=== PATIENT | male | born 1950 | race Caucasian/White ===

== ENCOUNTER 2017-10-02 21:35 | Emergency (ER) | payer MEDICARE, SELFPAY ==
[2017-10-02 21:37] VITALS: BP 166/88; PULSE 86; RESP 16; TEMP 37; O2SAT 98; BMI 29.8
[2017-10-02 21:59] VITALS: O2SAT 97
--- NOTE | 2017-10-02 21:59 | EKG12_ITS ---
Test Reason : CP Blood Pressure : / mmHG Vent. Rate : 085 BPM Atrial Rate : 085 BPM P-R Int : 168 ms QRS Dur : 098 ms QT Int : 386 ms P-R-T Axes : 035 -38 034 degrees QTc Int : 459 ms Normal sinus rhythm Left axis deviation Low voltage QRS Inferior infarct , age undetermined Anterolateral infarct , age undetermined Abnormal ECG Confirmed by RAY REYNA, BATSHEVA ([id number]), photographic editor RADHA FENG ([id number]) on 10/04/2017 3:39:02 PM Referred By: OSMIN Confirmed By:BATSHEVA BELL MD
--- NOTE | 2017-10-02 21:59 | RAD_ITS ---
STUDY: X-RAY CHEST REASON FOR EXAM: Male, 67 years old. Chest pain and cough TECHNIQUE: Portable COMPARISON: December 01, 2014 FINDINGS: The lungs are clear and expanded. There is no demonstrated pleural abnormality. Heart is enlarged. There is asymmetric mediastinal widening on the left. Normal visualized pulmonary arteries. Normal visualized aortic arch and descending thoracic aorta. Normal visualized thoracic spine. Normal visualized ribs, clavicles, and shoulders. Postop changes status post median sternotomy and CABG. There is no demonstrated abnormality of the visualized soft tissue structures of the upper abdomen. RAD/Chest 1 View (Portable) IMPRESSION: Heart is enlarged and asymmetric left mediastinal widening. . Possibility of mediastinal mass or aneurysmal excluded. CT would be helpful for further evaluation Electronically Signed: Devaughn Deshpande MD at 22:43 EDT , Service support ,
--- NOTE | 2017-10-02 22:02 | ED.VISSUMM ---
- ER Visit Summary Date of Service: 10/02/17 Chief Complaint: Chest pain History of Present Illness: The patient is a 67 M with chest pain that started at 8:30 PM tonight. The patient has a history of coronary disease and had a CABG just over 1 month ago at the [facility]. He does not know the surgeon's name. He has been doing well, walking a mile a day. The pain started tonight at 830 and is new. It lasts for a few seconds at a time, it is sharp, and it is over his left chest only. No other associated symptoms. No history of DVT. Physical Examination: Afebrile and vitals unremarkable. Patient sitting comfortably. Skin appears normal without pallor or diaphoresis. Heart regular rate and rhythm. Lungs clear. Calves soft and supple. Pulses strong and equal. Test Results: EKG showed sinus rhythm at a rate of 85. Nonspecific ST and T-wave changes. No acute ischemia or infarction pattern. Labs and chest x-ray are pending. Emergency Department Course and Treatment: Patient was placed on a monitor. He received aspirin. Will await results. Patient had continued episodes of pain. I did witness an episode. He coughs and then has sudden left-sided chest pain that lasts a few seconds, almost like a spasm. His workup here was fairly unremarkable. Hemoglobin slightly down at 10.9. BUN 28 and creatinine 1.45, slightly up. Coags normal. Troponin normal. Chest x-ray showed a widened mediastinum and so a CT was done. This showed no evidence of PE or dissection. He has some mediastinal lymph nodes, bilateral bronchiectasis, and atelectasis. Patient did not know the name of his doctor. I explained that I would normally like to speak with the surgeon for follow-up. He will call for follow-up in the morning. I do not think this is a surgical complication. His workup here was unremarkable. He is doing well and his vitals are unremarkable. He will return if he has any new or worsening issues. Treatment Plan: As above Disposition: Discharged Impression: 1. Chest pain unclear etiology This note was generated with [employer] software. It may contain incorrect words, spelling, and punctuation that were not noted in review of the chart prior to signing ED Disposition - Plan for ED Patient: Chief Complaint: Chest Pain Referrals: Luther Tavarez MD [STAFF PHYSICIAN] -
--- NOTE | 2017-10-02 22:05 | ED.DCSUM_ITS ---
- ER Visit Summary Date of Service: 10/02/17 Chief Complaint: Chest pain History of Present Illness: The patient is a 67 M with chest pain that started at 8:30 PM tonight. The patient has a history of coronary disease and had a CABG just over 1 month ago at the [facility]. He does not know the surgeon's name. He has been doing well, walking a mile a day. The pain started tonight at 830 and is new. It lasts for a few seconds at a time, it is sharp, and it is over his left chest only. No other associated symptoms. No history of DVT. Physical Examination: Afebrile and vitals unremarkable. Patient sitting comfortably. Skin appears normal without pallor or diaphoresis. Heart regular rate and rhythm. Lungs clear. Calves soft and supple. Pulses strong and equal. Test Results: EKG showed sinus rhythm at a rate of 85. Nonspecific ST and T- wave changes. No acute ischemia or infarction pattern. Labs and chest x-ray are pending. Emergency Department Course and Treatment: Patient was placed on a monitor. He received aspirin. Will await results. Patient had continued episodes of pain. I did witness an episode. He coughs and then has sudden left-sided chest pain that lasts a few seconds, almost like a spasm. His workup here was fairly unremarkable. Hemoglobin slightly down at 10.9. BUN 28 and creatinine 1.45, slightly up. Coags normal. Troponin normal. Chest x-ray showed a widened mediastinum and so a CT was done. This showed no evidence of PE or dissection. He has some mediastinal lymph nodes, bilateral bronchiectasis, and atelectasis. Patient did not know the name of his doctor. I explained that I would normally like to speak with the surgeon for follow-up. He will call for follow-up in the morning. I do not think this is a surgical complication. His workup here was unremarkable. He is doing well and his vitals are unremarkable. He will return if he has any new or worsening issues. Treatment Plan: As above Disposition: Discharged Impression: 1. Chest pain unclear etiology This note was generated with [employer] software. It may contain incorrect words, spelling, and punctuation that were not noted in review of the chart prior to signing ED Disposition - Plan for ED Patient: Chief Complaint: Chest Pain Referrals: Luther Tavarez MD [STAFF PHYSICIAN] -
[2017-10-02] MEDS: Aspirin 81 MG TAB.CHEW 324 MG PO (22:16)
[2017-10-02 22:24] LABS: Absolute Lymphocyte Count 3.44 X10^3/ul (0.83-4.51); Absolute Neutrophil Count 3.5 X10^3/uL (2.0-7.7); Basophil# 0.03 X10^3/uL; Basophil% 0.4 % (0-1); Eosinophil# 0.13 X10^3/uL; Eosinophils% 1.6 % (0-5); Hematocrit 34.9 % (40-54); Hemoglobin 10.9 g/dl (13.0-16.5); Lymphocyte # 3.44 X10^3/ul (4.0); Lymphocyte % 43.3 % (19-41); Mean Corp Hgb Conc 31.2 g/gl (32-36); Mean Corpuscular Hgb 26.5 pg (27.0-32.0); Mean Corpuscular Volume 84.7 fL (80-94); Mean Platelet Vol. 10.7 fl (6.2-12.0); Monocyte# 0.77 X10^3/uL; Monocyte% 9.7 % (0-10); Neutrophil # 3.51 X10^3/uL (2.7-7.7); Neutrophil % 44.1 % (47-70); Platelet Count 270 K/mm3 (150-450); RBC Distribution Width CV 14.6 % (11.6-14.6); RBC Distribution Width SD 45.4 fl (35.1-43.9); Red Blood Count 4.12 M/mm3 (4.6-6.2)
[2017-10-02 22:32] LABS: POSITIVE COUNT NO; POSITIVE DIFFERENTIAL NO; POSITIVE MORPHOLOGY NO
[2017-10-02 22:45] LABS: International Normalized Ratio 1.2; Prothrombin Time (Protime)PT. 15.5 SECONDS (11.7-14.9)
[2017-10-02 22:46] LABS: Partial Thromboplast Time 36.5 Seconds (24.1-36.2)
[2017-10-02 22:48] LABS: Anion Gap 6 (5-15); BUN 28 mg/dL (7-18); BUN/Creat Ratio 19.3 RATIO (10-20); Calcium,Total 9.1 mg/dL (8.5-10.1); Chloride 103 mmol/L (98-107); Creatinine, Serum 1.45 mg/dL (0.70-1.30); EST Glomerular Filtration Rate 51 mL/min (>60); Est Glom Filt Rate - Afr Amer 62 mL/min (>60); Estimated Creatinine Clearance 49.65 ml/min; Glucose 274 mg/dL (74-106); Potassium 3.8 mmol/L (3.5-5.1); Sodium Level 135 mmol/L (136-145)
[2017-10-02 23:36] VITALS: BP 153/69; PULSE 84; RESP 26; O2SAT 97
[2017-10-03] MEDS: HYDROmorphone 1 MG/ML Syringe IV (01:31)
[2017-10-03 01:32] VITALS: BP 145/74; PULSE 83; RESP 17; O2SAT 97
--- NOTE | 2017-10-03 02:44 | DCINST.ED_ITS ---
ED Disposition - Plan for ED Patient: Chief Complaint: Chest Pain Instructions: ED Chest Pain Atypical Unkn Cause Prescriptions: Hydrocodone Bitart/Apap 5-325 [[place] 5MG-325MG] 1 tab PO Q6H PRN PRN 3 Days #12 tab PRN Reason: Pain Referrals: Luther Tavarez MD [STAFF PHYSICIAN] -
[2017-10-03 03:17] VITALS: BP 134/82; PULSE 79; RESP 16; O2SAT 95
--- NOTE | 2017-10-03 23:47 | CT_ITS ---
STUDY: CTA CHEST REASON FOR EXAM: Male, 67 years old. Cough, sharp chest pain. Postop total bypass surgery August 15, 2017. RADIATION DOSAGE (If Supplied By Facility): CTDIvol = ( 16.51 ) mGy, DLP = ( 680.74 ) mGycm TECHNIQUE: The examination was performed with the intravenous administration of 100ML ml of Isovue 370 contrast material. Post-processing of the angiographic images was performed, with multiplanar reformation and 3D reconstruction. Individualized dose optimization techniques were used for this CT. COMPARISON: November 21, 2014. Chest x-ray October 02, 2017. FINDINGS: Normal enhancement of the main pulmonary artery and right and left pulmonary arteries. Normal enhancement of the bilateral peripheral pulmonary arteries. There is no demonstrated pulmonary embolism. Normal thoracic aorta and visualized great vessels. There is no demonstrated aortic dissection. Normal heart and pericardium. Scattered subcentimeter lymph nodes which are not pathologic by size criteria. Single mildly enlarged 1.3 cm prevascular lymph node unchanged. Normal hilar regions. Normal visualized trachea and bronchi. Bilateral lower lobe bronchiectasis. Bilateral lower lobe subsegmental atelectasis. Normal pulmonary parenchyma. Normal pleura. Sternal wires and surgical clips are present compatible with CABG. Mild degenerative changes of the thoracic spine. Mild loss of vertebral body height in several lower thoracic vertebral bodies which have remained stable. Normal visualized upper abdomen. CT/CTA Chest W/WO Contrast IMPRESSION: No pulmonary embolus or thoracic aortic dissection. Mildly enlarged mediastinal lymph nodes unchanged. Bilateral lower lobe bronchiectasis and subsegmental atelectasis. Electronically Signed: Rivera Sims MD at 1:37 EDT , Service support ,
== END 2017-10-03 03:19 | disposition home or self-care (01) ==
LOC: ED 22:03
PROVIDERS: Emergency Provider Emergency Medicine; Family Provider Family Medicine; PCP Family Medicine
DX: R07.9 Chest pain, unspecified (principal); J47.9 Bronchiectasis, uncomplicated; J98.11 Atelectasis; I25.10 Atherosclerotic heart disease of native coronary artery without angina pectoris; E11.9 Type 2 diabetes mellitus without complications; I10 Essential (primary) hypertension; G25.81 Restless legs syndrome; G47.33 Obstructive sleep apnea (adult) (pediatric); F43.10 Post-traumatic stress disorder, unspecified; X58.XXXA Exposure to other specified factors, initial encounter; Y93.9 Activity, unspecified; Y92.9 Unspecified place or not applicable; Y99.9 Unspecified external cause status; Z79.82 Long term (current) use of aspirin; Z79.4 Long term (current) use of insulin; Z79.899 Other long term (current) drug therapy; Z87.19 Personal history of other diseases of the digestive system
CPT/HCPCS: 71045; 71275; 80048; 84484; 85025; 85610; 85730; 93005; 96374; 99283; Q9967; A4216

== ENCOUNTER 2018-03-20 10:30 | Inpatient (IN) | payer MEDICARE, OTHER, SELFPAY ==
[2018-03-20] VITALS (14 sets, daily range): BP systolic 118–180; BP diastolic 70–96; PULSE 80–96; RESP 14–20; TEMP 36.5–36.7; O2SAT 95–97; BMI 32.2; BMI 31.6; BMI 31.7
--- NOTE | 2018-03-20 10:41 | EKG12_ITS ---
Test Reason : CP Blood Pressure : / mmHG Vent. Rate : 095 BPM Atrial Rate : 095 BPM P-R Int : 152 ms QRS Dur : 104 ms QT Int : 368 ms P-R-T Axes : 045 -33 049 degrees QTc Int : 462 ms Normal sinus rhythm Left axis deviation Inferior infarct , age undetermined Anterolateral infarct , age undetermined Abnormal ECG Confirmed by RAY REYNA, BATSHEVA ([id number]), purchasing expeditor RADHA FENG ([id number]) on 03/23/2018 2:26:11 PM Referred By: MIGUEL Confirmed By:BATSHEVA BELL MD
--- NOTE | 2018-03-20 10:45 | RAD_ITS ---
STUDY: X-RAY CHEST REASON FOR EXAM: Male, 67 years old. Chest pain. Prior CABG. TECHNIQUE: Single AP portable view of the chest. COMPARISON: Comparison is made with prior study dated October 02, 2017. FINDINGS: EKG electrodes are seen. Stable mild increased markings in the lingular segment of the left upper lobe suggestive of scarring. There is no demonstrated pleural abnormality. Sternal cerclage wires and vascular clips are present from a prior sternotomy and coronary artery bypass graft procedure (CABG). Moderate cardiomegaly. Normal mediastinum and sade. Normal visualized pulmonary arteries. Normal visualized aortic arch and descending thoracic aorta. Normal visualized thoracic spine. Normal visualized ribs, clavicles, and shoulders. There is no demonstrated abnormality of the visualized soft tissue structures of the upper abdomen. RAD/Chest 1 View (Portable) IMPRESSION: Cardiomegaly. No acute abnormality is seen. Electronically Signed: Checo Ball MD at 11:14 EST Tel [phone], Service support ,
[2018-03-20] MEDS: 0.9% Normal Saline 1,000 ML 150 ML IV (10:52)
[2018-03-20] MEDS: Aspirin 81 MG TAB.CHEW 324 MG PO (10:52)
[2018-03-20 10:57] LABS: Absolute Lymphocyte Count 2.25 X10^3/ul (0.83-4.51); Absolute Neutrophil Count 5.2 X10^3/uL (2.0-7.7); Basophil# 0.04 X10^3/uL; Basophil% 0.5 % (0-1); Eosinophil# 0.14 X10^3/uL; Eosinophils% 1.7 % (0-5); Hematocrit 40.7 % (40-54); Hemoglobin 13.3 g/dl (13.0-16.5); Lymphocyte # 2.25 X10^3/ul (4.0); Mean Corp Hgb Conc 32.7 g/gl (32-36); Mean Corpuscular Hgb 27.6 pg (27.0-32.0); Mean Corpuscular Volume 84.4 fL (80-94); Mean Platelet Vol. 12.3 fl (6.2-12.0); Monocyte# 0.62 X10^3/uL; Monocyte% 7.4 % (0-10); Neutrophil # 5.23 X10^3/uL (2.7-7.7); Neutrophil % 62.7 % (47-70); Platelet Count 174 K/mm3 (150-450); RBC Distribution Width CV 14.7 % (11.6-14.6); RBC Distribution Width SD 44.3 fl (35.1-43.9); Red Blood Count 4.82 M/mm3 (4.6-6.2); White Blood Count 8.3 K/mm3 (4.4-11.0)
[2018-03-20 10:59] LABS: POSITIVE COUNT NO; POSITIVE DIFFERENTIAL NO; POSITIVE MORPHOLOGY NO
[2018-03-20 11:05] LABS: D-Dimer Quantitative (DVT/PE) 2.83 FEU/ug/m (0.27-0.49)
--- NOTE | 2018-03-20 11:06 | CT_ITS ---
STUDY: CTA CHEST REASON FOR EXAM: Male, 67 years old. 2 day history of chest pain. Elevated d-dimer. RADIATION DOSAGE (If Supplied By Facility): CTDIvol = ( 17.65 ) mGy, DLP = ( 668.68 ) mGycm TECHNIQUE: The examination was performed with the intravenous administration of 100ml ml of Isovue 370 contrast material. Post-processing of the angiographic images was performed, with multiplanar reformation and 3D reconstruction. Individualized dose optimization techniques were used for this CT. COMPARISON: Comparison is made with prior study dated October 03, 2017. FINDINGS: Small bilateral axillary lymph nodes. Normal enhancement of the main pulmonary artery and right and left pulmonary arteries. Normal enhancement of the bilateral peripheral pulmonary arteries. There is no demonstrated pulmonary embolism. Normal thoracic aorta and visualized great vessels. There is no demonstrated aortic dissection. Sternal cerclage wires and vascular clips are present from a prior sternotomy and coronary artery bypass graft procedure (CABG). There are visualized mediastinal lymph nodes, which are within normal size limits, and with normal morphology. Normal hilar regions. Normal visualized trachea and bronchi. The lungs are well expanded. Stable minimal increased markings at the lung bases. Normal pleura. Normal chest wall structures. There are degenerative changes of thoracic spine. The patient is status post cholecystectomy. CT/CTA Chest W/WO Contrast IMPRESSION: Normal CTA chest examination, without a demonstrated pulmonary embolism or arterial dissection. Electronically Signed: Checo Ball MD at 12:46 EST Tel [phone], Service support ,
[2018-03-20 11:31] LABS: Anion Gap 9 (5-15); BUN 32 mg/dL (7-18); BUN/Creat Ratio 23.9 RATIO (10-20); Calcium,Total 9.2 mg/dL (8.5-10.1); Chloride 102 mmol/L (98-107); Creatinine, Serum 1.34 mg/dL (0.70-1.30); EST Glomerular Filtration Rate 56 mL/min (>60); Est Glom Filt Rate - Afr Amer 68 mL/min (>60); Estimated Creatinine Clearance 53.72 ml/min; Glucose 383 mg/dL (74-106); Potassium 4.5 mmol/L (3.5-5.1); Sodium Level 134 mmol/L (136-145)
--- NOTE | 2018-03-20 12:55 | ED.VISSUMM ---
- ER Visit Summary Date of Service: 03/20/18 Chief Complaint: [Chest pain] History of Present Illness: The patient is a 67 M [presents the emergency department complaint chest pain that started 3 or 4 days ago. Patient describes intermittent burning and stabbing in the retrosternal area and left chest. Patient denies any radiation of the pain. He denies any diaphoresis although he has had nausea and also complains of shortness of breath. Patient states the pain typically is brought on by activity and exertion. Patient had similar pains prior to requiring three-vessel CABG in August 2017. Patient denies recent travel or surgery. Patient is not on any blood thinners other than baby aspirin daily. Patient also has history of pancreatitis. Patient is a diabetic and history of hypertension.] Physical Examination: HEENT-PERRLA, EOMI. Cranial nerves II through XII grossly intact. TMs clear. Mucous membranes moist. No adenopathy. Cardiovascular-regular rate and rhythm without murmur or ectopy Lungs-clear to auscultation, chest wall stable without crepitus or subcu emphysema Abdomen-normoactive bowel sounds, soft, nontender, no rebound or rigidity, no peritoneal signs. 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 When compared with prior EKG from October 02, 2017 no significant changes noted. See with it was unremarkable. Chemistries unremarkable. Troponin was elevated 0.231. D-dimer was elevated 2.83. CT of the chest obtained showed no PE or dissection. Chest x-ray was unremarkable.] Emergency Department Course and Treatment: [Patient received aspirin in the emergency department as well as sublingual nitro which mostly resolved his pain. Patient had an inch of Nitropaste placed to the anterior chest wall. Patient was given a dose of Lovenox subcu.] Patient does not want to be transferred to the [place] and would prefer to remain at [place]. Treatment Plan: [Admit for further workup and evaluation. I discussed case with hospitalist who asked that I discussed case with cardiology. I was told wader boot top assembler on-call is currently in a procedure performing a heart catheterization but I did inform them that he would be consulted on the case.] Disposition: [Admit] Impression: [Chest pain Non-ST elevation [place]] This note was generated with [employer] dictation software. It may contain incorrect words, spelling, and punctuation that were not noted in review of the chart prior to signing ED Disposition - Plan for ED Patient: Chief Complaint: Chest Pain Referrals: Dima Tavarez MD [Primary Care Provider] -
--- NOTE | 2018-03-20 12:58 | ED.DCSUM_ITS ---
- ER Visit Summary Date of Service: 03/20/18 Chief Complaint: [Chest pain] History of Present Illness: The patient is a 67 M [presents the emergency department complaint chest pain that started 3 or 4 days ago. Patient describes intermittent burning and stabbing in the retrosternal area and left chest. Manoj can denies any radiation of the pain. He denies any diaphoresis although he has had nausea and also complains of shortness of breath. Patient states the pain typically is brought on by activity and exertion. Patient had similar pains prior to requiring three-vessel CABG in August 2017. Patient denies recent travel or surgery. Patient is not on any blood thinners other than baby aspirin daily. Patient also has history of pancreatitis. Patient is a diabetic and history of hypertension.] Physical Examination: HEENT-PERRLA, EOMI. Cranial nerves II through XII grossly intact. TMs clear. Mucous membranes moist. No adenopathy. Cardiovascular-regular rate and rhythm without murmur or ectopy Lungs-clear to auscultation, chest wall stable without crepitus or subcu e mphysema Abdomen-normoactive bowel sounds, soft, nontender, no rebound or rigidity, no peritoneal signs. 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 When compared with prior EKG from October 02, 2017 no significant changes noted. See with it was unremarkable. Chemistries unremarkable. Troponin was elevated 0.231. D-dimer was elevated 2.83. CT of the chest obtained showed no PE or dissection. Chest x-ray was unremarkable.] Emergency Department Course and Treatment: [Patient received aspirin in the emergency department as well as sublingual nitro which mostly resolved his pain. Patient had an inch of Nitropaste placed to the anterior chest wall. Patient was given a dose of Lovenox subcu.] Patient does not want to be transferred to the [place] and would prefer to remain at [place]. Treatment Plan: [Admit for further workup and evaluation. I discussed case with hospitalist who asked that I discussed case with cardiology. I was told car diologist on-call is currently in a procedure performing a heart catheterization but I did inform them that he would be consulted on the case.] Disposition: [Admit] Impression: [Chest pain Non-ST elevation [place]] This note was generated with [employer] dictation software. It may contain incorrect words, spelling, and punctuation that were not noted in review of the chart prior to signing ED Disposition - Plan for ED Patient: Chief Complaint: Chest Pain Referrals: Dima Tavarez MD [Primary Care Provider] -
[2018-03-20] MEDS: Enoxaparin 100 MG/ML Syringe SC ×2 (13:15→21:08)
[2018-03-20] MEDS: Nitroglycerin Oint 1 INCH PACKET TRANSDERM. (13:15)
--- NOTE | 2018-03-20 13:22 | HP.PCM_ITS ---
Problem List (1) Chest pain Status: Acute (2) Numbness and tingling in right hand Status: Chronic (3) Pancreatitis Status: Resolved (4) Chronic headaches Status: Chronic (5) Hypertension Status: Chronic (6) Neuropathy Status: Chronic (7) Obstructive sleep apnea Status: Chronic (8) Post traumatic stress disorder (PTSD) Status: Chronic (9) Restless legs syndrome Status: Chronic (10) Type 2 diabetes mellitus Status: Chronic (11) Hx of CABG Status: Chronic History of Present Illness Date of Admission: 03/20/18 Chief Complaint: Chest discomfort The patient is a 67 year old M with past medical history cigar for CAD status post CABG in August 2017 at [facility] in [place] who presented with chest discomfort. Patient reports weeks of intermittent chest discomfort similar to what he experienced prior to his bypass. Patient in addition did complain of shortness of breath with activity as well as persistent cough. He presented to the emergency department in view of the progressive nature of his symptoms. Patient was found to have slightly elevated troponin and an elevated d-dimer. Underwent CTA of the chest which was negative for PE no dissection. Treatment initiated in the ED with therapeutic Lovenox and patient admitted to a monitored bed for subsequent evaluation and management. Past Medical History Past Medical History (Chronic Problems): Chronic Problems Hx of CABG (Chronic) Post traumatic stress disorder (PTSD) (Chronic) Type 2 diabetes mellitus (Chronic) Neuropathy (Chronic) Obstructive sleep apnea (Chronic) Hypertension (Chronic) Restless legs syndrome (Chronic) Chronic headaches (Chronic) Numbness and tingling in right hand (Chronic) Allergies oxycodone [From OxyContin] Allergy (Verified 03/20/18 10:37) Shortness of breath atorvastatin [From Lipitor] Adverse Reaction (Verified 03/20/18 10:37) Other muscle weakness fish oil Adverse Reaction (Verified 03/20/18 10:37) Other muscle weakness morphine Adverse Reaction (Verified 03/20/18 10:37) Other MIGRAIN TAO Home Medications: Ambulatory Orders Medication Instructions Recorded Aspirin [Aspirin, Baby] 81 mg PO QODAY 11/21/14 Carbidopa/Levodopa 10/100 [Sinemet 1 tablet PO QHS PRN 12/23/16 10/100] Dextrose [Glucose] 4 gm PO PRN PRN 12/23/16 Insulin Aspart [Novolog Flexpen] 20 units SC DINNER 12/23/16 Insulin Aspart [Novolog Flexpen] 24 units SC BREAKFAST 12/23/16 Insulin Aspart [Novolog Flexpen] 28 units SC LUNCH 12/23/16 Insulin Glargine [Lantus SoloStar 60 units SC BID 12/23/16 Pen] Multivitamin,Therapeutic [Thera] 1 each PO DAILY 12/23/16 Omeprazole [Prilosec] 20 mg PO QODAY 12/23/16 Pregabalin [Lyrica] 150 mg PO Q8H 12/23/16 Pyridoxine HCl [Vitamin B-6] 100 mg PO DAILY 12/23/16 Thiamine HCl [Vitamin B-1] 100 mg PO DAILY 12/23/16 Ondansetron HCl [Zofran] 8 mg PO TID PRN #15 tablet 12/25/16 Gemfibrozil 600 mg PO BID 03/18/17 traZODone [Desyrel] 100 mg PO QHS PRN 03/18/17 Benzonatate [Tessalon Perle] 100 mg PO TID PRN 10/02/17 Fluticasone 0.05% [Flonase Nasal 2 spray NASAL BID 10/02/17 [place]] Furosemide [Lasix] 20 mg PO DAILY 10/02/17 Lisinopril [Zestril] 10 mg PO DAILY 10/02/17 Potassium Chloride [K-Dur] 20 meq PO DAILY 10/02/17 Topiramate [Topamax] 150 mg PO QHS 10/02/17 Surgical History: - - Ankle surgery, facial surgery secondary to accident Psychiatric History: Post traumatic stress Smoking Status: Never smoker - *Family History Maternal History Items: Cancer Paternal History Items: Stroke Review of Systems Constitutional: Denies: Anorexia, Chills, Fever, Night Sweats, Weight Change HEENT: Reports: Sinus Congestion. Denies: Head Aches, Sinus Drainage Cardiovascular: Reports: Chest Pain. Denies: Orthopnea, Palpitations, Paroxysmal Noc. Dyspnea Respiratory: Reports: Cough, Shortness of Breath. Denies: Shortness of breath at rest, Shortness of breath upon exertion, Sputum production Gastrointestinal: Denies: Abdominal Pain, Hematemesis, Hematochezia, Nausea, Melena, Vomiting Genitourinary: Denies: Dysuria, Frequency, Hematuria, Urgency Musculoskeletal: Denies: Joint Pain, Joint Tenderness Skin: Denies: Rash Neurological: Denies: Focal weakness, Numbness, Tingling Psychiatric: Denies: Homicidal Ideations, Suicidal Ideations Hematologic/ Lymphatic: Denies: Easy Bruising, Easy Bleeding VTE Information - Inpt Only VTE Present on Admission: No VTE Mechan Device Prophylaxis: Knee High WILFREDO Hose VTE Pharm Prophylaxis ordered?: Yes Objective: GENERAL: cooperative HEENT: Atraumatic; moist oral mucosa EYES; Anicteric, Normal Conjunctiva NECK; supple, normal thyroid, no distended JVD. RESPIRATORY: Diminished to auscultation bilaterally, CARDIOVASCULAR: Regular S1 S2, no audible murmurs GI: soft, non-tender, normoactive bowel sounds, : No Renal angle tenderness; EXTREMITIES: No edema, no clubbing, no cyanosis. MUSCULOSKELETAL: No Joint Tenderness; no muscle waisting NEURO: Awake; no lateralizing signs. SKIN: No Rash PSYCH; Normal affect - Physical Exam Vital Signs Temp Pulse Resp BP Pulse Ox 97.7 F L 80 20 H 174/85 H 97 03/20/18 10:31 03/20/18 13:15 03/20/18 10:31 03/20/18 13:15 03/20/18 10:31 Oxygen Flow Rate (L/min) 2 Oxygen Delivery Method Nasal Cannula Weight: 101.9 kg Body Mass Index (BMI) 32.2 Laboratory Tests Past 24 Hrs 03/20/18 03/20/18 03/20/18 10:33 10:33 10:33 WBC 8.3 RBC 4.82 Hgb 13.3 Hct 40.7 MCV 84.4 MCH 27.6 MCHC 32.7 RDW 14.7 H RDW Differential 44.3 H Plt Count 174 MPV 12.3 H Immature Gran % (Auto) 0.700 Neut % (Auto) 62.7 Lymph % (Auto) 27.0 [place] % (Auto) 7.4 Eos % (Auto) 1.7 Baso % (Auto) 0.5 Absolute Neuts (auto) 5.2 Absolute Lymphs (auto) 2.25 Total Counted Not Reportable D-Dimer Quant (PE/DVT) 2.83 H* Sodium 134 L Potassium 4.5 Chloride 102 Carbon Dioxide 23.0 Anion Gap 9 BUN 32 H Creatinine 1.34 H Estim Creat Clear Calc 53.72 Est GFR (MDRD) Af Amer 68 Est GFR (MDRD) Non-Af 56 L BUN/Creatinine Ratio 23.9 H Glucose 383 H Calcium 9.2 Troponin I 0.231 H Assessment/Plan All Active Problems Chest pain (Acute) Pancreatitis (Resolved) Patient is a 67-year-old gentleman with multiple comorbidities including CAD status post CABG in August 2017 presented with exertional dyspnea as well as chest pain. Patient was found to have elevated troponin on admission and assessment of unstable angina made admitted to a monitored bed for subsequent management 1. Acute N STEMI/unstable angina: Patient admitted to a monitored bed treatment initiated per protocol consisting of therapeutic Lovenox, beta-blockers, AN inhibitors and aspirin. Patient is not on statin therapy due to reported allergy. An echo was ordered for left ventricular function assessment and consultation placed to Dr. Olivarez 2. CAD with CABG in August 2017 requisition was placed to obtain [place] [facility] [place] 3. Diabetes mellitus type II: Placed on long acting insulin, Accu-Cheks a.c. and at bedtime and covered with sliding scale insulin 4. Persistent cough do suspect NA I induced cough plan is to switch to ARB prior to discharge 5. Dyslipidemia-patient is on gemfibrozil apparently allergic to statins, 6. GERD on PPI 7. Hypertension-blood pressure controlled, home medications continued with dose adjustment as needed 8. DVT prophylaxis patient is on therapeutic Lovenox Code Visit OBSV E&M: [id number] Initial observation care L3
--- NOTE | 2018-03-20 13:48 | ECHOCS_ITS ---
Reason For Study: S/P PR Procedure This was a 2D Doppler, Color Flow transthoracic echocardiogram. The study was technically difficult. Contrast injection was performed. Exam performed portable in patient room. Left Ventricle Normal LV size. Mild segmental systolic dysfunction (see wall motion). The estimated ejection fraction is 45 %. Mid-Inferior: Hypokinetic. Mid-inferoseptal : Hypokinetic. Mid-anteroseptal : Hypokinetic. Anterior [place] : Hypokinetic. Inferior [place] : Akinetic. Lateral [place] : Hypokinetic. Septal [place] : Akinetic. Right Ventricle Normal RV size. Normal systolic function. Atria Normal left atrium. Normal right atrium. No doppler evidence for ASD. Mitral Valve There is mild to moderate mitral annular calcification. Extension of the mitral annular calcification onto the posterior mitral valve leaflet. Mild (1+) mitral valve insufficiency. Tricuspid Valve Normal tricuspid valve. Mild tricuspid valve insufficiency. Right ventricular systolic pressure estimated to be 18 mmHg. Aortic Valve Trisinus/trileaflet aortic valve. Mild focal aortic valve thickening. Trivial aortic valve insufficiency. Pulmonic Valve The pulmonic valve is not well visualized. Trivial pulmonic valve insufficiency. Great Vessels Normal sized aortic root. Pericardium/Pleural No pericardial effusion. Medication Diluted definity 3ml given slow IV push to enhance endocardial definition. MMode/2D Measurements & Calculations LVIDd: 4.5 cm IVSd: 1.1 cm Ao root diam: 3.5 cm LVIDs: 3.3 cm LVPWd: 1.3 cm RVDd: 4.0 cm FS: 26.9 % LAV(MOD-bp): 67.4 ml EDV(MOD-sp4): 163.0 ml EDV(MOD-sp2): 138.1 ml LAV(MOD-bp) Indexed: 30.7 ml/m2 ESV(MOD-sp4): 95.0 ml EF(MOD-sp2): 44.0 % LAV(MOD-sp2): 81.6 ml EF(MOD-sp4): 41.8 % LAV(MOD-sp4): 52.5 ml SV(MOD-sp4): 68.1 ml SV(MOD-sp2): 60.8 ml LA A4 area: 19.2 cm2 LA dimension(2D): 5.1 cm RA A4 area: 14.8 cm2 Time Measurements MV dec time: 0.22 sec Doppler Measurements & Calculations MV E max fazal: 112.6 cm/sec Lat Peak E' Fazal: 4.4 cm/sec Med Peak E' Fazal: 3.9 cm/sec MV A max fazal: 91.2 cm/sec E/E' lat: 25.6 E/E' med: 28.7 MV E/A: 1.2 Ao V2 max: 152.8 cm/sec LV V1 max: 99.0 cm/sec TR max fazal: 195.0 cm/sec Ao max P.3 mmHg LV V1 max P.9 mmHg TR max P.2 mmHg Ao V2 mean: 110.9 cm/sec LV V1 mean P.1 mmHg Ao mean P.4 mmHg LV V1 mean: 69.1 cm/sec Ao V2 VTI: 31.7 cm LV V1 VTI: 20.6 cm Interpretation Summary The study was technically difficult. Contrast injection was performed. Mild segmental systolic dysfunction (see wall motion). The estimated ejection fraction is 45 %. There is mild to moderate mitral annular calcification. Extension of the mitral annular calcification onto the posterior mitral valve leaflet. Mild (1+) mitral valve insufficiency. Mild tricuspid valve insufficiency. Mild focal aortic valve thickening. Trivial aortic valve insufficiency. Trivial pulmonic valve insufficiency. Right ventricular systolic pressure estimated to be 18 mmHg. Transmitral diastolic flow velocities suggest diastolic dysfunction (pseudonormal pattern). Ordering Physician: Prabhu Israel Referring Physician: SONJA EDWARD Performed By: Sophia Pichardo, ANKUR, RVT
--- NOTE | 2018-03-20 13:55 | EKG12_ITS ---
Test Reason : CP Blood Pressure : / mmHG Vent. Rate : 083 BPM Atrial Rate : 083 BPM P-R Int : 156 ms QRS Dur : 098 ms QT Int : 386 ms P-R-T Axes : 044 -25 049 degrees QTc Int : 453 ms Normal sinus rhythm Inferior infarct , age undetermined Anterior infarct , age undetermined Abnormal ECG When compared with ECG of 20-MAR-2018 10:31, MANUAL COMPARISON REQUIRED, DATA IS UNCONFIRMED Confirmed by RAY REYNA, BATSHEVA ([id number]), department editor RADHA FENG ([id number]) on 03/23/2018 3:07:20 PM Referred By: Confirmed By:BATSHEVA BELL MD
[2018-03-20] MEDS: Pregabalin 50 MG Capsule 150 MG PO ×2 (14:33→21:14)
[2018-03-20] MEDS: Acetaminophen 325 MG Tablet 650 MG PO (14:59)
[2018-03-20] MEDS: 0.9% NaCl Peripheral Flush Adult/Peds IV (17:44)
[2018-03-20] MEDS: HYDROmorphone 0.5 MG/0.5 ML SYRINGE IV (17:45)
[2018-03-20 17:55] LABS: Bedside Glucose 330 mg/dL (70-110)
[2018-03-20] MEDS: Insulin Lispro 100 UNIT/ML INSULN.PEN SQ ×2 (18:16→21:12)
[2018-03-20] MEDS: Insulin Lispro 100 UNIT/ML INSULN.PEN 20 UNIT SC (18:16)
--- NOTE | 2018-03-20 19:20 | PCM.CONS.C ---
Problem List (1) NSTEMI (non-ST elevated myocardial infarction) Status: Acute (2) CAD (coronary artery disease) Status: Chronic (3) Hx of CABG Status: Chronic (4) HLD (hyperlipidemia) Status: Chronic (5) Hypertension Status: Chronic (6) Type 2 diabetes mellitus Status: Chronic (7) Carotid artery disease Status: Chronic Qualifiers: Laterality: bilateral Reason for Consult Date of Consultation: 03/20/18 History of Present Illness: The patient is a 67 year old white male with a past medical history of hyperlipidemia, hypertension, diabetes mellitus, CAD, status post CABG ([facility]: August 25, 2017: GARCIA to the LAD, SVG to the intermediate ramus, SVG to the posterior left ventricular branch), who presents for evaluation of chest discomfort and abnormal cardiac enzymes concerning for a non-ST segment elevation CO. The patient states that he has been having resting chest discomfort which he describes as sharp but burning. He has had discomfort over his xiphoid process area but also along his left sternal border to the left pectoral area. He has had shortness of breath and dyspnea. There has been no obvious nausea, emesis, or diaphoresis. There has been no near syncope or syncope. He does state that he has been coughing ever since his CABG in August of this year. He does not recall whether he has been on an AN inhibitor the entire time or not. He states when he does cough it can create a popping sensation near the tip of his xiphoid process. He states he has had no postoperative evaluation by the [facility] other than a postoperative office visit. Based upon his ongoing symptoms he presented to the hospital for further evaluation. He was noted to have indeterminate troponin I levels concerning for a non-ST segment elevation CO. His ECG demonstrated sinus rhythm with patterns compatible with a previous anterior CO of indeterminate age and inferior CO of indeterminate age. He is unaware of being told that he ever had an CO. He also states that he has been intolerant to lipid-lowering medication including statins and fish oil. [] Past Medical History Allergies/Adverse Reactions: Allergies oxycodone [From OxyContin] Allergy (Verified 03/20/18 10:37) Shortness of breath atorvastatin [From Lipitor] Adverse Reaction (Verified 03/20/18 10:37) Other muscle weakness fish oil Adverse Reaction (Verified 03/20/18 10:37) Other muscle weakness morphine Adverse Reaction (Verified 03/20/18 10:37) Other MIGRAIN TAO Home Medications: Ambulatory Orders Medication Instructions Recorded Aspirin [Aspirin, Baby] 81 mg PO QODAY 11/21/14 Carbidopa/Levodopa 10/100 [Sinemet 1 tablet PO QHS PRN 12/23/16 10/100] Dextrose [Glucose] 4 gm PO PRN PRN 12/23/16 Insulin Aspart [Novolog Flexpen] 20 units SC DINNER 12/23/16 Insulin Aspart [Novolog Flexpen] 24 units SC BREAKFAST 12/23/16 Insulin Aspart [Novolog Flexpen] 28 units SC LUNCH 12/23/16 Insulin Glargine [Lantus SoloStar 60 units SC BID 12/23/16 Pen] Multivitamin,Therapeutic [Thera] 1 each PO DAILY 12/23/16 Pregabalin [Lyrica] 150 mg PO Q8H 12/23/16 Pyridoxine HCl [Vitamin B-6] 100 mg PO DAILY 12/23/16 Thiamine HCl [Vitamin B-1] 100 mg PO DAILY 12/23/16 Ondansetron HCl [Zofran] 8 mg PO TID PRN #15 tablet 12/25/16 traZODone [Desyrel] 100 mg PO QHS PRN 03/18/17 Benzonatate [Tessalon Perle] 100 mg PO TID PRN 10/02/17 Fluticasone 0.05% [Flonase Nasal 2 spray NASAL BID PRN 10/02/17 [place]] Furosemide [Lasix] 20 mg PO DAILY 10/02/17 Lisinopril [Zestril] 10 mg PO DAILY 10/02/17 Potassium Chloride [K-Dur] 20 meq PO DAILY 10/02/17 Topiramate [Topamax] 150 mg PO QHS 10/02/17 Lipase/Protease/Amylase [Creon Dr 2 capsule PO TIDCM 03/20/18 24,000 Units Capsule] Past Medical History (Chronic Problems): Chronic Problems Hx of CABG (Chronic) CAD (coronary artery disease) (Chronic) HLD (hyperlipidemia) (Chronic) Carotid artery disease (Chronic) Post traumatic stress disorder (PTSD) (Chronic) Type 2 diabetes mellitus (Chronic) Neuropathy (Chronic) Obstructive sleep apnea (Chronic) Hypertension (Chronic) Restless legs syndrome (Chronic) Chronic headaches (Chronic) Numbness and tingling in right hand (Chronic) Surgical History: coronary bypass surgery, - - Ankle surgery, facial surgery secondary to accident Psychiatric History: Post traumatic stress - *Family History Maternal History Items: Cancer Paternal History Items: Stroke Smoking Status: Never smoker Alcohol: None Drugs: None Review of Systems - Review of Systems General: Denies: Fever, Night Sweats, Fatigue Cardiovascular: Reports: Chest Discomfort, Chest Discomfort at Rest, Shortness of Breath, Shortness of Breath at Rest. Denies: Orthopnea, PND, Peripheral Edema, Palpitations, Lightheadedness, Dizziness, Near Syncope, Syncope Respiratory: Reports: Cough, Non Productive Cough, Shortness of Breath. Denies: Sputum Production, Hemoptysis Gastrointestinal: Denies: Hematemesis, Hematochezia, Melena Genitourinary: Denies: Dysuria, Hematuria Skin: Denies: Rash Subjectve: This is a 67-year-old white male who appears to be resting comfortably at the moment in no acute distress. Objective: Vital Signs Temp Pulse Resp BP Pulse Ox 98.1 F 96 18 166/85 H 96 03/20/18 14:01 03/20/18 17:00 03/20/18 18:23 03/20/18 14:01 03/20/18 18:23 Oxygen Flow Rate (L/min) 2 Oxygen Delivery Method Room Air Weight: 220 lb 10.923 oz Body Mass Index (BMI) 31.6 Intake and Output for Last 24 Hours 03/18/18 03/19/18 03/20/18 23:59 23:59 23:59 Intake Total 350 / 350 Balance 350 / 350 General: Awake, Alert, Oriented x 3, Cooperative, No Acute Distress HEENT: Atraumatic, Normocephalic, PERRL Oral: Moist Mucosa Neck: Supple, Good ROM, No JVD Lungs: Clear to auscultation Cardiovascular: Regular Rhythm, Normal S1, Normal S2 Vascular: Naveen Carotid Artery Bruits Abdomen: Bowel Sounds Present, Soft, Non Tender Extremities: No Cyanosis, No Clubbing, No edema Neurological: No Focal Motor or Sensory Deficit Psych/Mental Status: Appropriate 03/20/18 10:33: WBC 8.3, RBC 4.82, Hgb 13.3, Hct 40.7, MCV 84.4, MCH 27.6, MCHC 32.7, RDW 14.7 H, RDW Differential 44.3 H, Plt Count 174, MPV 12.3 H, Immature Gran % (Auto) 0.700, Neut % (Auto) 62.7, Lymph % (Auto) 27.0, [place] % (Auto) 7.4, Eos % (Auto) 1.7, Baso % (Auto) 0.5, Absolute Neuts (auto) 5.2, Total Counted Not Reportable 03/20/18 10:33: D-Dimer Quant (PE/DVT) 2.83 H* 03/20/18 10:33: Sodium 134 L, Potassium 4.5, Chloride 102, Carbon Dioxide 23.0, Anion Gap 9, BUN 32 H, Creatinine 1.34 H, Est GFR (MDRD) Af Amer 68, Est GFR (MDRD) Non-Af 56 L, BUN/Creatinine Ratio 23.9 H, Glucose 383 H, Calcium 9.2, Troponin I 0.231 H 03/20/18 14:00: Troponin I 0.209 H 03/20/18 16:30: Troponin I 0.253 H Rhythm: Sinus rhythm EKG: As noted above ECHO: [facility]: 08/25/2017: Left ventricle: Normal with an LVEF of 55-60% CT Surgery: [facility]: 08/25/2017: GARCIA to the LAD; SVG to the intermediate ramus; SVG to the posterior left ventricular branch CXR: Postoperative surgical changes; no acute cardiopulmonary disease reported Chest CT Scan: No acute great vessel disease reported Assessment/Plan 1. Non-ST segment elevation CO The patient has chest discomfort, history of CAD status post CABG, and now with indeterminate troponin I levels otherwise unexplained concerning for a non-ST segment elevation CO. The present time he is continuing to be monitored. This will include cardiac enzyme follow-up, ECG follow-up, all as deemed appropriate. He will continue medical therapy. This will include aspirin, the addition of antiplatelets, nitrates as needed, the addition of beta-blockers, and lipid-lowering agents if tolerated. It is been recommended the patient be considered for further evaluation with diagnostic cardiac catheterization. The procedure and risks were discussed with the patient and his family members present. He was agreeable to this approach. 2. CAD status post CABG Again the patient has ongoing concerns of chest discomfort and indeterminate troponin I levels. He will continue evaluation care as noted above. 3. Hyperlipidemia The patient states he is intolerant to statins and fish oil. Hopefully he will be tolerant to some form of lipid-lowering therapy which may benefit his cardiovascular status. 4. Hypertension The patient will need continued medical management as deemed appropriate. Depending upon the patient's clinical course, if he has been on an AN inhibitor and there is concern his cough may be related to an AN inhibitor, then will need to be discontinued and he will need to attempt alternative antihypertensive therapy. 5. Diabetes mellitus He will continue under the care of internal medicine. 6. Carotid artery disease He does have bilateral carotid artery bruits. He has had a carotid artery duplex study performed at the [facility]. Per the reports available for review the right carotid artery was reported as mild in the left carotid artery was reported as moderate. He will need continued risk factor evaluation care as deemed appropriate. Comment: The patient's case was discussed and reviewed with patient, his family members present, and Dr. Israel of the [facility] staff. This note was generated with [employer] dictation software. It may contain incorrect words, spelling, and punctuation that were not noted in checking the note before signing.
--- NOTE | 2018-03-20 19:24 | CON.PCM_ITS ---
Problem List (1) NSTEMI (non-ST elevated myocardial infarction) Status: Acute (2) CAD (coronary artery disease) Status: Chronic (3) Hx of CABG Status: Chronic (4) HLD (hyperlipidemia) Status: Chronic (5) Hypertension Status: Chronic (6) Type 2 diabetes mellitus Status: Chronic (7) Carotid artery disease Status: Chronic Qualifiers: Laterality: bilateral Reason for Consult Date of Consultation: 03/20/18 History of Present Illness: The patient is a 67 year old white male with a past medical history of hyperlipidemia, hypertension, diabetes mellitus, CAD, status post CABG ([facility]: August 25, 2017: GARCIA to the LAD, SVG to the intermediate ramus, SVG to the posterior left ventricular branch), who presents for evaluation of chest discomfort and abnormal cardiac enzymes concerning for a non-ST segment elevation AR. The patient states that he has been having resting chest discomfort which he describes as sharp but burning. He has had discomfort over his xiphoid process area but also along his left sternal border to the left pectoral area. He has had shortness of breath and dyspnea. There has been no obvious nausea, emesis, or diaphoresis. There has been no near syncope or syncope. He does state that he has been coughing ever since his CABG in August of this year. He does not recall whether he has been on an AN inhibitor the entire time or not. He states when he does cough it can create a popping sensation near the tip of his xiphoid process. He states he has had no postoperative evaluation by the [facility] other than a postoperative office visit. Based upon his ongoing symptoms he presented to the hospital for further evaluation. He was noted to have indeterminate troponin I levels concerning for a non-ST segment elevation AR. His ECG demonstrated sinus rhythm with patterns compatible with a previous anterior AR of indeterminate age and inferior AR of indeterminate age. He is unaware of being told that he ever had an AR. He also states that he has been intolerant to lipid-lowering medication including statins and fish oil. [] Past Medical History Allergies/Adverse Reactions: Allergies oxycodone [From OxyContin] Allergy (Verified 03/20/18 10:37) Shortness of breath atorvastatin [From Lipitor] Adverse Reaction (Verified 03/20/18 10:37) Other muscle weakness fish oil Adverse Reaction (Verified 03/20/18 10:37) Other muscle weakness morphine Adverse Reaction (Verified 03/20/18 10:37) Other MIGRAIN TAO Home Medications: Ambulatory Orders Medication Instructions Recorded Aspirin [Aspirin, Baby] 81 mg PO QODAY 11/21/14 Carbidopa/Levodopa 10/100 [Sinemet 1 tablet PO QHS PRN 12/23/16 10/100] Dextrose [Glucose] 4 gm PO PRN PRN 12/23/16 Insulin Aspart [Novolog Flexpen] 20 units SC DINNER 12/23/16 Insulin Aspart [Novolog Flexpen] 24 units SC BREAKFAST 12/23/16 Insulin Aspart [Novolog Flexpen] 28 units SC LUNCH 12/23/16 Insulin Glargine [Lantus SoloStar 60 units SC BID 12/23/16 Pen] Multivitamin,Therapeutic [Thera] 1 each PO DAILY 12/23/16 Pregabalin [Lyrica] 150 mg PO Q8H 12/23/16 Pyridoxine HCl [Vitamin B-6] 100 mg PO DAILY 12/23/16 Thiamine HCl [Vitamin B-1] 100 mg PO DAILY 12/23/16 Ondansetron HCl [Zofran] 8 mg PO TID PRN #15 tablet 12/25/16 traZODone [Desyrel] 100 mg PO QHS PRN 03/18/17 Benzonatate [Tessalon Perle] 100 mg PO TID PRN 10/02/17 Fluticasone 0.05% [Flonase Nasal 2 spray NASAL BID PRN 10/02/17 [place]] Furosemide [Lasix] 20 mg PO DAILY 10/02/17 Lisinopril [Zestril] 10 mg PO DAILY 10/02/17 Potassium Chloride [K-Dur] 20 meq PO DAILY 10/02/17 Topiramate [Topamax] 150 mg PO QHS 10/02/17 Lipase/Protease/Amylase [Creon Dr 2 capsule PO TIDCM 03/20/18 24,000 Units Capsule] Past Medical History (Chronic Problems): Chronic Problems Hx of CABG (Chronic) CAD (coronary artery disease) (Chronic) HLD (hyperlipidemia) (Chronic) Carotid artery disease (Chronic) Post traumatic stress disorder (PTSD) (Chronic) Type 2 diabetes mellitus (Chronic) Neuropathy (Chronic) Obstructive sleep apnea (Chronic) Hypertension (Chronic) Restless legs syndrome (Chronic) Chronic headaches (Chronic) Numbness and tingling in right hand (Chronic) Surgical History: coronary bypass surgery, - - Ankle surgery, facial surgery secondary to accident Psychiatric History: Post traumatic stress - *Family History Maternal History Items: Cancer Paternal History Items: Stroke Smoking Status: Never smoker Alcohol: None Drugs: None Review of Systems - Review of Systems General: Denies: Fever, Night Sweats, Fatigue Cardiovascular: Reports: Chest Discomfort, Chest Discomfort at Rest, Shortness of Breath, Shortness of Breath at Rest. Denies: Orthopnea, PND, Peripheral Edema, Palpitations, Lightheadedness, Dizziness, Near Syncope, Syncope Respiratory: Reports: Cough, Non Productive Cough, Shortness of Breath. Denies: Sputum Production, Hemoptysis Gastrointestinal: Denies: Hematemesis, Hematochezia, Melena Genitourinary: Denies: Dysuria, Hematuria Skin: Denies: Rash Subjectve: This is a 67-year-old white male who appears to be resting comfortably at the moment in no acute distress. Objective: Vital Signs Temp Pulse Resp BP Pulse Ox 98.1 F 96 18 166/85 H 96 03/20/18 14:01 03/20/18 17:00 03/20/18 18:23 03/20/18 14:01 03/20/18 18:23 Oxygen Flow Rate (L/min) 2 Oxygen Delivery Method Room Air Weight: 220 lb 10.923 oz Body Mass Index (BMI) 31.6 Intake and Output for Last 24 Hours 03/18/18 03/19/18 03/20/18 23:59 23:59 23:59 Intake Total 350 / 350 Balance 350 / 350 General: Awake, Alert, Oriented x 3, Cooperative, No Acute Distress HEENT: Atraumatic, Normocephalic, PERRL Oral: Moist Mucosa Neck: Supple, Good ROM, No JVD Lungs: Clear to auscultation Cardiovascular: Regular Rhythm, Normal S1, Normal S2 Vascular: Naveen Carotid Artery Bruits Abdomen: Bowel Sounds Present, Soft, Non Tender Extremities: No Cyanosis, No Clubbing, No edema Neurological: No Focal Motor or Sensory Deficit Psych/Mental Status: Appropriate 03/20/18 10:33: WBC 8.3, RBC 4.82, Hgb 13.3, Hct 40.7, MCV 84.4, MCH 27.6, MCHC 32.7, RDW 14.7 H, RDW Differential 44.3 H, Plt Count 174, MPV 12.3 H, Immature Gran % (Auto) 0.700, Neut % (Auto) 62.7, Lymph % (Auto) 27.0, [place] % (Auto) 7.4, Eos % (Auto) 1.7, Baso % (Auto) 0.5, Absolute Neuts (auto) 5.2, Total Counted Not Reportable 03/20/18 10:33: D-Dimer Quant (PE/DVT) 2.83 H* 03/20/18 10:33: Sodium 134 L, Potassium 4.5, Chloride 102, Carbon Dioxide 23.0, Anion Gap 9, BUN 32 H, Creatinine 1.34 H, Est GFR (MDRD) Af Amer 68, Est GFR (MDRD) Non-Af 56 L, BUN/Creatinine Ratio 23.9 H, Glucose 383 H, Calcium 9.2, Troponin I 0.231 H 03/20/18 14:00: Troponin I 0.209 H 03/20/18 16:30: Troponin I 0.253 H Rhythm: Sinus rhythm EKG: As noted above ECHO: [facility]: 08/25/2017: Left ventricle: Normal with an LVEF of 55-60% CT Surgery: [facility]: 08/25/2017: GARCIA to the LAD; SVG to the intermediate ramus; SVG to the posterior left ventricular branch CXR: Postoperative surgical changes; no acute cardiopulmonary disease reported Chest CT Scan: No acute great vessel disease reported Assessment/Plan 1. Non-ST segment elevation AR The patient has chest discomfort, history of CAD status post CABG, and now with indeterminate troponin I levels otherwise unexplained concerning for a non-ST segment elevation AR. The present time he is continuing to be monitored. This will include cardiac enzyme follow-up, ECG follow-up, all as deemed appropriate. He will continue medical therapy. This will include aspirin, the addition of antiplatelets, nitrates as needed, the addition of beta-blockers, and lipid- lowering agents if tolerated. It is been recommended the patient be considered for further evaluation with diagnostic cardiac catheterization. The procedure and risks were discussed with the patient and his family members present. He was agreeable to this approach. 2. CAD status post CABG Again the patient has ongoing concerns of chest discomfort and indeterminate troponin I levels. He will continue evaluation care as noted above. 3. Hyperlipidemia The patient states he is intolerant to statins and fish oil. Hopefully he will be tolerant to some form of lipid-lowering therapy which may benefit his cardiovascular status. 4. Hypertension The patient will need continued medical management as deemed appropriate. Depending upon the patient's clinical course, if he has been on an AN inhibitor and there is concern his cough may be related to an AN inhibitor, then will need to be discontinued and he will need to attempt alternative antihypertensive therapy. 5. Diabetes mellitus He will continue under the care of internal medicine. 6. Carotid artery disease He does have bilateral carotid artery bruits. He has had a carotid artery duplex study performed at the [facility]. Per the reports available for review the right carotid artery was reported as mild in the left carotid artery was reported as moderate. He will need continued risk factor evaluation care as deemed appropriate. Comment: The patient's case was discussed and reviewed with patient, his family members present, and Dr. Israel of the [facility] staff. This note was generated with [employer] dictation software. It may contain incorrect words, spelling, and punctuation that were not noted in checking the note before signing.
[2018-03-20] MEDS: Docusate Sodium 100 MG Capsule PO (21:07)
[2018-03-20] MEDS: Famotidine 20 MG Tablet PO (21:07)
[2018-03-20] MEDS: Topiramate 50 MG Tablet 150 MG PO (21:07)
[2018-03-20] MEDS: Clopidogrel Bisulfate 300 MG Tablet PO (21:08)
[2018-03-20] MEDS: Metoprolol Tartrate 25 MG Tablet PO (21:09)
[2018-03-20] MEDS: 0.9% Normal Saline 1,000 ML 50 ML IV (21:09)
[2018-03-21] VITALS (27 sets, daily range): BP systolic 104–183; BP diastolic 57–88; PULSE 55–88; RESP 11–26; TEMP 36.4–37.4; O2SAT 94–99; BMI 31.6
[2018-03-21 00:36] LABS: Bedside Glucose 200 mg/dL (70-110)
[2018-03-21] MEDS: LORazepam 2 MG/ML Syringe 1 MG IV (01:50)
[2018-03-21] MEDS: 0.9% NaCl Peripheral Flush Adult/Peds IV (01:50)
[2018-03-21 05:34] LABS: Hematocrit 42.3 % (40-54); Hemoglobin 13.6 g/dl (13.0-16.5); Mean Corp Hgb Conc 32.2 g/gl (32-36); Mean Corpuscular Hgb 26.9 pg (27.0-32.0); Mean Corpuscular Volume 83.8 fL (80-94); Mean Platelet Vol. 11.6 fl (6.2-12.0); Platelet Count 174 K/mm3 (150-450); RBC Distribution Width CV 14.4 % (11.6-14.6); RBC Distribution Width SD 44.2 fl (35.1-43.9); Red Blood Count 5.05 M/mm3 (4.6-6.2); Scan Indicated on CBC? Y/N NO; White Blood Count 9.1 K/mm3 (4.4-11.0)
[2018-03-21 05:38] LABS: International Normalized Ratio 1.2; Prothrombin Time (Protime)PT. 14.7 SECONDS (11.7-14.9)
[2018-03-21 05:39] LABS: Partial Thromboplast Time 41.2 Seconds (24.1-36.2)
[2018-03-21] MEDS: Lisinopril 10 MG Tablet PO (05:49)
[2018-03-21] MEDS: Metoprolol Tartrate 25 MG Tablet PO (05:49)
[2018-03-21] MEDS: Clopidogrel Bisulfate 75 MG Tablet PO (05:49)
--- NOTE | 2018-03-21 05:55 | EKG12_ITS ---
Test Reason : POST PCI Blood Pressure : / mmHG Vent. Rate : 076 BPM Atrial Rate : 076 BPM P-R Int : 174 ms QRS Dur : 098 ms QT Int : 390 ms P-R-T Axes : 060 -24 051 degrees QTc Int : 438 ms Normal sinus rhythm Inferior infarct , age undetermined Anteroseptal infarct , age undetermined Abnormal ECG When compared with ECG of 21-MAR-2018 05:57, MANUAL COMPARISON REQUIRED, DATA IS UNCONFIRMED Confirmed by RAY REYNA, BATSHEVA ([id number]), news videotape editor RADHA FENG ([id number]) on 03/23/2018 3:17:25 PM Referred By: RON Confirmed By:BATSHEVA BELL MD
[2018-03-21 06:01] LABS: Anion Gap 9 (5-15); BUN 24 mg/dL (7-18); BUN/Creat Ratio 21.6 RATIO (10-20); Calcium,Total 8.9 mg/dL (8.5-10.1); Chloride 105 mmol/L (98-107); Cholesterol 222 mg/dL (200); Creatinine, Serum 1.11 mg/dL (0.70-1.30); EST Glomerular Filtration Rate 70 mL/min (>60); Est Glom Filt Rate - Afr Amer 84 mL/min (>60); Estimated Creatinine Clearance 64.85 ml/min; Glucose 138 mg/dL (74-106); High Density Lipoprotein 20 mg/dL; Potassium 4.4 mmol/L (3.5-5.1); Sodium Level 138 mmol/L (136-145); Thyroid Stim Hormone (TSH) 2.87 uIU/mL (0.358-3.74); Triglycerides 617 mg/dL
[2018-03-21] MEDS: Pregabalin 50 MG Capsule 150 MG PO ×3 (06:08→21:25)
[2018-03-21 06:55] LABS: Bedside Glucose 165 mg/dL (70-110)
--- NOTE | 2018-03-21 08:42 | NURSING ---
Report called to Side Gluer RN
--- NOTE | 2018-03-21 10:08 | CASEMGMT ---
According to registration notes, pt has [facility] coverage as primary and then [employer] as secondary. According to [employer] website, the following are in-network tertiary facilities: [facility], [place], [facility], [facility], [facility], [facility] and . Brea DRIVER CM
--- NOTE | 2018-03-21 10:25 | CASEMGMT ---
[facility] to [facility] at this time. Pt is out of the dept for heart cath at this time and this RN CM unable to clarify whether pt would like to be [facility] the [facility] or not at this time. SStaten NEISHA CM
--- NOTE | 2018-03-21 10:41 | NURSING ---
Report called to ICU; Report given to Carla DRIVER
--- NOTE | 2018-03-21 10:43 | NURSING ---
Reviewed and agreed on all charting with Dorian Clement RN
--- NOTE | 2018-03-21 11:11 | CL.I_ITS ---
Patient Name: CAMDEN HOLDER Study Date: 03/21/2018 Performing: Scott Monique MD Ht: 70.08 inches 178 cm : 1950 Wt: 220.46 lbs 100 kg Age: 67 Gender: male BSA: 2.18 PROCEDURE(S) PERFORMED [id number] W OR WO PTCA, SINGLE CORONARY ARTERY CLINICAL PROFILE AND CO-MORBIDITIES Patient presents with NSTEMI for urgent cardiac cath Indications: Suspected CAD, ACS > 24 hrs, Worsening Angina, Stable Known CAD Heart Failure: None Stress/Imaging Stress/Image Study Performed: No Stress/Image Study Performed: No Angina Classification Anginal Classification w/in 2 Weeks: CCS IV CAD Presentations: Non-STEMI. Non-STEMI. Symptom onset Date/Time: 03/20/2018 Time Not Available Comorbidities/Risk Factors: Hypertension Dyslipidemia Family History of Premature CAD Prior CABG Diabetes Mellitus: Diabetes Therapy: Insulin CONCLUSIONS Successful PTCA/PHAN of proximal OM#2 with a 2.25 x 12 Promus Synergy stent; 90%-->0%, no dissection. Unable to cannulate main AV LCX due to tortuosity despite multiple wires. No additional attempts mad e due to reaching fluoro and IV contrast dye thresholds. RECOMMENDATIONS Highly recommend quitting all tobacco products Follow up with primary bread molder Risk factor modification ASA Indefinitley Plavix for at least 12 months Routine post interventional care Refer for Outpatient Cardiac Rehab Manual sheath removal per protocol Follow up with Dr. Olivarez Would consider high risk PCI of ostial LCX and POBA of ostial OM#1 and OM#2 if symptoms persist. Pt would need long 45 cm sheath. Successful Mynx closure of RFA. DESCRIPTION OF PROCEDURE The patient arrived to the procedure lab. The risks and benefits of the procedure as well as a full d escription of our services here and current unavailability of surgical backup were fully explained to the patient and/or their significant other prior to the catheterization. The Timeout was completed, verifying the correct patient and procedure. The patient's procedural site was prepped and draped in the usual fashion. Local anesthetic was given subcutaneously to right groin region with Lidocaine 2% Using a modified Seldinger technique,arterial access was obtained via the right femoral artery, a 4Fr sheath was inserted Left Coronary Artery selective angiography was performed in multiple views using a 4 Fr. JL5 catheter. Saphenous Vein graft to the Ramus selective angiography was performed in multi ple views using a 4 Fr. 3DRC catheter. Right Coronary Artery selective angiography was then performed in multiple views using a 4 Fr. 3DRC catheter. Saphenous Vein graft to the RPL selective angiography was performed in multiple views using a 4 Fr. 3DRC catheter. Left internal mammary artery graft to the LAD selective angiography was performed in multiple views using a 4 Fr. IM catheter. Le ft Ventriculography was performed in GUTHRIE projection using a 4 Fr. Pigtail catheter. LV to AO pullback pressures were then recorded.The images were reviewed and options discussed. A decision was then mad e to proceed with an Intervention, IVUS or other adjunct procedure. Arterial sheath was exchanged for a 6 Fr 45cm Sheath. EBU 3.75 Guide catheter was inserted and en gaged into the LCA. BMW Guide wire was advanced to the OM 1. BMW #2 Guide wire was advanced to the 2n d OM. 2.0x8 emerge Balloon catheter was advanced across lesion in the second obtuse marginal, proxima l. PTCA balloon inflated at 6 atms for 8 secs. Angiogram performed post balloon dilatation. zinger Gu austin wire was advanced to the Left main. runthrough Guide wire was advanced to the Left main. 2.25x12 synergy Drug Eluting stent was inserted. Drug Eluting stent was advanced across the lesion in the sec ond obtuse marginal, proximal The arterial sheath was pulled and a Mynx closure device was deployed for hemostasis INTERVENTION INFORMATION LESION SITE: 2nd OM (Proximal) Lesion Complexity: Non-High/Non-C, lesion at bifurcation: No, thrombus present: No, culprit lesion: Y es Pre Stenosis: 90 % Pre intervention MAURICIO flow: 2 PROCEDURE: Drug Eluting Stent with pre dilatation. Post Stenosis: 0 % Post intervention MAURICIO flow: 3 Lesion Devices: Medtronic 6 Fr EBU3.75 100cm Guide Catheter [place] .014 BMW [place] Straight 190cm William Sci EMERGE MR 2.00x08 BALLOON [place]ons .014 BMW [place] Straight 190cm Medtronic .014 Zinger medium wire 180cm straight Terumo .014 Runthrough Extra Floppy 180cm straight William Sci Synergy MR PHAN 2.25x12 COMPLICATIONS No Complications PROCEDURE MEDICATIONS Versed 1 mg IV Oxygen: 2 L/min via nasal cannula Baby Aspirin (81mg) 1 Tabs PO @ 03/21/2018 08:50:50 Heparin 6000 unit(s) IV 03/21/2018 10:04:58 Nitro 200 mcg IC 03/21/2018 10:13:15 Nitro 200 mcg IC 03/21/2018 10:13:15 IV Bolus: .9 NaCl 500 ml total 03/21/2018 10:56:27 SUMMARY OF HEMODYNAMIC DATA Time AIR REST ECG 08:59:06 AO 144/76 (104) SA 09:13:52 LV 158/72, 105 09:32:31 LV 151/4, 26 09:32:39 LV 159/3, 30 09:33:42 LVp 156/-1, 26 09:33:47 AOp 155/72 (105) 09:33:52 Signed By Scott Monique MD On 03/21/2018 11:10:50 Scott Monique MD
[2018-03-21] MEDS: 0.9% Normal Saline 1,000 ML 150 ML IV (11:15)
--- NOTE | 2018-03-21 11:27 | EKG12_ITS ---
Test Reason : AM EKG Blood Pressure : / mmHG Vent. Rate : 081 BPM Atrial Rate : 081 BPM P-R Int : 148 ms QRS Dur : 094 ms QT Int : 396 ms P-R-T Axes : 044 -33 055 degrees QTc Int : 460 ms Normal sinus rhythm Left axis deviation Inferior infarct , age undetermined Anterior infarct , age undetermined Abnormal ECG When compared with ECG of 20-MAR-2018 13:38, MANUAL COMPARISON REQUIRED, DATA IS UNCONFIRMED Confirmed by RAY REYNA, BATSHEVA ([id number]), web content editor RADHA FENG ([id number]) on 03/23/2018 3:05:49 PM Referred By: DR ZUÑIGA Confirmed By:BATSHEVA BELL MD
[2018-03-21 11:45] LABS: Bedside Glucose 159 mg/dL (70-110)
[2018-03-21] MEDS: Insulin Lispro 100 UNIT/ML INSULN.PEN SQ (12:29)
--- NOTE | 2018-03-21 12:47 | PCM.PN.HOSP ---
Patient Problems: Active and Suspected Problems NSTEMI (non-ST elevated myocardial infarction) (Acute) Subjective: Patient is a 67-year-old gentleman admitted with chest discomfort and assessment of acute non-STEMI was made treatment initiated per protocol admitted to monitored bed with consultation placed to cardiology. Patient underwent left heart catheterization on the morning of 03/21/2018 with PTCA/PHAN to his proximal OM 2 Objective: GENERAL: cooperative HEENT: Atraumatic; moist oral mucosa EYES; Anicteric, Normal Conjunctiva NECK; supple, normal thyroid, no distended JVD. RESPIRATORY: Diminished to auscultation bilaterally, CARDIOVASCULAR: Regular S1 S2, no audible murmurs GI: soft, non-tender, normoactive bowel sounds, : No Renal angle tenderness; EXTREMITIES: No edema, no clubbing, no cyanosis. MUSCULOSKELETAL: No Joint Tenderness; no muscle waisting NEURO: Awake; no lateralizing signs. SKIN: No Rash PSYCH; Normal affect Vitals/I&O's: Vital Signs Temp Pulse Resp BP Pulse Ox 98.2 F 70 18 154/76 H 98 03/21/18 11:15 03/21/18 11:30 03/21/18 11:30 03/21/18 11:30 03/21/18 11:30 Oxygen Flow Rate (L/min) 2 Oxygen Delivery Method Nasal Cannula Weight: 100.1 kg Body Mass Index (BMI) 31.6 Intake and Output for Last 24 Hours 03/19/18 03/20/18 03/21/18 23:59 23:59 23:59 Intake Total 665 / 665 299 / 299 Output Total 250 / 250 Balance 415 / 415 299 / 299 Laboratory Results 03/20/18 14:00: Troponin I 0.209 H 03/20/18 16:30: Troponin I 0.253 H 03/20/18 17:49: POC Glucose 330 H 03/20/18 21:11: POC Glucose 200 H 03/21/18 05:10: WBC 9.1, RBC 5.05, Hgb 13.6, Hct 42.3, MCV 83.8, MCH 26.9 L, MCHC 32.2, RDW 14.4, RDW Differential 44.2 H, Plt Count 174, MPV 11.6 03/21/18 05:10: Sodium 138, Potassium 4.4, Chloride 105, Carbon Dioxide 24.0, Anion Gap 9, BUN 24 H, Creatinine 1.11, Estim Creat Clear Calc 64.85, Est GFR (MDRD) Af Amer 84, Est GFR (MDRD) Non-Af 70, BUN/Creatinine Ratio 21.6 H, Glucose 138 H, Calcium 8.9, Triglycerides 617 H, Cholesterol 222 H, LDL Cholesterol TNP, VLDL Cholesterol TNP, HDL Cholesterol 20 L, TSH 2.87 03/21/18 05:10: PT 14.7, INR 1.2, APTT 41.2 H 03/21/18 06:50: POC Glucose 165 H 03/21/18 11:38: POC Glucose 159 H Current Medications Acetaminophen (Tylenol) 650 mg PO Q6H PRN PRN PRN Reason: Mild Pain (0-2/10) Amlodipine Besylate (Norvasc) 2.5 mg PO DAILY [facility] Aspirin (Aspirin, Baby) 81 mg PO QODAY@0800 [facility] Atropine Sulfate () 0.5 mg IV UD PRN PRN Reason: HR <50 bpm Benzonatate (Tessalon Perle) 100 mg PO TID PRN PRN PRN Reason: COUGH Carbidopa/Levodopa (Sinemet) 1 tablet PO QHS PRN PRN Reason: RESTLESSNESS Carvedilol (Coreg) 6.25 mg PO BID [facility] Clopidogrel Bisulfate (Plavix) 75 mg PO DAILY [facility] Last Admin: 03/21/18 05:49 Dose: 75 mg Dextrose (D50w Syringe) 0 gm IV X1 PRN; Protocol PRN Reason: Hypoglycemia Docusate Sodium (Colace) 100 mg PO BID [facility] Last Admin: 03/20/18 21:07 Dose: 100 mg Famotidine (Pepcid) 20 mg PO BID [facility] Last Admin: 03/20/18 21:07 Dose: 20 mg Fenofibrate (Tricor) 145 mg PO DAILY [facility] Fluticasone Propionate (Flonase Nasal Tamiment) 2 spray NASAL BID PRN PRN Reason: SINUS CONGESTION Furosemide (Lasix) 20 mg PO DAILY [facility] Glucagon () 1 mg IM .X1 PRN PRN Reason: Hypoglycemia Heparin Sodium (Beef Lung) (Heparin 500 Unit/5 Ml (100/Ml)) 500 unit IV UD PRN PRN Reason: HEPARIN FLUSH Hydromorphone HCl (Dilaudid Inj) 0.5 mg IV Q4H PRN PRN PRN Reason: SEVERE PAIN (6-10/10) Last Admin: 03/20/18 17:45 Dose: 0.5 mg Sodium Chloride () 1,000 mls @ 50 mls/hr IV .Q20H [facility] Last Admin: 03/20/18 21:09 Dose: 50 mls/hr Sodium Chloride () 1,000 mls @ 150 mls/hr IV .Q6H40M [facility] Stop: 03/21/18 18:06 Last Admin: 03/21/18 11:15 Dose: 150 mls/hr Nitroglycerin/Dextrose () 250 mls @ 3 mls/hr IV .[id number] [facility] Insulin Glargine (Lantus (Bkc)) 60 units SC BID [facility] Last Admin: 03/20/18 21:11 Dose: 60 units Insulin Human Lispro (Humalog Kwikpen (Bkc)) 20 unit SC DINNER [facility] Last Admin: 03/20/18 18:16 Dose: 20 units Insulin Human Lispro (Humalog Kwikpen (Bkc)) 24 unit SC BREAKFAST [facility] Last Admin: 03/21/18 09:35 Dose: Not Given Insulin Human Lispro (Humalog Kwikpen (Bkc)) 28 unit SC LUNCH [facility] Insulin Human Lispro (Humalog Kwikpen (Bkc)) 0 unit SQ ACHS [facility]; Protocol Last Admin: 03/21/18 12:29 Dose: 2 units Isosorbide Mononitrate (Imdur) 30 mg PO DAILY [facility] Labetalol HCl (Trandate) 5 mg IV X1 PRN PRN Reason: SBP > 160 PRIOR TO SHEATH PULL Lorazepam (Ativan) 1 mg PO Q6H PRN PRN PRN Reason: BACK SPASMS/ANXIETY Magnesium Hydroxide (Milk Of Magnesia) 30 ml PO DAILY PRN PRN Reason: Constipation Metoclopramide HCl (Reglan) 5 mg IV Q6 PRN PRN Reason: NAUSEA/VOMITING Morphine Sulfate () 2 mg IV Q4H PRN PRN PRN Reason: Mild back pain (0-2/10) Multivitamins (Multivitamin) 1 tablet PO DAILY@0800 [facility] Nitroglycerin (Nitrostat) 0.4 mg SUBLINGUAL Q5M PRN PRN Reason: CHEST PAIN Ondansetron HCl (Zofran) 8 mg PO TID PRN PRN Reason: nausea vomiting Pancrelipase (Creon Dr 12,000 Unit Capsule) 4 capsule PO TIDCM [facility] Last Admin: 03/21/18 09:35 Dose: Not Given Potassium Chloride (K-Dur) 20 meq PO DAILY@0800 [facility] Pregabalin (Lyrica) 150 mg PO Q8 [facility] Last Admin: 03/21/18 06:08 Dose: 150 mg Psyllium Hydrophilic Mucilloid (Metamucil) 1 packet PO DAILY PRN PRN PRN Reason: CONSTIPATION Pyridoxine HCl (Vitamin B-6) 100 mg PO DAILY@0800 [facility] Sodium Chloride () 5 - 15 ml IV UD PRN PRN Reason: SALINE FLUSH Last Admin: 03/21/18 01:50 Dose: 10 ml Sodium Chloride () 500 ml IV BOLUS PRN PRN Reason: VASO-VAGAL PROTOCOL Thiamine HCl (Vitamin B1) 100 mg PO DAILY@0800 [facility] Topiramate (Topamax) 150 mg PO QHS [facility] Last Admin: 03/20/18 21:07 Dose: 150 mg Trazodone HCl (Desyrel) 100 mg PO QHS PRN PRN Reason: SLEEP Medical Necessity - Tobacco Use Smoking Status: Never smoker Assessment/Plan All Active Problems NSTEMI (non-ST elevated myocardial infarction) (Acute) Chest pain (Acute) Pancreatitis (Resolved) Patient is a 67-year-old gentleman with multiple comorbidities including CAD status post CABG in August 2017 presented with exertional dyspnea as well as chest pain. Patient was found to have elevated troponin on admission and assessment of unstable angina made admitted to a monitored bed for subsequent management 1. Acute N STEMI/unstable angina: Patient admitted to a monitored bed treatment initiated per protocol consisting of therapeutic Lovenox, beta-blockers, AN inhibitors and aspirin. Patient is not on statin therapy due to reported allergy. An echo was ordered for left ventricular function assessment and consultation placed to Dr. Olivarez. Patient underwent left heart catheterization on the morning of 03/21/2018 with PTCA/PHAN to his proximal OM 2 2. CAD with CABG in August 2017 requisition was placed [place] [facility]. Diabetes mellitus type II: Placed on long acting insulin, Accu-Cheks a.c. and at bedtime and covered with sliding scale insulin 4. Persistent cough do suspect AN I induced cough plan is to switch to ARB prior to discharge 5. Dyslipidemia-patient is on gemfibrozil apparently allergic to statins, 6. GERD on PPI 7. Hypertension-blood pressure controlled, home medications continued with dose adjustment as needed 8. DVT prophylaxis patient is on therapeutic Lovenox Active Medications Acetaminophen (Tylenol) 650 mg PO Q6H PRN PRN PRN Reason: Mild Pain (0-2/10) Amlodipine Besylate (Norvasc) 2.5 mg PO DAILY [facility] Aspirin (Aspirin, Baby) 81 mg PO QODAY@0800 [facility] Atropine Sulfate () 0.5 mg IV UD PRN PRN Reason: HR <50 bpm Benzonatate (Tessalon Perle) 100 mg PO TID PRN PRN PRN Reason: COUGH Carbidopa/Levodopa (Sinemet) 1 tablet PO QHS PRN PRN Reason: RESTLESSNESS Carvedilol (Coreg) 6.25 mg PO BID [facility] Clopidogrel Bisulfate (Plavix) 75 mg PO DAILY [facility] Last Admin: 03/21/18 05:49 Dose: 75 mg Dextrose (D50w Syringe) 0 gm IV X1 PRN; Protocol PRN Reason: Hypoglycemia Docusate Sodium (Colace) 100 mg PO BID [facility] Last Admin: 03/20/18 21:07 Dose: 100 mg Famotidine (Pepcid) 20 mg PO BID [facility] Last Admin: 03/20/18 21:07 Dose: 20 mg Fenofibrate (Tricor) 145 mg PO DAILY [facility] Fluticasone Propionate (Flonase Nasal Tamiment) 2 spray NASAL BID PRN PRN Reason: SINUS CONGESTION Furosemide (Lasix) 20 mg PO DAILY [facility] Glucagon () 1 mg IM .X1 PRN PRN Reason: Hypoglycemia Heparin Sodium (Beef Lung) (Heparin 500 Unit/5 Ml (100/Ml)) 500 unit IV UD PRN PRN Reason: HEPARIN FLUSH Hydromorphone HCl (Dilaudid Inj) 0.5 mg IV Q4H PRN PRN PRN Reason: SEVERE PAIN (6-10/10) Last Admin: 03/20/18 17:45 Dose: 0.5 mg Sodium Chloride () 1,000 mls @ 50 mls/hr IV .Q20H [facility] Last Admin: 03/20/18 21:09 Dose: 50 mls/hr Sodium Chloride () 1,000 mls @ 150 mls/hr IV .Q6H40M [facility] Stop: 03/21/18 18:06 Last Admin: 03/21/18 11:15 Dose: 150 mls/hr Nitroglycerin/Dextrose () 250 mls @ 3 mls/hr IV .[id number] [facility] Insulin Glargine (Lantus (Bkc)) 60 units SC BID [facility] Last Admin: 03/20/18 21:11 Dose: 60 units Insulin Human Lispro (Humalog Kwikpen (Bkc)) 20 unit SC DINNER [facility] Last Admin: 03/20/18 18:16 Dose: 20 units Insulin Human Lispro (Humalog Kwikpen (Bkc)) 24 unit SC BREAKFAST [facility] Last Admin: 03/21/18 09:35 Dose: Not Given Insulin Human Lispro (Humalog Kwikpen (Bkc)) 28 unit SC LUNCH [facility] Insulin Human Lispro (Humalog Kwikpen (Bkc)) 0 unit SQ ACHS [facility]; Protocol Last Admin: 03/21/18 12:29 Dose: 2 units Isosorbide Mononitrate (Imdur) 30 mg PO DAILY [facility] Labetalol HCl (Trandate) 5 mg IV X1 PRN PRN Reason: SBP > 160 PRIOR TO SHEATH PULL Lorazepam (Ativan) 1 mg PO Q6H PRN PRN PRN Reason: BACK SPASMS/ANXIETY Magnesium Hydroxide (Milk Of Magnesia) 30 ml PO DAILY PRN PRN Reason: Constipation Metoclopramide HCl (Reglan) 5 mg IV Q6 PRN PRN Reason: NAUSEA/VOMITING Morphine Sulfate () 2 mg IV Q4H PRN PRN PRN Reason: Mild back pain (0-2/10) Multivitamins (Multivitamin) 1 tablet PO DAILY@0800 [facility] Nitroglycerin (Nitrostat) 0.4 mg SUBLINGUAL Q5M PRN PRN Reason: CHEST PAIN Ondansetron HCl (Zofran) 8 mg PO TID PRN PRN Reason: nausea vomiting Pancrelipase (Creon Dr 12,000 Unit Capsule) 4 capsule PO TIDCM [facility] Last Admin: 03/21/18 09:35 Dose: Not Given Potassium Chloride (K-Dur) 20 meq PO DAILY@0800 [facility] Pregabalin (Lyrica) 150 mg PO Q8 [facility] Last Admin: 03/21/18 06:08 Dose: 150 mg Psyllium Hydrophilic Mucilloid (Metamucil) 1 packet PO DAILY PRN PRN PRN Reason: CONSTIPATION Pyridoxine HCl (Vitamin B-6) 100 mg PO DAILY@0800 [facility] Sodium Chloride () 5 - 15 ml IV UD PRN PRN Reason: SALINE FLUSH Last Admin: 03/21/18 01:50 Dose: 10 ml Sodium Chloride () 500 ml IV BOLUS PRN PRN Reason: VASO-VAGAL PROTOCOL Thiamine HCl (Vitamin B1) 100 mg PO DAILY@0800 [facility] Topiramate (Topamax) 150 mg PO QHS [facility] Last Admin: 03/20/18 21:07 Dose: 150 mg Trazodone HCl (Desyrel) 100 mg PO QHS PRN PRN Reason: SLEEP Clinical Impression(s) from Imaging Studies Chest X-Ray 03/20/18 10:45 IMPRESSION: Cardiomegaly. No acute abnormality is seen. Electronically Signed: Checo Ball MD at 11:14 EST Tel [phone], Service support , Chest CTA 03/20/18 11:06 IMPRESSION: Normal CTA chest examination, without a demonstrated pulmonary embolism or arterial dissection. Electronically Signed: Checo Ball MD at 12:46 EST Tel [phone], Service support , Code Visit Inpatient E&M: [id number] [facility] Hosp L3
[2018-03-21] MEDS: Pyridoxine HCl 100 MG Tablet PO (12:59)
[2018-03-21] MEDS: Thiamine Hydrochloride 100 MG Tablet PO (12:59)
[2018-03-21] MEDS: Multivitamins,Therapeutic Tablet 1 TABLET PO (13:00)
[2018-03-21] MEDS: Famotidine 20 MG Tablet PO ×2 (13:00→21:15)
[2018-03-21] MEDS: Furosemide 20 MG Tablet PO (13:04)
[2018-03-21] MEDS: amLODIPine 2.5 MG Tablet PO (13:06)
[2018-03-21] MEDS: Insulin Lispro 100 UNIT/ML INSULN.PEN 28 UNIT SC (13:07)
--- NOTE | 2018-03-21 13:36 | CRPHASE1 ---
Patient Data/Charges Health Aid:: Scott Monique Phase I Charge:: Level I - Education Risk Factors/Lifestyle Smoking Status: Never smoker Hx Hypertension: Yes - ON MEDS SINCE AUGUST Hx Diabetes Mellitus Type 2: Yes - ON INSULIN Height: 1.78 m Weight:: 100.1 kg BMI: 31.6 ETOH: No Caffeine: Yes Substance Abuse: No Family History: Hypertension Laboratory Values: Cardiac Rehab Phase I Labs Triglycerides 617 mg/dL (-199) H 03/21/18 05:10 Cholesterol 222 mg/dL (200) H 03/21/18 05:10 LDL Cholesterol TNP 03/21/18 05:10 HDL Cholesterol 20 mg/dL (40-) L 03/21/18 05:10 Phase I Education Given On:: [place], Nutrition, Antiplatelet medication, Diabetes - Type II Issues Affecting Care:: None Hospital Course Pain Description: Tightness Cardiac Cath Date:: 03/21/18 Medical/Surgical History [place]:: No Diabetes Type II:: Yes - DUE TO [employer]ENT [employer]ANGE DIABETES 19 YRS Hypertension:: Yes CABG: Yes Discharge/Home/Social Eval Discharge Disposition: Home
--- NOTE | 2018-03-21 13:41 | CRPHASE1_ITS ---
Patient Data/Charges Desk Assistant:: Scott Monique Phase I Charge:: Level I - Education Risk Factors/Lifestyle Smoking Status: Never smoker Hx Hypertension: Yes - ON MEDS SINCE AUGUST Hx Diabetes Mellitus Type 2: Yes - ON INSULIN Height: 1.78 m Weight:: 100.1 kg BMI: 31.6 ETOH: No Caffeine: Yes Substance Abuse: No Family History: Hypertension Laboratory Values: Cardiac Rehab Phase I Labs Triglycerides 617 mg/dL (-199) H 03/21/18 05:10 Cholesterol 222 mg/dL (200) H 03/21/18 05:10 LDL Cholesterol TNP 03/21/18 05:10 HDL Cholesterol 20 mg/dL (40-) L 03/21/18 05:10 Phase I Education Given On:: [place], Nutrition, Antiplatelet medication, Diabetes - Type II Issues Affecting Care:: None Hospital Course Pain Description: Tightness Cardiac Cath Date:: 03/21/18 Medical/Surgical History [place]:: No Diabetes Type II:: Yes - DUE TO [employer]ENT [employer] DIABETES 19 YRS Hypertension:: Yes CABG: Yes Discharge/Home/Social Eval Discharge Disposition: Home
--- NOTE | 2018-03-21 13:41 | CRPH1.INSTRU ---
General Education CAD and cardiac anatomy and function:: Patient communicates acknowledgment Explanation of diagnoses and procedures:: Patient communicates acknowledgment Sign/Symptoms of NE:: Patient communicates acknowledgment Antiplatelet therapy: Patient communicates acknowledgment Proper use of NTG-SL: Patient communicates acknowledgment Emergency procedures and activation of EMS: Patient communicates acknowledgment Compliance of all prescribed medications: Patient communicates acknowledgment Smoking Patient Nicotine/Smoking Risk Factors Are:: Never smoked Dyslipidemia Patient Dyslipidemia Risk Factors Are:: Total Cholesterol - 222, Triglycerides - 617, HDL, LDL Recommendations Include:: Lipid profile provided Dyslipidemia Response Code:: Patient communicates acknowledgment Overweight/Obesity Patient Overweight/Obesity Risk Factors Are:: Overweight = 26-29 Overweight/Obesity:: Patient communicates acknowledgment Hypertension Recommendations Include:: Maintain BP <130/85, BP <130/80 if diabetic, Decrease/maintain normal body weight Hypertension:: Patient communicates acknowledgment Heart Disease Patient Heart Disease Risk Factors Are:: Previous cardiac event Heart Disease Response Code:: Patient communicates acknowledgment Diabetes Patient Diabetes Risk Factors Are:: Elevated blood sugars Recommendations Include:: Maintain fasting blood sugars 70-110 md/dL, Maintain HgbA1c of 6% or less, Diabetic dietary guidelines Diabetes:: Patient communicates acknowledgment Metabolic Syndrome Patient Metabolic Syndrome Risk Factors Are [3 of 5]:: Fasting blood sugar > 100 mg/dL, Waist circumference > 35 [female] or 40 [male], High triglyceride >150, Hypertension Metabolic Syndrome Response Code:: Patient communicates acknowledgment Sedentary Sedentary Response Code:: Patient communicates acknowledgment Stress Patient Stress Risk Factors Are:: Patient denies stress as a risk factor
[2018-03-21 15:21] LABS: ACT Activated Clotting Time 175 sec (74-137)
[2018-03-21] MEDS: Benzonatate 100 MG Capsule PO (15:35)
[2018-03-21 16:16] LABS: Bedside Glucose 144 mg/dL (70-110)
[2018-03-21] MEDS: Insulin Lispro 100 UNIT/ML INSULN.PEN 20 UNIT SC (17:45)
--- NOTE | 2018-03-21 18:31 | CL.D_ITS ---
Patient Name: CAMDEN HOLDER Study Date: 03/21/2018 Performing: Wiliam Olivarez MD Ht: 70.08 inches 178 cm : 1950 Wt: 220.46 lbs 100 kg Age: 67 Gender: male BSA: 2.18 PROCEDURE(S) PERFORMED [id number]/COR/LV/CABG [id number] W OR WO PTCA, SINGLE CORONARY ARTERY CLINICAL PROFILE AND INDICATIONS Patient presents with NSTEMI for urgent cardiac cath Indications: Suspected CAD, ACS > 24 hrs, Worsening Angina, Stable Known CAD Heart Failure: None Stress/Imaging Stress/Image Study Performed: No Stress/Image Study Performed: No Angina Classification Anginal Classification w/in 2 Weeks: CCS IV CAD Presentations: Non-STEMI. Non-STEMI. Symptom onset Date/Time: 03/20/2018 Time Not Available Comorbidities/Risk Factors: Hypertension Dyslipidemia Family History of Premature CAD Prior CABG Diabetes Mellitus: Diabetes Therapy: Insulin CONCLUSIONS Elevated Left Ventricular End Diastolic Pressure Segmented LV systolic dysfunction- Mild LVEF: by LV gram 50 % [place] Multivessel CAD GARCIA to LAD: patent SVG to DX1: patent SVG to RCA: patent RECOMMENDATIONS Risk factor modification Medical therapy Referred for immediate PCI DESCRIPTION OF PROCEDURE The patient arrived to the procedure lab. The risks and benefits of the procedure as well as a full d escription of our services here and current unavailability of surgical backup were fully explained to the patient and/or their significant other prior to the catheterization. The Timeout was completed, verifying the correct patient and procedure. The patient's procedural site was prepped and draped in the usual fashion. Local anesthetic was given subcutaneously to right groin region with Lidocaine 2%. Using a modified Seldinger technique, arterial access was obtained via the right femoral artery, a 4 Fr sheath was inserted Left Coronary Artery selective angiography was performed in multiple views us ing a 4 Fr. JL5 catheter. Saphenous Vein graft to the Ramus selective angiography was performed in mu ltiple views using a 4 Fr. 3DRC catheter. Right Coronary Artery selective angiography was then perfor med in multiple views using a 4 Fr. 3DRC catheter. Saphenous Vein graft to the RPL selective angiography was performed in multiple views using a 4 Fr. 3DRC catheter. Left internal mamm wilian artery graft to the LAD selective angiography was performed in multiple views using a 4 Fr. IM ca theter. Left Ventriculography was performed in GUTHRIE projection using a 4 Fr. Pigtail catheter. LV to A O pullback pressures were then recorded.The arterial sheath was pulled and a Mynx closure device was deployed for hemostasis CORONARY ANGIOGRAPHY DOMINANCE: Right Dominant LEFT HEART ASSESSMENT Left Ventricular Ejection Fraction: by LV Gram 50 % Inferior Mid Hypokinesis. Apical Hypokinesis Elevated Left Ventricular End Diastolic Pressure LVEDP: 26 mmHg LEFT MAIN: Angiographically normal LEFT ANTERIOR DECENDING ARTERY: PROX LAD: Mild calcification, Diffuse: 25 % Stenosis MID LAD: is occluded, Fills from the GARCIA graft and demonstrates diffuse 25 - 50 % stenosis distal to the graft attachment DIAGONAL 1: Mid - Fills from the SVG graft with no angiographicall appearing significant stenosis dis ravi to the graft attachment CIRCUMFLEX ARTERY: OSTIAL CIRC: is subtotally occluded OM 1: Ostial - is subtotally occluded followed by proximal subtotal occlusion RAMUS: Ostial: is subtotally occluded RIGHT CORONARY ARTERY: PROX RCA: Irregular: 75 % Stenosis MID RCA: Mild luminal irregularities DISTAL RCA: Fills from the SVG graft RT PDA: Proximal - 75 % Stenosis RIGHT AV SEGMENT: 75 % Stenosis GRAFTS: GARCIA graft to the Mid LAD is patent Saphenous Vein graft to the 1st Diagonal is patent Saphenous Vein graft to the RCA is patent VALVE FINDINGS: Normal Aortic Valve function Normal Mitral Valve function AORTIC ROOT: Angiographically normal COMPLICATIONS No Complications PROCEDURE MEDICATIONS Versed 1 mg IV Oxygen: 2 L/min via nasal cannula Baby Aspirin (81mg) 1 Tabs PO @ 03/21/2018 08:50:50 Heparin 6000 unit(s) IV 03/21/2018 10:04:58 Nitro 200 mcg IC 03/21/2018 10:13:15 Nitro 200 mcg IC 03/21/2018 10:13:15 IV Bolus: .9 NaCl 500 ml total 03/21/2018 10:56:27 SUMMARY OF HEMODYNAMIC DATA Time AIR REST ECG 08:59:06 AO 144/76 (104) SA 09:13:52 LV 158/72, 105 09:32:31 LV 151/4, 26 09:32:39 LV 159/3, 30 09:33:42 LVp 156/-1, 26 09:33:47 AOp 155/72 (105) 09:33:52 Signed By Wiliam Olivarez MD On 03/21/2018 18:30:20 Wiliam Olivarez MD
--- NOTE | 2018-03-21 18:34 | PCM.PN.CARD ---
Subjectve: The patient was evaluated earlier this day and underwent diagnostic cardiac catheterization earlier this day. Following the procedure he appeared to be without any acute adverse cardiovascular events. Objective: Vital Signs Temp Pulse Resp BP Pulse Ox 98.7 F 78 26 H 104/62 95 03/21/18 16:00 03/21/18 17:00 03/21/18 17:00 03/21/18 17:00 03/21/18 17:00 Oxygen Flow Rate (L/min) 2 Oxygen Delivery Method Nasal Cannula Weight: 220 lb 10.923 oz Body Mass Index (BMI) 31.6 Intake and Output for Last 24 Hours 03/19/18 03/20/18 03/21/18 23:59 23:59 23:59 Intake Total 665 / 665 399 / 399 Output Total 250 / 250 750 / 750 Balance 415 / 415 -351 / -351 General: Awake, Alert, Oriented x 3, Cooperative, No Acute Distress HEENT: Atraumatic, Normocephalic, PERRL, EOMI, Sclera Non Icteric Oral: Moist Mucosa Neck: Supple, Good ROM, No JVD Lungs: Clear to auscultation Cardiovascular: Regular Rhythm, Normal S1, Normal S2 Vascular: Normal Femoral Pulses Abdomen: Bowel Sounds Present, Soft, Non Tender Extremities: No Cyanosis, No Clubbing, No edema Lymphatic: No Lymph Node Enlargement Neurological: No Focal Motor or Sensory Deficit Psych/Mental Status: Appropriate, Normal Affect 03/21/18 05:10: WBC 9.1, RBC 5.05, Hgb 13.6, Hct 42.3, MCV 83.8, MCH 26.9 L, MCHC 32.2, RDW 14.4, RDW Differential 44.2 H, Plt Count 174, MPV 11.6 03/21/18 05:10: Sodium 138, Potassium 4.4, Chloride 105, Carbon Dioxide 24.0, Anion Gap 9, BUN 24 H, Creatinine 1.11, Est GFR (MDRD) Af Amer 84, Est GFR (MDRD) Non-Af 70, BUN/Creatinine Ratio 21.6 H, Glucose 138 H, Calcium 8.9, Triglycerides 617 H, Cholesterol 222 H, LDL Cholesterol TNP, VLDL Cholesterol TNP, HDL Cholesterol 20 L 03/21/18 05:10: PT 14.7, INR 1.2, APTT 41.2 H Rhythm: Sinus rhythm ECHO: Preliminary report: Left ventricle: Regional wall motion abnormalities: LVEF approximately 45%: Please see official report Cardiac Cath: Preliminary report: Left ventricle: Regional wall motion abnormalities: LVEF approximately 50%: [place] multivessel CAD: GARCIA to LAD patent: SVG to diagonal branch patent: SVG to RCA patent PCI: Preliminary report: PCI to the high OM Medical Necessity - Tobacco Use Smoking Status: Never smoker Assessment/Plan 1. Non-ST segment elevation [place] The patient continues medical management. He is now status post diagnostic cardiac catheterization. He did receive PCI to what appears to be a high OM vessel. 2. CAD status post CABG The patient does have [place] multivessel CAD. His 3 grafts are patent with a GARCIA to the LAD, and SVG appearing to go to a diagonal branch, and an SVG to the distal RCA system. He has [place] vessel disease involving the ostial portions of the LCx, OM, and intermediate ramus. He was able to undergo PCI of the OM vessel. At the present time he will continue medical management with adjustment as needed. 3. Hyperlipidemia The patient states he is intolerant to statins and fish oil. His triglycerides are markedly elevated. His total cholesterol is elevated. He will be placed on medical management with fenofibrate. 4. Hypertension Will continue medical therapy without AN inhibitor at this time. Hopefully if his cough is AN inhibitor related it will improve. 5. Diabetes mellitus He will continue under the care of internal medicine. 6. Carotid artery disease He does have bilateral carotid artery bruits. He has had a carotid artery duplex study performed at the [facility]. Per the reports available for review the right carotid artery was reported as mild in the left carotid artery was reported as moderate. He will need continued risk factor evaluation care as deemed appropriate. Comment: The patient's case was discussed and reviewed with patient and his family members present. This note was generated with [employer] software. It may contain incorrect words, spelling, and punctuation that were not noted in checking the note before signing.
--- NOTE | 2018-03-21 18:38 | PN.CARD_ITS ---
Subjectve: The patient was evaluated earlier this day and underwent diagnostic cardiac catheterization earlier this day. Following the procedure he appeared to be without any acute adverse cardiovascular events. Objective: Vital Signs Temp Pulse Resp BP Pulse Ox 98.7 F 78 26 H 104/62 95 03/21/18 16:00 03/21/18 17:00 03/21/18 17:00 03/21/18 17:00 03/21/18 17:00 Oxygen Flow Rate (L/min) 2 Oxygen Delivery Method Nasal Cannula Weight: 220 lb 10.923 oz Body Mass Index (BMI) 31.6 Intake and Output for Last 24 Hours 03/19/18 03/20/18 03/21/18 23:59 23:59 23:59 Intake Total 665 / 665 399 / 399 Output Total 250 / 250 750 / 750 Balance 415 / 415 -351 / -351 General: Awake, Alert, Oriented x 3, Cooperative, No Acute Distress HEENT: Atraumatic, Normocephalic, PERRL, EOMI, Sclera Non Icteric Oral: Moist Mucosa Neck: Supple, Good ROM, No JVD Lungs: Clear to auscultation Cardiovascular: Regular Rhythm, Normal S1, Normal S2 Vascular: Normal Femoral Pulses Abdomen: Bowel Sounds Present, Soft, Non Tender Extremities: No Cyanosis, No Clubbing, No edema Lymphatic: No Lymph Node Enlargement Neurological: No Focal Motor or Sensory Deficit Psych/Mental Status: Appropriate, Normal Affect 03/21/18 05:10: WBC 9.1, RBC 5.05, Hgb 13.6, Hct 42.3, MCV 83.8, MCH 26.9 L, MCHC 32.2, RDW 14.4, RDW Differential 44.2 H, Plt Count 174, MPV 11.6 03/21/18 05:10: Sodium 138, Potassium 4.4, Chloride 105, Carbon Dioxide 24.0, Anion Gap 9, BUN 24 H, Creatinine 1.11, Est GFR (MDRD) Af Amer 84, Est GFR (MDRD) Non-Af 70, BUN/Creatinine Ratio 21.6 H, Glucose 138 H, Calcium 8.9, Triglycerides 617 H, Cholesterol 222 H, LDL Cholesterol TNP, VLDL Cholesterol TNP, HDL Cholesterol 20 L 03/21/18 05:10: PT 14.7, INR 1.2, APTT 41.2 H Rhythm: Sinus rhythm ECHO: Preliminary report: Left ventricle: Regional wall motion abnormalities: LVEF approximately 45%: Please see official report Cardiac Cath: Preliminary report: Left ventricle: Regional wall motion abnormalities: LVEF approximately 50%: [place] multivessel CAD: GARCIA to LAD patent: SVG to diagonal branch patent: SVG to RCA patent PCI: Preliminary report: PCI to the high OM Medical Necessity - Tobacco Use Smoking Status: Never smoker Assessment/Plan 1. Non-ST segment elevation [place] The patient continues medical management. He is now status post diagnostic cardiac catheterization. He did receive PCI to what appears to be a high OM vessel. 2. CAD status post CABG The patient does have [place] multivessel CAD. His 3 grafts are patent with a GARCIA to the LAD, and SVG appearing to go to a diagonal branch, and an SVG to the distal RCA system. He has [place] vessel disease involving the ostial portions of the LCx, OM, and intermediate ramus. He was able to undergo PCI of the OM vessel. At the present time he will continue medical management with adjustment as needed. 3. Hyperlipidemia The patient states he is intolerant to statins and fish oil. His triglycerides are markedly elevated. His total cholesterol is elevated. He will be placed on medical management with fenofibrate. 4. Hypertension Will continue medical therapy without AN inhibitor at this time. Hopefully if his cough is AN inhibitor related it will improve. 5. Diabetes mellitus He will continue under the care of internal medicine. 6. Carotid artery disease He does have bilateral carotid artery bruits. He has had a carotid artery duplex study performed at the [facility]. Per the reports available for review the right carotid artery was reported as mild in the left carotid artery was reported as moderate. He will need continued risk factor evaluation care as deemed appropriate. Comment: The patient's case was discussed and reviewed with patient and his family members present. This note was generated with [employer] software. It may contain incorrect words, spelling, and punctuation that were not noted in checking the note before signing.
[2018-03-21] MEDS: traZODone 100 MG Tablet PO (21:15)
[2018-03-21] MEDS: Docusate Sodium 100 MG Capsule PO (21:15)
[2018-03-21] MEDS: Carvedilol 6.25 MG Tablet PO (21:15)
[2018-03-21] MEDS: Topiramate 50 MG Tablet 150 MG PO (21:15)
[2018-03-21 21:36] LABS: Bedside Glucose 144 mg/dL (70-110)
[2018-03-21] MEDS: LORazepam 1 MG Tablet PO (23:04)
[2018-03-22] VITALS (30 sets, daily range): BP systolic 62–167; BP diastolic 34–93; PULSE 67–102; RESP 12–27; TEMP 36.3–37.2; O2SAT 92–98
[2018-03-22] MEDS: 0.9% NaCl Peripheral Flush Adult/Peds IV (04:09)
[2018-03-22 04:20] LABS: Hemoglobin 12.7 g/dl (13.0-16.5); Mean Corp Hgb Conc 32.6 g/gl (32-36); Mean Corpuscular Hgb 27.3 pg (27.0-32.0); Mean Corpuscular Volume 83.9 fL (80-94); Mean Platelet Vol. 11.4 fl (6.2-12.0); Platelet Count 164 K/mm3 (150-450); RBC Distribution Width CV 14.7 % (11.6-14.6); RBC Distribution Width SD 44.1 fl (35.1-43.9); Red Blood Count 4.65 M/mm3 (4.6-6.2); Scan Indicated on CBC? Y/N NO; White Blood Count 9.1 K/mm3 (4.4-11.0)
[2018-03-22 04:40] LABS: BUN 28 mg/dL (7-18); Creatinine, Serum 1.39 mg/dL (0.70-1.30); Estimated Creatinine Clearance 51.79 ml/min; Glucose 147 mg/dL (74-106)
[2018-03-22 04:41] LABS: Anion Gap 10 (5-15); BUN/Creat Ratio 20.1 RATIO (10-20); Calcium,Total 8.8 mg/dL (8.5-10.1); Chloride 106 mmol/L (98-107); Cholesterol 205 mg/dL (200); EST Glomerular Filtration Rate 54 mL/min (>60); Est Glom Filt Rate - Afr Amer 65 mL/min (>60); High Density Lipoprotein 19 mg/dL; Potassium 4.3 mmol/L (3.5-5.1); Sodium Level 137 mmol/L (136-145); Triglycerides 638 mg/dL
[2018-03-22] MEDS: Pregabalin 50 MG Capsule 150 MG PO (06:04)
[2018-03-22 06:11] LABS: Bedside Glucose 170 mg/dL (70-110)
[2018-03-22] MEDS: Aspirin 81 MG TAB.CHEW PO (08:16)
[2018-03-22] MEDS: Insulin Lispro 100 UNIT/ML INSULN.PEN SQ ×2 (08:17→11:42)
[2018-03-22] MEDS: Insulin Lispro 100 UNIT/ML INSULN.PEN 24 UNIT SC (08:18)
[2018-03-22] MEDS: Multivitamins,Therapeutic Tablet 1 TABLET PO (08:19)
[2018-03-22] MEDS: Thiamine Hydrochloride 100 MG Tablet PO (08:19)
[2018-03-22] MEDS: Docusate Sodium 100 MG Capsule PO (08:20)
[2018-03-22] MEDS: Pyridoxine HCl 100 MG Tablet PO (08:20)
[2018-03-22 08:26] LABS: Bedside Glucose 167 mg/dL (70-110)
--- NOTE | 2018-03-22 10:00 | EKG12_ITS ---
Test Reason : AM EKG Blood Pressure : / mmHG Vent. Rate : 083 BPM Atrial Rate : 083 BPM P-R Int : 154 ms QRS Dur : 100 ms QT Int : 376 ms P-R-T Axes : 045 -34 063 degrees QTc Int : 441 ms Normal sinus rhythm Left axis deviation Inferior infarct , age undetermined Anterolateral infarct , age undetermined Abnormal ECG When compared with ECG of 21-MAR-2018 05:57, MANUAL COMPARISON REQUIRED, DATA IS UNCONFIRMED Confirmed by RAY REYNA, BATSHEVA ([id number]), magazine editor RADHA FENG ([id number]) on 03/23/2018 3:16:35 PM Referred By: LULY Confirmed By:BATSHEVA BELL MD
--- NOTE | 2018-03-22 10:06 | PCM.PN.CARD ---
Subjectve: Patient seen and examined, no 24-hour events. No chest pain symptoms. Telemetry showed normal sinus rhythm with ventricular bigeminy on occasion. EKG shows normal sinus rhythm with old anterior wall myocardial infarction, no acute changes. Right groin is clean/dry/intact. Hemoglobin and creatinine are within nominal limits. Objective: Vital Signs Temp Pulse Resp BP Pulse Ox 98.7 F 85 16 112/93 H 95 03/22/18 08:00 03/22/18 08:00 03/22/18 08:00 03/22/18 08:00 03/22/18 08:00 Oxygen Flow Rate (L/min) 2 Oxygen Delivery Method Room Air Weight: 220 lb 10.923 oz Body Mass Index (BMI) 31.6 Intake and Output for Last 24 Hours 03/20/18 03/21/18 03/22/18 23:59 23:59 23:59 Intake Total 665 / 665 879 / 879 120 / 120 Output Total 250 / 250 1310 / 1310 120 / 120 Balance 415 / 415 -431 / -431 0 / 0 General: Awake, Alert, Oriented x 3 HEENT: PERRL, EOMI, Sclera Non Icteric Neck: Supple, Good ROM, No Lymph Node Enlargement Lungs: Clear to auscultation Cardiovascular: Regular Rhythm, Normal S1, Normal S2, No Murmurs, No Rubs, No Gallops Vascular: No Carotid Bruits, Normal Femoral Pulses, Normal Radial Pulses, Normal Dorsalis Pedal Pulse, Normal Posterior Tibial Pulses Abdomen: Bowel Sounds Present, Soft, Non Tender, No HSM, No Organomegaly Extremities: No Cyanosis, No Clubbing, No edema Neurological: No Focal Motor or Sensory Deficit 03/22/18 04:15: Sodium 137, Potassium 4.3, Chloride 106, Carbon Dioxide 21.0, Anion Gap 10, BUN 28 H, Creatinine 1.39 H, Est GFR (MDRD) Af Amer 65, Est GFR (MDRD) Non-Af 54 L, BUN/Creatinine Ratio 20.1 H, Glucose 147 H, Calcium 8.8, Triglycerides 638 H, Cholesterol 205 H, LDL Cholesterol TNP, VLDL Cholesterol TNP, HDL Cholesterol 19 L 03/22/18 04:15: WBC 9.1, RBC 4.65, Hgb 12.7 L, Hct 39.0 L, MCV 83.9, MCH 27.3, MCHC 32.6, RDW 14.7 H, RDW Differential 44.1 H, Plt Count 164, MPV 11.4 Rhythm: EKG: ECHO: Stress Test: Cardiac Cath: PCI: CT Surgery: Holter monitor: EPS: PPM: CXR: Chest CT Scan: Medical Necessity - Tobacco Use Smoking Status: Never smoker Assessment/Plan 1. Coronary artery disease: Patient underwent angioplasty and drug-eluting stenting to his proximal OM #2 yesterday. We were unable to traverse his left circumflex due to tortuosity and plaque burden. The patient had no chest pain overnight, and his right groin is clean/dry/intact. At this point I would hold off on further intervention of his left circumflex unless or until the patient has recurrent exertional anginal symptoms. I do not believe repeat stress testing would be beneficial as his vascular burden in this area is quite small and may not show up on a stress test. Should the patient have recurrent symptoms I would recommend repeat angioplasty of his proximal left circumflex. We were unable to complete his revascularization due to excessive dye load and radiation exposure yesterday. If however the patient remained symptom-free, would not recommend recurrent intervention at this time. Recommend lifelong aspirin and Plavix going forward. In the meantime we will continue his antihypertensive medications as outlined in the MRF. He will follow-up in our office in 2 weeks time, followed by cardiac rehab if indicated. 2. Hyperlipidemia: Continue gemfibrozil therapy. Repeat lipid profile after cardiac rehab. 3. Patient may be discharged home and follow-up with Dr. Olivarez going forward. Code Visit Inpatient E&M: 03391 Subs Hosp L2
[2018-03-22] MEDS: Isosorbide Mononitrate 30 MG Tablet PO (10:15)
[2018-03-22] MEDS: Famotidine 20 MG Tablet PO (10:15)
[2018-03-22] MEDS: Clopidogrel Bisulfate 75 MG Tablet PO (10:15)
[2018-03-22] MEDS: Carvedilol 6.25 MG Tablet PO (10:15)
[2018-03-22] MEDS: Furosemide 20 MG Tablet PO (10:15)
[2018-03-22] MEDS: Fenofibrate 145 MG Tablet PO (10:15)
[2018-03-22] MEDS: amLODIPine 2.5 MG Tablet PO (10:15)
--- NOTE | 2018-03-22 10:40 | CASEMGMT ---
NEISHA LEMONS INITIAL ASSESSMENT D/C PLAN: Home Face to Face with patient for initial transition planning/care coordination assessment. NEISHA LEMONS introduced self and role at [facility]. Care providers, pharmacy, and demographics verified. PCP: Dr Joseph Huffman @ [facility] Specialists: Dr Nielsen @ [facility] (Floor Broker) Preferred Pharmacy: [facility] Insurance: [facility] (100% Service Connected), Aetna [facility] Prescription Benefit: Yes Living Will/HPOA: Has both LW and HCPOA who is his , Julia. Copies not found in e-chart. Asked pt if he could have these brought in to hospital to have them scanned in to e-chart. LNOK: Living Arrangements: Lives with , dtr, and SABRINA. Denies problems/concerns with stairs. Independent with ADL's. Transportation: Pt drives. able to assist with transportation if he would need. DME: Uses a cane sometimes, otherwise, states no other DME use. Denies needs. HHC/SNF. Has never been to a SNF. States has never used HHC, denies needs, and no needs identified. Pt wishes to return home. Denies concerns or needs on discharge. Informed if he would need anything or have any questions or concerns to have staff notify CM. Pt voices understanding. Pt states he does not drink ETOH or smoke. Plan is for pt to be discharged home on ASA and Plavix post PCI. CM to follow for any further discharge
[2018-03-22] MEDS: Insulin Lispro 100 UNIT/ML INSULN.PEN 28 UNIT SC (11:41)
[2018-03-22 11:51] LABS: Bedside Glucose 231 mg/dL (70-110)
--- NOTE | 2018-03-22 12:00 | CASEMGMT ---
Addendum entered by Sheri Cee 03/22/18 13:46: Discharge order is in. Call placed to Mariela @ [phone], extension [phone] and she was informed of this. Discharge instructions and summary faxed to [facility] @ [phone]. Original Note: NEISHA LEMONS NOTE: Call placed to [facility]. Spoke with Mariela. She was made aware anticipated that pt will discharge today. She stated transfer declination form does not need faxed if pt does d/c today. She asked for Discharge information be faxed to her if pt is discharged and to notify her of pt's discharge. Marianela GUTIERREZ RN CM
--- NOTE | 2018-03-22 12:52 | DCINST_ITS ---
- Discharge Diagnoses Current Active Problems: Current Active and Chronic Problems Hx of CABG (Chronic) NSTEMI (non-ST elevated myocardial infarction) (Acute) CAD (coronary artery disease) (Chronic) HLD (hyperlipidemia) (Chronic) Carotid artery disease (Chronic) You will use the following diet at home:: Cardiac Discharge Activity: Return to Normal Activity, May not drive while taking narcotic pain medications. Allergies/Adverse Reactions: Allergies oxycodone [From OxyContin] Allergy (Verified 03/20/18 10:37) Shortness of breath atorvastatin [From Lipitor] Adverse Reaction (Verified 03/20/18 10:37) Other muscle weakness fish oil Adverse Reaction (Verified 03/20/18 10:37) Other muscle weakness morphine Adverse Reaction (Verified 03/20/18 10:37) Other MIGRAIN TAO Medications to take at Discharge Aspirin [Aspirin, Baby] 81 mg PO QODAY 11/21/14 Carbidopa/Levodopa 10/100 [Sinemet 10/100] 1 tablet PO QHS PRN 12/23/16 Dextrose [Glucose] 4 gm PO PRN PRN 12/23/16 Insulin Aspart [Novolog Flexpen] 20 units SC DINNER 12/23/16 Insulin Aspart [Novolog Flexpen] 24 units SC BREAKFAST 12/23/16 Insulin Aspart [Novolog Flexpen] 28 units SC LUNCH 12/23/16 Insulin Glargine [Lantus SoloStar Pen] 60 units SC BID 12/23/16 Multivitamin,Therapeutic [Thera] 1 each PO DAILY 12/23/16 Pregabalin [Lyrica] 150 mg PO Q8H 12/23/16 Pyridoxine HCl [Vitamin B-6] 100 mg PO DAILY 12/23/16 Thiamine HCl [Vitamin B-1] 100 mg PO DAILY 12/23/16 Ondansetron HCl [Zofran] 8 mg PO TID PRN #15 tablet 12/25/16 traZODone [Desyrel] 100 mg PO QHS PRN 03/18/17 Benzonatate [Tessalon Perle] 100 mg PO TID PRN 10/02/17 Fluticasone 0.05% [Flonase Nasal [place]] 2 spray NASAL BID PRN 10/02/17 Furosemide [Lasix] 20 mg PO DAILY 10/02/17 Lisinopril [Zestril] 10 mg PO DAILY 10/02/17 Potassium Chloride [K-Dur] 20 meq PO DAILY 10/02/17 Topiramate [Topamax] 150 mg PO QHS 10/02/17 Guaifenesin 400 mg PO Q4H PRN PRN 03/20/18 Lipase/Protease/Amylase [Creon Dr 24,000 Units Capsule] 2 capsule PO TIDCM 03/20/18 Metoprolol Tartrate 25 mg PO BID 03/20/18 Pantoprazole Sodium [Protonix] 40 mg PO BID 03/20/18 Rosuvastatin Calcium 40 mg PO QHS 03/20/18 Amlodipine [Norvasc] 2.5 mg PO DAILY #90 tablet 03/22/18 Clopidogrel Bisulfate [Plavix] 75 mg PO DAILY #90 tablet 03/22/18 Isosorbide Mononitrate [Imdur] 30 mg PO DAILY #90 tablet 03/22/18 The following prescriptions were given: Amlodipine [Norvasc] 2.5 mg PO DAILY #90 tablet Clopidogrel Bisulfate [Plavix] 75 mg PO DAILY #90 tablet Isosorbide Mononitrate [Imdur] 30 mg PO DAILY #90 tablet Primary Care Physician: Dima Tavarez MD [Primary Care Provider] - Please follow up with your Primary Care Physician in: in 5-7 days Test Results: Test results from this visit will be discussed in further detail at your follow- up appointment, if applicable. Please Follow Up With: Wiliam Olivarez MD When: in 2-3 weeks Proposed Discharge Date: 03/22/18
--- NOTE | 2018-03-22 12:52 | PCM.DC.SUM ---
Discharge Date and Diagnosis - Problem List Patient Problems: Active and Suspected Problems NSTEMI (non-ST elevated myocardial infarction) (Acute) Date of Admission: 03/20/18 Date of Discharge: 03/22/18 - Primary Discharge Diagnosis Active and Suspected Problems NSTEMI (non-ST elevated myocardial infarction) (Acute) - Secondary Discharge Diagnosis Chronic Problems Hx of CABG (Chronic) CAD (coronary artery disease) (Chronic) HLD (hyperlipidemia) (Chronic) Carotid artery disease (Chronic) Post traumatic stress disorder (PTSD) (Chronic) Type 2 diabetes mellitus (Chronic) Neuropathy (Chronic) Obstructive sleep apnea (Chronic) Hypertension (Chronic) Restless legs syndrome (Chronic) Chronic headaches (Chronic) Numbness and tingling in right hand (Chronic) Hospital Course and Treatment Operations: None Summary of Care Provided: Patient is a 67-year-old gentleman with multiple comorbidities including CAD status post CABG in August 2017 presented with exertional dyspnea as well as chest pain. Patient was found to have elevated troponin on admission and assessment of unstable angina made admitted to a monitored bed for subsequent management 1. Acute N STEMI/unstable angina: Patient admitted to a monitored bed treatment initiated per protocol consisting of therapeutic Lovenox, beta-blockers, ARCADIO inhibitors and aspirin. Patient is not on statin therapy due to reported allergy. An echo was ordered for left ventricular function assessment and consultation placed to Dr. Olivarez. Patient underwent left heart catheterization on the morning of 03/21/2018 with PTCA/PHAN to his proximal OM 2 2. CAD with CABG in August 2017 requisition was placed to obtain old records from with [facility] in [place] 3. Diabetes mellitus type II: Placed on long acting insulin, Accu-Cheks a.c. and at bedtime and covered with sliding scale insulin 4. Persistent cough do suspect ARCADIO I induced cough plan is to switch to ARB prior to discharge 5. Dyslipidemia-patient is on gemfibrozil apparently allergic to statins, 6. GERD on PPI 7. Hypertension-blood pressure controlled, home medications continued with dose adjustment as needed 8. DVT prophylaxis patient is on therapeutic Lovenox Patient Problems: Active and Suspected Problems NSTEMI (non-ST elevated myocardial infarction) (Acute) - Physical Exam General: Alert HEENT: Atraumatic Neck: Supple Lungs: Normal air movement Cardiovascular: Regular rate, Regular Rhythm Neurological: Neuro grossly intact Psych/Mental Status: Normal Affect Vital Signs Temp Pulse Resp BP Pulse Ox 97.6 F L 85 25 H 104/51 L 93 03/22/18 12:00 03/22/18 12:00 03/22/18 12:00 03/22/18 12:00 03/22/18 12:00 Oxygen Flow Rate (L/min) 2 Oxygen Delivery Method Room Air Weight: 100.1 kg Body Mass Index (BMI) 31.6 Intake and Output for Last 24 Hours 03/20/18 03/21/18 03/22/18 23:59 23:59 23:59 Intake Total 665 / 665 879 / 879 120 / 120 Output Total 250 / 250 1310 / 1310 120 / 120 Balance 415 / 415 -431 / -431 0 / 0 Laboratory Tests Past 24 Hrs 03/21/18 03/22/18 03/22/18 10:45 04:15 04:15 WBC 9.1 RBC 4.65 Hgb 12.7 L Hct 39.0 L MCV 83.9 MCH 27.3 MCHC 32.6 RDW 14.7 H RDW Differential 44.1 H Plt Count 164 MPV 11.4 Activated Clotting Time 175 H Sodium 137 Potassium 4.3 Chloride 106 Carbon Dioxide 21.0 Anion Gap 10 BUN 28 H Creatinine 1.39 H Estim Creat Clear Calc 51.79 Est GFR (MDRD) Af Amer 65 Est GFR (MDRD) Non-Af 54 L BUN/Creatinine Ratio 20.1 H Glucose 147 H Calcium 8.8 Triglycerides 638 H Cholesterol 205 H LDL Cholesterol TNP VLDL Cholesterol TNP HDL Cholesterol 19 L POC Glucose 03/22/18 03/22/18 03/22/18 11:39 08:14 06:02 POC Glucose 231 H 167 H 170 H 03/21/18 03/21/18 21:08 16:00 POC Glucose 144 H 144 H Discharge Diet: Low fat/ Low Cholesterol Discharge Activity: Return to Normal Activity, May not drive while taking narcotic pain medications. Home Medications: Medications to take at Discharge Aspirin [Aspirin, Baby] 81 mg PO QODAY 11/21/14 Carbidopa/Levodopa 10/100 [Sinemet 10/100] 1 tablet PO QHS PRN 12/23/16 Dextrose [Glucose] 4 gm PO PRN PRN 12/23/16 Insulin Aspart [Novolog Flexpen] 20 units SC DINNER 12/23/16 Insulin Aspart [Novolog Flexpen] 24 units SC BREAKFAST 12/23/16 Insulin Aspart [Novolog Flexpen] 28 units SC LUNCH 12/23/16 Insulin Glargine [Lantus SoloStar Pen] 60 units SC BID 12/23/16 Multivitamin,Therapeutic [Thera] 1 each PO DAILY 12/23/16 Pregabalin [Lyrica] 150 mg PO Q8H 12/23/16 Pyridoxine HCl [Vitamin B-6] 100 mg PO DAILY 12/23/16 Thiamine HCl [Vitamin B-1] 100 mg PO DAILY 12/23/16 Ondansetron HCl [Zofran] 8 mg PO TID PRN #15 tablet 12/25/16 traZODone [Desyrel] 100 mg PO QHS PRN 03/18/17 Benzonatate [Tessalon Perle] 100 mg PO TID PRN 10/02/17 Fluticasone 0.05% [Flonase Nasal [place]] 2 spray NASAL BID PRN 10/02/17 Furosemide [Lasix] 20 mg PO DAILY 10/02/17 Lisinopril [Zestril] 10 mg PO DAILY 10/02/17 Potassium Chloride [K-Dur] 20 meq PO DAILY 10/02/17 Topiramate [Topamax] 150 mg PO QHS 10/02/17 Guaifenesin 400 mg PO Q4H PRN PRN 03/20/18 Lipase/Protease/Amylase [Creon Dr 24,000 Units Capsule] 2 capsule PO TIDCM 03/20/18 Metoprolol Tartrate 25 mg PO BID 03/20/18 Pantoprazole Sodium [Protonix] 40 mg PO BID 03/20/18 Rosuvastatin Calcium 40 mg PO QHS 03/20/18 Amlodipine [Norvasc] 2.5 mg PO DAILY #90 tablet 03/22/18 Clopidogrel Bisulfate [Plavix] 75 mg PO DAILY #90 tablet 03/22/18 Isosorbide Mononitrate [Imdur] 30 mg PO DAILY #90 tablet 03/22/18 Following Prescrptions Were Given to Patient: Amlodipine [Norvasc] 2.5 mg PO DAILY #90 tablet Clopidogrel Bisulfate [Plavix] 75 mg PO DAILY #90 tablet Isosorbide Mononitrate [Imdur] 30 mg PO DAILY #90 tablet Primary Care Physician: Dima Tavarez MD [Primary Care Provider] - Please follow up with your Primary Care Physician in: in 5-7 days Please Follow Up With: Wiliam Olivarez MD When: in 2-3 weeks Disposition: Home Minutes spent on discharge:: 43 Medical Necessity - Tobacco Use Smoking Status: Never smoker Meaningful Use Info Meaningful Use Diagnoses (Choose all that apply): AMI - AMI Aspirin given w/in 24hrs of arrival?: Yes ASA at discharge?: Yes Statins at discharge?: Yes Arcadio/ARB at discharge?: Yes Beta Danay at discharge?: Yes Done w/ Acute MS measure.: Yes Code Visit Inpatient E&M: [id number] Disch Hosp
--- NOTE | 2018-03-22 16:15 | NURSING ---
pt instructions given. he indicates understanding. This RN instructed pt to call when he was finished dressing and we would dc per WC. pt and his left the unit w/out calling for staff leaving written instructions/med list/mynx and stent card. This RN attempted to reach pt before he left the hospital but was unable. paperwork taken to [facility] office, given to Yan Lott FILM RECORDIST to give to pt at his next appt.
--- NOTE | 2018-03-22 19:27 | PCM.PN.CARD ---
Subjectve: The patient was evaluated earlier this day. He was noted to be, status post nitroglycerin therapy hypotensive. This spontaneously resolved. He has subsequently been up and active and ambulating without obvious symptoms of his chest discomfort, worsening shortness of breath/dyspnea, or any other acute event. His subsequent blood pressures did stabilize but yet remained intermittently on the lower side. He did not appear to have any acute symptoms associated with his blood pressure change. Objective: Vital Signs Temp Pulse Resp BP Pulse Ox 98.4 F 85 23 H 110/49 L 95 03/22/18 16:15 03/22/18 16:15 03/22/18 16:15 03/22/18 16:15 03/22/18 16:15 Oxygen Flow Rate (L/min) 2 Oxygen Delivery Method Room Air Weight: 220 lb 10.923 oz Body Mass Index (BMI) 31.6 Intake and Output for Last 24 Hours 03/20/18 03/21/18 03/22/18 23:59 23:59 23:59 Intake Total 665 / 665 879 / 879 120 / 120 Output Total 250 / 250 1310 / 1310 120 / 120 Balance 415 / 415 -431 / -431 0 / 0 General: Awake, Alert, Oriented x 3, Cooperative, No Acute Distress HEENT: Atraumatic, Normocephalic, PERRL, EOMI, Sclera Non Icteric Oral: Moist Mucosa Neck: Supple, Good ROM, No JVD Lungs: Clear to auscultation Cardiovascular: Regular Rhythm, Normal S1, Normal S2 Vascular: Normal Femoral Pulses Abdomen: Bowel Sounds Present, Soft, Non Tender Extremities: No edema Neurological: No Focal Motor or Sensory Deficit Psych/Mental Status: Appropriate 03/22/18 04:15: Sodium 137, Potassium 4.3, Chloride 106, Carbon Dioxide 21.0, Anion Gap 10, BUN 28 H, Creatinine 1.39 H, Est GFR (MDRD) Af Amer 65, Est GFR (MDRD) Non-Af 54 L, BUN/Creatinine Ratio 20.1 H, Glucose 147 H, Calcium 8.8, Triglycerides 638 H, Cholesterol 205 H, LDL Cholesterol TNP, VLDL Cholesterol TNP, HDL Cholesterol 19 L 03/22/18 04:15: WBC 9.1, RBC 4.65, Hgb 12.7 L, Hct 39.0 L, MCV 83.9, MCH 27.3, MCHC 32.6, RDW 14.7 H, RDW Differential 44.1 H, Plt Count 164, MPV 11.4 Rhythm: Sinus rhythm Medical Necessity - Tobacco Use Smoking Status: Never smoker Assessment/Plan 1. Non-ST segment elevation [place] The patient is now status post medication adjustment and cardiac catheterization with subsequent PCI to the OM system as previously noted. He will need to continue medical management and outpatient cardiovascular follow-up. 2. CAD status post CABG The patient does have [place] multivessel CAD. His 3 grafts are patent with a GARCIA to the LAD, and SVG appearing to go to a diagonal branch, and an SVG to the distal RCA system. He has [place] vessel disease involving the ostial portions of the LCx, OM, and intermediate ramus. He was able to undergo PCI of the OM vessel. At the present time he will continue medical management with adjustment as needed. 3. Hyperlipidemia The patient states he is intolerant to statins and fish oil. His triglycerides are markedly elevated. His total cholesterol is elevated. He will be placed on medical management with fenofibrate. 4. Hypertension His blood pressure has fluctuated. It appears that his blood pressure decreased following his oral nitrate therapy. At the present time he will decrease his oral nitrate therapy to isosorbide mononitrate 15 mg a day. Depending upon his blood pressure response he may or may not need further adjustment of his medications. 5. Diabetes mellitus He will continue under the care of internal medicine. 6. Carotid artery disease He does have bilateral carotid artery bruits. He has had a carotid artery duplex study performed at the [facility]. Per the reports available for review the right carotid artery was reported as mild in the left carotid artery was reported as moderate. He will need continued risk factor evaluation care as deemed appropriate. Overall he appears to be symptomatically improved and at this time hemodynamically stable. He is scheduled for release home for continued outpatient follow-up. Comment: The patient's case was discussed and reviewed with patient and his family members present. This note was generated with [employer] software. It may contain incorrect words, spelling, and punctuation that were not noted in checking the note before signing.
--- NOTE | 2018-03-22 19:31 | PN.CARD_ITS ---
Subjectve: The patient was evaluated earlier this day. He was noted to be, status post nitroglycerin therapy hypotensive. This spontaneously resolved. He has subsequently been up and active and ambulating without obvious symptoms of his chest discomfort, worsening shortness of breath/dyspnea, or any other acute event. His subsequent blood pressures did stabilize but yet remained intermittently on the lower side. He did not appear to have any acute symptoms associated with his blood pressure change. Objective: Vital Signs Temp Pulse Resp BP Pulse Ox 98.4 F 85 23 H 110/49 L 95 03/22/18 16:15 03/22/18 16:15 03/22/18 16:15 03/22/18 16:15 03/22/18 16:15 Oxygen Flow Rate (L/min) 2 Oxygen Delivery Method Room Air Weight: 220 lb 10.923 oz Body Mass Index (BMI) 31.6 Intake and Output for Last 24 Hours 03/20/18 03/21/18 03/22/18 23:59 23:59 23:59 Intake Total 665 / 665 879 / 879 120 / 120 Output Total 250 / 250 1310 / 1310 120 / 120 Balance 415 / 415 -431 / -431 0 / 0 General: Awake, Alert, Oriented x 3, Cooperative, No Acute Distress HEENT: Atraumatic, Normocephalic, PERRL, EOMI, Sclera Non Icteric Oral: Moist Mucosa Neck: Supple, Good ROM, No JVD Lungs: Clear to auscultation Cardiovascular: Regular Rhythm, Normal S1, Normal S2 Vascular: Normal Femoral Pulses Abdomen: Bowel Sounds Present, Soft, Non Tender Extremities: No edema Neurological: No Focal Motor or Sensory Deficit Psych/Mental Status: Appropriate 03/22/18 04:15: Sodium 137, Potassium 4.3, Chloride 106, Carbon Dioxide 21.0, Anion Gap 10, BUN 28 H, Creatinine 1.39 H, Est GFR (MDRD) Af Amer 65, Est GFR (MDRD) Non-Af 54 L, BUN/Creatinine Ratio 20.1 H, Glucose 147 H, Calcium 8.8, Triglycerides 638 H, Cholesterol 205 H, LDL Cholesterol TNP, VLDL Cholesterol TNP, HDL Cholesterol 19 L 03/22/18 04:15: WBC 9.1, RBC 4.65, Hgb 12.7 L, Hct 39.0 L, MCV 83.9, MCH 27.3, MCHC 32.6, RDW 14.7 H, RDW Differential 44.1 H, Plt Count 164, MPV 11.4 Rhythm: Sinus rhythm Medical Necessity - Tobacco Use Smoking Status: Never smoker Assessment/Plan 1. Non-ST segment elevation [place] The patient is now status post medication adjustment and cardiac catheterization with subsequent PCI to the OM system as previously noted. He will need to continue medical management and outpatient cardiovascular follow-up. 2. CAD status post CABG The patient does have [place] multivessel CAD. His 3 grafts are patent with a GARCIA to the LAD, and SVG appearing to go to a diagonal branch, and an SVG to the distal RCA system. He has [place] vessel disease involving the ostial portions of the LCx, OM, and intermediate ramus. He was able to undergo PCI of the OM vessel. At the present time he will continue medical management with adjustment as needed. 3. Hyperlipidemia The patient states he is intolerant to statins and fish oil. His triglycerides are markedly elevated. His total cholesterol is elevated. He will be placed on medical management with fenofibrate. 4. Hypertension His blood pressure has fluctuated. It appears that his blood pressure decreased following his oral nitrate therapy. At the present time he will decrease his oral nitrate therapy to isosorbide mononitrate 15 mg a day. Depending upon his blood pressure response he may or may not need further adjustment of his medications. 5. Diabetes mellitus He will continue under the care of internal medicine. 6. Carotid artery disease He does have bilateral carotid artery bruits. He has had a carotid artery duplex study performed at the [facility]. Per the reports available for review the right carotid artery was reported as mild in the left carotid artery was reported as moderate. He will need continued risk factor evaluation care as deemed appropriate. Overall he appears to be symptomatically improved and at this time hemodynamically stable. He is scheduled for release home for continued outpatient follow-up. Comment: The patient's case was discussed and reviewed with patient and his family members present. This note was generated with [employer]ation software. It may contain incorrect words, spelling, and punctuation that were not noted in checking the note before signing.
--- NOTE | 2018-03-23 16:16 | CASEMGMT ---
NEISHA LEMONS Discharge Follow-Up Phone Call. LACE: 10 Strata: 3 Discharge Date: 03-22-18 Adm Dx: NSTEMI Attempted discharge follow-up phone call. No answer. Message left for Mr Bishop to return call if he has any questions or concerns re: discharge instructions. Provided this RN CM's phone number as well as CM office number. Marianela GUTIERREZ RN, CM
== END 2018-03-22 16:55 | disposition home or self-care (01) | DRG 247 ==
LOC: ED 10:44 → PCU 13:04 → ICU 03-21 10:25
PROVIDERS: Internal Medicine Cardiovascular Disease; Admitting Provider Internal Medicine; Emergency Provider Emergency Medicine; Family Provider Family Medicine; PCP Family Medicine; Visit Provider Internal Medicine
DX: I21.4 Non-ST elevation (NSTEMI) myocardial infarction (principal); I10 Essential (primary) hypertension; F43.10 Post-traumatic stress disorder, unspecified; G25.81 Restless legs syndrome; E78.5 Hyperlipidemia, unspecified; K21.9 Gastro-esophageal reflux disease without esophagitis; I25.110 Atherosclerotic heart disease of native coronary artery with unstable angina pectoris; G47.33 Obstructive sleep apnea (adult) (pediatric); E11.40 Type 2 diabetes mellitus with diabetic neuropathy, unspecified; Z95.1 Presence of aortocoronary bypass graft; Z79.82 Long term (current) use of aspirin; Z79.4 Long term (current) use of insulin; Z79.899 Other long term (current) drug therapy; Z82.49 Family history of ischemic heart disease and other diseases of the circulatory system
CPT/HCPCS: 36415; 71045; 71275; 80048; 80061; 82962; 84443; 84484; 85025; 85027; 85347; 85379; 85610; 85730; 92928; 93005; 93306; 93459; 99152; 99153; 99251; 99283; C1760; J7030; Q9957; Q9967; A4216; C1725; C1769; C1874; C1887; C1894; C8929; C9600; G0463

== ENCOUNTER → 2018-04-26 09:25 | Outpatient (CLI) | payer MEDICARE, OTHER, SELFPAY ==
[2018-03-20 14:00] VITALS: BMI 31.6
[2018-03-21 13:40] VITALS: BMI 31.6
[2018-04-23 11:12] VITALS: BMI 31.6
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
--- NOTE | 2018-04-26 10:21 | CR.ITP_ITS ---
General Information - General Information Admitting Diagnosis: NSTEMI, PCI w/coronary stent 01/22/18. Previous CABG August 152017 in past. - Education/Goals Individual Counseling: Initial Assessment: Abnormal Cholesterol Levels - 222 , High Blood Pressure, Overweight/Obesity, Diabetes, A. Fasting Blood Sugar >100, B. Waist Circumference >35/Females >40/Males, C. High Triglycerides >150 - 617, Hypertension, Low HDL <40/Males or <50/Females, Family History of Heart Disease (under 65 years) Cardiac Rehabilitation Goals: 1. Maintain the individual as the primary focus of care. 2. To improve the patient's quality of life. 3. Identification of cardiac risk factors and provide cardiac risk factor management. 4. Enhance the psychosocial status of the patient. 5. Reconditioning enough to allow the patient to resume customary activities. 6. Control symptoms of cardiac disease Scale for measuring improvement of personal goals: Enter appropriate number in Comments. 2 = Unchanged. 3 = Slightly Better. 4 = Moderate Improvement. 5 = Met my Goal Personal Goals: Initial Assessment: Improve energy level, Participate in home exercise program, Improve knowledge of cardiac disease, Improve muscle strength and endurance, Control risk factors (learn risk factor modification) Exercise - Initial Assessment - Visit Date of Eval: 04/26/18 Session #:: 0 - Stages of Change Stages of Change:: Action - Exercise Prescription Mode:: Treadmill, Rower, Airdyne, NuStep Angina with exercise?: No Target Heart Rate:: 105-112 - Hypertension Do any of the following apply?: Yes, Medication Resting Blood Pressure:: 104/50 - Intervention Home Exercise/Activity Goal:: Moderate Exercise 30 min/day x 5 days/wk - Education Goals:: Warm-up, RPE SHERIF Scale, S/S, Safe Exercise, Self-Monitoring - Exercise Program Goals Exercise Program Goals: Aerobic Activity >30 min Nutrition - Initial Assessment - Program Goals Nutrition Program Goals: LDL <70. Total Cholesterol <200. HDL >45. Triglycerides <150. HgbA1C <7%. BMI <25 - Visit Date of Assessment:: 04/26/18 - Stages of Change Stages of Change:: Action - Lipids Total Cholesterol (mg/dL) Goal = less than 200 mg/dL: 205 HDL Cholesterol (mg/dL) Goal = less than 45 mg/dL: 19 LDL Cholesterol (mg/dL) Goal = less than 70 mg/dL: 0 Triglycerides (mg/dL) Goal = less than 150 mg/dL: 638 - Diabetes Diabetes:: Yes Insulin: Yes Non-Insulin Dependent?: No Do you monitor your blood sugar at home?: Yes - Weight Management Height: 5 ft 10 in Weight:: 220 lb Body Fat %:: 31.6 - Intervention Referral to dietitian:: Yes Referral to Diabetic Clinic:: Yes Will attend diet classes:: Yes - Education Gave educational materials for:: Signs & symptoms of hypoglycemia, Signs & symptoms of hyperglycemia, Relate diabetes to coronary artery disease, Healthy eating Tobacco - Initial Assessment - Program Goals Tobacco Program Goals: Complete smoking cessation. Attend education classes. Improve Knowledge Test score - Stage of Change Stages of Change:: Action - Learning Barriers Learning Barriers: Hearing, Vision - bilateral cataract removal , Ready to Learn - Tobacco Use Tobacco Use: Non-smoker Do you use smokeless tobacco?: No - Intervention Smoking Cessation Referral:: No Individual Education/Counseling:: No Education Schedule Given:: Yes - Education Gave educational material for:: Coronary artery disease, Risk factors, Sexuality, Medical compliance, Cardiac A&P, Angina signs & symptoms Psychosocial - Initial Assess - Target Goals Target Goals: Assess presence or absence of depression. Using a valid screening tool, maximizes coping skills. Positive support system - Stages of Change Stages of Change:: Action - Psychosocial Test Tool Used:: HANDS Depression Questionnaire - Intervention PS - Interventions: Yes Attend Stress Management Classes, No Referral to Mental Health, No Referral to [facility] Case Management, No Referral to Physician, No Uses Stress Management Skills - Education Gave educational materials for:: Coping techniques, Signs & symptoms of depression, Stress management, Relaxation techniques - Patient/Program Goal Preventative Medication(s):: Aspirin, Clopidogrel, Beta yonatan, Statin/lipid - Assistive Devices Assistive Devices:: None Fall Risk Assessed:: Yes Patient Health Questionnaire Initial Assessment 1. Little interest or pleasure in doing things: Several days 2. Feeling down, depressed, or hopeless: Not at all 3. Trouble falling or staying asleep, or sleeping too much: Several days 4. Feeling tired or having little energy: Several days 5. Poor appetite or overeating: More than half the days 6. Feeling bad about yourself -- or that you are a failure or have let yourself or your family down: Not at all 7. Trouble concentrating on things, such as reading the newspaper or watching television: Not at all 8. Moving or speaking so slowly that other people could have noticed. Or the opposite - being so fidgety or restless that you have been moving around a lot more than usual: Not at all 9. Thoughts that you would be better off , or of hurting yourself in some way: Not at all How difficult have these problems made it for you to do your work, take care of things at home, or get along with other people?: Not difficult at all Total Score: 5 SEVEN-Q SV Test - Statements CAD is a disease of the arteries in the heart: I Don't Know Examples of risk factors for heart disease: True Angina is chest pain or discomfort: True The benefits of resistance training include: I Don't Know Eating more meat and dairy products: I Don't Know Anti-platelet medications such as aspirin are important: True The only effective way to manage stress: True An exercise warm-up slowly increases heart rate: I Don't Know Prepared, processed foods usually have high sodium: I Don't Know Depression is common after a heart attack: I Don't Know The statin medications lower cholesterol: I Don't Know To control blood pressure, lower the amount of sodium: True If someone gets chest discomfort during walking: False Transfats are partially hydrogenated vegetable oils: I Don't Know Sleep apnea that is not treated increases the risk: I Don't Know To control cholesterol, one should become a vegetarian: I Don't Know Someone knows if he/she is exercising at the right level: True Diabetes cannot be prevented with exercise & health eating: False Stress is a large risk for heart attack: True A diet that can help lower blood pressure is rich in: I Don't Know - Total Score Total Correct Responses: 8 Self-Efficacy Initial Assessment We would like to know how confident you are in doing certain activities. Please select your confidence level for:: Select your confidence level for the following using the scale 1-10 where 1 is not at all confident and 10 is totally confident. Your score is the average of all 6 responses. Fatigue: How confident are you that you can keep the fatigue caused by your disease from interfering with the things you want to do? Select Number: 9 Physical Discomfort or Pain: How confident are you that you can keep the physical discomfort or pain of your disease from interfering with the things you want to do? Select Number: 10 Emotional Distress: How confident are you that you can keep the emotional distress caused by your disease from interfering with the things you want to do? Select Number: 9 Other Symptoms or Health Problems: How confident are you that you can keep other symptoms or health problems from interfering with the things you want to do? Select Number: 9 Different Tasks and Activities: How confident are you that you can do the different tasks and activities needed to manage your health condition so as to reduce your need to see a doctor? Select Number: 9 Medication: How confident are you that you can do things other than just taking medication to reduce how much your illness affects your everyday life? Select Number: 9 Total Score:: 9 Nutrition Survey - Nutrition Survey Instructions Scoring Instructions: Scoring is as follows: Yes = 1 points. No = 0 point. Patient score that is >/=12 is considered to be at potential nutritional risk and could benefit from a referral to a registered dietitian. - Nutrition Survey Initial Have you lost >10 lbs over the past 2 months without trying?: No Are you following a special diet at home for diabetes, low fat, or low salt?: Yes Are you interested in meeting with a dietitian for help understanding your diet?: No Do you eat less than 3 meals a day?: Yes Do you eat fatty meats (ontiveros, sausage, ribs, etc), fried foods, desserts, large amounts of salad dressings, margarine, butter, or cheese most days?: Yes Do you have food allergies? [Enter types in comment field]: No Do you eat in restaurants more than 3 times a week?: No Do you season food with salt, seasoning salt, or garlic salt?: No Do you used canned, boxed, frozen meals, or soups, seasoning packets?: No Total Score:: 3
[2018-04-26 10:46] VITALS: BP 104/50; PULSE 84; RESP 16; TEMP 37.1; O2SAT 93; BMI 31.5
[2018-04-26 10:57] VITALS: BP 104/50
== END ==
PROVIDERS: Family Provider Family Medicine; PCP Family Medicine; Referring Provider Internal Medicine Cardiovascular Disease; Visit Provider Internal Medicine Cardiovascular Disease
DX: I25.2 Old myocardial infarction (principal); Z95.5 Presence of coronary angioplasty implant and graft

== ENCOUNTER → 2018-05-01 10:49 | Outpatient (CLI) | payer MEDICARE, SELFPAY ==
[2018-03-21 13:40] VITALS: BMI 31.6
[2018-04-23 11:12] VITALS: BMI 31.6
[2018-04-26 10:46] VITALS: BMI 31.5
[2018-05-01 12:04] LABS: AST(SGOT) 119 U/L (15-37); Alanine Aminotransfer ALT/SGPT 90 U/L (16-61); Albumin, Serum 3.5 g/dL (3.2-5.0); Alkaline Phosphatase 147 U/L (45-117); Cholesterol 225 mg/dL (200); Globulin 4.6 g/dL (2.2-4.2); High Density Lipoprotein 21 mg/dL; Protein, Total 8.1 g/dL (6.4-8.2); Triglycerides 527 mg/dL
--- NOTE | 2018-05-01 16:03 | STRESSREP ---
Stress Test Report Date: 05/01/2018 Procedure: Exercise tolerance test Indications: CAD, non-ST segment elevation CO, status post PCI, status post CABG, pre cardiac rehabilitation evaluation Consent: Per the patient Procedure: The patient exercised on a Modified Michael protocol for 8 minutes completing Stage II and 2 minutes of Stage III achieving a peak heart rate of 129 bpm (86 % predicted maximal heart rate) with a peak blood pressure 188/82 mmHg and a peak MET capacity of approximately 4 MET's. The baseline ECG demonstrated Normal sinus rhythm; anterolateral CO of indeterminate age cannot be excluded . The peak exercise ECG demonstrated No obvious ECG changes . There were no cardiac dysrhythmias pretest, during exercise, or recovery. The functional capacity was considered decreased . The patient had no complaint of chest discomfort during exercise or recovery. The examination was discontinued secondary to Dyspnea . Impression: 1. Technically adequate (percent predicted maximal heart rate greater than 85%) exercise tolerance test 2. Peak exercise ECG with with no obvious ECG changes 3. There were no cardiac dysrhythmias during exercise or recovery This note was generated with [employer] software. It may contain incorrect words, spelling, and punctuation that were not noted in checking the note before signing.
--- NOTE | 2018-05-01 16:07 | STRESSREP_ITS ---
Stress Test Report Date: 05/01/2018 Procedure: Exercise tolerance test Indications: CAD, non-ST segment elevation WI, status post PCI, status post CABG, pre cardiac rehabilitation evaluation Consent: Per the patient Procedure: The patient exercised on a Modified Michael protocol for 8 minutes completing Stage II and 2 minutes of Stage III achieving a peak heart rate of 129 bpm (86 % predicted maximal heart rate) with a peak blood pressure 188/82 mmHg and a peak MET capacity of approximately 4 MET's. The baseline ECG demonstrated Normal sinus rhythm; anterolateral WI of indeterminate age cannot be excluded . The peak exercise ECG demonstrated No obvious ECG changes . There were no cardiac dysrhythmias pretest, during exercise, or recovery. The functional capacity was considered decreased . The patient had no complaint of chest discomfort during exercise or recovery. The examination was discontinued secondary to Dyspnea . Impression: 1. Technically adequate (percent predicted maximal heart rate greater than 85%) exercise tolerance test 2. Peak exercise ECG with with no obvious ECG changes 3. There were no cardiac dysrhythmias during exercise or recovery This note was generated with [employer] software. It may contain incorrect words, spelling, and punctuation that were not noted in checking the note before signing.
== END ==
PROVIDERS: Family Provider Family Medicine; PCP Family Medicine; Referring Provider Internal Medicine Cardiovascular Disease; Visit Provider Internal Medicine Cardiovascular Disease
DX: E78.5 Hyperlipidemia, unspecified (principal); I25.10 Atherosclerotic heart disease of native coronary artery without angina pectoris
CPT/HCPCS: 36415; 80061; 80076; 93017

== ENCOUNTER 2018-05-14 10:15 | Outpatient (RCR) | payer MEDICARE, SELFPAY ==
[2018-03-21 13:40] VITALS: BMI 31.6
[2018-04-26 10:46] VITALS: BMI 31.5
--- OUTSIDE RECORDS SUMMARY | 2018-07-06 22:01 | XMS RPT_ITS ---
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 levels. He will be placed on fenofibrate. A prescription was given for this for him to take to the [facility] to be processed. He will also be asked to have future lipid lab Orders Orders: 5. Essential hypertension I10 Plan His blood pressure appears to be reasonably well controlled. He will continue medical therapy and follow-up. Plan Detail Other Medications New: Changed: To: isosorbide mononitrate ER 1/2 tablet by mouth 30 mg PO DAILY 90 tabs 3RF heart daily Additional Comments Thank you for allowing me to participate in the care of your patient. Please don't hesitate to call if any issues arise. This note was generated using a voice recognition system and there may be incorrect words, spelling or punctuation that were not noted when reviewing the office note prior to saving. Follow Up 3 Months (PFM) Coding Level of Care Code Off vis,est,level 4 Diagnoses CAD (coronary artery disease) I25.10 Coronary Disease-Associated Artery/Lesion type: [place] artery [place] vs. transplanted heart: [place] heart S/P coronary artery stent placement Z95.5 History of coronary artery bypass graft Z95.1 Hyperlipidemia, unspecified hyperlipidemia type E78.5 Hyperlipidemia type: unspecified Essential hypertension I10 Coding Level of Care Code Off vis,est,level 4 Diagnoses CAD (coronary artery disease) I25.10 Coronary Disease-Associated Artery/Lesion type: [place] artery [place] vs. transplanted heart: [place] heart S/P coronary artery stent placement Z95.5 History of coronary artery bypass graft Z95.1 Hyperlipidemia, unspecified hyperlipidemia type E78.5 Hyperlipidemia type: unspecified Essential hypertension I10 Supplemental Info Supplemental Information Transthoracic echocardiogram: 03/20/2018 Interpretation Summary The study was technically difficult. Contrast injection was performed. Mild segmental systolic dysfunction (see wall motion). The estimated ejection fraction is 45 %. There is mild to moderate mitral annular calcification. Extension of the mitral annular calcification onto the posterior mitral valve leaflet. Mild (1+) mitral valve insufficiency. Mild tricuspid valve insufficiency. Mild focal aortic valve thickening. Trivial aortic valve insufficiency. Trivial pulmonic valve insufficiency. Right ventricular systolic pressure estimated to be 18 mmHg. Transmitral diastolic flow velocities suggest diastolic dysfunction (pseudonormal pattern). Stress test: 03/20/2017 Stress protocol: Resting EKG demonstrates normal sinus rhythm with a rate of 75 bpm. Normal intervals are noted. Resting blood pressure is 158/82 mmHg. 0.4 mg of regadenoson was infused per usual protocol followed by rapid intravenous saline flush injection. Continuous EKG monitoring was performed. The maximum heart rate attained was 98 bpm which was 64% of the maximum predicted heart rate. The maximum workload attained was 1 metabolic equivalents. At rest there were no ST or T-wave changes noted suggest ischemia at peak exercise no ST or T-wave changes were noted suggest ischemia. Myocardial perfusion protocol. 11.8 mCi of technetium 99m sestamibi was injected at rest. 0.4 mg of regadenoson was infused per usual protocol. At peak infusion 34.3 mCi of technetium 99m sestamibi was injected. Stress images were obtained. Stress and rest images were reconstructed and compared in the short axis vertical long and horizontal long axis. Gated images were also obtained. Perfusion SPECT analysis:. Review of the stress images demonstrate normal uptake of tracer noted in all areas of the myocardium. The resting images similarly demonstrate normal uptake of tracer noted in all areas of the myocardium. There is significant GI uptake noted. No obvious areas of reversibility however are noted suggest ischemia. Gated SPECT analysis: The gated ejection fraction is noted to be 60%. Conclusion: Normal pharmacologic myocardial perfusion stress test. Preserved ejection fraction. Cardiac catheterization: 03/21/2018 CORONARY ANGIOGRAPHY DOMINANCE: Right Dominant LEFT HEART ASSESSMENT Left Ventricular Ejection Fraction: by LV Gram 50 % Inferior Mid Hypokinesis. Apical Hypokinesis Elevated Left Ventricular End Diastolic Pressure LVEDP: 26 mmHg LEFT MAIN: Angiographically normal LEFT ANTERIOR DECENDING ARTERY: PROX LAD: Mild calcification, Diffuse: 25 % Stenosis MID LAD: is occluded, Fills from the GARCIA graft and demonstrates diffuse 25 - 50 % stenosis distal to the graft attachment DIAGONAL 1: Mid - Fills from the SVG graft with no angiographicall appearing significant stenosis distal to the graft attachment CIRCUMFLEX ARTERY: OSTIAL CIRC: is subtotally occluded OM 1: Ostial - is subtotally occluded followed by proximal subtotal occlusion RAMUS: Ostial: is subtotally occluded RIGHT CORONARY ARTERY: PROX RCA: Irregular: 75 % Stenosis MID RCA: Mild luminal irregularities DISTAL RCA: Fills from the SVG graft RT PDA: Proximal - 75 % Stenosis RIGHT AV SEGMENT: 75 % Stenosis GRAFTS: GARCIA graft to the Mid LAD is patent Saphenous Vein graft to the 1st Diagonal is patent Saphenous Vein graft to the RCA is patent VALVE FINDINGS: Normal Aortic Valve function Normal Mitral Valve function AORTIC ROOT: Angiographically normal Cardiac intervention: 03/21/2018 CONCLUSIONS Successful PTCA/PHAN of proximal OM#2 with a 2.25 x 12 Promus Synergy stent; 90%-->0%, no dissection. Unable to cannulate main AV LCX due to tortuosity despite multiple wires. No additional attempts made due to reaching fluoro and IV contrast dye thresholds. Labs LDL Cholesterol TNP 03/22/18 HDL Cholesterol 19 mg/dL (40-) L 03/22/18 Triglycerides 638 mg/dL (-199) H 03/22/18 VLDL Cholesterol TNP 03/22/18 Diagnostics Electrocardiogram 04/23/18 Echocardiogram 03/20/18 Stress Test Nuclear Medicine 03/20/17 Stress Test 03/20/17 Cardiac Catheterization 03/21/18 Chest X-Ray 03/20/18 04/23/18 1305 <Electronically signed by Wiliam Olivarez MD> Date Wiliam Olivarez MD Cosigner Signature: Date (if applicable) CC: Sonja Edward MD 12 LEAD EKG PERFORMED Observed: 04/23/2018 Status: F Source: [facility] BY BMS 10:49 AM [facility] REPOSITORY [facility] [address] [place] [address] 12 Lead EKG performed by BMS 04/23/188 MR#: [id number] Acct: [id number] Name: CAMDEN HOLDER Rep #: [id number] : 1950 68 From: Wiliam Olivarez MD Attending Dr: Wiliam Olivarez MD Status: DEP AMB Ordering Dr: Wiliam Olivarez MD Date: 04/23/18 Location: [facility] [place] Sex: M C Admitted: BMS/12 Lead EKG performed by [facility] [place] ECG Report Interpretation Sinus Rhythm Poor R wave progressionAnterolateral AR, age undeterminedABNORMAL Electronically signed on 04/23/2018 at 17:49 by Wiliam Olivarezwood Software Version [id number] 04/23/18 1755 Date Wiliam Olivarez MD CC: Sonja Edward MD Date Dictated: 04/23/18 1048 Date Transcribed: 04/23/181047 Animal Scientist: PM Signed 12 LEAD ELECTROCARDIOGRAM Observed: 03/23/2018 Status: F Source: [place] 3:18 PM [facility] REPOSITORY [facility] Cardiovascular Services [address] [place] [address] 12 Lead EKG 03/21/18 1120 MR#: [id number] Acct: [id number] Name: CAMDEN HOLDER Rep #: [id number] : 1950 67 From: Adonis Blood MD Attending Dr: Prabhu Zuñiga MD Status: DIS IN Ordering Dr: Wiliam Olivarez MD Date: 03/21/18 Location: ICU Sex: M C Admitted: 03/21/18 Test Reason : POST PCI Blood Pressure : / mmHG Vent. Rate : 076 BPM Atrial Rate : 076 BPM P-R Int : 174 ms QRS Dur : 098 ms QT Int : 390 ms P-R-T Axes : 060 -24 051 degrees QTc Int : 438 ms Normal sinus rhythm Inferior infarct , age undetermined Anteroseptal infarct , age undetermined Abnormal ECG When compared with ECG of 21-MAR-2018 05:57, MANUAL COMPARISON REQUIRED, DATA IS UNCONFIRMED Confirmed by RAY REYNA, ADONIS ([id number]), editorial project manager RADHA FENG ([id number]) on 03/23/2018 3:17:25 PM Referred By: RON Confirmed By:ADONIS BLOOD MD 03/23/18 1517 Date Adonis Blood MD CC: Sonja Edward MD; Prabhu Zuñiga MD; Wiliam Olivarez MD Signed 12 LEAD ELECTROCARDIOGRAM Observed: 03/23/2018 Status: F Source: [place] 3:16 PM [facility] REPOSITORY [facility] Cardiovascular Services [address] [place] [address] 12 Lead EKG 03/22/18 0527 MR#: [id number] Acct: [id number] Name: CAMDEN HOLDER Rep #: [id number] : 1950 67 From: Adonis Blood MD Attending Dr: Prabhu Zuñiga MD Status: DIS IN Ordering Dr: Scott Monique MD Date: 03/22/18 Location: ICU Sex: M C Admitted: 03/21/18 Test Reason : AM EKG Blood Pressure : / mmHG Vent. Rate : 083 BPM Atrial Rate : 083 BPM P-R Int : 154 ms QRS Dur : 100 ms QT Int : 376 ms P-R-T Axes : 045 -34 063 degrees QTc Int : 441 ms Normal sinus rhythm Left axis deviation Inferior infarct , age undetermined Anterolateral infarct , age undetermined Abnormal ECG When compared with ECG of 21-MAR-2018 05:57, MANUAL COMPARISON REQUIRED, DATA IS UNCONFIRMED Confirmed by ADONIS BLOOD MD ([id number]), editorial project manager RADHA FENG ([id number]) on 03/23/2018 3:16:35 PM Referred By: LULY Confirmed By:ADONIS BLOOD MD 03/23/18 1516 Date Adonis Blood MD CC: Scott Monique MD; Sonja Edward MD; Prabhu Zuñiga MD Signed 12 LEAD ELECTROCARDIOGRAM Observed: 03/23/2018 Status: F Source: [place] 3:07 PM [facility] REPOSITORY [facility] Cardiovascular [facility] [place] [address] 12 Lead EKG 03/20/18 1338 MR#: [id number] Acct: [id number] Name: CAMDEN HOLDER Rep #: [id number] : 1950 67 From: Adonis Blood MD Attending Dr: Prabhu Zuñiga MD Status: DIS IN Ordering Dr: Prabhu Zuñiga MD Date: 03/20/18 Location: ICU Sex: M C Admitted: 03/21/18 Test Reason : CP Blood Pressure : / mmHG Vent. Rate : 083 BPM Atrial Rate : 083 BPM P-R Int : 156 ms QRS Dur : 098 ms QT Int : 386 ms P-R-T Axes : 044 -25 049 degrees QTc Int : 453 ms Normal sinus rhythm Inferior infarct , age undetermined Anterior infarct , age undetermined Abnormal ECG When compared with ECG of 20-MAR-2018 10:31, MANUAL COMPARISON REQUIRED, DATA IS UNCONFIRMED Confirmed by ADONIS BLOOD MD ([id number]), editorial project manager RADHA FENG ([id number]) on 03/23/2018 3:07:20 PM Referred By: Confirmed By:ADONIS BLOOD MD 03/23/18 1507 Date Adonis Blood MD CC: Sonja Edward MD; Prabhu Zuñiga MD Signed 12 LEAD ELECTROCARDIOGRAM Observed: 03/23/2018 Status: F Source: [place] 3:06 PM [facility] REPOSITORY [facility] Cardiovascular Services [address] [place] [address] 12 Lead EKG 03/21/18 0557 MR#: [id number] Acct: [id number] Name: CAMDNE HOLDER Rep #: [id number] : 1950 67 From: Adonis Blood MD Attending Dr: Prabhu Zuñiga MD Status: DIS IN Ordering Dr: Scott Monique MD Date: 03/21/18 Location: ICU Sex: M C Admitted: 03/21/18 Test Reason : AM EKG Blood Pressure : / mmHG Vent. Rate : 081 BPM Atrial Rate : 081 BPM P-R Int : 148 ms QRS Dur : 094 ms QT Int : 396 ms P-R-T Axes : 044 -33 055 degrees QTc Int : 460 ms Normal sinus rhythm Left axis deviation Inferior infarct , age undetermined Anterior infarct , age undetermined Abnormal ECG When compared with ECG of 20-MAR-2018 13:38, MANUAL COMPARISON REQUIRED, DATA IS UNCONFIRMED Confirmed by ADONIS BLOOD MD ([id number]), editorial project manager RADHA FENG ([id number]) on 03/23/2018 3:05:49 PM Referred By: DR ZUÑIGA Confirmed By:ADONIS BLOOD MD 03/23/18 1505 Date Adonis Blood MD CC: Scott Monique MD; Sonja Edward MD; Prabhu Zuñiga MD Signed 12 LEAD ELECTROCARDIOGRAM Observed: 03/23/2018 Status: F Source: [place] 2:26 PM [facility] REPOSITORY [facility] Cardiovascular Services [address] [place] [address] 12 Lead EKG 03/20/18 1031 MR#: [id number] Acct: [id number] Name: CAMDEN HOLDER Rep #: [id number] : 1950 67 From: Adonis Blood MD Attending Dr: Prabhu Zuñiga MD Status: DIS IN Ordering Dr: Sharri Lagos DO Date: 03/20/18 Location: ICU Sex: M C Admitted: 03/21/18 Test Reason : CP Blood Pressure : / mmHG Vent. Rate : 095 BPM Atrial Rate : 095 BPM P-R Int : 152 ms QRS Dur : 104 ms QT Int : 368 ms P-R-T Axes : 045 -33 049 degrees QTc Int : 462 ms Normal sinus rhythm Left axis deviation Inferior infarct , age undetermined Anterolateral infarct , age undetermined Abnormal ECG Confirmed by ADONIS BLOOD MD ([id number]), editorial project manager RADHA FENG ([id number]) on 03/23/2018 2:26:11 PM Referred By: MIGUEL Confirmed By:ADONIS BLOOD MD 03/23/18 142 Date Adonis Blood MD CC: Sonja Edward MD; Prabhu Zuñiga MD; Sharri Lagos DO Signed ECHO, COMPLETE W/ Observed: 03/22/2018 Status: F Source: [place] CONTRAST 7:34 PM [facility] REPOSITORY [facility] Cardiovascular Services [address] [place] [address] Echo Complete W/ Contrast 03/21/18 0743 MR#: [id number] Acct: [id number] Name: CAMDEN HOLDER Rep #: [id number] : 1950 67 From: Wiliam Olivarez MD Attending Dr: Prabhu Zuñiga MD Status: DIS IN Ordering Dr: Prabhu Zuñiga MD Date: 03/20/18 Location: ICU Sex: M C Admitted: 03/21/18 Reason For Study: S/P AR Procedure This was a 2D Doppler, Color Flow transthoracic echocardiogram. The study was technically difficult. Contrast injection was performed. Exam performed portable in patient room. Left Ventricle Normal LV size. Mild segmental systolic dysfunction (see wall motion). The estimated ejection fraction is 45 %. Mid-Inferior: Hypokinetic. Mid-inferoseptal : Hypokinetic. Mid-anteroseptal : Hypokinetic. Anterior [place] : Hypokinetic. Inferior [place] : Akinetic. Lateral [place] : Hypokinetic. Septal [place] : Akinetic. Right Ventricle Normal RV size. Normal systolic function. Atria Normal left atrium. Normal right atrium. No doppler evidence for ASD. Mitral Valve There is mild to moderate mitral annular calcification. Extension of the mitral annular calcification onto the posterior mitral valve leaflet. Mild (1+) mitral valve insufficiency. Tricuspid Valve Normal tricuspid valve. Mild tricuspid valve insufficiency. Right ventricular systolic pressure estimated to be 18 mmHg. Aortic Valve Trisinus/trileaflet aortic valve. Mild focal aortic valve thickening. Trivial aortic valve insufficiency. Pulmonic Valve The pulmonic valve is not well visualized. Trivial pulmonic valve insufficiency. Great Vessels Normal sized aortic root. Pericardium/Pleural No pericardial effusion. Medication Diluted definity 3ml given slow IV push to enhance endocardial definition. MMode/2D Measurements AND Calculations LVIDd: 4.5 cm IVSd: 1.1 cm Ao root diam: 3.5 cm LVIDs: 3.3 cm LVPWd: 1.3 cm RVDd: 4.0 cm FS: 26.9 % LAV(MOD-bp): 67.4 ml EDV(MOD-sp4): 163.0 ml EDV(MOD-sp2): 138.1 ml LAV(MOD-bp) Indexed: 30.7 ml/m2 ESV(MOD-sp4): 95.0 ml EF(MOD-sp2): 44.0 % LAV(MOD-sp2): 81.6 ml EF(MOD-sp4): 41.8 % LAV(MOD-sp4): 52.5 ml SV(MOD-sp4): 68.1 ml SV(MOD-sp2): 60.8 ml LA A4 area: 19.2 cm2 LA dimension(2D): 5.1 cm RA A4 area: 14.8 cm2 Time Measurements MV dec time: 0.22 sec Doppler Measurements AND Calculations MV E max fazal: 112.6 cm/sec Lat Peak E' Fazal: 4.4 cm/sec Med Peak E' Fazal: 3.9 cm/sec MV A max fazal: 91.2 cm/sec E/E' lat: 25.6 E/E' med: 28.7 MV E/A: 1.2 Ao V2 max: 152.8 cm/sec LV V1 max: 99.0 cm/sec TR max fazal: 195.0 cm/sec Ao max P.3 mmHg LV V1 max P.9 mmHg TR max P.2 mmHg Ao V2 mean: 110.9 cm/sec LV V1 mean P.1 mmHg Ao mean P.4 mmHg LV V1 mean: 69.1 cm/sec Ao V2 VTI: 31.7 cm LV V1 VTI: 20.6 cm Interpretation Summary The study was technically difficult. Contrast injection was performed. Mild segmental systolic dysfunction (see wall motion). The estimated ejection fraction is 45 %. There is mild to moderate mitral annular calcification. Extension of the mitral annular calcification onto the posterior mitral valve leaflet. Mild (1+) mitral valve insufficiency. Mild tricuspid valve insufficiency. Mild focal aortic valve thickening. Trivial aortic valve insufficiency. Trivial pulmonic valve insufficiency. Right ventricular systolic pressure estimated to be 18 mmHg. Transmitral diastolic flow velocities suggest diastolic dysfunction (pseudonormal pattern). Ordering Physician: Prabhu Zuñiga Referring Physician: SONJA EDWARD Performed By: Sophia Pichardo, RDANURAG, RVT 03/22/181933 Date Wiliam Olivarez MD CC: Sonja Edward MD; Prabhu Zuñiga MD Date Dictated: 03/21/1843 Date Transcribed: 03/22/181933 Animal Scientist: Signed DISCHARGE SUMMARY Observed: 03/22/2018 Status: F Source: [place] 12:53 PM [facility] REPOSITORY [facility] Medical Records Department [address] [place], [place] [address] [address] Discharge Summary 03/22/18 1252 MR#: [id number] Acct: [id number] Name: CAMDEN HOLDER Rep #: [id number] : 1950 67 From: Prabhu Zuñiga MD PCP: Sonja Edward MD Status: ADM IN Y Location: ICU [id number] Discharge Date and Diagnosis - Problem List Patient Problems: Active and Suspected Problems NSTEMI (non-ST elevated myocardial infarction) (Acute) Date of Admission: 03/20/18 Date of Discharge: 03/22/18 - Primary Discharge Diagnosis Active and Suspected Problems NSTEMI (non-ST elevated myocardial infarction) (Acute) - Secondary Discharge Diagnosis Chronic Problems Hx of CABG (Chronic) CAD (coronary artery disease) (Chronic) HLD (hyperlipidemia) (Chronic) Carotid artery disease (Chronic) Post traumatic stress disorder (PTSD) (Chronic) Type 2 diabetes mellitus (Chronic) Neuropathy (Chronic) Obstructive sleep apnea (Chronic) Hypertension (Chronic) Restless legs syndrome (Chronic) Chronic headaches (Chronic) Numbness and tingling in right hand (Chronic) Hospital Course and Treatment Operations: None Summary of Care Provided: Patient is a 67-year-old gentleman with multiple comorbidities including CAD status post CABG in August 2017 presented with exertional dyspnea as well as chest pain. Patient was found to have elevated troponin on admission and assessment of unstable angina made admitted to a monitored bed for subsequent management 1. Acute N STEMI/unstable angina: Patient admitted to a monitored bed treatment initiated per protocol consisting of therapeutic Lovenox, beta-blockers, ARCADIO inhibitors and aspirin. Patient is not on statin therapy due to reported allergy. An echo was ordered for left ventricular function assessment and consultation placed to Dr. Olivarez. Patient underwent left heart catheterization on the morning of 03/21/2018 with PTCA/PHAN to his proximal OM 2 2. CAD with CABG in August 2017 requisition was placed to obtain old records from with [facility] in [place] 3. Diabetes mellitus type II: Placed on long acting insulin, Accu-Cheks a.c. and at bedtime and covered with sliding scale insulin 4. Persistent cough do suspect ARCADIO I induced cough plan is to switch to ARB prior to discharge 5. Dyslipidemia-patient is on gemfibrozil apparently allergic to statins, 6. GERD on PPI 7. Hypertension-blood pressure controlled, home medications continued with dose adjustment as needed 8. DVT prophylaxis patient is on therapeutic Lovenox Patient Problems: Active and Suspected Problems NSTEMI (non-ST elevated myocardial infarction) (Acute) - Physical Exam General: Alert HEENT: Atraumatic Neck: Supple Lungs: Normal air movement Cardiovascular: Regular rate, Regular Rhythm Neurological: Neuro grossly intact Psych/Mental Status: Normal Affect Vital Signs Temp Pulse Resp BP Pulse Ox 97.6 F L 85 25 H 104/51 L 93 03/22/18 12:00 03/22/18 12:00 03/22/18 12:00 03/22/18 12:00 03/22/18 12:00 Oxygen Flow Rate (L/min) 2 Oxygen Delivery Method Room Air Weight: 100.1 kg Body Mass Index (BMI) 31.6 Intake and Output for Last 24 Hours Intake Total 665 / 665 879 / 879 120 / 120 Output Total 250 / 250 1310 / 1310 120 / 120 Balance 415 / 415 -431 / -431 0 / 0 Laboratory Tests Past 24 Hrs WBC 9.1 RBC 4.65 Hgb 12.7 L POC Glucose POC Glucose 231 H 167 H 170 H POC Glucose 144 H 144 H Discharge Diet: Low fat/ Low Cholesterol Discharge Activity: Return to Normal Activity, May not drive while taking narcotic pain medications. Home Medications: Medications to take at Discharge Aspirin [Aspirin, Baby] 81 mg PO QODAY 11/21/14 Carbidopa/Levodopa 10/100 [Sinemet 10/100] 1 tablet PO QHS PRN 12/23/16 Dextrose [Glucose] 4 gm PO PRN PRN 12/23/16 Insulin Aspart [Novolog Flexpen] 20 units SC DINNER 12/23/16 Insulin Aspart [Novolog Flexpen] 24 units SC BREAKFAST 12/23/16 Insulin Aspart [Novolog Flexpen] 28 units SC LUNCH 12/23/16 Insulin Glargine [Lantus SoloStar Pen] 60 units SC BID 12/23/16 Multivitamin,Therapeutic [Thera] 1 each PO DAILY 12/23/16 Pregabalin [Lyrica] 150 mg PO Q8H 12/23/16 Pyridoxine HCl [Vitamin B-6] 100 mg PO DAILY 12/23/16 Thiamine HCl [Vitamin B-1] 100 mg PO DAILY 12/23/16 Ondansetron HCl [Zofran] 8 mg PO TID PRN #15 tablet 12/25/16 traZODone [Desyrel] 100 mg PO QHS PRN 03/18/17 Benzonatate [Tessalon Perle] 100 mg PO TID PRN 10/02/17 Fluticasone 0.05% [Flonase Nasal [place]] 2 spray NASAL BID PRN 10/02/17 Furosemide [Lasix] 20 mg PO DAILY 10/02/17 Lisinopril [Zestril] 10 mg PO DAILY 10/02/17 Potassium Chloride [K-Dur] 20 meq PO DAILY 10/02/17 Topiramate [Topamax] 150 mg PO QHS 10/02/17 Guaifenesin 400 mg PO Q4H PRN PRN 03/20/18 Lipase/Protease/Amylase [Creon Dr 24,000 Units Capsule] 2 capsule PO TIDCM 03/20/18 Metoprolol Tartrate 25 mg PO BID 03/20/18 Pantoprazole Sodium [Protonix] 40 mg PO BID 03/20/18 Rosuvastatin Calcium 40 mg PO QHS 03/20/18 Amlodipine [Norvasc] 2.5 mg PO DAILY #90 tablet 03/22/18 Clopidogrel Bisulfate [Plavix] 75 mg PO DAILY #90 tablet 03/22/18 Isosorbide Mononitrate [Imdur] 30 mg PO DAILY #90 tablet 03/22/18 Following Prescrptions Were Given to Patient: Amlodipine [Norvasc] 2.5 mg PO DAILY #90 tablet Clopidogrel Bisulfate [Plavix] 75 mg PO DAILY #90 tablet Isosorbide Mononitrate [Imdur] 30 mg PO DAILY #90 tablet Primary Care Physician: Sonja Edward MD [Primary Care Provider] - Please follow up with your Primary Care Physician in: in 5- 7 days Please Follow Up With: Wiliam Olivarez MD When: in 2-3 weeks Disposition: Home Minutes spent on discharge:: 43 Medical Necessity - Tobacco Use Smoking Status: Never smoker Meaningful Use Info Meaningful Use Diagnoses (Choose all that apply): AMI - AMI Aspirin given w/in 24hrs of arrival?: Yes ASA at discharge?: Yes Statins at discharge?: Yes Arcadio/ARB at discharge?: Yes Beta Danay at discharge?: Yes Done w/ Acute AR measure.: Yes Code Visit Inpatient E AND M: [id number] Disch Hosp 03/22/18 1253 <Electronically signed by Prabhu Zuñiga MD> Date Prabhu Zuñiga MD Cosigner Signature (if applicable): Date CC: Sonja Edward MD; Prabhu Zuñiga MD Signed DISCHARGE INSTRUCTION Observed: 03/22/2018 Status: F Source: [place] 12:52 PM [facility] REPOSITORY [facility] Medical Records Department [address] [place] [address] Instructions for Home/Discharge Instructions 03/22/18 1250 MR#: [id number] Acct: [id number] Name: CAMDEN HOLDER Rep #: [id number] : 1950 67 From: Prabhu Zuñiga MD PCP: Sonja Edward MD Status: ADM IN - Discharge Diagnoses Current Active Problems: Current Active and Chronic Problems Hx of CABG (Chronic) NSTEMI (non-ST elevated myocardial infarction) (Acute) CAD (coronary artery disease) (Chronic) HLD (hyperlipidemia) (Chronic) Carotid artery disease (Chronic) You will use the following diet at home:: Cardiac Discharge Activity: Return to Normal Activity, May not drive while taking narcotic pain medications. Allergies/Adverse Reactions: Allergies oxycodone [From OxyContin] Allergy (Verified 03/20/18 10:37) Shortness of breath atorvastatin [From Lipitor] Adverse Reaction (Verified 03/20/18 10:37) Other muscle weakness fish oil Adverse Reaction (Verified 03/20/18 10:37) Other muscle weakness morphine Adverse Reaction (Verified 03/20/18 10:37) Other MIGRAIN TAO Medications to take at Discharge Aspirin [Aspirin, Baby] 81 mg PO QODAY 11/21/14 Carbidopa/Levodopa 10/100 [Sinemet 10/100] 1 tablet PO QHS PRN 12/23/16 Dextrose [Glucose] 4 gm PO PRN PRN 12/23/16 Insulin Aspart [Novolog Flexpen] 20 units SC DINNER 12/23/16 Insulin Aspart [Novolog Flexpen] 24 units SC BREAKFAST 12/23/16 Insulin Aspart [Novolog Flexpen] 28 units SC LUNCH 12/23/16 Insulin Glargine [Lantus SoloStar Pen] 60 units SC BID 12/23/16 Multivitamin,Therapeutic [Thera] 1 each PO DAILY 12/23/16 Pregabalin [Lyrica] 150 mg PO Q8H 12/23/16 Pyridoxine HCl [Vitamin B-6] 100 mg PO DAILY 12/23/16 Thiamine HCl [Vitamin B-1] 100 mg PO DAILY 12/23/16 Ondansetron HCl [Zofran] 8 mg PO TID PRN #15 tablet 12/25/16 traZODone [Desyrel] 100 mg PO QHS PRN 03/18/17 Benzonatate [Tessalon Perle] 100 mg PO TID PRN 10/02/17 Fluticasone 0.05% [Flonase Nasal [place]] 2 spray NASAL BID PRN 10/02/17 Furosemide [Lasix] 20 mg PO DAILY 10/02/17 Lisinopril [Zestril] 10 mg PO DAILY 10/02/17 Potassium Chloride [K-Dur] 20 meq PO DAILY 10/02/17 Topiramate [Topamax] 150 mg PO QHS 10/02/17 Guaifenesin 400 mg PO Q4H PRN PRN 03/20/18 Lipase/Protease/Amylase [Creon Dr 24,000 Units Capsule] 2 capsule PO TIDCM 03/20/18 Metoprolol Tartrate 25 mg PO BID 03/20/18 Pantoprazole Sodium [Protonix] 40 mg PO BID 03/20/18 Rosuvastatin Calcium 40 mg PO QHS 03/20/18 Amlodipine [Norvasc] 2.5 mg PO DAILY #90 tablet 03/22/18 Clopidogrel Bisulfate [Plavix] 75 mg PO DAILY #90 tablet 03/22/18 Isosorbide Mononitrate [Imdur] 30 mg PO DAILY #90 tablet 03/22/18 The following prescriptions were given: Amlodipine [Norvasc] 2.5 mg PO DAILY #90 tablet Clopidogrel Bisulfate [Plavix] 75 mg PO DAILY #90 tablet Isosorbide Mononitrate [Imdur] 30 mg PO DAILY #90 tablet Primary Care Physician: Sonja Edward MD [Primary Care Provider] - Please follow up with your Primary Care Physician in: in 5- 7 days Test Results: Test results from this visit will be discussed in further detail at your follow-up appointment, if applicable. Please Follow Up With: Wiliam Olivarez MD When: in 2-3 weeks Proposed Discharge Date: 03/22/18 03/22/18 1252 <Electronically signed by Prabhu Zuñiga MD> Date Prabhu Zuñiga MD CC: Sonja Edward MD; Wiliam Olivarez MD BEDSIDE GLUCOSE Collected: 03/22/2018 Status: F Source: CAYLA 11:39 AM [facility] REPOSITORY TYPE CODE TESTS RESULT OUT OF REFERENCE UNITS RANGE LAB L501.080 70-110 mg/dL High BEDSIDE GLU 231 Result Comment: MANAGEMENT OF PATIENT CARE PER NURSING PROTOCOL Performed By: #### L501.080 #### [facility] Point of Care [address] [place] [address] BEDSIDE GLUCOSE Collected: 03/22/2018 Status: F Source: CAYLA 8:14 AM [facility] REPOSITORY TYPE CODE TESTS RESULT OUT OF REFERENCE UNITS RANGE LAB L501.080 70-110 mg/dL High BEDSIDE GLU 167 Result Comment: Dr Trejo Followed MANAGEMENT OF PATIENT CARE PER NURSING PROTOCOL Performed By: #### L501.080 #### [facility] Point of Care [address] [place] [address] BEDSIDE GLUCOSE Collected: 03/22/2018 Status: F Source: CAYLA 6:02 AM [facility] REPOSITORY TYPE CODE TESTS RESULT OUT OF REFERENCE UNITS RANGE LAB L501.080 70-110 mg/dL High BEDSIDE GLU 170 Result Comment: MANAGEMENT OF PATIENT CARE PER NURSING PROTOCOL Performed By: #### L501.080 #### [facility] Point of Care [address] [place] [address] CBC-COMPLETE BLOOD CNT Collected: 03/22/2018 Status: F Source: CAYLA NO DIFF 4:15 AM [facility] REPOSITORY TYPE CODE TESTS RESULT OUT OF RANGE REFERENCE UNITS LAB L100.1000 4.4-11.0 K/mm3 Normal WBC 9.1 LAB L100.1200 4.6-6.2 M/mm3 Normal RBC 4.65 LAB L100.1300 13.0-16.5 g/dl Low HGB 12.7 LAB L100.1400 40-54 % Low HCT 39.0 LAB L100.1500 80-94 fL Normal MCV 83.9 LAB L100.1600 27.0-32.0 pg Normal MCH 27.3 LAB L100.1700 32-36 g/gl Normal MCHC 32.6 LAB L100.1810 11.6-14.6 % High RDW CV 14.7 LAB L100.1820 35.1-43.9 fl High RDW SD 44.1 LAB L100.1900 150-450 K/mm3 Normal PLT 164 LAB L100.2000 6.2-12.0 fl Normal MPV 11.4 Performed By: #### L100.0500 #### [facility] [address] [place], [place], [address] BASIC METABOLIC Collected: 03/22/2018 Status: F Source: HOPE PROFILE ([facility]) 4:15 AM [facility] REPOSITORY TYPE CODE TESTS RESULT OUT OF RANGE REFERENCE UNITS LAB L501.0100 74-106 mg/dL High GLU 147 Result Comment: Fasting Glucose result greater than or equal to 126 mg/dL suggests DIABETES MELLITUS per A.D.A. criteria. Please note revised GLUCOSE reference range effective 2017. LAB L501.1000 7-18 mg/dL High BUN 28 LAB L501.1100 0.70-1.30 mg/dL High CREAT,SERUM 1.39 Result Comment: The validity of the calculated GFR AND GFRAA in patients over 70 years has not been determined. Clinical correlation is essential. LAB L501.1110 >60 mL/min Low EST GFR 54 Result Comment: Non- GFR Calc LAB L501.1115 >60 mL/min Normal EST GFR - AA 65 Result Comment: GFR Calc LAB L501.1255 ml/min Normal Estimated CRCL 51.79 LAB L501.1300 10-20 RATIO High BUN/CRE 20.1 LAB L501.2200 8.5-10 mg/dL Normal .1 CA 8.8 LAB L501.5300 136-14 mmol/L Normal 5 NA 137 LAB L501.5600 3.5-5. mmol/L Normal 1 K 4.3 LAB L501.5900 98-107 mmol/L Normal CL 106 LAB L501.6100 21.0-3 mmol/L Normal 2.0 CO2 21.0 LAB L501.6200 5-15 Normal GAP 10 Performed By: #### L500.2500, L500.4100 #### [facility] [address] [place], [place], [address] LIPID PROFILE Collected: 03/22/2018 Status: F Source: HOPE 4:15 AM [facility] REPOSITORY TYPE CODE TESTS RESULT OUT OF RANGE REFERENCE UNITS LAB L501.4900 200 mg/dL High CHOL 205 Result Comment: <200 mg/dL Desirable 200-240 mg/dL Borderline >240 mg/dL High Risk LAB L501.5000 mg/dL High TRIG 638 Result Comment: The drugs N-Acetylcysteine and Metamizole may falsely depress this assay. TRIGLYCERIDE IS GREATER THAN 400 mg/dL. LDL RESULT IS INVALID AND WILL NOT BE REPORTED. Serum Triglycerides Reference Interval Normal <150 mg/dL Borderline high 150 - 199 mg/dL High 200 - 499 mg/dL Very High > or = 500 mg/dL LAB L501.6400 mg/dL Low HDL 19 Result Comment: The drugs N-Acetylcysteine and Metamizole may falsely depress this assay. Reference Range HDL <40 mg/dL Low HDL Cholesterol HDL >or= 60 mg/dL High HDL Cholesterol LAB L501.6500 0-130 mg/dL Test Normal not performed LDL LAB L501.6600 5-40 mg/dL Test Normal not performed VLDL Performed By: #### L500.2500, L500.4100 #### [facility] [address] [place], [address] BEDSIDE GLUCOSE Collected: 03/21/2018 Status: F Source: CAYLA 9:08 PM [facility] REPOSITORY TYPE CODE TESTS RESULT OUT OF REFERENCE UNITS RANGE LAB L501.080 70-110 mg/dL High BEDSIDE GLU 144 Result Comment: MANAGEMENT OF PATIENT CARE PER NURSING PROTOCOL Performed By: #### L501.080 #### [facility] Point of Care [address] [place] [address] BEDSIDE GLUCOSE Collected: 03/21/2018 Status: F Source: CAYLA 4:00 PM [facility] REPOSITORY TYPE CODE TESTS RESULT OUT OF REFERENCE UNITS RANGE LAB L501.080 70-110 mg/dL High BEDSIDE GLU 144 Result Comment: MANAGEMENT OF PATIENT CARE PER NURSING PROTOCOL Performed By: #### L501.080 #### [facility] Point of Care [address] [place] [address] BEDSIDE GLUCOSE Collected: 03/21/2018 Status: F Source: CAYLA 11:38 AM [facility] REPOSITORY TYPE CODE TESTS RESULT OUT OF REFERENCE UNITS RANGE LAB L501.080 70-110 mg/dL High BEDSIDE GLU 159 Result Comment: MANAGEMENT OF PATIENT CARE PER NURSING PROTOCOL Performed By: #### L501.080 #### [facility] Point of Care [address] [place] [address] ACT ACTIVATED CLOTTING Collected: 03/21/2018 Status: F Source: CAYLA TIME 10:45 AM [facility] REPOSITORY TYPE CODE TESTS RESULT OUT OF RANGE REFERENCE UNITS LAB L9100.0100 74-137 sec High ACTk CLOT 175 TIME Performed By: #### L9100.0100 #### [facility] Point of Care [address] [place] [address] BEDSIDE GLUCOSE Collected: 03/21/2018 Status: F Source: CAYLA 6:50 AM [facility] REPOSITORY TYPE CODE TESTS RESULT OUT OF REFERENCE UNITS RANGE LAB L501.080 70-110 mg/dL High BEDSIDE GLU 165 Result Comment: Dr Orders Followed MANAGEMENT OF PATIENT CARE PER NURSING PROTOCOL Performed By: #### L501.080 #### [facility] Point of Care [address] [place] [address] CBC-COMPLETE BLOOD CNT Collected: 03/21/2018 Status: F Source: CAYLA NO DIFF 5:10 AM [facility] REPOSITORY TYPE CODE TESTS RESULT OUT OF RANGE REFERENCE UNITS LAB L100.1000 4.4-11.0 K/mm3 Normal WBC 9.1 LAB L100.1200 4.6-6.2 M/mm3 Normal RBC 5.05 LAB L100.1300 13.0-16.5 g/dl Normal HGB 13.6 LAB L100.1400 40-54 % Normal HCT 42.3 LAB L100.1500 80-94 fL Normal MCV 83.8 LAB L100.1600 27.0-32.0 pg Low MCH 26.9 LAB L100.1700 32-36 g/gl Normal MCHC 32.2 LAB L100.1810 11.6-14.6 % Normal RDW CV 14.4 LAB L100.1820 35.1-43.9 fl High RDW SD 44.2 LAB L100.1900 150-450 K/mm3 Normal PLT 174 LAB L100.2000 6.2-12.0 fl Normal MPV 11.6 Performed By: #### L100.0500 #### [facility] [address] [place], [address] PROTHROMBIN TIME W/INR Collected: 03/21/2018 Status: F Source: CAYLA 5:10 AM [facility] REPOSITORY TYPE CODE TESTS RESULT OUT OF RANGE REFERENCE UNITS LAB L300.4150 11.7-14.9 SECONDS Normal PROTIME 14.7 LAB L300.4200 Normal INR 1.2 Performed By: #### L300.3900, L300.4310 #### [facility] [address] [place], [address] PARTIAL THROMBOPLAST Collected: 03/21/2018 Status: F Source: HOPE TIME 5:10 AM [facility] REPOSITORY TYPE CODE TESTS RESULT OUT OF REFERENCE UNITS RANGE LAB L300.4310 24.1-36.2 Seconds High PTT 41.2 Performed By: #### L300.3900, L300.4310 #### [facility] [address] [place], [address] BASIC METABOLIC Collected: 03/21/2018 Status: F Source: HOPE PROFILE (BMP) 5:10 AM [facility] REPOSITORY TYPE CODE TESTS RESULT OUT OF RANGE REFERENCE UNITS LAB L501.0100 74-106 mg/dL High GLU 138 Result Comment: Fasting Glucose result greater than or equal to 126 mg/dL suggests DIABETES MELLITUS per A.D.A. criteria. Please note revised GLUCOSE reference range effective 2017. LAB L501.1000 7-18 mg/dL High BUN 24 LAB L501.1100 0.70-1.30 mg/dL Normal CREAT,SERUM 1.11 Result Comment: The validity of the calculated GFR AND GFRAA in patients over 70 years has not been determined. Clinical correlation is essential. LAB L501.1110 >60 mL/min Normal EST GFR 70 Result Comment: Non- GFR Calc LAB L501.1115 >60 mL/min Normal EST GFR - AA 84 Result Comment: GFR Calc LAB L501.1255 ml/min Normal Estimated CRCL 64.85 LAB L501.1300 10-20 RATIO High BUN/CRE 21.6 LAB L501.2200 8.5-10 mg/dL Normal .1 CA 8.9 LAB L501.5300 136-14 mmol/L Normal 5 NA 138 LAB L501.5600 3.5-5. mmol/L Normal 1 K 4.4 LAB L501.5900 98-107 mmol/L Normal CL 105 LAB L501.6100 21.0-3 mmol/L Normal 2.0 CO2 24.0 LAB L501.6200 5-15 Normal GAP 9 Performed By: #### L500.2500, L500.4100, L501.9520 #### [facility] [address] [place], [place], [id number] LIPID PROFILE Collected: 03/21/2018 Status: F Source: CAYLA 5:10 AM [facility] REPOSITORY TYPE CODE TESTS RESULT OUT OF RANGE REFERENCE UNITS LAB L501.4900 200 mg/dL High CHOL 222 Result Comment: <200 mg/dL Desirable 200-240 mg/dL Borderline >240 mg/dL High Risk LAB L501.5000 mg/dL High TRIG 617 Result Comment: The drugs N-Acetylcysteine and Metamizole may falsely depress this assay. TRIGLYCERIDE IS GREATER THAN 400 mg/dL. LDL RESULT IS INVALID AND WILL NOT BE REPORTED. Serum Triglycerides Reference Interval Normal <150 mg/dL Borderline high 150 - 199 mg/dL High 200 - 499 mg/dL Very High > or = 500 mg/dL LAB L501.6400 mg/dL Low HDL 20 Result Comment: The drugs N-Acetylcysteine and Metamizole may falsely depress this assay. Reference Range HDL <40 mg/dL Low HDL Cholesterol HDL >or= 60 mg/dL High HDL Cholesterol LAB L501.6500 0-130 mg/dL Test Normal not performed LDL LAB L501.6600 5-40 mg/dL Test Normal not performed VLDL Performed By: #### L500.2500, L500.4100, L501.9520 #### [facility] [address] [place], [place], [id number] THYROID STIM HORMONE Collected: 03/21/2018 Status: F Source: CAYLA (TSH) 5:10 AM [facility] REPOSITORY TYPE CODE TESTS RESULT OUT OF RANGE REFERENCE UNITS LAB L501.9520 0.358-3.74 uIU/mL Normal TSH 2.87 Performed By: #### L500.2500, L500.4100, L501.9520 #### [facility] [address] [place], [address] BEDSIDE GLUCOSE Collected: 03/20/2018 Status: F Source: HOPE 9:11 PM [facility] REPOSITORY TYPE CODE TESTS RESULT OUT OF REFERENCE UNITS RANGE LAB L501.080 70-110 mg/dL High BEDSIDE GLU 200 Result Comment: Dr Trejo Followed Insulin Given MANAGEMENT OF PATIENT CARE PER NURSING PROTOCOL Performed By: #### L501.080 #### [facility] Point of Care [address] [place] [address] CONSULTATION Observed: 03/20/2018 Status: F Source: HOPE 7:30 PM [facility] Medical Records Department [address] [place] [id number] Consultation 03/20/181919 MR#: [id number] Acct: [id number] Name: CAMDEN HOLDER Rep #: [id number] : 1950 67 From: Wiliam Olivarez MD PCP: Sonja Edward MD Status: ADM ENMANUEL Y Location: [place] [address] Problem List (1) NSTEMI (non-ST elevated myocardial infarction) Status: Acute (2) CAD (coronary artery disease) Status: Chronic (3) Hx of CABG Status: Chronic (4) HLD (hyperlipidemia) Status: Chronic (5) Hypertension Status: Chronic (6) Type 2 diabetes mellitus Status: Chronic (7) Carotid artery disease Status: Chronic Qualifiers: Laterality: bilateral Reason for Consult Date of Consultation: 03/20/18 History of Present Illness: The patient is a 67 year old white male with a past medical history of hyperlipidemia, hypertension, diabetes mellitus, CAD, status post CABG ([facility]: August 25, 2017: GARCIA to the LAD, SVG to the intermediate ramus, SVG to the posterior left ventricular branch), who presents for evaluation of chest discomfort and abnormal cardiac enzymes concerning for a non-ST segment elevation AR. The patient states that he has been having resting chest discomfort which he describes as sharp but burning. He has had discomfort over his xiphoid process area but also along his left sternal border to the left pectoral area. He has had shortness of breath and dyspnea. There has been no obvious nausea, emesis, or diaphoresis. There has been no near syncope or syncope. He does state that he has been coughing ever since his CABG in August of this year. He does not recall whether he has been on an ARCADIO inhibitor the entire time or not. He states when he does cough it can create a popping sensation near the tip of his xiphoid process. He states he has had no postoperative evaluation by the [facility] other than a postoperative office visit. Based upon his ongoing symptoms he presented to the hospital for further evaluation. He was noted to have indeterminate troponin I levels concerning for a non-ST segment elevation AR. His ECG demonstrated sinus rhythm with patterns compatible with a previous anterior AR of indeterminate age and inferior AR of indeterminate age. He is unaware of being told that he ever had an AR. He also states that he has been intolerant to lipid-lowering medication including statins and fish oil. [] Past Medical History Allergies/Adverse Reactions: Allergies oxycodone [From OxyContin] Allergy (Verified 03/20/18 10:37) Shortness of breath atorvastatin [From Lipitor] Adverse Reaction (Verified 03/20/18 10:37) Other muscle weakness fish oil Adverse Reaction (Verified 03/20/18 10:37) Other muscle weakness morphine Adverse Reaction (Verified 03/20/18 10:37) Other MIGRAIN TAO Home Medications: Ambulatory Orders Medication Instructions Recorded Past Medical History (Chronic Problems): Chronic Problems Hx of CABG (Chronic) CAD (coronary artery disease) (Chronic) HLD (hyperlipidemia) (Chronic) Carotid artery disease (Chronic) Post traumatic stress disorder (PTSD) (Chronic) Type 2 diabetes mellitus (Chronic) Neuropathy (Chronic) Obstructive sleep apnea (Chronic) Hypertension (Chronic) Restless legs syndrome (Chronic) Chronic headaches (Chronic) Numbness and tingling in right hand (Chronic) Surgical History: coronary bypass surgery, - - Ankle surgery, facial surgery secondary to accident Psychiatric History: Post traumatic stress - *Family History Maternal History Items: Cancer Paternal History Items: Stroke Smoking Status: Never smoker Alcohol: None Drugs: None Review of Systems - Review of Systems General: Denies: Fever, Night Sweats, Fatigue Cardiovascular: Reports: Chest Discomfort, Chest Discomfort at Rest, Shortness of Breath, Shortness of Breath at Rest. Denies: Orthopnea, PND, Peripheral Edema, Palpitations, Lightheadedness, Dizziness, Near Syncope, Syncope Respiratory: Reports: Cough, Non Productive Cough, Shortness of Breath. Denies: Sputum Production, Hemoptysis Gastrointestinal: Denies: Hematemesis, Hematochezia, Melena Genitourinary: Denies: Dysuria, Hematuria Skin: Denies: Rash Subjectve: This is a 67-year-old white male who appears to be resting comfortably at the moment in no acute distress. Objective: Vital Signs Temp Pulse Resp BP Pulse Ox 98.1 F 96 18 166/85 H 96 03/20/18 14:01 03/20/18 17:00 03/20/18 18:23 03/20/18 14:01 03/20/18 18:23 Oxygen Flow Rate (L/min) 2 Oxygen Delivery Method Room Air Weight: 220 lb 10.923 oz Body Mass Index (BMI) 31.6 Intake and Output for Last 24 Hours Intake Total 350 / 350 Balance 350 / 350 General: Awake, Alert, Oriented x 3, Cooperative, No Acute Distress HEENT: Atraumatic, Normocephalic, PERRL Oral: Moist Mucosa Neck: Supple, Good ROM, No JVD Lungs: Clear to auscultation Cardiovascular: Regular Rhythm, Normal S1, Normal S2 Vascular: Naveen Carotid Artery Bruits Abdomen: Bowel Sounds Present, Soft, Non Tender Extremities: No Cyanosis, No Clubbing, No edema Neurological: No Focal Motor or Sensory Deficit Psych/Mental Status: Appropriate 03/20/18 10:33: WBC 8.3, RBC 4.82, Hgb 13.3, Hct 40.7, MCV 84.4, MCH 27.6, MCHC 32.7, RDW 14.7 H, RDW Differential 44.3 H, Plt Count 174, MPV 12.3 H, Immature Gran % (Auto) 0.700, Neut % (Auto) 62.7, Lymph % (Auto) 27.0, [place] % (Auto) 7.4, Eos % (Auto) 1.7, Baso % (Auto) 0.5, Absolute Neuts (auto) 5.2, Total Counted Not Reportable 03/20/18 10:33: D-Dimer Quant (PE/DVT) 2.83 H* 03/20/18 10:33: Sodium 134 L, Potassium 4.5, Chloride 102, Carbon Dioxide 23.0, Anion Gap 9, BUN 32 H, Creatinine 1.34 H, Est GFR (MDRD) Af Amer 68, Est GFR (MDRD) Non-Af 56 L, BUN/Creatinine Ratio 23.9 H, Glucose 383 H, Calcium 9.2, Troponin I 0.231 H 03/20/18 14:00: Troponin I 0.209 H 03/20/18 16:30: Troponin I 0.253 H Rhythm: Sinus rhythm EKG: As noted above ECHO: [facility]: 08/25/2017: Left ventricle: Normal with an LVEF of 55-60% CT Surgery: [facility]: 08/25/2017: GARCIA to the LAD; SVG to the intermediate ramus; SVG to the posterior left ventricular branch CXR: Postoperative surgical changes; no acute cardiopulmonary disease reported Chest CT Scan: No acute great vessel disease reported Assessment/Plan 1. Non-ST segment elevation AR The patient has chest discomfort, history of CAD status post CABG, and now with indeterminate troponin I levels otherwise unexplained concerning for a non- ST segment elevation AR. The present time he is continuing to be monitored. This will include cardiac enzyme follow-up, ECG follow-up, all as deemed appropriate. He will continue medical therapy. This will include aspirin, the addition of antiplatelets, nitrates as needed, the addition of beta-blockers, and lipid- lowering agents if tolerated. It is been recommended the patient be considered for further evaluation with diagnostic cardiac catheterization. The procedure and risks were discussed with the patient and his family members present. He was agreeable to this approach. 2. CAD status post CABG Again the patient has ongoing concerns of chest discomfort and indeterminate troponin I levels. He will continue evaluation care as noted above. 3. Hyperlipidemia The patient states he is intolerant to statins and fish oil. Hopefully he will be tolerant to some form of lipid-lowering therapy which may benefit his cardiovascular status. 4. Hypertension The patient will need continued medical management as deemed appropriate. Depending upon the patient's clinical course, if he has been on an ARCADIO inhibitor and there is concern his cough may be related to an ARCADIO inhibitor, then will need to be discontinued and he will need to attempt alternative antihypertensive therapy. 5. Diabetes mellitus He will continue under the care of internal medicine. 6. Carotid artery disease He does have bilateral carotid artery bruits. He has had a carotid artery duplex study performed at the [facility]. Per the reports available for review the right carotid artery was reported as mild in the left carotid artery was reported as moderate. He will need continued risk factor evaluation care as deemed appropriate. Comment: The patient's case was discussed and reviewed with patient, his family members present, and Dr. Zuñiga of the [facility] staff. This note was generated with [employer] software. It may contain incorrect words, spelling, and punctuation that were not noted in checking the note before signing. 03/20/181929 <Electronically signed by Wiliam Olivarez MD> Date Wiliam Olivarez MD Cosigner Signature (if applicable): Date CC: Sonja Edward MD; Wiliam Olivarez MD Signed BEDSIDE GLUCOSE Collected: 03/20/2018 Status: F Source: HOPE 5:49 PM [facility] REPOSITORY TYPE CODE TESTS RESULT OUT OF REFERENCE UNITS RANGE LAB L501.080 70-110 mg/dL High BEDSIDE GLU 330 Result Comment: MANAGEMENT OF PATIENT CARE PER NURSING PROTOCOL Performed By: #### L501.080 #### [facility] Point of Care [address] [place] [address] TROPONIN-I Collected: 03/20/2018 Status: F Source: HOPE 4:30 PM [facility] REPOSITORY Order Comment: 'TROP' Serial specimen #1, #2 or #3: 3 TYPE CODE TESTS RESULT OUT OF RANGE REFERENCE UNITS LAB L501.4010 <0.045 ng/mL High 0.253 TROPONIN-I Result Comment: TROPONIN-I EXPECTED VALUES <0.045 Negative 0.045 - 0.590 Consistent with Cardiac Damage > OR = 0.600 Critical Value Not every elevated troponin is indicative of AR. These values should be used with clinical judgement in examining the patient's clinical picture for diagnosis. To establish a diagnosis of AR versus myocardial injury, there must be a demonstrated rise and/or fall in the troponin values, in addition to ischemic symptoms, EKG changes, new regional wall motion abnormality, and/or angiographical evidence. PLEASE NOTE: REFERENCE RANGES EDITED 17 Performed By: #### L501.4010 #### [facility] [address] [place], [address] TROPONIN-I Collected: 03/20/2018 Status: F Source: HOPE 2:00 PM [facility] REPOSITORY Order Comment: 'TROP' Serial specimen #1, #2 or #3: 2 TYPE CODE TESTS RESULT OUT OF RANGE REFERENCE UNITS LAB L501.4010 <0.045 ng/mL High 0.209 TROPONIN-I Result Comment: TROPONIN-I EXPECTED VALUES <0.045 Negative 0.045 - 0.590 Consistent with Cardiac Damage > OR = 0.600 Critical Value Not every elevated troponin is indicative of AR. These values should be used with clinical judgement in examining the patient's clinical picture for diagnosis. To establish a diagnosis of AR versus myocardial injury, there must be a demonstrated rise and/or fall in the troponin values, in addition to ischemic symptoms, EKG changes, new regional wall motion abnormality, and/or angiographical evidence. PLEASE NOTE: REFERENCE RANGES EDITED 17 Performed By: #### L501.4010 #### [facility] [address] [facility] [place], [address] HISTORY AND PHYSICAL Observed: 03/20/2018 Status: F Source: HOPE EXAM 1:44 PM [facility] REPOSITORY [facility] Medical Records Department [address] [facility] [place] [address] History and Physical 03/20/18 1322 MR#: [id number] Acct: [id number] Name: CAMDEN HOLDER Rep #: [id number] : 1950 67 From: Prabhu Zuñiga MD PCP: Sonja Edward MD Status: ADM ENMANUEL Y Location: PCU [id number] Problem List (1) Chest pain Status: Acute (2) Numbness and tingling in right hand Status: Chronic (3) Pancreatitis Status: Resolved (4) Chronic headaches Status: Chronic (5) Hypertension Status: Chronic (6) Neuropathy Status: Chronic (7) Obstructive sleep apnea Status: Chronic (8) Post traumatic stress disorder (PTSD) Status: Chronic (9) Restless legs syndrome Status: Chronic (10) Type 2 diabetes mellitus Status: Chronic (11) Hx of CABG Status: Chronic History of Present Illness Date of Admission: 03/20/18 Chief Complaint: Chest discomfort The patient is a 67 year old M with past medical history cigar for CAD status post CABG in August 2017 at [facility] in [place] who presented with chest discomfort. Patient reports weeks of intermittent chest discomfort similar to what he experienced prior to his bypass. Patient in addition did complain of shortness of breath with activity as well as persistent cough. He presented to the emergency department in view of the progressive nature of his symptoms. Patient was found to have slightly elevated troponin and an elevated d-dimer. Underwent CTA of the chest which was negative for PE no dissection. Treatment initiated in the ED with therapeutic Lovenox and patient admitted to a monitored bed for subsequent evaluation and management. Past Medical History Past Medical History (Chronic Problems): Chronic Problems Hx of CABG (Chronic) Post traumatic stress disorder (PTSD) (Chronic) Type 2 diabetes mellitus (Chronic) Neuropathy (Chronic) Obstructive sleep apnea (Chronic) Hypertension (Chronic) Restless legs syndrome (Chronic) Chronic headaches (Chronic) Numbness and tingling in right hand (Chronic) Allergies oxycodone [From OxyContin] Allergy (Verified 03/20/18 10:37) Shortness of breath atorvastatin [From Lipitor] Adverse Reaction (Verified 03/20/18 10:37) Other muscle weakness fish oil Adverse Reaction (Verified 03/20/18 10:37) Other muscle weakness morphine Adverse Reaction (Verified 03/20/18 10:37) Other MIGRAIN TAO Home Medications: Ambulatory Orders Medication Instructions Recorded Surgical History: - - Ankle surgery, facial surgery secondary to accident Psychiatric History: Post traumatic stress Smoking Status: Never smoker - *Family History Maternal History Items: Cancer Paternal History Items: Stroke Review of Systems Constitutional: Denies: Anorexia, Chills, Fever, Night Sweats, Weight Change HEENT: Reports: Sinus Congestion. Denies: Head Aches, Sinus Drainage Cardiovascular: Reports: Chest Pain. Denies: Orthopnea, Palpitations, Paroxysmal Noc. Dyspnea Respiratory: Reports: Cough, Shortness of Breath. Denies: Shortness of breath at rest, Shortness of breath upon exertion, Sputum production Gastrointestinal: Denies: Abdominal Pain, Hematemesis, Hematochezia, Nausea, Melena, Vomiting Genitourinary: Denies: Dysuria, Frequency, Hematuria, Urgency Musculoskeletal: Denies: Joint Pain, Joint Tenderness Skin: Denies: Rash Neurological: Denies: Focal weakness, Numbness, Tingling Psychiatric: Denies: Homicidal Ideations, Suicidal Ideations Hematologic/ Lymphatic: Denies: Easy Bruising, Easy Bleeding VTE Information - Inpt Only VTE Present on Admission: No VTE Mechan Device Prophylaxis: Knee High WILFREDO Hose VTE Pharm Prophylaxis ordered?: Yes Objective: GENERAL: cooperative HEENT: Atraumatic; moist oral mucosa EYES; Anicteric, Normal Conjunctiva NECK; supple, normal thyroid, no distended JVD. RESPIRATORY: Diminished to auscultation bilaterally, CARDIOVASCULAR: Regular S1 S2, no audible murmurs GI: soft, non-tender, normoactive bowel sounds, : No Renal angle tenderness; EXTREMITIES: No edema, no clubbing, no cyanosis. MUSCULOSKELETAL: No Joint Tenderness; no muscle waisting NEURO: Awake; no lateralizing signs. SKIN: No Rash PSYCH; Normal affect - Physical Exam Vital Signs Temp Pulse Resp BP Pulse Ox 97.7 F L 80 20 H 174/85 H 97 03/20/18 10:31 03/20/18 13:15 03/20/18 10:31 03/20/18 13:15 03/20/18 10:31 Oxygen Flow Rate (L/min) 2 Oxygen Delivery Method Nasal Cannula Weight: 101.9 kg Body Mass Index (BMI) 32.2 Laboratory Tests Past 24 Hrs Assessment/Plan All Active Problems Chest pain (Acute) Pancreatitis (Resolved) Patient is a 67-year-old gentleman with multiple comorbidities including CAD status post CABG in August 2017 presented with exertional dyspnea as well as chest pain. Patient was found to have elevated troponin on admission and assessment of unstable angina made admitted to a monitored bed for subsequent management 1. Acute N STEMI/unstable angina: Patient admitted to a monitored bed treatment initiated per protocol consisting of therapeutic Lovenox, beta-blockers, ARCADIO inhibitors and aspirin. Patient is not on statin therapy due to reported allergy. An echo was ordered for left ventricular function assessment and consultation placed to Dr. Olivarez 2. CAD with CABG in August 2017 requisition was placed to obtain old records from with [facility] 3. Diabetes mellitus type II: Placed on long acting insulin, Accu-Cheks a.c. and at bedtime and covered with sliding scale insulin 4. Persistent cough do suspect ARCADIO I induced cough plan is to switch to ARB prior to discharge 5. Dyslipidemia-patient is on gemfibrozil apparently allergic to statins, 6. GERD on PPI 7. Hypertension-blood pressure controlled, home medications continued with dose adjustment as needed 8. DVT prophylaxis patient is on therapeutic Lovenox Code Visit OBSV E AND M: [id number] Initial observation care L3 03/20/18 1344 <Electronically signed by Prabhu Zuñiga MD> Date Prabhu Zuñiga MD Cosigner Signature: Date (if applicable) CC: Sonja Edward MD; Prabhu Zuñiga MD Signed EMERGENCY DEPARTMENT Observed: 03/20/2018 Status: F Source: HOPE SUMMARY 12:58 PM [facility] REPOSITORY [facility] Medical Records Department [address] [place] [address] Emergency Department Summary 03/20/18 1255 MR#: [id number] Acct: [id number] Name: CAMDEN HOLDER Rep #: [id number] : 1950 67 From: Sharri Lagos DO PCP: Sonja Edward MD Status: REG ER - ER Visit Summary Date of Service: 03/20/18 Chief Complaint: [Chest pain] History of Present Illness: The patient is a 67 M [presents the emergency department complaint chest pain that started 3 or 4 days ago. Patient describes intermittent burning and stabbing in the retrosternal area and left chest. Patient denies any radiation of the pain. He denies any diaphoresis although he has had nausea and also complains of shortness of breath. Patient states the pain typically is brought on by activity and exertion. Patient had similar pains prior to requiring three-vessel CABG in August 2017. Patient denies recent travel or surgery. Patient is not on any blood thinners other than baby aspirin daily. Patient also has history of pancreatitis. Patient is a diabetic and history of hypertension.] Physical Examination: HEENT-PERRLA, EOMI. Cranial nerves II through XII grossly intact. TMs clear. Mucous membranes moist. No adenopathy. Cardiovascular-regular rate and rhythm without murmur or ectopy Lungs-clear to auscultation, chest wall stable without crepitus or subcu emphysema Abdomen-normoactive bowel sounds, soft, nontender, no rebound or rigidity, no peritoneal signs. Extremities-intact 4, normal range of motion, normal pulses, atraumatic [] Test Results: [EKG obtained arrival shows sinus rhythm with a ventricular rate of 95 bpm with old inferior anterior infarct noted. When compared with prior EKG from October 02, 2017 no significant changes noted. See with it was unremarkable. Chemistries unremarkable. Troponin was elevated 0.231. D-dimer was elevated 2.83. CT of the chest obtained showed no PE or dissection. Chest x-ray was unremarkable.] Emergency Department Course and Treatment: [Patient received aspirin in the emergency department as well as sublingual nitro which mostly resolved his pain. Patient had an inch of Nitropaste placed to the anterior chest wall. Patient was given a dose of Lovenox subcu.] Patient does not want to be transferred to the ID and would prefer to remain at [place]. Treatment Plan: [Admit for further workup and evaluation. I discussed case with hospitalist who asked that I discussed case with cardiology. I was told solar electric installer on-call is currently in a procedure performing a heart catheterization but I did inform them that he would be consulted on the case.] Disposition: [Admit] Impression: [Chest pain Non-ST elevation AR] This note was generated with Dabble dictation software. It may contain incorrect words, spelling, and punctuation that were not noted in review of the chart prior to signing ED Disposition - Plan for ED Patient: Chief Complaint: Chest Pain Referrals: Sonja Edward MD [Primary Care Provider] - What to do if you have Problems For any increased pain, shortness of breath, bleeding, nausea or vomiting, chest pain, or any unexpected problems, contact your Primary Care Provider. Call [facility] ([phone]) or report to the closest Emergency Room. Call 911 if necessary. 03/20/18 1254 <Electronically signed by Sharri Lagos DO> Date Sharri Lagos DO Cosigner Signature (If Indicated): Date CC: Sonja Edward MD CTA CHEST W/WO Observed: 03/20/2018 Status: F Source: CAYLA CONTRAST 11:06 AM [facility] REPOSITORY [facility] Imaging Services [address] [place] [address] CTA Chest W/WO Contrast MR#: [id number] Acct: [id number] Name: CAMDEN HOLDER Rep #: [id number] : 1950 67 From: Checo Ball MD PCP: Sonja Edward MD Status: REG ER Study: CTA Chest W/WO Contrast Date of Exam: 03/20/18 Exam# [id number] Ordering Dr: Sharri Lagos DO STUDY: CTA CHEST REASON FOR EXAM: Male, 67 years old. 2 day history of chest pain. Elevated d-dimer. RADIATION DOSAGE (If Supplied By Facility): CTDIvol = ( 17.65 ) mGy, DLP = ( 668.68 ) mGycm TECHNIQUE: The examination was performed with the intravenous administration of 100ml ml of Isovue 370 contrast material. Post-processing of the angiographic images was performed, with multiplanar reformation and 3D reconstruction. Individualized dose optimization techniques were used for this CT. COMPARISON: Comparison is made with prior study dated October 03, 2017. FINDINGS: Small bilateral axillary lymph nodes. Normal enhancement of the main pulmonary artery and right and left pulmonary arteries. Normal enhancement of the bilateral peripheral pulmonary arteries. There is no demonstrated pulmonary embolism. Normal thoracic aorta and visualized great vessels. There is no demonstrated aortic dissection. Sternal cerclage wires and vascular clips are present from a prior sternotomy and coronary artery bypass graft procedure (CABG). There are visualized mediastinal lymph nodes, which are within normal size limits, and with normal morphology. Normal hilar regions. Normal visualized trachea and bronchi. The lungs are well expanded. Stable minimal increased markings at the lung bases. Normal pleura. Normal chest wall structures. There are degenerative changes of thoracic spine. The patient is status post cholecystectomy. CT/CTA Chest W/WO Contrast IMPRESSION: Normal CTA chest examination, without a demonstrated pulmonary embolism or arterial dissection. Electronically Signed: Checo Ball MD at 12:46 EST Tel [phone], Service support , CC: Sonja Edward MD; Sharri Lagos DO Animal Scientist: Signed CHEST 1 VIEW Observed: 03/20/2018 Status: F Source: HOPE (PORTABLE) 10:42 AM [facility] REPOSITORY [facility] Imaging Services [address] [place] [address] Chest 1 View (Portable) MR#: [id number] Acct: [id number] Name: CAMDEN HOLDER Rep #: [id number] : 1950 M 67 From: Checo Ball MD PCP: Sonja Edward MD Status: REG ER Study: Chest 1 View (Portable) Date of Exam: 03/20/18 Exam# [id number] Ordering Dr: Sharri Lagos DO STUDY: X-RAY CHEST REASON FOR EXAM: Male, 67 years old. Chest pain. Prior CABG. TECHNIQUE: Single AP portable view of the chest. COMPARISON: Comparison is made with prior study dated October 02, 2017. FINDINGS: EKG electrodes are seen. Stable mild increased markings in the lingular segment of the left upper lobe suggestive of scarring. There is no demonstrated pleural abnormality. Sternal cerclage wires and vascular clips are present from a prior sternotomy and coronary artery bypass graft procedure (CABG). Moderate cardiomegaly. Normal mediastinum and sade. Normal visualized pulmonary arteries. Normal visualized aortic arch and descending thoracic aorta. Normal visualized thoracic spine. Normal visualized ribs, clavicles, and shoulders. There is no demonstrated abnormality of the visualized soft tissue structures of the upper abdomen. RAD/Chest 1 View (Portable) IMPRESSION: Cardiomegaly. No acute abnormality is seen. Electronically Signed: Checo Ball MD at 11:14 EST Tel [phone], Service support , CC: Sonja Edward MD; Sharri Lagos DO Animal Scientist: Signed CBC W/DIFF, AUTOMATED Collected: 03/20/2018 Status: F Source: CAYLA 10:33 AM [facility] REPOSITORY TYPE CODE TESTS RESULT OUT OF RANGE REFERENCE UNITS LAB L100.1000 4.4-11.0 K/mm3 Normal WBC 8.3 LAB L100.1200 4.6-6.2 M/mm3 Normal RBC 4.82 LAB L100.1300 13.0-16.5 g/dl Normal HGB 13.3 LAB L100.1400 40-54 % Normal HCT 40.7 LAB L100.1500 80-94 fL Normal MCV 84.4 LAB L100.1600 27.0-32.0 pg Normal MCH 27.6 LAB L100.1700 32-36 g/gl Normal MCHC 32.7 LAB L100.1810 11.6-14.6 % High RDW CV 14.7 LAB L100.1820 35.1-43.9 fl High RDW SD 44.3 LAB L100.1900 150-450 K/mm3 Normal PLT 174 LAB L100.2000 6.2-12.0 fl High MPV 12.3 LAB L100.2100 47-70 % Normal NEUT% 62.7 LAB L100.2200 19-41 % Normal LY% 27.0 LAB L100.2300 0-10 % Normal MONO% 7.4 LAB L100.2400 0-5 % Normal EO% 1.7 LAB L100.2500 0-1 % Normal BASO% 0.5 LAB L100.2550 0.0-0.9 % Normal IM GRAN % 0.700 Result Comment: IG% - Immature Granulocytes (promyelocytes, myelocytes and metamyelocytes) > 1% indicates that a LEFT SHIFT is Present. LAB L100.2620 2.0-7.7 X10 3/uL Normal Absolute Neut 5.2 LAB L100.2720 0.83-4.51 X10 3/ul Normal Absolute Lymph 2.25 Performed By: #### L100.0100 #### [facility] [address] [facility] [place], [place], [id number] D-DIMER QUANTITATIVE Collected: 03/20/2018 Status: F Source: CAYLA (DVT/PE) 10:33 AM [facility] REPOSITORY TYPE CODE TESTS RESULT OUT OF RANGE REFERENCE UNITS LAB L300.8000 0.27-0.49 FEU/ug/m High alert D-DIMER 2.83 QUANT Result Comment: D-Dimer ELEVATED (>0.49): Additional studies and clinical assessments are indicated to conclude diagnosis of: Deep Vein Thrombosis (DVT) or Pulmonary Embolism (PE) CRITICAL VALUE VERIFIED. CALLED TO NEISHA EGAN 03/20/18 Estephania Ghosh. RESULTS READ BACK BY SAME . Performed By: #### L300.8000 #### [facility] [address] [place], [place], [address] BASIC METABOLIC Collected: 03/20/2018 Status: F Source: CAYLA PROFILE (BMP) 10:33 AM [facility] REPOSITORY TYPE CODE TESTS RESULT OUT OF RANGE REFERENCE UNITS LAB L501.0100 74-106 mg/dL High GLU 383 Result Comment: Glucose result greater than or equal to 200 mg/dL suggests DIABETES MELLITUS per A.D.A. criteria. Please note revised GLUCOSE reference range effective 2017. LAB L501.1000 7-18 mg/dL High BUN 32 LAB L501.1100 0.70-1.30 mg/dL High CREAT,SERUM 1.34 Result Comment: The validity of the calculated GFR AND GFRAA in patients over 70 years has not been determined. Clinical correlation is essential. LAB L501.1110 >60 mL/min Low EST GFR 56 Result Comment: Non- GFR Calc LAB L501.1115 >60 mL/min Normal EST GFR - AA 68 Result Comment: GFR Calc LAB L501.1255 ml/min Normal Estimated CRCL 53.72 LAB L501.1300 10-20 RATIO High BUN/CRE 23.9 LAB L501.2200 8.5-10 mg/dL Normal .1 CA 9.2 LAB L501.5300 136-14 mmol/L Low 5 NA 134 LAB L501.5600 3.5-5. mmol/L Normal 1 K 4.5 Result Comment: Slight Hemolysis, Result may be falsely increased. LAB L501.5900 98-107 mmol/L Normal CL 102 LAB L501.6100 21.0-32.0 mmol/L Normal CO2 23.0 LAB L501.6200 5-15 Normal 9 GAP Performed By: #### L500.2500, L501.4010 #### [facility] [address] [place], [place], [address] TROPONIN-I Collected: 03/20/2018 Status: F Source: HOPE 10:33 AM [facility] REPOSITORY TYPE CODE TESTS RESULT OUT OF RANGE REFERENCE UNITS LAB L501.4010 <0.045 ng/mL High 0.231 TROPONIN-I Result Comment: TROPONIN-I EXPECTED VALUES <0.045 Negative 0.045 - 0.590 Consistent with Cardiac Damage > OR = 0.600 Critical Value Not every elevated troponin is indicative of AR. These values should be used with clinical judgement in examining the patient's clinical picture for diagnosis. To establish a diagnosis of AR versus myocardial injury, there must be a demonstrated rise and/or fall in the troponin values, in addition to ischemic symptoms, EKG changes, new regional wall motion abnormality, and/or angiographical evidence. PLEASE NOTE: REFERENCE RANGES EDITED 17 Performed By: #### L500.2500, L501.4010 #### [facility] [address] [place], [address] 12 LEAD ELECTROCARDIOGRAM Observed: 10/04/2017 Status: F Source: CAYLA 3:39 PM [facility] REPOSITORY [facility] Cardiovascular Services [address] [place] [address] 12 Lead EKG 10/02/172136 MR#: [id number] Acct: [id number] Name: CAMDEN HOLDER Rep #: [id number] : 1950 67 From: Adonis Blood MD Attending Dr: Status: DEP ER Ordering Dr: Scott Bains MD Date: 10/02/17 Location: ED Sex: M C Admitted: Test Reason : CP Blood Pressure : / mmHG Vent. Rate : 085 BPM Atrial Rate : 085 BPM P-R Int : 168 ms QRS Dur : 098 ms QT Int : 386 ms P-R-T Axes : 035 -38 034 degrees QTc Int : 459 ms Normal sinus rhythm Left axis deviation Low voltage QRS Inferior infarct , age undetermined Anterolateral infarct , age undetermined Abnormal ECG Confirmed by ADONIS BLOOD MD ([id number]), editorial project manager RADHA FENG ([id number]) on 10/04/2017 3:39:02 PM Referred By: OSMIN Confirmed By:ADONIS BLOOD MD 10/04/17 1539 Date Adonis Blood MD CC: Scott Bains MD; Sonja Edward MD Signed EMERGENCY DEPARTMENT Observed: 10/03/2017 Status: F Source: CAYLA SUMMARY 7:29 AM [facility] REPOSITORY [facility] Medical Records Department [address] [place] [address] Emergency Department Summary 10/02/172201 MR#: [id number] Acct: [id number] Name: CAMDEN HOLDER Rep #: [id number] : 1950 67 From: Scott Bains MD PCP: Sonja Edward MD Status: DEP ER - ER Visit Summary Date of Service: 10/02/17 Chief Complaint: Chest pain History of Present Illness: The patient is a 67 M with chest pain that started at 8:30 PM tonight. The patient has a history of coronary disease and had a CABG just over 1 month ago at the [facility]. He does not know the surgeon's name. He has been doing well, walking a mile a day. The pain started tonight at 830 and is new. It lasts for a few seconds at a time, it is sharp, and it is over his left chest only. No other associated symptoms. No history of DVT. Physical Examination: Afebrile and vitals unremarkable. Patient sitting comfortably. Skin appears normal without pallor or diaphoresis. Heart regular rate and rhythm. Lungs clear. Calves soft and supple. Pulses strong and equal. Test Results: EKG showed sinus rhythm at a rate of 85. Nonspecific ST and T-wave changes. No acute ischemia or infarction pattern. Labs and chest x-ray are pending. Emergency Department Course and Treatment: Patient was placed on a monitor. He received aspirin. Will await results. Patient had continued episodes of pain. I did witness an episode. He coughs and then has sudden left-sided chest pain that lasts a few seconds, almost like a spasm. His workup here was fairly unremarkable. Hemoglobin slightly down at 10.9. BUN 28 and creatinine 1.45, slightly up. Coags normal. Troponin normal. Chest x-ray showed a widened mediastinum and so a CT was done. This showed no evidence of PE or dissection. He has some mediastinal lymph nodes, bilateral bronchiectasis, and atelectasis. Patient did not know the name of his doctor. I explained that I would normally like to speak with the surgeon for follow-up. He will call for follow-up in the morning. I do not think this is a surgical complication. His workup here was unremarkable. He is doing well and his vitals are unremarkable. He will return if he has any new or worsening issues. Treatment Plan: As above Disposition: Discharged Impression: 1. Chest pain unclear etiology This note was generated with Citrix Onlineation software. It may contain incorrect words, spelling, and punctuation that were not noted in review of the chart prior to signing ED Disposition - Plan for ED Patient: Chief Complaint: Chest Pain Referrals: Luther Edward MD [STAFF PHYSICIAN] - What to do if you have Problems For any increased pain, shortness of breath, bleeding, nausea or vomiting, chest pain, or any unexpected problems, contact your Primary Care Provider. Call [facility] ([phone]) or report to the closest Emergency Room. Call 911 if necessary. 10/03/17728 <Electronically signed by Scott Bains MD> Date Scott Bains MD Cosigner Signature (If Indicated): Date CC: Sonja Edward MD DISCHARGE INSTRUCTION Observed: 10/03/2017 Status: F Source: HOPE 7:29 AM [facility] Medical Records Department [address] [place] [address] Discharge Instruction 10/03/173 MR#: [id number] Acct: [id number] Name: CAMDEN HOLDER Rep #: [id number] : 1950 67 From: Scott Bains MD PCP: Sonja Edward MD Status: DEP ER ED Disposition - Plan for ED Patient: Chief Complaint: Chest Pain Instructions: ED Chest Pain Atypical Unkn Cause Prescriptions: Hydrocodone Bitart/Apap 5-325 [[place] 5MG-325MG] 1 tab PO Q6H PRN PRN 3 Days #12 tab PRN Reason: Pain Referrals: Luther Edward MD [STAFF PHYSICIAN] - What to do if you have Problems For any increased pain, shortness of breath, bleeding, nausea or vomiting, chest pain, or any unexpected problems, contact your Primary Care Provider. Call [facility] ([phone]) or report to the closest Emergency Room. Call 911 if necessary. 10/03/17728 <Electronically signed by Scott Bains MD> Date Scott Bains MD Cosigner Signature (If Indicated): Date CC: Sonja Edward MD CTA CHEST W/WO Observed: 10/02/2017 Status: F Source: CAYLA CONTRAST 11:47 PM [facility] REPOSITORY [facility] Imaging Services [address] [place] [address] CTA Chest W/WO Contrast MR#: [id number] Acct: [id number] Name: CAMDEN HOLDER Rep #: [id number] : 1950 M 67 From: Rivera Sims PCP: Sonja Edward MD Status: REG ER Study: CTA Chest W/WO Contrast Date of Exam: 10/03/17 Exam# [id number] Ordering Dr: Scott Bains MD STUDY: CTA CHEST REASON FOR EXAM: Male, 67 years old. Cough, sharp chest pain. Postop total bypass surgery August 15, 2017. RADIATION DOSAGE (If Supplied By Facility): CTDIvol = ( 16.51 ) mGy, DLP = ( 680.74 ) mGycm TECHNIQUE: The examination was performed with the intravenous administration of 100ML ml of Isovue 370 contrast material. Post-processing of the angiographic images was performed, with multiplanar reformation and 3D reconstruction. Individualized dose optimization techniques were used for this CT. COMPARISON: November 21, 2014. Chest x-ray October 02, 2017. FINDINGS: Normal enhancement of the main pulmonary artery and right and left pulmonary arteries. Normal enhancement of the bilateral peripheral pulmonary arteries. There is no demonstrated pulmonary embolism. Normal thoracic aorta and visualized great vessels. There is no demonstrated aortic dissection. Normal heart and pericardium. Scattered subcentimeter lymph nodes which are not pathologic by size criteria. Single mildly enlarged 1.3 cm prevascular lymph node unchanged. Normal hilar regions. Normal visualized trachea and bronchi. Bilateral lower lobe bronchiectasis. Bilateral lower lobe subsegmental atelectasis. Normal pulmonary parenchyma. Normal pleura. Sternal wires and surgical clips are present compatible with CABG. Mild degenerative changes of the thoracic spine. Mild loss of vertebral body height in several lower thoracic vertebral bodies which have remained stable. Normal visualized upper abdomen. CT/CTA Chest W/WO Contrast IMPRESSION: No pulmonary embolus or thoracic aortic dissection. Mildly enlarged mediastinal lymph nodes unchanged. Bilateral lower lobe bronchiectasis and subsegmental atelectasis. Electronically Signed: Rivera Sims MD at 1:37 EDT , Service support , CC: Scott Bains MD; Snoja Edward MD Animal Scientist: Signed CBC W/DIFF, AUTOMATED Collected: 10/02/2017 Status: F Source: CAYLA 10:10 PM [facility] REPOSITORY TYPE CODE TESTS RESULT OUT OF RANGE REFERENCE UNITS LAB L100.1000 4.4-11.0 K/mm3 Normal WBC 8.0 LAB L100.1200 4.6-6.2 M/mm3 Low RBC 4.12 LAB L100.1300 13.0-16.5 g/dl Low HGB 10.9 LAB L100.1400 40-54 % Low HCT 34.9 LAB L100.1500 80-94 fL Normal MCV 84.7 LAB L100.1600 27.0-32.0 pg Low MCH 26.5 LAB L100.1700 32-36 g/gl Low MCHC 31.2 LAB L100.1810 11.6-14.6 % Normal RDW CV 14.6 LAB L100.1820 35.1-43.9 fl High RDW SD 45.4 LAB L100.1900 150-450 K/mm3 Normal PLT 270 LAB L100.2000 6.2-12.0 fl Normal MPV 10.7 LAB L100.2100 47-70 % Low NEUT% 44.1 LAB L100.2200 19-41 % High LY% 43.3 LAB L100.2300 0-10 % Normal MONO% 9.7 LAB L100.2400 0-5 % Normal EO% 1.6 LAB L100.2500 0-1 % Normal BASO% 0.4 LAB L100.2550 0.0-0.9 % Normal IM GRAN % 0.900 Result Comment: IG% - Immature Granulocytes (promyelocytes, myelocytes and metamyelocytes) > 1% indicates that a LEFT SHIFT is Present. LAB L100.2620 2.0-7.7 X10 3/uL Normal Absolute Neut 3.5 LAB L100.2720 0.83-4.51 X10 3/ul Normal Absolute Lymph 3.44 Performed By: #### L100.0100 #### [facility] [address] [place], [address] BASIC METABOLIC Collected: 10/02/2017 Status: F Source: HOPE PROFILE (BMP) 10:10 PM [facility] REPOSITORY TYPE CODE TESTS RESULT OUT OF RANGE REFERENCE UNITS LAB L501.0100 74-106 mg/dL High GLU 274 Result Comment: Glucose result greater than or equal to 200 mg/dL suggests DIABETES MELLITUS per A.D.A. criteria. Please note revised GLUCOSE reference range effective 2017. LAB L501.1000 7-18 mg/dL High BUN 28 LAB L501.1100 0.70-1.30 mg/dL High CREAT,SERUM 1.45 Result Comment: The validity of the calculated GFR AND GFRAA in patients over 70 years has not been determined. Clinical correlation is essential. LAB L501.1110 >60 mL/min Low EST GFR 51 Result Comment: Non- GFR Calc LAB L501.1115 >60 mL/min Normal EST GFR - AA 62 Result Comment: GFR Calc LAB L501.1255 ml/min Normal Estimated CRCL 49.65 LAB L501.1300 10-20 RATIO Normal BUN/CRE 19.3 LAB L501.2200 8.5-10 mg/dL Normal .1 CA 9.1 LAB L501.5300 136-14 mmol/L Low 5 NA 135 LAB L501.5600 3.5-5. mmol/L Normal 1 K 3.8 LAB L501.5900 98-107 mmol/L Normal CL 103 LAB L501.6100 21.0-3 mmol/L Normal 2.0 CO2 26.0 LAB L501.6200 5-15 Normal GAP 6 Performed By: #### L500.2500, L501.4010 #### [facility] [address] [place], [address] TROPONIN-I Collected: 10/02/2017 Status: F Source: CAYLA 10:10 PM [facility] REPOSITORY TYPE CODE TESTS RESULT OUT OF RANGE REFERENCE UNITS LAB L501.4010 <0.045 ng/mL Normal < 0.015 TROPONIN-I Result Comment: TROPONIN-I EXPECTED VALUES <0.045 Negative 0.045 - 0.590 Consistent with Cardiac Damage > OR = 0.600 Critical Value Not every elevated troponin is indicative of AR. These values should be used with clinical judgement in examining the patient's clinical picture for diagnosis. To establish a diagnosis of AR versus myocardial injury, there must be a demonstrated rise and/or fall in the troponin values, in addition to ischemic symptoms, EKG changes, new regional wall motion abnormality, and/or angiographical evidence. PLEASE NOTE: REFERENCE RANGES EDITED 17 Performed By: #### L500.2500, L501.4010 #### [facility] [address] [place], [address] PROTHROMBIN TIME W/INR Collected: 10/02/2017 Status: F Source: CAYLA 10:10 PM [facility] REPOSITORY TYPE CODE TESTS RESULT OUT OF RANGE REFERENCE UNITS LAB L300.4150 11.7-14.9 SECONDS High PROTIME 15.5 LAB L300.4200 Normal INR 1.2 Performed By: #### L300.3900, L300.4310 #### [facility] [address] [place], [address] PARTIAL THROMBOPLAST Collected: 10/02/2017 Status: F Source: CAYLA TIME 10:10 PM [facility] REPOSITORY TYPE CODE TESTS RESULT OUT OF REFERENCE UNITS RANGE LAB L300.4310 24.1-36.2 Seconds High PTT 36.5 Performed By: #### L300.3900, L300.4310 #### [facility] [address] [place], [address] CHEST 1 VIEW Observed: 10/02/2017 Status: F Source: CAYLA (PORTABLE) [facility] Imaging Services [address] [place] [address] Chest 1 View (Portable) MR#: [id number] Acct: [id number] Name: CAMDEN HOLDER Rep #: [id number] : 1950 M 67 From: Devaughn Deshpande MD PCP: Sonja Edward MD Status: REG ER Study: Chest 1 View (Portable) Date of Exam: 10/02/17 Exam# [id number] Ordering Dr: Scott Bains MD STUDY: X-RAY CHEST REASON FOR EXAM: Male, 67 years old. Chest pain and cough TECHNIQUE: Portable COMPARISON: December 01, 2014 FINDINGS: The lungs are clear and expanded. There is no demonstrated pleural abnormality. Heart is enlarged. There is asymmetric mediastinal widening on the left. Normal visualized pulmonary arteries. Normal visualized aortic arch and descending thoracic aorta. Normal visualized thoracic spine. Normal visualized ribs, clavicles, and shoulders. Postop changes status post median sternotomy and CABG. There is no demonstrated abnormality of the visualized soft tissue structures of the upper abdomen. RAD/Chest 1 View (Portable) IMPRESSION: Heart is enlarged and asymmetric left mediastinal widening. . Possibility of mediastinal mass or aneurysmal excluded. CT would be helpful for further evaluation Electronically Signed: Devaughn Deshpande MD at 22:43 EDT , Service support , CC: Scott Bains MD; Sonja Edward MD Animal Scientist: Signed ALLERGIES ALLERGIES DATE TYPE / CODE NAME / CODE REACTION SEVERITY SOURCE 04/23/2018 Drug morphine/F00 Other Unknown [facility] Rep[facility] CT) 04/23/2018 Drug oxycodone/F0 Shortness of Unknown [facility] Allergy/4160 88622521(RXN breath Hospital 13966(SNOMED ORM) Repository CT) 04/23/2018 Drug atorvastatin Other Unknown [facility] Allergy/4160 /[id number]( Hospital 04175(SNOMED RXNORM) Repository CT) 04/23/2018 Drug fish Other Unknown [facility] Allergy/4160 oil/Z0757824 Hospital 37713(SNOMED 67(RXNORM) Repository CT) ENCOUNTERS ENCOUNTERS ADMIT/DISCHARGE ACCOUNT ADMITTING ENCOUNTER LOCATION SOURCE NUMBER CLASS 05/09/2018 [id number] Ambulatory [place] [facility] ing:CR Repository 05/01/2018 [id number] Ambulatory [place] [facility] ing:CVS Repository 04/26/2018 [id number] Ambulatory [place] 4 [facility] ing:CR Repository 04/23/2018/ [id number] Ambulatory BMSBuilding:B [place] 9 6 [facility] Repository 04/11/2018 [id number] Ambulatory BMSBuilding:B [place] 2 [facility] Repository 03/21/2018 [id number] Prabhu Zuñiga Ambulatory BMSBuilding:B [place] 8 [facility] Repository 03/21/2018 [id number] Prabhu Zuñiga Ambulatory BMSBuilding:B [place] 5 MS.[facility] Repository 03/21/2018/ [id number] Prabhu Zuñiga Inpatient [place] 8 0 Encounter [facility] ing:ICURoom: Repository [id number]: 1 03/21/2018 [id number] Prabhu Zuñiga Ambulatory BMSBuilding:B [place] 7 [facility] Repository 03/21/2018 [id number] Prabhu Zuñiga Ambulatory BMSBuilding:B [place] 7 [facility] Repository 03/20/2018 [id number] Prabhu Zuñiga Ambulatory BMSBuilding:B [place] 4 [facility] Repository 03/20/2018 [id number] Prabhu Zuñiga Ambulatory BMSBuilding:B [place] 9 MS.[facility] Repository 10/02/2017/ [id number] Emergency [place] 5 [facility] ing:ED Repository PAYERS PAYERS ENCOUNTER GUARANTOR PAYER SUBSCRIBER SOURCE 05/09/2018 CAMDEN HOLDER218 Primary Insurance:[place] CAMDEN ASHRAFB: [facility] [id number] [facility] [address]Qev: Number: [facility] [id number] Repository (HP) Date:9935-26-85TES SERVICE [id number] [place], [place] [address]KD: [phone] X2003 05/09/2018 Secondary CAMDEN ASHRAFB: [place] Insurance:AENA [id number] [facility] Rep[facility] Date:9554-46-71JU [id number] [place] [address]SD: 05/09/2018 Tertiary Insurance:SELF NOT GIVENUNK [facility] Number: Effective Hospital Date:2018-04-26 Repository 05/01/2018 CAMDEN HOLDER218 Primary Insurance:AETNA [facility]SHRAFB[facility] Number: [id number] [facility] [address]Npx: [facility]QQ[facility] Date:1393-53-19GK BOX Repository () [address] [address]QC: 05/01/2018 Secondary NOT GIVENUNK [place] Insurance:SELF PAY [facility] INSURANCEPolicy Number: Hospital Effective Repository Date:2018-04-23 04/26/2018 CAMDEN HOLDER218 Primary Insurance:AETNA CAMDEN Howard PASCALEB: [facility] Number: [id number] [facility] [address]Ouk: [facility]QQ[facility] Date:1073-91-88BZ BOX Repository () [address] [address]PM: 04/26/2018 Secondary Insurance:[place] CAMDEN ASHRAFB: [facility] [id number] Community Number: Hospital [id number] Repository Date:3513-76-36ACD SERVICE [id number] [place], [place] [address]NJ: [phone] X2003 04/26/2018 Tertiary Insurance:SELF NOT GIVENUNK [place] [facility]: Effective Hospital Date:2018-03-26 Repository 04/23/2018 CAMDEN Howard [id number] Primary Insurance:[place] CAMDEN Lawrence [facility]ASCALEB: [facility] [id number] Health [facility] [address]Sat: Number: Hospital [id number] Repository () Date:7800-76-80OAY SERVICE [id number] [place], [place] [address]ER: [phone] X2003 04/23/2018 Secondary CAMDEN Lawrence PASCALEB: [place] Insurance:AET [id number] Community HospitalPolicy Number: [facility] [id number] Repository Date:9926-78-64IN [facility] [address] [address]EF: 04/23/2018 Tertiary CAMDEN Lawrence PASCALEB: [place] Insurance:MEDICARE PART [id number] [facility] BPolicy Number: [facility] [id number] Repository Date:2018-03-22 04/23/2018 Tertiary Insurance:SELF NOT GIVENUNK [place] [facility] Number: Effective Hospital Date:2018-04-23 Repository 04/11/2018 CAMDEN HOLDER218 Primary Insurance:ID CAMDEN Howard PASCALEB: [facility] [id number] Health [facility] [address]Azh: Number: [facility] [id number] Repository (HP) Date:8039-70-70WYQ SERVICE [id number] [place], [place] [address]JK: [phone] X2003 04/11/2018 Secondary CAMDEN Howard PASCALEB: [place] Insurance:AETNA [id number] Community HospitalPolicy Number: Hospital [id number] Repository Date:5166-19-23WZ [address] [place] QUIROZ [address]SW: 04/11/2018 Tertiary Insurance:SELF NOT GIVENUNK [place] [facility] Number: Effective Hospital Date:2018-04-11 Repository 03/21/2018 CAMDEN Lawrence [id number] Primary Insurance:ID CAMDEN Lawrence NOEDOB: [facility] [id number] Health Wayne [address]Nyk: Number: Hospital [id number] Repository (HP) Date:2000-11-19CLI SERVICE [id number] [place], [place] [address]AI: [phone] 03/21/2018 Secondary CAMDEN Lawrence NOEDOB: [place] Insurance:AETNA [id number] Dix Hospitalicy Number: [facility] [id number] Repository Date:9880-16-53YZ [address] [place] [address]SY: 03/21/2018 Tertiary Insurance:SELF NOT GIVENUNK [place] [facility] Number: Effective Hospital Date:2018-03-21 Repository 03/21/2018 CAMDEN Howard [id number] Primary Insurance:ID CAMDEN Lawrence GLORYDOB: [facility] [id number] Health [facility] [address]Unq: Number: [facility] [id number] Repository (HP) Date:3986-73-09ALY SERVICE [id number] [place], [place] [address]BM: [phone] 03/21/2018 Secondary CAMDEN Lawrence NOEDOB: [place] Insurance:AETNA [id number] Community HospitalPolicy Number: [facility] [id number] Repository Date:0910-40-34KV [address] [address]ZK: 03/21/2018 Tertiary Insurance:SELF NOT GIVENUNK [place] [facility]Y [facility] Number: Effective Hospital Date:2018-03-21 Repository 03/21/2018 CAMDEN Lawrence [id number] Primary Insurance:[place] CAMDEN HOLDERDOB: [facility] [id number] [facility] [address]Pbq: Number: Hospital [id number] Repository () Date:0272-71-65BAJ SERVICE [id number] [place], [place] [address]IA: [phone] X2003 03/21/2018 Secondary CAMDEN Lawrence NOEDOB: [place] Insurance:AETNA [id number] Community HospitalPolicy Number: [facility] [id number] Repository Date:6286-00-85LM [address] [place] [address]XE: 03/21/2018 Tertiary Insurance:SELF NOT GIVENUNK [place] PAY [facility] Number: Effective Hospital Date:2018-03-20 Repository 03/21/2018 CAMDEN HOLDER218 Primary Insurance:[place] CAMDEN HOLDERDOB: [facility] [id number] Health [facility] [address]Tmg: Number: Hospital [id number] Repository (HP) Date:0727-83-79TUS SERVICE [id number] [place], [place] [address]LB: [phone] X2003 03/21/2018 Secondary CAMDEN Lawrence NOEDOB: [place] Insurance:AENA [id number] Community HospitalPolicy Number: Hospital [id number] Repository Date:9615-63-26IO [address] [address]MY: 03/21/2018 Tertiary Insurance:SELF NOT GIVENUNK [place] [facility] Number: Effective Hospital Date:2018-03-21 Repository 03/21/2018 CAMDEN HOLDER218 Primary Insurance:[place] CAMDEN HOLDERDOB: [facility] [id number] Health [facility] [address]Dyf: Number: Hospital [id number] Repository (HP) Date:5639-66-45GUF SERVICE [id number] [place], [place] [address]OK: [phone] x2003 03/21/2018 Secondary CAMDEN Lawrence NOEDOB: [place] Insurance:AETNA [id number] [facility] Number: [facility] [id number] Repository Date:2016-36-30ZW [address] [place] [address]DO: 03/21/2018 Tertiary Insurance:SELF NOT GIVENUNK [place] PAY [facility] Number: Effective Hospital Date:2018-03-21 Repository 03/20/2018 CAMDEN F [id number] Primary Insurance:[place] CAMDEN HOLDERDOB: [facility] [id number] [place] [address]Mdc: Number: [facility] [id number] Repository (HP) Date:4913-96-08URL SERVICE [id number] [place], [place] [address]CJ: [phone] x2003 03/20/2018 Secondary CAMDEN Lawrence NOEDOB: [place] Insurance:AETNA [id number] Regional Medical Center Number: [facility] [id number] Repository Date:1630-63-05KR [address] [address]UD: 03/20/2018 Tertiary Insurance:SELF NOT GIVENUNK [place] PAY [facility] Number: Effective Hospital Date:2018-03-20 Repository 03/20/2018 CAMDEN F [id number] Primary Insurance:[place] CAMDEN Lawrence GLORYDOB: [facility] [id number] [place] [address]Oqb: Number: [facility] [id number] Repository () Date:8894-17-95MKB SERVICE [id number] [place], [place] [address]UA: [phone] x2003 03/20/2018 Secondary CAMDEN Lawrence NOEDOB: [place] Insurance:AETNA [id number] Community MCRPolicy Number: Hospital [id number] Repository Date:2438-39-99[address] [place] QUIRO[place] [address]WN: 03/20/2018 Tertiary Insurance:SELF NOT GIVENUNK [place] PAY INSURANCEPolicy Community Number: Effective Hospital Date:2018-03-20 Repository 10/02/2017 Mariah Daly Primary Insurance:NEELIMA ASHRAFB: [place] Isp[address] [place] MCRPolicy Number: [id number] [facility] HospitalBLSXQQEffective [facility] [address]Khu: (330) Date:9903-74-11BP BOX Repository [phone] () [address]94[address]PWANDREAS VIVAR [address]SQ: 10/02/2017 Secondary NOT GIVENUNK [place] Insurance:SELF PAY Community INSURANCEPolicy Number: Hospital Effective Repository Date:2017-10-02
== END 2018-05-17 23:59 ==
LOC: CR 10:15
PROVIDERS: Family Provider Family Medicine; PCP Family Medicine; Referring Provider Internal Medicine Cardiovascular Disease; Visit Provider Internal Medicine Cardiovascular Disease
DX: I21.4 Non-ST elevation (NSTEMI) myocardial infarction (principal); Z95.5 Presence of coronary angioplasty implant and graft
CPT/HCPCS: 93798

== ENCOUNTER 2018-06-13 10:15 | Outpatient (RCR) | payer MEDICARE, SELFPAY ==
[2018-03-21 13:40] VITALS: BMI 31.6
[2018-04-26 10:46] VITALS: BMI 31.5
[2018-05-28 10:25] VITALS: BP 142/68; BP 170/74
--- NOTE | 2018-05-28 10:25 | CR.ITP_ITS ---
Exercise - 30-day Assessment - Visit Date of Eval: 05/28/18 Session #:: 9 - Stages of Change Stages of Change:: Action - Exercise Prescription Mode:: Treadmill, Airdyne, NuStep Frequency (x/week): 3 Duration:: 30-45 METs - Progression: 0.5-1 MET as tolerated: 3.1 Target Heart Rate:: 105-112 w/max HR 108 - Hypertension Resting Blood Pressure:: 142/68 Peak Exercise Blood Pressure:: 170/74 Medication Changes:: No - Intervention Home Exercise/Activity Goal:: Sitting Time <3 hrs/day - Education Goals:: Warm-up, RPE SHERIF Scale, S/S, Safe Exercise, Self-Monitoring - Exercise Program Goals Exercise Program Goals: Aerobic Activity >30 min, B/P <130/80 Nutrition - Initial Assessment - Program Goals Nutrition Program Goals: LDL <70. Total Cholesterol <200. HDL >45. Triglycerides <150. HgbA1C <7%. BMI <25 - Diabetes Do you monitor your blood sugar at home?: Yes Nutrition - 30-Day Assessment - Program Goals Nutrition Program Goals: LDL <70. Total Cholesterol <200. HDL >45. Triglycerides <150. HgbA1C <7%. BMI <25 - Visit Date of Eval: 05/28/18 - Lipids Has the patient seen the dietitian?: No - Diabetes Diabetes:: No - Weight Management Weight:: 221 lb 8 oz - Intervention Referral to dietitian:: No Referral to Diabetic Clinic:: No Will attend diet classes:: Yes - Education Attended class for:: Healthy eating Tobacco - Initial Assessment - Program Goals Tobacco Program Goals: Complete smoking cessation. Attend education classes. Improve Knowledge Test score - Learning Barriers Learning Barriers: Hearing, Vision - bilateral cataract removal , Ready to Learn Tobacco - 30-Day Assessment - Program Goals Tobacco Program Goals: Complete smoking cessation. Attend education classes. Improve Knowledge Test score - Stage of Change Stages of Change:: Action - Learning Barriers Learning Barriers: Participates in education - Family Support Do you have family support?: Yes - Tobacco Use Tobacco Use: Non-smoker Do you use smokeless tobacco?: No - Intervention Education Schedule Given:: Yes - Education Attended class for:: Coronary artery disease, Risk factors, Sexuality, Medical compliance, Cardiac A&P, Angina signs & symptoms Psychosocial - Initial Assess - Target Goals Target Goals: Assess presence or absence of depression. Using a valid screening tool, maximizes coping skills. Positive support system - Psychosocial Test Tool Used:: HANDS Depression Questionnaire - Assistive Devices Fall Risk Assessed:: Yes Psychosocial - 30-Day Assess - Target Goals Target Goals: Assess presence or absence of depression. Using a valid screening tool, maximizes coping skills. Positive support system - Stages of Change Stages of Change:: Action - Psychosocial Test Tool Used:: HANDS Depression Questionnaire - Intervention PS - Interventions: Yes Attend Stress Management Classes, No Referral to Mental Health, No Referral to [facility] Case Management, No Referral to Physician, No Uses Stress Management Skills - Education Attended classes for:: Coping techniques, Signs & symptoms of depression, Stress management, Relaxation techniques - Patient/Program Goal Preventative Medication(s):: Aspirin, Clopidogrel, Beta yonatan, Statin/lipid - Assistive Devices Assistive Devices:: None Fall Risk Assessed:: Yes Patient Health Questionnaire 30-Day Re-eval Assessment 1. Little interest or pleasure in doing things: Several days 2. Feeling down, depressed, or hopeless: Not at all 3. Trouble falling or staying asleep, or sleeping too much: Not at all 4. Feeling tired or having little energy: Several days 5. Poor appetite or overeating: Several days 6. Feeling bad about yourself -- or that you are a failure or have let yourself or your family down: Not at all 7. Trouble concentrating on things, such as reading the newspaper or watching television: Not at all 8. Moving or speaking so slowly that other people could have noticed. Or the opposite - being so fidgety or restless that you have been moving around a lot more than usual: Not at all 9. Thoughts that you would be better off , or of hurting yourself in some way: Not at all Total Score: 3 Self-Efficacy 30-Day Re-eval Assessment We would like to know how confident you are in doing certain activities. Please select your confidence level for:: Select your confidence level for the following using the scale 1-10 where 1 is not at all confident and 10 is totally confident. Your score is the average of all 6 responses. Fatigue: How confident are you that you can keep the fatigue caused by your disease from interfering with the things you want to do? Select Number: 9 Physical Discomfort or Pain: How confident are you that you can keep the physical discomfort or pain of your disease from interfering with the things you want to do? Select Number: 10 Emotional Distress: How confident are you that you can keep the emotional distress caused by your disease from interfering with the things you want to do? Select Number: 10 Other Symptoms or Health Problems: How confident are you that you can keep other symptoms or health problems from interfering with the things you want to do? Select Number: 9 Different Tasks and Activities: How confident are you that you can do the different tasks and activities needed to manage your health condition so as to reduce your need to see a doctor? Select Number: 9 Medication: How confident are you that you can do things other than just taking medication to reduce how much your illness affects your everyday life? Select Number: 9 Total Score:: 9
== END 2018-06-14 23:59 ==
LOC: CR 10:15
PROVIDERS: Family Provider Family Medicine; PCP Family Medicine; Referring Provider Internal Medicine Cardiovascular Disease; Visit Provider Internal Medicine Cardiovascular Disease
DX: I21.4 Non-ST elevation (NSTEMI) myocardial infarction (principal); Z95.5 Presence of coronary angioplasty implant and graft
CPT/HCPCS: 93798

== ENCOUNTER 2018-06-22 10:15 | Outpatient (RCR) | payer MEDICARE, SELFPAY ==
[2018-03-21 13:40] VITALS: BMI 31.6
[2018-04-26 10:46] VITALS: BMI 31.5
[2018-06-15 01:20] VITALS: BP 142/68; BP 170/74
--- NOTE | 2018-06-22 08:09 | CR.ITP_ITS ---
General Information - General Information Admitting Diagnosis: coronary angioplasty and graft - Education/Goals Cardiac Rehabilitation Goals: 1. Maintain the individual as the primary focus of care. 2. To improve the patient's quality of life. 3. Identification of cardiac risk factors and provide cardiac risk factor management. 4. Enhance the psychosocial status of the patient. 5. Reconditioning enough to allow the patient to resume customary activities. 6. Control symptoms of cardiac disease Scale for measuring improvement of personal goals: Enter appropriate number in Comments. 2 = Unchanged. 3 = Slightly Better. 4 = Moderate Improvement. 5 = Met my Goal Exercise - 60-Day Assessment - Visit Date of Eval: 06/22/18 Session #:: 19 - Stages of Change Stages of Change:: Action - Physician Prescribed Exercise Modalities: Treadmill, Airdyne, NuStep Intensity: 60-80% age predicted maximum heart rate reserve METs - Progression: 0.5-1.0 MET, RPE 11-14 WEEK: 4 Target Heart Rate:: 105-112 - Hypertension Resting Blood Pressure:: 144/70 Peak Exercise Blood Pressure:: 192/80 - Intervention Home Exercise/Activity Goal:: Moderate Exercise 30 min/day x 5 days/wk - Exercise Program Goals Exercise Program Goals: Aerobic Activity >30 min, B/P <130/80 Nutrition - Initial Assessment - Program Goals Nutrition Program Goals: LDL <70. Total Cholesterol <200. HDL >45. Triglycerides <150. HgbA1C <7%. BMI <25 - Diabetes Do you monitor your blood sugar at home?: Yes Nutrition - 60-Day Assessment - Program Goals Nutrition Program Goals: LDL <70. Total Cholesterol <200. HDL >45. Triglycerides <150. HgbA1C <7%. BMI <25 - Visit Date of Eval: 06/22/18 - Stages of Change Stages of Change:: Action - Diabetes Diabetes:: Yes Random Blood Glucose:: 138 - Weight Management Weight:: 100.924 kg - Intervention Referral to dietitian:: No Referral to Diabetic Clinic:: No Will attend diet classes:: Yes - Education Attended class for:: Signs & symptoms of hypoglycemia, Signs & symptoms of hyperglycemia, Relate diabetes to coronary artery disease, Healthy eating Tobacco - Initial Assessment - Program Goals Tobacco Program Goals: Complete smoking cessation. Attend education classes. Improve Knowledge Test score - Learning Barriers Learning Barriers: Hearing, Vision - bilateral cataract removal , Ready to Learn Tobacco - 60-Day Assessment - Program Goals Tobacco Program Goals: Complete smoking cessation. Attend education classes. Improve Knowledge Test score - Stage of Change Stages of Change:: Action - Learning Barriers Learning Barriers: Participates in education - Family Support Do you have family support?: Yes - Tobacco Use Do you use smokeless tobacco?: No - Intervention Smoking Cessation Referral:: No Individual Education/Counseling:: No Education Schedule Given:: Yes - Education Attended class for:: Tobacco triggers, Coronary artery disease, Risk factors, Sexuality, Medical compliance, Cardiac A&P, Angina signs & symptoms Psychosocial - 60-Day Assess - Target Goals Target Goals: Assess presence or absence of depression. Using a valid screening tool, maximizes coping skills. Positive support system - Stages of Change Stages of Change:: Action - Psychosocial Test Tool Used:: HANDS Depression Questionnaire - Intervention PS - Interventions: Yes Attend Stress Management Classes, Yes Uses Stress Management Skills, No Referral to Mental Health, No Referral to [facility] Case Management, No Referral to Physician - Education Attended classes for:: Coping techniques, Signs & symptoms of depression, Stress management, Relaxation techniques - Assistive Devices Assistive Devices:: None Fall Risk Assessed:: Yes Patient Health Questionnaire 60-Day Re-eval Assessment 1. Little interest or pleasure in doing things: Several days 2. Feeling down, depressed, or hopeless: Not at all 3. Trouble falling or staying asleep, or sleeping too much: Not at all 4. Feeling tired or having little energy: Several days 5. Poor appetite or overeating: Several days 6. Feeling bad about yourself -- or that you are a failure or have let yourself or your family down: Not at all 7. Trouble concentrating on things, such as reading the newspaper or watching television: Not at all 8. Moving or speaking so slowly that other people could have noticed. Or the opposite - being so fidgety or restless that you have been moving around a lot more than usual: Not at all 9. Thoughts that you would be better off , or of hurting yourself in some way: Not at all Total Score: 3 Self-Efficacy 60-Day Re-eval Assessment We would like to know how confident you are in doing certain activities. Please select your confidence level for:: Select your confidence level for the following using the scale 1-10 where 1 is not at all confident and 10 is totally confident. Your score is the average of all 6 responses. Fatigue: How confident are you that you can keep the fatigue caused by your disease from interfering with the things you want to do? Select Number: 9 Physical Discomfort or Pain: How confident are you that you can keep the physical discomfort or pain of your disease from interfering with the things you want to do? Select Number: 10 Emotional Distress: How confident are you that you can keep the emotional distress caused by your disease from interfering with the things you want to do? Select Number: 10 Other Symptoms or Health Problems: How confident are you that you can keep other symptoms or health problems from interfering with the things you want to do? Select Number: 9 Different Tasks and Activities: How confident are you that you can do the different tasks and activities needed to manage your health condition so as to reduce your need to see a doctor? Select Number: 9 Medication: How confident are you that you can do things other than just taking medication to reduce how much your illness affects your everyday life? Select Number: 9 Total Score:: 9
[2018-06-22 08:12] VITALS: BP 144/70; BP 192/80
== END 2018-07-15 23:59 ==
LOC: CR 10:15
PROVIDERS: Family Provider Family Medicine; PCP Family Medicine; Referring Provider Internal Medicine Cardiovascular Disease; Visit Provider Internal Medicine Cardiovascular Disease
DX: I21.4 Non-ST elevation (NSTEMI) myocardial infarction (principal); Z95.5 Presence of coronary angioplasty implant and graft
CPT/HCPCS: 93798

== ENCOUNTER 2018-06-22 10:25 | Emergency (ER) | payer OTHER, MEDICARE, SELFPAY ==
[2018-03-21 13:40] VITALS: BMI 31.6
[2018-04-26 10:46] VITALS: BMI 31.5
[2018-06-22] VITALS (7 sets, daily range): BP systolic 153–185; BP diastolic 82–97; PULSE 75–94; RESP 16–18; TEMP 36.6; O2SAT 94–100; BMI 32.4
--- NOTE | 2018-06-22 10:40 | EKG12_ITS ---
Test Reason : CP Blood Pressure : / mmHG Vent. Rate : 095 BPM Atrial Rate : 095 BPM P-R Int : 162 ms QRS Dur : 088 ms QT Int : 342 ms P-R-T Axes : 043 -26 029 degrees QTc Int : 429 ms Normal sinus rhythm Inferior infarct , age undetermined Anterolateral infarct , age undetermined Abnormal ECG Confirmed by CONCEPCIÓN REYNA, MARIO ([id number]), script editor RADHA FENG ([id number] on 06/26/2018 9:49:37 AM Referred By: BB Confirmed By:MARIO BEEBE MD
--- NOTE | 2018-06-22 10:40 | RAD_ITS ---
STUDY: X-RAY CHEST REASON FOR EXAM: Male, 68 years old. Chest pain. TECHNIQUE: Single AP portable view of the chest. COMPARISON: Comparison is made with prior study dated March 20, 2018. FINDINGS: EKG electrodes are seen. Scattered calcified granulomas. Stable lingular scarring. There is no demonstrated pleural abnormality. Sternal cerclage wires and vascular clips are present from a prior sternotomy and coronary artery bypass graft procedure (CABG). Normal mediastinum and sade. Normal visualized pulmonary arteries. Normal visualized aortic arch and descending thoracic aorta. There are diffuse degenerative changes of the visualized thoracic spine. Normal visualized ribs, clavicles, and shoulders. There is no demonstrated abnormality of the visualized soft tissue structures of the upper abdomen. RAD/Chest 1 View (Portable) IMPRESSION: No acute abnormality is seen. Electronically Signed: Checo Ball, at 10:59 EST , Service support ,
[2018-06-22] MEDS: Aspirin 81 MG TAB.CHEW 162 MG PO (10:56)
[2018-06-22 11:07] LABS: Absolute Lymphocyte Count 2.44 X10^3/ul (0.83-4.51); Absolute Neutrophil Count 4.5 X10^3/uL (2.0-7.7); Basophil# 0.03 X10^3/uL; Basophil% 0.4 % (0-1); Eosinophil# 0.15 X10^3/uL; Eosinophils% 1.9 % (0-5); Hemoglobin 13.2 g/dl (13.0-16.5); Lymphocyte # 2.44 X10^3/ul (4.0); Lymphocyte % 31.6 % (19-41); Mean Corp Hgb Conc 31.4 g/gl (32-36); Mean Corpuscular Hgb 26.5 pg (27.0-32.0); Mean Corpuscular Volume 84.3 fL (80-94); Mean Platelet Vol. 12.3 fl (6.2-12.0); Monocyte# 0.53 X10^3/uL; Monocyte% 6.9 % (0-10); Neutrophil # 4.53 X10^3/uL (2.7-7.7); Neutrophil % 58.7 % (47-70); Platelet Count 124 K/mm3 (150-450); RBC Distribution Width CV 15.6 % (11.6-14.6); RBC Distribution Width SD 47.6 fl (35.1-43.9); Red Blood Count 4.98 M/mm3 (4.6-6.2); White Blood Count 7.7 K/mm3 (4.4-11.0)
[2018-06-22 11:09] LABS: POSITIVE COUNT NO; POSITIVE DIFFERENTIAL NO; POSITIVE MORPHOLOGY NO
--- NOTE | 2018-06-22 11:19 | ED.VIS.GEN ---
History of Present Illness Chief Complaint: Chest Pain Informant: Patient Onset: Yesterday Context: Onset with activity - light exertion Timing: Intermittent Quality: burning and sharp Location: left chest Current Severity: Mild Maximum Severity: Moderate Worsened by: exertion Relieved by: rest Associated Symptoms: lightheadedness, weakness Narrative: Same type of discomfort he had prior to his last stent, which was 2 months ago. He had a CABG about 10 months ago. He has been compliant with his aspirin and Plavix. Yesterday with light exertion he was getting episodes of this discomfort which lasted a couple minutes. Today during cardiac rehab he was on the treadmill and had more significant discomfort, he was sent here to the ER, he has now had the discomfort for about 30 minutes and it is still persistent, mild. - Past Medical History (1) NSTEMI (non-ST elevated myocardial infarction) Status: Chronic (2) Atherosclerotic heart disease of [place] coronary artery without angina pectoris Status: Chronic (3) Chronic headaches Status: Chronic (4) Essential hypertension Status: Chronic (5) HLD (hyperlipidemia) Status: Chronic (6) Neuropathy Status: Chronic (7) Obstructive sleep apnea Status: Chronic (8) Post traumatic stress disorder (PTSD) Status: Chronic (9) Restless legs syndrome Status: Chronic (10) S/P coronary artery stent placement Status: Chronic Comment: PTCA/PHAN of the prox OM2 (11) Type 2 diabetes mellitus Status: Chronic (12) Pancreatitis Status: Resolved Past Medical History - Allergies and Home Meds Allergies/Adverse Reactions: Allergies oxycodone [From OxyContin] Allergy (Verified 06/22/18 10:27) Shortness of breath atorvastatin [From Lipitor] Adverse Reaction (Verified 06/22/18 10:27) Other muscle weakness fish oil Adverse Reaction (Verified 06/22/18 10:27) Other muscle weakness morphine Adverse Reaction (Verified 06/22/18 10:27) Other MIGRAIN TAO Primary Care Physician: Dima Tavarez MD [Primary Care Provider] - Surgical History: coronary bypass surgery, - - Ankle surgery, facial surgery secondary to accident Smoking Status: Never smoker - Family History Maternal Family History: Family History (Last Reviewed 04/23/18 @ 11:04 by Ilsa Tineo) Mother Cancer Father CVA (cerebral vascular accident) Family History: Reports: Cancer Paternal Family History: Family History (Last Reviewed 04/23/18 @ 11:04 by Ilsa Tineo) Mother Cancer Father CVA (cerebral vascular accident) Family History: Reports: Stroke Review of Systems General: Reports: Malaise. Denies: Chills, Fever, Sweats Eyes: Denies: Visual changes - bilaterally, Diplopia ENT: Denies: Rhinorrhea, Sore throat Cardiovascular: Reports: Chest pain - Without radiation. Denies: Palpitations Respiratory: Denies: Dyspnea, Cough, Dyspnea on exertion Gastrointestinal: Denies: Abdominal pain, Nausea, Vomiting, Diarrhea, Melena, Hematochezia Genitourinary: Denies: Dysuria, Hematuria, Frequency Musculoskeletal: Denies: Back pain, Extremity Pain Skin: Denies: Rash, Wounds Neurological: Denies: Headache, Weakness, Numbness Physical Exam Vital Signs/Narrative: Vital Signs Temp Pulse Resp BP Pulse Ox 06/22/18 10:56 89 185/90 H 06/22/18 10:55 100 06/22/18 10:30 98 F 94 16 184/90 H 99 Inital Vital Signs reviewed: Yes General: Well nourished, Well developed, No Acute Distress Head: Normocephalic, Atraumatic Eyes: Perrl, EOMI ENT: Moist mucous membranes, No rhinorrhea Neck: Supple, Nontender, No JVD Cardiovascular: Regular rate, Regular rhythm, No murmurs, Normal S1, Normal S2. Negative for: Tachycardia Respiratory: No distress, CTA bilaterally, Chest tenderness - Mild, just left of sternum, inferiorly Abdomen: Soft, Nontender, Nondistended, Normal bowel sounds Back: Nontender, Normal Inspection Extremities: Nontender, No edema. Negative for: Calf Tenderness Skin: Normal color, No rash Neurological: Alert, Oriented x3, Cranial nerves II-XII grossly intact, Normal Strength, Normal Sensation Psychological: Normal affect, Normal Mood Diagnostic/Tx/Re-eval Impressions Chest X-Ray 06/22/18 10:40 IMPRESSION: No acute abnormality is seen. Electronically Signed: Checo Ball, at 10:59 EST , Service support , 06/22/18 10:40 Chest 1 View (Portable) [RAD] Stat Laboratory Results 06/22/18 06/22/18 10:40 10:40 WBC 7.7 RBC 4.98 Hgb 13.2 Hct 42.0 MCV 84.3 MCH 26.5 L MCHC 31.4 L RDW 15.6 H RDW Differential 47.6 H Plt Count 124 L MPV 12.3 H Immature Gran % (Auto) 0.500 Neut % (Auto) 58.7 Lymph % (Auto) 31.6 [place] % (Auto) 6.9 Eos % (Auto) 1.9 Baso % (Auto) 0.4 Absolute Neuts (auto) 4.5 Absolute Lymphs (auto) 2.44 Total Counted Not Reportable Sodium 134 L Potassium 4.6 Chloride 106 Carbon Dioxide 20.0 L Anion Gap 8 BUN 22 H Creatinine 1.23 Estim Creat Clear Calc 57.70 Est GFR (MDRD) Af Amer 75 Est GFR (MDRD) Non-Af 62 BUN/Creatinine Ratio 17.9 Glucose 305 H Calcium 8.8 Troponin I < 0.015 - Rhythm Strip Rhythm Strip: Sinus Rhythm Rate: 95 Ectopy: None - EKG Initial EKG Interpretation: Sinus Rhythm, No Acute Injury Pattern, Non-Specific ST Changes - ant-sept w/ Q waves. left axis. Prior: Unchanged - Medical Decision Making Workup is negative, patient is chest pain-free after nitroglycerin. His EKG is unchanged. I discussed with Dr. Olivarez, we discussed his recent cath report showing his current anatomy, which shows that he recently had a successful PCI of his second obtuse marginal, but has disease at the ostia of 1 of the rami off of the left circumflex that was unable to be stented, patient suggests that [facility], and they said they were unable to do anything about it. The suspicion is that is what is giving him his unstable angina now. He recommends transfer as this is high risk PCI, and he will need a tertiary care center. At this time the patient is chest pain-free, nitroglycerin paste is placed on his chest. Patient shows [facility], which I think is a reasonable disposition given his issues. Discussed there with Dr. Rascon who accepts the patient to telemetry and request heparin gtt which was started after appropriate bolus. ED Disposition - Plan for ED Patient: Disposition: [facility] - Main Diagnosis: Unstable angina, Carotid artery disease Referrals: Dima Tavarez MD [Primary Care Provider] -
--- NOTE | 2018-06-22 11:23 | ED.DCSUM_ITS ---
History of Present Illness Chief Complaint: Chest Pain Informant: Patient Onset: Yesterday Context: Onset with activity - light exertion Timing: Intermittent Quality: burning and sharp Location: left chest Current Severity: Mild Maximum Severity: Moderate Worsened by: exertion Relieved by: rest Associated Symptoms: lightheadedness, weakness Narrative: Same type of discomfort he had prior to his last stent, which was 2 months ago. He had a CABG about 10 months ago. He has been compliant with his aspirin and Plavix. Yesterday with light exertion he was getting episodes of this discomfort which lasted a couple minutes. Today during cardiac rehab he was on the treadmill and had more significant discomfort, he was sent here to the ER, he has now had the discomfort for about 30 minutes and it is still persistent, mild. - Past Medical History (1) NSTEMI (non-ST elevated myocardial infarction) Status: Chronic (2) Atherosclerotic heart disease of [place] coronary artery without angina pectoris Status: Chronic (3) Chronic headaches Status: Chronic (4) Essential hypertension Status: Chronic (5) HLD (hyperlipidemia) Status: Chronic (6) Neuropathy Status: Chronic (7) Obstructive sleep apnea Status: Chronic (8) Post traumatic stress disorder (PTSD) Status: Chronic (9) Restless legs syndrome Status: Chronic (10) S/P coronary artery stent placement Status: Chronic Comment: PTCA/PHAN of the prox OM2 (11) Type 2 diabetes mellitus Status: Chronic (12) Pancreatitis Status: Resolved Past Medical History - Allergies and Home Meds Allergies/Adverse Reactions: Allergies oxycodone [From OxyContin] Allergy (Verified 06/22/18 10:27) Shortness of breath atorvastatin [From Lipitor] Adverse Reaction (Verified 06/22/18 10:27) Other muscle weakness fish oil Adverse Reaction (Verified 06/22/18 10:27) Other muscle weakness morphine Adverse Reaction (Verified 06/22/18 10:27) Other MIGRAIN TAO Primary Care Physician: Dima Tavarez MD [Primary Care Provider] - Surgical History: coronary bypass surgery, - - Ankle surgery, facial surgery secondary to accident Smoking Status: Never smoker - Family History Maternal Family History: Family History (Last Reviewed 04/23/18 @ 11:04 by Ilsa Tineo) Mother Cancer Father CVA (cerebral vascular accident) Family History: Reports: Cancer Paternal Family History: Family History (Last Reviewed 04/23/18 @ 11:04 by Ilsa Tineo) Mother Cancer Father CVA (cerebral vascular accident) Family History: Reports: Stroke Review of Systems General: Reports: Malaise. Denies: Chills, Fever, Sweats Eyes: Denies: Visual changes - bilaterally, Diplopia ENT: Denies: Rhinorrhea, Sore throat Cardiovascular: Reports: Chest pain - Without radiation. Denies: Palpitations Respiratory: Denies: Dyspnea, Cough, Dyspnea on exertion Gastrointestinal: Denies: Abdominal pain, Nausea, Vomiting, Diarrhea, Melena, Hematochezia Genitourinary: Denies: Dysuria, Hematuria, Frequency Musculoskeletal: Denies: Back pain, Extremity Pain Skin: Denies: Rash, Wounds Neurological: Denies: Headache, Weakness, Numbness Physical Exam Vital Signs/Narrative: Vital Signs Temp Pulse Resp BP Pulse Ox 06/22/18 10:56 89 185/90 H 06/22/18 10:55 100 06/22/18 10:30 98 F 94 16 184/90 H 99 Inital Vital Signs reviewed: Yes General: Well nourished, Well developed, No Acute Distress Head: Normocephalic, Atraumatic Eyes: Perrl, EOMI ENT: Moist mucous membranes, No rhinorrhea Neck: Supple, Nontender, No JVD Cardiovascular: Regular rate, Regular rhythm, No murmurs, Normal S1, Normal S2. Negative for: Tachycardia Respiratory: No distress, CTA bilaterally, Chest tenderness - Mild, just left of sternum, inferiorly Abdomen: Soft, Nontender, Nondistended, Normal bowel sounds Back: Nontender, Normal Inspection Extremities: Nontender, No edema. Negative for: Calf Tenderness Skin: Normal color, No rash Neurological: Alert, Oriented x3, Cranial nerves II-XII grossly intact, Normal Strength, Normal Sensation Psychological: Normal affect, Normal Mood Diagnostic/Tx/Re-eval Impressions Chest X-Ray 06/22/18 10:40 IMPRESSION: No acute abnormality is seen. Electronically Signed: Checo Ball, at 10:59 EST , Service support , 06/22/18 10:40 Chest 1 View (Portable) [RAD] Stat Laboratory Results 06/22/18 06/22/18 10:40 10:40 WBC 7.7 RBC 4.98 Hgb 13.2 Hct 42.0 MCV 84.3 MCH 26.5 L MCHC 31.4 L RDW 15.6 H RDW Differential 47.6 H Plt Count 124 L MPV 12.3 H Immature Gran % (Auto) 0.500 Neut % (Auto) 58.7 Lymph % (Auto) 31.6 [place] % (Auto) 6.9 Eos % (Auto) 1.9 Baso % (Auto) 0.4 Absolute Neuts (auto) 4.5 Absolute Lymphs (auto) 2.44 Total Counted Not Reportable Sodium 134 L Potassium 4.6 Chloride 106 Carbon Dioxide 20.0 L Anion Gap 8 BUN 22 H Creatinine 1.23 Estim Creat Clear Calc 57.70 Est GFR (MDRD) Af Amer 75 Est GFR (MDRD) Non-Af 62 BUN/Creatinine Ratio 17.9 Glucose 305 H Calcium 8.8 Troponin I < 0.015 - Rhythm Strip Rhythm Strip: Sinus Rhythm Rate: 95 Ectopy: None - EKG Initial EKG Interpretation: Sinus Rhythm, No Acute Injury Pattern, Non-Specific ST Changes - ant-sept w/ Q waves. left axis. Prior: Unchanged - Medical Decision Making Workup is negative, patient is chest pain-free after nitroglycerin. His EKG is unchanged. I discussed with Dr. Olivarez, we discussed his recent cath report showing his current anatomy, which shows that he recently had a successful PCI of his second obtuse marginal, but has disease at the ostia of 1 of the rami off of the left circumflex that was unable to be stented, patient suggests that [facility], and they said they were unable to do anything about it. The suspicion is that is what is giving him his unstable angina now. He recommends transfer as this is high risk PCI, and he will need a tertiary care center. At this time the patient is chest pain-free, nitroglycerin paste is placed on his chest. Patient shows [facility], which I think is a reasonable disposition given his issues. Discussed there with Dr. Rascon who accepts the patient to telemetry and request heparin gtt which was started after appropriate bolus. ED Disposition - Plan for ED Patient: Disposition: [facility] - Main Diagnosis: Unstable angina, Carotid artery disease Referrals: Dima Tavarez MD [Primary Care Provider] -
[2018-06-22 11:25] LABS: BUN 22 mg/dL (7-18); BUN/Creat Ratio 17.9 RATIO (10-20); Calcium,Total 8.8 mg/dL (8.5-10.1); Chloride 106 mmol/L (98-107); Creatinine, Serum 1.23 mg/dL (0.70-1.30); EST Glomerular Filtration Rate 62 mL/min (>60); Est Glom Filt Rate - Afr Amer 75 mL/min (>60); Glucose 305 mg/dL (74-106); Potassium 4.6 mmol/L (3.5-5.1); Sodium Level 134 mmol/L (136-145)
[2018-06-22 11:26] LABS: Anion Gap 8 (5-15)
[2018-06-22] MEDS: Nitroglycerin Oint 1 INCH PACKET TRANSDERM. (14:00)
--- NOTE | 2018-06-22 14:18 | CASEMGMT ---
According to [employer] [facility] Website, patient may be transferred to [facility], [place], [facility], [facility], [facility], , [facility] ANTHONY Camacho
[2018-06-22 15:43] LABS: Partial Thromboplast Time 34.7 Seconds (24.1-36.2)
[2018-06-22] MEDS: Heparin Injection (Vial) 5,000 UNIT/ML VIAL 8000 UNIT IV (15:44)
[2018-06-22] MEDS: HEPARIN/D5w 25,000 UNITS 25,000 UNITS/250 ML IV.SOLN. 15 UNITS IV (15:47)
== END 2018-06-22 16:14 | disposition short-term general hospital (02) ==
PROVIDERS: Emergency Provider Emergency Medicine; Family Provider Family Medicine; PCP Family Medicine
DX: I25.110 Atherosclerotic heart disease of native coronary artery with unstable angina pectoris (principal); E11.40 Type 2 diabetes mellitus with diabetic neuropathy, unspecified; I77.89 Other specified disorders of arteries and arterioles; I10 Essential (primary) hypertension; E78.5 Hyperlipidemia, unspecified; G25.81 Restless legs syndrome; G47.33 Obstructive sleep apnea (adult) (pediatric); F43.12 Post-traumatic stress disorder, chronic; X58.XXXA Exposure to other specified factors, initial encounter; Y93.9 Activity, unspecified; Y92.9 Unspecified place or not applicable; Y99.9 Unspecified external cause status; Z79.02 Long term (current) use of antithrombotics/antiplatelets; Z79.82 Long term (current) use of aspirin; Z79.4 Long term (current) use of insulin; Z79.899 Other long term (current) drug therapy; I25.2 Old myocardial infarction; Z95.5 Presence of coronary angioplasty implant and graft; Z95.1 Presence of aortocoronary bypass graft
CPT/HCPCS: 71045; 80048; 84484; 85025; 85730; 93005; 96374; 99285; A4216

== ENCOUNTER 2018-09-21 08:33 | Emergency (ER) | payer OTHER, MEDICARE, SELFPAY ==
[2018-03-21 13:40] VITALS: BMI 31.6
[2018-09-21 08:33] VITALS: BMI 32.4
[2018-09-21 08:34] VITALS: BP 132/66; PULSE 68; RESP 18; TEMP 36.6; O2SAT 95; BMI 31.2
[2018-09-21 08:46] VITALS: O2SAT 98
--- NOTE | 2018-09-21 08:48 | EKG12_ITS ---
Test Reason : COUGH Blood Pressure : / mmHG Vent. Rate : 066 BPM Atrial Rate : 066 BPM P-R Int : 154 ms QRS Dur : 102 ms QT Int : 410 ms P-R-T Axes : -23 -20 039 degrees QTc Int : 429 ms Normal sinus rhythm Inferior infarct (cited on or before 02-OCT-2017), age undetermined Anterolateral infarct (cited on or before 02-OCT-2017), age undetermined Abnormal ECG Confirmed by RAY REYNA, BATSHEVA ([id number]), editor magazine GENEVA VERA ([id number]) on 09/25/2018 8:47:24 AM Referred By: KENYETTA Confirmed By:BATSHEVA BELL MD
--- NOTE | 2018-09-21 08:48 | RAD_ITS ---
STUDY: X-RAY CHEST REASON FOR EXAM: Male, 68 years old. Cough. Chest pain. TECHNIQUE: PA and lateral views of the chest. COMPARISON: Comparison is made with prior examination dated June 22, 2018. FINDINGS: EKG electrodes are seen. The lungs are clear and expanded. There is no demonstrated pleural abnormality. Normal size heart. Normal mediastinum and sade. Normal visualized pulmonary arteries. There is atherosclerotic tortuosity of the aortic arch and descending thoracic aorta. There are degenerative changes of the visualized thoracic spine. Normal visualized ribs, clavicles, and shoulders. There is no demonstrated abnormality of the visualized soft tissue structures of the upper abdomen. RAD/Chest PA and Lateral IMPRESSION: No acute abnormality is seen. Electronically Signed: Checo Ball, at 9:31 EDT , Service support ,
--- NOTE | 2018-09-21 08:49 | ED.VISSUMM ---
- ER Visit Summary Date of Service: 09/21/18 Chief Complaint: Cough History of Present Illness: The patient is a 68 M who presents for 1-1/2 weeks of a cough. Patient states the cough is persistent and hacking. He has associated shortness of breath and pleuritic chest pain with the cough. He denies fever. He also is having rhinorrhea but denies a sore throat, abdominal pain, nausea or vomiting. He states he is coughing so much it is causing migraine headaches. He has tried cough medicine without any relief. Patient has significant cardiac history with multiple stents and triple bypass within the last year. He is currently on aspirin and Plavix. Also history of diabetes, hypertension and hypercholesterolemia. No history of heart failure, asthma or COPD. Patient is not a smoker. He states multiple family members had similar symptoms but all of them have recovered at this point. Physical Examination: Vital signs: afebrile, hemodynamically stable, no hypoxia on room air General: well nourished, well developed, in no distress Skin: warm, dry, no rash, no pallor HEENT: normocephalic and atraumatic; PERRL, EOMI, moist mucous membranes Cardiovascular: regular rate and rhythm without murmurs, no peripheral edema, 2+ pulses all distal extremities Respiratory: No increased work of breathing, lungs are clear to auscultation bilaterally, no rales, rhonchi or wheezing, frequent dry hacking cough Abdominal: Abdomen is soft, nontender with normoactive bowel sounds, no guarding or rebound, no masses MSK: Moves all extremities, no deformities, normal strength Neuro: Awake and alert, oriented ?4. No facial droop, sensation and motor function intact and symmetric Test Results: Abnormal Lab Results 09/21/18 09/21/18 08:50 08:50 WBC 9.1 RBC 5.19 Hgb 14.3 Hct 42.9 MCV 82.7 MCH 27.6 MCHC 33.3 RDW 14.4 RDW Differential 43.8 Plt Count 134 L MPV 12.6 H Immature Gran % (Auto) 0.400 Neut % (Auto) 66.2 Lymph % (Auto) 22.9 [place] % (Auto) 8.2 Eos % (Auto) 1.9 Baso % (Auto) 0.4 Absolute Neuts (auto) 6.0 Absolute Lymphs (auto) 2.07 Total Counted Not Reportable Sodium 132 L Potassium 4.6 Chloride 105 Carbon Dioxide 20.0 L Anion Gap 7 BUN 27 H Creatinine 1.52 H Estim Creat Clear Calc 46.69 Est GFR (MDRD) Af Amer 59 L Est GFR (MDRD) Non-Af 48 L BUN/Creatinine Ratio 17.8 Glucose 404 H Calcium 9.0 Troponin I < 0.015 Clinical Impression(s) from Imaging Studies Chest X-Ray 09/21/18 08:48 IMPRESSION: No acute abnormality is seen. Electronically Signed: Checo Badilloguerda, at 9:31 EDT , Service support , Emergency Department Course and Treatment: Because of patient's cough for over a week and a half now, chest x-ray was performed to evaluate for any possible pneumonia. Chest x-ray showed no infiltrates or other acute process. Patient also has significant cardiac history and is having some chest pain associated with the cough, which is likely due to chest wall strain from the force of coughing. However because of his cardiac history EKG and troponin were checked. EKG showed no ischemic changes. Troponin was negative. Patient's labs were remarkable for a glucose of 404. Patient states he has not taken his insulin or other diabetic medications yet this morning. He states his blood sugar has been running high because of the cough syrup he has been using. Patient states he will take his medications as soon as he gets home. He was given a prescription for Augmentin for concern for bacterial bronchitis since patient's symptoms have been going on for approaching 2 weeks now. He was also given a prescription for Hycodan to help with symptomatic relief. He was discharged home with return precautions. Treatment Plan: [] Disposition: [] Impression: Acute bacterial bronchitis, hyperglycemia This note was generated with [employer] dictation software. It may contain incorrect words, spelling, and punctuation that were not noted in review of the chart prior to signing ED Disposition - Plan for ED Patient: Disposition: Home or Assisted Living Instructions: ED Upper Resp Infec Abx Tx Prescriptions: Hydrocodone Bit/Homatropine [Hycodan Syrup] 5 ml PO Q4H PRN PRN 5 Days #100 ml PRN Reason: Cough Amox/Clavulanate Tablet [Augmentin Tablet] 875 mg PO Q12H #14 tab Referrals: Dima Tavarez MD [Primary Care Provider] - 1 Week if not improving Additional Instructions: Your blood sugar was 400 in the emergency department. Please take your diabetes medications when you get home. You may use the cough syrup as needed for cough. Do not drive or do any dangerous activities while taking it, as it contains codeine. Do not take more than prescribed as it may make you sleepy and you do not want to accidentally overdose on it. Take the antibiotic as prescribed for the full 7 days unless told to stop by a healthcare provider. Antibiotics will only work on bacterial infections, so if your cough and bronchitis is actually due to a viral infection, the antibiotic is not going to work. If you have any worsening of your condition or any new concerning symptoms, please return immediately to the emergency department for another evaluation.
[2018-09-21 08:50] VITALS: BP 132/66; PULSE 66; RESP 14; TEMP 36.6; O2SAT 94
[2018-09-21 09:09] LABS: Absolute Lymphocyte Count 2.07 X10^3/ul (0.83-4.51); Basophil# 0.04 X10^3/uL; Basophil% 0.4 % (0-1); Eosinophil# 0.17 X10^3/uL; Eosinophils% 1.9 % (0-5); Hematocrit 42.9 % (40-54); Hemoglobin 14.3 g/dl (13.0-16.5); Lymphocyte # 2.07 X10^3/ul (4.0); Lymphocyte % 22.9 % (19-41); Mean Corp Hgb Conc 33.3 g/gl (32-36); Mean Corpuscular Hgb 27.6 pg (27.0-32.0); Mean Corpuscular Volume 82.7 fL (80-94); Mean Platelet Vol. 12.6 fl (6.2-12.0); Monocyte# 0.74 X10^3/uL; Monocyte% 8.2 % (0-10); Neutrophil # 5.99 X10^3/uL (2.7-7.7); Neutrophil % 66.2 % (47-70); POSITIVE COUNT NO; POSITIVE DIFFERENTIAL NO; POSITIVE MORPHOLOGY NO; Platelet Count 134 K/mm3 (150-450); RBC Distribution Width CV 14.4 % (11.6-14.6); RBC Distribution Width SD 43.8 fl (35.1-43.9); Red Blood Count 5.19 M/mm3 (4.6-6.2); White Blood Count 9.1 K/mm3 (4.4-11.0)
[2018-09-21 09:23] LABS: Anion Gap 7 (5-15); BUN 27 mg/dL (7-18); BUN/Creat Ratio 17.8 RATIO (10-20); Chloride 105 mmol/L (98-107); Creatinine, Serum 1.52 mg/dL (0.70-1.30); EST Glomerular Filtration Rate 48 mL/min (>60); Est Glom Filt Rate - Afr Amer 59 mL/min (>60); Estimated Creatinine Clearance 46.69 ml/min; Glucose 404 mg/dL (74-106); Potassium 4.6 mmol/L (3.5-5.1); Sodium Level 132 mmol/L (136-145)
[2018-09-21 09:38] VITALS: BP 136/87; PULSE 64; RESP 19; O2SAT 93
[2018-09-21 09:58] VITALS: BP 135/74; PULSE 62; RESP 15; TEMP 36.8; O2SAT 97
== END 2018-09-21 09:59 | disposition home or self-care (01) ==
PROVIDERS: Emergency Provider Emergency Medicine; Family Provider Family Medicine; PCP Family Medicine
DX: J20.8 Acute bronchitis due to other specified organisms (principal); E11.65 Type 2 diabetes mellitus with hyperglycemia; I10 Essential (primary) hypertension; E78.00 Pure hypercholesterolemia, unspecified; Z79.02 Long term (current) use of antithrombotics/antiplatelets; Z79.82 Long term (current) use of aspirin; Z79.4 Long term (current) use of insulin; Z79.899 Other long term (current) drug therapy; Z95.1 Presence of aortocoronary bypass graft; Z95.5 Presence of coronary angioplasty implant and graft
CPT/HCPCS: 71046; 80048; 84484; 85025; 93005; 99284; A4216

== ENCOUNTER 2018-12-23 03:47 | Emergency (ER) | payer MEDICARE, OTHER, SELFPAY ==
[2018-03-21 13:40] VITALS: BMI 31.6
[2018-12-23 03:48] VITALS: BP 182/86; PULSE 76; RESP 15; TEMP 36.4; O2SAT 97; BMI 31.4
--- NOTE | 2018-12-23 03:51 | ED.VISSUMM ---
- ER Visit Summary Date of Service: 12/23/18 Chief Complaint: Right foot burn/injury History of Present Illness: The patient is a 68 M who was working with some molten steel fell onto his shoe and brought to the shoe and under the foot. He burned the distal part of his right foot. This happened 3 days ago. He has continued to have pain in this area. He is concerned and it may become infected as he is a diabetic. Touching it makes it worse. Is been sleeping a little bit of fluid but no purulent drainage. He took nothing for pain at home. Physical Examination: Vital signs reviewed. Right foot exam reveals a superficial burn to the distal right foot near the distal metatarsals of the first and second toe. There is no erythema or drainage. It is diffusely tender around this area. No abscess. He has equal posterior tibial pulses. Good capillary refill. He does have some onychomycosis of the toenails of the right foot. Test Results: None performed Emergency Department Course and Treatment: The patient has a superficial burn to the right foot. I will place him on Keflex as he is a diabetic to prevent infection. I will give him a few [place] tablets for pain at home. He will keep elevated. He will continue to use Neosporin cream topically. He will follow-up with his PCP this coming week for recheck Treatment Plan: [] Disposition: Discharge Impression: Superficial burn, right foot This note was generated with AgentBridge dictation software. It may contain incorrect words, spelling, and punctuation that were not noted in review of the chart prior to signing ED Disposition - Plan for ED Patient: Referrals: Dima Tavarez MD [Primary Care Provider] -
--- NOTE | 2018-12-23 03:53 | ED.DEP ---
ED Disposition - Plan for ED Patient: Disposition: Home or Assisted Living Instructions: BURN, Infected Prescriptions: Cephalexin [Keflex] 500 mg PO TID #21 cap Prescription Printed Hydrocodone Bitart/Apap 5-325 [[place] 5MG-325MG] 1 tab PO Q6H PRN PRN 3 Days #8 tab PRN Reason: Pain Prescription Printed Referrals: Dima Tavarez MD [Primary Care Provider] -
[2018-12-23] MEDS: Cephalexin 250 MG Capsule 500 MG PO (03:57)
[2018-12-23 03:58] VITALS: BP 182/86; PULSE 78; RESP 15; O2SAT 95
== END 2018-12-23 04:09 | disposition home or self-care (01) ==
PROVIDERS: Emergency Provider Emergency Medicine; Family Provider Family Medicine; PCP Family Medicine
DX: T25.021A Burn of unspecified degree of right foot, initial encounter (principal); X18.XXXA Contact with other hot metals, initial encounter; Y93.9 Activity, unspecified; Y92.9 Unspecified place or not applicable; Y99.9 Unspecified external cause status; B35.1 Tinea unguium; E11.9 Type 2 diabetes mellitus without complications; I25.10 Atherosclerotic heart disease of native coronary artery without angina pectoris; Z79.02 Long term (current) use of antithrombotics/antiplatelets; Z79.82 Long term (current) use of aspirin; Z79.4 Long term (current) use of insulin; Z79.899 Other long term (current) drug therapy; Z95.1 Presence of aortocoronary bypass graft
CPT/HCPCS: 99283

== ENCOUNTER → 2019-04-13 09:55 | Outpatient (CLI) | payer MEDICARE, SELFPAY ==
[2018-03-21 13:40] VITALS: BMI 31.6
[2019-04-13 09:21] VITALS: BMI 32.1
--- NOTE | 2019-04-13 09:58 | RAD_ITS ---
STUDY: X-RAY CHEST REASON FOR EXAM: Male, 69 years old. COUGH X 1 MONTH; -- CABG, STENTS TECHNIQUE: PA and lateral views of the chest. COMPARISON: September 21, 2018 FINDINGS: The lungs are clear and expanded. There is no demonstrated pleural abnormality. Sternal cerclage wires and vascular clips are present from a prior sternotomy and coronary artery bypass graft procedure (CABG). Normal heart size. The remaining structures are stable. RAD/Chest PA and Lateral IMPRESSION: No acute process Electronically Signed: Isaias Vincent MD at 10:36 EST , Service support ,
== END ==
PROVIDERS: Family Provider Family Medicine; PCP Family Medicine; Referring Provider Physician Assistant; Visit Provider Physician Assistant
DX: R05 Cough (principal)
CPT/HCPCS: 71046

== ENCOUNTER 2019-12-27 07:01 | Day surgery (SDC) | payer OTHER, MEDICARE, SELFPAY ==
[2018-03-21 13:40] VITALS: BMI 31.6
[2019-12-09 09:06] VITALS: BMI 32.1
--- NOTE | 2019-12-09 09:51 | HP_ITS ---
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 Is patient in pain?: No Allergies oxycodone [From OxyContin] Allergy (Verified 12/09/19 08:57) Shortness of breath atorvastatin [From Lipitor] Adverse Reaction (Verified 12/09/19 08:57) Other fish oil Adverse Reaction (Verified 12/09/19 08:57) Other morphine Adverse Reaction (Verified 12/09/19 08:57) Other Medications Aspirin [Aspirin, Baby] 81 mg PO QODAY 11/21/14 [History Confirmed 12/09/19] Dextrose [Glucose] 4 gm PO PRN PRN 12/23/16 [History Confirmed 12/09/19] Insulin Aspart [Novolog Flexpen] 24 units SUBCUT BREAKFAST 12/23/16 [History Confirmed 12/09/19] Insulin Aspart [Novolog Flexpen] 24 units SUBCUT DINNER 12/23/16 [History Confirmed 12/09/19] Insulin Glargine [Lantus SoloStar Pen] 60 units SUBCUT BID 12/23/16 [History Confirmed 12/09/19] Multivitamin,Therapeutic [Thera] 1 ea PO DAILY 12/23/16 [History Confirmed 12/09/19] Pyridoxine HCl [Vitamin B-6] 100 mg PO DAILY 12/23/16 [History Confirmed 12/09/19] Thiamine HCl [Vitamin B-1] 100 mg PO DAILY 12/23/16 [History Confirmed 12/09/19] traZODone [Desyrel] 100 mg PO QHS PRN 03/18/17 [History Confirmed 12/09/19] Lipase/Protease/Amylase [Jacek Valdes 24,000 Units Capsule] 2 cap PO TIDCM 03/20/18 [History Confirmed 12/09/19] Clopidogrel Bisulfate [Plavix] 75 mg PO DAILY #90 tab 03/22/18 [Rx Confirmed 12/09/19] fenofibrate micronized 200 mg capsule 200 mg PO DAILY #90 cap 04/23/18 [Rx Confirmed 12/09/19] furosemide 20 mg tablet 20 mg PO DAILY #90 tab 04/23/18 [Rx Confirmed 12/09/19] ondansetron HCl 8 mg tablet 8 mg PO TID PRN tab 04/23/18 [History Confirmed 12/09/19] pregabalin 150 mg capsule 150 mg PO BID cap 04/23/18 [History Confirmed 12/09/19] topiramate 50 mg tablet 50 mg PO QHS tab 04/23/18 [History Confirmed 12/09/19] insulin aspart U-100 100 unit/mL (3 mL) subcutaneous pen 24 unit SUBCUT LUNCH ml 07/13/18 [History Confirmed 12/09/19] isosorbide mononitrate 30 mg tablet,extended release 24 hr 30 mg PO DAILY #90 tab 07/13/18 [Rx Confirmed 12/09/19] metoprolol succinate 100 mg tablet,extended release 24 hr 100 mg PO DAILY 07/13/18 [History Confirmed 12/09/19] rosuvastatin 20 mg tablet 20 mg PO DAILY 07/13/18 [History Confirmed 12/09/19] carbidopa 10 mg-levodopa 100 mg tablet 1 tab PO QHS 12/26/18 [History Confirmed 12/09/19] diclofenac sodium 1 % topical gel 2 g TOPICAL ONCE 12/26/18 [History Confirmed 12/09/19] nitroglycerin 0.4 mg sublingual tablet 0.4 mg SUBLINGUAL Q5-15M 12/26/18 [History Confirmed 12/09/19] omeprazole 40 mg capsule,delayed release 40 mg PO DAILY 12/26/18 [History Confirmed 12/09/19] [facility] Medical History Essential hypertension (Chronic) Atherosclerotic heart disease of [place] coronary artery without angina pectoris (Chronic) NSTEMI (non-ST elevated myocardial infarction) (Chronic) CAD (coronary artery disease) (Chronic) HLD (hyperlipidemia) (Chronic) Carotid artery disease (Chronic) Post traumatic stress disorder (PTSD) (Chronic) Type 2 diabetes mellitus (Chronic) Neuropathy (Chronic) Obstructive sleep apnea (Chronic) Restless legs syndrome (Chronic) Chronic headaches (Chronic) Numbness and tingling in right hand (Chronic) Chest pain (Acute) Pancreatitis (Resolved) Cataract (Acute) Cataract (lens) fragments in eye following cataract surgery, bilateral (Acute) Severe headache (Acute) Chronic neck and back pain (Chronic) Surgical History (Updated 12/09/19 @ 08:56 by Jdoi Whyte) S/P coronary artery stent placement (Chronic ~07/05/18) Hx of CABG (Chronic ~08/2017) History of cholecystectomy (Acute) History of ankle surgery (Resolved) History of facial surgery (Resolved) Family History (Updated 12/09/19 @ 08:56 by Jodi Whyte) Mother Cancer Diabetes Heart disease Hypertension Father CVA (cerebral vascular accident) Diabetes Heart disease Hypertension Social History (Updated 12/09/19 @ 09:[address] Rodo Odonnell MD) Smoking Status: Never smoker alcohol intake: never substance use type: does not use HPI HPI HPI: CAMDEN HOLDER, is a 69 M who presents to the office today for HPI HPI Surgical H&P: Yes HPI: CAMDEN HOLDER, is a 69 M who presents to the office today for colonoscopy. Patient reports his last colonoscopy was 5 years ago and he was recommended to have another one in 5 years. Patient has history of polyps of the colon. Patient also has longstanding GERD and was recommended to have EGD. ROS General General: Yes weight change and fatigue; no appetite, colon cancer, breast cancer or weakness HEENT HEENT: No difficulty swallowing, eye injury, eye surgery, swollen glands or hoarseness Endo Endocrine: Yes diabetes mellitus; no thyroid disease, thyroid cancer, Hair loss, heat intolerance or cold intolerance Cardio Cardiovascular: Yes heart disease, high blood pressure, heart attack and heart stent; no murmur, pacemaker, atrial fibrillation, palpitations, shortness of breat with exertion or chest pain Psych Psychiatric: Yes anxiety; no depression or hearing voices Resp Respiratory: Yes shortness of breath, Yes sleep apnea, Yes cough, No COPD, No asthma, No emphysema, No wheezing Gastro Gastrointestinal: Yes abdominal pain, Yes nausea or vomiting, Yes diarrhea, No constipation, No blood in stool, No acid reflux, No hemorrhoids, No ulcers, Yes gallbladder problem, No black,tarry stools Drew Hematologic: No blood thinners, No blood disorders, No bleeding, No anemia, No blood clots Neuro Neurologic: No weakness Exam Const General: cooperative Orientation: alert, oriented x3 Resp Effort & Inspection: normal respiratory effort Auscultation: clear to auscultation bilaterally Cardio Rate: regular rate Rhythm: regular rhythm Heart Sounds: no murmurs GI Inspection: non-distended Palpation: soft, nontender Assessment & Plan Problems 1. History of colon polyps Z86.010 2. Gastroesophageal reflux disease, esophagitis presence not specified K21.9 Plan The patient has longstanding GERD as well as a history of adenomatous polyps of the colon. His last colonoscopy was 5 years ago and he was recommended to have a repeat in 5 years. According to the referral the patient is unable to come off of his Plavix. I would like clarification if this is true or not as his heart stents are over a year and a half old. If Dr. Olivarez is okay with him stopping his Plavix the patient would rather undergo procedure off Plavix instead of undergoing it on Plavix. It is possible to do the procedure on Plavix if necessary. I explained endoscopy in detail to the patient. I explained the risks including but not limited to stroke or heart attack with anesthesia, perforation of the GI tract, bleeding, infection. I explained that any of these could necessitate further emergency surgery. The patient understands and all questions were answered sufficiently. The patient wishes to proceed with procedure. We discussed the current risks associated with COVID-19. While it is understood that there is a community spread of COVID-19, the risk of evan COVID-19 while at [facility] ([facility]) is very low; however, the risk cannot be completely mitigated because of the community spread of the disease. We discussed in detail the risk of exposure to and/or potential harm posed by the COVID-19 virus with having a surgery/procedure at this time versus the risk of delaying the surgery/procedure. It is not possible to know either the risk of delaying the surgery or procedure or chance of getting an infection with perfect accuracy, but a joint decision was made to proceed at this time with the scheduled surgery/procedure as indicated on the consent form. Patient was notified that we will need to comply with any screening or testing [facility] wishes to perform or that surgery may be delayed for any positive results. Rodo Odonnell MD Pager: [facility] [address] [place] [address], [address] [place] [address] Office: Orders Orders: EGD Today Colonoscopy Today Coding Level of Care Code Off vis,new,level 3 Diagnoses History of colon polyps Z86.010 Gastroesophageal reflux disease, esophagitis presence not specified K21.9 ??Esophagitis presence: esophagitis presence not specified 12/09/19 0951 <Electronically signed by Rodo vaughn MD> Date _ Rodo Odonnell MD I have re-examined the patient. There are no clinical changes since date of exam.
[2019-12-27 07:19] VITALS: BP 149/75; PULSE 63; RESP 16; TEMP 36.7; O2SAT 96; BMI 28.9
[2019-12-27] MEDS: Lactated Ringers 1,000 ML 100 ML IV (07:25)
[2019-12-27 07:35] LABS: Bedside Glucose 121 mg/dL (70-110)
--- NOTE | 2019-12-27 08:00 | COLBX_PTH ---
PATIENT: CAMDEN HOLDER LOC: EN U#:[id number] AGE/SX: 69/M ROOM: RE12/27/[address]: Dr. Rodo Odonnell MD : 1950 BED: DIS: 12/27/2019 SPEC #: [id number] RECD: 12/27/19 10:19 STATUS: REBECCA GOLD #: [id number] CORI: 12/27/19 08:[address]: Rodo Odonnell DEPT: SURGICAL PATHOLOGY RECD BY: Brandee Ching ENTERED: 12/27/19 12:49 SP TYPE: COLON BX CARRINGTON DR: Dr. Dima Tavarez MD Tissues: A - Transverse colon B - Cecum, NOS C - Descending colon Procedures: Surgery Specimen Level IV HEADER OPERATION: Colonoscopy, EGD ([facility] [place]) PRE-OP DIAGNOSIS: GERD, history polyps TISSUE SUBMITTED: A - Transverse colon polyps, B - Cecal polyp, C - Descending colon polyp MICROSCOPIC DIAGNOSIS A. Transverse colon polyps, biopsy: Fragments of tubular adenoma. Fragments of fecal material. B. Cecal polyp, biopsy: Polypoid fragment of colonic mucosa with cautery artifacts. A minute fragment of tubular adenoma. Fragments of fecal material. C. Descending colon polyp, biopsy: Tubular adenoma. Fragments of fecal material. IVETH:armen 12/30/19 MICROSCOPIC DESCRIPTION Slides are reviewed. GROSS DESCRIPTION A - Received in fixative is one container labeled with the patient's name and designated transverse colon polyp. The specimen consists of multiple irregular fragments of nix-pink soft tissue mixed with fecal material that in aggregate measure 1.5 x 0.5 x 0.3 cm. The specimen is totally submitted in one cassette. B - Received in fixative is one container labeled with the patient's name and designated cecal polyp. The specimen consists of a fragment of nix-pink polyp measuring 0.5 x 0.4 x 0.1 cm. Fragments of fecal material are also noted. The entire specimen is submitted in one cassette. C - Received in fixative is one container labeled with the patient's name and designated descending colon polyp. The specimen consists of multiple irregular fragments of nix soft tissue mixed with fecal material that in aggregate measure 1.5 x 0.4 x 0.2 cm. The specimen is totally submitted in one cassette. / IVETH:armen 12/27/19 TC:1 CPT: 26375 x3
[2019-12-27 08:16] VITALS: BP 112/59; BP 149/75; PULSE 58; RESP 16; TEMP 36.6; O2SAT 96
--- NOTE | 2019-12-27 08:16 | OP.EGD_ITS ---
Patient Name: Pato Bishop Procedure Date: 12/27/2019 7:41 AM Date of : 1950 Age: 69 Procedure: Upper GI endoscopy Indications: Heartburn, Suspected gastro-esophageal reflux disease Providers: Rodo Odonnell MD Referring MD: Dima Tavarez Medicines: Monitored Anesthesia Care Patient Profile: This is a 69 year old male. Refer to note in patient chart for documentation of history and physical. Complications: No immediate complications. Procedure: Pre-Anesthesia Assessment: - Prior to the procedure, a History and Physical was performed, and patient medications and allergies were reviewed. The patient's tolerance of previous anesthesia was also reviewed. The risks and benefits of the procedure and the sedation options and risks were discussed with the patient. All questions were answered, and informed consent was obtained. Prior Anticoagulants: The patient has taken Plavix (clopidogrel), last dose was 5 days prior to procedure. After reviewing the risks and benefits, the patient was deemed in satisfactory condition to undergo the procedure. After obtaining informed consent, the endoscope was passed under direct vision. Throughout the procedure, the patient's blood pressure, pulse, and oxygen saturations were monitored continuously. The gastroscope was introduced through the mouth, and advanced to the second part of duodenum. The upper GI endoscopy was accomplished without difficulty. The patient tolerated the procedure well. Scope In: 7:53:41 AM Scope Out: 7:55:47 AM Total Procedure Duration Time 0 hours 2 minutes 6 seconds Findings: The esophagus was normal. The stomach was normal. The examined duodenum was normal. Impression: - Normal esophagus. - Normal stomach. - Normal examined duodenum. - No specimens collected. Recommendation: - Discharge patient to home. - Resume previous diet. - Continue present medications. - Resume Plavix (clopidogrel) at prior dose tomorrow. Procedure Code(s): --- Professional --- 21877, Esophagogastroduodenoscopy, flexible, transoral; diagnostic, including collection of specimen(s) by brushing or washing, when performed (separate procedure) Diagnosis Code(s): --- Professional --- R12, Heartburn CPT copyright 2017 [employer]. All rights reserved. The codes documented in this report are preliminary and upon remote inpatient coder review may be revised to meet current compliance requirements. Rodo Odonnell MD 12/27/2019 8:16:07 AM This report has been signed electronically. Number of Addenda: 0 Note Initiated On: 12/27/2019 7:41 AM
--- NOTE | 2019-12-27 08:17 | OP.CCLET_ITS ---
12/27/2019 Dima Tavarez Re : Upper GI endoscopy procedure for Pato Parikh [place] This procedure was performed on Friday, December 27, 2019. My impressions and recommendations are as follows: Impressions : - Normal esophagus. - Normal stomach. - Normal examined duodenum. - No specimens collected. Recommendations : - Discharge patient to home. - Resume previous diet. - Continue present medications. - Resume Plavix (clopidogrel) at prior dose tomorrow. My findings are described in the full procedure note, which is enclosed. If I can be of further assistance, please feel free to contact me at Doctor phone number(s): , Work: . Sincerely, Rodo Odonnell MD 12/27/2019 8:16:07 AM This report has been signed electronically.
--- NOTE | 2019-12-27 08:18 | OP.CCLET_ITS ---
12/27/2019 Dima Tavarez Re : Colonoscopy procedure for Pato Parikh [place] This procedure was performed on Friday, December 27, 2019. My impressions and recommendations are as follows: Impressions : - Three polyps in the descending colon, in the transverse colon and in the cecum, removed with a hot snare. Resected and retrieved. - The examination was otherwise normal on direct and retroflexion views. Recommendations : - Discharge patient to home. - Resume previous diet. - Continue present medications. - Resume Plavix (clopidogrel) at prior dose tomorrow. - Await pathology results. - Repeat colonoscopy in 5 years for surveillance based on pathology results. My findings are described in the full procedure note, which is enclosed. If I can be of further assistance, please feel free to contact me at Doctor phone number(s): , Work: . Sincerely, Rodo Odonnell MD 12/27/2019 8:18:01 AM This report has been signed electronically.
--- NOTE | 2019-12-27 08:18 | OP.COLON_ITS ---
Patient Name: Pato Bishop Procedure Date: 12/27/2019 7:56 AM Date of : 1950 Age: 69 Procedure: Colonoscopy Indications: Surveillance: Personal history of adenomatous polyps on last colonoscopy 5 years ago Providers: Rodo Odonnell MD Referring MD: Dima Tavarez Medicines: Monitored Anesthesia Care Patient Profile: This is a 69 year old male. Refer to note in patient chart for documentation of history and physical. Last Colonoscopy: 5 years ago. Complications: No immediate complications. Estimated blood loss: Minimal. Procedure: Pre-Anesthesia Assessment: - Prior to the procedure, a History and Physical was performed, and patient medications and allergies were reviewed. The patient's tolerance of previous anesthesia was also reviewed. The risks and benefits of the procedure and the sedation options and risks were discussed with the patient. All questions were answered, and informed consent was obtained. Prior Anticoagulants: The patient has taken Plavix (clopidogrel), last dose was 5 days prior to procedure. After reviewing the risks and benefits, the patient was deemed in satisfactory condition to undergo the procedure. - Prior to the procedure, a History and Physical was performed, and patient medications and allergies were reviewed. The patient's tolerance of previous anesthesia was also reviewed. The risks and benefits of the procedure and the sedation options and risks were discussed with the patient. All questions were answered, and informed consent was obtained. Prior Anticoagulants: The patient has taken Plavix (clopidogrel), last dose was 5 days prior to procedure. After reviewing the risks and benefits, the patient was deemed in satisfactory condition to undergo the procedure. After I obtained informed consent, the scope was passed under direct vision. Throughout the procedure, the patient's blood pressure, pulse, and oxygen saturations were monitored continuously. The Colonoscope was introduced through the anus and advanced to the cecum, identified by appendiceal orifice and ileocecal valve. The colonoscopy was performed without difficulty. The patient tolerated the procedure well. The quality of the bowel preparation was good. Scope In: 7:58:41 AM Scope Withdrawal Time 0 hours 6 minutes 42 seconds Scope Out: 8:12:38 AM Total Procedure Duration Time 0 hours 13 minutes 57 seconds Findings: Three semi-pedunculated polyps were found in the descending colon, transverse colon and cecum. These polyps were removed with a hot snare. Resection and retrieval were complete. The exam was otherwise without abnormality on direct and retroflexion views. Impression: - Three polyps in the descending colon, in the transverse colon and in the cecum, removed with a hot snare. Resected and retrieved. - The examination was otherwise normal on direct and retroflexion views. Recommendation: - Discharge patient to home. - Resume previous diet. - Continue present medications. - Resume Plavix (clopidogrel) at prior dose tomorrow. - Await pathology results. - Repeat colonoscopy in 5 years for surveillance based on pathology results. Procedure Code(s): --- Professional --- 55365, Colonoscopy, flexible; with removal of tumor(s), polyp(s), or other lesion(s) by snare technique Diagnosis Code(s): --- Professional --- Z86.010, Personal history of colonic polyps D12.4, Benign neoplasm of descending colon D12.3, Benign neoplasm of transverse colon (hepatic flexure or splenic flexure) D12.0, Benign neoplasm of cecum CPT copyright 2017 [employer]. All rights reserved. The codes documented in this report are preliminary and upon cork pressing machine operator review may be revised to meet current compliance requirements. Rodo Odonnell MD 12/27/2019 8:18:01 AM This report has been signed electronically. Number of Addenda: 0 Note Initiated On: 12/27/2019 7:56 AM
[2019-12-27 08:20] VITALS: BP 115/53; BP 149/75; PULSE 57; RESP 16; O2SAT 95
[2019-12-27 08:25] VITALS: BP 124/62; BP 149/75; PULSE 57; RESP 16; O2SAT 98
[2019-12-27 08:27] VITALS: BP 131/66; BP 149/75; PULSE 61; RESP 16; TEMP 36.6; O2SAT 99
[2019-12-27 09:03] VITALS: BP 149/75
== END 2019-12-27 09:03 | disposition home or self-care (01) ==
LOC: EN 07:02 → AC 07:03
PROVIDERS: Anesthesiology; PCP Family Medicine; Referring Provider Family Medicine; Visit Provider Surgery
PROC: 0DJD8ZZ Inspection of Lower Intestinal Tract, Via Natural or Artificial Opening Endoscopic (ICD-10-PCS; CPT 45378; principal; 2019-12-27 07:55)
DX: Z12.11 Encounter for screening for malignant neoplasm of colon (principal); E11.40 Type 2 diabetes mellitus with diabetic neuropathy, unspecified; Z79.4 Long term (current) use of insulin; D12.3 Benign neoplasm of transverse colon; D12.4 Benign neoplasm of descending colon; D12.0 Benign neoplasm of cecum; K21.9 Gastro-esophageal reflux disease without esophagitis; I25.10 Atherosclerotic heart disease of native coronary artery without angina pectoris; I25.2 Old myocardial infarction; I10 Essential (primary) hypertension; G25.81 Restless legs syndrome; E78.00 Pure hypercholesterolemia, unspecified; G47.33 Obstructive sleep apnea (adult) (pediatric); Z11.59 Encounter for screening for other viral diseases; Z95.1 Presence of aortocoronary bypass graft; Z95.5 Presence of coronary angioplasty implant and graft; Z79.02 Long term (current) use of antithrombotics/antiplatelets; Z79.82 Long term (current) use of aspirin; Z79.899 Other long term (current) drug therapy; Z86.010 Personal history of colon polyps
CPT/HCPCS: 43235; 45385; 82962; 87635; 88305; C9803; J7120; J2405; U0003

== ENCOUNTER 2020-01-28 01:44 | Observation (INO) | payer OTHER, MEDICARE, SELFPAY ==
[2018-03-21 13:40] VITALS: BMI 31.6
[2020-01-28] VITALS (12 sets, daily range): BP systolic 110–156; BP diastolic 53–75; PULSE 65–96; RESP 16–20; TEMP 36.3–37.1; O2SAT 93–98; BMI 29.5; BMI 28.8
--- NOTE | 2020-01-28 01:54 | RAD_ITS ---
STUDY: X-RAY CHEST REASON FOR EXAM: Male, 69 years old. Chest pain with heart palpitations TECHNIQUE: PA and lateral views of the chest. COMPARISON: 04/13/2019 FINDINGS: Mild prominence of interstitial lung markings at the lung bases, unchanged. No confluent airspace opacity. No pleural effusion. No pneumothorax. Borderline cardiomegaly. Median sternotomy wires and coronary artery bypass graft clips noted. Normal mediastinum and sade. Normal visualized pulmonary arteries. There is atherosclerotic calcification of the aortic arch . There are diffuse degenerative changes of the visualized thoracic spine. Normal visualized ribs, clavicles, and shoulders. There is no demonstrated abnormality of the visualized soft tissue structures of the upper abdomen. RAD/Chest PA and Lateral IMPRESSION: No acute cardiopulmonary disease Electronically Signed: Hernán Barclay MD at 2:28 EDT Tel , Service support ,
--- NOTE | 2020-01-28 01:54 | EKG12_ITS ---
Test Reason : CP ADMIT Blood Pressure : / mmHG Vent. Rate : 073 BPM Atrial Rate : 073 BPM P-R Int : 162 ms QRS Dur : 098 ms QT Int : 410 ms P-R-T Axes : 049 -24 035 degrees QTc Int : 451 ms Normal sinus rhythm Inferior infarct , age undetermined Anterior infarct , age undetermined Abnormal ECG Confirmed by CONCEPCIÓN REYNA, MARIO ([id number]), online editor GENEVA VERA ([id number]) on 01/30/2020 10:22:18 AM Referred By: DR KAM Confirmed By:MARIO BEEBE MD
[2020-01-28 04:33] LABS: International Normalized Ratio 1.2; Partial Thromboplast Time 32.2 Seconds (24.1-36.2); Prothrombin Time (Protime)PT. 14.8 SECONDS (11.7-14.9)
[2020-01-28 04:34] LABS: Anion Gap 11 (5-15); BUN 19 mg/dL (7-18); BUN/Creat Ratio 12.6 RATIO (10-20); Calcium,Total 8.9 mg/dL (8.5-10.1); Chloride 109 mmol/L (98-107); Creatinine, Serum 1.51 mg/dL (0.70-1.30); EST Glomerular Filtration Rate 49 mL/min (>60); Est Glom Filt Rate - Afr Amer 59 mL/min (>60); Estimated Creatinine Clearance 46.33 ml/min; Glucose 139 mg/dL (74-106); Potassium 3.6 mmol/L (3.5-5.1); Sodium Level 141 mmol/L (136-145)
[2020-01-28 04:36] LABS: Absolute Lymphocyte Count 2.73 X10^3/uL (0.83-4.51); Absolute Neutrophil Count 3.8 X10^3/uL (2.0-7.7); Basophil# 0.03 X10^3/uL; Basophil% 0.4 % (0-1); Differential Indicated SCAN CRITERIA MET; Eosinophil# 0.12 X10^3/uL; Eosinophils% 1.6 % (0-5); Hematocrit 38.5 % (40-54); Hemoglobin 12.3 g/dL (13.0-16.5); Lymphocyte # 2.73 X10^3/ul (4.0); Lymphocyte % 36.9 % (19-41); Mean Corp Hgb Conc 31.9 g/dL (32-36); Mean Corpuscular Hgb 26.7 pg (27.0-32.0); Mean Corpuscular Volume 83.5 fL (80-94); Mean Platelet Vol. 12.8 fl (6.2-12.0); Monocyte# 0.68 X10^3/uL; Monocyte% 9.2 % (0-10); NRBC Flagged by Analyzer 0 % (0-5); Neutrophil % 51.5 % (47-70); POSITIVE COUNT YES; Platelet Count 75 K/mm3 (150-450); RBC Distribution Width CV 16.3 % (11.6-14.6); RBC Distribution Width SD 50.1 fl (35.1-43.9); Red Blood Count 4.61 M/mm3 (4.6-6.2); White Blood Count 7.4 K/mm3 (4.4-11.0)
--- NOTE | 2020-01-28 04:38 | ED.RN ---
see down time charting from 0200 until discharge
--- NOTE | 2020-01-28 05:13 | HP.PCM_ITS ---
Problem List (1) Paroxysmal A-fib Status: Acute (2) Chest pain Status: Acute (3) Syncope Status: Acute (4) Diabetes 1.5, managed as type 1 Status: Chronic (5) Nonhealing nonsurgical wound limited to breakdown of skin Status: Chronic (6) Essential hypertension Status: Chronic (7) Atherosclerotic heart disease of [place] coronary artery without angina pectoris Status: Chronic (8) S/P coronary artery stent placement Status: Chronic Comment: PTCA/PHAN of the prox OM2 03/21/18; PTCA/PHAN to the ostium of the LCX 07/05/18 (9) Hx of CABG Status: Chronic (10) NSTEMI (non-ST elevated myocardial infarction) Status: Chronic (11) CAD (coronary artery disease) Status: Chronic (12) HLD (hyperlipidemia) Status: Chronic Qualifiers: (13) Carotid artery disease Status: Chronic (14) Post traumatic stress disorder (PTSD) Status: Chronic (15) Type 2 diabetes mellitus Status: Chronic (16) Neuropathy Status: Chronic (17) Obstructive sleep apnea Status: Chronic (18) Restless legs syndrome Status: Chronic (19) Chronic headaches Status: Chronic (20) Numbness and tingling in right hand Status: Chronic (21) Chest pain Status: Acute (22) Pancreatitis Status: Resolved History of Present Illness Date of Admission: 01/28/20 Chief Complaint: palpitations The patient is a 69 year old M who for months has been having issues with palpitations. The come and go but over the past day, has been much more frequent and symptomatic. At one point because patient have a episode where he leaned towards the wall and then fell down passing out. Fortunately, patient's had landed into a very soft camera bag and did not sustain any injuries. Patient was sent to the emergency room and was found to be in atrial fibrillation but then spontaneously converted to normal sinus rhythm. Patient states he is also been having intermittent chest pain that usually precedes the palpitations. The chest pain is sharp and left-sided. [] Past Medical History Past Medical History (Chronic Problems): Chronic Problems (Last Reviewed 12/09/19 @ 08:54 by Jodi Whyte) Diabetes 1.5, managed as type 1 (Chronic) Nonhealing nonsurgical wound limited to breakdown of skin (Chronic) Essential hypertension (Chronic) Atherosclerotic heart disease of [place] coronary artery without angina pectoris (Chronic) S/P coronary artery stent placement (Chronic ~07/05/18) PTCA/PHAN of the prox OM2 03/21/18; PTCA/PHAN to the ostium of the LCX 07/05/18 Hx of CABG (Chronic ~08/2017) NSTEMI (non-ST elevated myocardial infarction) (Chronic) CAD (coronary artery disease) (Chronic) HLD (hyperlipidemia) (Chronic) Carotid artery disease (Chronic) Post traumatic stress disorder (PTSD) (Chronic) Type 2 diabetes mellitus (Chronic) Neuropathy (Chronic) Obstructive sleep apnea (Chronic) Restless legs syndrome (Chronic) Chronic headaches (Chronic) Numbness and tingling in right hand (Chronic) Medical History: Medical History (Last Reviewed 01/28/20 @ 05:[address] Fransisco Woodward, DO) Essential hypertension (Chronic) I10 Atherosclerotic heart disease of [place] coronary artery without angina pectoris (Chronic) I25.10 NSTEMI (non-ST elevated myocardial infarction) (Chronic) I21.4 CAD (coronary artery disease) (Chronic) I25.10 HLD (hyperlipidemia) (Chronic) E78.5 Carotid artery disease (Chronic) I77.9 Post traumatic stress disorder (PTSD) (Chronic) F43.10 Type 2 diabetes mellitus (Chronic) E11.9 Neuropathy (Chronic) G62.9 Obstructive sleep apnea (Chronic) G47.33 Restless legs syndrome (Chronic) Chronic headaches (Chronic) R51 Numbness and tingling in right hand (Chronic) R20.2 Chest pain (Acute) R07.9 Pancreatitis (Resolved) K85.90 Cataract H26.9 Cataract (lens) fragments in eye following cataract surgery, bilateral H59.023 Severe headache R51 Chronic neck and back pain M54.2, M54.9, G89.29 Allergies oxycodone [From OxyContin] Allergy (Verified 01/28/20 01:45) Shortness of breath atorvastatin [From Lipitor] Adverse Reaction (Verified 01/28/20 01:45) Other muscle weakness fish oil Adverse Reaction (Verified 01/28/20 01:45) Other muscle weakness morphine Adverse Reaction (Verified 01/28/20 01:45) Other MIGRAIN TAO Home Medications: Ambulatory Orders Medication Instructions Recorded Aspirin [Aspirin, Baby] 81 mg PO QODAY 11/21/14 Insulin Aspart [Novolog Flexpen] 24 units SUBCUT BREAKFAST 12/23/16 Insulin Aspart [Novolog Flexpen] 24 units SUBCUT DINNER 12/23/16 Insulin Glargine [Lantus SoloStar 60 units SUBCUT BID 12/23/16 Pen] Multivitamin,Therapeutic [Thera] 1 ea PO DAILY 12/23/16 Pyridoxine HCl [Vitamin B-6] 100 mg PO DAILY 12/23/16 Thiamine HCl [Vitamin B-1] 100 mg PO DAILY 12/23/16 traZODone [Desyrel] 100 mg PO QHS PRN 03/18/17 Lipase/Protease/Amylase [Jacek Valdes 2 cap PO TIDCM 03/20/18 24,000 Units Capsule] Clopidogrel Bisulfate [Plavix] 75 mg PO DAILY #90 tab 03/22/18 fenofibrate micronized 200 mg 200 mg PO DAILY #90 cap 04/23/18 capsule furosemide 20 mg tablet 20 mg PO DAILY #90 tab 04/23/18 ondansetron HCl 8 mg tablet 8 mg PO TID PRN tab 04/23/18 pregabalin 150 mg capsule 150 mg PO BID cap 04/23/18 topiramate 50 mg tablet 50 mg PO QHS tab 04/23/18 insulin aspart U-100 100 unit/mL 18 unit SUBCUT LUNCH ml 07/13/18 (3 mL) subcutaneous pen isosorbide mononitrate 30 mg 30 mg PO DAILY #90 tab 07/13/18 tablet,extended release 24 hr metoprolol succinate 100 mg 100 mg PO DAILY 07/13/18 tablet,extended release 24 hr rosuvastatin 20 mg tablet 20 mg PO DAILY 07/13/18 carbidopa 10 mg-levodopa 100 mg 1 tab PO QHS 12/26/18 tablet diclofenac sodium 1 % topical gel 2 g TOPICAL DAILY PRN 12/26/18 nitroglycerin 0.4 mg sublingual 0.4 mg SUBLINGUAL Q5-15M PRN 12/26/18 tablet omeprazole 40 mg capsule,delayed 40 mg PO DAILY 12/26/18 release Alirocumab [Praluent Pen] 150 mg SQ .Q2WEEK 12/13/19 Surgical History: Surgical History (Last Reviewed 01/28/20 @ 05:[address] Fransisco Woodward, DO) S/P coronary artery stent placement (Chronic) Onset Date: ~07/05/18 Z95.5 PTCA/PHAN of the prox OM2 03/21/18; PTCA/PHAN to the ostium of the LCX 07/05/18 Hx of CABG (Chronic) Onset Date: ~08/2017 Z95.1 History of cholecystectomy Z90.49 History of ankle surgery Z98.890 History of facial surgery Z98.890 Surgical History: coronary bypass surgery, - - Ankle surgery, facial surgery secondary to accident Psychiatric History: Post traumatic stress Smoking Status: Never smoker - *Family History Maternal Family History: Family History (Last Reviewed 01/28/20 @ 05:[address] Fransisco Woodward DO) Mother Cancer Diabetes Heart disease Hypertension Father CVA (cerebral vascular accident) Diabetes Heart disease Hypertension History Items: Cancer Paternal Family History: Family History (Last Reviewed 01/28/20 @ 05:[address] Fransisco Woodward DO) Mother Cancer Diabetes Heart disease Hypertension Father CVA (cerebral vascular accident) Diabetes Heart disease Hypertension History Items: Stroke Review of Systems Constitutional: Denies: Chills, Fever, Weight Change Eyes: Denies: Blurred vision, Double vision HEENT: Denies: Head Aches, Sinus Congestion, Sinus Drainage Cardiovascular: Reports: Chest Pain Respiratory: Denies: Cough, Shortness of breath at rest, Sputum production Gastrointestinal: Denies: Abdominal Pain, Nausea, Vomiting Genitourinary: Denies: Dysuria Musculoskeletal: Denies: Joint Pain, Joint Tenderness Skin: Denies: Rash, Wounds Neurological: Denies: Numbness, Tingling, Focal weakness Psychiatric: Denies: Anxiety, Depression Hematologic/ Lymphatic: Denies: Easy Bruising, Easy Bleeding, Hx of blood clot Comment: All review of systems were negative except as mentioned above in the history of present illness and the other review of systems. VTE Information - Inpt Only VTE Present on Admission: No VTE Mechan Device Prophylaxis: None VTE Pharm Prophylaxis ordered?: No Reason prophylaxis not ordered:: Treatment Not Indicated - Physical Exam Vitals/I&O's: Vital Signs Temp Pulse Resp BP Pulse Ox 36.3 C L 75 16 156/75 H 93 01/28/20 04:37 01/28/20 04:37 01/28/20 04:37 01/28/20 04:37 01/28/20 04:37 Oxygen Delivery Method Room Air Weight: 93.3 kg Body Mass Index (BMI) 29.5 General: Alert, Cooperative, No apparent distress, Well developed, Well nourished HEENT: Atraumatic, Normocephalic Oral: Moist Mucosa, No Gingival or Mucosal Lesions/ Ulcerations Neck: No Nodes, Thyroid Normal Size and Texture Lungs: Clear to auscultation, Normal air movement, No rhonchi, No wheeze, No rales Cardiovascular: Regular rate, Regular Rhythm, Normal S1, Normal S2, No murmurs Abdomen: Bowel Sounds Present, Soft, Non Tender, Non-Distended, No Hepato- splenomegaly, Obese Extremities: No edema, No Calf Tenderness Skin: No rashes, No breakdown Musculoskeletal: No Tenderness to Palpation of Joints or Extremities, No Muscle Wasting Neurological: Deep Tendon Reflexes 2+/4 and Symmetrical, - - No clonus Psych/Mental Status: Normal Affect, Appropriate Laboratory Results 01/28/20 01:45: WBC 7.4, RBC 4.61, Hgb 12.3 L, Hct 38.5 L, MCV 83.5, MCH 26.7 L, MCHC 31.9 L, RDW Std Deviation 50.1 H, RDW Coeff of [place] 16.3 H, Plt Count 75 L, MPV 12.8 H, Immature Gran % (Auto) 0.400, Neut % (Auto) 51.5, Lymph % (Auto) 36.9, Stephens % (Auto) 9.2, Eos % (Auto) 1.6, Baso % (Auto) 0.4, Absolute Neuts (au to) 3.8, Absolute Lymphs (auto) 2.73, Nucleated RBC % 0 01/28/20 01:45: PT 14.8, INR 1.2, APTT 32.2 01/28/20 01:45: Sodium 141, Potassium 3.6, Chloride 109 H, Carbon Dioxide 21.0, Anion Gap 11, BUN 19 H, Creatinine 1.51 H, Estim Creat Clear Calc 46.33, Est GFR (MDRD) Af Amer 59 L, Est GFR (MDRD) Non-Af 49 L, BUN/Creatinine Ratio 12.6, Glucose 139 H, Calcium 8.9, Troponin I < 0.015 Assessment/Plan All Active Problems (Last Reviewed 12/09/19 @ 08:54 by Jodi Whyte) Paroxysmal A-fib (Acute) Chest pain (Acute) Syncope (Acute) Chest pain (Acute) Pancreatitis (Resolved) 1. Paroxysmal atrial fibrillation: Has been occurring with much more frequency as of late. And patient had an episode where he had a syncopal episode. I do not feel that this was a lethal arrhythmia but more of a vagal episode that the patient had related with the atrial fibrillation. Patient is already on 100 mg of metoprolol succinate per day. Will check an echocardiogram but also consult cardiology for further input and recommendations. Patient states that he is on warfarin however is not showing up on his med list. Try to pin the patient down as to why he would be on warfarin and he was not able to tell me why. Patient's INR is only 1.2. Will initiate enoxaparin weight-based at this time. 2. Syncope: Thought to be vasovagal related with the paroxysmal atrial fibrillation. Patient will be monitored to make sure he does not have any other type of arrhythmia that could be potentially contributing to this. This was a one-time event in regards to the syncope. 3. Chest pain: Atypical. I suspect his primary related with the paroxysmal atrial fibrillation but cannot rule out ischemia. Cycle troponins and check a stress test. 4. Diabetes mellitus type 2: Continue with this home medications and sliding scale insulin. 5. VTE prophylaxis: Not indicated as patient is already anticoagulated. 6. Advanced care planning: Patient stated that he want CPR but did not want to be on life support. Told the patient that if he were to have cardiac arrest and required CPR and if he were to survive, he would likely require being on a ventilator. His daughter, who is present said to ignore that. Told her that I cannot do that specifically but encouraged the patient to discuss further with his family. I told him that I would leave him at full CODE STATUS if the event if he had a cardiac arrest and he seemed to be in agreement with that. Inpatient E&M: 31439 Init Hosp L3
--- NOTE | 2020-01-28 05:15 | ECHOCS_ITS ---
Reason For Study: PAF Procedure This was a 2D Doppler, Color Flow transthoracic echocardiogram. The study was technically difficult. Contrast injection was performed. Exam performed in department. Left Ventricle Normal LV size. Mild concentric left ventricular hypertrophy. Segmental dysfunction with preserved ejection fraction (see wall motion). The estimated ejection fraction is 55 %. Diastolic function is indeterminate. [place] : Akinetic. Right Ventricle Normal RV size. Normal systolic function. Atria The left atrium is mildly enlarged. Normal right atrium. No doppler evidence for ASD. Mitral Valve There is mild mitral annular calcification. Mild diffuse mitral valve thickening. Mild mitral valve stenosis. Trivial mitral valve insufficiency. Tricuspid Valve Normal tricuspid valve. Trivial tricuspid valve insufficiency. Right ventricular systolic pressure estimated to be 17 mmHg. Aortic Valve Trisinus/trileaflet aortic valve. Mild diffuse aortic valve thickening. Mild focal aortic valve calcification. Pulmonic Valve The pulmonic valve is not well visualized. Trivial pulmonic valve insufficiency. Great Vessels Normal sized aortic root. Pericardium/Pleural No pericardial effusion. Medication Diluted definity 2ml given slow IV push to enhance endocardial definition. MMode/2D Measurements & Calculations LVIDd: 4.2 cm IVSd: 1.4 cm LVOT diam: 2.0 cm LVIDs: 2.1 cm LVPWd: 1.4 cm FS: 49.3 % LVOT area: 3.2 cm2 Ao root diam: 3.5 cm LAV(MOD-bp): 75.4 ml LVAd ap4: 40.1 cm2 LA dimension: 4.0 cm LAV(MOD-sp2): 82.5 ml EDV(MOD-sp4): 148.3 ml LAV(MOD-sp4): 69.2 ml EDV(sp4-el): 161.9 ml LVAs ap4: 25.7 cm2 ESV(MOD-sp4): 65.0 ml ESV(sp4-el): 69.6 ml EF(MOD-sp4): 56.2 % EF(sp4-el): 57.0 % SV(MOD-sp4): 83.3 ml SV(sp4-el): 92.3 ml LA A4 area: 21.9 cm2 RA A4 area: 18.6 cm2 Time Measurements MV dec time: 0.31 sec Doppler Measurements & Calculations MV E max fazal: 114.3 cm/sec Lat Peak E' Fazal: 9.3 cm/sec Med Peak E' Fazal: 7.5 cm/sec MV A max fazal: 67.9 cm/sec E/E' lat: 12.3 E/E' med: 15.3 MV E/A: 1.7 MV V2 max: 123.1 cm/sec MV P1/2t max fazal: 123.8 cm/sec Ao V2 max: 89.7 cm/sec MV max P.1 mmHg MV P1/2t: 129.7 msec Ao max P.2 mmHg MV V2 mean: 67.1 cm/sec MV dec slope: 279.5 cm/sec2 ZULEMA(V,D): 2.9 cm2 MV mean P.2 mmHg MVA(P1/2t): 1.7 cm2 MV V2 VTI: 37.3 cm LV V1 max: 83.7 cm/sec PA V2 max: 104.0 cm/sec TR max fazal: 188.1 cm/sec LV V1 max P.8 mmHg TR max P.2 mmHg Interpretation Summary The study was technically difficult. Contrast injection was performed. Mild concentric left ventricular hypertrophy. The left atrium is mildly enlarged. There is mild mitral annular calcification. Mild diffuse mitral valve thickening. Mild mitral valve stenosis. Trivial mitral valve insufficiency. Trivial tricuspid valve insufficiency. Mild diffuse aortic valve thickening. Mild focal aortic valve calcification. Trivial pulmonic valve insufficiency. Right ventricular systolic pressure estimated to be 17 mmHg. Diastolic function is indeterminate. Ordering Physician: Fransisco Woodward Referring Physician: Dima Tavarez Performed By: Adrien Clifford RCS
--- NOTE | 2020-01-28 05:55 | EKG12_ITS ---
Test Reason : CP Blood Pressure : / mmHG Vent. Rate : 104 BPM Atrial Rate : 117 BPM P-R Int : 000 ms QRS Dur : 096 ms QT Int : 366 ms P-R-T Axes : 000 -31 023 degrees QTc Int : 481 ms Atrial fibrillation with rapid ventricular response Left axis deviation Inferior infarct , age undetermined Anterolateral infarct , age undetermined Abnormal ECG Confirmed by DAVID REYNA, EVANGELISTA ([id number]), department editor GENEVA VERA ([id number]) on 02/03/2020 8:42:30 A M Referred By: MR Confirmed By:PAIGE HERNANDEZ MD
[2020-01-28 06:13] LABS: Anion Gap 9 (5-15); BUN 20 mg/dL (7-18); BUN/Creat Ratio 14.7 RATIO (10-20); Calcium,Total 8.8 mg/dL (8.5-10.1); Chloride 106 mmol/L (98-107); Creatinine, Serum 1.36 mg/dL (0.70-1.30); EST Glomerular Filtration Rate 55 mL/min (>60); Est Glom Filt Rate - Afr Amer 66 mL/min (>60); Estimated Creatinine Clearance 51.44 ml/min; Glucose 130 mg/dL (74-106); Potassium 4.3 mmol/L (3.5-5.1); Sodium Level 137 mmol/L (136-145); Thyroid Stim Hormone (TSH) 2.75 uIU/mL (0.358-3.74)
[2020-01-28] MEDS: Aspirin 81 MG TAB.CHEW PO (06:39)
[2020-01-28] MEDS: Clopidogrel Bisulfate 75 MG Tablet PO (06:39)
[2020-01-28 07:43] LABS: Bedside Glucose 118 mg/dL (70-110)
--- NOTE | 2020-01-28 11:42 | STRESSREP ---
Stress Test Report Date: Procedure: Pharmacologic stress nuclear imaging study Indications: Chest pain; CAD; PCI; CABG; PAF Consent: Per the patient Procedure: The patient underwent pharmacologic (Regadenoson) evaluation with a peak heart rate of 70 beats per minute (46%predicted maximal heart rate) and a peak blood pressure of 129/73 mmHg. The baseline ECG demonstrated normal sinus rhythm; anterolateral [place], indeterminate age, cannot be excluded. The peak pharmacologic ECG demonstrated no obvious ECG changes. There were no cardiac dysrhythmias pretest, during pharmacologic infusion, or recovery. There was no complaint of chest discomfort during pharmacologic infusion or recovery. The examination was discontinued secondary to completion of protocol. Impression: 1. Pharmacologic (Regadenoson) evaluation 2. Peak pharmacologic ECG with no obvious ECG changes. 3. There were no cardiac dysrhythmias pretest, during pharmacologic infusion, or recovery. 4. Nuclear images pending Myocardial perfusion imaging study: Technique: The patient was injected with millicuries of technetium 99m Cardiolite and subsequently rest SPECT Cardiolite nuclear imaging was obtained in the horizontal long, vertical long, and short axis views. The patient underwent pharmacologic (Regadenoson) evaluation with a peak heart rate of 70 beats per minute (46% percent predicted maximal heart rate) and a peak blood pressure of 129/73 mmHg. The patient was injected with millicuries of technetium 99m Cardiolite and subsequently stress SPECT Cardiolite nuclear imaging was obtained in the horizontal long, vertical long, and short axis views. A gated Cardiolite study at peak stress was obtained. Interpretation: Rest and stress SPECT Cardiolite nuclear imaging status post realignment, normalization, and attenuation correction demonstrate the appearance of diminished absence of myocardial perfusion/tracer uptake in portions of the distal anteroseptal/inferoseptal segments as well as the apical segments. There is diminished end systolic thickening and brightening in the aforementioned areas. The gated Cardiolite study demonstrates the appearance of dyskinesis in the apical areas. The reported LVEF is 62 %. Impression: 1. Rest and stress SPECT Cardiolite imaging demonstrate myocardial perfusion changes appearing compatible with the effects of previous myocardial injury/infarction with no myocardial perfusion changes considered diagnostic for associated stress-induced myocardial ischemia. 2. The gated Cardiolite study reports an LVEF of 62%. This note was generated with Indice[employer] software. It may contain incorrect words, spelling, and punctuation that were not noted in checking the note before signing.
[2020-01-28] MEDS: Metoprolol(XL)Succ 100 MG Tablet PO (11:46)
[2020-01-28] MEDS: Pantoprazole Sodium 40 MG Tablet PO (11:46)
[2020-01-28] MEDS: Furosemide 20 MG Tablet PO (11:47)
[2020-01-28] MEDS: Fenofibrate 145 MG Tablet PO (11:47)
[2020-01-28] MEDS: Isosorbide Mononitrate 30 MG Tablet PO (11:49)
[2020-01-28] MEDS: Enoxaparin 100 MG/ML Syringe 90 MG SC ×2 (11:51→21:22)
[2020-01-28] MEDS: Pregabalin 75 MG Capsule 150 MG PO ×2 (11:56→21:34)
[2020-01-28] MEDS: Insulin Lispro 100 UNIT/ML INSULN.PEN 18 UNIT SC (11:59)
[2020-01-28 12:35] LABS: Bedside Glucose 144 mg/dL (70-110)
--- NOTE | 2020-01-28 14:05 | CASEMGMT ---
RN VESTA Face to Face with patient for initial transition planning/care coordination assessment. RN CM introduced self and role at [facility]. Patient lying in bed, alert and oriented, at bedside Patient willing to participate in assessment and is able to answer all questions appropriately. Care providers, pharmacy, and demographics verified. Patient wishes to discharge home, denies need for home health at this time. Patient states he has no further needs or concerns at this time. CM to follow for discharge planning needs that may arise. PCP: Dima Tavarez [facility] Specialists: [facility] Preferred Pharmacy: [facility] Insurance: [place], [place] Pres[place] Benefit: yes Living Will/HPOA: yes, Julia Bishop LNOK: Living Arrangements: Patient lives with in a 2 story home. Patient states he is independent and able to ambulate stairs. Transportation: self, DME/HHC: Patient states he has a cane at home, denies further DME. No previous HHC. Disposition Plan: Patient to discharge home with family support and follow-up plans in place. Marisa GUTIERREZ, RN, CM
[2020-01-28] MEDS: Pyridoxine HCl 100 MG Tablet PO (16:56)
[2020-01-28] MEDS: Thiamine Hydrochloride 100 MG Tablet PO (16:56)
[2020-01-28] MEDS: Multivitamins,Therapeutic Tablet 1 TABLET PO ×2 (16:56)
[2020-01-28 17:06] LABS: Bedside Glucose 142 mg/dL (70-110)
[2020-01-28] MEDS: Insulin Lispro 100 UNIT/ML INSULN.PEN 24 UNIT SC (17:06)
--- NOTE | 2020-01-28 17:11 | PCM.CONS.C ---
Reason for Consult Date of Consultation: 01/28/20 Reason for Consultation: atrial fib History of Present Illness: The patient is a 69 year old M who for months has been having issues with palpitations. The come and go but over the past day, has been much more frequent and symptomatic. At one point because patient have a episode where he leaned towards the wall and then fell down passing out. Fortunately, patient's had landed into a very soft camera bag and did not sustain any injuries. Patient was sent to the emergency room and was found to be in atrial fibrillation but then spontaneously converted to normal sinus rhythm. Patient states he is also been having intermittent chest pain that usually precedes the palpitations. The chest pain is sharp and left-sided. Patient states that he has noticed his heart rate to be in the 130s all of a sudden and then it comes down to the 60s to 70s. He has noticed that on his iWatch. He does have symptoms of shortness of breath, fatigue when his heart rate goes up. Patient was admitted to the PCU and his cardiac enzymes were cycled. He had a stress test which did not reveal any significant ischemia. His EF was preserved. He had a 2D echo which did not show abnormalities that could explain his symptoms. Patient converted to sinus rhythm and is currently in normal sinus rhythm. He does have a [place] database security expert who he follows with. Review of systems: All systems reviewed. All else is negative except as in HPI Past Medical History Allergies/Adverse Reactions: Allergies oxycodone [From OxyContin] Allergy (Verified 01/28/20 01:45) Shortness of breath atorvastatin [From Lipitor] Adverse Reaction (Verified 01/28/20 01:45) Other muscle weakness fish oil Adverse Reaction (Verified 01/28/20 01:45) Other muscle weakness morphine Adverse Reaction (Verified 01/28/20 01:45) Other MIGRAIN TAO Home Medications: Ambulatory Orders Medication Instructions Recorded Aspirin [Aspirin, Baby] 81 mg PO DAILY 11/21/14 Insulin Aspart [Novolog Flexpen] 18 units SUBCUT BREAKFAST 12/23/16 Insulin Aspart [Novolog Flexpen] 18 units SUBCUT DINNER 12/23/16 Insulin Glargine [Lantus SoloStar 45 units SUBCUT BID 12/23/16 Pen] Multivitamin,Therapeutic [Thera] 1 ea PO DAILY 12/23/16 Pyridoxine HCl [Vitamin B-6] 100 mg PO DAILY 12/23/16 Thiamine HCl [Vitamin B-1] 100 mg PO DAILY 12/23/16 traZODone [Desyrel] 100 mg PO QHS PRN 03/18/17 Lipase/Protease/Amylase [Jacek Dr 2 cap PO TIDCM 03/20/18 24,000 Units Capsule] Clopidogrel Bisulfate [Plavix] 75 mg PO DAILY #90 tab 03/22/18 fenofibrate micronized 200 mg 200 mg PO DAILY #90 cap 04/23/18 capsule furosemide 20 mg tablet 20 mg PO DAILY #90 tab 04/23/18 ondansetron HCl 8 mg tablet 8 mg PO TID PRN tab 04/23/18 pregabalin 150 mg capsule 150 mg PO BID cap 04/23/18 topiramate 50 mg tablet 50 mg PO QHS tab 04/23/18 insulin aspart U-100 100 unit/mL 18 unit SUBCUT LUNCH ml 07/13/18 (3 mL) subcutaneous pen isosorbide mononitrate 30 mg 30 mg PO DAILY #90 tab 07/13/18 tablet,extended release 24 hr metoprolol succinate 100 mg 100 mg PO DAILY 07/13/18 tablet,extended release 24 hr rosuvastatin 20 mg tablet 20 mg PO DAILY 07/13/18 carbidopa 10 mg-levodopa 100 mg 1 tab PO QHS 12/26/18 tablet diclofenac sodium 1 % topical gel 2 g TOPICAL DAILY PRN 12/26/18 nitroglycerin 0.4 mg sublingual 0.4 mg SUBLINGUAL Q5-15M PRN 12/26/18 tablet omeprazole 40 mg capsule,delayed 40 mg PO DAILY 12/26/18 release Alirocumab [Praluent Pen] 150 mg SQ .Q2WEEK 12/13/19 Past Medical History (Chronic Problems): Chronic Problems (Last Reviewed 01/28/20 @ 05:[address] Fransisco Woodward, DO) Diabetes 1.5, managed as type 1 (Chronic) Nonhealing nonsurgical wound limited to breakdown of skin (Chronic) Essential hypertension (Chronic) Atherosclerotic heart disease of [place] coronary artery without angina pectoris (Chronic) S/P coronary artery stent placement (Chronic ~07/05/18) PTCA/PHAN of the prox OM2 03/21/18; PTCA/PHAN to the ostium of the LCX 07/05/18 Hx of CABG (Chronic ~08/2017) NSTEMI (non-ST elevated myocardial infarction) (Chronic) CAD (coronary artery disease) (Chronic) HLD (hyperlipidemia) (Chronic) Carotid artery disease (Chronic) Post traumatic stress disorder (PTSD) (Chronic) Type 2 diabetes mellitus (Chronic) Neuropathy (Chronic) Obstructive sleep apnea (Chronic) Restless legs syndrome (Chronic) Chronic headaches (Chronic) Numbness and tingling in right hand (Chronic) Surgical History: coronary bypass surgery, - - Ankle surgery, facial surgery secondary to accident Psychiatric History: Post traumatic stress - *Family History Maternal Family History: Family History (Last Reviewed 01/28/20 @ 05:[address] Fransisco Woodward DO) Mother Cancer Diabetes Heart disease Hypertension Father CVA (cerebral vascular accident) Diabetes Heart disease Hypertension History Items: Cancer Paternal Family History: Family History (Last Reviewed 01/28/20 @ 05:[address] Fransisco Woodward DO) Mother Cancer Diabetes Heart disease Hypertension Father CVA (cerebral vascular accident) Diabetes Heart disease Hypertension History Items: Stroke Smoking Status: Never smoker Objective: Vital Signs Temp Pulse Resp BP Pulse Ox 98.0 F 68 18 110/55 L 94 01/28/20 16:45 01/28/20 16:45 01/28/20 16:45 01/28/20 16:45 01/28/20 16:45 Oxygen Delivery Method Room Air Weight: 200 lb 9.93 oz Body Mass Index (BMI) 28.8 Intake and Output for Last 24 Hours 01/26/20 01/27/20 01/28/20 23:59 23:59 23:59 Intake Total 200 / 200 Balance 200 / 200 General: Awake, Alert, Oriented x 3 HEENT: Atraumatic Oral: Moist Mucosa Neck: Supple Psych/Mental Status: Appropriate 01/28/20 01:45: WBC 7.4, RBC 4.61, Hgb 12.3 L, Hct 38.5 L, MCV 83.5, MCH 26.7 L, MCHC 31.9 L, Plt Count 75 L, MPV 12.8 H, Immature Gran % (Auto) 0.400, Neut % (Auto) 51.5, Lymph % (Auto) 36.9, [place] % (Auto) 9.2, Eos % (Auto) 1.6, Baso % (Auto) 0.4, Absolute Neuts (auto) 3.8, Nucleated RBC % 0 01/28/20 01:45: PT 14.8, INR 1.2, APTT 32.2 01/28/20 01:45: Sodium 141, Potassium 3.6, Chloride 109 H, Carbon Dioxide 21.0, Anion Gap 11, BUN 19 H, Creatinine 1.51 H, Est GFR (MDRD) Af Amer 59 L, Est GFR (MDRD) Non-Af 49 L, BUN/Creatinine Ratio 12.6, Glucose 139 H, Calcium 8.9, Troponin I < 0.015 01/28/20 05:30: Sodium 137, Potassium 4.3, Chloride 106, Carbon Dioxide 22.0, Anion Gap 9, BUN 20 H, Creatinine 1.36 H, Est GFR (MDRD) Af Amer 66, Est GFR (MDRD) Non-Af 55 L, BUN/Creatinine Ratio 14.7, Glucose 130 H, Calcium 8.8 01/28/20 05:30: Troponin I 0.020 01/28/20 08:50: Troponin I 0.020 Rhythm: EKG: ECHO: Stress Test: Cardiac Cath: PCI: CT Surgery: Holter monitor: EPS: PPM: CXR: Chest CT Scan: Assessment/Plan 1. Syncope: Work-up so far has been unremarkable. He had a stress test and 2D echo. Telemetry monitoring has not revealed any significant tachy or bradyarrhythmias. I think it will be reasonable to get a 30-day event monitor upon discharge. He can follow-up with his primary database security expert for the results and further recommendations. 2. Paroxysmal atrial fibrillation: Patient states that there are times when his heart rate goes low. So at this time I will not increase his beta-yonatan. Continue beta-yonatan at current dose and he can follow-up with primary database security expert. He may need EP referral for possible ablation. He just had a syncopal event and fall related to that. I feel that it is reasonable not to start him on anticoagulation yet. 3. Coronary artery disease: Patient has history of CABG and stents. Stable from the standpoint at this time. His stress test today did not reveal any significant ischemia. Continue present management.
[2020-01-28] MEDS: Topiramate 50 MG Tablet PO (21:25)
[2020-01-29 02:57] VITALS: PULSE 65
[2020-01-29 03:05] VITALS: BP 119/49; PULSE 66; RESP 16; TEMP 36.6; O2SAT 95
[2020-01-29 05:31] LABS: Absolute Lymphocyte Count 2.53 X10^3/uL (0.83-4.51); Absolute Neutrophil Count 2.8 X10^3/uL (2.0-7.7); Basophil# 0.03 X10^3/uL; Basophil% 0.5 % (0-1); Eosinophil# 0.11 X10^3/uL; Eosinophils% 1.8 % (0-5); Hematocrit 39.7 % (40-54); Hemoglobin 12.1 g/dL (13.0-16.5); Lymphocyte # 2.53 X10^3/ul (4.0); Lymphocyte % 42.4 % (19-41); Mean Corp Hgb Conc 30.5 g/dL (32-36); Mean Corpuscular Hgb 25.8 pg (27.0-32.0); Mean Corpuscular Volume 84.6 fL (80-94); Mean Platelet Vol. 11.9 fl (6.2-12.0); Monocyte# 0.51 X10^3/uL; Monocyte% 8.5 % (0-10); NRBC Flagged by Analyzer 0 % (0-5); Neutrophil # 2.77 X10^3/uL (2.7-7.7); Neutrophil % 46.5 % (47-70); POSITIVE COUNT YES; Platelet Count 76 K/mm3 (150-450); RBC Distribution Width CV 16.7 % (11.6-14.6); RBC Distribution Width SD 51.6 fl (35.1-43.9); Red Blood Count 4.69 M/mm3 (4.6-6.2)
[2020-01-29 05:42] LABS: Anion Gap 6 (5-15); BUN 20 mg/dL (7-18); BUN/Creat Ratio 15.7 RATIO (10-20); Calcium,Total 8.9 mg/dL (8.5-10.1); Chloride 106 mmol/L (98-107); Creatinine, Serum 1.27 mg/dL (0.70-1.30); EST Glomerular Filtration Rate 59 mL/min (>60); Est Glom Filt Rate - Afr Amer 72 mL/min (>60); Estimated Creatinine Clearance 55.09 ml/min; Glucose 121 mg/dL (74-106); Potassium 3.9 mmol/L (3.5-5.1); Sodium Level 136 mmol/L (136-145)
[2020-01-29 07:00] VITALS: PULSE 66
[2020-01-29 07:53] VITALS: O2SAT 98
[2020-01-29] MEDS: Insulin Lispro 100 UNIT/ML INSULN.PEN SC (08:12)
[2020-01-29] MEDS: Insulin Lispro 100 UNIT/ML INSULN.PEN 24 UNIT SC (08:12)
[2020-01-29 08:16] LABS: Bedside Glucose 154 mg/dL (70-110)
[2020-01-29 08:18] LABS: Bedside Glucose 111 mg/dL (70-110)
--- NOTE | 2020-01-29 08:45 | DCINST_ITS ---
- Discharge Diagnoses Current Active Problems: Current Active and Chronic Problems (Last Reviewed 01/28/20 @ 05:[address] Farnsisco Woodward, DO) Paroxysmal A-fib (Acute) Chest pain (Acute) Syncope (Acute) Diabetes 1.5, managed as type 1 (Chronic) Nonhealing nonsurgical wound limited to breakdown of skin (Chronic) Essential hypertension (Chronic) Atherosclerotic heart disease of [place] coronary artery without angina pectoris (Chronic) S/P coronary artery stent placement (Chronic ~07/05/18) PTCA/PHAN of the prox OM2 03/21/18; PTCA/PHAN to the ostium of the LCX 07/05/18 Hx of CABG (Chronic ~08/2017) NSTEMI (non-ST elevated myocardial infarction) (Chronic) CAD (coronary artery disease) (Chronic) HLD (hyperlipidemia) (Chronic) Carotid artery disease (Chronic) Post traumatic stress disorder (PTSD) (Chronic) Type 2 diabetes mellitus (Chronic) Neuropathy (Chronic) Obstructive sleep apnea (Chronic) Restless legs syndrome (Chronic) Chronic headaches (Chronic) Numbness and tingling in right hand (Chronic) Chest pain (Acute) You will use the following diet at home:: Calorie/Carbohydrate Controlled (specify 1200, 1400, etc), Cardiac Your food should be the consistency of: Regular Your liquids should be the consistency of: Regular/Thin Discharge Activity: Return to Normal Activity, No Restrictions, May Drive Additional Instructions: F/U with Primary Metal Cans Supervisor at [facility] Allergies/Adverse Reactions: Allergies oxycodone [From OxyContin] Allergy (Verified 01/28/20 01:45) Shortness of breath atorvastatin [From Lipitor] Adverse Reaction (Verified 01/28/20 01:45) Other muscle weakness fish oil Adverse Reaction (Verified 01/28/20 01:45) Other muscle weakness morphine Adverse Reaction (Verified 01/28/20 01:45) Other MIGRAIN TAO Medications to take at Discharge Insulin Aspart [Novolog Flexpen] 18 units SUBCUT BREAKFAST 12/23/16 Insulin Aspart [Novolog Flexpen] 18 units SUBCUT DINNER 12/23/16 Insulin Glargine [Lantus SoloStar Pen] 45 units SUBCUT BID 12/23/16 Multivitamin,Therapeutic [Thera] 1 ea PO DAILY 12/23/16 Pyridoxine HCl [Vitamin B-6] 100 mg PO DAILY 12/23/16 Thiamine HCl [Vitamin B-1] 100 mg PO DAILY 12/23/16 traZODone [Desyrel] 100 mg PO QHS PRN 03/18/17 Lipase/Protease/Amylase [Jacek Dr 24,000 Units Capsule] 2 cap PO TIDCM 03/20/18 Clopidogrel Bisulfate [Plavix] 75 mg PO DAILY #90 tab 03/22/18 fenofibrate micronized 200 mg capsule 200 mg PO DAILY #90 cap 04/23/18 furosemide 20 mg tablet 20 mg PO DAILY #90 tab 04/23/18 ondansetron HCl 8 mg tablet 8 mg PO TID PRN tab 04/23/18 pregabalin 150 mg capsule 150 mg PO BID cap 04/23/18 topiramate 50 mg tablet 50 mg PO QHS tab 04/23/18 insulin aspart U-100 100 unit/mL (3 mL) subcutaneous pen 18 unit SUBCUT LUNCH ml 07/13/18 isosorbide mononitrate 30 mg tablet,extended release 24 hr 30 mg PO DAILY #90 tab 07/13/18 metoprolol succinate 100 mg tablet,extended release 24 hr 100 mg PO DAILY 07/13/18 rosuvastatin 20 mg tablet 20 mg PO DAILY 07/13/18 carbidopa 10 mg-levodopa 100 mg tablet 1 tab PO QHS 12/26/18 diclofenac sodium 1 % topical gel 2 g TOPICAL DAILY PRN 12/26/18 nitroglycerin 0.4 mg sublingual tablet 0.4 mg SUBLINGUAL Q5-15M PRN 12/26/18 omeprazole 40 mg capsule,delayed release 40 mg PO DAILY 12/26/18 Alirocumab [Praluent Pen] 150 mg SQ .Q2WEEK 12/13/19 Apixaban [Eliquis] 5 mg PO BID #30 tab 01/29/20 Clopidogrel Bisulfate [Plavix] 75 mg PO DAILY tab 01/29/20 The following prescriptions were given: Apixaban [Eliquis] 5 mg PO BID #30 tab Transmission Status: Pending to [id number] Primary Care Physician: Dima Tavarez MD [Primary Care Provider] - Please follow up with your Primary Care Physician in: 1-2 weeks Test Results: Test results from this visit will be discussed in further detail at your follow- up appointment, if applicable. Please Follow Up With: [facility] When: As soon as you are able to get an appt
--- NOTE | 2020-01-29 08:47 | DS.PCM_ITS ---
Discharge Date and Diagnosis - Problem List Patient Problems: Active and Suspected Problems (Last Reviewed 01/28/20 @ 05:[address] Fransisco Woodward DO) Paroxysmal A-fib (Acute) Chest pain (Acute) Syncope (Acute) Chest pain (Acute) Date of Admission: 01/28/20 Date of Discharge: 01/29/20 - Primary Discharge Diagnosis Acute Problems: Active Problems (Last Reviewed 01/28/20 @ 05:[address] Fransisco Woodward DO) Paroxysmal A-fib (Acute) Chest pain (Acute) Syncope (Acute) Chest pain (Acute) - Secondary Discharge Diagnosis Chronic Problems: Chronic Problems (Last Reviewed 01/28/20 @ 05:[address] Fransisco Woodward DO) Diabetes 1.5, managed as type 1 (Chronic) Nonhealing nonsurgical wound limited to breakdown of skin (Chronic) Essential hypertension (Chronic) Atherosclerotic heart disease of [place] coronary artery without angina pectoris (Chronic) S/P coronary artery stent placement (Chronic ~07/05/18) PTCA/PHAN of the prox OM2 03/21/18; PTCA/PHAN to the ostium of the LCX 07/05/18 Hx of CABG (Chronic ~08/2017) NSTEMI (non-ST elevated myocardial infarction) (Chronic) CAD (coronary artery disease) (Chronic) HLD (hyperlipidemia) (Chronic) Carotid artery disease (Chronic) Post traumatic stress disorder (PTSD) (Chronic) Type 2 diabetes mellitus (Chronic) Neuropathy (Chronic) Obstructive sleep apnea (Chronic) Restless legs syndrome (Chronic) Chronic headaches (Chronic) Numbness and tingling in right hand (Chronic) Hospital Course and Treatment Imaging Results: Reason For Study: PAF Procedure This was a 2D Doppler, Color Flow transthoracic echocardiogram. The study was technically difficult. Contrast injection was performed. Exam performed in department. Left Ventricle Normal LV size. Mild concentric left ventricular hypertrophy. Segmental dysfunction with preserved ejection fraction (see wall motion). The estimated ejection fraction is 55 %. Diastolic function is indeterminate. [place] : Akinetic. Right Ventricle Normal RV size. Normal systolic function. Atria The left atrium is mildly enlarged. Normal right atrium. No doppler evidence for ASD. Mitral Valve There is mild mitral annular calcification. Mild diffuse mitral valve thickening. Mild mitral valve stenosis. Trivial mitral valve insufficiency. Tricuspid Valve Normal tricuspid valve. Trivial tricuspid valve insufficiency. Right ventricular systolic pressure estimated to be 17 mmHg. Aortic Valve Trisinus/trileaflet aortic valve. Mild diffuse aortic valve thickening. Mild focal aortic valve calcification. Pulmonic Valve The pulmonic valve is not well visualized. Trivial pulmonic valve insufficiency. Great Vessels Normal sized aortic root. Pericardium/Pleural No pericardial effusion. Medication Diluted definity 2ml given slow IV push to enhance endocardial definition. MMode/2D Measurements & Calculations LVIDd: 4.2 cm IVSd: 1.4 cm LVOT diam: 2.0 cm LVIDs: 2.1 cm LVPWd: 1.4 cm FS: 49.3 % LVOT area: 3.2 cm2 _ Ao root diam: 3.5 cm LAV(MOD-bp): 75.4 ml LVAd ap4: 40.1 cm2 LA dimension: 4.0 cm LAV(MOD-sp2): 82.5 ml EDV(MOD-sp4): 148.3 ml LAV(MOD-sp4): 69.2 ml EDV(sp4-el): 161.9 ml LVAs ap4: 25.7 cm2 ESV(MOD-sp4): 65.0 ml ESV(sp4-el): 69.6 ml EF(MOD-sp4): 56.2 % EF(sp4-el): 57.0 % _ SV(MOD-sp4): 83.3 ml SV(sp4-el): 92.3 ml LA A4 area: 21.9 cm2 _ RA A4 area: 18.6 cm2 Time Measurements MV dec time: 0.31 sec Doppler Measurements & Calculations MV E max fazal: 114.3 cm/sec Lat Peak E' Fazal: 9.3 cm/sec Med Peak E' Fazal: 7.5 cm/sec MV A max fazal: 67.9 cm/sec E/E' lat: 12.3 E/E' med: 15.3 MV E/A: 1.7 _ MV V2 max: 123.1 cm/sec MV P1/2t max fazal: 123.8 cm/sec Ao V2 max: 89.7 cm/sec MV max P.1 mmHg MV P1/2t: 129.7 msec Ao max P.2 mmHg MV V2 mean: 67.1 cm/sec MV dec slope: 279.5 cm/sec2 ZULEMA(V,D): 2.9 cm2 MV mean P.2 mmHg MVA(P1/2t): 1.7 cm2 MV V2 VTI: 37.3 cm _ LV V1 max: 83.7 cm/sec PA V2 max: 104.0 cm/sec TR max fazal: 188.1 cm/sec LV V1 max P.8 mmHg TR max P.2 mmHg Interpretation Summary The study was technically difficult. Contrast injection was performed. Mild concentric left ventricular hypertrophy. The left atrium is mildly enlarged. There is mild mitral annular calcification. Mild diffuse mitral valve thickening. Mild mitral valve stenosis. Trivial mitral valve insufficiency. Trivial tricuspid valve insufficiency. Mild diffuse aortic valve thickening. Mild focal aortic valve calcification. Trivial pulmonic valve insufficiency. Right ventricular systolic pressure estimated to be 17 mmHg. Diastolic function is indeterminate. Ordering Physician: Fransisco Woodward Referring Physician: Dima Tavarez Performed By: Adrien Clifford RCS ADDENDUM by Dr. Wiliam Olivarez MD on 01/28/20 at 1149 Addendum: The technique paragraph should read as follows: The patient was injected with 12.0 millicuries of technetium 99m Cardiolite and subsequently rest SPECT Cardiolite nuclear imaging was obtained in the hori zontal long, vertical long, and short axis views. The patient underwent pharmacologic (Regadenoson) evaluation with a peak heart rate of 70 beats per minute (46% percent predicted maximal heart rate) and a peak blood pressure of 129/73 mmHg. The patient was injected with 34.0 millicuries of technetium 99m Cardiolite and subsequently stress SPECT Cardiolite nuclear imaging was obtained in the horizontal long, vertical long, and short axis views. A gated Cardiolite study at peak stress was obtained. 01/28/20 1149 Date _ Wiliam Olivarez MD cc: Dr. Dima Tavarez MD; Dr. Jelena Benson, DO ~* Signed Stress Test Report Date: Procedure: Pharmacologic stress nuclear imaging study Indications: Chest pain; CAD; PCI; CABG; PAF Consent: Per the patient Procedure: The patient underwent pharmacologic (Regadenoson) evaluation with a peak heart rate of 70 beats per minute (46%predicted maximal heart rate) and a peak blood pressure of 129/73 mmHg. The baseline ECG demonstrated normal sinus rhythm; anterolateral NV, indeterminate age, cannot be excluded. The peak pharmacologic ECG demonstrated no obvious ECG changes. There were no cardiac dysrhythmias pretest, during pharmacologic infusion, or recovery. There was no complaint of chest discomfort during pharmacologic infusion or recovery. The examination was discontinued secondary to completion of protocol. Impression: 1. Pharmacologic (Regadenoson) evaluation 2. Peak pharmacologic ECG with no obvious ECG changes. 3. There were no cardiac dysrhythmias pretest, during pharmacologic infusion, or recovery. 4. Nuclear images pending Myocardial perfusion imaging study: Technique: The patient was injected with millicuries of technetium 99m Cardiolite and subsequently rest SPECT Cardiolite nuclear imaging was obtained in the horizontal long, vertical long, and short axis views. The patient underwent pharmacologic (Regadenoson) evaluation with a peak heart rate of 70 beats per minute (46% percent predicted maximal heart rate) and a peak blood pressure of 129/73 mmHg. The patient was injected with millicuries of technetium 99m Cardiolite and subsequently stress SPECT Cardiolite nuclear imaging was obtained in the horizontal long, vertical long, and short axis views. A gated Cardiolite study at peak stress was obtained. Interpretation: Rest and stress SPECT Cardiolite nuclear imaging status post realignment, normalization, and attenuation correction demonstrate the appearance of diminished absence of myocardial perfusion/tracer uptake in portions of the distal anteroseptal/inferoseptal segments as well as the apical segments. There is diminished end systolic thickening and brightening in the aforementioned areas. The gated Cardiolite study demonstrates the appearance of dyskinesis in the apical areas. The reported LVEF is 62 %. Impression: 1. Rest and stress SPECT Cardiolite imaging demonstrate myocardial perfusion changes appearing compatible with the effects of previous myocardial injury/infarction with no myocardial perfusion changes considered diagnostic for associated stress-induced myocardial ischemia. 2. The gated Cardiolite study reports an LVEF of 62%. This note was generated with [employer] software. It may contain incorrect words, spelling, and punctuation that were not noted in checking the note before signing. 01/28/20 1146 <Electronically signed by Wiliam zhang MD> Date _ Wiliam Olivarez MD Cardiology Operations: None Procedures: 2-D Echocardiogram, Stress test Summary of Care Provided: Mr Bishop is a 69 year old M who presented to the ED because he has been having issues with palpitations. He stated that they have been coming and going but over the 24 hrs prior to admission had been having them much more frequently and was more symptomatic. At one point, he had an episode where he leaned towards the wall and then fell down passing out. Fortunately, patient's had landed into a very soft camera bag and did not sustain any injuries. Upon presentation to the ED he was found to be in atrial fibrillation but then spontaneously converted to normal sinus rhythm while in the ED. He stated at the time of admission he also had been having intermittent chest pain that usually precedes the palpitations. The chest pain had been sharp and left-sided. Troponins were cycled and were neg x 3. A stress test was done and was neg for inducible ischemia. An ECHO was done and his EF was WNL at 55% and showed no sig valvular abnormalities. He was evaluated by cardiology and they recommended to continue his Metoprolol at 100 mg BID and f/u with his primary seat joiner chainstitch at the [place] and noted that he may need a referral to the [place] for EP for potential ablation. His CHADS2 score is 2 but cardiology recommended against OAC at this time 2/2 recent syncopal event. I did discuss this further with the pt and he states that this w as an isolated event. We discussed recommendations and risk/benefit and the pt is amenable to d/c on NOAC at this time to decrease his risk of stroke. A script for Hola was sent to the pharmacy for a 1 month supply and then he will discuss further with his seat joiner chainstitch at the [place]. He states that he has an appt soon with his seat joiner chainstitch but will try to move it up if possible. D/C Diagnoses Syncope PAF HTN DM HPL CAD DM Neuropathy Pancreatitis-chronic KAY Carotid Artery Disease PTSD Chronic TAO GERD Patient Problems: Active and Suspected Problems (Last Reviewed 01/28/20 @ 05:[address] Fransisco Woodward, DO) Paroxysmal A-fib (Acute) Chest pain (Acute) Syncope (Acute) Chest pain (Acute) Subjective: Pt states that he is feeling well. Has remained in NSR since admission. Anxious to go home. - Physical Exam Vitals/I&O's: Vital Signs Temp Pulse Resp BP Pulse Ox 97.9 F 66 16 119/49 L 95 01/29/20 03:05 01/29/20 07:00 01/29/20 03:05 01/29/20 03:05 01/29/20 03:05 Oxygen Delivery Method Room Air Weight: 91 kg Body Mass Index (BMI) 28.8 Intake and Output for Last 24 Hours 01/27/20 01/28/20 01/29/20 23:59 23:59 23:59 Intake Total 690 / 690 225 / 225 Balance 690 / 690 225 / 225 General: Alert, Oriented x3, Cooperative, No apparent distress, Well developed, Well nourished, - - older WM sitting up in a chair and watching TV, appears well Oral: Moist Mucosa, No Gingival or Mucosal Lesions/ Ulcerations Lungs: Clear to auscultation, Normal air movement, No rhonchi, No wheeze, No rales Cardiovascular: Regular rate, Regular Rhythm, Normal S1, Normal S2, No murmurs, No Ectopic Activity, No rub noted, No Gallop Abdomen: Bowel Sounds Present, Soft, Non Tender, Non-Distended, No Hepato- splenomegaly Extremities: No clubbing, No cyanosis, No edema, Capillary Refill Less than 3 Seconds, Peripheral Pulses Normal Skin: No rashes, No breakdown Musculoskeletal: No Tenderness to Palpation of Joints or Extremities, No Muscle Wasting Neurological: Cranial nerves II-XII grossly intact, Neuro grossly intact Psych/Mental Status: Normal Affect, Appropriate Laboratory Results 01/28/20 08:50: Troponin I 0.020 01/28/20 11:40: POC Glucose 144 H 01/28/20 16:43: POC Glucose 142 H 01/28/20 21:11: POC Glucose 111 H 01/29/20 05:15: WBC 6.0, RBC 4.69, Hgb 12.1 L, Hct 39.7 L, MCV 84.6, MCH 25.8 L, MCHC 30.5 L, RDW Std Deviation 51.6 H, RDW Coeff of [place] 16.7 H, Plt Count 76 L, MPV 11.9, Immature Gran % (Auto) 0.300, Neut % (Auto) 46.5 L, Lymph % (Auto) 42.4 H, [place] % (Auto) 8.5, Eos % (Auto) 1.8, Baso % (Auto) 0.5, Absolute Neuts (auto) 2.8, Absolute Lymphs (auto) 2.53, Nucleated RBC % 0 01/29/20 05:15: Sodium 136, Potassium 3.9, Chloride 106, Carbon Dioxide 24.0, Anion Gap 6, BUN 20 H, Creatinine 1.27, Estim Creat Clear Calc 55.09, Est GFR (MDRD) Af Amer 72, Est GFR (MDRD) Non-Af 59 L, BUN/Creatinine Ratio 15.7, Glucose 121 H, Calcium 8.9 01/29/20 08:09: POC Glucose 154 H Current Medications Acetaminophen (Acetaminophen 325 Mg Tablet) 650 mg PO Q6H PRN PRN PRN Reason: Pain Score 1-10/Temp > 100.7 F Aspirin (Aspirin 81 Mg Tab.Chew) 81 mg PO QODAY@0800 [facility] Last Admin: 01/28/20 06:39 Dose: 81 mg Documented by: Carbidopa/Levodopa (Carbidopa/Levodopa 10/100 Tablet) 1 tablet PO QHS [facility] Last Admin: 01/28/20 21:24 Dose: Not Given Documented by: Clopidogrel Bisulfate (Clopidogrel Bisulfate 75 Mg Tablet) 75 mg PO DAILY [facility] Last Admin: 01/28/20 06:39 Dose: 75 mg Documented by: Enoxaparin Sodium (Enoxaparin 100 Mg/Ml Syringe) 90 mg 1 mg/kg (90 mg) SC Q12 [facility] Last Admin: 01/28/20 21:22 Dose: 90 mg Documented by: Fenofibrate (Fenofibrate 145 Mg Tablet) 145 mg PO DAILY [facility] Last Admin: 01/28/20 11:47 Dose: 145 mg Documented by: Furosemide (Furosemide 20 Mg Tablet) 20 mg PO DAILY [facility] Last Admin: 01/28/20 11:47 Dose: 20 mg Documented by: Sodium Chloride () 250 mls @ 15 mls/hr IV .[id number] PRN PRN Reason: Saline Flush Sodium Chloride () 250 mls @ 15 mls/hr IV .[id number] PRN PRN Reason: Additional IVPB Infusion Insulin Glargine (Insulin Glargine 100 Units/Ml Pen) 60 units SC BID [facility] Last Admin: 01/28/20 21:21 Dose: 20 units Documented by: Insulin Human Lispro (Insulin Lispro 100 Unit/Ml Insuln.Pen) 24 unit SC BREAKFAST [facility] Last Admin: 01/29/20 08:12 Dose: 24 units Documented by: Insulin Human Lispro (Insulin Lispro 100 Unit/Ml Insuln.Pen) 24 unit SC DINNER [facility] Last Admin: 01/28/20 17:06 Dose: 24 u Documented by: Insulin Human Lispro (Insulin Lispro 100 Unit/Ml Insuln.Pen) 18 unit SC LUNCH [facility] Last Admin: 01/28/20 11:59 Dose: 18 u Documented by: Insulin Human Lispro (Insulin Lispro 100 Unit/Ml Insuln.Pen) 0 unit SC TIDAC [facility]; Protocol Last Admin: 01/29/20 08:12 Dose: 1 units Documented by: Isosorbide Mononitrate (Isosorbide Mononitrate 30 Mg Tablet) 30 mg PO DAILY [facility] Last Admin: 01/28/20 11:49 Dose: 30 mg Documented by: Metoprolol Succinate (Metoprolol(Xl)Succ 100 Mg Tablet) 100 mg PO DAILY [facility] Last Admin: 01/28/20 11:46 Dose: 100 mg Documented by: Multivitamins (Multivitamins,Therapeutic Tablet) 1 tablet PO DAILY@0800 [facility] Last Admin: 01/28/20 16:56 Dose: 1 tablet Documented by: Nitroglycerin (Nitroglycerin (Inpatient Use) 0.4 Mg Tab.Subl) 0.4 mg SUBLINGUAL Q5M PRN PRN Reason: CARDIAC/CHEST PAIN Non-Formulary Medication (Alirocumab [Praluent Pen]) 150 mg SQ .Q2WEEK [facility] Ondansetron HCl (Ondansetron 8 Mg Tablet) 8 mg PO TID PRN PRN PRN Reason: nausea vomiting Ondansetron HCl (Ondansetron 4 Mg/2 Ml Vial) 4 mg IV Q8H PRN PRN PRN Reason: NAUSEA/VOMITING Oxycodone HCl (Oxycodone 5 Mg Tablet) 5 mg PO Q4H PRN PRN PRN Reason: Pain Score 6-10 Pantoprazole Sodium (Pantoprazole Sodium 40 Mg Tablet) 40 mg PO DAILY [facility] Last Admin: 01/28/20 11:46 Dose: 40 mg Documented by: Pregabalin (Pregabalin 75 Mg Capsule) 150 mg PO BID [facility] Last Admin: 01/28/20 21:34 Dose: 150 mg Documented by: Pyridoxine HCl (Pyridoxine Hcl 100 Mg Tablet) 100 mg PO DAILY [facility] Last Admin: 01/28/20 16:56 Dose: 100 mg Documented by: Rosuvastatin Calcium (Rosuvastatin 20 Mg Tablet) 20 mg PO DAILY [facility] Last Admin: 01/28/20 11:45 Dose: Not Given Documented by: Sodium Chloride (0.9% Saline Lock 10 Ml Syringe) 10 - 40 ml IV UD PRN PRN Reason: SALINE FLUSH Thiamine HCl (Thiamine Hydrochloride 100 Mg Tablet) 100 mg PO DAILY [facility] Last Admin: 01/28/20 16:56 Dose: 100 mg Documented by: Topiramate (Topiramate 50 Mg Tablet) 50 mg PO QHS [facility] Last Admin: 01/28/20 21:25 Dose: 50 mg Documented by: Trazodone HCl (Trazodone 100 Mg Tablet) 100 mg PO QHS PRN PRN Reason: SLEEP Discharge Activity: Return to Normal Activity, No Restrictions, May Drive Home Medications: Medications to take at Discharge Insulin Aspart [Novolog Flexpen] 18 units SUBCUT BREAKFAST 12/23/16 Insulin Aspart [Novolog Flexpen] 18 units SUBCUT DINNER 12/23/16 Insulin Glargine [Lantus SoloStar Pen] 45 units SUBCUT BID 12/23/16 Multivitamin,Therapeutic [Thera] 1 ea PO DAILY 12/23/16 Pyridoxine HCl [Vitamin B-6] 100 mg PO DAILY 12/23/16 Thiamine HCl [Vitamin B-1] 100 mg PO DAILY 12/23/16 traZODone [Desyrel] 100 mg PO QHS PRN 03/18/17 Lipase/Protease/Amylase [Creon Dr 24,000 Units Capsule] 2 cap PO TIDCM 03/20/18 Clopidogrel Bisulfate [Plavix] 75 mg PO DAILY #90 tab 03/22/18 fenofibrate micronized 200 mg capsule 200 mg PO DAILY #90 cap 04/23/18 furosemide 20 mg tablet 20 mg PO DAILY #90 tab 04/23/18 ondansetron HCl 8 mg tablet 8 mg PO TID PRN tab 04/23/18 pregabalin 150 mg capsule 150 mg PO BID cap 04/23/18 topiramate 50 mg tablet 50 mg PO QHS tab 04/23/18 insulin aspart U-100 100 unit/mL (3 mL) subcutaneous pen 18 unit SUBCUT LUNCH ml 07/13/18 isosorbide mononitrate 30 mg tablet,extended release 24 hr 30 mg PO DAILY #90 tab 07/13/18 metoprolol succinate 100 mg tablet,extended release 24 hr 100 mg PO DAILY 07/13/18 rosuvastatin 20 mg tablet 20 mg PO DAILY 07/13/18 carbidopa 10 mg-levodopa 100 mg tablet 1 tab PO QHS 12/26/18 diclofenac sodium 1 % topical gel 2 g TOPICAL DAILY PRN 12/26/18 nitroglycerin 0.4 mg sublingual tablet 0.4 mg SUBLINGUAL Q5-15M PRN 12/26/18 omeprazole 40 mg capsule,delayed release 40 mg PO DAILY 12/26/18 Alirocumab [Praluent Pen] 150 mg SQ .Q2WEEK 12/13/19 Apixaban [Eliquis] 5 mg PO BID #30 tab 01/29/20 Clopidogrel Bisulfate [Plavix] 75 mg PO DAILY tab 01/29/20 Following Prescriptions Were Given to Patient: Apixaban [Eliquis] 5 mg PO BID #30 tab Transmission Status: Pending to [id number] Primary Care Physician: Dima Tavarez MD [Primary Care Provider] - Please follow up with your Primary Care Physician in: 1-2 weeks Please Follow Up With[facility] When: As soon as you are able to get an appt Medical Necessity - Tobacco Use Smoking Status: Never smoker Meaningful Use Info Meaningful Use Diagnoses (Choose all that apply): None applicable
--- NOTE | 2020-01-29 09:44 | CASEMGMT ---
This RN CM to room with HEBERT form at this time, explanation done-pt voices understanding, and signs HEBERT form at this time. Original to chart and copy to pt at this time. Pt also to be sent home on Eliquis at discharge and med e-scribed to [facility] previously. Call to [facility] at this time and per pharmacist, pt's co-pay is $21.75 at this time. Pt still provided with 30 day free trial card at this time. Pt voices no further questions/concerns/needs at this time. [place] NEISHA LEMONS
[2020-01-29 09:45] VITALS: BP 102/42; PULSE 59; RESP 14; TEMP 36.7; O2SAT 98
[2020-01-29] MEDS: Rosuvastatin 20 MG Tablet PO (09:58)
[2020-01-29] MEDS: Fenofibrate 145 MG Tablet PO (09:58)
[2020-01-29] MEDS: Pantoprazole Sodium 40 MG Tablet PO (09:58)
[2020-01-29] MEDS: Furosemide 20 MG Tablet PO (09:58)
[2020-01-29] MEDS: Clopidogrel Bisulfate 75 MG Tablet PO (09:58)
[2020-01-29 10:00] VITALS: PULSE 59
[2020-01-29] MEDS: Pregabalin 75 MG Capsule 150 MG PO (10:04)
--- NOTE | 2020-01-29 10:32 | PHA.DC.MC ---
Pharmacy Service has performed discharge medication reconciliation and counseling for this patient. 1. APIXABAN 5MG PO BID The patient's discharge medication list was reviewed for discrepancies and discrepancies were resolved. Home Medications Insulin Aspart [Novolog Flexpen] 18 units SUBCUT BREAKFAST 12/23/16 Insulin Aspart [Novolog Flexpen] 18 units SUBCUT DINNER 12/23/16 Insulin Glargine [Lantus SoloStar Pen] 45 units SUBCUT BID 12/23/16 Multivitamin,Therapeutic [Thera] 1 ea PO DAILY 12/23/16 Pyridoxine HCl [Vitamin B-6] 100 mg PO DAILY 12/23/16 Thiamine HCl [Vitamin B-1] 100 mg PO DAILY 12/23/16 traZODone [Desyrel] 100 mg PO QHS PRN 03/18/17 Lipase/Protease/Amylase [Enriqueon Dr 24,000 Units Capsule] 2 cap PO TIDCM 03/20/18 Clopidogrel Bisulfate [Plavix] 75 mg PO DAILY #90 tab 03/22/18 fenofibrate micronized 200 mg capsule 200 mg PO DAILY #90 cap 04/23/18 furosemide 20 mg tablet 20 mg PO DAILY #90 tab 04/23/18 ondansetron HCl 8 mg tablet 8 mg PO TID PRN tab 04/23/18 pregabalin 150 mg capsule 150 mg PO BID cap 04/23/18 topiramate 50 mg tablet 50 mg PO QHS tab 04/23/18 insulin aspart U-100 100 unit/mL (3 mL) subcutaneous pen 18 unit SUBCUT LUNCH ml 07/13/18 isosorbide mononitrate 30 mg tablet,extended release 24 hr 30 mg PO DAILY #90 tab 07/13/18 metoprolol succinate 100 mg tablet,extended release 24 hr 100 mg PO DAILY 07/13/18 rosuvastatin 20 mg tablet 20 mg PO DAILY 07/13/18 carbidopa 10 mg-levodopa 100 mg tablet 1 tab PO QHS 12/26/18 diclofenac sodium 1 % topical gel 2 g TOPICAL DAILY PRN 12/26/18 nitroglycerin 0.4 mg sublingual tablet 0.4 mg SUBLINGUAL Q5-15M PRN 12/26/18 omeprazole 40 mg capsule,delayed release 40 mg PO DAILY 12/26/18 Alirocumab [Praluent Pen] 150 mg SQ .Q2WEEK 12/13/19 Apixaban [Eliquis] 5 mg PO BID #30 tab 01/29/20 The patient was counseled on the following discharge medications and changes in medications for homegoing were reviewed. The Reason for Use, instructions for use, and potential side effects were reviewed for all new medications. The patient's questions regarding all of their medications were answered. The patient was able to verbally demonstrate an understanding of their discharge medications.
== END 2020-01-29 08:46 | disposition home or self-care (01) ==
LOC: ED 01:52 → PCU 05:38
PROVIDERS: Emergency Provider Emergency Medicine; PCP Family Medicine; Visit Provider Internal Medicine
DX: I48.0 Paroxysmal atrial fibrillation (principal); E13.40 Other specified diabetes mellitus with diabetic neuropathy, unspecified; R55 Syncope and collapse; I10 Essential (primary) hypertension; I25.10 Atherosclerotic heart disease of native coronary artery without angina pectoris; I25.2 Old myocardial infarction; E78.5 Hyperlipidemia, unspecified; F43.10 Post-traumatic stress disorder, unspecified; G47.33 Obstructive sleep apnea (adult) (pediatric); G25.81 Restless legs syndrome; I08.3 Combined rheumatic disorders of mitral, aortic and tricuspid valves; Z79.899 Other long term (current) drug therapy; Z79.4 Long term (current) use of insulin; Z79.82 Long term (current) use of aspirin; Z95.1 Presence of aortocoronary bypass graft; K21.9 Gastro-esophageal reflux disease without esophagitis; Z79.02 Long term (current) use of antithrombotics/antiplatelets
CPT/HCPCS: 36415; 71046; 78452; 80048; 82962; 84443; 84484; 85025; 85610; 85730; 93005; 93017; 93306; 96372; 99218; 99281; A9500; Q9957; A4216; C8929; G0378; J2785

== ENCOUNTER 2020-10-13 14:53 | Inpatient (IN) | payer OTHER, MEDICARE, SELFPAY ==
[2018-03-21 13:40] VITALS: BMI 31.6
[2020-01-28 05:08] VITALS: BMI 28.8
[2020-10-13 14:54] VITALS: BP 131/55; PULSE 78; RESP 16; TEMP 36.4; O2SAT 98; BMI 28.1
--- NOTE | 2020-10-13 15:13 | EDS_ITS ---
HPI <Dr. Scott Eaton DO - Last Filed: 10/13/20 17:02> History of Present Illness Chief Complaint: Abd Pain Informant: patient and family Narrative Narrative: 70-year-old male presented to the emergency department for the evaluation of abdominal pain. Patient states that past several days he has had pain in the right flank that is gradually moving towards the front. He notes pain with movement he notes no fevers. No urinary symptoms. Normal bowel movements. He states he is concerned he may have appendicitis. He states he feels like there is a bulge on the side of his abdomen. COUNTS INCLUDE 234 BEDS AT THE [facility] <Dr. Scott Eaton DO - Last Filed: 10/13/20 17:02> COUNTS INCLUDE 234 BEDS AT THE [facility] Medical History Atherosclerotic heart disease of [place] coronary artery without angina pectoris Atrial fibrillation CAD (coronary artery disease) Carotid artery disease Cataract Cataract (lens) fragments in eye following cataract surgery, bilateral Chest pain Chronic headaches Chronic neck and back pain Essential hypertension GERD (gastroesophageal reflux disease) HLD (hyperlipidemia) Kidney stones Migraines Neuropathy NSTEMI (non-ST elevated myocardial infarction) Numbness and tingling in right hand Obstructive sleep apnea Pancreatitis Post traumatic stress disorder (PTSD) Restless legs syndrome Severe headache Type 2 diabetes mellitus Home Medications insulin aspart U-100 18 units SUBCUT TIDCM 12/23/16 [History Last Taken 10/13/20] insulin glargine 20 units SUBCUT BID 12/23/16 [History Last Taken 10/13/20] pyridoxine (vitamin B6) 100 mg PO DAILY 12/23/16 [History Last Taken 10/13/20] therapeutic multivitamin 1 ea PO DAILY 12/23/16 [History Last Taken 10/12/20] thiamine HCl (vitamin B1) 100 mg PO DAILY 12/23/16 [History Last Taken 10/13/20] mdlzrf-bqxkuere-jrloyoc 2 cap PO TIDCM 03/20/18 [History Last Taken 10/13/20] clopidogrel 75 mg PO DAILY #90 tab 03/22/18 [Rx Last Taken 10/12/20] ondansetron HCl 8 mg tablet 8 mg PO TID PRN tab 04/23/18 [History Last Taken Unknown] pregabalin 150 mg capsule 150 mg PO BID cap 04/23/18 [History Last Taken 10/13/20] isosorbide mononitrate 30 mg tablet,extended release 24 hr 30 mg PO DAILY #90 tab 07/13/18 [Rx Last Taken 10/12/20] metoprolol succinate 100 mg tablet,extended release 24 hr 100 mg PO DAILY 07/13/18 [History Last Taken 10/12/20] rosuvastatin 20 mg tablet 20 mg PO DAILY 07/13/18 [History Last Taken 10/12/20] diclofenac sodium 1 % topical gel 2 g TOPICAL DAILY PRN 12/26/18 [History Last Taken Unknown] nitroglycerin 0.4 mg sublingual tablet 0.4 mg SUBLINGUAL Q5-15M PRN 12/26/18 [History Last Taken 1 Month Ago ~09/12/20] omeprazole 40 mg capsule,delayed release 40 mg PO DAILY 12/26/18 [History Last Taken 10/12/20] alirocumab 150 mg SQ .Q2WEEK 12/13/19 [History Last Taken 10/04/20] zolpidem [Ambien] 5 mg PO QHS PRN 10/13/20 [History Last Taken 3 Days Ago ~10/10/20] Allergy/AdvReac Type Severity Reaction Status Date / Time oxycodone [From OxyContin] Allergy Shortness Verified 10/13/20 14:55 of breath atorvastatin [From Lipitor] AdvReac muscle Verified 10/13/20 18:55 weakness fish oil AdvReac muscle Verified 10/13/20 18:55 weakness morphine AdvReac MIGRAINE TAO Verified 10/13/20 18:55 Family History Mother Cancer Diabetes Heart disease Hypertension Father CVA (cerebral vascular accident) Diabetes Heart disease Hypertension Surgical History History of ankle surgery History of cholecystectomy History of facial surgery Hx of CABG (~08/2017) S/P coronary artery stent placement (~07/05/18) Social History (Updated 10/13/20 @ 19:22 by Tabby Bolden NP-C) housing: house Smoking Status: Never smoker alcohol intake: never substance use type: does not use ROS <Dr. Scott Eaton DO - Last Filed: 10/13/20 17:02> ROS ED Constitutional Constitutional ED: Denies chills or weight loss Eyes Eyes: Denies change in vision or diplopia ENT ENT ED: Denies ear pain, rhinorrhea or sore throat Cardiovascular Cardiovascular: Denies chest pain, orthopnea, palpitations or racing heartbeat Respiratory/Chest Respiratory/Chest: Denies cough, dyspnea or orthopnea Gastrointestinal Gastrointestinal: Reports abdominal pain and nausea; Denies diarrhea or vomiting Genitourinary Genitourinary ED: Denies dysuria, hematuria or urinary frequency Musculoskeletal Musculoskeletal: Denies arthralgias or myalgias Integumentary Denies abscess or rash Neurologic Neurologic: Denies headache(s) or weakness Psychiatric Psychiatric: Denies anxiety, depression, suicidal ideation or suicidal thoughts Endocrine Endocrinology: Denies polydipsia, polyphagia or polyuria Allergic/Immunologic Allergic/Immunologic ED: Denies mouth swelling, tongue swelling or urticaria EXAM <Dr. Scott Eaton, DO - Last Filed: 10/13/20 17:02> Physical Exam Const Vital Signs: 10/13/20 14:54 10/13/20 17:36 10/13/20 19:21 Temperature 97.6 F L 97.8 F Temperature Source Temporal Temporal Pulse Rate 78 89 89 Respiratory Rate 16 18 14 Blood Pressure 131/55 H 146/79 H 137/89 H Blood Pressure Mean 80 101 105 Pulse Ox 98 99 97 Oxygen Delivery Method Room Air Positive well nourished and well developed General Appearance ED: well developed HEENT Reports normocephalic, head/scalp atraumatic and moist mucous membranes Eyes PERRL and EOMs intact bilaterally Neck no lymphadenopathy, supple and no JVD Resp normal respiratory effort and clear to auscultation bilaterally Cardio regular rate, regular rhythm and no murmurs GI GI Narrative: Tender to palpation in the posterior aspect/midaxillary line in the middle quadrant of the abdomen. He is also tender more in the middle to the lower quadrant. I do not appreciate any bulge or difference from left to right. Palpation: soft Back/Spine no CVA tenderness and normal ROM Extremity normal to inspection General Extremety ED: Negative for edema General Extremity: Negative for edema Neuro oriented x3 and CN's II-XII intact bilaterally Sensorium / Orientation: alert Motor Exam: strength 5/5 throughout Psych mental status grossly normal Mood & Affect: Negative for depressed or tearful Skin no rashes or lesions noted and no wounds <Dr. Jenni Eldridge, DO - Last Filed: 10/14/20 01:36> Physical Exam Const Vital Signs: 10/13/20 14:54 10/13/20 17:36 10/13/20 19:21 Temperature 97.6 F L 97.8 F Temperature Source Temporal Temporal Pulse Rate 78 89 89 Respiratory Rate 16 18 14 Blood Pressure 131/55 H 146/79 H 137/89 H Blood Pressure Mean 80 101 105 Pulse Ox 98 99 97 Oxygen Delivery Method Room Air MDM <Dr. Scott Eaton, DO - Last Filed: 10/13/20 17:02> MDM MDM Narrative Medical decision making narrative: Patient's white blood cell count is 7. Hemoglobin 8.7. Creatinine 1.51. Lipase 81. Liver enzymes normal. CT of the abdomen pelvis with oral and IV contrast was obtained. Care the patient will be checked out to the oncoming physician for check of results and final disposition. Lab Data Labs: Laboratory Results - last 24 hr 10/13/20 10/13/20 10/13/20 15:25 15:25 16:41 WBC 7.0 RBC 3.56 L Hgb 8.7 L Hct 28.0 L MCV 78.7 L MCH 24.4 L MCHC 31.1 L RDW Std Deviation 47.3 H RDW Coeff of [place] 16.3 H Plt Count 83 L Immature Gran % (Auto) 0.700 Neut % (Auto) 56.8 Lymph % (Auto) 32.3 [place] % (Auto) 8.1 Eos % (Auto) 1.7 Baso % (Auto) 0.4 Absolute Neuts (auto) 4.0 Absolute Lymphs (auto) 2.26 Nucleated RBC % 0 Sodium 137 Potassium 4.0 Chloride 106 Carbon Dioxide 23.0 Anion Gap 8 BUN 21 H Creatinine 1.51 H Estim Creat Clear Calc 45.66 Est GFR (MDRD) Af Amer 59 L Est GFR (MDRD) Non-Af 48 L BUN/Creatinine Ratio 13.9 Glucose 269 H Calcium 8.3 L Total Bilirubin 0.60 AST 70 H ALT 42 Alkaline Phosphatase 122 H Total Protein 7.4 Albumin 2.8 L Globulin 4.6 H Albumin/Globulin Ratio 0.6 L Lipase 81 Urine Color Yellow Urine Clarity Clear Urine pH 7.0 Ur Specific [place] 1.010 Urine Protein Negative Urine Glucose (UA) 1000 H Urine Ketones Negative Urine Occult Blood Negative Urine Nitrite Negative Urine Bilirubin Negative Urine Urobilinogen Normal Ur Leukocyte Esterase Negative Urine RBC 0 SEEN Urine WBC 0 SEEN Ur Squamous Epith Cells 0 SEEN Urine Bacteria 0 SEEN Urine Mucus 0 SEEN Radiography Diagnostic Testing: Radiology Impression Abdomen/Pelvis CT 10/13/20 15:13 IMPRESSION: Moderate stranding and wall thickening around the cecum. The appendix is visualized and appears normal. Correlate for cecal colitis. Small nonobstructing left renal stones. Electronically Signed: Barrington Bardales MD at 17:35 EDT Tel , Service support , <Dr. Jenni Eldridge, DO - Last Filed: 10/14/20 01:36> [facility] MDM Narrative Medical decision making narrative: Patient signed out to me pending CT results. CT shows inflammation at the cecum with associated stranding. Patient is having severe pain again and requires another dose of IV Dilaudid. He will will need to be admitted to the hospital for pain control and will start antibiotic treatment of likely colitis versus diverticulitis. Case is discussed with surgery on-call, Dr. Vo who feels that likely this is diverticulitis. Patient was started on Cipro and Flagyl in the emergency room. He is agreeable with this plan of care and otherwise stable at time of disposition. Lab Data Labs: Laboratory Results - last 24 hr 10/13/20 10/13/20 10/13/20 15:25 15:25 16:41 WBC 7.0 RBC 3.56 L Hgb 8.7 L Hct 28.0 L MCV 78.7 L MCH 24.4 L MCHC 31.1 L RDW Std Deviation 47.3 H RDW Coeff of [place] 16.3 H Plt Count 83 L Immature Gran % (Auto) 0.700 Neut % (Auto) 56.8 Lymph % (Auto) 32.3 [place] % (Auto) 8.1 Eos % (Auto) 1.7 Baso % (Auto) 0.4 Absolute Neuts (auto) 4.0 Absolute Lymphs (auto) 2.26 Nucleated RBC % 0 Sodium 137 Potassium 4.0 Chloride 106 Carbon Dioxide 23.0 Anion Gap 8 BUN 21 H Creatinine 1.51 H Estim Creat Clear Calc 45.66 Est GFR (MDRD) Af Amer 59 L Est GFR (MDRD) Non-Af 48 L BUN/Creatinine Ratio 13.9 Glucose 269 H Calcium 8.3 L Total Bilirubin 0.60 AST 70 H ALT 42 Alkaline Phosphatase 122 H Total Protein 7.4 Albumin 2.8 L Globulin 4.6 H Albumin/Globulin Ratio 0.6 L Lipase 81 Urine Color Yellow Urine Clarity Clear Urine pH 7.0 Ur Specific [place] 1.010 Urine Protein Negative Urine Glucose (UA) 1000 H Urine Ketones Negative Urine Occult Blood Negative Urine Nitrite Negative Urine Bilirubin Negative Urine Urobilinogen Normal Ur Leukocyte Esterase Negative Urine RBC 0 SEEN Urine WBC 0 SEEN Ur Squamous Epith Cells 0 SEEN Urine Bacteria 0 SEEN Urine Mucus 0 SEEN Radiography Diagnostic Testing: Radiology Impression Abdomen/Pelvis CT 10/13/20 15:13 IMPRESSION: Moderate stranding and wall thickening around the cecum. The appendix is visualized and appears normal. Correlate for cecal colitis. Small nonobstructing left renal stones. Electronically Signed: Barrington Bardales MD at 17:35 EDT Tel , Service support , Discharge Plan Dx/Rx/DC Orders Clinical Impression: Colitis, Abdominal pain Disposition [facility]position[facility] Discharge Date/Time: 10/13/20 19:20
--- NOTE | 2020-10-13 15:13 | CT_ITS ---
STUDY: CT ABDOMEN AND PELVIS WITH CONTRAST REASON FOR EXAM: Male, 70 years old. Abdominal pain -- IV PO Contrast RADIATION DOSAGE (If Supplied By Facility): CTDIvol = ( 12.93 ) mGy, DLP = ( 855.40 ) mGycm TECHNIQUE: Transaxial images were obtained from the dome of the diaphragm to the symphysis pubis without oral contrast. Oral and amp; IV GASTROGRAFIN and amp; 100ML ISOVUE 300 was administered. Sagittal and coronal images were reconstructed. Individualized dose optimization techniques were used for this CT. COMPARISON: 03/17/17. FINDINGS: The visualized lung bases are unremarkable. The visualized portions of the heart are within normal limits. There is a diffuse contour abnormality of the liver consistent with cirrhotic changes. There are surgical clips in the gallbladder fossa consistent with a prior cholecystectomy. Normal spleen. There is diffuse atrophy of the pancreas. Normal bilateral adrenal glands. Normal right kidney. There are 2 small nonobstructing left renal stones measuring 1 to 2 mm each. Otherwise unremarkable left kidney. Normal visualized stomach. Normal small intestine. Moderate stranding and wall thickening around the cecum. The appendix is visualized and appears normal. Normal abdominal aorta. Normal inferior vena cava. Normal retroperitoneum. Normal urinary bladder. Normal visualized prostate gland. Normal abdominal wall. Normal osseous structures. CT/Abdomen/Pelvis WITH Contrast IMPRESSION: Moderate stranding and wall thickening around the cecum. The appendix is visualized and appears normal. Correlate for cecal colitis. Small nonobstructing left renal stones. Electronically Signed: Barrington Bardales MD at 17:35 EDT Tel , Service support ,
[2020-10-13] MEDS: Ondansetron 4 MG/2 ML Vial IV (15:34)
[2020-10-13] MEDS: HYDROmorphone 1 MG/ML Syringe 0.5 MG IV (15:35)
[2020-10-13] MEDS: 0.9% Normal Saline 1,000 ML 1000 ML IV (15:35)
[2020-10-13 15:42] LABS: Absolute Lymphocyte Count 2.26 X10^3/uL (0.83-4.51); Basophil# 0.03 X10^3/uL; Basophil% 0.4 % (0-1); Eosinophil# 0.12 X10^3/uL; Eosinophils% 1.7 % (0-5); Hemoglobin 8.7 g/dL (13.0-16.5); Lymphocyte # 2.26 X10^3/ul (0.83-4.51); Lymphocyte % 32.3 % (19-41); Mean Corp Hgb Conc 31.1 g/dL (32-36); Mean Corpuscular Hgb 24.4 pg (27.0-32.0); Mean Corpuscular Volume 78.7 fL (80-94); Monocyte# 0.57 X10^3/uL; Monocyte% 8.1 % (0-10); NRBC Flagged by Analyzer 0 % (0-5); Neutrophil # 3.97 X10^3/uL (2.7-7.7); Neutrophil % 56.8 % (47-70); POSITIVE COUNT YES; Platelet Count 83 K/mm3 (150-450); RBC Distribution Width CV 16.3 % (11.6-14.6); RBC Distribution Width SD 47.3 fl (35.1-43.9); Red Blood Count 3.56 M/mm3 (4.6-6.2)
[2020-10-13 16:05] LABS: ALB/GLOB Ratio 0.6 RATIO (0.9-2.4); AST(SGOT) 70 U/L (15-37); Alanine Aminotransfer ALT/SGPT 42 U/L (16-61); Albumin, Serum 2.8 g/dL (3.2-5.0); Alkaline Phosphatase 122 U/L (45-117); Anion Gap 8 (5-15); BUN 21 mg/dL (7-18); BUN/Creat Ratio 13.9 RATIO (10-20); Calcium,Total 8.3 mg/dL (8.5-10.1); Chloride 106 mmol/L (98-107); Creatinine, Serum 1.51 mg/dL (0.70-1.30); EST Glomerular Filtration Rate 48 mL/min (>60); Est Glom Filt Rate - Afr Amer 59 mL/min (>60); Estimated Creatinine Clearance 45.66 ml/min; Globulin 4.6 g/dL (2.2-4.2); Glucose 269 mg/dL (74-106); Lipase 81 U/L (73-393); Protein, Total 7.4 g/dL (6.4-8.2); Sodium Level 137 mmol/L (136-145)
[2020-10-13 16:51] LABS: Bacteria 0 SEEN /hpf (None Seen); Mucous, Urine 0 SEEN /hpf (<or=2+); Red Blood Cells-Urine 0 SEEN /hpf (0-5); Squamous Epithelial Cells - UA 0 SEEN /hpf (0-5); White Blood Cells 0 SEEN /hpf (0-5)
[2020-10-13 16:56] LABS: Color, Urine Yellow (Yellow); Glucose, Dipstick 1000 mg/dl (Normal); Ketone-Dipstick Negative (Negative); Leukocyte Esterase-Dipstick Negative /ul (Negative); Nitrite-Dipstick Negative (Negative); Occult Blood-Urine Negative /ul (Negative); Protein-Dipstick Negative (Negative); Urine Bilirubin Dipstick Negative (Negative); Urine Clarity Clear (Clear); Urine Urobilinogen Normal (Normal)
[2020-10-13 17:36] VITALS: BP 146/79; PULSE 89; RESP 18; O2SAT 99
--- NOTE | 2020-10-13 19:04 | HP.PCM_ITS ---
Documented by User: DENISE Greene 10/13/20 19:32 HPI - General General Date of Admission: 10/13/20 Date of Service: 10/13/20 Chief Complaint: Abdominal pain HPI Narrative CAMDEN HOLDER, is a 70 M who presents with complaints of abdominal pain. Patient states that over the past 2 days his abdominal pain has gotten worse and it is mostly located in the right lower quadrant. Patient states that he was co ncerned for appendicitis. Patient states that his pain on arrival was 10 out of 10 however after receiving pain medication it is now tolerable at a 5 out of 10. Patient also reports complaints of nausea. Patient denies fever, chills, diarrhea, constipation, vomiting. [facility] Medical History Atherosclerotic heart disease of [place] coronary artery without angina pectoris Atrial fibrillation CAD (coronary artery disease) Carotid artery disease Cataract Cataract (lens) fragments in eye following cataract surgery, bilateral Chest pain Chronic headaches Chronic neck and back pain Essential hypertension GERD (gastroesophageal reflux disease) HLD (hyperlipidemia) Kidney stones Migraines Neuropathy NSTEMI (non-ST elevated myocardial infarction) Numbness and tingling in right hand Obstructive sleep apnea Pancreatitis Post traumatic stress disorder (PTSD) Restless legs syndrome Severe headache Type 2 diabetes mellitus Home Medications insulin aspart U-100 18 units SUBCUT TIDCM 12/23/16 [History Last Taken 10/13/20] insulin glargine 20 units SUBCUT BID 12/23/16 [History Last Taken 10/13/20] pyridoxine (vitamin B6) 100 mg PO DAILY 12/23/16 [History Last Taken 10/13/20] therapeutic multivitamin 1 ea PO DAILY 12/23/16 [History Last Taken 10/12/20] thiamine HCl (vitamin B1) 100 mg PO DAILY 12/23/16 [History Last Taken 10/13/20] clopidogrel 75 mg PO DAILY #90 tab 03/22/18 [Rx Last Taken 10/12/20] ondansetron HCl 8 mg tablet 8 mg PO TID PRN tab 04/23/18 [History Last Taken Unknown] pregabalin 150 mg capsule 150 mg PO BID cap 04/23/18 [History Last Taken 10/13/20] isosorbide mononitrate 30 mg tablet,extended release 24 hr 30 mg PO DAILY #90 tab 07/13/18 [Rx Last Taken 10/12/20] metoprolol succinate 100 mg tablet,extended release 24 hr 100 mg PO DAILY 07/13/18 [History Last Taken 10/12/20] rosuvastatin 20 mg tablet 20 mg PO DAILY 07/13/18 [History Last Taken 10/12/20] diclofenac sodium 1 % topical gel 2 g TOPICAL DAILY PRN 12/26/18 [History Last Taken Unknown] nitroglycerin 0.4 mg sublingual tablet 0.4 mg SUBLINGUAL Q5-15M PRN 12/26/18 [History Last Taken 1 Month Ago ~09/12/20] omeprazole 40 mg capsule,delayed release 40 mg PO DAILY 12/26/18 [History Last Taken 10/12/20] alirocumab 150 mg SQ .Q2WEEK 12/13/19 [History Last Taken 10/04/20] zolpidem [Ambien] 5 mg PO QHS PRN 10/13/20 [History Last Taken 3 Days Ago ~10/10] [id number] [Creon] 3 cap PO TIDCM 10/14/20 [History Last Taken Unknown] Allergy/AdvReac Type Severity Reaction Status Date / Time oxycodone [From OxyContin] Allergy Shortness Verified 10/13/20 14:55 of breath atorvastatin [From Lipitor] AdvReac muscle Verified 10/13/20 18:55 weakness fish oil AdvReac muscle Verified 10/13/20 18:55 weakness morphine AdvReac MIGRAINE TAO Verified 10/13/20 18:55 Family History Mother Cancer Diabetes Heart disease Hypertension Father CVA (cerebral vascular accident) Diabetes Heart disease Hypertension Surgical History History of ankle surgery History of cholecystectomy History of facial surgery Hx of CABG (~08/2017) S/P coronary artery stent placement (~07/05/18) Social History (Updated 10/13/20 @ 19:22 by Tabby Bolden NP-C) housing: house Smoking Status: Never smoker alcohol intake: never substance use type: does not use ROS Constitutional Constitutional: Denies anorexia, chills, fever(s) or weakness Cardiovascular Cardiovascular: Denies chest pain, edema or palpitations Respiratory/Chest Respiratory/Chest: Denies cough, shortness of breath at rest or shortness of breath with exertion Gastrointestinal Gastrointestinal: Reports abdominal pain and nausea; Denies change in bowel habits, constipation, diarrhea or vomiting Genitourinary Genitourinary: Denies dysuria Musculoskeletal Musculoskeletal: Denies back pain, extremity pain, joint pain or joint stiffness Integumentary Integumentary: Denies dry skin Neurologic Neurologic: Denies abnormal gait, abnormal speech, confusion or dizziness Psychiatric Psychiatric: Denies anxiety or depression Endocrine Endocrinology: Denies change in body appearance Hematologic/Lymphatic Hematologic/Lymphatic: Denies easy bleeding or easy bruising Vital Signs Vital Signs Vital Signs: 10/13/20 14:54 10/13/20 17:36 Temperature 97.6 F L Temperature Source Temporal Pulse Rate 78 89 Respiratory Rate 16 18 Blood Pressure 131/55 H 146/79 H Blood Pressure Mean 80 101 Pulse Ox 98 99 Oxygen Delivery Method Room Air Weight Weight: 196 lb 0.005 oz Body Mass Index (BMI) 28.1 Physical Exam Const alert and oriented x3 General Appearance: cooperative HEENT normocephalic and head/scalp atraumatic Eyes conjunctivae normal and no scleral icterus Neck no lymphadenopathy, supple and no JVD General: trachea midline Resp normal respiratory effort, normal air movement and clear to auscultation bilaterally Cardio regular rate, regular rhythm, S1 normal heart sound and S2 normal heart sound GI Auscultation: normoactive bowel sounds Palpation: tender RLQ and guarding RLQ Extremity normal capillary refill and no clubbing, cyanosis or edema General Extremity: no tenderness to palpation of joints or extremities Skin General Skin Exam: no breakdown and turgor normal Lesions: no lesions Rashes: no rashes Neuro oriented x3, moves all extremities, no focal motor deficits, no sensory deficits noted and gait normal Psych thought process normal, cooperative and affect normal Appearance: appropriate Results Lab / Micro Data Result Diagrams: 10/14/20 06:30 10/14/20 06:30 Labs: Laboratory Results - last 24 hr 10/13/20 10/13/20 10/13/20 15:25 15:25 16:41 WBC 7.0 RBC 3.56 L Hgb 8.7 L Hct 28.0 L MCV 78.7 L MCH 24.4 L MCHC 31.1 L RDW Std Deviation 47.3 H RDW Coeff of [place] 16.3 H Plt Count 83 L Immature Gran % (Auto) 0.700 Neut % (Auto) 56.8 Lymph % (Auto) 32.3 [place] % (Auto) 8.1 Eos % (Auto) 1.7 Baso % (Auto) 0.4 Absolute Neuts (auto) 4.0 Absolute Lymphs (auto) 2.26 Nucleated RBC % 0 Sodium 137 Potassium 4.0 Chloride 106 Carbon Dioxide 23.0 Anion Gap 8 BUN 21 H Creatinine 1.51 H Estim Creat Clear Calc 45.66 Est GFR (MDRD) Af Amer 59 L Est GFR (MDRD) Non-Af 48 L BUN/Creatinine Ratio 13.9 Glucose 269 H Calcium 8.3 L Total Bilirubin 0.60 AST 70 H ALT 42 Alkaline Phosphatase 122 H Total Protein 7.4 Albumin 2.8 L Globulin 4.6 H Albumin/Globulin Ratio 0.6 L Lipase 81 Urine Color Yellow Urine Clarity Clear Urine pH 7.0 Ur Specific [place] 1.010 Urine Protein Negative Urine Glucose (UA) 1000 H Urine Ketones Negative Urine Occult Blood Negative Urine Nitrite Negative Urine Bilirubin Negative Urine Urobilinogen Normal Ur Leukocyte Esterase Negative Urine RBC 0 SEEN Urine WBC 0 SEEN Ur Squamous Epith Cells 0 SEEN Urine Bacteria 0 SEEN Urine Mucus 0 SEEN Radiology Impression Abdomen/Pelvis CT 10/13/20 15:13 IMPRESSION: Moderate stranding and wall thickening around the cecum. The appendix is visualized and appears normal. Correlate for cecal colitis. Small nonobstructing left renal stones. Electronically Signed: Barrington Bardales MD at 17:35 EDT Tel , Service support , Assessment & Plan Assessment/Plan (1) Colitis: PLAN: 1. Colitis -Admit to [facility], CT shows moderate stranding and wall thickening around the cecum, normal appendix -Received first dose of Cipro and Flagyl in ER, will continue -Vital signs per protocol -CBC and CMP in a.m., trend hemoglobin. -Normal saline 100 ml/hr -Will remain n.p.o. at this time -Intake and output routine 2. Acute anemia -Upon review of labs patient baseline hemoglobin 13-14, presents 8.7 -Trend hemoglobin and hematocrit daily CBC 3. Hypertension -Vital signs currently stable, will continue home medication regimen -Vital signs per protocol, trend BP and heart rate 4. Hyperlipidemia -Continue rosuvastatin 5. Diabetes mellitus -Continue home medication regimen of insulin glargine and insulin aspart -AC at bedtime blood sugars ordered with sliding scale insulin 6. Thrombocytopenia -Upon review of labs chronic for patient -Will trend with daily CBC 7. Chronic pancreatitis -Will continue digestive enzymes 8. History of CABG x3 -Currently on Plavix, will continue 9. History of cardiac stents x2 -See #5 DVT prophylaxis-subcu Lovenox This patient was seen by DENISE Greene under the supervision of Dr. Blanchard. Documented by User: Dr. Jairo Blanchard MD 10/14/20 15:24 HPI - General General Date of Admission: 10/13/20 [facility] Medical History Atherosclerotic heart disease of [place] coronary artery without angina pectoris Atrial fibrillation CAD (coronary artery disease) Carotid artery disease Cataract Cataract (lens) fragments in eye following cataract surgery, bilateral Chest pain Chronic headaches Chronic neck and back pain Essential hypertension GERD (gastroesophageal reflux disease) HLD (hyperlipidemia) Kidney stones Migraines Neuropathy NSTEMI (non-ST elevated myocardial infarction) Numbness and tingling in right hand Obstructive sleep apnea Pancreatitis Post traumatic stress disorder (PTSD) Restless legs syndrome Severe headache Type 2 diabetes mellitus Home Medications insulin aspart U-100 18 units SUBCUT TIDCM 12/23/16 [History Last Taken 10/13/20] insulin glargine 20 units SUBCUT BID 12/23/16 [History Last Taken 10/13/20] pyridoxine (vitamin B6) 100 mg PO DAILY 12/23/16 [History Last Taken 10/13/20] therapeutic multivitamin 1 ea PO DAILY 12/23/16 [History Last Taken 10/12/20] thiamine HCl (vitamin B1) 100 mg PO DAILY 12/23/16 [History Last Taken 10/13/20] clopidogrel 75 mg PO DAILY #90 tab 03/22/18 [Rx Last Taken 10/12/20] ondansetron HCl 8 mg tablet 8 mg PO TID PRN tab 04/23/18 [History Last Taken Unknown] pregabalin 150 mg capsule 150 mg PO BID cap 04/23/18 [History Last Taken 10/13/20] isosorbide mononitrate 30 mg tablet,extended release 24 hr 30 mg PO DAILY #90 tab 07/13/18 [Rx Last Taken 10/12/20] metoprolol succinate 100 mg tablet,extended release 24 hr 100 mg PO DAILY 07/13/18 [History Last Taken 10/12/20] rosuvastatin 20 mg tablet 20 mg PO DAILY 07/13/18 [History Last Taken 10/12/20] diclofenac sodium 1 % topical gel 2 g TOPICAL DAILY PRN 12/26/18 [History Last Taken Unknown] nitroglycerin 0.4 mg sublingual tablet 0.4 mg SUBLINGUAL Q5-15M PRN 12/26/18 [History Last Taken 1 Month Ago ~09/12/20] omeprazole 40 mg capsule,delayed release 40 mg PO DAILY 12/26/18 [History Last Taken 10/12/20] alirocumab 150 mg SQ .Q2WEEK 12/13/19 [History Last Taken 10/04/20] zolpidem [Ambien] 5 mg PO QHS PRN 10/13/20 [History Last Taken 3 Days Ago ~10/10/20] [id number] [Creon] 3 cap PO TIDCM 10/14/20 [History Last Taken Unknown] Allergy/AdvReac Type Severity Reaction Status Date / Time oxycodone [From OxyContin] Allergy Shortness Verified 10/13/20 14:55 of breath atorvastatin [From Lipitor] AdvReac muscle Verified 10/13/20 18:55 weakness fish oil AdvReac muscle Verified 10/13/20 18:55 weakness morphine AdvReac MIGRAINE TAO Verified 10/13/20 18:55 Family History Mother Cancer Diabetes Heart disease Hypertension Father CVA (cerebral vascular accident) Diabetes Heart disease Hypertension Surgical History History of ankle surgery History of cholecystectomy History of facial surgery Hx of CABG (~08/2017) S/P coronary artery stent placement (~07/05/18) Social History (Updated 10/13/20 @ 19:22 by CLEMENT GreeneC) housing: house Smoking Status: Never smoker alcohol intake: never substance use type: does not use Results Lab / Micro Data Result Diagrams: 10/14/20 06:30 10/14/20 06:30 Charges/Coding Addendum Addendum: Dr. Blanchard: I personally reviewed the chart and examined the patient, and agree with the above findings. 70-year-old male presents to the hospital with abdominal pain on the right. He thought it was appendicitis however he had a CT scan of his abdomen that demonstrated right-sided cecal colitis. The appendix seems fine. Continue with Cipro and Flagyl as well as IV fluids. Pain meds as needed, n.p.o. except for medications. New onset anemia, rectal exam in the ER was ne gative for blood. Thrombocytopenia seems chronic, will trend. He does have a history of pancreatitis and takes Creon which we will continue. Visit Charges OBSV E&M: 72252 Initial observation care L3
[2020-10-13 19:21] VITALS: BP 137/89; PULSE 89; RESP 14; TEMP 36.6; O2SAT 97
[2020-10-13] MEDS: HYDROmorphone 0.5 MG/0.5 ML SYRINGE IV (19:26)
[2020-10-13 19:28] VITALS: BMI 29.1
[2020-10-13 19:37] VITALS: BP 181/69; PULSE 89; RESP 16; TEMP 36.7; O2SAT 98
--- NOTE | 2020-10-13 19:53 | NURSING ---
UPDATED ON TROPONINS. AwARE OF HER ENTERING ORDERS FOR REPEAT EKG NOW, [facility]. PASSED ON TO PCU CHARGE NURSE THIS WELL ORDERS WILL BE FOR HEPARIN, GETTING LASIX X1 NOW, ADDING ECHO, SENSATIVIES SERIES, AND STAT ASPIRIN.
[2020-10-13] MEDS: 0.9% Normal Saline 1,000 ML 100 ML IV (20:22)
[2020-10-13] MEDS: Ciprofloxacin 400 MG/200 ML BAG 200 MG IV (21:31)
[2020-10-13] MEDS: Pregabalin 75 MG Capsule 150 MG PO (21:33)
[2020-10-13 23:38] VITALS: BP 133/67; PULSE 82; RESP 16; TEMP 37.1; O2SAT 95
[2020-10-13 23:51] LABS: Bedside Glucose 155 mg/dL (70-110)
[2020-10-14] MEDS: 0.9% Normal Saline 1,000 ML 100 ML IV (05:35)
[2020-10-14] MEDS: metroNIDAZOLE 500 MG/100 ML BAG 100 MG IV ×2 (05:36→13:44)
[2020-10-14 05:38] VITALS: BP 149/76; PULSE 77; RESP 18; TEMP 37; O2SAT 97
[2020-10-14] MEDS: HYDROmorphone 0.5 MG/0.5 ML SYRINGE IV ×4 (05:43→22:53)
[2020-10-14 05:46] LABS: Bedside Glucose 130 mg/dL (70-110)
[2020-10-14] MEDS: 0.9% Saline Lock 10 ML Syringe IV ×3 (05:51→17:10)
[2020-10-14 06:47] LABS: Absolute Lymphocyte Count 1.74 X10^3/uL (0.83-4.51); Absolute Neutrophil Count 2.5 X10^3/uL (2.0-7.7); Basophil# 0.03 X10^3/uL; Basophil% 0.6 % (0-1); Eosinophil# 0.12 X10^3/uL; Eosinophils% 2.5 % (0-5); Hematocrit 28.3 % (40-54); Hemoglobin 8.4 g/dL (13.0-16.5); Lymphocyte # 1.74 X10^3/ul (0.83-4.51); Lymphocyte % 36.2 % (19-41); Mean Corp Hgb Conc 29.7 g/dL (32-36); Mean Corpuscular Hgb 23.9 pg (27.0-32.0); Mean Corpuscular Volume 80.4 fL (80-94); Mean Platelet Vol. 12.1 fl (6.2-12.0); Monocyte# 0.42 X10^3/uL; Monocyte% 8.7 % (0-10); NRBC Flagged by Analyzer 0 % (0-5); Neutrophil # 2.47 X10^3/uL (2.7-7.7); Neutrophil % 51.4 % (47-70); POSITIVE COUNT YES; Platelet Count 71 K/mm3 (150-450); RBC Distribution Width CV 16.5 % (11.6-14.6); RBC Distribution Width SD 48.2 fl (35.1-43.9); Red Blood Count 3.52 M/mm3 (4.6-6.2); White Blood Count 4.8 K/mm3 (4.4-11.0)
[2020-10-14 07:07] LABS: Anion Gap 5 (5-15); BUN 17 mg/dL (7-18); BUN/Creat Ratio 16.3 RATIO (10-20); Chloride 110 mmol/L (98-107); Creatinine, Serum 1.04 mg/dL (0.70-1.30); EST Glomerular Filtration Rate 75 mL/min (>60); Est Glom Filt Rate - Afr Amer 90 mL/min (>60); Estimated Creatinine Clearance 66.29 ml/min; Glucose 125 mg/dL (74-106); Sodium Level 138 mmol/L (136-145)
--- NOTE | 2020-10-14 07:25 | CON.PCM.SX_ITS ---
Assessment & Plan Assessment/Plan (1) Colitis: (2) Abdominal pain: PLAN: Continue n.p.o./IV fluids until patient's pain has improved significantlyimproved/resolved. Once pain is improved would plan to start clear liquids. Continue Cipro and Flagyl IV. We will continue to follow. Esperanza Vo M.D. Pager: [phone] [facility] [address] [place] [address], Outpatient [facility], [address] [place] [address] Office: [phone] HPI Consult Data Date of Consult: 10/14/20 HPI Narrative HPI Narrative: CAMDEN HOLDER, is a 70 M who presents due to right lower quadrant/right flank pain. Patient states he has had this pain for about 3 to 4 days and then yesterday about noon the pain got a lot worse at 10/10. Patient states the pain is slowly improving rates it about 8/10 prior to pain meds. Patient denies any nausea or vomiting was eating normally up until yesterday around noon. Patient states yesterday he had a normal bowel movement. Patient's last colonoscopy was last year which was normal per patient. Patient is never had previous pain like this before. Abdominal surgeries include laparoscopic cholecystectomy. On admission patient's white blood count was within normal limits. Patient CT abdomen pelvis did show thickening of the cecum and a normal appendix. [facility] Medical History Atherosclerotic heart disease of [place] coronary artery without angina pectoris Atrial fibrillation CAD (coronary artery disease) Carotid artery disease Cataract Cataract (lens) fragments in eye following cataract surgery, bilateral Chest pain Chronic headaches Chronic neck and back pain Essential hypertension GERD (gastroesophageal reflux disease) HLD (hyperlipidemia) Kidney stones Migraines Neuropathy NSTEMI (non-ST elevated myocardial infarction) Numbness and tingling in right hand Obstructive sleep apnea Pancreatitis Post traumatic stress disorder (PTSD) Restless legs syndrome Severe headache Type 2 diabetes mellitus Home Medications insulin aspart U-100 18 units SUBCUT TIDCM 12/23/16 [History Last Taken 10/13/20] insulin glargine 20 units SUBCUT BID 12/23/16 [History Last Taken 10/13/20] pyridoxine (vitamin B6) 100 mg PO DAILY 09/08/17 [History Last Taken 10/13/20] therapeutic multivitamin 1 ea PO DAILY 12/23/16 [History Last Taken 10/12/20] thiamine HCl (vitamin B1) 100 mg PO DAILY 12/23/16 [History Last Taken 10/13/20] xzebam-hlrabemd-qmreamk 2 cap PO TIDCM 03/20/18 [History Last Taken 10/13/20] clopidogrel 75 mg PO DAILY #90 tab 03/22/18 [Rx Last Taken 10/12/20] ondansetron HCl 8 mg tablet 8 mg PO TID PRN tab 04/23/18 [History Last Taken Unknown] pregabalin 150 mg capsule 150 mg PO BID cap 04/23/18 [History Last Taken 10/13/20] isosorbide mononitrate 30 mg tablet,extended release 24 hr 30 mg PO DAILY #90 tab 07/13/18 [Rx Last Taken 10/12/20] metoprolol succinate 100 mg tablet,extended release 24 hr 100 mg PO DAILY 07/13/18 [History Last Taken 10/12/20] rosuvastatin 20 mg tablet 20 mg PO DAILY 07/13/18 [History Last Taken 10/12/20] diclofenac sodium 1 % topical gel 2 g TOPICAL DAILY PRN 12/26/18 [History Last Taken Unknown] nitroglycerin 0.4 mg sublingual tablet 0.4 mg SUBLINGUAL Q5-15M PRN 12/26/18 [History Last Taken 1 Month Ago ~09/12/20] omeprazole 40 mg capsule,delayed release 40 mg PO DAILY 12/26/18 [History Last Taken 10/12/20] alirocumab 150 mg SQ .Q2WEEK 12/13/19 [History Last Taken 10/04/20] zolpidem [Ambien] 5 mg PO QHS PRN 10/13/20 [History Last Taken 3 Days Ago ~10/10/20] Allergy/AdvReac Type Severity Reaction Status Date / Time oxycodone [From OxyContin] Allergy Shortness Verified 10/13/20 14:55 of breath atorvastatin [From Lipitor] AdvReac muscle Verified 10/13/20 18:55 weakness fish oil AdvReac muscle Verified 10/13/20 18:55 weakness morphine AdvReac MIGRAINE TAO Verified 10/13/20 18:55 Family History Mother Cancer Diabetes Heart disease Hypertension Father CVA (cerebral vascular accident) Diabetes Heart disease Hypertension Surgical History History of ankle surgery History of cholecystectomy History of facial surgery Hx of CABG (~08/2017) S/P coronary artery stent placement (~07/05/18) Social History (Updated 10/13/20 @ 19:22 by DENISE Greene) housing: house Smoking Status: Never smoker alcohol intake: never substance use type: does not use ROS Constitutional Constitutional: Denies chills or fever(s) Cardiovascular Cardiovascular: Denies chest pain Respiratory/Chest Respiratory/Chest: Denies cough Gastrointestinal Gastrointestinal: Reports abdominal pain and nausea; Denies change in bowel habits, constipation, diarrhea or vomiting Genitourinary Genitourinary: Denies dysuria Musculoskeletal Musculoskeletal: Denies back pain Integumentary Integumentary: Denies dry skin Neurologic Neurologic: Denies abnormal speech Psychiatric Psychiatric: Denies anxiety or depression Endocrine Endocrinology: Denies change in body appearance Hematologic/Lymphatic Hematologic/Lymphatic: Denies easy bleeding or easy bruising Physical Exam Const alert, oriented x3 and no apparent distress HEENT normocephalic and head/scalp atraumatic Neck General: trachea midline Resp normal respiratory effort Cardio regular rate GI soft to palpation and non-distended Palpation: tender RLQ (And right lower flank); Negative for guarding Extremity no clubbing, cyanosis or edema Skin no rashes or lesions noted Neuro CN's II-XII intact bilaterally Psych mental status grossly normal Lab / Micro Data Result Diagrams: 10/14/20 06:30 10/14/20 06:30 Labs: Laboratory Results - last 24 hr 10/13/20 10/13/20 10/13/20 15:25 15:25 16:41 WBC 7.0 RBC 3.56 L Hgb 8.7 L Hct 28.0 L MCV 78.7 L MCH 24.4 L MCHC 31.1 L RDW Std Deviation 47.3 H RDW Coeff of [place] 16.3 H Plt Count 83 L MPV Immature Gran % (Auto) 0.700 Neut % (Auto) 56.8 Lymph % (Auto) 32.3 [place] % (Auto) 8.1 Eos % (Auto) 1.7 Baso % (Auto) 0.4 Absolute Neuts (auto) 4.0 Absolute Lymphs (auto) 2.26 Nucleated RBC % 0 Sodium 137 Potassium 4.0 Chloride 106 Carbon Dioxide 23.0 Anion Gap 8 BUN 21 H Creatinine 1.51 H Estim Creat Clear Calc 45.66 Est GFR (MDRD) Af Amer 59 L Est GFR (MDRD) Non-Af 48 L BUN/Creatinine Ratio 13.9 Glucose 269 H Calcium 8.3 L Total Bilirubin 0.60 AST 70 H ALT 42 Alkaline Phosphatase 122 H Total Protein 7.4 Albumin 2.8 L Globulin 4.6 H Albumin/Globulin Ratio 0.6 L Lipase 81 Urine Color Yellow Urine Clarity Clear Urine pH 7.0 Ur Specific [place] 1.010 Urine Protein Negative Urine Glucose (UA) 1000 H Urine Ketones Negative Urine Occult Blood Negative Urine Nitrite Negative Urine Bilirubin Negative Urine Urobilinogen Normal Ur Leukocyte Esterase Negative Urine RBC 0 SEEN Urine WBC 0 SEEN Ur Squamous Epith Cells 0 SEEN Urine Bacteria 0 SEEN Urine Mucus 0 SEEN POC Glucose 10/13/20 10/14/20 10/14/20 23:41 05:34 06:30 WBC 4.8 RBC 3.52 L Hgb 8.4 L Hct 28.3 L MCV 80.4 MCH 23.9 L MCHC 29.7 L RDW Std Deviation 48.2 H RDW Coeff of [place] 16.5 H Plt Count 71 L MPV 12.1 H Immature Gran % (Auto) 0.600 Neut % (Auto) 51.4 Lymph % (Auto) 36.2 [place] % (Auto) 8.7 Eos % (Auto) 2.5 Baso % (Auto) 0.6 Absolute Neuts (auto) 2.5 Absolute Lymphs (auto) 1.74 Nucleated RBC % 0 Sodium Potassium Chloride Carbon Dioxide Anion Gap BUN Creatinine Estim Creat Clear Calc Est GFR (MDRD) Af Amer Est GFR (MDRD) Non-Af BUN/Creatinine Ratio Glucose Calcium Total Bilirubin AST ALT Alkaline Phosphatase Total Protein Albumin Globulin Albumin/Globulin Ratio Lipase Urine Color Urine Clarity Urine pH Ur Specific [place] Urine Protein Urine Glucose (UA) Urine Ketones Urine Occult Blood Urine Nitrite Urine Bilirubin Urine Urobilinogen Ur Leukocyte Esterase Urine RBC Urine WBC Ur Squamous Epith Cells Urine Bacteria Urine Mucus POC Glucose 155 H 130 H 10/14/20 06:30 WBC RBC Hgb Hct MCV MCH MCHC RDW Std Deviation RDW Coeff of [place] Plt Count MPV Immature Gran % (Auto) Neut % (Auto) Lymph % (Auto) [place] % (Auto) Eos % (Auto) Baso % (Auto) Absolute Neuts (auto) Absolute Lymphs (auto) Nucleated RBC % Sodium 138 Potassium 4.0 Chloride 110 H Carbon Dioxide 23.0 Anion Gap 5 BUN 17 Creatinine 1.04 Estim Creat Clear Calc 66.29 Est GFR (MDRD) Af Amer 90 Est GFR (MDRD) Non-Af 75 BUN/Creatinine Ratio 16.3 Glucose 125 H Calcium 8.0 L Total Bilirubin AST ALT Alkaline Phosphatase Total Protein Albumin Globulin Albumin/Globulin Ratio Lipase Urine Color Urine Clarity Urine pH Ur Specific [place] Urine Protein Urine Glucose (UA) Urine Ketones Urine Occult Blood Urine Nitrite Urine Bilirubin Urine Urobilinogen Ur Leukocyte Esterase Urine RBC Urine WBC Ur Squamous Epith Cells Urine Bacteria Urine Mucus POC Glucose Radiology Impression Abdomen/Pelvis CT 10/13/20 15:13 IMPRESSION: Moderate stranding and wall thickening around the cecum. The appendix is visualized and appears normal. Correlate for cecal colitis. Small nonobstructing left renal stones. Electronically Signed: Barrington Bardales MD at 17:35 EDT Tel , Service support , Charges/Coding Visit Charges Inpatient E&M: 10612 Init Hosp L3
[2020-10-14 09:43] VITALS: BP 137/59; PULSE 74; RESP 18; TEMP 36.9; O2SAT 98
[2020-10-14] MEDS: Pregabalin 75 MG Capsule 150 MG PO ×2 (10:23→23:12)
[2020-10-14 10:24] VITALS: PULSE 74
[2020-10-14] MEDS: Metoprolol(XL)Succ 100 MG Tablet PO (10:24)
[2020-10-14] MEDS: Pantoprazole Sodium 40 MG Tablet PO (10:24)
[2020-10-14] MEDS: Thiamine Hydrochloride 100 MG Tablet PO (10:24)
[2020-10-14] MEDS: Clopidogrel Bisulfate 75 MG Tablet PO (10:24)
[2020-10-14] MEDS: Pyridoxine HCl 100 MG Tablet PO (10:24)
[2020-10-14] MEDS: Rosuvastatin 20 MG Tablet PO (10:24)
[2020-10-14] MEDS: Isosorbide Mononitrate 30 MG Tablet PO (10:25)
[2020-10-14] MEDS: Ciprofloxacin 400 MG/200 ML BAG 200 MG IV ×2 (10:41→23:06)
[2020-10-14 11:10] LABS: Bedside Glucose 120 mg/dL (70-110)
[2020-10-14] MEDS: Dext 5%-0.45% NS 1,000 ML 60 ML IV (12:03)
[2020-10-14 15:38] VITALS: BP 120/52; PULSE 69; RESP 18; TEMP 37.1; O2SAT 98
--- NOTE | 2020-10-14 15:55 | CASEMGMT ---
NEISHA CM in to discuss HEBERT form with patient. RN CM explained HEBERT form, patient voiced understanding. Pt signed form and filed in chart. Pt provided with a copy of signed HEBERT form. Patient had no further questions or concerns at this time.
[2020-10-14 17:11] LABS: Bedside Glucose 102 mg/dL (70-110)
[2020-10-14 22:47] VITALS: BP 120/69; PULSE 62; RESP 18; TEMP 37.1; O2SAT 94
[2020-10-14 23:46] LABS: Bedside Glucose 112 mg/dL (70-110)
[2020-10-15] MEDS: metroNIDAZOLE 500 MG/100 ML BAG 100 MG IV ×4 (00:19→22:51)
[2020-10-15 03:04] VITALS: BP 119/60; PULSE 73; RESP 18; TEMP 36.7; O2SAT 95
[2020-10-15] MEDS: HYDROmorphone 0.5 MG/0.5 ML SYRINGE IV ×2 (06:12→10:36)
[2020-10-15 06:15] LABS: Bedside Glucose 145 mg/dL (70-110)
[2020-10-15] MEDS: 0.9% Saline Lock 10 ML Syringe IV ×3 (06:16→10:37)
[2020-10-15 06:57] LABS: Absolute Neutrophil Count 3.4 X10^3/uL (2.0-7.7); Basophil# 0.05 X10^3/uL; Basophil% 0.8 % (0-1); Eosinophil# 0.22 X10^3/uL; Eosinophils% 3.3 % (0-5); Hematocrit 31.2 % (40-54); Hemoglobin 9.4 g/dL (13.0-16.5); Lymphocyte % 34.8 % (19-41); Mean Corp Hgb Conc 30.1 g/dL (32-36); Mean Corpuscular Hgb 24.1 pg (27.0-32.0); Mean Platelet Vol. 12.3 fl (6.2-12.0); Monocyte# 0.58 X10^3/uL; Monocyte% 8.8 % (0-10); NRBC Flagged by Analyzer 0 % (0-5); Neutrophil # 3.43 X10^3/uL (2.7-7.7); Neutrophil % 51.8 % (47-70); Platelet Count 102 K/mm3 (150-450); RBC Distribution Width CV 16.5 % (11.6-14.6); RBC Distribution Width SD 48.1 fl (35.1-43.9); White Blood Count 6.6 K/mm3 (4.4-11.0)
[2020-10-15] MEDS: Dext 5%-0.45% NS 1,000 ML 60 ML IV (07:14)
[2020-10-15 07:28] LABS: ALB/GLOB Ratio 0.6 RATIO (0.9-2.4); AST(SGOT) 82 U/L (15-37); Alanine Aminotransfer ALT/SGPT 42 U/L (16-61); Albumin, Serum 2.7 g/dL (3.2-5.0); Alkaline Phosphatase 127 U/L (45-117); Anion Gap 7 (5-15); BUN 16 mg/dL (7-18); BUN/Creat Ratio 13.4 RATIO (10-20); Calcium,Total 8.5 mg/dL (8.5-10.1); Chloride 108 mmol/L (98-107); Creatinine, Serum 1.19 mg/dL (0.70-1.30); EST Glomerular Filtration Rate 64 mL/min (>60); Est Glom Filt Rate - Afr Amer 77 mL/min (>60); Estimated Creatinine Clearance 57.94 ml/min; Globulin 4.9 g/dL (2.2-4.2); Glucose 136 mg/dL (74-106); Magnesium 2.1 mg/dL (1.6-2.6); Potassium 4.4 mmol/L (3.5-5.1); Protein, Total 7.6 g/dL (6.4-8.2); Sodium Level 135 mmol/L (136-145)
--- NOTE | 2020-10-15 08:52 | PCM.PN.SRG ---
Subjective Subjective Patient states his pain is improving and he is able to go longer in between pain meds. Still rates it about a 5/10. Objective Data Objective Data Vital Signs: Vital Signs Temp Pulse Resp BP Pulse Ox 98.0 F 73 18 119/60 95 10/15/20 03:04 10/15/20 03:04 10/15/20 03:04 10/15/20 03:04 10/15/20 03:04 Oxygen Delivery Method Room Air Weight: 203 lb 0.732 oz Body Mass Index (BMI) 29.1 Intake & Output: Intake and Output for Last 24 Hours 10/13/20 10/14/20 10/15/20 23:59 23:59 23:59 Intake Total 1515 / 1515 2143.01 / 2168.01 1191 / 1191 Output Total 850 / 850 Balance 1515 / 1515 1293.01 / 1318.01 1191 / 1191 Lab / Micro Data Result Diagrams: 10/15/20 06:45 10/15/20 06:45 Labs: Laboratory Results - last 24 hr 10/14/20 10/14/20 10/14/20 11:09 17:03 23:14 WBC RBC Hgb Hct MCV MCH MCHC RDW Std Deviation RDW Coeff of Angeline Plt Count MPV Immature Gran % (Auto) Neut % (Auto) Lymph % (Auto) [place] % (Auto) Eos % (Auto) Baso % (Auto) Absolute Neuts (auto) Absolute Lymphs (auto) Nucleated RBC % Sodium Potassium Chloride Carbon Dioxide Anion Gap BUN Creatinine Estim Creat Clear Calc Est GFR (MDRD) Af Amer Est GFR (MDRD) Non-Af BUN/Creatinine Ratio Glucose Calcium Magnesium Total Bilirubin AST ALT Alkaline Phosphatase Total Protein Albumin Globulin Albumin/Globulin Ratio POC Glucose 120 H 102 112 H 10/15/20 10/15/20 10/15/20 06:05 06:45 06:45 WBC 6.6 RBC 3.90 L Hgb 9.4 L Hct 31.2 L MCV 80.0 MCH 24.1 L MCHC 30.1 L RDW Std Deviation 48.1 H RDW Coeff of Angeline 16.5 H Plt Count 102 L MPV 12.3 H Immature Gran % (Auto) 0.500 Neut % (Auto) 51.8 Lymph % (Auto) 34.8 [place] % (Auto) 8.8 Eos % (Auto) 3.3 Baso % (Auto) 0.8 Absolute Neuts (auto) 3.4 Absolute Lymphs (auto) 2.30 Nucleated RBC % 0 Sodium 135 L Potassium 4.4 Chloride 108 H Carbon Dioxide 20.0 L Anion Gap 7 BUN 16 Creatinine 1.19 Estim Creat Clear Calc 57.94 Est GFR (MDRD) Af Amer 77 Est GFR (MDRD) Non-Af 64 BUN/Creatinine Ratio 13.4 Glucose 136 H Calcium 8.5 Magnesium 2.1 Total Bilirubin 0.90 AST 82 H ALT 42 Alkaline Phosphatase 127 H Total Protein 7.6 Albumin 2.7 L Globulin 4.9 H Albumin/Globulin Ratio 0.6 L POC Glucose 145 H Physical Exam Const alert, oriented x3 and no apparent distress Resp normal respiratory effort Cardio regular rate GI soft to palpation and non-distended Palpation: tender RLQ (And right lower flank); Negative for guarding Extremity no clubbing, cyanosis or edema Neuro CN's II-XII intact bilaterally Assessment & Plan Assessment/Plan (1) Colitis: (2) Abdominal pain: PLAN: Continue sips/ice chips/IV fluids until patient's pain has improved/resolved. Once pain is improved would plan to start clear liquids. Continue Cipro and Flagyl IV. We will continue to follow. Esperanza Vo M.D. Pager: [phone] [facility] [address] [place] [address], [facility], [address] [place] [id number] Office: [phone] Charges/Coding Visit Charges Inpatient E&M: 95052 Subs Hosp L2
[2020-10-15 09:00] VITALS: BP 126/64; PULSE 59; RESP 18; TEMP 36.7; O2SAT 98
[2020-10-15] MEDS: Thiamine Hydrochloride 100 MG Tablet PO (10:26)
[2020-10-15] MEDS: Ciprofloxacin 400 MG/200 ML BAG 200 MG IV ×2 (10:26→21:23)
[2020-10-15] MEDS: Pregabalin 75 MG Capsule 150 MG PO ×2 (10:26→21:23)
[2020-10-15] MEDS: Isosorbide Mononitrate 30 MG Tablet PO (10:26)
[2020-10-15] MEDS: Clopidogrel Bisulfate 75 MG Tablet PO (10:26)
[2020-10-15] MEDS: Pyridoxine HCl 100 MG Tablet PO (10:26)
[2020-10-15 10:27] VITALS: PULSE 59
[2020-10-15] MEDS: Metoprolol(XL)Succ 100 MG Tablet PO (10:27)
[2020-10-15] MEDS: Pantoprazole Sodium 40 MG Tablet PO (10:27)
[2020-10-15] MEDS: Rosuvastatin 20 MG Tablet PO (10:27)
[2020-10-15 11:46] LABS: Bedside Glucose 171 mg/dL (70-110)
--- NOTE | 2020-10-15 13:51 | PN.HOSP_ITS ---
Subjective Subjective The patient was seen and examined on 10/14/2020. This is a back note. Complaint of abdominal pain right lumbar area and flank. Objective Data Objective Data Vital Signs: Vital Signs Temp Pulse Resp BP Pulse Ox 98.1 F 59 L 18 126/64 H 98 10/15/20 09:00 10/15/20 10:27 10/15/20 09:00 10/15/20 09:00 10/15/20 09:00 Oxygen Delivery Method Room Air Weight: 203 lb 0.732 oz Body Mass Index (BMI) 29.1 Intake & Output: Intake and Output for Last 24 Hours 10/13/20 10/14/20 10/15/20 23:59 23:59 23:59 Intake Total 1515 / 1515 2143.01 / 2168.01 1541 / 1541 Output Total 850 / 850 Balance 1515 / 1515 1293.01 / 1318.01 1541 / 1541 Lab / Micro Data Result Diagrams: 10/15/20 06:45 10/15/20 06:45 Labs: Laboratory Results - last 24 hr 10/14/20 10/14/20 10/15/20 17:03 23:14 06:05 WBC RBC Hgb Hct MCV MCH MCHC RDW Std Deviation RDW Coeff of Angeline Plt Count MPV Immature Gran % (Auto) Neut % (Auto) Lymph % (Auto) [place] % (Auto) Eos % (Auto) Baso % (Auto) Absolute Neuts (auto) Absolute Lymphs (auto) Nucleated RBC % Sodium Potassium Chloride Carbon Dioxide Anion Gap BUN Creatinine Estim Creat Clear Calc Est GFR (MDRD) Af Amer Est GFR (MDRD) Non-Af BUN/Creatinine Ratio Glucose Calcium Magnesium Total Bilirubin AST ALT Alkaline Phosphatase Total Protein Albumin Globulin Albumin/Globulin Ratio POC Glucose 102 112 H 145 H 10/15/20 10/15/20 10/15/20 06:45 06:45 11:44 WBC 6.6 RBC 3.90 L Hgb 9.4 L Hct 31.2 L MCV 80.0 MCH 24.1 L MCHC 30.1 L RDW Std Deviation 48.1 H RDW Coeff of Angeline 16.5 H Plt Count 102 L MPV 12.3 H Immature Gran % (Auto) 0.500 Neut % (Auto) 51.8 Lymph % (Auto) 34.8 [place] % (Auto) 8.8 Eos % (Auto) 3.3 Baso % (Auto) 0.8 Absolute Neuts (auto) 3.4 Absolute Lymphs (auto) 2.30 Nucleated RBC % 0 Sodium 135 L Potassium 4.4 Chloride 108 H Carbon Dioxide 20.0 L Anion Gap 7 BUN 16 Creatinine 1.19 Estim Creat Clear Calc 57.94 Est GFR (MDRD) Af Amer 77 Est GFR (MDRD) Non-Af 64 BUN/Creatinine Ratio 13.4 Glucose 136 H Calcium 8.5 Magnesium 2.1 Total Bilirubin 0.90 AST 82 H ALT 42 Alkaline Phosphatase 127 H Total Protein 7.6 Albumin 2.7 L Globulin 4.9 H Albumin/Globulin Ratio 0.6 L POC Glucose 171 H Physical Exam Narrative Physical exam General: Alert, Oriented x3, Cooperative HEENT: Atraumatic, PERRLA, EOMI, Normocephalic Oral: No Gingival or Mucosal Lesions/ Ulcerations Neck: Supple, No JVD, Negative Carotid Bruits Lungs: Air entry diminished in bilateral lung bases. No crepitation/rhonchi Cardiovascular: Regular rate, Regular Rhythm, Normal S1, Normal S2, No murmurs Abdomen: Tenderness present over right lumbar and flank region. No palpable mass. Nondistended. Bowel Sounds Present : No renal angle tenderness. No suprapubic tenderness. Extremities: No edema, Capillary Refill Less than 3 Seconds Skin: No rashes, No breakdown Musculoskeletal: No Tenderness to Palpation of Joints or Extremities Neurological: Cranial nerves II-XII grossly intact, Deep Tendon Reflexes 2+/4 and Symmetrical, Neuro grossly intact Psych/Mental Status: Normal Affect, Appropriate. Assessment & Plan Assessment/Plan (1) Colitis: (2) Abdominal pain: PLAN: This is a 70-year-old with is admitted with abdominal pain mainly in the right flank region point suggestive of cecal colitis. 1. Acute cecal colitis: Patient being admitted MedSurg floor. CT shows moderate stranding and wall thickening around the cecum, normal appendix. Discussed with the surgeon. Continue IV Cipro and Flagyl. N.p.o. IV fluid changed to D5 half NS. 2. Acute microcytic anemia: Patient baseline hemoglobin is 13 to 14 g. Denies GI bleed. -Upon review of labs patient baseline hemoglobin 13-14, presents 8.7. Repeat HB 8.4. 3. Hypertension: bp IS GOOD 4. Hyperlipidemia -Continue rosuvastatin 5. Diabetes mellitus, TYPE 2: -Continue home medication regimen of insulin glargine and insulin aspart : 6. Chronic Thrombocytopenia: Platelet count low, 71 K, Stable, probably due to plavix 7. Chronic pancreatitis -Will continue digestive enzymes 8. History of CABG x3 -Currently on Plavix, will continue 9. History of cardiac stents x2 DVT prophylaxis: B/L SCD Charges/Coding Visit Charges Inpatient E&M: 60461 Subs Hosp L2
--- NOTE | 2020-10-15 14:01 | PN.HOSP_ITS ---
Subjective Subjective Patient abdomen pain has much improved. Mild 3-4/10 intermittently. No nausea or vomiting. Objective Data Objective Data Vital Signs: Vital Signs Temp Pulse Resp BP Pulse Ox 98.1 F 59 L 18 126/64 H 98 10/15/20 09:00 10/15/20 10:27 10/15/20 09:00 10/15/20 09:00 10/15/20 09:00 Oxygen Delivery Method Room Air Weight: 203 lb 0.732 oz Body Mass Index (BMI) 29.1 Intake & Output: Intake and Output for Last 24 Hours 10/13/20 10/14/20 10/15/20 23:59 23:59 23:59 Intake Total 1515 / 1515 2143.01 / 2168.01 1541 / 1541 Output Total 850 / 850 Balance 1515 / 1515 1293.01 / 1318.01 1541 / 1541 Lab / Micro Data Result Diagrams: 10/15/20 06:45 10/15/20 06:45 Labs: Laboratory Results - last 24 hr 10/14/20 10/14/20 10/15/20 17:03 23:14 06:05 WBC RBC Hgb Hct MCV MCH MCHC RDW Std Deviation RDW Coeff of [place] Plt Count MPV Immature Gran % (Auto) Neut % (Auto) Lymph % (Auto) [place] % (Auto) Eos % (Auto) Baso % (Auto) Absolute Neuts (auto) Absolute Lymphs (auto) Nucleated RBC % Sodium Potassium Chloride Carbon Dioxide Anion Gap BUN Creatinine Estim Creat Clear Calc Est GFR (MDRD) Af Amer Est GFR (MDRD) Non-Af BUN/Creatinine Ratio Glucose Calcium Magnesium Total Bilirubin AST ALT Alkaline Phosphatase Total Protein Albumin Globulin Albumin/Globulin Ratio POC Glucose 102 112 H 145 H 10/15/20 10/15/20 10/15/20 06:45 06:45 11:44 WBC 6.6 RBC 3.90 L Hgb 9.4 L Hct 31.2 L MCV 80.0 MCH 24.1 L MCHC 30.1 L RDW Std Deviation 48.1 H RDW Coeff of Angeline 16.5 H Plt Count 102 L MPV 12.3 H Immature Gran % (Auto) 0.500 Neut % (Auto) 51.8 Lymph % (Auto) 34.8 [place] % (Auto) 8.8 Eos % (Auto) 3.3 Baso % (Auto) 0.8 Absolute Neuts (auto) 3.4 Absolute Lymphs (auto) 2.30 Nucleated RBC % 0 Sodium 135 L Potassium 4.4 Chloride 108 H Carbon Dioxide 20.0 L Anion Gap 7 BUN 16 Creatinine 1.19 Estim Creat Clear Calc 57.94 Est GFR (MDRD) Af Amer 77 Est GFR (MDRD) Non-Af 64 BUN/Creatinine Ratio 13.4 Glucose 136 H Calcium 8.5 Magnesium 2.1 Total Bilirubin 0.90 AST 82 H ALT 42 Alkaline Phosphatase 127 H Total Protein 7.6 Albumin 2.7 L Globulin 4.9 H Albumin/Globulin Ratio 0.6 L POC Glucose 171 H Physical Exam Narrative Physical exam General: Alert, Oriented x3, Cooperative HEENT: Atraumatic, PERRLA, EOMI, Normocephalic Oral: No Gingival or Mucosal Lesions/ Ulcerations Neck: Supple, No JVD, Negative Carotid Bruits Lungs: Air entry diminished in bilateral lung bases. No crepitation/rhonchi Cardiovascular: Regular rate, Regular Rhythm, Normal S1, Normal S2, No murmurs Abdomen: Mild tenderness present over right lumbar and flank region. No palpable mass. Bowel Sounds Present : No renal angle tenderness. No suprapubic tenderness. Extremities: No edema, Capillary Refill Less than 3 Seconds Skin: No rashes, No breakdown Musculoskeletal: No Tenderness to Palpation of Joints or Extremities Neurological: Cranial nerves II-XII grossly intact, Deep Tendon Reflexes 2+/4 and Symmetrical, Neuro grossly intact Psych/Mental Status: Normal Affect, Appropriate. Assessment & Plan Assessment/Plan (1) Colitis: (2) Abdominal pain: PLAN: This is a 70-year-old with is admitted with abdominal pain mainly in the right flank region point suggestive of cecal colitis. 1. Acute cecal colitis: Patient being admitted MedSurg floor. CT shows moderate stranding and wall thickening around the cecum, normal appendix. Discussed with the surgeon. Continue IV Cipro and Flagyl. N.p.o. IV fluid changed to D5 half NS. 10/15: Abdominal pain gets better, can start clear liquid in afternoon. Decrease IV fluid accordingly in accordance with oral intake. Continue IV antibiotics. Surgeons note reviewed. 2. Acute microcytic anemia: Patient baseline hemoglobin is 13 to 14 g. Denies GI bleed. -Upon review of labs patient baseline hemoglobin 13-14, presents 8.7. Repeat HB 8.4. 10/15: Hemoglobin 9.4. Platelet count 102,000. 3. Hypertension: Blood pressure is good in normal range. 4. Hyperlipidemia -Continue rosuvastatin 5. Diabetes mellitus, TYPE 2: -Continue home medication regimen of insulin glargine and insulin aspart. G lucose is fairly well controlled : 6. Chronic Thrombocytopenia: Platelet count low, 71 K, Stable, probably due to plavix Platelet count improved. 7. Chronic pancreatitis: Creon was hold because of n.p.o. status. When oral intake is sufficient can resume Creon. 8. History of CABG x3 -Currently on Plavix, will continue 9. History of cardiac stents x2 DVT prophylaxis: B/L SCD Laboratory Results 10/14/20 17:03: POC Glucose 102 10/14/20 23:14: POC Glucose 112 H 10/15/20 06:05: POC Glucose 145 H 10/15/20 06:45: WBC 6.6, RBC 3.90 L, Hgb 9.4 L, Hct 31.2 L, MCV 80.0, MCH 24.1 L , MCHC 30.1 L, RDW Std Deviation 48.1 H, RDW Coeff of Angeline 16.5 H, Plt Count 102 L, MPV 12.3 H, Immature Gran % (Auto) 0.500, Neut % (Auto) 51.8, Lymph % (Auto) 34.8, [place] % (Auto) 8.8, Eos % (Auto) 3.3, Baso % (Auto) 0.8, Absolute Neuts (auto) 3.4, Absolute Lymphs (auto) 2.30, Nucleated RBC % 0 10/15/20 06:45: Sodium 135 L, Potassium 4.4, Chloride 108 H, Carbon Dioxide 20.0 L, Anion Gap 7, BUN 16, Creatinine 1.19, Estim Creat Clear Calc 57.94, Est GFR (MDRD) Af Amer 77, Est GFR (MDRD) Non-Af 64, BUN/Creatinine Ratio 13.4, Glucose 136 H, Calcium 8.5, Magnesium 2.1, Total Bilirubin 0.90, AST 82 H, ALT 42, Alkaline Phosphatase 127 H, Total Protein 7.6, Albumin 2.7 L, Globulin 4.9 H, Albumin/Globulin Ratio 0.6 L 07/01/21 11:44: POC Glucose 171 H Charges/Coding Visit Charges Inpatient E&M: 71773 Subs Hosp L2
[2020-10-15 16:31] VITALS: BP 140/67; PULSE 63; RESP 18; TEMP 37; O2SAT 98
[2020-10-15 17:00] LABS: Bedside Glucose 176 mg/dL (70-110)
[2020-10-15] MEDS: Insulin Lispro 100 UNIT/ML INSULN.PEN SC ×2 (17:07→21:31)
[2020-10-15 19:52] VITALS: BP 138/67; PULSE 73; RESP 18; TEMP 36.8; O2SAT 96
[2020-10-15] MEDS: HYDROcodone Bitartrate/Apap 5/325 Tablet PO (19:56)
[2020-10-15 21:31] LABS: Bedside Glucose 182 mg/dL (70-110)
[2020-10-15] MEDS: Creon 24,000 unit DR Capsule 3 CAP PO (22:51)
[2020-10-16 02:04] VITALS: BP 114/51; PULSE 63; RESP 18; TEMP 37.2; O2SAT 94
[2020-10-16] MEDS: metroNIDAZOLE 500 MG/100 ML BAG 100 MG IV ×3 (05:53→22:42)
[2020-10-16] MEDS: Insulin Lispro 100 UNIT/ML INSULN.PEN SC ×3 (05:57→17:08)
[2020-10-16] MEDS: HYDROcodone Bitartrate/Apap 5/325 Tablet PO ×4 (06:00→22:42)
[2020-10-16 06:01] LABS: Bedside Glucose 197 mg/dL (70-110)
[2020-10-16 06:17] LABS: Absolute Neutrophil Count 2.2 X10^3/uL (2.0-7.7); Basophil# 0.03 X10^3/uL; Basophil% 0.6 % (0-1); Eosinophil# 0.13 X10^3/uL; Eosinophils% 2.7 % (0-5); Hematocrit 29.8 % (40-54); Hemoglobin 9.1 g/dL (13.0-16.5); Mean Corp Hgb Conc 30.5 g/dL (32-36); Mean Corpuscular Hgb 24.1 pg (27.0-32.0); Mean Corpuscular Volume 78.8 fL (80-94); Mean Platelet Vol. 12.2 fl (6.2-12.0); Monocyte# 0.47 X10^3/uL; Monocyte% 9.9 % (0-10); NRBC Flagged by Analyzer 0 % (0-5); Neutrophil # 2.19 X10^3/uL (2.7-7.7); Neutrophil % 46.2 % (47-70); POSITIVE COUNT YES; Platelet Count 93 K/mm3 (150-450); RBC Distribution Width CV 16.3 % (11.6-14.6); RBC Distribution Width SD 46.8 fl (35.1-43.9); Red Blood Count 3.78 M/mm3 (4.6-6.2); White Blood Count 4.8 K/mm3 (4.4-11.0)
[2020-10-16 06:53] LABS: ALB/GLOB Ratio 0.6 RATIO (0.9-2.4); AST(SGOT) 71 U/L (15-37); Alanine Aminotransfer ALT/SGPT 36 U/L (16-61); Albumin, Serum 2.6 g/dL (3.2-5.0); Alkaline Phosphatase 118 U/L (45-117); Anion Gap 6 (5-15); BUN 18 mg/dL (7-18); BUN/Creat Ratio 14.5 RATIO (10-20); Calcium,Total 8.5 mg/dL (8.5-10.1); Chloride 107 mmol/L (98-107); Creatinine, Serum 1.24 mg/dL (0.70-1.30); EST Glomerular Filtration Rate 61 mL/min (>60); Est Glom Filt Rate - Afr Amer 74 mL/min (>60); Globulin 4.5 g/dL (2.2-4.2); Glucose 193 mg/dL (74-106); Potassium 4.3 mmol/L (3.5-5.1); Protein, Total 7.1 g/dL (6.4-8.2); Sodium Level 135 mmol/L (136-145)
[2020-10-16 08:26] VITALS: BP 115/53; PULSE 59; RESP 16; TEMP 36.6; O2SAT 97
[2020-10-16 08:30] VITALS: PULSE 59
[2020-10-16] MEDS: Creon 24,000 unit DR Capsule 3 CAP PO ×3 (08:47→17:15)
[2020-10-16] MEDS: Pregabalin 75 MG Capsule 150 MG PO ×2 (08:48→21:10)
[2020-10-16] MEDS: Isosorbide Mononitrate 30 MG Tablet PO (08:48)
[2020-10-16] MEDS: Pantoprazole Sodium 40 MG Tablet PO (08:48)
[2020-10-16] MEDS: Clopidogrel Bisulfate 75 MG Tablet PO (08:49)
[2020-10-16] MEDS: Pyridoxine HCl 100 MG Tablet PO (08:49)
[2020-10-16] MEDS: Thiamine Hydrochloride 100 MG Tablet PO (08:49)
[2020-10-16] MEDS: Rosuvastatin 20 MG Tablet PO (08:49)
[2020-10-16] MEDS: Ciprofloxacin 400 MG/200 ML BAG 200 MG IV ×2 (08:54→21:00)
--- NOTE | 2020-10-16 09:15 | PCM.PN.SRG ---
Objective Data Objective Data Vital Signs: Vital Signs Temp Pulse Resp BP Pulse Ox 97.8 F 59 L 16 115/53 L 97 10/16/20 08:26 10/16/20 08:30 10/16/20 08:26 10/16/20 08:26 10/16/20 08:26 Oxygen Delivery Method Room Air Weight: 203 lb 0.732 oz Body Mass Index (BMI) 29.1 Intake & Output: Intake and Output for Last 24 Hours 10/14/20 10/15/20 10/16/20 23:59 23:59 23:59 Intake Total 2143.01 / 2168.01 3067 / 3067 100 / 100 Output Total 850 / 850 375 / 375 Balance 1293.01 / 1318.01 3067 / 3067 -275 / -275 Lab / Micro Data Result Diagrams: 10/16/20 06:00 10/16/20 06:00 Labs: Laboratory Results - last 24 hr 10/15/20 10/15/20 10/15/20 11:44 16:54 21:26 WBC RBC Hgb Hct MCV MCH MCHC RDW Std Deviation RDW Coeff of Angeline Plt Count MPV Immature Gran % (Auto) Neut % (Auto) Lymph % (Auto) [place] % (Auto) Eos % (Auto) Baso % (Auto) Absolute Neuts (auto) Absolute Lymphs (auto) Nucleated RBC % Sodium Potassium Chloride Carbon Dioxide Anion Gap BUN Creatinine Estim Creat Clear Calc Est GFR (MDRD) Af Amer Est GFR (MDRD) Non-Af BUN/Creatinine Ratio Glucose Calcium Total Bilirubin AST ALT Alkaline Phosphatase Total Protein Albumin Globulin Albumin/Globulin Ratio POC Glucose 171 H 176 H 182 H 10/16/20 10/16/20 10/16/20 05:56 06:00 06:00 WBC 4.8 RBC 3.78 L Hgb 9.1 L Hct 29.8 L MCV 78.8 L MCH 24.1 L MCHC 30.5 L RDW Std Deviation 46.8 H RDW Coeff of Angeline 16.3 H Plt Count 93 L MPV 12.2 H Immature Gran % (Auto) 0.600 Neut % (Auto) 46.2 L Lymph % (Auto) 40.0 [place] % (Auto) 9.9 Eos % (Auto) 2.7 Baso % (Auto) 0.6 Absolute Neuts (auto) 2.2 Absolute Lymphs (auto) 1.90 Nucleated RBC % 0 Sodium 135 L Potassium 4.3 Chloride 107 Carbon Dioxide 22.0 Anion Gap 6 BUN 18 Creatinine 1.24 Estim Creat Clear Calc 55.60 Est GFR (MDRD) Af Amer 74 Est GFR (MDRD) Non-Af 61 BUN/Creatinine Ratio 14.5 Glucose 193 H Calcium 8.5 Total Bilirubin 0.70 AST 71 H ALT 36 Alkaline Phosphatase 118 H Total Protein 7.1 Albumin 2.6 L Globulin 4.5 H Albumin/Globulin Ratio 0.6 L POC Glucose 197 H Assessment & Plan Assessment/Plan (1) Colitis: (2) Abdominal pain: PLAN: Patient pain is still improving okay for full liquid diet would continue on liquids until pain has resolved then change to transitional diet for 1-2 weeks, would not plan to send patient home with pain meds. Continue Cipro and Flagyl IV. We will plan for p.o. Cipro and Flagyl p.o. on DC for total of 10-day course. Dr. Lan will be rounding for the weekend. Esperanza Vo M.D. Pager: [phone] [facility] [address] [place] [address], [facility], [address] [place] [address] Office: [phone] Charges/Coding Visit Charges Inpatient E&M: 23979 Subs Hosp L2
[2020-10-16 12:05] LABS: Bedside Glucose 276 mg/dL (70-110)
--- NOTE | 2020-10-16 13:14 | PN.HOSP_ITS ---
Subjective Subjective Abdominal pain improved, but still persists. Objective Data Objective Data Vital Signs: Vital Signs Temp Pulse Resp BP Pulse Ox 36.6 C 59 L 16 115/53 L 97 10/16/20 08:26 10/16/20 08:30 10/16/20 08:26 10/16/20 08:26 10/16/20 08:26 Oxygen Delivery Method Room Air Weight: 92.1 kg Body Mass Index (BMI) 29.1 Intake & Output: Intake and Output for Last 24 Hours 10/14/20 10/15/20 10/16/20 23:59 23:59 23:59 Intake Total 2143.01 / 2168.01 3067 / 3067 300 / 300 Output Total 850 / 850 375 / 375 Balance 1293.01 / 1318.01 3067 / 3067 -75 / -75 Lab / Micro Data Result Diagrams: 10/16/20 06:00 10/16/20 06:00 Labs: Laboratory Results - last 24 hr 10/15/20 10/15/20 10/16/20 16:54 21:26 05:56 WBC RBC Hgb Hct MCV MCH MCHC RDW Std Deviation RDW Coeff of Angeline Plt Count MPV Immature Gran % (Auto) Neut % (Auto) Lymph % (Auto) [place] % (Auto) Eos % (Auto) Baso % (Auto) Absolute Neuts (auto) Absolute Lymphs (auto) Nucleated RBC % Sodium Potassium Chloride Carbon Dioxide Anion Gap BUN Creatinine Estim Creat Clear Calc Est GFR (MDRD) Af Amer Est GFR (MDRD) Non-Af BUN/Creatinine Ratio Glucose Calcium Total Bilirubin AST ALT Alkaline Phosphatase Total Protein Albumin Globulin Albumin/Globulin Ratio POC Glucose 176 H 182 H 197 H 10/16/20 10/16/20 10/16/20 06:00 06:00 11:57 WBC 4.8 RBC 3.78 L Hgb 9.1 L Hct 29.8 L MCV 78.8 L MCH 24.1 L MCHC 30.5 L RDW Std Deviation 46.8 H RDW Coeff of Angeline 16.3 H Plt Count 93 L MPV 12.2 H Immature Gran % (Auto) 0.600 Neut % (Auto) 46.2 L Lymph % (Auto) 40.0 [place] % (Auto) 9.9 Eos % (Auto) 2.7 Baso % (Auto) 0.6 Absolute Neuts (auto) 2.2 Absolute Lymphs (auto) 1.90 Nucleated RBC % 0 Sodium 135 L Potassium 4.3 Chloride 107 Carbon Dioxide 22.0 Anion Gap 6 BUN 18 Creatinine 1.24 Estim Creat Clear Calc 55.60 Est GFR (MDRD) Af Amer 74 Est GFR (MDRD) Non-Af 61 BUN/Creatinine Ratio 14.5 Glucose 193 H Calcium 8.5 Total Bilirubin 0.70 AST 71 H ALT 36 Alkaline Phosphatase 118 H Total Protein 7.1 Albumin 2.6 L Globulin 4.5 H Albumin/Globulin Ratio 0.6 L POC Glucose 276 H Physical Exam Const alert HEENT Head and Scalp: normocephalic Resp normal respiratory effort, no retractions, no use of accessory muscles and clear to auscultation bilaterally Cardio regular rate, regular rhythm, S1 normal heart sound and S2 normal heart sound GI normal to inspection, nondistended, normoactive bowel sounds, soft to palpation, non-tender and non-distended Extremity normal to inspection Skin no rashes or lesions noted Neuro Sensorium / Orientation: awake and alert Assessment & Plan Assessment/Plan (1) Colitis: PLAN: 1. acute colitis * on cipro and metronidazole * DC Dr. Vo, advance diet to fulls. Monitor another day. 2. CAD * on clopidogrel, isosorbide, metoprolol succinate 3. anemia * Hg stable * Acute blood loss, ruled out 4. DM2 * fair control * on glargine and prandial 5. VTE prophylaxis: SCDs Charges/Coding Visit Charges Inpatient E&M: 64196 Subs Hosp L2
[2020-10-16] MEDS: 0.9% Saline Lock 10 ML Syringe IV (13:24)
[2020-10-16] MEDS: HYDROmorphone 0.5 MG/0.5 ML SYRINGE IV (13:25)
--- NOTE | 2020-10-16 13:34 | NURSING ---
PT HAVING INCREASED PAIN AFTER FULL LIQUIDS, INSTRUCTED PT TO ONLY TAKE CLEARS AT THIS TIME. NORCO WAS NOT EFFECTIVE, DILAUDID JUST GIVEN. PAGE OUT TO UPDATE DR EDDY
--- NOTE | 2020-10-16 15:19 | CASEMGMT ---
NEISHA LEMONS Assessment: Face to Face with pt for initial transition planning/care coordination assessment. RN CM introduced self and role at [facility], pt voices understanding and consents to assessment. Pt is A/O x4 and answers all questions appropriately at this time. Nurse finishing up in room. Pt sitting up in bed in no distress. Care providers, pharmacy, and demographics verified/updated. Admitting Dx: cecal colitis PCP: Lizeth Specialists: [facility] at [facility] Preferred Pharmacy: [facility] provides meds and uses [facility] for s/t meds. [facility] [place]: yes LW/HPOA: Pt states he has a LW/DPOA. States DPOA is his , Julia Bishop. LNOK: Julia Bishop, Living Arrangements: Pt lives with in a two story house with 3 steps to enter. Pt states temporarily his dtr and her and dtr are living there until they get their house built. Pt states he is I in ADL's and denies concerns at home. Transportation: Pt drives self and denies concerns with transportation. DME/HHC/SNF: Pt has a cane but states he is too proud to use it. He also has a built in seat in his shower. Pt denies hx of HHC or SNF stay. Pt states no concerns with going home at time of dc. Pt states no further concerns/needs. CM to follow. Advised pt to ask CM if any further question/concerns/needs arise, voices understanding. Pt Goal: Home Plan: Home
[2020-10-16 15:36] VITALS: BP 102/55; PULSE 60; RESP 16; TEMP 36.7; O2SAT 97
[2020-10-16 17:11] LABS: Bedside Glucose 204 mg/dL (70-110)
[2020-10-16 21:16] VITALS: BP 125/60; PULSE 63; RESP 16; TEMP 36.6; O2SAT 95
[2020-10-16 21:46] LABS: Bedside Glucose 137 mg/dL (70-110)
[2020-10-17] MEDS: metroNIDAZOLE 500 MG/100 ML BAG 100 MG IV (06:12)
[2020-10-17] MEDS: Insulin Lispro 100 UNIT/ML INSULN.PEN SC (06:13)
[2020-10-17] MEDS: HYDROcodone Bitartrate/Apap 5/325 Tablet PO ×2 (06:19→10:27)
[2020-10-17 06:21] LABS: Bedside Glucose 174 mg/dL (70-110)
[2020-10-17 06:26] VITALS: BP 147/65; PULSE 58; RESP 16; TEMP 36.5; O2SAT 98
[2020-10-17 07:45] LABS: Absolute Lymphocyte Count 2.05 X10^3/uL (0.83-4.51); Absolute Neutrophil Count 2.3 X10^3/uL (2.0-7.7); Basophil# 0.04 X10^3/uL; Basophil% 0.8 % (0-1); Eosinophil# 0.13 X10^3/uL; Eosinophils% 2.6 % (0-5); Hematocrit 32.1 % (40-54); Hemoglobin 9.6 g/dL (13.0-16.5); Lymphocyte # 2.05 X10^3/ul (0.83-4.51); Lymphocyte % 40.5 % (19-41); Mean Corp Hgb Conc 29.9 g/dL (32-36); Mean Corpuscular Hgb 23.9 pg (27.0-32.0); Mean Corpuscular Volume 79.9 fL (80-94); Mean Platelet Vol. 12.6 fl (6.2-12.0); Monocyte% 9.9 % (0-10); NRBC Flagged by Analyzer 0 % (0-5); Neutrophil % 45.4 % (47-70); POSITIVE COUNT YES; Platelet Count 99 K/mm3 (150-450); RBC Distribution Width CV 16.6 % (11.6-14.6); RBC Distribution Width SD 47.3 fl (35.1-43.9); Red Blood Count 4.02 M/mm3 (4.6-6.2); White Blood Count 5.1 K/mm3 (4.4-11.0)
[2020-10-17 08:19] LABS: Anion Gap 5 (5-15); BUN 16 mg/dL (7-18); BUN/Creat Ratio 13.7 RATIO (10-20); Calcium,Total 8.8 mg/dL (8.5-10.1); Chloride 108 mmol/L (98-107); Creatinine, Serum 1.17 mg/dL (0.70-1.30); EST Glomerular Filtration Rate 65 mL/min (>60); Est Glom Filt Rate - Afr Amer 79 mL/min (>60); Estimated Creatinine Clearance 58.93 ml/min; Glucose 170 mg/dL (74-106); Potassium 4.9 mmol/L (3.5-5.1); Sodium Level 136 mmol/L (136-145)
[2020-10-17] MEDS: Creon 24,000 unit DR Capsule 3 CAP PO (08:55)
[2020-10-17] MEDS: Rosuvastatin 20 MG Tablet PO (08:56)
[2020-10-17] MEDS: Isosorbide Mononitrate 30 MG Tablet PO (08:56)
[2020-10-17 08:58] VITALS: BP 147/65; PULSE 58
[2020-10-17] MEDS: Metoprolol(XL)Succ 100 MG Tablet PO (08:58)
[2020-10-17] MEDS: Clopidogrel Bisulfate 75 MG Tablet PO (08:58)
[2020-10-17] MEDS: Pregabalin 75 MG Capsule 150 MG PO (09:01)
[2020-10-17] MEDS: Pantoprazole Sodium 40 MG Tablet PO (09:02)
[2020-10-17] MEDS: Thiamine Hydrochloride 100 MG Tablet PO (09:02)
[2020-10-17] MEDS: Pyridoxine HCl 100 MG Tablet PO (09:03)
--- NOTE | 2020-10-17 09:38 | PCM.DC ---
Discharge Instructions Diet Discharge Diet: - (Transitional diet for 1-2 weeks) Activity Discharge Activity: Return to Normal Activity Dressing / Incision Call your doctor if you observe: - (worsening abdominal pain.) Follow Up Care Test Results: Test results from this visit will be discussed in further detail at your follow-up appointment, if applicable. Discharge Plan Admission Admit Date/Time: 10/16/20 14:22 Attending Provider: Fransisco Woodward Primary Care Provider: Dima Tvaarez Instructions Patient Instructions: ED Chest Pain, Noncardiac Discharge Orders/Prescriptions Prescriptions: New ciprofloxacin HCl [Cipro] 500 mg tablet 500 mg PO BID Qty: 14 RF: 0 metronidazole [Flagyl] 500 mg tablet 500 mg PO Q8H Qty: 21 RF: 0 acetaminophen 500 mg tablet 500 mg PO Q4H PRN (Reason: fever or pain) Qty: 1 RF: 0 Continued diclofenac sodium 1 % gel 2 g TOPICAL DAILY PRN (Reason: Pain Or Fever) RF: 0 omeprazole 40 mg capsule,delayed release(DR/EC) 40 mg PO DAILY RF: 0 thiamine HCl (vitamin B1) 100 MG tablet 100 mg PO DAILY RF: 0 therapeutic multivitamin 1 EACH tablet 1 ea PO DAILY RF: 0 pyridoxine (vitamin B6) 100 MG tablet 100 mg PO DAILY RF: 0 insulin aspart U-100 100 UNITS/ML insulin pen 18 units subcut TIDCM RF: 0 insulin glargine 100 UNITS/ML insulin pen 20 units subcut BID RF: 0 pregabalin 150 mg capsule 150 mg PO BID RF: 0 clopidogrel 75 MG tablet 75 mg PO DAILY Qty: 90 RF: 3 alirocumab 150 MG/ML pen injector 150 mg SQ .Q2WEEK RF: 0 zolpidem [Ambien] 5 mg Tablet 5 mg PO QHS PRN (Reason: Sleep) RF: 0 Creon 24,000-76,000 -120,000 unit Capsule,Delayed Release(Dr/Ec) 3 cap PO TIDCM RF: 0 metoprolol succinate 100 mg tablet extended release 24 hr 100 mg PO DAILY RF: 0 rosuvastatin 20 mg tablet 20 mg PO DAILY RF: 0 isosorbide mononitrate 30 mg tablet extended release 24 hr 30 mg PO DAILY Qty: 90 RF: 3 No Action ondansetron HCl 8 mg tablet 8 mg PO TID PRN (Reason: nausea vomiting) RF: 0 nitroglycerin 0.4 mg tablet, sublingual 0.4 mg SUBLINGUAL Q5-15M PRN (Reason: cp) RF: 0 Referrals / Follow Up: Dima Tavarez MD [Primary Care Provider] - Within 1 Week Disposition Disposition (needs filled in before D/C Order can be placed): Home, Self Care
--- NOTE | 2020-10-17 09:47 | DS.PCM_ITS ---
Providers Date of Admission: 10/16/20 Primary Care Physician: Dr. Dima Tavarez MD Reason For Visit: CECAL COLITIS Diagnosis Discharge Diagnosis (1) Colitis: Status: Acute Code(s): K52.9 - Noninfective gastroenteritis and colitis, unspecified Medications at Discharge Home Medications insulin aspart U-100 18 units SUBCUT TIDCM 12/23/16 insulin glargine 20 units SUBCUT BID 12/23/16 pyridoxine (vitamin B6) 100 mg PO DAILY 12/23/16 therapeutic multivitamin 1 ea PO DAILY 12/23/16 thiamine HCl (vitamin B1) 100 mg PO DAILY 12/23/16 clopidogrel 75 mg PO DAILY #90 tab 03/22/18 ondansetron HCl 8 mg tablet 8 mg PO TID PRN tab 04/23/18 pregabalin 150 mg capsule 150 mg PO BID cap 04/23/18 isosorbide mononitrate 30 mg tablet,extended release 24 hr 30 mg PO DAILY #90 tab 07/13/18 metoprolol succinate 100 mg tablet,extended release 24 hr 100 mg PO DAILY 07/13/18 rosuvastatin 20 mg tablet 20 mg PO DAILY 07/13/18 diclofenac sodium 1 % topical gel 2 g TOPICAL DAILY PRN 12/26/18 nitroglycerin 0.4 mg sublingual tablet 0.4 mg SUBLINGUAL Q5-15M PRN 12/26/18 omeprazole 40 mg capsule,delayed release 40 mg PO DAILY 12/26/18 alirocumab 150 mg SQ .Q2WEEK 12/13/19 zolpidem [Ambien] 5 mg PO QHS PRN 10/13/20 Creon 3 cap PO TIDCM 10/14/20 acetaminophen 500 mg PO Q4H PRN #1 tab 10/17/20 ciprofloxacin HCl [Cipro] 500 mg PO BID #14 tab 10/17/20 metronidazole [Flagyl] 500 mg PO Q8H #21 tab 10/17/20 Hospital Course Operations None Procedures None Summary of Care Provided Minutes Spent on Discharge: 32 Hospital Course: 70-year-old male presents with 2-day history of abdominal pain. Located in the right lower quadrant. Patient had intense pain of [address] scan of the abdomen pelvis showed moderate stranding and wall thickening around the cecum. Patient was seen in consultation by general surgery. No surgery was necessary. Patient's course has steadily improved over the past few days and patient's pain level is now 1 out of 10. Patient has tolerating clear diet and full liquids. Patient can transition over to transitional diet for the next 1 to 2 weeks. Patient will continue with ciprofloxacin and metronidazole for 7 more days. Physical Exam Const alert Eyes PERRL Cardio regular rate, regular rhythm, S1 normal heart sound and S2 normal heart sound GI normal to inspection, nondistended, normoactive bowel sounds, non-tender and non-distended Weight / BMI Weight Weight: 92.1 kg Body Mass Index (BMI) 29.1 ABG / Lab / Microbiology Data Result Diagrams: 10/17/20 06:21 10/17/20 06:21 Laboratory: Laboratory Results - last 24 hr 10/16/20 10/16/20 10/16/20 11:57 17:01 21:09 WBC RBC Hgb Hct MCV MCH MCHC RDW Std Deviation RDW Coeff of Angeline Plt Count MPV Immature Gran % (Auto) Neut % (Auto) Lymph % (Auto) [place] % (Auto) Eos % (Auto) Baso % (Auto) Absolute Neuts (auto) Absolute Lymphs (auto) Nucleated RBC % Sodium Potassium Chloride Carbon Dioxide Anion Gap BUN Creatinine Estim Creat Clear Calc Est GFR (MDRD) Af Amer Est GFR (MDRD) Non-Af BUN/Creatinine Ratio Glucose Calcium POC Glucose 276 H 204 H 137 H 10/17/20 10/17/20 10/17/20 06:10 06:21 06:21 WBC 5.1 RBC 4.02 L Hgb 9.6 L Hct 32.1 L MCV 79.9 L MCH 23.9 L MCHC 29.9 L RDW Std Deviation 47.3 H RDW Coeff of Angeline 16.6 H Plt Count 99 L MPV 12.6 H Immature Gran % (Auto) 0.800 Neut % (Auto) 45.4 L Lymph % (Auto) 40.5 [place] % (Auto) 9.9 Eos % (Auto) 2.6 Baso % (Auto) 0.8 Absolute Neuts (auto) 2.3 Absolute Lymphs (auto) 2.05 Nucleated RBC % 0 Sodium 136 Potassium 4.9 Chloride 108 H Carbon Dioxide 23.0 Anion Gap 5 BUN 16 Creatinine 1.17 Estim Creat Clear Calc 58.93 Est GFR (MDRD) Af Amer 79 Est GFR (MDRD) Non-Af 65 BUN/Creatinine Ratio 13.7 Glucose 170 H Calcium 8.8 POC Glucose 174 H D/C Instructions Discharge Diet: - (Transitional diet for 1-2 weeks) Call your doctor if you observe: - (worsening abdominal pain.) Meaningful Use Info Meaningful Use Diagnoses (Choose all that apply): None applicable Discharge Plan Admission Admit Date/Time: 10/16/20 14:22 Attending Provider: Fransisco Woodward Primary Care Provider: Dima Tavarez Instructions Patient Instructions: ED Chest Pain, Noncardiac Discharge Orders/Prescriptions Prescriptions: New ciprofloxacin HCl [Cipro] 500 mg tablet 500 mg PO BID Qty: 14 RF: 0 metronidazole [Flagyl] 500 mg tablet 500 mg PO Q8H Qty: 21 RF: 0 acetaminophen 500 mg tablet 500 mg PO Q4H PRN (Reason: fever or pain) Qty: 1 RF: 0 Continued diclofenac sodium 1 % gel 2 g TOPICAL DAILY PRN (Reason: Pain Or Fever) RF: 0 omeprazole 40 mg capsule,delayed release(DR/EC) 40 mg PO DAILY RF: 0 thiamine HCl (vitamin B1) 100 MG tablet 100 mg PO DAILY RF: 0 therapeutic multivitamin 1 EACH tablet 1 ea PO DAILY RF: 0 pyridoxine (vitamin B6) 100 MG tablet 100 mg PO DAILY RF: 0 insulin aspart U-100 100 UNITS/ML insulin pen 18 units subcut TIDCM RF: 0 insulin glargine 100 UNITS/ML insulin pen 20 units subcut BID RF: 0 pregabalin 150 mg capsule 150 mg PO BID RF: 0 clopidogrel 75 MG tablet 75 mg PO DAILY Qty: 90 RF: 3 alirocumab 150 MG/ML pen injector 150 mg SQ .Q2WEEK RF: 0 zolpidem [Ambien] 5 mg Tablet 5 mg PO QHS PRN (Reason: Sleep) RF: 0 Creon 24,000-76,000 -120,000 unit Capsule,Delayed Release(Dr/Ec) 3 cap PO TIDCM RF: 0 metoprolol succinate 100 mg tablet extended release 24 hr 100 mg PO DAILY RF: 0 rosuvastatin 20 mg tablet 20 mg PO DAILY RF: 0 isosorbide mononitrate 30 mg tablet extended release 24 hr 30 mg PO DAILY Qty: 90 RF: 3 No Action ondansetron HCl 8 mg tablet 8 mg PO TID PRN (Reason: nausea vomiting) RF: 0 nitroglycerin 0.4 mg tablet, sublingual 0.4 mg SUBLINGUAL Q5-15M PRN (Reason: cp) RF: 0 Referrals / Follow Up: Dima Tavarez MD [Primary Care Provider] - Within 1 Week Disposition Disposition (needs filled in before D/C Order can be placed): Home, Self Care Charges/Coding Visit Charges Inpatient E&M: 70733 Disch Hosp
--- NOTE | 2020-10-17 09:49 | PCM.PN.SRG ---
Subjective Subjective Patient states that he feels much less pain, he is ready to go home Objective Data Objective Data Vital Signs: Vital Signs Temp Pulse Resp BP Pulse Ox 97.7 F L 58 L 16 147/65 H 98 10/17/20 06:26 10/17/20 08:58 10/17/20 06:26 10/17/20 08:58 10/17/20 06:26 Oxygen Delivery Method Room Air Weight: 92.1 kg Body Mass Index (BMI) 29.1 Intake & Output: Intake and Output for Last 24 Hours 10/15/20 10/16/20 10/17/20 23:59 23:59 23:59 Intake Total 3067 / 3067 2060 / 2060 100 / 100 Output Total 375 / 375 Balance 3067 / 3067 1685 / 1685 100 / 100 Lab / Micro Data Result Diagrams: 10/17/20 06:21 10/17/20 06:21 Labs: Laboratory Results - last 24 hr 10/16/20 10/16/20 10/16/20 11:57 17:01 21:09 WBC RBC Hgb Hct MCV MCH MCHC RDW Std Deviation RDW Coeff of Angeline Plt Count MPV Immature Gran % (Auto) Neut % (Auto) Lymph % (Auto) Morrison % (Auto) Eos % (Auto) Baso % (Auto) Absolute Neuts (auto) Absolute Lymphs (auto) Nucleated RBC % Sodium Potassium Chloride Carbon Dioxide Anion Gap BUN Creatinine Estim Creat Clear Calc Est GFR (MDRD) Af Amer Est GFR (MDRD) Non-Af BUN/Creatinine Ratio Glucose Calcium POC Glucose 276 H 204 H 137 H 10/17/20 10/17/20 10/17/20 06:10 06:21 06:21 WBC 5.1 RBC 4.02 L Hgb 9.6 L Hct 32.1 L MCV 79.9 L MCH 23.9 L MCHC 29.9 L RDW Std Deviation 47.3 H RDW Coeff of Angeline 16.6 H Plt Count 99 L MPV 12.6 H Immature Gran % (Auto) 0.800 Neut % (Auto) 45.4 L Lymph % (Auto) 40.5 Morrison % (Auto) 9.9 Eos % (Auto) 2.6 Baso % (Auto) 0.8 Absolute Neuts (auto) 2.3 Absolute Lymphs (auto) 2.05 Nucleated RBC % 0 Sodium 136 Potassium 4.9 Chloride 108 H Carbon Dioxide 23.0 Anion Gap 5 BUN 16 Creatinine 1.17 Estim Creat Clear Calc 58.93 Est GFR (MDRD) Af Amer 79 Est GFR (MDRD) Non-Af 65 BUN/Creatinine Ratio 13.7 Glucose 170 H Calcium 8.8 POC Glucose 174 H Physical Exam Narrative abdomen is soft and benign, no tenderness with deep palpation in the area of the patient's concern
[2020-10-17 10:43] VITALS: BP 147/65; PULSE 58; RESP 18; TEMP 36.5; O2SAT 98
== END 2020-10-17 10:43 | disposition home or self-care (01) | DRG 392 ==
LOC: ED 17:15 → MS3 19:03
PROVIDERS: Emergency Medicine; Internal Medicine; Admitting Provider Family Medicine; Emergency Provider Emergency Medicine; PCP Family Medicine
DX: K52.9 Noninfective gastroenteritis and colitis, unspecified (principal); K86.1 Other chronic pancreatitis; D69.6 Thrombocytopenia, unspecified; D64.9 Anemia, unspecified; I25.10 Atherosclerotic heart disease of native coronary artery without angina pectoris; I48.91 Unspecified atrial fibrillation; I77.9 Disorder of arteries and arterioles, unspecified; H26.9 Unspecified cataract; I10 Essential (primary) hypertension; G89.29 Other chronic pain; K21.9 Gastro-esophageal reflux disease without esophagitis; E78.5 Hyperlipidemia, unspecified; F43.10 Post-traumatic stress disorder, unspecified; G43.909 Migraine, unspecified, not intractable, without status migrainosus; E11.40 Type 2 diabetes mellitus with diabetic neuropathy, unspecified; I25.2 Old myocardial infarction; G47.33 Obstructive sleep apnea (adult) (pediatric); G25.81 Restless legs syndrome; Z87.19 Personal history of other diseases of the digestive system; Z87.442 Personal history of urinary calculi; Z95.1 Presence of aortocoronary bypass graft; Z79.4 Long term (current) use of insulin; Z79.02 Long term (current) use of antithrombotics/antiplatelets; Z79.899 Other long term (current) drug therapy; Z90.49 Acquired absence of other specified parts of digestive tract
CPT/HCPCS: 36415; 74177; 80048; 80053; 81001; 82962; 83690; 83735; 85025; 97802; 99282; J7030; J7050; Q9967; A4216; J0744; J2405; J7799

== ENCOUNTER 2020-12-04 11:23 | Inpatient (IN) | payer OTHER, MEDICARE, SELFPAY ==
[2018-03-21 13:40] VITALS: BMI 31.6
[2020-12-04] VITALS (15 sets, daily range): BP systolic 100–172; BP diastolic 48–73; PULSE 62–82; RESP 16–20; TEMP 36.6–37.5; O2SAT 93–100; BMI 28.7; BMI 28.8
--- NOTE | 2020-12-04 11:43 | EKG12_ITS ---
Test Reason : HYPERTENSION Blood Pressure : / mmHG Vent. Rate : 069 BPM Atrial Rate : 069 BPM P-R Int : 166 ms QRS Dur : 080 ms QT Int : 402 ms P-R-T Axes : 039 -12 026 degrees QTc Int : 430 ms Normal sinus rhythm Inferior infarct , age undetermined Anterior infarct , age undetermined Abnormal ECG Confirmed by DAVID REYNA, EVANGELISTA ([id number]), editor dictionary GENEVA VERA ([id number]) on 12/07/2020 1:30:43 PM Referred By: MARY Confirmed By:PAIGE HERNANDEZ MD
--- NOTE | 2020-12-04 11:44 | EDS_ITS ---
HPI History of Present Illness Chief Complaint: Hypotension Detail of Chief Complaint: Fatigue and recently diagnosed with anemia. Informant: patient and spouse/S.O. Onset/Context/Timing Onset: Weeks Context: Gradual Onset Timing: Continuous Current Severity: Mild Maximum Severity: Mild Narrative Narrative: 70-year-old male history of coronary disease with prior triple bypass and 2 stents. He is also diabetic. In October he was hospitalized for colitis. Was on antibiotics. Previously was on Plavix but that has since been stopped. They diagnosed him with low hemoglobin but has not needed transfuse him for his anemia. Recently has been more fatigued and tired and hemoglobin has been as low as 7 on labs and the feeling is now he may need transfusion. He denies any obvious melena or prior history of GI bleeds that he is aware of. Prior similar symptoms: Yes Recent Illness/Hospitalization: Yes PFSH [facility] Medical History Atherosclerotic heart disease of pala coronary artery without angina pectoris Atrial fibrillation CAD (coronary artery disease) Carotid artery disease Cataract Cataract (lens) fragments in eye following cataract surgery, bilateral Chest pain Chronic headaches Chronic neck and back pain Essential hypertension GERD (gastroesophageal reflux disease) HLD (hyperlipidemia) Kidney stones Migraines Neuropathy NSTEMI (non-ST elevated myocardial infarction) Numbness and tingling in right hand Obstructive sleep apnea Pancreatitis Post traumatic stress disorder (PTSD) Restless legs syndrome Severe headache Type 2 diabetes mellitus Home Medications insulin aspart U-100 18 units SUBCUT TIDCM 12/23/16 [History Last Taken 10/13/20] insulin glargine 20 units SUBCUT BID 12/23/16 [History Last Taken 10/13/20] pyridoxine (vitamin B6) 100 mg PO DAILY 12/23/16 [History Last Taken 10/13/20] therapeutic multivitamin 1 ea PO DAILY 12/23/16 [History Last Taken 10/12/20] thiamine HCl (vitamin B1) 100 mg PO DAILY 12/23/16 [History Last Taken 10/13/20] clopidogrel 75 mg PO DAILY #90 tab 03/22/18 [Rx Last Taken 10/12/20] ondansetron HCl 8 mg tablet 8 mg PO TID PRN tab 04/23/18 [History Last Taken Unknown] pregabalin 150 mg capsule 150 mg PO BID cap 04/23/18 [History Last Taken 10/13/20] isosorbide mononitrate 30 mg tablet,extended release 24 hr 30 mg PO DAILY #90 tab 07/13/18 [Rx Last Taken 10/12/20] metoprolol succinate 100 mg tablet,extended release 24 hr 100 mg PO DAILY 07/13/18 [History Last Taken 10/12/20] rosuvastatin 20 mg tablet 20 mg PO DAILY 07/13/18 [History Last Taken 10/12/20] diclofenac sodium 1 % topical gel 2 g TOPICAL DAILY PRN 12/26/18 [History Last Taken Unknown] nitroglycerin 0.4 mg sublingual tablet 0.4 mg SUBLINGUAL Q5-15M PRN 12/26/18 [History Last Taken 1 Month Ago ~09/12/20] omeprazole 40 mg capsule,delayed release 40 mg PO DAILY 12/26/18 [History Last Taken 10/12/20] alirocumab 150 mg SQ .Q2WEEK 12/13/19 [History Last Taken 10/04/20] zolpidem [Ambien] 5 mg PO QHS PRN 10/13/20 [History Last Taken 3 Days Ago ~10/10/20] Creon 3 cap PO TIDCM 10/14/20 [History Last Taken Unknown] acetaminophen 500 mg PO Q4H PRN #1 tab 10/17/20 [Rx Last Taken Unknown] ciprofloxacin HCl [Cipro] 500 mg PO BID #14 tab 10/17/20 [Rx Last Taken Unknown] metronidazole [Flagyl] 500 mg PO Q8H #21 tab 10/17/20 [Rx Last Taken Unknown] Allergy/AdvReac Type Severity Reaction Status Date / Time oxycodone [From OxyContin] Allergy Shortness Verified 12/04/20 11:26 of breath atorvastatin [From Lipitor] AdvReac muscle Verified 12/04/20 11:26 weakness fish oil AdvReac muscle Verified 12/04/20 11:26 weakness morphine AdvReac MIGRAINE TAO Verified 12/04/20 11:26 Family History (Updated 12/04/20 @ 12:29 by Fadi Reeves) Mother Diabetes Heart disease Cancer Hypertension Father Diabetes Heart disease Hypertension CVA (cerebral vascular accident) Sister Ulcerative colitis Surgical History History of ankle surgery History of cholecystectomy History of facial surgery Hx of CABG (~08/2017) S/P coronary artery stent placement (~07/05/18) Social History housing: house Smoking Status: Never smoker alcohol intake: never substance use type: does not use ROS ROS ED ROS Narrative Intermittent diarrhea. Review of Systems ROS Unobtainable: Denies due to encephalopathy Constitutional Constitutional ED: Denies chills or fever(s) Eyes Eyes: Denies change in vision ENT ENT ED: Denies ear pain or sore throat Cardiovascular Cardiovascular: Reports chest pain Respiratory/Chest Respiratory/Chest: Reports dyspnea; Denies cough or sputum Gastrointestinal Gastrointestinal: Reports diarrhea; Denies abdominal pain, nausea or vomiting Genitourinary Genitourinary ED: Denies dysuria or hematuria Musculoskeletal Musculoskeletal: Denies myalgias Integumentary Denies rash Neurologic Neurologic: Denies headache(s) Psychiatric Psychiatric: Denies depression Endocrine Endocrinology: Denies polyuria Allergic/Immunologic Allergic/Immunologic ED: Denies urticaria EXAM Physical Exam Narrative Exam Narrative: 68-year-old male no acute distress vital signs stable afebrile. Initial blood pressure 120/56. Pulse ox 97% on room air no hypoxia. HEENT exam unremarkable. Neck nontender. Lungs clear to auscultation bilaterally. Heart regular rhythm rate about 70 no murmur. Abdomen soft nontender normal bowel sounds no peritoneal signs. Moving all 4 extremities. Nontender. No edema. Neurologically is awake and alert with no focal motor deficits. Skin unremarkable. Const Vital Signs: 12/04/20 11:23 12/04/20 12:32 Temperature 98.5 F Temperature Source Temporal Pulse Rate 68 Respiratory Rate 20 H Respiratory Pattern Normal Blood Pressure 128/56 H Blood Pressure Mean 80 Pulse Ox 97 Oxygen Delivery Method Room Air Positive well nourished and well developed General Appearance ED: well developed and NAD HEENT Reports moist mucous membranes Negative for trauma or tenderness Eyes PERRL and EOMs intact bilaterally Neck no lymphadenopathy, supple and no JVD General: Negative for tenderness Chest Wall inspection of chest normal and palpation of chest normal Resp normal respiratory effort and clear to auscultation bilaterally Auscultation: Negative for rales, rhonchi or wheezes Cardio regular rate, regular rhythm, S1 normal heart sound, S2 normal heart sound and no murmurs GI normal to inspection, nondistended, normoactive bowel sounds, non-tender, non- distended and no masses Inspection: Negative for abdominal distention Auscultation: normoactive bowel sounds Palpation: soft; Negative for tender, guarding or rebound tenderness present Back/Spine no CVA tenderness General Back: Negative for CVA tenderness Extremity normal to inspection General Extremety ED: Negative for edema or tenderness General Extremity: Negative for edema Neuro oriented x3 and CN's II-XII intact bilaterally Sensorium / Orientation: alert; Negative for orientation impaired, lethargic or stuporous Motor Exam: strength 5/5 throughout Psych mental status grossly normal Skin no rashes or lesions noted and no wounds MDM MDM MDM Narrative Medical decision making narrative: 70-year-old male complaining of generalized weakness and fatigue reportedly recent diagnosis anemic. Screening labs being obtained. He may need to be transfused. Repeat exam patient doing well at 2:27 PM. With his hemoglobin being 8 and his symptoms I am a type and cross him for 2 units and transfusing. Speak to the hospitalist about admission. Lab Data Attestation: I reviewed the patient's lab results. Lab results narrative: CBC shows a white count of 6.8. Hemoglobin of 8. Electrolytes unremarkable gap of 5. Creatinine 1.1. Labs: Laboratory Results - last 24 hr 12/04/20 12/04/20 12/04/20 12:26 12:26 12:26 WBC 6.8 RBC 3.69 L Hgb 8.0 L Hct 27.9 L MCV 75.6 L MCH 21.7 L MCHC 28.7 L RDW Std Deviation 47.8 H RDW Coeff of Angeline 17.5 H Plt Count 99 L Immature Gran % (Auto) 0.400 Neut % (Auto) 56.2 Lymph % (Auto) 33.2 [place] % (Auto) 7.8 Eos % (Auto) 1.8 Baso % (Auto) 0.6 Absolute Neuts (auto) 3.8 Absolute Lymphs (auto) 2.26 Nucleated RBC % 0 Platelet Estimate SLT DEC Sodium 139 Potassium 4.4 Chloride 110 H Carbon Dioxide 24.0 Anion Gap 5 BUN 20 H Creatinine 1.16 Estim Creat Clear Calc 59.43 Est GFR (MDRD) Af Amer 79 Est GFR (MDRD) Non-Af 66 BUN/Creatinine Ratio 17.2 Glucose 230 H Calcium 9.5 Blood Type A POSITIVE Antibody Screen NEGATIVE Radiography Chest X-Ray - ED: 1 View, Read by ED Physician, Read by Radiologist, Lungs, Mediastinum, Bony Structures, No Acute Disease, Chronic Changes and Cardiomegaly Diagnostic Testing: Radiology Impression Chest X-Ray 12/04/20 11:51 IMPRESSION: No focal patchy airspace opacities or effusions Mild congestion/vascular crowding Cardiomegaly with postsurgical change Electronically Signed: Fransisco Reyez DO at 12:04 EDT Tel , Service support , Rhythm Strip Rhythm Strip: Sinus Rhythm Rate: 69 Ectopy: None EKG Initial EKG: Attestation: I personally reviewed and interpreted this EKG as follows: Interpretation: Sinus Rhythm and No Acute Injury Pattern Comments: Normal sinus rhythm rate of 69 no acute signs of SC or ischemia. Prior EKG tracings: not available for review Discharge Plan Triage Chief Complaint: Hypotension ED Provider: Aman Stringer Dx/Rx/DC Orders Clinical Impression: Anemia, Fatigue, History of coronary artery disease Prescriptions: No Action ondansetron HCl 8 mg tablet 8 mg PO TID PRN (Reason: nausea vomiting) RF: 0 diclofenac sodium 1 % gel 2 g TOPICAL DAILY PRN (Reason: Pain Or Fever) RF: 0 omeprazole 40 mg capsule,delayed release(DR/EC) 40 mg PO DAILY RF: 0 nitroglycerin 0.4 mg tablet, sublingual 0.4 mg SUBLINGUAL Q5-15M PRN (Reason: cp) RF: 0 thiamine HCl (vitamin B1) 100 MG tablet 100 mg PO DAILY RF: 0 therapeutic multivitamin 1 EACH tablet 1 ea PO DAILY RF: 0 pyridoxine (vitamin B6) 100 MG tablet 100 mg PO DAILY RF: 0 insulin aspart U-100 100 UNITS/ML insulin pen 18 units subcut TIDCM RF: 0 insulin glargine 100 UNITS/ML insulin pen 20 units subcut BID RF: 0 pregabalin 150 mg capsule 150 mg PO BID RF: 0 clopidogrel 75 MG tablet 75 mg PO DAILY Qty: 90 RF: 3 alirocumab 150 MG/ML pen injector 150 mg SQ .Q2WEEK RF: 0 zolpidem [Ambien] 5 mg Tablet 5 mg PO QHS PRN (Reason: Sleep) RF: 0 Creon 24,000-76,000 -120,000 unit Capsule,Delayed Release(Dr/Ec) 3 cap PO TIDCM RF: 0 ciprofloxacin HCl [Cipro] 500 mg tablet 500 mg PO BID Qty: 14 RF: 0 metronidazole [Flagyl] 500 mg tablet 500 mg PO Q8H Qty: 21 RF: 0 acetaminophen 500 mg tablet 500 mg PO Q4H PRN (Reason: fever or pain) Qty: 1 RF: 0 metoprolol succinate 100 mg tablet extended release 24 hr 100 mg PO DAILY RF: 0 rosuvastatin 20 mg tablet 20 mg PO DAILY RF: 0 isosorbide mononitrate 30 mg tablet extended release 24 hr 30 mg PO DAILY Qty: 90 RF: 3 Primary Care Provider: Dima Tavarez Referrals: Dima Tavarez MD [Primary Care Provider] - Disposition Disposition: Acute Care Hospital [facility]
--- NOTE | 2020-12-04 11:51 | RAD_ITS ---
STUDY: X-RAY CHEST REASON FOR EXAM: Male, 70 years old. weakness TECHNIQUE: Single AP portable view of the chest. COMPARISON: 01/28/2020. FINDINGS: Median sternotomy. CABG. Cardiomegaly. Mild congestion/vascular crowding. Aorta unremarkable. No focal patchy airspace opacities. No pleural effusions. Minimal right-sided atelectasis/scarring. Upper abdomen unremarkable. Osseous structures intact. No pneumothorax. RAD/Chest 1 View (Portable) IMPRESSION: No focal patchy airspace opacities or effusions Mild congestion/vascular crowding Cardiomegaly with postsurgical change Electronically Signed: Fransisco Reyez DO at 12:04 EDT Tel , Service support ,
[2020-12-04 12:52] LABS: Absolute Lymphocyte Count 2.26 X10^3/uL (0.83-4.51); Absolute Neutrophil Count 3.8 X10^3/uL (2.0-7.7); Basophil# 0.04 X10^3/uL; Basophil% 0.6 % (0-1); Eosinophil# 0.12 X10^3/uL; Eosinophils% 1.8 % (0-5); Hematocrit 27.9 % (40-54); Lymphocyte # 2.26 X10^3/ul (0.83-4.51); Lymphocyte % 33.2 % (19-41); Mean Corp Hgb Conc 28.7 g/dL (32-36); Mean Corpuscular Hgb 21.7 pg (27.0-32.0); Mean Corpuscular Volume 75.6 fL (80-94); Monocyte# 0.53 X10^3/uL; Monocyte% 7.8 % (0-10); NRBC Flagged by Analyzer 0 % (0-5); Neutrophil # 3.83 X10^3/uL (2.7-7.7); Neutrophil % 56.2 % (47-70); POSITIVE COUNT YES; Platelet Count 99 K/mm3 (150-450); RBC Distribution Width CV 17.5 % (11.6-14.6); RBC Distribution Width SD 47.8 fl (35.1-43.9); Red Blood Count 3.69 M/mm3 (4.6-6.2); White Blood Count 6.8 K/mm3 (4.4-11.0)
[2020-12-04 12:54] LABS: Differential Indicated SCAN CRITERIA MET
[2020-12-04 13:00] LABS: Anion Gap 5 (5-15); BUN 20 mg/dL (7-18); BUN/Creat Ratio 17.2 RATIO (10-20); Calcium,Total 9.5 mg/dL (8.5-10.1); Chloride 110 mmol/L (98-107); Creatinine, Serum 1.16 mg/dL (0.70-1.30); EST Glomerular Filtration Rate 66 mL/min (>60); Est Glom Filt Rate - Afr Amer 79 mL/min (>60); Estimated Creatinine Clearance 59.43 ml/min; Glucose 230 mg/dL (74-106); Potassium 4.4 mmol/L (3.5-5.1); Sodium Level 139 mmol/L (136-145)
[2020-12-04 13:11] LABS: Platelet Estimate SLT DEC (ADEQ)
--- NOTE | 2020-12-04 14:33 | PCM.HP.STD ---
[facility] - General General Date of Admission: 12/04/20 HPI Narrative CAMDEN HOLDER, is a 70 M with an extensive PMH as outlined who presents with a complaint of weakness, dizzness and shortness of breath. He was admitted weeks ago for colitis and was noted to be anemic. He was on plavix but that was stopped. He came in because of progressive weakness and tiredness. He denied any chest pain, palpitations, dizziness, nausea or vomiting. Review of systems is otherwise negative. He states he had an E[facility] and [facility] which were both negative. He has been referred to urologist physician whom he has seen but no clear cause of his anemia has been elucidated.he denies any hdih-olf-lwcpfcq pain medication intake and denies any melena or coffee-ground emesis or bright red blood rating per rectum or any blood on vomiting. Vitals were BP of 171/66, IN of 68, RR of 18 and temp of 97.8F, with oxygen sats of room air. Labs showed wbc of 6.8, hb of 8 and platelets of 99. Chemistry showed sodium of 139, K of 4.4, Cr of 1.16. he is being admitted to be managed for symptomatic acute on chronic anemia. FOR[facility]LY [facility], LATER [facility] Medical History Atherosclerotic heart disease of [place] coronary artery without angina pectoris Atrial fibrillation CAD (coronary artery disease) Carotid artery disease Cataract Cataract (lens) fragments in eye following cataract surgery, bilateral Chest pain Chronic headaches Chronic neck and back pain Essential hypertension GERD (gastroesophageal reflux disease) HLD (hyperlipidemia) Kidney stones Migraines Neuropathy NSTEMI (non-ST elevated myocardial infarction) Numbness and tingling in right hand Obstructive sleep apnea Pancreatitis Post traumatic stress disorder (PTSD) Restless legs syndrome Severe headache Type 2 diabetes mellitus Home Medications insulin aspart U-100 18 units SUBCUT TIDCM 12/23/16 [History Last Taken 10/13/20] insulin glargine 20 units SUBCUT BID 12/23/16 [History Last Taken 10/13/20] pyridoxine (vitamin B6) 100 mg PO DAILY 12/23/16 [History Last Taken 10/13/20] therapeutic multivitamin 1 ea PO DAILY 12/23/16 [History Last Taken 10/12/20] thiamine HCl (vitamin B1) 100 mg PO DAILY 12/23/16 [History Last Taken 10/13/20] clopidogrel 75 mg PO DAILY #90 tab 03/22/18 [Rx Last Taken 10/12/20] ondansetron HCl 8 mg tablet 8 mg PO TID PRN tab 04/23/18 [History Last Taken Unknown] pregabalin 150 mg capsule 150 mg PO BID cap 04/23/18 [History Last Taken 12/03/20] isosorbide mononitrate 30 mg tablet,extended release 24 hr 30 mg PO DAILY #90 tab 07/13/18 [Rx Last Taken 10/12/20] metoprolol succinate 100 mg tablet,extended release 24 hr 100 mg PO DAILY 07/13/18 [History Last Taken 10/12/20] rosuvastatin 20 mg tablet 20 mg PO DAILY 07/13/18 [History Last Taken 10/12/20] diclofenac sodium 1 % topical gel 2 g TOPICAL DAILY PRN 12/26/18 [History Last Taken Unknown] nitroglycerin 0.4 mg sublingual tablet 0.4 mg SUBLINGUAL Q5-15M PRN 12/26/18 [History Last Taken 1 Month Ago ~09/12/20] omeprazole 40 mg capsule,delayed release 40 mg PO DAILY 12/26/18 [History Last Taken 12/03/20] alirocumab 150 mg SQ .Q2WEEK 12/13/19 [History Last Taken 12/01/20] zolpidem [Ambien] 5 mg PO QHS PRN 10/13/20 [History Last Taken 3 Days Ago ~10/10/20] Creon 3 cap PO TIDCM 10/14/20 [History Last Taken Unknown] acetaminophen 500 mg PO Q4H PRN #1 tab 10/17/20 [Rx Last Taken Unknown] metformin 500 mg PO BID 12/04/20 [History Last Taken 12/03/20] Allergy/AdvReac Type Severity Reaction Status Date / Time oxycodone [From OxyContin] Allergy Shortness Verified 12/04/20 11:26 of breath atorvastatin [From Lipitor] AdvReac muscle Verified 12/04/20 11:26 weakness fish oil AdvReac muscle Verified 12/04/20 11:26 weakness morphine AdvReac MIGRAINE TAO Verified 12/04/20 11:26 Family History (Updated 12/04/20 @ 12:29 by Fadi Reeves) Mother Diabetes Heart disease Cancer Hypertension Father Diabetes Heart disease Hypertension CVA (cerebral vascular accident) Sister Ulcerative colitis Surgical History History of ankle surgery History of cholecystectomy History of facial surgery Hx of CABG (~08/2017) S/P coronary artery stent placement (~07/05/18) Social History housing: house Smoking Status: Never smoker alcohol intake: never substance use type: does not use Vital Signs Vital Signs Vital Signs: 12/04/20 11:23 12/04/20 12:32 Temperature 98.5 F Temperature Source Temporal Pulse Rate 68 Respiratory Rate 20 H Respiratory Pattern Normal Blood Pressure 128/56 H Blood Pressure Mean 80 Pulse Ox 97 Oxygen Delivery Method Room Air Weight Weight: 200 lb Body Mass Index (BMI) 28.7 Physical Exam Const alert and oriented x3 General Appearance: cooperative HEENT normocephalic, head/scalp atraumatic, hearing grossly normal bilaterally and moist oral mucous membranes Eyes PERRL, EOMs intact bilaterally and conjunctivae normal Eyes Narrative: very pale conjuctivae Neck no lymphadenopathy Resp normal respiratory effort, no retractions, no use of accessory muscles and clear to auscultation bilaterally Cardio regular rate, regular rhythm, S1 normal heart sound, S2 normal heart sound and no murmurs GI normal to inspection, nondistended, normoactive bowel sounds, soft to palpation, non-tender and non-distended Extremity normal to inspection, full ROM and no clubbing, cyanosis or edema Peripheral Pulses: Yes pulses 2+ throughout Skin no rashes or lesions noted Neuro oriented x3, CN's II-XII intact bilaterally and moves all extremities Sensorium / Orientation: awake and alert Psych affect normal Results Lab / Micro Data Result Diagrams: 12/04/20 12:26 12/04/20 12:26 Labs: Laboratory Results - last 24 hr 12/04/20 12:26: WBC 6.8, RBC 3.69 L, Hgb 8.0 L, Hct 27.9 L, MCV 75.6 L, MCH 21.7 L, MCHC 28.7 L, RDW Std Deviation 47.8 H, RDW Coeff of Angeline 17.5 H, Plt Count 99 L, Immature Gran % (Auto) 0.400, Neut % (Auto) 56.2, Lymph % (Auto) 33.2, [place] % (Auto) 7.8, Eos % (Auto) 1.8, Baso % (Auto) 0.6, Absolute Neuts (auto) 3.8, Absolute Lymphs (auto) 2.26, Nucleated RBC % 0, Platelet Estimate SLT 12/04/20 12:26: Sodium 139, Potassium 4.4, Chloride 110 H, Carbon Dioxide 24.0, Anion Gap 5, BUN 20 H, Creatinine 1.16, Estim Creat Clear Calc 59.43, Est GFR (MDRD) Af Amer 79, Est GFR (MDRD) Non-Af 66, BUN/Creatinine Ratio 17.2, Glucose 230 H, Calcium 9.5 12/04/20 12:26: Blood Type A POSITIVE, Antibody Screen NEGATIVE Rhythm Strip Rhythm Strip: Sinus Rhythm Rate: 69 Ectopy: None Radiology Impression Chest X-Ray 12/04/20 11:51 IMPRESSION: No focal patchy airspace opacities or effusions Mild congestion/vascular crowding Cardiomegaly with postsurgical change Electronically Signed: Fransisco Reyez, at 12:04 EDT Tel , Service support , Assessment & Plan Assessment/Plan (1) Fatigue: (2) Anemia: PLAN: #Acute on chronic anemia Hb is 8. Baseline Hb is ~ 9 check stool for occult blood transfuse with 2 units of PRBCs trend Hb follow up with hematology on outpatient basis. He has already established care with hematology at the [facility] cause of anemia is not clear. Has had negative EGD and colonoscopy hold plavix and diclofenac continue omeprazole check iron panel, check ferritin. #Hypertension: on metoprolol #Hyperlipidemia: on statin #Type 2 diabetes mellitus on lantus 18 units daily ISS. Accuchecks ACHS also on metformin 500mg bid ISS. Accuchecks ACHS DVT prophylaxis: SCDs. Code status: full code Patient and counseled extensively about different types of CODE STATUS including full code, DNR CCA and DNR CCA. Patient elects to be full code. Total vted-sm-plip time 17 minutes. Charges/Coding Visit Charges Inpatient E&M: 87748 Init Hosp L3 Procedures Hospitalists Procedures: 46759 Advncd Care Plan 30 Min
--- NOTE | 2020-12-04 14:38 | NURSING ---
MED SURG OBS KORAM ANEMIA, TRANSFUSION, CAD HX
--- NOTE | 2020-12-04 15:37 | NURSING ---
ATTEMPTED TO CALL [facility] BED CONTROL, TWICE. NO ANSWER BOTH TIMES. JUST KEPT RINGING TILL IT QUIT
[2020-12-04] MEDS: Acetaminophen 500 MG Tablet 1000 MG PO (15:52)
[2020-12-04] MEDS: Insulin Lispro 100 UNIT/ML INSULN.PEN 18 UNIT SC (18:06)
[2020-12-04] MEDS: Creon 24,000 unit DR Capsule 3 CAP PO (18:06)
[2020-12-04] MEDS: Pantoprazole Sodium 40 MG Tablet PO (18:07)
[2020-12-04] MEDS: Isosorbide Mononitrate 30 MG Tablet PO (18:07)
[2020-12-04] MEDS: Metoprolol(XL)Succ 100 MG Tablet PO (18:07)
[2020-12-04 18:20] LABS: Bedside Glucose 155 mg/dL (70-110)
--- NOTE | 2020-12-04 18:20 | NURSING ---
ATTEMPTED TO CALL [facility] HAR[facility]. NO ANSWER
--- NOTE | 2020-12-04 19:24 | PCS.PANDOC ---
PANDEMIC DOCUMENTATION INITIATED: Date: 12/04/2020 Time: 1630
[2020-12-04] MEDS: HYDROmorphone 1 MG/ML Syringe IV (20:01)
[2020-12-04] MEDS: 0.9% Saline Lock 10 ML Syringe IV (20:04)
[2020-12-04] MEDS: Glucerna Shake 120 ML LIQUID PO (22:08)
[2020-12-04] MEDS: Pregabalin 75 MG Capsule 150 MG PO (22:08)
[2020-12-04] MEDS: Rosuvastatin 20 MG Tablet PO (22:09)
[2020-12-04 22:16] LABS: Bedside Glucose 203 mg/dL (70-110)
[2020-12-05 02:00] VITALS: PULSE 58
[2020-12-05 05:00] VITALS: BP 111/54; PULSE 60; RESP 16; TEMP 36.4; O2SAT 95
[2020-12-05 06:00] VITALS: PULSE 72
[2020-12-05 06:50] LABS: Bedside Glucose 227 mg/dL (70-110)
[2020-12-05 07:13] LABS: Absolute Lymphocyte Count 2.06 X10^3/uL (0.83-4.51); Absolute Neutrophil Count 3.6 X10^3/uL (2.0-7.7); Basophil# 0.04 X10^3/uL; Basophil% 0.6 % (0-1); Eosinophil# 0.21 X10^3/uL; Eosinophils% 3.2 % (0-5); Hematocrit 32.7 % (40-54); Hemoglobin 9.6 g/dL (13.0-16.5); Lymphocyte # 2.06 X10^3/ul (0.83-4.51); Lymphocyte % 31.6 % (19-41); Mean Corp Hgb Conc 29.4 g/dL (32-36); Mean Corpuscular Hgb 22.5 pg (27.0-32.0); Mean Corpuscular Volume 76.6 fL (80-94); Monocyte# 0.57 X10^3/uL; Monocyte% 8.7 % (0-10); NRBC Flagged by Analyzer 0 % (0-5); Neutrophil # 3.61 X10^3/uL (2.7-7.7); Neutrophil % 55.4 % (47-70); POSITIVE COUNT YES; Platelet Count 97 K/mm3 (150-450); RBC Distribution Width CV 17.5 % (11.6-14.6); RBC Distribution Width SD 48.7 fl (35.1-43.9); Red Blood Count 4.27 M/mm3 (4.6-6.2); White Blood Count 6.5 K/mm3 (4.4-11.0)
[2020-12-05 07:27] LABS: Differential Indicated SCAN CRITERIA MET
[2020-12-05 07:33] LABS: Anion Gap 6 (5-15); BUN 22 mg/dL (7-18); BUN/Creat Ratio 17.3 RATIO (10-20); Calcium,Total 8.9 mg/dL (8.5-10.1); Chloride 107 mmol/L (98-107); Creatinine, Serum 1.27 mg/dL (0.70-1.30); EST Glomerular Filtration Rate 59 mL/min (>60); Est Glom Filt Rate - Afr Amer 72 mL/min (>60); Estimated Creatinine Clearance 54.29 ml/min; Glucose 228 mg/dL (74-106); Potassium 4.9 mmol/L (3.5-5.1); Sodium Level 136 mmol/L (136-145)
[2020-12-05 09:21] LABS: Immature Platelet Fraction 9.1 % (1.0-7.9); Platelet Count 103 K/mm3 (150-450); RET-HE 24.9 pg (30-35); Reticulocyte Count 1.87 % (0.5-1.5)
--- NOTE | 2020-12-05 10:35 | DS.PCM_ITS ---
Providers Date of Admission: 12/04/20 Primary Care Physician: Dr. Dima Tavarez MD Reason For Visit: ANEMIA,TRANSFUSION,CAD HX Diagnosis Discharge Diagnosis (1) Fatigue: Status: Acute Code(s): R53.83 - Other fatigue (2) Anemia: Status: Acute Code(s): D64.9 - Anemia, unspecified Medications at Discharge Home Medications insulin aspart U-100 18 units SUBCUT TIDCM 12/23/16 insulin glargine 20 units SUBCUT BID 12/23/16 pyridoxine (vitamin B6) 100 mg PO DAILY 12/23/16 therapeutic multivitamin 1 ea PO DAILY 12/23/16 thiamine HCl (vitamin B1) 100 mg PO DAILY 12/23/16 clopidogrel 75 mg PO DAILY #90 tab 03/22/18 ondansetron HCl 8 mg tablet 8 mg PO TID PRN tab 04/23/18 pregabalin 150 mg capsule 150 mg PO BID cap 04/23/18 isosorbide mononitrate 30 mg tablet,extended release 24 hr 30 mg PO DAILY #90 tab 07/13/18 metoprolol succinate 100 mg tablet,extended release 24 hr 100 mg PO DAILY 07/13/18 rosuvastatin 20 mg tablet 20 mg PO DAILY 07/13/18 diclofenac sodium 1 % topical gel 2 g TOPICAL DAILY PRN 12/26/18 nitroglycerin 0.4 mg sublingual tablet 0.4 mg SUBLINGUAL Q5-15M PRN 12/26/18 omeprazole 40 mg capsule,delayed release 40 mg PO DAILY 12/26/18 alirocumab 150 mg SQ .Q2WEEK 12/13/19 zolpidem [Ambien] 5 mg PO QHS PRN 10/13/20 Creon 3 cap PO TIDCM 10/14/20 acetaminophen 500 mg PO Q4H PRN #1 tab 10/17/20 metformin 500 mg PO BID 12/04/20 Hospital Course Operations None Procedures Blood transfusion (2 units packed red blood cells) Summary of Care Provided Minutes Spent on Discharge: 42 Hospital Course: Mr. Bishop is a 70-year-old male who presented to the emergency department at [facility] on 12/04/2020 with complaints of weakness, dizziness, and shortness of breath. He had been admitted a few weeks ago for colitis and was noted to be anemic at that time. He had been on Plavix but this was discontinued secondary to the noted anemia. He follows at [facility] and an EGD and colonoscopy have been done; both of which were negative. He reported on admission he has been referred to follow-up with hematology but has no appointment set up yet at this time. He is currently not taking any NSAIDs or steroids and denied melena, coffee-ground emesis, or bright red blood per rectum on admission. His vital signs were unremarkable. His hemoglobin was 8.0 which was down from 9.6 when he was here early in October. It appears he had a baseline hemoglobin from 12-12.5 in January 2020. He was transfused 2 units of packed red blood cells given the fact that he was symptomatic with his anemia and his hemoglobin appropriately corrected to 9.6 the following day. Hemoccult stool was ordered but not able to be obtained secondary to patient not having any bowel movements. His anemia appears to be microcytic and he has a chronic thrombocytopenia as well. His thrombocytopenia has been present long-term. We were unfortunately unable to obtain iron studies prior to transfusion and I would recommend these during follow-up as an outpatient. I was able to obtain a reticulocyte count which was mildly elevated but only at 1.87 which I suspect is inappropriately low given his hemoglobin. Haptoglobin is pending but I doubt hemolysis given his normal bilirubin. With regards to his thrombocytopenia, a CT of the abdomen pelvis was done with his October admission and showed cirrhosis but no signs of splenomegaly at that time. I did not follow-up with a repeat imaging at this time. His folate was normal and his B12 is pending at discharge. I doubt though that this is problematic with regards to his anemia given his microcytosis. Given his recent negative EGD and colonoscopy and no current signs of acute bleed I recommend discharge with follow-up with hematology and also consideration from his PCP versus GI for outpatient capsule endoscopy given his persistent anemia. We discussed at detail the importance of following up with hematology at this point. I did give him a referral to hematology here in [place] and he is going to check and see whether or not this would be allowable through the [facility]. He will continue to hold his Plavix. His symptoms overall had abated significantly per his report. He is to follow-up with his PCP in 1 to 2 weeks. Discharge diagnoses: Acute on chronic microcytic anemia Shortness of breath-resolved Lightheadedness-improved Chronic thrombocytopenia CAD PAF Carotid artery disease Cataracts Chronic headaches/migraines Hypertension GERD Hyperlipidemia Nephrolithiasis Diabetic neuropathy DM-2 KAY Chronic pancreatitis Liver cirrhosis PTSD RLS Physical Exam Const alert and oriented x3 Constitutional Narrative: Older white male sitting up in bed, appears comfortable, nontoxic, watching television, appropriately interactive General Appearance: cooperative, comfortable, well kempt and well developed Exam Limitations: no limitations Nutritional Appearance: overweight HEENT normocephalic, head/scalp atraumatic and moist oral mucous membranes Eyes PERRL and EOMs intact bilaterally Eyes Narrative: Pale conjunctiva Neck no lymphadenopathy, supple and no JVD Neck Narrative: Trachea midline Resp normal respiratory effort, no retractions, no use of accessory muscles and clear to auscultation bilaterally Auscultation: Negative for crackles, rales, rhonchi or wheezes Cardio regular rate, regular rhythm, S1 normal heart sound, S2 normal heart sound, no murmurs, no rub, no gallops, no clicks and no JVD GI normal to inspection, nondistended, normoactive bowel sounds, soft to palpation, non-tender and non-distended Extremity normal to inspection, full ROM and no clubbing, cyanosis or edema Skin no rashes or lesions noted, no wounds, skin turgor normal and no jaundice Neuro oriented x3, CN's II-XII intact bilaterally, moves all extremities and no focal motor deficits Sensorium / Orientation: awake, alert, oriented to person, oriented to place and oriented to time Speech: speech normal Psych affect normal Psych Narrative: Very pleasant Weight / BMI Weight Weight: 90.945 kg Body Mass Index (BMI) 28.8 ABG / Lab / Microbiology Data Result Diagrams: 12/05/20 06:20 12/05/20 06:20 Laboratory: Laboratory Results - last 24 hr 12/04/20 12:19: Crossmatch See Detail 12/04/20 12:26: WBC 6.8, RBC 3.69 L, Hgb 8.0 L, Hct 27.9 L, MCV 75.6 L, MCH 21.7 L, MCHC 28.7 L, RDW Std Deviation 47.8 H, RDW Coeff of [place] 17.5 H, Plt Count 99 L, Immature Gran % (Auto) 0.400, Neut % (Auto) 56.2, Lymph % (Auto) 33.2, [place] % (Auto) 7.8, Eos % (Auto) 1.8, Baso % (Auto) 0.6, Absolute Neuts (auto) 3.8, Absolute Lymphs (auto) 2.26, Nucleated RBC % 0, Platelet Estimate SLT 12/04/20 12:26: Sodium 139, Potassium 4.4, Chloride 110 H, Carbon Dioxide 24.0, Anion Gap 5, BUN 20 H, Creatinine 1.16, Estim Creat Clear Calc 59.43, Est GFR (MDRD) Af Amer 79, Est GFR (MDRD) Non-Af 66, BUN/Creatinine Ratio 17.2, Glucose 230 H, Calcium 9.5 12/04/20 12:26: Blood Type A POSITIVE, Antibody Screen NEGATIVE 12/04/20 18:02: POC Glucose 155 H 12/04/20 22:05: POC Glucose 203 H 12/05/20 06:20: WBC 6.5, RBC 4.27 L, Hgb 9.6 L, Hct 32.7 L, MCV 76.6 L, MCH 22.5 L, MCHC 29.4 L, RDW Std Deviation 48.7 H, RDW Coeff of [place] 17.5 H, Plt Count 97 L, Immature Gran % (Auto) 0.500, Neut % (Auto) 55.4, Lymph % (Auto) 31.6, [place] % (Auto) 8.7, Eos % (Auto) 3.2, Baso % (Auto) 0.6, Absolute Neuts (auto) 3.6, Absolute Lymphs (auto) 2.06, Nucleated RBC % 0 12/05/20 06:20: Sodium 136, Potassium 4.9, Chloride 107, Carbon Dioxide 23.0, Anion Gap 6, BUN 22 H, Creatinine 1.27, Estim Creat Clear Calc 54.29, Est GFR (MDRD) Af Amer 72, Est GFR (MDRD) Non-Af 59 L, BUN/Creatinine Ratio 17.3, Glucose 228 H, Calcium 8.9 12/05/20 06:32: POC Glucose 227 H 12/05/20 08:55: Immature Plt Fraction 9.1 H, Retic Count 1.87 H, Immature Retic Fraction 23.60 H, Retic Hgb Equivalent 24.9 L 12/05/20 08:55: Folate 13.80 Radiography Diagnostic Testing: Radiology Impression Chest X-Ray 12/04/20 11:51 IMPRESSION: No focal patchy airspace opacities or effusions Mild congestion/vascular crowding Cardiomegaly with postsurgical change Electronically Signed: Fransisco LeonardDO claire at 12:04 EDT Tel , Service support , D/C Instructions Discharge Diet: Low fat / Low cholesterol and 1800 Calorie Control Diet Meaningful Use Info Meaningful Use Diagnoses (Choose all that apply): None applicable Discharge Plan Admission Admit Date/Time: 12/04/20 17:21 Primary Reason for Your Visit: Anemia/SOB Attending Provider: Jelena Benson Primary Care Provider: Dima Tavarez Instructions Additional Instructions / Restrictions: Follow-up with Dr. Noble versus [facility] faculty member with regards to ongoing anemia after negative EGD and colonoscopy GI may want to consider outpatient capsule endoscopy to address small bowel Continue to hold Plavix Discharge Orders/Prescriptions Prescriptions: Continued ondansetron HCl 8 mg tablet 8 mg PO TID PRN (Reason: nausea vomiting) RF: 0 diclofenac sodium 1 % gel 2 g TOPICAL DAILY PRN (Reason: Pain Or Fever) RF: 0 omeprazole 40 mg capsule,delayed release(DR/EC) 40 mg PO DAILY RF: 0 nitroglycerin 0.4 mg tablet, sublingual 0.4 mg SUBLINGUAL Q5-15M PRN (Reason: cp) RF: 0 thiamine HCl (vitamin B1) 100 MG tablet 100 mg PO DAILY RF: 0 therapeutic multivitamin 1 EACH tablet 1 ea PO DAILY RF: 0 pyridoxine (vitamin B6) 100 MG tablet 100 mg PO DAILY RF: 0 insulin aspart U-100 100 UNITS/ML insulin pen 18 units subcut TIDCM RF: 0 insulin glargine 100 UNITS/ML insulin pen 20 units subcut BID RF: 0 pregabalin 150 mg capsule 150 mg PO BID RF: 0 alirocumab 150 MG/ML pen injector 150 mg SQ .Q2WEEK RF: 0 zolpidem [Ambien] 5 mg Tablet 5 mg PO QHS PRN (Reason: Sleep) RF: 0 Creon 24,000-76,000 -120,000 unit Capsule,Delayed Release(Dr/Ec) 3 cap PO TIDCM RF: 0 acetaminophen 500 mg tablet 500 mg PO Q4H PRN (Reason: fever or pain) Qty: 1 RF: 0 metformin 500 mg Tablet 500 mg PO BID RF: 0 metoprolol succinate 100 mg tablet extended release 24 hr 100 mg PO DAILY RF: 0 rosuvastatin 20 mg tablet 20 mg PO DAILY RF: 0 isosorbide mononitrate 30 mg tablet extended release 24 hr 30 mg PO DAILY Qty: 90 RF: 3 Held clopidogrel 75 MG tablet 75 mg PO DAILY Qty: 90 RF: 3 Hold Instructions: until otherwise noted Referrals / Follow Up: Dima Tavarez MD [Primary Care Provider] - Wiliam Noble DO [STAFF PHYSICIAN] - Within 2 Weeks (for anemia) Disposition Disposition (needs filled in before D/C Order can be placed): Home, Self Care Charges/Coding Visit Charges Inpatient E&M: 69302 Disch Hosp
[2020-12-05] MEDS: Creon 24,000 unit DR Capsule 3 CAP PO (10:42)
[2020-12-05] MEDS: Multivitamins,Therapeutic Tablet 1 TABLET PO (10:42)
[2020-12-05] MEDS: Pantoprazole Sodium 40 MG Tablet PO (10:43)
[2020-12-05] MEDS: Clopidogrel Bisulfate 75 MG Tablet PO (10:43)
[2020-12-05] MEDS: metFORMIN HCl 500 MG Tablet PO (10:43)
[2020-12-05] MEDS: Thiamine Hydrochloride 100 MG Tablet PO (10:43)
[2020-12-05] MEDS: Isosorbide Mononitrate 30 MG Tablet PO (10:44)
[2020-12-05 10:47] VITALS: PULSE 73
[2020-12-05] MEDS: Metoprolol(XL)Succ 100 MG Tablet PO (10:47)
[2020-12-05] MEDS: Insulin Lispro 100 UNIT/ML INSULN.PEN 18 UNIT SC (10:50)
[2020-12-05] MEDS: Pyridoxine HCl 100 MG Tablet PO (10:55)
[2020-12-05] MEDS: Pregabalin 75 MG Capsule 150 MG PO (10:55)
[2020-12-05 10:57] VITALS: BP 144/74; PULSE 73; RESP 16; TEMP 36.4; O2SAT 98
[2020-12-05 11:15] LABS: Differential Comment SCANNED; Platelet Estimate MOD DEC (ADEQ)
[2020-12-05 11:16] LABS: Platelet Morphology LARGE
[2020-12-07 09:24] LABS: Vitamin B12 574 pg/mL (211-911)
--- NOTE | 2020-12-07 12:43 | CASEMGMT ---
RN CM Discharge Follow Up Phone Call: MILTON: Shiloh Strata:3 Call Date: 12/07/20 Discharge Date: 12/05/20 Time of Call:1240 Duration:<1 min Admitting Dx:acute on chronic anemia RN VESTA attempted to complete follow up phone call after recent hospitalization. No answer. Received identified voicemail, left message with call back number.
[2020-12-08 17:07] LABS: Haptoglobin 100 mg/dL (34-355)
== END 2020-12-05 13:20 | disposition home or self-care (01) | DRG 812 ==
LOC: ED 14:35 → MS3 14:58
PROVIDERS: Admitting Provider Student in an Organized Health Care Education/Training Program; Emergency Provider Emergency Medicine; PCP Family Medicine; Visit Provider Internal Medicine
DX: D50.9 Iron deficiency anemia, unspecified (principal); K86.1 Other chronic pancreatitis; D69.6 Thrombocytopenia, unspecified; F43.10 Post-traumatic stress disorder, unspecified; I25.10 Atherosclerotic heart disease of native coronary artery without angina pectoris; I48.0 Paroxysmal atrial fibrillation; G43.909 Migraine, unspecified, not intractable, without status migrainosus; K21.9 Gastro-esophageal reflux disease without esophagitis; E78.5 Hyperlipidemia, unspecified; G47.33 Obstructive sleep apnea (adult) (pediatric); E11.40 Type 2 diabetes mellitus with diabetic neuropathy, unspecified; K74.60 Unspecified cirrhosis of liver; G25.81 Restless legs syndrome; Z95.1 Presence of aortocoronary bypass graft; Z95.5 Presence of coronary angioplasty implant and graft; Z79.4 Long term (current) use of insulin; Z79.899 Other long term (current) drug therapy
CPT/HCPCS: 36415; 71045; 80048; 82607; 82746; 82962; 83010; 85025; 85045; 86850; 86900; 86901; 86920; 93005; 99284; J7040; P9016; A4216

== ENCOUNTER 2020-12-30 12:28 | Emergency (ER) | payer OTHER, MEDICARE, SELFPAY ==
[2018-03-21 13:40] VITALS: BMI 31.6
[2020-12-30 12:29] VITALS: BP 161/61; PULSE 66; RESP 16; TEMP 36.4; O2SAT 99; BMI 28.7
[2020-12-30 13:26] LABS: Absolute Lymphocyte Count 1.96 X10^3/uL (0.83-4.51); Absolute Neutrophil Count 3.6 X10^3/uL (2.0-7.7); Basophil# 0.03 X10^3/uL; Basophil% 0.5 % (0-1); Eosinophil# 0.16 X10^3/uL; Eosinophils% 2.5 % (0-5); Hematocrit 33.7 % (40-54); Lymphocyte # 1.96 X10^3/ul (0.83-4.51); Lymphocyte % 31.2 % (19-41); Mean Corp Hgb Conc 29.7 g/dL (32-36); Mean Corpuscular Hgb 22.5 pg (27.0-32.0); Mean Corpuscular Volume 75.9 fL (80-94); Monocyte# 0.48 X10^3/uL; Monocyte% 7.6 % (0-10); NRBC Flagged by Analyzer 0 % (0-5); Neutrophil # 3.64 X10^3/uL (2.7-7.7); Neutrophil % 57.9 % (47-70); POSITIVE COUNT YES; Platelet Count 79 K/mm3 (150-450); RBC Distribution Width CV 18.6 % (11.6-14.6); RBC Distribution Width SD 50.4 fl (35.1-43.9); Red Blood Count 4.44 M/mm3 (4.6-6.2); White Blood Count 6.3 K/mm3 (4.4-11.0)
[2020-12-30 13:36] LABS: Anion Gap 6 (5-15); BUN 19 mg/dL (7-18); BUN/Creat Ratio 16.1 RATIO (10-20); Calcium,Total 9.5 mg/dL (8.5-10.1); Chloride 106 mmol/L (98-107); Creatinine, Serum 1.18 mg/dL (0.70-1.30); EST Glomerular Filtration Rate 64 mL/min (>60); Est Glom Filt Rate - Afr Amer 78 mL/min (>60); Estimated Creatinine Clearance 58.43 ml/min; Glucose 276 mg/dL (74-106); Potassium 4.5 mmol/L (3.5-5.1); Sodium Level 136 mmol/L (136-145)
--- NOTE | 2020-12-30 13:48 | RAD_ITS ---
STUDY: X-RAY CHEST REASON FOR EXAM: Male, 70 years old. Sob TECHNIQUE: Single AP portable view of the chest. COMPARISON: Comparison is made with prior study 12/04/2020. FINDINGS: Mild degree of vascular congestion. There is no demonstrated pleural abnormality. Sternal cerclage wires and vascular clips are present from a prior sternotomy and coronary artery bypass graft procedure (CABG). Mild cardiomegaly. Normal mediastinum and sade. Normal visualized pulmonary arteries. There is atherosclerotic tortuosity of the aortic arch and descending thoracic aorta. Normal visualized thoracic spine. Normal visualized ribs, clavicles, and shoulders. There is no demonstrated abnormality of the visualized soft tissue structures of the upper abdomen. RAD/Chest 1 View IMPRESSION: Mild degree of vascular congestion and mild cardiomegaly. Electronically Signed: Checo Ball MD at 14:11 EDT , Service support ,
--- NOTE | 2020-12-30 14:14 | EKG12_ITS ---
Test Reason : GEN ILLNESS Blood Pressure : / mmHG Vent. Rate : 068 BPM Atrial Rate : 068 BPM P-R Int : 174 ms QRS Dur : 082 ms QT Int : 408 ms P-R-T Axes : 048 -05 031 degrees QTc Int : 433 ms Normal sinus rhythm Inferior infarct , age undetermined Anterior infarct , age undetermined Abnormal ECG Confirmed by RAY REYNA, BATSHEVA ([id number]), image editor GENEVA VERA ([id number]) on 12/31/2020 10:37:30 AM Referred By: JOLENE Confirmed By:BATSHEVA BELL MD
--- NOTE | 2020-12-30 14:16 | EDS_ITS ---
HPI History of Present Illness Chief Complaint: General Illness Informant: patient Onset/Context/Timing Onset: Weeks (1) Context: Gradual Onset Timing: Waxes and wanes Quality: Weakness, fatigue Location: Generalized Worsened by: Heat Relieved by: Nothing Narrative Narrative: Patient presents with fatigue, weakness, dizziness, and intermittent low blood pressure for the past week. Family states that patient's blood pressure today was 106/46 at home. Family states it was similar last night. Patient states he feels off balance. Patient states this is worse whenever he goes out into the heat. Patient states he feels weak all over. Patient admits to a cough. Patient denies any chest pain or shortness of breath. [facility] Medical History Atherosclerotic heart disease of [place] coronary artery without angina pectoris Atrial fibrillation CAD (coronary artery disease) Carotid artery disease Cataract Cataract (lens) fragments in eye following cataract surgery, bilateral Chest pain Chronic cough Chronic headaches Chronic neck and back pain Essential hypertension Fatigue GERD (gastroesophageal reflux disease) History of coronary artery disease HLD (hyperlipidemia) Kidney stones Migraines Neuropathy Non-smoker NSTEMI (non-ST elevated myocardial infarction) Numbness and tingling in right hand Obstructive sleep apnea Pancreatitis Post traumatic stress disorder (PTSD) Restless legs syndrome Severe headache Type 2 diabetes mellitus Home Medications insulin aspart U-100 18 units SUBCUT TIDCM 12/23/16 [History Last Taken 10/13/20] insulin glargine 20 units SUBCUT BID 12/23/16 [History Last Taken 10/13/20] pyridoxine (vitamin B6) 100 mg PO DAILY 12/23/16 [History Last Taken 10/13/20] therapeutic multivitamin 1 ea PO DAILY 12/23/16 [History Last Taken 10/12/20] thiamine HCl (vitamin B1) 100 mg PO DAILY 12/23/16 [History Last Taken 10/13/20] clopidogrel 75 mg PO DAILY #90 tab 03/22/18 [Rx Last Taken 10/12/20] ondansetron HCl 8 mg tablet 8 mg PO TID PRN tab 04/23/18 [History Last Taken Unknown] pregabalin 150 mg capsule 150 mg PO BID cap 04/23/18 [History Last Taken 12/03/20] isosorbide mononitrate 30 mg tablet,extended release 24 hr 30 mg PO DAILY #90 tab 07/13/18 [Rx Last Taken 10/12/20] metoprolol succinate 100 mg tablet,extended release 24 hr 100 mg PO DAILY 07/13/18 [History Last Taken 10/12/20] rosuvastatin 20 mg tablet 20 mg PO DAILY 07/13/18 [History Last Taken 10/12/20] diclofenac sodium 1 % topical gel 2 g TOPICAL DAILY PRN 12/26/18 [History Last Taken Unknown] nitroglycerin 0.4 mg sublingual tablet 0.4 mg SUBLINGUAL Q5-15M PRN 12/26/18 [History Last Taken 1 Month Ago ~09/12/20] omeprazole 40 mg capsule,delayed release 40 mg PO DAILY 12/26/18 [History Last Taken 12/03/20] alirocumab 150 mg SQ .Q2WEEK 12/13/19 [History Last Taken 12/01/20] zolpidem [Ambien] 5 mg PO QHS PRN 10/13/20 [History Last Taken 3 Days Ago ~10/10/20] Creon 3 cap PO TIDCM 10/14/20 [History Last Taken Unknown] acetaminophen 500 mg PO Q4H PRN #1 tab 10/17/20 [Rx Last Taken Unknown] metformin 500 mg PO BID 12/04/20 [History Last Taken 12/03/20] Allergy/AdvReac Type Severity Reaction Status Date / Time oxycodone [From OxyContin] Allergy Shortness Verified 12/30/20 12:33 of breath atorvastatin [From Lipitor] AdvReac muscle Verified 12/30/20 12:33 weakness fish oil AdvReac muscle Verified 12/30/20 12:33 weakness morphine AdvReac MIGRAINE TAO Verified 12/30/20 12:33 Family History (Updated 12/04/20 @ 12:29 by Fadi Reeves) Mother Diabetes Heart disease Cancer Hypertension Father Diabetes Heart disease Hypertension CVA (cerebral vascular accident) Sister Ulcerative colitis Surgical History History of ankle surgery History of cholecystectomy History of facial surgery Hx of CABG (~08/2017) S/P coronary artery stent placement (~07/05/18) Social History housing: house Smoking Status: Never smoker alcohol intake: never substance use type: does not use ROS ROS ED Constitutional Constitutional ED: Reports chills and subjective; Denies fever(s) Eyes Eyes: Denies blurry vision or change in vision ENT ENT ED: Denies rhinorrhea or sore throat Cardiovascular Cardiovascular: Denies chest pain or palpitations Respiratory/Chest Respiratory/Chest: Reports cough; Denies dyspnea Gastrointestinal Gastrointestinal: Denies nausea or vomiting Genitourinary Genitourinary ED: Denies dysuria or hematuria Musculoskeletal Musculoskeletal: Reports neck pain; Denies back pain Integumentary Denies abscess or rash Neurologic Neurologic: Reports headache(s) and weakness Allergic/Immunologic Allergic/Immunologic ED: Denies mouth swelling or urticaria EXAM Physical Exam Const Vital Signs: 12/30/20 12:29 Temperature 97.5 F L Temperature Source Temporal Pulse Rate 66 Respiratory Rate 16 Blood Pressure 161/61 H Blood Pressure Mean 94 Pulse Ox 99 Oxygen Delivery Method Room Air Positive well nourished and well developed General Appearance ED: well developed HEENT Reports moist mucous membranes Neck supple and no JVD Resp normal respiratory effort and clear to auscultation bilaterally Cardio regular rate and regular rhythm GI normal to inspection, nondistended, normoactive bowel sounds and non-tender Palpation: soft Neuro oriented x3, CN's II-XII intact bilaterally and no sensory deficits noted Sensorium / Orientation: alert Motor Exam: strength 5/5 throughout Psych mental status grossly normal MDM MDM MDM Narrative Medical decision making narrative: EKG was obtained. On my interpretation, it showed a normal sinus rhythm with a rate of 68. ID interval, QRS interval, and QTc intervals were all normal. [place] was normal. There are no acute ST or T wave changes. CBC shows normal white blood cell count. Hemoglobin was 10.0 and hematocrit was 33.7. These are improved from previous results. Basic metabolic profile was within normal limits. High-sensitivity troponin was normal. Portable chest x-ray was obtained. There is 1 view. On my interpretation, there is some mild vascular congestion. There is no acute infiltrate. There is mild cardiomegaly. Bony thorax is normal. Radiologist also interpreted the x- ray and agrees. CT scan of the brain was obtained. There is no acute intracranial abnormality. This was interpreted by the radiologist and reviewed by myself. Patient was feeling better on reevaluation. Patient and family were advised of his findings. Patient was instructed to follow-up with his primary care physician at the [facility] in 3 to 5 days. Patient understood and was agreeable with the plan. All questions were answered. Lab Data Attestation: I reviewed the patient's lab results. Labs: Laboratory Results - last 24 hr 12/30/20 12/30/20 12/30/20 13:15 13:15 13:15 WBC 6.3 RBC 4.44 L Hgb 10.0 L Hct 33.7 L MCV 75.9 L MCH 22.5 L MCHC 29.7 L RDW Std Deviation 50.4 H RDW Coeff of Angeline 18.6 H Plt Count 79 L Immature Gran % (Auto) 0.300 Neut % (Auto) 57.9 Lymph % (Auto) 31.2 Rush % (Auto) 7.6 Eos % (Auto) 2.5 Baso % (Auto) 0.5 Absolute Neuts (auto) 3.6 Absolute Lymphs (auto) 1.96 Nucleated RBC % 0 Sodium 136 Potassium 4.5 Chloride 106 Carbon Dioxide 24.0 Anion Gap 6 BUN 19 H Creatinine 1.18 Estim Creat Clear Calc 58.43 Est GFR (MDRD) Af Amer 78 Est GFR (MDRD) Non-Af 64 BUN/Creatinine Ratio 16.1 Glucose 276 H Calcium 9.5 Troponin I High Sens 15 Radiography Chest X-Ray - ED: 1 View, Read by ED Physician, Read by Radiologist and - (Mild vascular congestion) Diagnostic Testing: Radiology Impression Chest X-Ray 12/30/20 13:48 IMPRESSION: Mild degree of vascular congestion and mild cardiomegaly. Electronically Signed: Checo Ball MD at 14:11 EDT , Service support , Brain CT 12/30/20 16:00 IMPRESSION: Normal unenhanced CT scan of the brain. Electronically Signed: Van Guajardo MD ([place]) at 16:35 EDT , Service support , EKG Initial EKG: Attestation: I personally reviewed and interpreted this EKG as follows: Interpretation: Sinus Rhythm (68) and No Acute Injury Pattern Prior EKG tracings: available for review Prior: Unchanged (12/04/2020) Discharge Plan Triage Chief Complaint: General Illness ED Provider: Fransisco Chowdary Dx/Rx/DC Orders Clinical Impression: Dizziness of unknown cause, Anemia Instructions: ED Anemia, Type Not Specified (Adult), ED Dizziness, Uncertain Cause Prescriptions: No Action ondansetron HCl 8 mg tablet 8 mg PO TID PRN (Reason: nausea vomiting) RF: 0 diclofenac sodium 1 % gel 2 g TOPICAL DAILY PRN (Reason: Pain Or Fever) RF: 0 omeprazole 40 mg capsule,delayed release(DR/EC) 40 mg PO DAILY RF: 0 nitroglycerin 0.4 mg tablet, sublingual 0.4 mg SUBLINGUAL Q5-15M PRN (Reason: cp) RF: 0 thiamine HCl (vitamin B1) 100 MG tablet 100 mg PO DAILY RF: 0 therapeutic multivitamin 1 EACH tablet 1 ea PO DAILY RF: 0 pyridoxine (vitamin B6) 100 MG tablet 100 mg PO DAILY RF: 0 insulin aspart U-100 100 UNITS/ML insulin pen 18 units subcut TIDCM RF: 0 insulin glargine 100 UNITS/ML insulin pen 20 units subcut BID RF: 0 pregabalin 150 mg capsule 150 mg PO BID RF: 0 clopidogrel 75 MG tablet 75 mg PO DAILY Qty: 90 RF: 3 Hold Instructions: until otherwise noted alirocumab 150 MG/ML pen injector 150 mg SQ .Q2WEEK RF: 0 zolpidem [Ambien] 5 mg Tablet 5 mg PO QHS PRN (Reason: Sleep) RF: 0 Creon 24,000-76,000 -120,000 unit Capsule,Delayed Release(Dr/Ec) 3 cap PO TIDCM RF: 0 acetaminophen 500 mg tablet 500 mg PO Q4H PRN (Reason: fever or pain) Qty: 1 RF: 0 metformin 500 mg Tablet 500 mg PO BID RF: 0 metoprolol succinate 100 mg tablet extended release 24 hr 100 mg PO DAILY RF: 0 rosuvastatin 20 mg tablet 20 mg PO DAILY RF: 0 isosorbide mononitrate 30 mg tablet extended release 24 hr 30 mg PO DAILY Qty: 90 RF: 3 Primary Care Provider: Dima Tavarez Referrals: Dima Tavarez MD [Primary Care Provider] - 3-5 Days Disposition Disposition: Home, Self Care
[2020-12-30 15:33] LABS: Troponin-I HS 15 pg/mL (3.0-78.0)
--- NOTE | 2020-12-30 16:00 | CT_ITS ---
STUDY: CT BRAIN WITHOUT CONTRAST REASON FOR EXAM: Male, 70 years old. Weakness RADIATION DOSAGE (If Supplied By Facility): CTDIvol = ( 44.99 ) mGy, DLP = ( 914.22 ) mGycm TECHNIQUE: Transaxial CT imaging of the brain was performed without administration of intravenous contrast material. Individualized dose optimization techniques were used for this CT. COMPARISON: No relevant priors. FINDINGS: Normal soft tissue structures. Normal calvarium. Normal size ventricles and extra-axial spaces for the patient''s age. Normal white matter tracts of the cerebral hemispheres. Normal basal ganglia and thalami. Normal brainstem. Normal cerebellum. There is no intracranial hemorrhage. There are no findings of an acute ischemic infarction. Normal visualized paranasal sinuses. CT/Brain/Head without Contrast IMPRESSION: Normal unenhanced CT scan of the brain. Electronically Signed: Van Guajardo MD ([place]) at 16:35 EDT , Service support ,
[2020-12-30 17:30] VITALS: BP 180/77; PULSE 68; PULSE 69; RESP 17; O2SAT 98
== END 2020-12-30 17:36 | disposition home or self-care (01) ==
PROVIDERS: Emergency Provider Emergency Medicine; PCP Family Medicine
DX: R42 Dizziness and giddiness (principal); D64.9 Anemia, unspecified; I25.10 Atherosclerotic heart disease of native coronary artery without angina pectoris; I48.91 Unspecified atrial fibrillation; I11.9 Hypertensive heart disease without heart failure; I25.2 Old myocardial infarction; E11.40 Type 2 diabetes mellitus with diabetic neuropathy, unspecified; K21.9 Gastro-esophageal reflux disease without esophagitis; E78.5 Hyperlipidemia, unspecified; Z79.4 Long term (current) use of insulin; Z79.02 Long term (current) use of antithrombotics/antiplatelets; Z79.899 Other long term (current) drug therapy
CPT/HCPCS: 70450; 71045; 80048; 84484; 85025; 93005; 99283; A4216

== ENCOUNTER → 2021-08-18 | Outpatient (CLI) | payer MEDICARE, SELFPAY ==
[2018-03-21 13:40] VITALS: BMI 31.6
[2021-08-18 15:10] LABS: Hematocrit 29.5 % (40-54); Hemoglobin 8.3 g/dL (13.0-16.5); Mean Corp Hgb Conc 28.1 g/dL (32-36); Mean Corpuscular Hgb 21.3 pg (27.0-32.0); Mean Corpuscular Volume 75.8 fL (80-94); POSITIVE MORPHOLOGY YES; Platelet Count 151 K/mm3 (150-450); RBC Distribution Width CV 23.2 % (11.6-14.6); RBC Distribution Width SD 63.2 fl (35.1-43.9); Red Blood Count 3.89 M/mm3 (4.6-6.2); White Blood Count 8.2 K/mm3 (4.4-11.0)
[2021-08-18 15:19] LABS: International Normalized Ratio 1.3; Prothrombin Time (Protime)PT. 16.1 SECONDS (11.7-14.9)
[2021-08-18 15:20] LABS: Partial Thromboplast Time 30.2 Seconds (24.1-36.2)
[2021-08-18 15:32] LABS: ALB/GLOB Ratio 0.5 RATIO (0.9-2.4); AST(SGOT) 75 U/L (15-37); Alanine Aminotransfer ALT/SGPT 49 U/L (16-61); Albumin, Serum 2.5 g/dL (3.2-5.0); Alkaline Phosphatase 156 U/L (45-117); Anion Gap 9 (5-15); BUN 20 mg/dL (7-18); BUN/Creat Ratio 13.8 RATIO (10-20); Calcium,Total 8.5 mg/dL (8.5-10.1); Chloride 101 mmol/L (98-107); Creatinine, Serum 1.45 mg/dL (0.70-1.30); EST Glomerular Filtration Rate 51 mL/min (>60); Est Glom Filt Rate - Afr Amer 61 mL/min (>60); Ferritin 21 ng/mL (26-388); Globulin 5.3 g/dL (2.2-4.2); Glucose 208 mg/dL (74-106); Iron 22 ug/dL (65-175); Potassium 4.2 mmol/L (3.5-5.1); Protein, Total 7.8 g/dL (6.4-8.2); Sodium Level 136 mmol/L (136-145)
[2021-08-18 19:05] LABS: Scan Indicated on CBC? Y/N YES- FLAGS NOTED
[2021-08-20 08:42] LABS: AFP, Tumor Marker 2.5 ng/mL (0.0-8.4)
== END | disposition home or self-care (01) ==
LOC: MTLAB 12:34
PROVIDERS: PCP Family Medicine; Referring Provider Internal Medicine Gastroenterology; Visit Provider Internal Medicine Gastroenterology
DX: K74.60 Unspecified cirrhosis of liver (principal)
CPT/HCPCS: 36415; 80053; 82105; 82728; 83540; 85027; 85610; 85730

== ENCOUNTER → 2021-08-23 | Outpatient (CLI) | payer MEDICARE, SELFPAY ==
[2018-03-21 13:40] VITALS: BMI 31.6
--- NOTE | 2021-08-23 07:27 | US_ITS ---
STUDY: ABDOMINAL ULTRASOUND - RIGHT UPPER QUADRANT REASON FOR VISIT: Male, 71 years old CIRRHOSIS -- possible ascites TECHNIQUE: Ultrasound evaluation of the right upper quadrant was performed with real-time and static galarza-scale imaging. TECHNICAL QUALITY: Adequate. COMPARISON: Comparison is made with prior CT scan abdomen and pelvis dated 10/13/2020. FINDINGS: Liver: The liver is enlarged and measures 19.5 cm. There is increased echogenicity consistent with fatty infiltration. The bile ducts are within normal limits. There is hepatic color flow. The direction of portal flow is hepatopetal. There is no demonstrated mass lesion. Gallbladder: The patient is status post cholecystectomy. Common Bile Duct (C.B.D.): The common bile duct measures 8.5 mm. Pancreas: Normal size of the head, body and tail of the pancreas. There is increased echogenicity of the pancreas. There is no demonstrated pancreatic mass or cyst. Right Kidney: Normal size of the right kidney. The right kidney measures 10.3 cm x 5 cm x 4.5 cm. Normal renal cortex. The right cortex measures 1.3 cm. There is no demonstrated renal mass or cyst. There is no right hydronephrosis. [id number] degree of ascites. US/Abdomen Limited IMPRESSION: Hepatomegaly and fatty infiltration of the liver. Status post cholecystectomy. Ascites. Electronically Signed: Checo Ball MD at 10:29 EDT ,
== END | disposition home or self-care (01) ==
LOC: US 07:25
PROVIDERS: PCP Family Medicine; Referring Provider Internal Medicine Gastroenterology; Visit Provider Internal Medicine Gastroenterology
DX: K74.60 Unspecified cirrhosis of liver (principal)
CPT/HCPCS: 76705

== ENCOUNTER 2021-08-25 15:56 | Emergency (ER) | payer OTHER, SELFPAY ==
[2018-03-21 13:40] VITALS: BMI 31.6
[2021-08-25] VITALS (14 sets, daily range): BP systolic 113–171; BP diastolic 55–79; PULSE 79–106; RESP 12–21; TEMP 36.1–36.6; O2SAT 95–99; BMI 26.1
--- NOTE | 2021-08-25 16:12 | EKG12_ITS ---
Test Reason : REPEAT Blood Pressure : / mmHG Vent. Rate : 093 BPM Atrial Rate : 093 BPM P-R Int : 144 ms QRS Dur : 088 ms QT Int : 360 ms P-R-T Axes : 020 -14 020 degrees QTc Int : 447 ms Normal sinus rhythm Anteroseptal infarct , age undetermined Abnormal ECG Confirmed by RAY REYNA, BATSHEVA ([id number]), associate editor GENEVA VERA ([id number]) on 08/27/2021 11:43:52 AM Referred By: DOUG Confirmed By:BATSHEVA BELL MD
--- NOTE | 2021-08-25 16:21 | EDS_ITS ---
HPI History of Present Illness Chief Complaint: Abn Labs Informant: patient Narrative Narrative: Patient presents secondary to low hemoglobin. Patient states he [facility] and they called today stating his hemoglobin was 7.5 or 7.6. They recommended he come in for blood transfusion. He is scheduled to see his orientation and mobility instructor, Dr. Coe, tomorrow. He states he called Dr. Coe's office but because they did not have blood available there he was advised to come to the emergency room. He reports having chronic history of intermittent blood in stools. He thought his last colonoscopy was approximately 6 months ago and done here at the hospital. Last records I can find were from December 2019 where colonoscopy revealed 3 polyps. [facility] Medical History Atherosclerotic heart disease of [place] coronary artery without angina pectoris Atrial fibrillation CAD (coronary artery disease) Carotid artery disease Cataract Cataract (lens) fragments in eye following cataract surgery, bilateral Chest pain Chronic cough Chronic headaches Chronic neck and back pain Essential hypertension Fatigue GERD (gastroesophageal reflux disease) History of coronary artery disease HLD (hyperlipidemia) Kidney stones Migraines Neuropathy Non-smoker NSTEMI (non-ST elevated myocardial infarction) Numbness and tingling in right hand Obstructive sleep apnea Pancreatitis Post traumatic stress disorder (PTSD) Restless legs syndrome Severe headache Type 2 diabetes mellitus Home Medications insulin aspart U-100 18 units SUBCUT TIDCM 12/23/16 [History Last Taken 10/13/20] insulin glargine 38 units SUBCUT BID 12/23/16 [History Last Taken 10/13/20] pyridoxine (vitamin B6) 100 mg PO DAILY 12/23/16 [History Last Taken 10/13/20] therapeutic multivitamin 1 ea PO DAILY 12/23/16 [History Last Taken 10/12/20] thiamine HCl (vitamin B1) 100 mg PO DAILY 12/23/16 [History Last Taken 10/13/20] ondansetron HCl 8 mg tablet 8 mg PO TID PRN tab 04/23/18 [History Last Taken Unknown] pregabalin 150 mg capsule 150 mg PO BID cap 04/23/18 [History Last Taken 12/03/20] isosorbide mononitrate 30 mg tablet,extended release 24 hr 30 mg PO DAILY #90 tab 07/13/18 [Rx Last Taken 10/12/20] metoprolol succinate 100 mg tablet,extended release 24 hr 100 mg PO DAILY 07/13/18 [History Last Taken 10/12/20] rosuvastatin 20 mg tablet 20 mg PO DAILY 07/13/18 [History Last Taken 10/12/20] diclofenac sodium 1 % topical gel 2 g TOPICAL DAILY PRN 12/26/18 [History Last Taken Unknown] nitroglycerin 0.4 mg sublingual tablet 0.4 mg SUBLINGUAL Q5-15M PRN 12/26/18 [History Last Taken 1 Month Ago ~09/12/20] omeprazole 40 mg capsule,delayed release 40 mg PO DAILY 12/26/18 [History Last Taken 12/03/20] alirocumab 150 mg SQ .Q2WEEK 12/13/19 [History Last Taken 12/01/20] zolpidem [Ambien] 5 mg PO QHS PRN 10/13/20 [History Last Taken 3 Days Ago ~10/10/20] Creon 3 cap PO TIDCM 10/14/20 [History Last Taken Unknown] metformin 500 mg PO BID 12/04/20 [History Last Taken 12/03/20] acetaminophen 650 mg PO Q6H PRN 08/25/21 [History Last Taken Unknown] albuterol sulfate [Ventolin HFA] 2 puff INHALATION Q6H PRN 08/25/21 [History Last Taken Unknown] ascorbic acid (vitamin C) 500 mg PO DAILY 08/25/21 [History Last Taken Unknown] benzonatate 200 mg PO TID PRN 08/25/21 [History Last Taken Unknown] carbidopa-levodopa 1 tab PO QHS 08/25/21 [History Last Taken Unknown] clotrimazole 1 applic TOPICAL BID 08/25/21 [History Last Taken Unknown] collagenase clostridium histo. 1 applic TOPICAL DAILY 08/25/21 [History Last Taken Unknown] dicyclomine 20 mg PO TID PRN 08/25/21 [History Last Taken Unknown] empagliflozin 25 mg PO DAILY 08/25/21 [History Last Taken Unknown] ezetimibe 10 mg PO DAILY 08/25/21 [History Last Taken Unknown] fenofibrate nanocrystallized 145 mg PO DAILY 08/25/21 [History Last Taken Unknown] fluticasone furoate 100 mcg INHALATION DAILY 08/25/21 [History Last Taken Unknown] furosemide 40 mg PO DAILY 08/25/21 [History Last Taken Unknown] lactulose 10 g PO BID 08/25/21 [History Last Taken Unknown] lifitegrast 1 drp EACH EYE Q12H 08/25/21 [History Last Taken Unknown] qpdtwn-vynvlktz-mixlxld [Creon] 3 cap PO TID 08/25/21 [History Last Taken Unknown] mesalamine 1.2 g PO DAILY 08/25/21 [History Last Taken Unknown] mometasone 2 puff INHALATION BID 08/25/21 [History Last Taken Unknown] multivitamin 1 tab PO DAILY 08/25/21 [History Last Taken Unknown] pantoprazole 40 mg PO DAILY 08/25/21 [History Last Taken Unknown] spironolactone 50 mg PO DAILY 08/25/21 [History Last Taken Unknown] topiramate 50 mg PO DAILY 08/25/21 [History Last Taken Unknown] Allergy/AdvReac Type Severity Reaction Status Date / Time oxycodone [From OxyContin] Allergy Shortness Verified 08/25/21 15:59 of breath atorvastatin [From Lipitor] AdvReac muscle Verified 08/25/21 15:59 weakness fish oil AdvReac muscle Verified 08/25/21 15:59 weakness morphine AdvReac MIGRAINE TAO Verified 08/25/21 15:59 Family History Mother Diabetes Heart disease Cancer Hypertension Father Diabetes Heart disease Hypertension CVA (cerebral vascular accident) Sister Ulcerative colitis Surgical History History of ankle surgery History of cholecystectomy History of facial surgery Hx of CABG (~08/2017) S/P coronary artery stent placement (~07/05/18) Social History housing: house Smoking Status: Never smoker alcohol intake: never substance use type: does not use ROS ROS ED Constitutional Constitutional ED: Denies chills or fever(s) Eyes Eyes: Denies change in vision ENT ENT ED: Denies sore throat Cardiovascular Cardiovascular: Denies chest pain Respiratory/Chest Respiratory/Chest: Denies cough or dyspnea Gastrointestinal Gastrointestinal: Reports other Details: Intermittent blood in stool chronically. ; Denies abdominal pain, nausea or vomiting Genitourinary Genitourinary ED: Denies dysuria Musculoskeletal Musculoskeletal: Denies back pain or neck pain Integumentary Denies rash Neurologic Neurologic: Reports weakness and other Details: Generalized weakness and fatigue ; Denies headache(s) Allergic/Immunologic Allergic/Immunologic ED: Denies urticaria EXAM Physical Exam Const Vital Signs: 08/25/21 15:57 08/25/21 16:43 08/25/21 18:43 Temperature 97.7 F L Temperature Source Temporal Pulse Rate 106 H 93 Respiratory Rate 18 16 Respiratory Pattern Normal Blood Pressure 113/65 126/55 H Blood Pressure Mean 81 78 Blood Pressure Source Blood Pressure Position Blood Pressure Location Pulse Ox 95 95 Oxygen Delivery Method Room Air Room Air 08/25/21 19:57 08/25/21 20:02 08/25/21 20:17 Temperature 97.5 F L 97.7 F L 97.2 F L Temperature Source Temporal Temporal Temporal Pulse Rate 91 90 90 Respiratory Rate 16 16 16 Respiratory Pattern Blood Pressure 128/66 H 141/64 H 141/64 H Blood Pressure Mean 86 89 89 Blood Pressure Source Monitor Monitor Monitor Blood Pressure Position Semi-Fowlers Semi-Fowlers Semi-Fowlers Blood Pressure Location Right Arm Right Arm Pulse Ox 98 96 97 Oxygen Delivery Method Room Air Room Air Room Air 08/25/21 21:00 08/25/21 21:10 08/25/21 21:14 Temperature 97 F L 97.4 F L 97.6 F L Temperature Source Temporal Temporal Temporal Pulse Rate 86 87 86 Respiratory Rate 17 15 14 Respiratory Pattern Blood Pressure 156/72 H 163/79 H 160/76 H Blood Pressure Mean 100 107 104 Blood Pressure Source Monitor Monitor Blood Pressure Position Semi-Fowlers Semi-Fowlers Blood Pressure Location Right Arm Right Arm Pulse Ox 99 99 97 Oxygen Delivery Method Room Air Room Air Room Air Positive well nourished and well developed General Appearance ED: well developed and pallor HEENT Reports moist mucous membranes Eyes PERRL and EOMs intact bilaterally Neck supple Chest Wall inspection of chest normal and palpation of chest normal Resp normal respiratory effort and clear to auscultation bilaterally Cardio regular rate and regular rhythm GI normal to inspection, nondistended, normoactive bowel sounds and non-tender Palpation: soft Extremity normal to inspection Neuro oriented x3 Sensorium / Orientation: alert Psych mental status grossly normal Skin General Skin Exam: pallor MDM MDM MDM Narrative Medical decision making narrative: Lab work, EKG obtained. Patient typed and crossed for 2 units with order to transfuse. Lab Data Attestation: I reviewed the patient's lab results. Labs: Laboratory Results - last 24 hr 08/25/21 08/25/21 08/25/21 17:15 17:15 17:15 WBC 6.7 RBC 3.50 L Hgb 7.7 L Hct 27.1 L MCV 77.4 L MCH 22.0 L MCHC 28.4 L RDW Std Deviation 62.6 H RDW Coeff of Angeline 22.4 H Plt Count 119 L MPV TNP Immature Gran % (Auto) 0.900 Neut % (Auto) 53.1 Lymph % (Auto) 34.0 [place] % (Auto) 9.5 Eos % (Auto) 1.9 Baso % (Auto) 0.6 Absolute Neuts (auto) 3.6 Absolute Lymphs (auto) 2.28 Nucleated RBC % 0 Differential Comment SCANNED PT 17.0 H INR 1.4 APTT 34.1 Sodium 136 Potassium 4.2 Chloride 104 Carbon Dioxide 25.0 Anion Gap 7 BUN 22 H Creatinine 1.66 H Estim Creat Clear Calc 40.92 Est GFR (MDRD) Af Amer 52 L Est GFR (MDRD) Non-Af 43 L BUN/Creatinine Ratio 13.3 Glucose 337 H Calcium 8.6 Total Bilirubin 0.60 Direct Bilirubin 0.28 AST 52 H ALT 39 Alkaline Phosphatase 132 H Troponin I High Sens 10 Total Protein 7.3 Albumin 2.3 L Globulin 5.0 H Blood Type Antibody Screen Crossmatch 08/25/21 17:15 WBC RBC Hgb Hct MCV MCH MCHC RDW Std Deviation RDW Coeff of Angeline Plt Count MPV Immature Gran % (Auto) Neut % (Auto) Lymph % (Auto) [place] % (Auto) Eos % (Auto) Baso % (Auto) Absolute Neuts (auto) Absolute Lymphs (auto) Nucleated RBC % Differential Comment PT INR APTT Sodium Potassium Chloride Carbon Dioxide Anion Gap BUN Creatinine Estim Creat Clear Calc Est GFR (MDRD) Af Amer Est GFR (MDRD) Non-Af BUN/Creatinine Ratio Glucose Calcium Total Bilirubin Direct Bilirubin AST ALT Alkaline Phosphatase Troponin I High Sens Total Protein Albumin Globulin Blood Type A POSITIVE Antibody Screen NEGATIVE Crossmatch See Detail EKG Initial EKG: Attestation: I personally reviewed and interpreted this EKG as follows: Interpretation: Sinus Rhythm (Sinus at [address] elevation in lead V2. Machine is reading this is acute STEMI. I disagree and believe this is lead placement.) Follow-up EKG: Attestation: I personally reviewed and interpreted this EKG as follows: Interpretation: Sinus Rhythm (Sinus at [address] change.) Treatment and Re-Evaluation Narrative: Patient's hemoglobin is 7.7. Coags unremarkable. Chemistry studies reveal a BUN of 22 and creatinine 1.66. Patient states he has had a colonoscopy performed within the past 6 months and now believes it may have been done at the [facility]. He states he has a chronic slow GI bleed. He does not wish to be admitted for any further work-up. He will receive 2 units of packed RBCs here and be discharged home following the infusion. Return instructions provided. Discharge Plan Triage Chief Complaint: Abn Labs ED Provider: Christine Mcelroy Dx/Rx/DC Orders Clinical Impression: Anemia Instructions: ED Anemia, Type Not Specified (Adult) Prescriptions: No Action ondansetron HCl 8 mg tablet 8 mg PO TID PRN (Reason: nausea vomiting) RF: 0 diclofenac sodium 1 % gel 2 g TOPICAL DAILY PRN (Reason: Pain Or Fever) RF: 0 omeprazole 40 mg capsule,delayed release(DR/EC) 40 mg PO DAILY RF: 0 nitroglycerin 0.4 mg tablet, sublingual 0.4 mg SUBLINGUAL Q5-15M PRN (Reason: cp) RF: 0 thiamine HCl (vitamin B1) 100 MG tablet 100 mg PO DAILY RF: 0 therapeutic multivitamin 1 EACH tablet 1 ea PO DAILY RF: 0 pyridoxine (vitamin B6) 100 MG tablet 100 mg PO DAILY RF: 0 insulin aspart U-100 100 UNITS/ML insulin pen 18 units subcut TIDCM RF: 0 insulin glargine 100 UNITS/ML insulin pen 38 units subcut BID RF: 0 pregabalin 150 mg capsule 150 mg PO BID RF: 0 alirocumab 150 MG/ML pen injector 150 mg SQ .Q2WEEK RF: 0 zolpidem [Ambien] 5 mg Tablet 5 mg PO QHS PRN (Reason: Sleep) RF: 0 Creon 24,000-76,000 -120,000 unit Capsule,Delayed Release(Dr/Ec) 3 cap PO TIDCM RF: 0 metformin 500 mg Tablet 500 mg PO BID RF: 0 multivitamin Tablet 1 tab PO DAILY RF: 0 benzonatate 200 mg Capsule 200 mg PO TID PRN (Reason: Cough) RF: 0 acetaminophen 650 mg Tablet 650 mg PO Q6H PRN (Reason: Pain) RF: 0 ascorbic acid (vitamin C) 500 mg Tablet 500 mg PO DAILY RF: 0 dicyclomine 20 mg Tablet 20 mg PO TID PRN (Reason: abdominal cramps) RF: 0 pantoprazole 40 mg Tablet,Delayed Release (Dr/Ec) 40 mg PO DAILY RF: 0 carbidopa-levodopa 10-100 mg Tablet 1 tab PO QHS RF: 0 furosemide 20 mg Tablet 40 mg PO DAILY RF: 0 collagenase clostridium histo. 250 unit/gram Ointment 1 applic TOPICAL DAILY RF: 0 albuterol sulfate [Ventolin HFA] 90 mcg/actuation Hfa Aerosol Inhaler 2 puff INHALATION Q6H PRN (Reason: Wheezing) RF: 0 clotrimazole 1 % Cream 1 applic TOPICAL BID RF: 0 spironolactone 50 mg Tablet 50 mg PO DAILY RF: 0 ezetimibe 10 mg Tablet 10 mg PO DAILY RF: 0 topiramate 50 mg Tablet 50 mg PO DAILY RF: 0 lactulose 10 gram/15 mL Solution 10 g PO BID RF: 0 fenofibrate nanocrystallized 145 mg Tablet 145 mg PO DAILY RF: 0 mesalamine 1.2 gram Tablet,Delayed Release (Dr/Ec) 1.2 g PO DAILY RF: 0 Creon 24,000-76,000 -120,000 unit Capsule,Delayed Release(Dr/Ec) 3 cap PO TID RF: 0 empagliflozin 25 mg Tablet 25 mg PO DAILY RF: 0 mometasone 200 mcg/actuation Hfa Aerosol Inhaler 2 puff INHALATION BID RF: 0 lifitegrast 5 % [place] 1 drp EACH EYE Q12H RF: 0 fluticasone furoate 50 mcg/actuation Blister With Device 100 mcg INHALATION DAILY RF: 0 metoprolol succinate 100 mg tablet extended release 24 hr 100 mg PO DAILY RF: 0 rosuvastatin 20 mg tablet 20 mg PO DAILY RF: 0 isosorbide mononitrate 30 mg tablet extended release 24 hr 30 mg PO DAILY Qty: 90 RF: 3 Primary Care Provider: Dima Tavarez Referrals: Dima Tavarez MD [Primary Care Provider] - 1-2 Weeks Disposition Disposition: Home, Self Care
--- NOTE | 2021-08-25 16:42 | EKG12_ITS ---
Test Reason : ABNORMAL LABS Blood Pressure : / mmHG Vent. Rate : 094 BPM Atrial Rate : 094 BPM P-R Int : 156 ms QRS Dur : 086 ms QT Int : 348 ms P-R-T Axes : 038 -12 028 degrees QTc Int : 435 ms Normal sinus rhythm Abnormal ECG Confirmed by BATSHEVA BELL MD ([id number]), assignment editor GENEVA VERA ([id number]) on 08/27/2021 11:44:11 AM Referred By: DOUG Confirmed By:BATSHEVA BELL MD
[2021-08-25 17:37] LABS: Absolute Lymphocyte Count 2.28 X10^3/uL (0.83-4.51); Absolute Neutrophil Count 3.6 X10^3/uL (2.0-7.7); Basophil# 0.04 X10^3/uL; Basophil% 0.6 % (0-1); Eosinophil# 0.13 X10^3/uL; Eosinophils% 1.9 % (0-5); Hematocrit 27.1 % (40-54); Hemoglobin 7.7 g/dL (13.0-16.5); Lymphocyte # 2.28 X10^3/ul (0.83-4.51); Mean Corp Hgb Conc 28.4 g/dL (32-36); Mean Corpuscular Volume 77.4 fL (80-94); Monocyte# 0.64 X10^3/uL; Monocyte% 9.5 % (0-10); NRBC Flagged by Analyzer 0 % (0-5); Neutrophil # 3.56 X10^3/uL (2.7-7.7); Neutrophil % 53.1 % (47-70); POSITIVE MORPHOLOGY YES; Platelet Count 119 K/mm3 (150-450); RBC Distribution Width CV 22.4 % (11.6-14.6); RBC Distribution Width SD 62.6 fl (35.1-43.9); White Blood Count 6.7 K/mm3 (4.4-11.0)
[2021-08-25 17:46] LABS: Differential Indicated SCAN CRITERIA MET
[2021-08-25 17:54] LABS: AST(SGOT) 52 U/L (15-37); Alanine Aminotransfer ALT/SGPT 39 U/L (16-61); Albumin, Serum 2.3 g/dL (3.2-5.0); Alkaline Phosphatase 132 U/L (45-117); Anion Gap 7 (5-15); BUN 22 mg/dL (7-18); BUN/Creat Ratio 13.3 RATIO (10-20); Bilirubin, Direct 0.28 mg/dL (0.00-0.30); Calcium,Total 8.6 mg/dL (8.5-10.1); Chloride 104 mmol/L (98-107); Creatinine, Serum 1.66 mg/dL (0.70-1.30); EST Glomerular Filtration Rate 43 mL/min (>60); Est Glom Filt Rate - Afr Amer 52 mL/min (>60); Estimated Creatinine Clearance 40.92 ml/min; Glucose 337 mg/dL (74-106); Potassium 4.2 mmol/L (3.5-5.1); Protein, Total 7.3 g/dL (6.4-8.2); Sodium Level 136 mmol/L (136-145); Troponin-I HS 10 pg/mL (3.0-78.0)
[2021-08-25 17:59] LABS: International Normalized Ratio 1.4; Partial Thromboplast Time 34.1 Seconds (24.1-36.2)
[2021-08-25 18:09] LABS: Differential Comment SCANNED
[2021-08-25] MEDS: Rizatriptan Benzoate 5 MG Tablet PO (19:54)
--- NOTE | 2021-08-25 22:09 | EX.ED.DYSGE1 ---
HPI History of Present Illness Chief Complaint: Abn Labs [facility] Medical History Atherosclerotic heart disease of [place] coronary artery without angina pectoris Atrial fibrillation CAD (coronary artery disease) Carotid artery disease Cataract Cataract (lens) fragments in eye following cataract surgery, bilateral Chest pain Chronic cough Chronic headaches Chronic neck and back pain Essential hypertension Fatigue GERD (gastroesophageal reflux disease) History of coronary artery disease HLD (hyperlipidemia) Kidney stones Migraines Neuropathy Non-smoker NSTEMI (non-ST elevated myocardial infarction) Numbness and tingling in right hand Obstructive sleep apnea Pancreatitis Post traumatic stress disorder (PTSD) Restless legs syndrome Severe headache Type 2 diabetes mellitus Home Medications insulin aspart U-100 18 units SUBCUT TIDCM 12/23/16 [History Last Taken 10/13/20] insulin glargine 38 units SUBCUT BID 12/23/16 [History Last Taken 10/13/20] pyridoxine (vitamin B6) 100 mg PO DAILY 12/23/16 [History Last Taken 10/13/20] therapeutic multivitamin 1 ea PO DAILY 12/23/16 [History Last Taken 10/12/20] thiamine HCl (vitamin B1) 100 mg PO DAILY 12/23/16 [History Last Taken 10/13/20] ondansetron HCl 8 mg tablet 8 mg PO TID PRN tab 04/23/18 [History Last Taken Unknown] pregabalin 150 mg capsule 150 mg PO BID cap 04/23/18 [History Last Taken 12/03/20] isosorbide mononitrate 30 mg tablet,extended release 24 hr 30 mg PO DAILY #90 tab 07/13/18 [Rx Last Taken 10/12/20] metoprolol succinate 100 mg tablet,extended release 24 hr 100 mg PO DAILY 07/13/18 [History Last Taken 10/12/20] rosuvastatin 20 mg tablet 20 mg PO DAILY 07/13/18 [History Last Taken 10/12/20] diclofenac sodium 1 % topical gel 2 g TOPICAL DAILY PRN 12/26/18 [History Last Taken Unknown] nitroglycerin 0.4 mg sublingual tablet 0.4 mg SUBLINGUAL Q5-15M PRN 12/26/18 [History Last Taken 1 Month Ago ~09/12/20] omeprazole 40 mg capsule,delayed release 40 mg PO DAILY 12/26/18 [History Last Taken 12/03/20] alirocumab 150 mg SQ .Q2WEEK 12/13/19 [History Last Taken 12/01/20] zolpidem [Ambien] 5 mg PO QHS PRN 10/13/20 [History Last Taken 3 Days Ago ~10/10/20] Creon 3 cap PO TIDCM 10/14/20 [History Last Taken Unknown] metformin 500 mg PO BID 12/04/20 [History Last Taken 12/03/20] acetaminophen 650 mg PO Q6H PRN 08/25/21 [History Last Taken Unknown] albuterol sulfate [Ventolin HFA] 2 puff INHALATION Q6H PRN 08/25/21 [History Last Taken Unknown] ascorbic acid (vitamin C) 500 mg PO DAILY 08/25/21 [History Last Taken Unknown] benzonatate 200 mg PO TID PRN 08/25/21 [History Last Taken Unknown] carbidopa-levodopa 1 tab PO QHS 08/25/21 [History Last Taken Unknown] clotrimazole 1 applic TOPICAL BID 08/25/21 [History Last Taken Unknown] collagenase clostridium histo. 1 applic TOPICAL DAILY 08/25/21 [History Last Taken Unknown] dicyclomine 20 mg PO TID PRN 08/25/21 [History Last Taken Unknown] empagliflozin 25 mg PO DAILY 08/25/21 [History Last Taken Unknown] ezetimibe 10 mg PO DAILY 08/25/21 [History Last Taken Unknown] fenofibrate nanocrystallized 145 mg PO DAILY 08/25/21 [History Last Taken Unknown] fluticasone furoate 100 mcg INHALATION DAILY 08/25/21 [History Last Taken Unknown] furosemide 40 mg PO DAILY 08/25/21 [History Last Taken Unknown] lactulose 10 g PO BID 08/25/21 [History Last Taken Unknown] lifitegrast 1 drp EACH EYE Q12H 08/25/21 [History Last Taken Unknown] yitpbi-tppyntea-pukhopb [Creon] 3 cap PO TID 08/25/21 [History Last Taken Unknown] mesalamine 1.2 g PO DAILY 08/25/21 [History Last Taken Unknown] mometasone 2 puff INHALATION BID 08/25/21 [History Last Taken Unknown] multivitamin 1 tab PO DAILY 08/25/21 [History Last Taken Unknown] pantoprazole 40 mg PO DAILY 08/25/21 [History Last Taken Unknown] spironolactone 50 mg PO DAILY 08/25/21 [History Last Taken Unknown] topiramate 50 mg PO DAILY 08/25/21 [History Last Taken Unknown] Allergy/AdvReac Type Severity Reaction Status Date / Time oxycodone [From OxyContin] Allergy Shortness Verified 08/25/21 15:59 of breath atorvastatin [From Lipitor] AdvReac muscle Verified 08/25/21 15:59 weakness fish oil AdvReac muscle Verified 08/25/21 15:59 weakness morphine AdvReac MIGRAINE TAO Verified 08/25/21 15:59 Family History Mother Diabetes Heart disease Cancer Hypertension Father Diabetes Heart disease Hypertension CVA (cerebral vascular accident) Sister Ulcerative colitis Surgical History History of ankle surgery History of cholecystectomy History of facial surgery Hx of CABG (~08/2017) S/P coronary artery stent placement (~07/05/18) Social History housing: house Smoking Status: Never smoker alcohol intake: never substance use type: does not use EXAM Physical Exam Const Vital Signs: 08/25/21 15:57 08/25/21 16:43 08/25/21 18:43 Temperature 97.7 F L Temperature Source Temporal Pulse Rate 106 H 93 Respiratory Rate 18 16 Respiratory Pattern Normal Blood Pressure 113/65 126/55 H Blood Pressure Mean 81 78 Blood Pressure Source Blood Pressure Position Blood Pressure Location Pulse Ox 95 95 Oxygen Delivery Method Room Air Room Air 08/25/21 19:57 08/25/21 20:02 08/25/21 20:17 Temperature 97.5 F L 97.7 F L 97.2 F L Temperature Source Temporal Temporal Temporal Pulse Rate 91 90 90 Respiratory Rate 16 16 16 Respiratory Pattern Blood Pressure 128/66 H 141/64 H 141/64 H Blood Pressure Mean 86 89 89 Blood Pressure Source Monitor Monitor Monitor Blood Pressure Position Semi-Fowlers Semi-Fowlers Semi-Fowlers Blood Pressure Location Right Arm Right Arm Pulse Ox 98 96 97 Oxygen Delivery Method Room Air Room Air Room Air 08/25/21 21:00 08/25/21 21:10 08/25/21 21:13 Temperature 97 F L 97.4 F L 97.4 F L Temperature Source Temporal Temporal Temporal Pulse Rate 86 87 80 Respiratory Rate 17 15 16 Respiratory Pattern Blood Pressure 156/72 H 163/79 H 165/77 H Blood Pressure Mean 100 107 106 Blood Pressure Source Monitor Monitor Blood Pressure Position Semi-Fowlers Semi-Fowlers Blood Pressure Location Right Arm Right Arm Pulse Ox 99 99 98 Oxygen Delivery Method Room Air Room Air Room Air 08/25/21 21:14 08/25/21 21:48 08/25/21 22:06 Temperature 97.6 F L 97.6 F L 97.4 F L Temperature Source Temporal Temporal Temporal Pulse Rate 86 79 86 Respiratory Rate 14 12 18 Respiratory Pattern Blood Pressure 160/76 H 165/77 H 161/71 H Blood Pressure Mean 104 106 101 Blood Pressure Source Monitor Monitor Monitor Blood Pressure Position Semi-Fowlers Semi-Fowlers Blood Pressure Location Right Arm Right Arm Pulse Ox 97 98 97 Oxygen Delivery Method Room Air Room Air Room Air MDM MDM Lab Data Labs: Laboratory Results - last 24 hr 08/25/21 08/25/21 08/25/21 17:15 17:15 17:15 WBC 6.7 RBC 3.50 L Hgb 7.7 L Hct 27.1 L MCV 77.4 L MCH 22.0 L MCHC 28.4 L RDW Std Deviation 62.6 H RDW Coeff of Angeline 22.4 H Plt Count 119 L MPV TNP Immature Gran % (Auto) 0.900 Neut % (Auto) 53.1 Lymph % (Auto) 34.0 [place] % (Auto) 9.5 Eos % (Auto) 1.9 Baso % (Auto) 0.6 Absolute Neuts (auto) 3.6 Absolute Lymphs (auto) 2.28 Nucleated RBC % 0 Differential Comment SCANNED PT 17.0 H INR 1.4 APTT 34.1 Sodium 136 Potassium 4.2 Chloride 104 Carbon Dioxide 25.0 Anion Gap 7 BUN 22 H Creatinine 1.66 H Estim Creat Clear Calc 40.92 Est GFR (MDRD) Af Amer 52 L Est GFR (MDRD) Non-Af 43 L BUN/Creatinine Ratio 13.3 Glucose 337 H Calcium 8.6 Total Bilirubin 0.60 Direct Bilirubin 0.28 AST 52 H ALT 39 Alkaline Phosphatase 132 H Troponin I High Sens 10 Total Protein 7.3 Albumin 2.3 L Globulin 5.0 H Blood Type Antibody Screen Crossmatch 08/25/21 17:15 WBC RBC Hgb Hct MCV MCH MCHC RDW Std Deviation RDW Coeff of Angeline Plt Count MPV Immature Gran % (Auto) Neut % (Auto) Lymph % (Auto) [place] % (Auto) Eos % (Auto) Baso % (Auto) Absolute Neuts (auto) Absolute Lymphs (auto) Nucleated RBC % Differential Comment PT INR APTT Sodium Potassium Chloride Carbon Dioxide Anion Gap BUN Creatinine Estim Creat Clear Calc Est GFR (MDRD) Af Amer Est GFR (MDRD) Non-Af BUN/Creatinine Ratio Glucose Calcium Total Bilirubin Direct Bilirubin AST ALT Alkaline Phosphatase Troponin I High Sens Total Protein Albumin Globulin Blood Type A POSITIVE Antibody Screen NEGATIVE Crossmatch See Detail Discharge Plan Triage Chief Complaint: Abn Labs ED Provider: Christine Mcelroy Dx/Rx/DC Orders Clinical Impression: Anemia Instructions: ED Anemia, Type Not Specified (Adult) Prescriptions: No Action ondansetron HCl 8 mg tablet 8 mg PO TID PRN (Reason: nausea vomiting) RF: 0 diclofenac sodium 1 % gel 2 g TOPICAL DAILY PRN (Reason: Pain Or Fever) RF: 0 omeprazole 40 mg capsule,delayed release(DR/EC) 40 mg PO DAILY RF: 0 nitroglycerin 0.4 mg tablet, sublingual 0.4 mg SUBLINGUAL Q5-15M PRN (Reason: cp) RF: 0 thiamine HCl (vitamin B1) 100 MG tablet 100 mg PO DAILY RF: 0 therapeutic multivitamin 1 EACH tablet 1 ea PO DAILY RF: 0 pyridoxine (vitamin B6) 100 MG tablet 100 mg PO DAILY RF: 0 insulin aspart U-100 100 UNITS/ML insulin pen 18 units subcut TIDCM RF: 0 insulin glargine 100 UNITS/ML insulin pen 38 units subcut BID RF: 0 pregabalin 150 mg capsule 150 mg PO BID RF: 0 alirocumab 150 MG/ML pen injector 150 mg SQ .Q2WEEK RF: 0 zolpidem [Ambien] 5 mg Tablet 5 mg PO QHS PRN (Reason: Sleep) RF: 0 Creon 24,000-76,000 -120,000 unit Capsule,Delayed Release(Dr/Ec) 3 cap PO TIDCM RF: 0 metformin 500 mg Tablet 500 mg PO BID RF: 0 multivitamin Tablet 1 tab PO DAILY RF: 0 benzonatate 200 mg Capsule 200 mg PO TID PRN (Reason: Cough) RF: 0 acetaminophen 650 mg Tablet 650 mg PO Q6H PRN (Reason: Pain) RF: 0 ascorbic acid (vitamin C) 500 mg Tablet 500 mg PO DAILY RF: 0 dicyclomine 20 mg Tablet 20 mg PO TID PRN (Reason: abdominal cramps) RF: 0 pantoprazole 40 mg Tablet,Delayed Release (Dr/Ec) 40 mg PO DAILY RF: 0 carbidopa-levodopa 10-100 mg Tablet 1 tab PO QHS RF: 0 furosemide 20 mg Tablet 40 mg PO DAILY RF: 0 collagenase clostridium histo. 250 unit/gram Ointment 1 applic TOPICAL DAILY RF: 0 albuterol sulfate [Ventolin HFA] 90 mcg/actuation Hfa Aerosol Inhaler 2 puff INHALATION Q6H PRN (Reason: Wheezing) RF: 0 clotrimazole 1 % Cream 1 applic TOPICAL BID RF: 0 spironolactone 50 mg Tablet 50 mg PO DAILY RF: 0 ezetimibe 10 mg Tablet 10 mg PO DAILY RF: 0 topiramate 50 mg Tablet 50 mg PO DAILY RF: 0 lactulose 10 gram/15 mL Solution 10 g PO BID RF: 0 fenofibrate nanocrystallized 145 mg Tablet 145 mg PO DAILY RF: 0 mesalamine 1.2 gram Tablet,Delayed Release (Dr/Ec) 1.2 g PO DAILY RF: 0 Creon 24,000-76,000 -120,000 unit Capsule,Delayed Release(Dr/Ec) 3 cap PO TID RF: 0 empagliflozin 25 mg Tablet 25 mg PO DAILY RF: 0 mometasone 200 mcg/actuation Hfa Aerosol Inhaler 2 puff INHALATION BID RF: 0 lifitegrast 5 % [place] 1 drp EACH EYE Q12H RF: 0 fluticasone furoate 50 mcg/actuation Blister With Device 100 mcg INHALATION DAILY RF: 0 metoprolol succinate 100 mg tablet extended release 24 hr 100 mg PO DAILY RF: 0 rosuvastatin 20 mg tablet 20 mg PO DAILY RF: 0 isosorbide mononitrate 30 mg tablet extended release 24 hr 30 mg PO DAILY Qty: 90 RF: 3 Primary Care Provider: Dima Tavarez Referrals: Dima Tavarez MD [Primary Care Provider] - 1-2 Weeks Disposition Disposition: Home, Self Care
--- NOTE | 2021-08-25 22:21 | NURSING ---
blood flushing with saline. denies any complaints at this time
== END 2021-08-25 22:48 | disposition home or self-care (01) ==
PROVIDERS: Emergency Provider Emergency Medicine; PCP Family Medicine; Visit Provider Emergency Medicine
DX: D64.9 Anemia, unspecified (principal); E11.40 Type 2 diabetes mellitus with diabetic neuropathy, unspecified; I48.91 Unspecified atrial fibrillation; I25.10 Atherosclerotic heart disease of native coronary artery without angina pectoris; E78.5 Hyperlipidemia, unspecified; I10 Essential (primary) hypertension; K21.9 Gastro-esophageal reflux disease without esophagitis; I25.2 Old myocardial infarction; G47.33 Obstructive sleep apnea (adult) (pediatric)
CPT/HCPCS: 80048; 80076; 84484; 85025; 85610; 85730; 86850; 86900; 86901; 86920; 86922; 93005; 99285; J7030; P9016; A4216

== ENCOUNTER → 2021-08-25 | Outpatient (CLI) | payer MEDICARE, SELFPAY ==
[2018-03-21 13:40] VITALS: BMI 31.6
--- NOTE | 2021-08-25 12:51 | US_ITS ---
PROCEDURE: Ultrasound guided paracentesis. DATE OF EXAMINATION: 08/25/2021. INDICATION: Male, 71 years old. Ascites. PHYSICIAN: Checo Ball M.D. TECHNIQUE: The risks, benefits, and alternatives to the procedure were explained to the patient. The specific risks of bleeding, infection, and damage to bowel were detailed and accepted. Witnessed informed consent was obtained. The abdomen was ultrasonographically surveyed. An appropriate pocket of fluid was identified at the right lower quadrant. The skin were cleaned and prepped in the usual sterile fashion. Using ultrasound guidance, the peritoneal cavity was accessed with a 5-[place] paracentesis needle/catheter system. The trocar was removed. A total of 1000 ml of velia-colored fluid were removed from the peritoneal cavity. The catheter was removed and a sterile dressing was applied. The procedure was well tolerated. US/Paracentesis with US IMPRESSION: Ultrasound guided paracentesis. Electronically Signed: Checo Ball MD at 13:43 EDT ,
[2021-08-25 13:00] VITALS: BP 128/63; BP 137/70; BP 138/68; PULSE 92; PULSE 97; RESP 16; TEMP 36.3; O2SAT 100; O2SAT 99
[2021-08-25] MEDS: Lidocaine 2% (20 ml mdv) 20 ML Vial INFILT (13:06)
== END | disposition home or self-care (01) ==
LOC: US 12:50
PROVIDERS: PCP Family Medicine; Referring Provider Internal Medicine Gastroenterology; Visit Provider Internal Medicine Gastroenterology
DX: K74.60 Unspecified cirrhosis of liver (principal); R18.8 Other ascites
CPT/HCPCS: 49083

== ENCOUNTER → 2021-09-08 | Outpatient (CLI) | payer MEDICARE, SELFPAY ==
[2018-03-21 13:40] VITALS: BMI 31.6
--- NOTE | 2021-09-08 12:59 | US_ITS ---
PROCEDURE: ULTRASOUND GUIDED PARACENTESIS CLINICAL HISTORY: Male, 71 years old. CIRRHOSIS / ASCITES CONSENT: PROCEDURE: Ultrasound guided paracentesis. DATE OF EXAMINATION: 09/08/2021. INDICATION: Male, 71 years old. Ascites. PHYSICIAN: Randy Newman DO TECHNIQUE: The risks, benefits, and alternatives to the procedure were explained to the patient. The specific risks of bleeding, infection, and damage to bowel were detailed and accepted. Witnessed informed consent was obtained. The abdomen was ultrasonographically surveyed. An appropriate pocket of fluid was identified at the right lower quadrant. The skin were cleaned and prepped in the usual sterile fashion. Using ultrasound guidance, the peritoneal cavity was accessed with a 5-[place] paracentesis needle/catheter system. The trocar was removed. A total of 2300 ml of clear yellow ascites fluid were removed from the peritoneal cavity and discarded. The catheter was removed and a sterile dressing was applied. The procedure was well tolerated. US/Paracentesis with US IMPRESSION: Ultrasound guided therapeutic paracentesis. Electronically Signed: Randy Newman, at 14:44 EDT ,
[2021-09-08 13:24] VITALS: BP 128/59; PULSE 85; RESP 16; TEMP 36.7; O2SAT 100
[2021-09-08 13:25] VITALS: BP 127/57; BP 128/59; PULSE 84; PULSE 85; RESP 16; TEMP 36.7; O2SAT 98; O2SAT 99
[2021-09-08] MEDS: Lidocaine 2% (20 ml mdv) 20 ML Vial INFILT (13:40)
== END | disposition home or self-care (01) ==
LOC: US 12:57
PROVIDERS: PCP Family Medicine; Referring Provider Internal Medicine Gastroenterology; Visit Provider Internal Medicine Gastroenterology
DX: K74.60 Unspecified cirrhosis of liver (principal); R18.8 Other ascites
CPT/HCPCS: 49083

== ENCOUNTER → 2021-09-20 | Outpatient (CLI) | payer MEDICARE, SELFPAY ==
[2018-03-21 13:40] VITALS: BMI 31.6
--- NOTE | 2021-09-20 14:12 | US_ITS ---
PROCEDURE: Ultrasound guided paracentesis. DATE OF EXAMINATION: 09/20/2021. INDICATION: Male, 71 years old. Ascites. PHYSICIAN: Checo Ball M.D. TECHNIQUE: The risks, benefits, and alternatives to the procedure were explained to the patient. The specific risks of bleeding, infection, and damage to bowel were detailed and accepted. Witnessed informed consent was obtained. The abdomen was ultrasonographically surveyed. An appropriate pocket of fluid was identified at the right lower quadrant. The skin were cleaned and prepped in the usual sterile fashion. Using ultrasound guidance, the peritoneal cavity was accessed with a 5-Namibian paracentesis needle/catheter system. The trocar was removed. A total of 1650 ml of velia-colored fluid were removed from the peritoneal cavity. The catheter was removed and a sterile dressing was applied. The procedure was well tolerated. US/Paracentesis with US IMPRESSION: Ultrasound guided paracentesis. Electronically Signed: Checo Ball MD at 15:15 EDT ,
[2021-09-20 14:31] VITALS: BP 119/53; BP 120/48; PULSE 92; PULSE 96; RESP 16; RESP 18; TEMP 36.9; O2SAT 100; O2SAT 97
[2021-09-20] MEDS: Lidocaine 2% (20 ml mdv) 20 ML Vial INFILT (14:35)
== END | disposition home or self-care (01) ==
LOC: US 14:09
PROVIDERS: PCP Family Medicine; Referring Provider Internal Medicine Gastroenterology; Visit Provider Internal Medicine Gastroenterology
DX: K74.60 Unspecified cirrhosis of liver (principal); R18.8 Other ascites
CPT/HCPCS: 49083

== ENCOUNTER → 2021-10-06 | Outpatient (CLI) | payer MEDICARE, SELFPAY ==
[2018-03-21 13:40] VITALS: BMI 31.6
--- NOTE | 2021-10-06 12:07 | US_ITS ---
PROCEDURE: ULTRASOUND GUIDED PARACENTESIS CLINICAL HISTORY: Male, 71 years old. CIRRHOSIS CONSENT: PROCEDURE: Ultrasound guided paracentesis. DATE OF EXAMINATION: 10/06/2021. INDICATION: Male, 71 years old. Ascites. PHYSICIAN: Randy Newman DO TECHNIQUE: The risks, benefits, and alternatives to the procedure were explained to the patient. The specific risks of bleeding, infection, and damage to bowel were detailed and accepted. Witnessed informed consent was obtained. The abdomen was ultrasonographically surveyed. An appropriate pocket of fluid was identified at the right lower quadrant. The skin were cleaned and prepped in the usual sterile fashion. Using ultrasound guidance, the peritoneal cavity was accessed with a 5-[place] Leonean paracentesis needle/catheter system. The trocar was removed. A total of 4700 ml of clear yellow ascites fluid were removed from the peritoneal cavity and discarded. The catheter was removed and a sterile dressing was applied. The procedure was well tolerated. The patient was discharged home in stable condition. US/Paracentesis with US IMPRESSION: Ultrasound guided therapeutic paracentesis. Electronically Signed: Randy Newman, at 15:38 EDT ,
[2021-10-06 12:27] VITALS: BP 105/54; BP 93/35; BP 98/54; PULSE 102; PULSE 95; RESP 18; RESP 20; TEMP 36.6; O2SAT 97; O2SAT 98
[2021-10-06] MEDS: Lidocaine 2% (20 ml mdv) 20 ML Vial INFILT (12:35)
== END | disposition home or self-care (01) ==
LOC: US 12:07
PROVIDERS: PCP Family Medicine; Referring Provider Internal Medicine Gastroenterology; Visit Provider Internal Medicine Gastroenterology
DX: K74.60 Unspecified cirrhosis of liver (principal); R18.8 Other ascites
CPT/HCPCS: 49083

== ENCOUNTER → 2021-10-14 | Outpatient (CLI) | payer MEDICARE, SELFPAY ==
[2018-03-21 13:40] VITALS: BMI 31.6
--- NOTE | 2021-10-14 11:51 | US_ITS ---
PROCEDURE: Ultrasound guided paracentesis. DATE OF EXAMINATION: 10/14/2021. INDICATION: Male, 71 years old. Ascites. PHYSICIAN: Checo Ball M.D. TECHNIQUE: The risks, benefits, and alternatives to the procedure were explained to the patient. The specific risks of bleeding, infection, and damage to bowel were detailed and accepted. Witnessed informed consent was obtained. The abdomen was ultrasonographically surveyed. An appropriate pocket of fluid was identified at the right lower quadrant. The skin were cleaned and prepped in the usual sterile fashion. Using ultrasound guidance, the peritoneal cavity was accessed with a 5-Ethiopian paracentesis needle/catheter system. The trocar was removed. A total of 4100 ml of velia-colored fluid were removed from the peritoneal cavity. The catheter was removed and a sterile dressing was applied. The procedure was well tolerated. US/Paracentesis with US IMPRESSION: Ultrasound guided paracentesis. Electronically Signed: Checo Ball MD at 13:47 EDT ,
[2021-10-14] MEDS: Lidocaine 2% (20 ml mdv) 20 ML Vial INFILT (12:30)
[2021-10-14 12:34] VITALS: BP 106/58; BP 109/57; PULSE 79; PULSE 82; RESP 16; RESP 18; TEMP 36.6; O2SAT 96; O2SAT 99
== END | disposition home or self-care (01) ==
LOC: US 11:48
PROVIDERS: PCP Family Medicine; Referring Provider Internal Medicine Gastroenterology; Visit Provider Internal Medicine Gastroenterology
DX: R18.8 Other ascites (principal)
CPT/HCPCS: 49083

== ENCOUNTER → 2021-10-20 | Outpatient (CLI) | payer MEDICARE, OTHER, SELFPAY ==
[2018-03-21 13:40] VITALS: BMI 31.6
[2021-10-20 17:51] LABS: International Normalized Ratio 1.2
[2021-10-20 17:52] LABS: ALB/GLOB Ratio 0.4 RATIO (0.9-2.4); AST(SGOT) 51 U/L (15-37); Alanine Aminotransfer ALT/SGPT 37 U/L (16-61); Albumin, Serum 2.2 g/dL (3.2-5.0); Alkaline Phosphatase 159 U/L (45-117); Anion Gap 6 (5-15); BUN 29 mg/dL (7-18); BUN/Creat Ratio 21.2 RATIO (10-20); Calcium,Total 8.6 mg/dL (8.5-10.1); Chloride 102 mmol/L (98-107); Creatinine, Serum 1.37 mg/dL (0.70-1.30); EST Glomerular Filtration Rate 54 mL/min (>60); Est Glom Filt Rate - Afr Amer 65 mL/min (>60); Glucose 274 mg/dL (74-106); Iron 18 ug/dL (65-175); Partial Thromboplast Time 31.9 Seconds (24.1-36.2); Protein, Total 7.2 g/dL (6.4-8.2); Sodium Level 133 mmol/L (136-145)
== END | disposition home or self-care (01) ==
PROVIDERS: PCP Family Medicine; Referring Provider Internal Medicine Gastroenterology; Visit Provider Internal Medicine Gastroenterology
DX: K74.60 Unspecified cirrhosis of liver (principal); D64.9 Anemia, unspecified
CPT/HCPCS: 36415; 80053; 83540; 85610; 85730

== ENCOUNTER → 2021-10-25 | Outpatient (CLI) | payer MEDICARE, OTHER, SELFPAY ==
[2018-03-21 13:40] VITALS: BMI 31.6
--- NOTE | 2021-10-25 11:57 | US_ITS ---
PROCEDURE: Ultrasound guided paracentesis. DATE OF EXAMINATION: 10/25/2021. INDICATION: Male, 71 years old. Ascites. PHYSICIAN: Checo Ball M.D. TECHNIQUE: The risks, benefits, and alternatives to the procedure were explained to the patient. The specific risks of bleeding, infection, and damage to bowel were detailed and accepted. Witnessed informed consent was obtained. The abdomen was ultrasonographically surveyed. An appropriate pocket of fluid was identified at the right lower quadrant. The skin were cleaned and prepped in the usual sterile fashion. Using ultrasound guidance, the peritoneal cavity was accessed with a 5-Cuban paracentesis needle/catheter system. The trocar was removed. A total of 3350 ml of velia-colored fluid were removed from the peritoneal cavity. The catheter was removed and a sterile dressing was applied. The procedure was well tolerated. US/Paracentesis with US IMPRESSION: Ultrasound guided paracentesis. Electronically Signed: Checo Ball MD at 13:47 EDT ,
[2021-10-25 12:10] VITALS: BP 111/44; BP 116/52; BP 124/58; BP 131/61; PULSE 78; PULSE 79; PULSE 80; RESP 18; TEMP 36.9; O2SAT 100; O2SAT 98
[2021-10-25] MEDS: Lidocaine 2% (5ml sdv) 5 ML VIAL.MPF 10 ML INFILT (12:20)
== END | disposition home or self-care (01) ==
PROVIDERS: PCP Family Medicine; Referring Provider Internal Medicine Gastroenterology; Visit Provider Internal Medicine Gastroenterology
DX: K74.60 Unspecified cirrhosis of liver (principal); R18.8 Other ascites
CPT/HCPCS: 49083

== ENCOUNTER → 2021-11-03 | Outpatient (CLI) | payer MEDICARE, OTHER, SELFPAY ==
[2018-03-21 13:40] VITALS: BMI 31.6
--- NOTE | 2021-11-03 12:08 | US_ITS ---
PROCEDURE: Ultrasound guided paracentesis. DATE OF EXAMINATION: 11/03/2021. INDICATION: Male, 71 years old. Ascites. PHYSICIAN: Checo Ball M.D. TECHNIQUE: The risks, benefits, and alternatives to the procedure were explained to the patient. The specific risks of bleeding, infection, and damage to bowel were detailed and accepted. Witnessed informed consent was obtained. The abdomen was ultrasonographically surveyed. An appropriate pocket of fluid was identified at the right lower quadrant. The skin were cleaned and prepped in the usual sterile fashion. Using ultrasound guidance, the peritoneal cavity was accessed with a 5-Serbian paracentesis needle/catheter system. The trocar was removed. A total of 2150 ml of velia-colored fluid were removed from the peritoneal cavity. The catheter was removed and a sterile dressing was applied. The procedure was well tolerated. US/Paracentesis with US IMPRESSION: Ultrasound guided paracentesis. Electronically Signed: Checo Ball MD at 13:24 EDT ,
[2021-11-03 12:23] VITALS: BP 107/45; BP 119/60; PULSE 85; RESP 14; RESP 16; TEMP 37.2; O2SAT 94; O2SAT 98
[2021-11-03] MEDS: Lidocaine 2% (5ml sdv) 5 ML VIAL.MPF (12:24)
== END | disposition home or self-care (01) ==
LOC: US 12:06
PROVIDERS: PCP Family Medicine; Referring Provider Internal Medicine Gastroenterology; Visit Provider Internal Medicine Gastroenterology
DX: R18.8 Other ascites (principal)
CPT/HCPCS: 49083

== ENCOUNTER → 2021-11-12 | Outpatient (CLI) | payer MEDICARE, OTHER, SELFPAY ==
[2018-03-21 13:40] VITALS: BMI 31.6
--- NOTE | 2021-11-12 11:55 | US_ITS ---
PROCEDURE: Ultrasound guided paracentesis. DATE OF EXAMINATION: 11/12/2021. INDICATION: Male, 71 years old. Ascites. PHYSICIAN: Checo Ball M.D. TECHNIQUE: The risks, benefits, and alternatives to the procedure were explained to the patient. The specific risks of bleeding, infection, and damage to bowel were detailed and accepted. Witnessed informed consent was obtained. The abdomen was ultrasonographically surveyed. An appropriate pocket of fluid was identified at the right lower quadrant. The skin were cleaned and prepped in the usual sterile fashion. Using ultrasound guidance, the peritoneal cavity was accessed with a 5-Somali paracentesis needle/catheter system. The trocar was removed. A total of 3400 ml of velia-colored fluid were removed from the peritoneal cavity. The catheter was removed and a sterile dressing was applied. The procedure was well tolerated. US/Paracentesis with US IMPRESSION: Ultrasound guided paracentesis. Electronically Signed: Checo Ball MD at 12:52 EDT ,
[2021-11-12] MEDS: Lidocaine 2% (10 ml mdv) 10 ML Vial INFILT (12:10)
[2021-11-12 12:15] VITALS: BP 117/48; BP 121/50; PULSE 101; PULSE 98; RESP 16; RESP 18; O2SAT 100; O2SAT 99
== END | disposition home or self-care (01) ==
PROVIDERS: PCP Family Medicine; Referring Provider Internal Medicine Gastroenterology; Visit Provider Internal Medicine Gastroenterology
DX: K74.60 Unspecified cirrhosis of liver (principal); R18.8 Other ascites
CPT/HCPCS: 49083

== ENCOUNTER → 2021-11-24 | Outpatient (CLI) | payer MEDICARE, OTHER, SELFPAY ==
[2018-03-21 13:40] VITALS: BMI 31.6
--- NOTE | 2021-11-24 12:15 | US_ITS ---
PROCEDURE: Ultrasound guided paracentesis. DATE OF EXAMINATION: 11/24/2021. INDICATION: Male, 71 years old. Ascites. PHYSICIAN: Checo Ball M.D. TECHNIQUE: The risks, benefits, and alternatives to the procedure were explained to the patient. The specific risks of bleeding, infection, and damage to bowel were detailed and accepted. Witnessed informed consent was obtained. The abdomen was ultrasonographically surveyed. An appropriate pocket of fluid was identified at the right lower quadrant. The skin were cleaned and prepped in the usual sterile fashion. Using ultrasound guidance, the peritoneal cavity was accessed with a 5-[place]ymra[place] paracentesis needle/catheter system. The trocar was removed. A total of 3200 ml of velia-colored fluid were removed from the peritoneal cavity. The catheter was removed and a sterile dressing was applied. The procedure was well tolerated. US/Paracentesis with US IMPRESSION: Ultrasound guided paracentesis. Electronically Signed: Checo Ball MD at 13:11 EDT ,
[2021-11-24 12:19] VITALS: BP 116/61; BP 125/49; BP 139/66; PULSE 77; PULSE 82; PULSE 87; RESP 16; TEMP 36.8; O2SAT 100; O2SAT 99
[2021-11-24] MEDS: Lidocaine 2% (10 ml mdv) 10 ML Vial INFILT (12:27)
== END | disposition home or self-care (01) ==
LOC: US 12:13
PROVIDERS: PCP Family Medicine; Referring Provider Internal Medicine Gastroenterology; Visit Provider Internal Medicine Gastroenterology
DX: K74.60 Unspecified cirrhosis of liver (principal); R18.8 Other ascites
CPT/HCPCS: 49083

== ENCOUNTER → 2021-12-03 | Outpatient (CLI) | payer MEDICARE, OTHER, SELFPAY ==
[2018-03-21 13:40] VITALS: BMI 31.6
--- NOTE | 2021-12-03 11:56 | US_ITS ---
PROCEDURE: Ultrasound guided paracentesis. DATE OF EXAMINATION: 12/03/2021. INDICATION: Male, 71 years old. Ascites. PHYSICIAN: hCeco Ball M.D. TECHNIQUE: The risks, benefits, and alternatives to the procedure were explained to the patient. The specific risks of bleeding, infection, and damage to bowel were detailed and accepted. Witnessed informed consent was obtained. The abdomen was ultrasonographically surveyed. An appropriate pocket of fluid was identified at the right lower quadrant. The skin were cleaned and prepped in the usual sterile fashion. Using ultrasound guidance, the peritoneal cavity was accessed with a 5-English paracentesis needle/catheter system. The trocar was removed. A total of 2000 ml of velia-colored fluid were removed from the peritoneal cavity. The catheter was removed and a sterile dressing was applied. The procedure was well tolerated. US/Paracentesis with US IMPRESSION: Ultrasound guided paracentesis. Electronically Signed: Checo Ball MD at 13:00 EDT ,
[2021-12-03 12:12] VITALS: BP 107/50; BP 108/52; BP 110/52; BP 111/49; PULSE 70; PULSE 71; PULSE 72; PULSE 73; RESP 18; TEMP 36.8; O2SAT 100; O2SAT 97; O2SAT 98
[2021-12-03] MEDS: Lidocaine 2% (10 ml mdv) 10 ML Vial INFILT (12:15)
--- NOTE | 2021-12-06 09:48 | NURSING ---
Per pt's pt has had constant RUQ abdominal pain with onset 2 days post procedure. Pt has had minimal relief with prescription pain medication. NEISHA Ruiz advised pt to go to ED to be evaluated for SBP. NEISHA Ruiz called ED to inform them pt will likely be coming in soon to be evaluated.
== END | disposition home or self-care (01) ==
LOC: US 11:55
PROVIDERS: PCP Family Medicine; Referring Provider Internal Medicine Gastroenterology; Visit Provider Internal Medicine Gastroenterology
DX: K74.60 Unspecified cirrhosis of liver (principal); R18.8 Other ascites
CPT/HCPCS: 49083

== ENCOUNTER 2021-12-06 12:03 | Inpatient (IN) | payer OTHER, SELFPAY ==
[2018-03-21 13:40] VITALS: BMI 31.6
[2021-12-06] VITALS (10 sets, daily range): BP systolic 105–149; BP diastolic 38–62; PULSE 83–105; RESP 12–20; TEMP 36.9–37.4; O2SAT 92–100; BMI 24.5
--- NOTE | 2021-12-06 | FLU_PTH ---
PATIENT: CAMDEN HOLDER LOC: [id number] U#:[id number] AGE/SX: 71/M ROOM: PA314 RE12/06/[address]: Dr. Enoch Navarro DO : 1950 BED: 1 DIS: 12/08/2021 SPEC #: [id number] RECD: 12/06/21 14:56 STATUS: REBECCA REQ #: [id number] CORI: 12/06/21 00:[address]: Prabhu Israel DEPT: CYTOLOGY RECD BY: Hernán Bowens ENTERED: 12/07/21 10:50 SP TYPE: Fluid OTHR DR: MD Dr. Patt Damian MD Dr. Rahsaan Friend, [facility] Tissues: PARACENTESIS FLUID Procedures: Special Stain Group II Surgery Specimen Level IV Cytospin Fluid HEADER OPERATION: Ultrasound-guided paracentesis PRE-OP DIAGNOSIS: Ascites TISSUE SUBMITTED: Paracentesis fluid for cytology DIAGNOSIS CYTOLOGY Paracentesis fluid for cytology (cytospin and cell block): Negative for malignant cells. Acute inflammation. See comment. IVETH:armen 12/08/2021 COMMENT Clinical correlation and appropriate follow up are necessary. CYTOLOGY STUDY Slides are reviewed. CYTOLOGY GROSS Received is 100 ml of yellow cloudy fluid labeled with the patient's name and and designated per the requisition as paracentesis. Submitted for cytology preparation including cell block. / armen 12/07/2021 TC:2 CPT: 85832, 45687
--- NOTE | 2021-12-06 12:52 | EDS_ITS ---
HPI History of Present Illness Chief Complaint: Abd Pain Informant: patient and spouse/S.O. Onset/Context/Timing Onset: Yesterday Current Severity: Moderate Maximum Severity: Severe Narrative Narrative: Patient presents secondary to abdominal pain after paracentesis. He gets paracentesis every 9 to 10 days secondary to cirrhosis and liver failure. His last paracentesis was on Monday. He woke yesterday morning with abdominal pain. When the radiology nurse called today to follow-up she recommended he come back in to ensure there is no bacterial infection. Patient denies having fever or chills. No vomiting or diarrhea. [facility] Medical History Atherosclerotic heart disease of [place] coronary artery without angina pectoris Atrial fibrillation CAD (coronary artery disease) Carotid artery disease Cataract Cataract (lens) fragments in eye following cataract surgery, bilateral Chest pain Chronic cough Chronic headaches Chronic neck and back pain Essential hypertension Fatigue GERD (gastroesophageal reflux disease) History of coronary artery disease HLD (hyperlipidemia) Kidney stones Migraines Neuropathy Non-smoker NSTEMI (non-ST elevated myocardial infarction) Numbness and tingling in right hand Obstructive sleep apnea Pancreatitis Post traumatic stress disorder (PTSD) Restless legs syndrome Severe headache Type 2 diabetes mellitus Home Medications insulin aspart U-100 100 unit/mL (3 mL) subcutaneous pen 18 units subcut TIDCM high blood sugar 12/23/16 [History Last Taken 10/13/20] insulin glargine 100 unit/mL (3 mL) subcutaneous pen 38 units subcut BID high blood sugar 12/23/16 [History Last Taken 10/13/20] pyridoxine (vitamin B6) 100 mg tablet 100 mg PO DAILY supplement 12/23/16 [History Last Taken 10/13/20] therapeutic multivitamin 1 ea PO DAILY supplement 12/23/16 [History Last Taken 10/12/20] pregabalin 150 mg capsule 150 mg PO BID nerve pain 04/23/18 [History Last Taken 12/03/20] isosorbide mononitrate 30 mg tablet,extended release 24 hr 30 mg PO DAILY heart #90 tabs 07/13/18 [Rx Last Taken 10/12/20] nitroglycerin 0.4 mg sublingual tablet 0.4 mg sublingual Q5-15M PRN cp 12/26/18 [History Last Taken 1 Month Ago ~09/12/20] alirocumab 150 mg/mL subcutaneous pen injector 150 mg SQ .Q2WEEK 12/13/19 [History Last Taken 12/01/20] zolpidem 5 mg tablet (Ambien) 5 mg PO QHS PRN Sleep 10/13/20 [History Last Taken 3 Days Ago ~10/10/20] izhlpl-iyzeohwf-kcbqdth 24,000-76,000-120,000 unit capsule,delayed rel (Creon) 3 cap PO TIDCM 10/14/20 [History Last Taken Unknown] albuterol sulfate 90 mcg/actuation aerosol inhaler (Ventolin HFA) 2 puff inhalat ion Q6H PRN Wheezing 08/25/21 [History Last Taken Unknown] benzonatate 200 mg capsule 200 mg PO TID PRN Cough 08/25/21 [History Last Taken Unknown] carbidopa 10 mg-levodopa 100 mg tablet 1 tab PO QHS 08/25/21 [History Last Taken Unknown] clotrimazole 1 % topical cream 1 applic topical BID 08/25/21 [History Last Taken Unknown] dicyclomine 20 mg tablet 20 mg PO TID PRN abdominal cramps 08/25/21 [History Last Taken Unknown] empagliflozin 25 mg tablet 25 mg PO DAILY 08/25/21 [History Last Taken Unknown] fluticasone furoate 50 mcg/actuation blister powder for inhalation 100 mcg inhalation DAILY 08/25/21 [History Last Taken Unknown] furosemide 20 mg tablet 40 mg PO DAILY 08/25/21 [History Last Taken Unknown] lactulose 10 gram/15 mL oral solution 10 g PO BID 08/25/21 [History Last Taken Unknown] lifitegrast 5 % eye drops in a dropperette 1 drp EACH EYE Q12H 08/25/21 [History Last Taken Unknown] mesalamine 1.2 gram tablet,delayed release 1.2 g PO DAILY 08/25/21 [History Last Taken Unknown] mometasone 200 mcg/actuation HFA aerosol inhaler 2 puff inhalation BID 08/25/21 [History Last Taken Unknown] multivitamin 1 tab PO DAILY 08/25/21 [History Last Taken Unknown] pantoprazole 40 mg tablet,delayed release 40 mg PO DAILY 08/25/21 [History Last Taken Unknown] spironolactone 50 mg tablet 50 mg PO DAILY 08/25/21 [History Last Taken Unknown] topiramate 50 mg tablet 50 mg PO DAILY 08/25/21 [History Last Taken Unknown] ammonium lactate 12 % lotion 1 applic topical DAILY 12/06/21 [History Last Taken Unknown] bacitracin 500 unit/gram topical ointment 1 applic topical TID 12/06/21 [History Last Taken Unknown] calcium citrate 315 mg-vitamin D3 5 mcg (200 unit) tablet (Calcium Citrate + D) 1 tab PO DAILY 12/06/21 [History Last Taken Unknown] carboxymethylcellulose sodium 0.5 % eye drops 1 drp EACH EYE TID 12/06/21 [History Last Taken Unknown] carboxymethylcellulose sodium 1 % eye drops 1 drp EACH EYE BID 12/06/21 [History Last Taken Unknown] cholecalciferol (vitamin D3) 50 mcg (2,000 unit) chewable tablet 50 mcg PO DAILY 12/06/21 [History Last Taken Unknown] duloxetine 20 mg capsule,delayed release 20 mg PO DAILY 12/06/21 [History Last Taken Unknown] ferrous sulfate 325 mg (65 mg iron) tablet 325 mg PO DAILY 12/06/21 [History Last Taken Unknown] glucose 4 gram chewable tablet 4 g PO Q15M PRN Hypoglycemia 12/06/21 [History Last Taken Unknown] isosorbide mononitrate 30 mg tablet,extended release 24 hr 30 mg PO DAILY 12/06/21 [History Last Taken Unknown] lanolin alcohols-mineral oil-w.petrolatum-ceresin topical cream (Eucerin topical cream) 1 applic topical DAILY PRN Dry Skin 12/06/21 [History Last Taken Unknown] lidocaine 4 % topical cream 1 applic topical TID 12/06/21 [History Last Taken Unknown] rifaximin 550 mg tablet (Xifaxan) 550 mg PO BID 12/06/21 [History Last Taken U nknown] Allergy/AdvReac Type Severity Reaction Status Date / Time oxycodone [From OxyContin] Allergy Shortness Verified 12/06/21 12:24 of breath atorvastatin [From Lipitor] AdvReac muscle Verified 12/06/21 12:24 weakness fish oil AdvReac muscle Verified 12/06/21 12:24 weakness morphine AdvReac MIGRAINE TAO Verified 12/06/21 12:24 Family History Mother Diabetes Heart disease Cancer Hypertension Father Diabetes Heart disease Hypertension CVA (cerebral vascular accident) Sister Ulcerative colitis Surgical History History of ankle surgery History of cholecystectomy History of facial surgery Hx of CABG (~08/2017) S/P coronary artery stent placement (~07/05/18) Social History housing: house Smoking Status: Never smoker alcohol intake: never substance use type: does not use ROS ROS ED Constitutional Constitutional ED: Denies chills or fever(s) Eyes Eyes: Denies change in vision or discharge from eye(s) ENT ENT ED: Denies discharge from eye(s), rhinorrhea or sore throat Cardiovascular Cardiovascular: Denies chest pain or palpitations Respiratory/Chest Respiratory/Chest: Denies cough or dyspnea Gastrointestinal Gastrointestinal: Reports abdominal pain; Denies diarrhea, nausea or vomiting Genitourinary Genitourinary ED: Denies difficulty urinating or dysuria Musculoskeletal Musculoskeletal: Denies back pain or extremity pain Integumentary Denies Abrasions or rash Neurologic Neurologic: Denies headache(s) or weakness Allergic/Immunologic Allergic/Immunologic ED: Denies lip swelling or urticaria EXAM Physical Exam Const Vital Signs: 12/06/21 12:04 12/06/21 12:19 12/06/21 12:20 Temperature 98.6 F 98.5 F 98.5 F Temperature Source Temporal Temporal Temporal Pulse Rate 105 H 102 H 104 H Pulse Rate [1 (Initial Baseline)] Pulse Rate [2] Pulse Rate [3] Respiratory Rate 16 19 H 19 H Respiratory Rate [1 (Initial Baseline)] Respiratory Rate [2] Respiratory Rate [3] Blood Pressure 149/56 H 143/50 H 143/50 H Blood Pressure [1 (Initial Baseline)] Blood Pressure [2] Blood Pressure [3] Blood Pressure Mean 87 81 81 Pulse Ox 100 98 98 Oxygen Delivery Method Room Air Room Air Room Air Oxygen Delivery Method [1 (Initial Baseline)] Oxygen Delivery Method [2] Oxygen Delivery Method [3] 12/06/21 13:52 12/06/21 13:59 12/06/21 15:44 Temperature 99.0 F 98.5 F Temperature Source Temporal Temporal Pulse Rate 83 91 Pulse Rate [1 (Initial Baseline)] 88 Pulse Rate [2] 95 Pulse Rate [3] 95 Respiratory Rate 16 16 Respiratory Rate [1 (Initial Baseline)] 16 Respiratory Rate [2] 15 Respiratory Rate [3] 20 H Blood Pressure 105/48 L 118/50 L Blood Pressure [1 (Initial Baseline)] 108/47 L Blood Pressure [2] 109/45 L Blood Pressure [3] 106/38 L Blood Pressure Mean 67 72 Pulse Ox 100 100 Oxygen Delivery Method Room Air Room Air Oxygen Delivery Method [1 (Initial Baseline)] Room Air Oxygen Delivery Method [2] Room Air Oxygen Delivery Method [3] Room Air 12/06/21 16:04 12/06/21 16:04 Temperature 98.5 F 98.5 F Temperature Source Temporal Temporal Pulse Rate 93 93 Pulse Rate [1 (Initial Baseline)] Pulse Rate [2] Pulse Rate [3] Respiratory Rate 20 H 20 H Respiratory Rate [1 (Initial Baseline)] Respiratory Rate [2] Respiratory Rate [3] Blood Pressure 108/49 L 108/49 L Blood Pressure [1 (Initial Baseline)] Blood Pressure [2] Blood Pressure [3] Blood Pressure Mean 68 68 Pulse Ox 92 92 Oxygen Delivery Method Room Air Room Air Oxygen Delivery Method [1 (Initial Baseline)] Oxygen Delivery Method [2] Oxygen Delivery Method [3] Positive well nourished and well developed General Appearance ED: well developed HEENT Reports normocephalic and head/scalp atraumatic Eyes PERRL and EOMs intact bilaterally Neck supple Chest Wall inspection of chest normal and palpation of chest normal Resp normal respiratory effort and clear to auscultation bilaterally Cardio regular rhythm Rate: tachycardic GI Palpation: soft and tender RLQ and suprapubic Extremity normal to inspection Neuro oriented x3 and no sensory deficits noted Sensorium / Orientation: alert Motor Exam: strength 5/5 throughout Psych mental status grossly normal Skin no rashes or lesions noted MDM MDM MDM Narrative Medical decision making narrative: Lab work obtained including CT scan of the abdomen pelvis. I spoke with the radiology nurse shortly after I saw the patient. They will take the patient over for paracentesis to obtain fluid to send for testing. He was given a dose of Dilaudid and Zofran for pain control. Lab Data Attestation: I reviewed the patient's lab results. Labs: Laboratory Results - last 24 hr 12/06/21 12/06/21 12/06/21 13:40 13:40 13:40 WBC 13.1 H RBC 4.33 L Hgb 11.1 L Hct 36.6 L MCV 84.5 MCH 25.6 L MCHC 30.3 L RDW Std Deviation 72.2 H RDW Coeff of Angeline 23.6 H Plt Count 123 L MPV 10.8 Immature Gran % (Auto) 0.900 Neut % (Auto) 84.2 H Lymph % (Auto) 10.2 L [place] % (Auto) 4.2 Eos % (Auto) 0.1 Baso % (Auto) 0.4 Absolute Neuts (auto) 11.0 H Absolute Lymphs (auto) 1.33 Nucleated RBC % 0 Anisocytosis 1+ PT 17.6 H INR 1.5 APTT 32.0 Sodium 127 L Potassium 4.7 Chloride 97 L Carbon Dioxide 22.0 Anion Gap 8 BUN 19 H Creatinine 1.37 H Estim Creat Clear Calc 49.58 Est GFR (MDRD) Af Amer 65 Est GFR (MDRD) Non-Af 54 L BUN/Creatinine Ratio 13.9 Glucose 364 H Calcium 8.1 L Total Bilirubin 2.10 H Direct Bilirubin 1.13 H AST 92 H ALT 49 Alkaline Phosphatase 243 H Total Protein 7.4 Albumin 1.9 L Globulin 5.5 H Lipase 52 L Fluid Source Fluid Color Fluid Appearance Fluid WBC Fluid RBC Fluid Tot Cell Count Fld Polynuclear WBCs # Fld Polynuclear WBCs % Fluid Mononuclear WBCs Fld Mononuclear WBCs % Fluid Neutrophils Fluid Monocytes Fl Pathologist Comment Fluid Glucose Fluid Total Protein Fluid LDH Fluid Comment 2 12/06/21 12/06/21 14:11 14:11 WBC RBC Hgb Hct MCV MCH MCHC RDW Std Deviation RDW Coeff of Angeline Plt Count MPV Immature Gran % (Auto) Neut % (Auto) Lymph % (Auto) [place] % (Auto) Eos % (Auto) Baso % (Auto) Absolute Neuts (auto) Absolute Lymphs (auto) Nucleated RBC % Anisocytosis PT INR APTT Sodium Potassium Chloride Carbon Dioxide Anion Gap BUN Creatinine Estim Creat Clear Calc Est GFR (MDRD) Af Amer Est GFR (MDRD) Non-Af BUN/Creatinine Ratio Glucose Calcium Total Bilirubin Direct Bilirubin AST ALT Alkaline Phosphatase Total Protein Albumin Globulin Lipase Fluid Source OTHER Fluid Color YELLOW Fluid Appearance CLEAR Fluid WBC 2.351 Fluid RBC 277 Fluid Tot Cell Count 2.406 Fld Polynuclear WBCs # 1.835 Fld Polynuclear WBCs % 78.0 Fluid Mononuclear WBCs 0.516 Fld Mononuclear WBCs % 22.0 Fluid Neutrophils 84 Fluid Monocytes 16 Fl Pathologist Comment May follow Fluid Glucose 325 H Fluid Total Protein 1.0 Fluid LDH 57 Fluid Comment 2 SEE COMMENT Radiography Diagnostic Testing: Clinical Impression(s) from Imaging Studies Paracentesis Ultrasound 12/06/21 13:01 IMPRESSION: Ultrasound guided paracentesis. Electronically Signed: Checo Ball MD at 15:10 EDT , Abdomen/Pelvis CT 12/06/21 15:22 IMPRESSION: Mild degree residual ascites. Thickening of the cecum. Focal colitis should be ruled out. Electronically Signed: Checo Ball MD at 15:43 EDT , Treatment and Re-Evaluation Narrative: Lab work reveals an elevated white count at 13.1. 84% neutrophils noted. Coags unremarkable. Chemistry studies reveal a BUN of 19 and creatinine 1.37. Glucose is 364. LFTs reveal chronic changes consistent with his prior values. Ultrasound guided paracentesis was performed with 3400 cc of cloudy fluid drained. 2300 white cells are noted along with 277 red cells. Left shift is noted. In light of this patient is given a dose of Zosyn. CT scan of the abdomen pelvis has been obtained to ensure no bleeding from prior paracentesis. There is a mild degree of residual ascites with thickening of the cecum. I will speak with hospitalist regarding admission for IV antibiotics and further treatment. Discharge Plan Triage Chief Complaint: Abd Pain ED Provider: Christine Mcelroy Dx/Rx/DC Orders Clinical Impression: Peritonitis Prescriptions: No Action nitroglycerin 0.4 mg tablet, sublingual 0.4 mg SUBLINGUAL Q5-15M PRN (Reason: cp) therapeutic multivitamin 1 EACH tablet 1 ea PO DAILY Label Comments: supplement pyridoxine (vitamin B6) 100 MG tablet 100 mg PO DAILY Label Comments: supplement insulin aspart U-100 100 UNITS/ML insulin pen 18 units subcut TIDCM Label Comments: diabetes insulin glargine 100 UNITS/ML insulin pen 38 units subcut BID Label Comments: diabetes pregabalin 150 mg capsule 150 mg PO BID Label Comments: neuropathy alirocumab 150 MG/ML pen injector 150 mg SQ .Q2WEEK zolpidem [Ambien] 5 mg Tablet 5 mg PO QHS PRN (Reason: Sleep) Creon 24,000-76,000 -120,000 unit Capsule,Delayed Release(Dr/Ec) 3 cap PO TIDCM multivitamin Tablet 1 tab PO DAILY benzonatate 200 mg Capsule 200 mg PO TID PRN (Reason: Cough) dicyclomine 20 mg Tablet 20 mg PO TID PRN (Reason: abdominal cramps) pantoprazole 40 mg Tablet,Delayed Release (Dr/Ec) 40 mg PO DAILY carbidopa-levodopa 10-100 mg Tablet 1 tab PO QHS furosemide 20 mg Tablet 40 mg PO DAILY albuterol sulfate [Ventolin HFA] 90 mcg/actuation Hfa Aerosol Inhaler 2 puff INHALATION Q6H PRN (Reason: Wheezing) clotrimazole 1 % Cream 1 applic TOPICAL BID spironolactone 50 mg Tablet 50 mg PO DAILY topiramate 50 mg Tablet 50 mg PO DAILY lactulose 10 gram/15 mL Solution 10 g PO BID mesalamine 1.2 gram Tablet,Delayed Release (Dr/Ec) 1.2 g PO DAILY empagliflozin 25 mg Tablet 25 mg PO DAILY mometasone 200 mcg/actuation Hfa Aerosol Inhaler 2 puff INHALATION BID lifitegrast 5 % Dropperette 1 drp EACH EYE Q12H fluticasone furoate 50 mcg/actuation Blister With Device 100 mcg INHALATION DAILY ammonium lactate 12 % Lotion 1 applic TOPICAL DAILY bacitracin 500 unit/gram Ointment 1 applic TOPICAL TID carboxymethylcellulose sodium 0.5 % Drops 1 drp EACH EYE TID calcium citrate-vitamin D3 [Calcium Citrate + D] 315 mg-5 mcg (200 unit) Tablet 1 tab PO DAILY Xifaxan 550 mg Tablet 550 mg PO BID cholecalciferol (vitamin D3) 50 mcg (2,000 unit) Tablet,Chewable 50 mcg PO DAILY carboxymethylcellulose sodium 1 % Drops 1 drp EACH EYE BID isosorbide mononitrate 30 mg Tablet Extended Release 24 Hr 30 mg PO DAILY lidocaine 4 % Cream 1 applic TOPICAL TID ferrous sulfate 325 mg (65 mg iron) Tablet 325 mg PO DAILY glucose 4 gram Tablet,Chewable 4 g PO Q15M PRN (Reason: Hypoglycemia) Rx Instructions: until symptoms of low blood sugar are controlled duloxetine 20 mg Capsule,Delayed Release(Dr/Ec) 20 mg PO DAILY Eucerin Cream 1 applic TOPICAL DAILY PRN (Reason: Dry Skin) isosorbide mononitrate 30 mg tablet extended release 24 hr 30 mg PO DAILY Qty: 90 3RF Primary Care Provider: Dima Tavarez Referrals: Dima Tavarez MD [Primary Care Provider] - Disposition Disposition: Acute Care Hospital [facility]
--- NOTE | 2021-12-06 13:01 | US_ITS ---
PROCEDURE: Ultrasound guided paracentesis. DATE OF EXAMINATION: 12/06/2021. INDICATION: Male, 71 years old. Ascites. PHYSICIAN: Checo Ball M.D. TECHNIQUE: The risks, benefits, and alternatives to the procedure were explained to the patient. The specific risks of bleeding, infection, and damage to bowel were detailed and accepted. Witnessed informed consent was obtained. The abdomen was ultrasonographically surveyed. An appropriate pocket of fluid was identified at the right lower quadrant. The skin were cleaned and prepped in the usual sterile fashion. Using ultrasound guidance, the peritoneal cavity was accessed with a 5-[place] paracentesis needle/catheter system. The trocar was removed. A total of 3400 ml of cloudy velia-colored fluid were removed from the peritoneal cavity. A 100 mL sample was sent to the laboratory for analysis. The catheter was removed and a sterile dressing was applied. The procedure was well tolerated. US/Paracentesis with US IMPRESSION: Ultrasound guided paracentesis. Electronically Signed: Checo Ball MD at 15:10 EDT ,
[2021-12-06] MEDS: Ondansetron 4 MG/2 ML Vial IV (13:46)
[2021-12-06] MEDS: HYDROmorphone 1 MG/ML Syringe 0.5 MG IV (13:47)
[2021-12-06] MEDS: 0.9% Normal Saline 1,000 ML 150 ML IV (13:47)
[2021-12-06 13:55] LABS: Absolute Lymphocyte Count 1.33 X10^3/uL (0.83-4.51); Basophil# 0.05 X10^3/uL; Basophil% 0.4 % (0-1); Eosinophil# 0.01 X10^3/uL; Eosinophils% 0.1 % (0-5); Hematocrit 36.6 % (40-54); Hemoglobin 11.1 g/dL (13.0-16.5); Lymphocyte # 1.33 X10^3/ul (0.83-4.51); Lymphocyte % 10.2 % (19-41); Mean Corp Hgb Conc 30.3 g/dL (32-36); Mean Corpuscular Hgb 25.6 pg (27.0-32.0); Mean Corpuscular Volume 84.5 fL (80-94); Mean Platelet Vol. 10.8 fl (6.2-12.0); Monocyte# 0.55 X10^3/uL; Monocyte% 4.2 % (0-10); NRBC Flagged by Analyzer 0 % (0-5); Neutrophil # 11.01 X10^3/uL (2.7-7.7); Neutrophil % 84.2 % (47-70); POSITIVE MORPHOLOGY YES; Platelet Count 123 K/mm3 (150-450); RBC Distribution Width CV 23.6 % (11.6-14.6); RBC Distribution Width SD 72.2 fl (35.1-43.9); Red Blood Count 4.33 M/mm3 (4.6-6.2); White Blood Count 13.1 K/mm3 (4.4-11.0)
[2021-12-06 13:56] LABS: Differential Indicated SCAN CRITERIA MET
[2021-12-06 13:59] LABS: International Normalized Ratio 1.5; Prothrombin Time (Protime)PT. 17.6 SECONDS (11.7-14.9)
[2021-12-06] MEDS: Lidocaine 2% (10 ml mdv) 10 ML Vial INFILT (14:10)
[2021-12-06 14:21] LABS: AST(SGOT) 92 U/L (15-37); Alanine Aminotransfer ALT/SGPT 49 U/L (16-61); Albumin, Serum 1.9 g/dL (3.2-5.0); Alkaline Phosphatase 243 U/L (45-117); Anion Gap 8 (5-15); BUN 19 mg/dL (7-18); BUN/Creat Ratio 13.9 RATIO (10-20); Bilirubin, Direct 1.13 mg/dL (0.00-0.30); Calcium,Total 8.1 mg/dL (8.5-10.1); Chloride 97 mmol/L (98-107); Creatinine, Serum 1.37 mg/dL (0.70-1.30); EST Glomerular Filtration Rate 54 mL/min (>60); Est Glom Filt Rate - Afr Amer 65 mL/min (>60); Estimated Creatinine Clearance 49.58 ml/min; Globulin 5.5 g/dL (2.2-4.2); Glucose 364 mg/dL (74-106); Lipase 52 U/L (73-393); Potassium 4.7 mmol/L (3.5-5.1); Protein, Total 7.4 g/dL (6.4-8.2); Sodium Level 127 mmol/L (136-145)
[2021-12-06 14:24] LABS: Anisocytosis 1+
[2021-12-06 15:13] LABS: Body Fluid Mononuclear WBC # 0.516 10^3/uL; Body Fluid Polynuclear WBC # 1.835 10^3/uL; Body Fluid Total Cells Counted 2.406 10^3/ul; White Blood Count/Body Fluid 2.351 10^3/uL
[2021-12-06 15:15] LABS: Appearance/Body Fluid CLEAR; Color/Body Fluid YELLOW; Source- Body Fluid OTHER
--- NOTE | 2021-12-06 15:22 | CT_ITS ---
STUDY: CT ABDOMEN AND PELVIS WITH CONTRAST REASON FOR EXAM: Male, 71 years old. Abd pain post paracentesis RADIATION DOSAGE (If Supplied By Facility): CTDIvol = ( 13.79 ) mGy, DLP = ( 959.93 ) mGycm TECHNIQUE: Transaxial images were obtained from the dome of the diaphragm to the symphysis pubis without oral contrast. IV 100mL Isovue-300 was administered. Sagittal and coronal images were reconstructed. Individualized dose optimization techniques were used for this CT. COMPARISON: Comparison is made with prior study dated 10/13/2020. FINDINGS: The visualized lung bases are unremarkable. Coronary artery calcification. Small amount of residual ascites. Normal liver. There are surgical clips in the gallbladder fossa consistent with a prior cholecystectomy. Normal spleen. There is diffuse atrophy of the pancreas. Normal bilateral adrenal glands. Normal right kidney. Normal left kidney. Normal visualized stomach. Minimal fluid distention of upper small bowel loops. Moderate amount of fecal material is seen in the colon more pronounced in the right hemicolon. 5 suggestive of possible inflammatory change in the region of the cecum. There is diffuse atherosclerotic calcification of the abdominal aorta, without a demonstrated aneurysm. Normal inferior vena cava. Normal retroperitoneum. Distended urinary bladder. Normal abdominal wall. Normal osseous structures. CT/Abdomen/Pelvis W IV Cont ONLY IMPRESSION: Mild degree residual ascites. Thickening of the cecum. Focal colitis should be ruled out. Electronically Signed: Checo Ball MD at 15:43 EDT ,
[2021-12-06 15:42] LABS: Red Cell Count/Body Fluid 277 /mm3
[2021-12-06 15:57] LABS: Glucose, Body Fluid 325 mg/dL (40-70); LDH,Body Fluid 57 Units/l (Not Establ.)
[2021-12-06 16:01] LABS: Neutrophil (Segs) 84 %
[2021-12-06 16:03] LABS: Body Fluid QC Type(s) BF5Q; Monocytes 16 %
--- NOTE | 2021-12-06 16:45 | HP.PCM.HOS_ITS ---
HPI - General General Date of Admission: 12/06/21 Date of Service: 12/06/21 Chief Complaint: abdominal pain HPI Narrative CAMDEN HOLDER, is a 71 M with a past medical history as outlined who presents via the ED on 12/06/2021 with a complaint of abdominal pain which have been going on for about a couple of days. 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 He states he started having abdominal pain with abdominal distention about 3 days prior to admission. Abdominal pain was rated about 10 out of 10, sharp and nonradiating with no aggravating factors but relieved by Dilaudid when he came into the ED. He denied any associated fever or chills, nausea or vom iting, burning with urination, shortness of breath or palpitations. Review of systems otherwise negative. He came in for paracentesis today and had 3.4 L of fluid removed. Vitals in the ED where blood pressure 108/49, pulse rate of 93, respiratory rate of 20 and temperature was 98.5 Fahrenheit. He was saturating at 92% on room air. CBC showed hemoglobin of 11.1 and WBC of 13.1 as well as platelets of 123. INR was 1.5. Chemistry showed sodium of 127 with bicarb of 22 and potassium of 4.7. Creatinine was 1.37. Total bilirubin was 2.1 and direct bilirubin was 1.13. Ascitic fluid analysis showed WBC of 2.351 and polymorphonuclear WBC of 1.835. He is being admitted to be managed for probable spontaneous bacterial peritonitis. He was given a dose of IV zosyn in the ED [facility] Medical History (Updated 12/06/21 @ 16:43 by Christine Ferrer) Anxiety Atherosclerotic heart disease of [place] coronary artery without angina pectoris Atrial fibrillation CAD (coronary artery disease) Carotid artery disease Cataract Cataract (lens) fragments in eye following cataract surgery, bilateral Chest pain Chronic cough Chronic headaches Chronic neck and back pain Cirrhosis Diabetes Essential hypertension Fatigue GERD (gastroesophageal reflux disease) History of coronary artery disease HLD (hyperlipidemia) Kidney stones Migraines Myocardial infarct Neuropathy Non-smoker NSTEMI (non-ST elevated myocardial infarction) Numbness and tingling in right hand Obstructive sleep apnea Pancreatitis Post traumatic stress disorder (PTSD) Restless legs syndrome Severe headache Type 2 diabetes mellitus Home Medications insulin aspart U-100 100 unit/mL (3 mL) subcutaneous pen 18 units subcut TIDCM high blood sugar 12/23/16 [History Last Taken 10/13/20] insulin glargine 100 unit/mL (3 mL) subcutaneous pen 38 units subcut BID high blood sugar 12/23/16 [History Last Taken 10/13/20] pyridoxine (vitamin B6) 100 mg tablet 100 mg PO DAILY supplement 12/23/16 [History Last Taken 12/05/21] therapeutic multivitamin 1 ea PO DAILY supplement 12/23/16 [History Last Taken 12/05/21] pregabalin 150 mg capsule 150 mg PO BID nerve pain 04/23/18 [History Last Taken 12/05/21] isosorbide mononitrate 30 mg tablet,extended release 24 hr 30 mg PO DAILY heart #90 tabs 07/13/18 [Rx Last Taken 10/12/20] nitroglycerin 0.4 mg sublingual tablet 0.4 mg sublingual Q5-15M PRN cp 12/26/18 [History Last Taken 1 Month Ago ~09/12/20] alirocumab 150 mg/mL subcutaneous pen injector 150 mg SQ .Q2WEEK 12/13/19 [History Last Taken 12/01/20] zolpidem 5 mg tablet (Ambien) 5 mg PO QHS PRN Sleep 10/13/20 [History Last Taken 3 Days Ago ~10/10/20] hijbkm-ekiplqzc-fwfbdzr 24,000-76,000-120,000 unit capsule,delayed rel (Creon) 3 cap PO TIDCM 10/14/20 [History Last Taken Unknown] albuterol sulfate 90 mcg/actuation aerosol inhaler (Ventolin HFA) 2 puff inhalation Q6H PRN Wheezing 08/25/21 [History Last Taken Unknown] benzonatate 200 mg capsule 200 mg PO TID PRN Cough 08/25/21 [History Last Taken Unknown] carbidopa 10 mg-levodopa 100 mg tablet 1 tab PO QHS 08/25/21 [History Last Taken 12/05/21] clotrimazole 1 % topical cream 1 applic topical BID 08/25/21 [History Last Taken Unknown] dicyclomine 20 mg tablet 20 mg PO TID PRN abdominal cramps 08/25/21 [History Last Taken Unknown] empagliflozin 25 mg tablet 25 mg PO DAILY 08/25/21 [History Last Taken Unknown] fluticasone furoate 50 mcg/actuation blister powder for inhalation 100 mcg inhalation DAILY 08/25/21 [History Last Taken Unknown] furosemide 20 mg tablet 40 mg PO DAILY 08/25/21 [History Last Taken Unknown] lactulose 10 gram/15 mL oral solution 10 g PO BID 08/25/21 [History Last Taken Unknown] lifitegrast 5 % eye drops in a dropperette 1 drp EACH EYE Q12H 08/25/21 [History Last Taken Unknown] mometasone 200 mcg/actuation HFA aerosol inhaler 2 puff inhalation BID 08/25/21 [History Last Taken Unknown] pantoprazole 40 mg tablet,delayed release 40 mg PO DAILY 08/25/21 [History Last Taken 12/05/21] spironolactone 50 mg tablet 50 mg PO DAILY 08/25/21 [History Last Taken 12/05/21] topiramate 50 mg tablet 50 mg PO DAILY 08/25/21 [History Last Taken 12/05/21] ammonium lactate 12 % lotion 1 applic topical DAILY 12/06/21 [History Last Taken Unknown] bacitracin 500 unit/gram topical ointment 1 applic topical TID 12/06/21 [History Last Taken Unknown] carboxymethylcellulose sodium 0.5 % eye drops 1 drp EACH EYE TID 12/06/21 [History Last Taken 12/05/21] carboxymethylcellulose sodium 1 % eye drops 1 drp EACH EYE BID 12/06/21 [History Last Taken Unknown] cholecalciferol (vitamin D3) 50 mcg (2,000 unit) chewable tablet 50 mcg PO DAILY 12/06/21 [History Last Taken 12/05/21] duloxetine 20 mg capsule,delayed release 20 mg PO DAILY 12/06/21 [History Last Taken Unknown] ferrous sulfate 325 mg (65 mg iron) tablet 325 mg PO DAILY 12/06/21 [History Last Taken Unknown] glucose 4 gram chewable tablet 4 g PO Q15M PRN Hypoglycemia 12/06/21 [History Last Taken Unknown] lanolin alcohols-mineral oil-w.petrolatum-ceresin topical cream (Eucerin topical cream) 1 applic topical DAILY PRN Dry Skin 12/06/21 [History Last Taken Unknown] lidocaine 4 % topical cream 1 applic topical TID PRN Skin Cleansing 12/06/21 [History Last Taken Unknown] rifaximin 550 mg tablet (Xifaxan) 550 mg PO BID 12/06/21 [History Last Taken 12/06/21] tramadol 50 mg tablet 50 mg PO Q6H PRN PRN Pain 12/06/21 [History Last Taken 12/05/21] Allergy/AdvReac Type Severity Reaction Status Date / Time oxycodone [From OxyContin] Allergy Shortness Verified 12/06/21 12:24 of breath atorvastatin [From Lipitor] AdvReac muscle Verified 12/06/21 12:24 weakness fish oil AdvReac muscle Verified 12/06/21 12:24 weakness morphine AdvReac MIGRAINE TAO Verified 12/06/21 12:24 Family History Mother Diabetes Heart disease Cancer Hypertension Father Diabetes Heart disease Hypertension CVA (cerebral vascular accident) Sister Ulcerative colitis Surgical History (Updated 12/06/21 @ 16:43 by Christine Ferrer) History of ankle surgery History of cholecystectomy History of coronary artery stent placement History of facial surgery Hx of CABG (~08/2017) S/P coronary artery stent placement (~07/05/18) Social History housing: house Smoking Status: Never smoker alcohol intake: never substance use type: does not use ROS Constitutional Constitutional: Reports chills, fatigue, malaise and weakness; Denies anorexia or fever(s) Eyes Eyes: Denies change in vision ENT HEENT: Denies dysphagia, nasal congestion or sore throat Cardiovascular Cardiovascular: Denies chest pain, dyspnea on exertion, edema, lightheadedness, orthopnea, palpitations, paroxysmal nocturnal dyspnea, rapid heart rate or syncope Respiratory/Chest Respiratory/Chest: Denies cough, dyspnea, productive cough, shortness of breath at rest or shortness of breath with exertion Gastrointestinal Gastrointestinal: Reports abdominal pain; Denies constipation, diarrhea, dyspepsia, hematemesis, hematochezia, nausea or vomiting Genitourinary Genitourinary: Denies burning urination or difficulty urinating Neurologic Neurologic: Denies confusion, dizziness, focal weakness, headache(s), numbness, seizure-like activity or syncope Psychiatric Psychiatric: Denies anxiety Endocrine Endocrinology: Denies change in body appearance Hematologic/Lymphatic Hematologic/Lymphatic: Denies anemia Vital Signs Vital Signs Vital Signs: 12/06/21 12:04 12/06/21 12:19 12/06/21 12:20 Temperature 98.6 F 98.5 F 98.5 F Temperature Source Temporal Temporal Temporal Pulse Rate 105 H 102 H 104 H Pulse Rate [1 (Initial Baseline)] Pulse Rate [2] Pulse Rate [3] Respiratory Rate 16 19 H 19 H Respiratory Rate [1 (Initial Baseline)] Respiratory Rate [2] Respiratory Rate [3] Blood Pressure 149/56 H 143/50 H 143/50 H Blood Pressure [1 (Initial Baseline)] Blood Pressure [2] Blood Pressure [3] Blood Pressure Mean 87 81 81 Pulse Ox 100 98 98 Oxygen Delivery Method Room Air Room Air Room Air Oxygen Delivery Method [1 (Initial Baseline)] Oxygen Delivery Method [2] Oxygen Delivery Method [3] 12/06/21 13:52 12/06/21 13:59 12/06/21 15:44 Temperature 99.0 F 98.5 F Temperature Source Temporal Temporal Pulse Rate 83 91 Pulse Rate [1 (Initial Baseline)] 88 Pulse Rate [2] 95 Pulse Rate [3] 95 Respiratory Rate 16 16 Respiratory Rate [1 (Initial Baseline)] 16 Respiratory Rate [2] 15 Respiratory Rate [3] 20 H Blood Pressure 105/48 L 118/50 L Blood Pressure [1 (Initial Baseline)] 108/47 L Blood Pressure [2] 109/45 L Blood Pressure [3] 106/38 L Blood Pressure Mean 67 72 Pulse Ox 100 100 Oxygen Delivery Method Room Air Room Air Oxygen Delivery Method [1 (Initial Baseline)] Room Air Oxygen Delivery Method [2] Room Air Oxygen Delivery Method [3] Room Air 12/06/21 16:04 12/06/21 16:04 Temperature 98.5 F 98.5 F Temperature Source Temporal Temporal Pulse Rate 93 93 Pulse Rate [1 (Initial Baseline)] Pulse Rate [2] Pulse Rate [3] Respiratory Rate 20 H 20 H Respiratory Rate [1 (Initial Baseline)] Respiratory Rate [2] Respiratory Rate [3] Blood Pressure 108/49 L 108/49 L Blood Pressure [1 (Initial Baseline)] Blood Pressure [2] Blood Pressure [3] Blood Pressure Mean 68 68 Pulse Ox 92 92 Oxygen Delivery Method Room Air Room Air Oxygen Delivery Method [1 (Initial Baseline)] Oxygen Delivery Method [2] Oxygen Delivery Method [3] Weight Weight: 171 lb Body Mass Index (BMI) 24.5 Physical Exam Const alert, oriented x3 and no apparent distress General Appearance: cooperative Orientation / Consciousness: Negative for confused HEENT normocephalic, head/scalp atraumatic, hearing grossly normal bilaterally, moist oral mucous membranes and oropharynx normal Mouth: oral and palatal mucosa normal Eyes PERRL, EOMs intact bilaterally and conjunctivae normal Neck no lymphadenopathy and supple Resp normal respiratory effort, no retractions, no use of accessory muscles and clear to auscultation bilaterally Cardio regular rate, regular rhythm, S1 normal heart sound, S2 normal heart sound and no murmurs GI normal to inspection, nondistended, normoactive bowel sounds, soft to palpation, non-tender and non-distended GI Narrative: positive shifting dullness, minimal tenderness Extremity normal to inspection, full ROM and no clubbing, cyanosis or edema Neuro oriented x3, CN's II-XII intact bilaterally, moves all extremities and no focal motor deficits Sensorium / Orientation: awake and alert Motor Exam: strength 5/5 throughout Results Lab / Micro Data Result Diagrams: 12/06/21 13:40 12/06/21 13:40 Labs: Laboratory Results - last 24 hr 12/06/21 13:40: WBC 13.1 H, RBC 4.33 L, Hgb 11.1 L, Hct 36.6 L, MCV 84.5, MCH 25.6 L, MCHC 30.3 L, RDW Std Deviation 72.2 H, RDW Coeff of Angeline 23.6 H, Plt Count 123 L, MPV 10.8, Immature Gran % (Auto) 0.900, Neut % (Auto) 84.2 H, Lymph % (Auto) 10.2 L, [place] % (Auto) 4.2, Eos % (Auto) 0.1, Baso % (Auto) 0.4, Absolute Neuts (auto) 11.0 H, Absolute Lymphs (auto) 1.33, Nucleated RBC % 0, Anisocytosis 1+ 12/06/21 13:40: PT 17.6 H, INR 1.5, APTT 32.0 12/06/21 13:40: Sodium 127 L, Potassium 4.7, Chloride 97 L, Carbon Dioxide 22.0, Anion Gap 8, BUN 19 H, Creatinine 1.37 H, Estim Creat Clear Calc 49.58, Est GFR (MDRD) Af Amer 65, Est GFR (MDRD) Non-Af 54 L, BUN/Creatinine Ratio 13.9, Glucose 364 H, Calcium 8.1 L, Total Bilirubin 2.10 H, Direct Bilirubin 1.13 H, AST 92 H, ALT 49, Alkaline Phosphatase 243 H, Total Protein 7.4, Albumin 1.9 L, Globulin 5.5 H, Lipase 52 L 12/06/21 14:11: Fluid Glucose 325 H, Fluid Total Protein 1.0, Fluid LDH 57 12/06/21 14:11: Fluid Source OTHER, Fluid Color YELLOW, Fluid Appearance CLEAR, Fluid WBC 2.351, Fluid RBC 277, Fluid Tot Cell Count 2.406, Fld Polynuclear WBCs # 1.835, Fld Polynuclear WBCs % 78.0, Fluid Mononuclear WBCs 0.516, Fld Mononuclear WBCs % 22.0, Fluid Neutrophils 84, Fluid Monocytes 16, Fl Pathologist Comment May follow, Fluid Comment 2 SEE COMMENT Radiology Impression Paracentesis Ultrasound 12/06/21 13:01 IMPRESSION: Ultrasound guided paracentesis. Electronically Signed: Checo Ball MD at 15:10 EDT , Abdomen/Pelvis CT 12/06/21 15:22 IMPRESSION: Mild degree residual ascites. Thickening of the cecum. Focal colitis should be ruled out. Electronically Signed: Checo Ball MD at 15:43 EDT , Assessment & Plan Assessment/Plan (1) Peritonitis: PLAN: Plan #SPontaneous bacterial peritonitis * Admit to [facility] with telemetry * Had paracentesis today with removal of 3.4 L of fluid. * Ascitic fluid analysis showed total cell count of 2.4 with fluid polymorphonuclear WBC of 1.835. Polymorphonuclear WBCs should be more than 250 to meet criteria for SBP but in light of his having ascites as well as abdominal pain, I think it is prudent to go ahead and treat patient for SBP. * Will put on IV cefepime * Will send fluid for culture. Also order blood cultures. * Hydrate very gently with a liter of IV fluids. * #Cirrhosis due to nonalcoholic steatohepatitis * On lactulose. Hepatic flap positive. Titrate lactulose to obtain 2-3 loose stools daily. * On rifaximin. We will continue. Also on spironolactone and Lasix * #Type 2 diabetes mellitus: * On Lantus 38 units twice daily. On empagliflozin. Insulin sliding scale. Accu-Cheks ACH S. #CAD s/p CABG and stent * On statin as well as alirocumab #History of chronic pancreatitis: On Creon #Number cytopenia: Platelets are 127. Likely due to cirrhosis. Will monitor. DVT prophylaxis: SCDs CODE STATUS: Full code * Patient and counseled extensively about different types of CODE STATUS including full code, DNR CCA and DNR CCA. Patient elects to be full code. * Total [id number] time 18 minutes. Charges/Coding Visit Charges Inpatient E&M: 90650 Init Hosp L3 Procedures Hospitalists Procedures: 56664 Advncd Care Plan 30 Min
[2021-12-06 17:07] LABS: Auto B Fluid Analyzer BKGD Ct COUNTS W/IN LIMITS (W/IN LIMITS)
[2021-12-06] MEDS: 0.9% Saline Lock 10 ML Syringe IV (18:34)
[2021-12-06] MEDS: HYDROmorphone 0.5 MG/0.5 ML SYRINGE IV (18:34)
[2021-12-06] MEDS: Budesonide Respules 0.5 MG/2 ML AMPUL.NEB. INHALATION (20:30)
[2021-12-06] MEDS: BACITRACIN 15 GM Tube 1 APPLIC TOPICAL (21:11)
[2021-12-06] MEDS: Glycerin/Hypromellose/PEG400 15 ml Bottle 1 DRP EACH EYE (21:11)
[2021-12-06] MEDS: Insulin Glargine-YFGN 100 UNIT/ML Pen 38 UNIT SC (21:12)
[2021-12-06] MEDS: Creon 24,000 unit DR Capsule 3 CAP PO (21:14)
[2021-12-06] MEDS: Lactulose 20 GM/30 ML UDC 10 GM PO (21:14)
[2021-12-06] MEDS: rifAXIMin 550 MG Tablet PO (21:17)
[2021-12-06] MEDS: Carbidopa/Levodopa 10/100 Tablet PO (21:17)
[2021-12-06] MEDS: Pregabalin 75 MG Capsule 150 MG PO (21:20)
[2021-12-06] MEDS: Insulin Lispro 100 UNIT/ML INSULN.PEN SC (21:20)
[2021-12-06 21:50] LABS: Bedside Glucose 327 mg/dL (74-106)
[2021-12-07 03:00] VITALS: BP 103/48; PULSE 89; RESP 18; TEMP 37.1; O2SAT 95
[2021-12-07 05:51] LABS: Absolute Lymphocyte Count 1.13 X10^3/uL (0.83-4.51); Basophil# 0.03 X10^3/uL; Basophil% 0.4 % (0-1); Eosinophil# 0.07 X10^3/uL; Hematocrit 31.6 % (40-54); Hemoglobin 9.9 g/dL (13.0-16.5); Lymphocyte # 1.13 X10^3/ul (0.83-4.51); Lymphocyte % 16.7 % (19-41); Mean Corp Hgb Conc 31.3 g/dL (32-36); Mean Corpuscular Hgb 26.1 pg (27.0-32.0); Mean Corpuscular Volume 83.4 fL (80-94); Mean Platelet Vol. 11.1 fl (6.2-12.0); Monocyte# 0.51 X10^3/uL; Monocyte% 7.6 % (0-10); NRBC Flagged by Analyzer 0 % (0-5); Neutrophil # 4.97 X10^3/uL (2.7-7.7); Neutrophil % 73.7 % (47-70); POSITIVE COUNT YES; POSITIVE MORPHOLOGY YES; Platelet Count 98 K/mm3 (150-450); RBC Distribution Width CV 23.2 % (11.6-14.6); Red Blood Count 3.79 M/mm3 (4.6-6.2); White Blood Count 6.8 K/mm3 (4.4-11.0)
[2021-12-07 05:55] LABS: Differential Indicated SCAN CRITERIA MET
[2021-12-07 06:15] LABS: Platelet Estimate MOD DEC (ADEQ)
[2021-12-07 06:16] LABS: Anisocytosis 2+
[2021-12-07 06:36] LABS: ALB/GLOB Ratio 0.3 RATIO (0.9-2.4); AST(SGOT) 67 U/L (15-37); Alanine Aminotransfer ALT/SGPT 21 U/L (16-61); Albumin, Serum 1.6 g/dL (3.2-5.0); Alkaline Phosphatase 203 U/L (45-117); Anion Gap 7 (5-15); BUN 22 mg/dL (7-18); BUN/Creat Ratio 17.5 RATIO (10-20); Calcium,Total 7.7 mg/dL (8.5-10.1); Chloride 99 mmol/L (98-107); Creatinine, Serum 1.26 mg/dL (0.70-1.30); EST Glomerular Filtration Rate 60 mL/min (>60); Est Glom Filt Rate - Afr Amer 72 mL/min (>60); Estimated Creatinine Clearance 53.91 ml/min; Globulin 4.8 g/dL (2.2-4.2); Glucose 298 mg/dL (74-106); Potassium 3.9 mmol/L (3.5-5.1); Protein, Total 6.4 g/dL (6.4-8.2); Sodium Level 128 mmol/L (136-145)
[2021-12-07] MEDS: Insulin Lispro 100 UNIT/ML INSULN.PEN SC ×4 (06:45→21:41)
[2021-12-07] MEDS: BACITRACIN 15 GM Tube 1 APPLIC TOPICAL ×3 (06:46→21:40)
[2021-12-07] MEDS: Glycerin/Hypromellose/PEG400 15 ml Bottle 1 DRP EACH EYE ×3 (06:46→21:40)
[2021-12-07 07:10] LABS: Bedside Glucose 245 mg/dL (74-106)
[2021-12-07] MEDS: Budesonide Respules 0.5 MG/2 ML AMPUL.NEB. INHALATION ×2 (07:15→19:20)
[2021-12-07 07:16] VITALS: PULSE 79; RESP 16; O2SAT 96
--- NOTE | 2021-12-07 07:28 | PN.HOSP_ITS ---
Subjective Subjective Patient is a 71-year-old gentleman with history of cirrhosis of the liver with paracentesis every 10 days presented with abdominal pain and assessment of SBP [facility] Objective Data Objective Data Vital Signs: Vital Signs Temp Pulse Resp BP Pulse Ox O2 Del Method 98.8 F 79 16 103/48 L 96 Room Air 12/07/21 03:00 12/07/21 07:16 12/07/21 07:16 12/07/21 03:00 12/07/21 07:16 12/07/21 07:16 Oxygen Delivery Method [3] Room Air Oxygen Delivery Method [2] Room Air Oxygen Delivery Method [1 ( Room Air Initial Baseline)] Oxygen Delivery Method Room Air Weight: 77.564 kg Body Mass Index (BMI) 24.5 Intake & Output: Intake and Output for Last 24 Hours 12/05/21 12/06/21 12/07/21 23:59 23:59 23:59 Intake Total 1150 / 1150 300 / 300 Output Total 3400 / 3400 Balance -2250 / -2250 300 / 300 Lab / Micro Data Result Diagrams: 12/07/21 05:01 12/07/21 05:01 Labs: Laboratory Results - last 24 hr 12/06/21 13:40: WBC 13.1 H, RBC 4.33 L, Hgb 11.1 L, Hct 36.6 L, MCV 84.5, MCH 25.6 L, MCHC 30.3 L, RDW Std Deviation 72.2 H, RDW Coeff of [place] 23.6 H, Plt Co unt 123 L, MPV 10.8, Immature Gran % (Auto) 0.900, Neut % (Auto) 84.2 H, Lymph % (Auto) 10.2 L, [place] % (Auto) 4.2, Eos % (Auto) 0.1, Baso % (Auto) 0.4, Absolute Neuts (auto) 11.0 H, Absolute Lymphs (auto) 1.33, Nucleated RBC % 0, Anisocytosis 1+ 12/06/21 13:40: PT 17.6 H, INR 1.5, APTT 32.0 12/06/21 13:40: Sodium 127 L, Potassium 4.7, Chloride 97 L, Carbon Dioxide 22.0, Anion Gap 8, BUN 19 H, Creatinine 1.37 H, Estim Creat Clear Calc 49.58, Est GFR (MDRD) Af Amer 65, Est GFR (MDRD) Non-Af 54 L, BUN/Creatinine Ratio 13.9, Glucose 364 H, Calcium 8.1 L, Total Bilirubin 2.10 H, Direct Bilirubin 1.13 H, AST 92 H, ALT 49, Alkaline Phosphatase 243 H, Total Protein 7.4, Albumin 1.9 L, Globulin 5.5 H, Lipase 52 L 12/06/21 14:11: Fluid Glucose 325 H, Fluid Total Protein 1.0, Fluid LDH 57 12/06/21 14:11: Fluid Source OTHER, Fluid Color YELLOW, Fluid Appearance CLEAR, Fluid WBC 2.351, Fluid RBC 277, Fluid Tot Cell Count 2.406, Fld Polynuclear WBCs # 1.835, Fld Polynuclear WBCs % 78.0, Fluid Mononuclear WBCs 0.516, Fld Mononuclear WBCs % 22.0, Fluid Neutrophils 84, Fluid Monocytes 16, Fl Pathologist Comment May follow, Fluid Comment 2 SEE COMMENT 12/06/21 21:06: POC Glucose 327 H 12/07/21 05:01: WBC 6.8, RBC 3.79 L, Hgb 9.9 L, Hct 31.6 L, MCV 83.4, MCH 26.1 L , MCHC 31.3 L, RDW Std Deviation 71.0 H, RDW Coeff of [place]eline 23.2 H, Plt Count 98 L , MPV 11.1, Immature Gran % (Auto) 0.600, Neut % (Auto) 73.7 H, Lymph % (Auto) 16.7 L, [place] % (Auto) 7.6, Eos % (Auto) 1.0, Baso % (Auto) 0.4, Absolute Neuts (auto) 5.0, Absolute Lymphs (auto) 1.13, Nucleated RBC % 0, Platelet Estimate MOD DEC, Anisocytosis 2+ 12/07/21 05:01: Sodium 128 L, Potassium 3.9, Chloride 99, Carbon Dioxide 22.0, Anion Gap 7, BUN 22 H, Creatinine 1.26, Estim Creat Clear Calc 53.91, Est GFR (MDRD) Af Amer 72, Est GFR (MDRD) Non-Af 60, BUN/Creatinine Ratio 17.5, Glucose 298 H, Calcium 7.7 L, Total Bilirubin 1.10 H, AST 67 H, ALT 21, Alkaline Phosphatase 203 H, Total Protein 6.4, Albumin 1.6 L, Globulin 4.8 H, Albumin/Globulin Ratio 0.3 L 12/07/21 06:45: POC Glucose 245 H Radiography Diagnostic Testing: Radiology Impression Paracentesis Ultrasound 12/06/21 13:01 IMPRESSION: Ultrasound guided paracentesis. Electronically Signed: Checo Ball MD at 15:10 EDT , Abdomen/Pelvis CT 12/06/21 15:22 IMPRESSION: Mild degree residual ascites. Thickening of the cecum. Focal colitis should be ruled out. Electronically Signed: Checo Ball MD at 15:43 EDT , Physical Exam Narrative GENERAL: cooperative HEENT: Atraumatic; EYES; Anicteric, Normal Conjunctiva NECK; supple, normal thyroid, RESPIRATORY: Diminished to auscultation CARDIOVASCULAR: Regular S1 S2, GI: soft, normoactive bowel sounds, slightly distended : No Renal angle tenderness; EXTREMITIES: No edema, no clubbing, MUSCULOSKELETAL: no muscle wasting NEURO: Awake; no lateralizing signs. SKIN: No Rash PSYCH; Flat affect Assessment & Plan Assessment/Plan (1) Peritonitis: PLAN: Plan Patient is a 71-year-old gentleman with history of cirrhosis of the liver with paracentesis every 10 days presented with abdominal pain and assessment of SBP made admitted to [facility] floor for subsequent management 1. SBP ? Patient ascitic fluid analysis did not meet criteria for SBP however given the fact patient has frequent paracentesis and in light of her abdominal pain diagnosis of SBP was entertained started on cefepime cultures sent 2. Cirrhosis of the liver secondary to nonalcoholic fatty liver disease ? Patient is on lactulose and rifaximin and as stated above undergoes paracentesis every 10 days. Consultation was placed to GI 3. Diabetes mellitus type 2 ? Patient is on Lantus continued also placed on Accu-Cheks before meals and at bedtime with sliding scale coverage 4. Coronary artery disease ? Status post CABG with subsequent stent placement 5. Dyslipidemia ? Patient is on statin therapy as well as alirocumab 6. Restless leg syndrome ? Patient is on carbidopa/levodopa 7. Hyponatremia ? Secondary to patient fluid overload status from his cirrhosis of the liver monitoring 8. Thrombocytopenia ? Secondary to patient chronic liver disease monitoring 9. DVT prophylaxis ? Chemoprophylaxis not initiated in view of patient low platelet count 10. Anemia - Secondary to chronic disorder monitoring H&H and transfuse if patient becomes symptomatic or hemoglobin falls below 7 Charges/Coding Visit Charges Inpatient E&M: 36763 Subs Hosp L3
[2021-12-07 07:52] VITALS: BP 107/61; PULSE 75; RESP 16; TEMP 37; O2SAT 98
[2021-12-07] MEDS: Furosemide 40 MG Tablet PO (08:00)
[2021-12-07] MEDS: Isosorbide Mononitrate 30 MG Tablet PO (08:00)
[2021-12-07] MEDS: Pantoprazole Sodium 40 MG Tablet PO (08:00)
[2021-12-07] MEDS: DULoxetine Hcl 20 MG Capsule PO (08:00)
[2021-12-07] MEDS: Calcium Carb/Vitamin D 1 TABLET Tablet PO (08:00)
[2021-12-07] MEDS: Pyridoxine HCl 100 MG Tablet PO (08:00)
[2021-12-07] MEDS: Ferrous Sulfate 325 MG Tablet PO (08:00)
[2021-12-07] MEDS: Mesalamine 1.2 GM Tablet PO (08:00)
[2021-12-07] MEDS: rifAXIMin 550 MG Tablet PO ×2 (08:00→21:40)
[2021-12-07] MEDS: Empagliflozin 25 MG Tablet PO (08:00)
[2021-12-07] MEDS: Cholecalciferol (VIT D3) 25 MCG TABLET (1,000 UNITS) 50 MCG PO (08:01)
[2021-12-07] MEDS: Multivitamins,Therapeutic Tablet 1 TABLET PO (08:01)
[2021-12-07] MEDS: Topiramate 50 MG Tablet PO (08:01)
[2021-12-07] MEDS: Spironolactone 50 MG Tablet PO (08:01)
[2021-12-07] MEDS: Creon 24,000 unit DR Capsule 3 CAP PO ×3 (08:01→17:00)
[2021-12-07] MEDS: Lactulose 20 GM/30 ML UDC 10 GM PO ×2 (08:01→21:40)
[2021-12-07] MEDS: Ammonium Lactate 225 gm Bottle 1 APPLIC TOPICAL (08:06)
[2021-12-07] MEDS: Insulin Glargine-YFGN 100 UNIT/ML Pen 38 UNIT SC ×2 (08:08→21:41)
[2021-12-07] MEDS: Pregabalin 75 MG Capsule 150 MG PO ×2 (08:13→21:41)
[2021-12-07] MEDS: 0.9% Saline Lock 10 ML Syringe IV ×2 (10:49→12:55)
--- NOTE | 2021-12-07 10:50 | CASEMGMT ---
RN VESTA RADIO FREQUENCY DESIGN ENGINEER CM to room to meet with patient for initial transition planning/care coordination assessment. NEISHA LEMONS introduced self and role at [facility].? Pt voices understanding and consents to assessment at this time.? Pt resting in bed in no distress at this time.? Pt is A/O at this time and answers all questions appropriately.?? Care providers, pharmacy, and demographics verified/updated at this time. PCP: Dr Dima Tavarez. Also goes to [facility] every 3 months. Specialists: Dr Camargo-GI, Dr Coe-hematology, Head Neck Surgeon @ [place]. Pt comes to [facility] every 10 days for OP paracentesis. [facility]. [facility] for refills [facility] Prescription Benefit:? Yes Living Will/HPOA:? Has LW and HPOA, who is his , Julia LNOK: , Julia Living Arrangements: Lives w/, dtr, and SABRINA in 2-story home w/2 steps to enter. Bedroom and bathroom on 2nd floor. 1/2 bath on main floor. Denies difficulty w/stairs. Independent w/ADL's. Dtr and manage all home tasks. manages pt's appts and medications. 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 DME: ?States has the following DME:? glucometer w/supplies, cane, pulse ox, BP machine ?Pt states no need for further DME at this time.? HHC/SNF: No hx of either. Pt denies needing HHC. Pt states his is working on getting someone to come in to check on him every week. He thinks it is someone through the [facility]. He was not able to provide further information, stating, You'll have to ask her. She's the one setting it up. MS3 RN, Betty, made aware and will f/u w/. Pt wishes to return home and states has no concerns with going home at time of discharge.? CM to follow for any discharge planning/needs.? Pt voices no concerns/needs at this time.? Advised pt to ask for CM if any questions/concerns/needs arise.? Voices understanding. PLAN: ?Home w/spousal support and discharge plans in place. Marianela WEINSTEINN RN CM
[2021-12-07 12:21] LABS: Bedside Glucose 272 mg/dL (74-106)
[2021-12-07] MEDS: HYDROmorphone 2 MG TABLET PO ×2 (13:38→16:58)
--- NOTE | 2021-12-07 13:39 | NURSING ---
iv site x2 infiltrated/ iv pain meds changed to po prn
--- NOTE | 2021-12-07 14:16 | CASEMGMT ---
RN CM in to pt room to verify with nurse that is being set up. Pt states she has not arrived yet. He will notify nurse when she does to get the RN CM.
--- NOTE | 2021-12-07 15:31 | CHAPLAIN ---
Type of Pastoral Visit _x__ Initial Visit ___ Follow-up Visit ___ On-call Visit ___ General Patient Visit ___ Spiritual Assessment ___ Family Conference ___ Bereavement ___ Rapid Response ___ Code Blue ___ Other (describe below) Pastoral Care Referral From _x__ Patient ___ Family ___ Nurse ___ Physician ___ Ground Host/Hostess ___ Yarn Sorter ___ Other (describe below) Sacrament/Intervention _x__ Active listening ___ Anointing ___ Yazidism ___ Bereavement ___ Communion ___ Maris exploration ___ _x__ Life review _x__ Prayer ___ Reconciliation ___ Sacrament of Sick _x__ Supportive presence ___ Wedding ___ Other (describe below) Pastoral Comments patient reviewed some of the recent medical needs he has had; pt gives some life review and discussion about his service in [place] ensues; offer of appreciation for service, supportive presence, spiritual care through prayer and affirmation of maris
--- NOTE | 2021-12-07 16:07 | NURSING ---
Addendum entered by Julia Khan 12/07/21 16:13: MULTIPLE ATTEMPTS BY SEVERAL PEOPLE TO PLACE IV. THIS NURSE PLACED ONE ON THE 2ND ATTEMPT THAT LASTED APPROX 15 MINUTES. 2 OTHER NURSES ATTEMPTED AND 1 OTHER LOOKED. FINALLY AND ICU NURSE CAME UP AND PLACED ONE IN THE LIFA THAT LASTED APPROX 5 MINUTES BEFORE IT OCCLUDED. Original Note: MIDLINE HAS BEEN PLACED AND ATB COMPLETED. PT REQUESTING IV PAIN MEDS BE REORDERED BECAUSE HE REPORTS THAT THE PO DILAUDID DID NOT TAKE THE PAIN COMPLETELY AWAY
[2021-12-07 16:30] VITALS: BP 114/59; PULSE 77; RESP 16; TEMP 37; O2SAT 100
[2021-12-07 17:35] LABS: Bedside Glucose 261 mg/dL (74-106)
--- NOTE | 2021-12-07 19:04 | CON.PCM_ITS ---
Assessment & Plan Assessment/Plan (1) Peritonitis: PLAN: There is a possibility of secondary peritonitis. The fluid cultures are pending. By calculation his total white blood cell count time his percentage of neutrophils does not equal to 250. Clinically he is behaving like secondary peritonitis therefore he will need to complete a 5-day course of antibiotic therapy. Without positive cultures I would not put him on ciprofloxacin or Bactrim for lifetime. (2) Anemia: PLAN: Anemia likely secondary to cirrhosis accompanied by thrombocytopenia. His hemoglobin seems to be stable at this time. (3) Cirrhosis: PLAN: He is not showing any signs of decompensated cirrhosis being that he is not encephalopathic, his ascites has not reaccumulated, he is not bleeding and he is not jaundice. Recommend to continue lactulose therapy. Consider Xifaxan 550 mg twice a day as prophylaxis for encephalopathy. Since he is getting large-volume paracentesis almost once a week I would not restart his diuretic therapy. You very much for allowing me to precipitate in care of this patient. HPI Consult Data Date of Consult: 12/07/21 HPI Narrative Reason for Consultation: peritonitis HPI Narrative: CAMDEN HOLDER, is a 71 M who presents from home with worsening abdominal pain. 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 He is on lactulose 3 times a day. He also has a past medical history of CAD status post PTCA with stent and CABG procedure. He presented to the ED have developing abdominal pain 3 days after large-volume paracentesis of 9 L. He had repeat paracentesis that was suspicious for possible SBP due to the minor white blood cells and the ascitic fluid. His glucose was elevated at 362, amylase, lipase were not drawn. Cytology and culture is pending. He has been on antibiotic therapy and his pain is with medical therapy. CT scan of the abdomen pelvis showed a normal stomach, mild fluid distention in the upper small bowel loops. There was possible inflammation around the area of the cecum on the CT scan abdomen pelvis. All other 16 review of systems are negative except as per positive mentioned HPI. [facility] Medical History (Updated 12/07/21 @ 19:[address] Post Friend, DO) Anxiety Atherosclerotic heart disease of [place] coronary artery without angina pectoris Atrial fibrillation CAD (coronary artery disease) Carotid artery disease Cataract Cataract (lens) fragments in eye following cataract surgery, bilateral Chest pain Chronic cough Chronic headaches Chronic neck and back pain Cirrhosis Diabetes Essential hypertension Fatigue GERD (gastroesophageal reflux disease) History of coronary artery disease HLD (hyperlipidemia) Kidney stones Migraines Myocardial infarct Neuropathy Non-smoker NSTEMI (non-ST elevated myocardial infarction) Numbness and tingling in right hand Obstructive sleep apnea Pancreatitis Post traumatic stress disorder (PTSD) Restless legs syndrome Severe headache Type 2 diabetes mellitus Home Medications insulin aspart U-100 100 unit/mL (3 mL) subcutaneous pen 18 units subcut TIDCM high blood sugar 12/23/16 [History Last Taken 10/13/20] insulin glargine 100 unit/mL (3 mL) subcutaneous pen 40 units subcut BID high bl ood sugar 12/23/16 [History Last Taken 10/13/20] pyridoxine (vitamin B6) 100 mg tablet 100 mg PO DAILY supplement 12/23/16 [History Last Taken 12/05/21] therapeutic multivitamin 1 ea PO DAILY supplement 12/23/16 [History Last Taken 12/05/21] pregabalin 150 mg capsule 150 mg PO BID nerve pain 04/23/18 [History Last Taken 12/05/21] isosorbide mononitrate 30 mg tablet,extended release 24 hr 30 mg PO DAILY heart #90 tabs 07/13/18 [Rx Last Taken 10/12/20] nitroglycerin 0.4 mg sublingual tablet 0.4 mg sublingual Q5-15M PRN cp 12/26/18 [History Last Taken 1 Month Ago ~09/12/20] alirocumab 150 mg/mL subcutaneous pen injector 150 mg SQ .Q2WEEK 12/13/19 [History Last Taken 12/01/20] zolpidem 5 mg tablet (Ambien) 5 mg PO QHS PRN Sleep 10/13/20 [History Last Taken 3 Days Ago ~10/10/20] sgovjw-gbiadjbr-rwldezw 24,000-76,000-120,000 unit capsule,delayed rel (Creon) 3 cap PO TIDCM 10/14/20 [History Last Taken Unknown] albuterol sulfate 90 mcg/actuation aerosol inhaler (Ventolin HFA) 2 puff inhalation Q6H PRN Wheezing 08/25/21 [History Last Taken Unknown] benzonatate 200 mg capsule 200 mg PO TID PRN Cough 08/25/21 [History Last Taken Unknown] carbidopa 10 mg-levodopa 100 mg tablet 1 tab PO QHS 08/25/21 [History Last Taken 12/05/21] clotrimazole 1 % topical cream 1 applic topical BID 08/25/21 [History Last Taken Unknown] dicyclomine 20 mg tablet 20 mg PO TID PRN abdominal cramps 08/25/21 [History Last Taken Unknown] empagliflozin 25 mg tablet 25 mg PO DAILY 08/25/21 [History Last Taken Unknown] fluticasone furoate 50 mcg/actuation blister powder for inhalation 100 mcg inhalation DAILY 08/25/21 [History Last Taken Unknown] furosemide 20 mg tablet 40 mg PO DAILY 08/25/21 [History Last Taken Unknown] lactulose 10 gram/15 mL oral solution 10 g PO BID 08/25/21 [History Last Taken Unknown] lifitegrast 5 % eye drops in a dropperette 1 drp EACH EYE Q12H 08/25/21 [History Last Taken Unknown] mometasone 200 mcg/actuation HFA aerosol inhaler 2 puff inhalation BID 08/25/21 [History Last Taken Unknown] pantoprazole 40 mg tablet,delayed release 40 mg PO DAILY 08/25/21 [History Last Taken 12/05/21] spironolactone 50 mg tablet 50 mg PO DAILY 08/25/21 [History Last Taken 12/05/21] topiramate 50 mg tablet 50 mg PO DAILY 08/25/21 [History Last Taken 12/05/21] ammonium lactate 12 % lotion 1 applic topical DAILY 12/06/21 [History Last Taken Unknown] bacitracin 500 unit/gram topical ointment 1 applic topical TID 12/06/21 [History Last Taken Unknown] carboxymethylcellulose sodium 0.5 % eye drops 1 drp EACH EYE TID 12/06/21 [History Last Taken 12/05/21] carboxymethylcellulose sodium 1 % eye drops 1 drp EACH EYE BID 12/06/21 [History Last Taken Unknown] cholecalciferol (vitamin D3) 50 mcg (2,000 unit) chewable tablet 50 mcg PO DAILY 12/06/21 [History Last Taken 12/05/21] duloxetine 20 mg capsule,delayed release 20 mg PO DAILY 12/06/21 [History Last Taken Unknown] ferrous sulfate 325 mg (65 mg iron) tablet 325 mg PO DAILY 12/06/21 [History Last Taken Unknown] glucose 4 gram chewable tablet 4 g PO Q15M PRN Hypoglycemia 12/06/21 [History Last Taken Unknown] lanolin alcohols-mineral oil-w.petrolatum-ceresin topical cream (Eucerin topical cream) 1 applic topical DAILY PRN Dry Skin 12/06/21 [History Last Taken Unknown] lidocaine 4 % topical cream 1 applic topical TID PRN Skin Cleansing 12/06/21 [History Last Taken Unknown] rifaximin 550 mg tablet (Xifaxan) 550 mg PO BID 12/06/21 [History Last Taken 12/06/21] tramadol 50 mg tablet 50 mg PO Q6H PRN PRN Pain 12/06/21 [History Last Taken 12/05/21] Allergy/AdvReac Type Severity Reaction Status Date / Time oxycodone [From OxyContin] Allergy Shortness Verified 12/06/21 12:24 of breath atorvastatin [From Lipitor] AdvReac muscle Verified 12/06/21 12:24 weakness fish oil AdvReac muscle Verified 12/06/21 12:24 weakness morphine AdvReac MIGRAINE TAO Verified 12/06/21 12:24 Family History Mother Diabetes Heart disease Cancer Hypertension Father Diabetes Heart disease Hypertension CVA (cerebral vascular accident) Sister Ulcerative colitis Surgical History (Updated 12/06/21 @ 16:43 by Christine Ferrer) History of ankle surgery History of cholecystectomy History of coronary artery stent placement History of facial surgery Hx of CABG (~08/2017) S/P coronary artery stent placement (~07/05/18) Social History housing: house Smoking Status: Never smoker alcohol intake: never substance use type: does not use ROS Constitutional Constitutional: Reports chills, fatigue, malaise and weakness; Denies anorexia or fever(s) Eyes Eyes: Denies change in vision ENT HEENT: Denies dysphagia, nasal congestion or sore throat Cardiovascular Cardiovascular: Denies chest pain, dyspnea on exertion, edema, lightheadedness, orthopnea, palpitations, paroxysmal nocturnal dyspnea, rapid heart rate or syncope Respiratory/Chest Respiratory/Chest: Denies cough, dyspnea, productive cough, shortness of breath at rest or shortness of breath with exertion Gastrointestinal Gastrointestinal: Reports abdominal pain; Denies constipation, diarrhea, dyspepsia, hematemesis, hematochezia, nausea or vomiting Genitourinary Genitourinary: Denies burning urination or difficulty urinating Neurologic Neurologic: Denies confusion, dizziness, focal weakness, headache(s), numbness, seizure-like activity or syncope Psychiatric Psychiatric: Denies anxiety Endocrine Endocrinology: Denies change in body appearance Hematologic/Lymphatic Hematologic/Lymphatic: Denies anemia Physical Exam Narrative GENERAL: cooperative HEENT: Atraumatic; EYES; Anicteric, Normal Conjunctiva NECK; supple, normal thyroid, RESPIRATORY: Diminished to auscultation CARDIOVASCULAR: Regular S1 S2, GI: soft, normoactive bowel sounds, slightly distended : No Renal angle tenderness; EXTREMITIES: No edema, no clubbing, MUSCULOSKELETAL: no muscle wasting NEURO: Awake; no lateralizing signs. SKIN: No Rash PSYCH; Flat affect Lab / Micro Data Result Diagrams: 12/07/21 05:01 12/07/21 05:01 Labs: Laboratory Results - last 24 hr 12/06/21 21:06: POC Glucose 327 H 12/07/21 05:01: WBC 6.8, RBC 3.79 L, Hgb 9.9 L, Hct 31.6 L, MCV 83.4, MCH 26.1 L , MCHC 31.3 L, RDW Std Deviation 71.0 H, RDW Coeff of Angeline 23.2 H, Plt Count 98 L , MPV 11.1, Immature Gran % (Auto) 0.600, Neut % (Auto) 73.7 H, Lymph % (Auto) 16.7 L, [place] % (Auto) 7.6, Eos % (Auto) 1.0, Baso % (Auto) 0.4, Absolute Neuts (auto) 5.0, Absolute Lymphs (auto) 1.13, Nucleated RBC % 0, Platelet Estimate MOD DEC, Anisocytosis 2+ 12/07/21 05:01: Sodium 128 L, Potassium 3.9, Chloride 99, Carbon Dioxide 22.0, Anion Gap 7, BUN 22 H, Creatinine 1.26, Estim Creat Clear Calc 53.91, Est GFR (MDRD) Af Amer 72, Est GFR (MDRD) Non-Af 60, BUN/Creatinine Ratio 17.5, Glucose 298 H, Calcium 7.7 L, Total Bilirubin 1.10 H, AST 67 H, ALT 21, Alkaline Phosphatase 203 H, Total Protein 6.4, Albumin 1.6 L, Globulin 4.8 H, Albumin/Globulin Ratio 0.3 L 12/07/21 06:45: POC Glucose 245 H 12/07/21 11:30: POC Glucose 272 H 12/07/21 16:57: POC Glucose 261 H Charges/Coding Visit Charges Inpatient E&M: 21004 Init Hosp L3
[2021-12-07 19:20] VITALS: PULSE 80; RESP 12
[2021-12-07 21:27] VITALS: BP 131/65; PULSE 87; RESP 18; TEMP 36.7; O2SAT 95
[2021-12-07] MEDS: Carbidopa/Levodopa 10/100 Tablet PO (21:43)
[2021-12-07 22:11] LABS: Bedside Glucose 274 mg/dL (74-106)
[2021-12-08 03:40] VITALS: BP 132/59; PULSE 84; RESP 18; TEMP 36.4; O2SAT 94
[2021-12-08 05:55] LABS: Absolute Lymphocyte Count 1.42 X10^3/uL (0.83-4.51); Absolute Neutrophil Count 2.6 X10^3/uL (2.0-7.7); Basophil# 0.05 X10^3/uL; Eosinophil# 0.12 X10^3/uL; Eosinophils% 2.5 % (0-5); Hemoglobin 9.8 g/dL (13.0-16.5); Lymphocyte # 1.42 X10^3/ul (0.83-4.51); Lymphocyte % 29.4 % (19-41); Mean Corp Hgb Conc 31.6 g/dL (32-36); Mean Corpuscular Hgb 26.6 pg (27.0-32.0); Mean Platelet Vol. 11.4 fl (6.2-12.0); Monocyte# 0.55 X10^3/uL; Monocyte% 11.4 % (0-10); NRBC Flagged by Analyzer 0 % (0-5); Neutrophil # 2.62 X10^3/uL (2.7-7.7); Neutrophil % 54.3 % (47-70); POSITIVE MORPHOLOGY YES; Platelet Count 103 K/mm3 (150-450); RBC Distribution Width CV 23.2 % (11.6-14.6); RBC Distribution Width SD 71.2 fl (35.1-43.9); Red Blood Count 3.69 M/mm3 (4.6-6.2); White Blood Count 4.8 K/mm3 (4.4-11.0)
[2021-12-08 05:57] LABS: Differential Indicated SCAN CRITERIA MET
[2021-12-08 06:18] LABS: ALB/GLOB Ratio 0.3 RATIO (0.9-2.4); AST(SGOT) 66 U/L (15-37); Alanine Aminotransfer ALT/SGPT 20 U/L (16-61); Albumin, Serum 1.5 g/dL (3.2-5.0); Alkaline Phosphatase 224 U/L (45-117); Anion Gap 5 (5-15); BUN 24 mg/dL (7-18); BUN/Creat Ratio 21.8 RATIO (10-20); Chloride 100 mmol/L (98-107); EST Glomerular Filtration Rate 70 mL/min (>60); Est Glom Filt Rate - Afr Amer 84 mL/min (>60); Estimated Creatinine Clearance 61.76 ml/min; Globulin 4.9 g/dL (2.2-4.2); Glucose 252 mg/dL (74-106); Magnesium 2.3 mg/dL (1.6-2.6); Phosphorus 2.2 mg/dL (2.5-4.9); Potassium 3.8 mmol/L (3.5-5.1); Protein, Total 6.4 g/dL (6.4-8.2); Sodium Level 131 mmol/L (136-145)
[2021-12-08 06:21] LABS: Anisocytosis 2+
[2021-12-08] MEDS: Glycerin/Hypromellose/PEG400 15 ml Bottle 1 DRP EACH EYE ×2 (06:39→13:30)
[2021-12-08] MEDS: BACITRACIN 15 GM Tube 1 APPLIC TOPICAL (06:39)
[2021-12-08] MEDS: Insulin Lispro 100 UNIT/ML INSULN.PEN SC ×2 (06:40→11:23)
[2021-12-08 07:00] LABS: Bedside Glucose 209 mg/dL (74-106)
[2021-12-08] MEDS: Budesonide Respules 0.5 MG/2 ML AMPUL.NEB. INHALATION (07:14)
[2021-12-08 07:30] VITALS: PULSE 78; RESP 21
[2021-12-08 08:15] VITALS: BP 102/52; PULSE 73; RESP 18; TEMP 36.9; O2SAT 99
[2021-12-08] MEDS: Calcium Carb/Vitamin D 1 TABLET Tablet PO (08:19)
[2021-12-08] MEDS: Multivitamins,Therapeutic Tablet 1 TABLET PO (08:20)
[2021-12-08] MEDS: Ferrous Sulfate 325 MG Tablet PO (08:20)
[2021-12-08] MEDS: Creon 24,000 unit DR Capsule 3 CAP PO ×2 (08:20→11:24)
[2021-12-08] MEDS: 0.9% Saline Lock 10 ML Syringe IV (10:03)
[2021-12-08] MEDS: HYDROmorphone 1 MG/ML Syringe IV (10:03)
[2021-12-08] MEDS: Lactulose 20 GM/30 ML UDC 10 GM PO (10:12)
[2021-12-08] MEDS: Spironolactone 50 MG Tablet PO (10:12)
[2021-12-08] MEDS: Insulin Glargine-YFGN 100 UNIT/ML Pen 38 UNIT SC (10:13)
[2021-12-08] MEDS: Empagliflozin 25 MG Tablet PO (10:13)
[2021-12-08] MEDS: Pyridoxine HCl 100 MG Tablet PO (10:13)
[2021-12-08] MEDS: Isosorbide Mononitrate 30 MG Tablet PO (10:13)
[2021-12-08] MEDS: DULoxetine Hcl 20 MG Capsule PO (10:13)
[2021-12-08] MEDS: Cholecalciferol (VIT D3) 25 MCG TABLET (1,000 UNITS) 50 MCG PO (10:14)
[2021-12-08] MEDS: rifAXIMin 550 MG Tablet PO (10:15)
[2021-12-08] MEDS: Mesalamine 1.2 GM Tablet PO (10:15)
[2021-12-08] MEDS: Topiramate 50 MG Tablet PO (10:15)
[2021-12-08] MEDS: Pantoprazole Sodium 40 MG Tablet PO (10:15)
[2021-12-08] MEDS: Furosemide 40 MG Tablet PO (10:15)
[2021-12-08 10:16] LABS: Pathologist Comment/Body Fluid Reviewed
[2021-12-08] MEDS: Pregabalin 75 MG Capsule 150 MG PO (10:34)
[2021-12-08] MEDS: Ammonium Lactate 225 gm Bottle 1 APPLIC TOPICAL (10:34)
--- NOTE | 2021-12-08 11:54 | DCINST_ITS ---
Discharge Instructions Diet Discharge Diet: 1800 Calorie Control Diet Activity Discharge Activity: Return to Normal Activity Weight Bearing Status: Full weight bearing Follow Up Care Test Results: Test results from this visit will be discussed in further detail at your follow- up appointment, if applicable. Discharge Plan Admission Admit Date/Time: 12/06/21 16:37 Primary Reason for Your Visit: abdominal pain, cirrhosis Attending Provider: Enoch Navarro Primary Care Provider: Diam Tavarez Consulting Providers: [facility] ; [facility] ; Friend,Sincere ; Prabhu Israel Discharge Orders/Prescriptions Prescriptions: New carvedilol 3.125 mg tablet 3.125 mg PO BID Qty: 60 0RF Rx Instructions: must administer with a meal/food, one daily for seven days, then one twice a day hydrocodone-acetaminophen 5-325 mg tablet 1 tab PO Q6H PRN (Reason: pain) 7 Days Qty: 20 0RF Rx Instructions: do not take more than 4 per day Continued nitroglycerin 0.4 mg tablet, sublingual 0.4 mg SUBLINGUAL Q5-15M PRN (Reason: cp) therapeutic multivitamin 1 EACH tablet 1 ea PO DAILY Label Comments: supplement pyridoxine (vitamin B6) 100 MG tablet 100 mg PO DAILY Label Comments: supplement insulin aspart U-100 100 UNITS/ML insulin pen 18 units subcut TIDCM Label Comments: diabetes insulin glargine 100 UNITS/ML insulin pen 40 units subcut BID Label Comments: diabetes pregabalin 150 mg capsule 150 mg PO BID Label Comments: neuropathy alirocumab 150 MG/ML pen injector 150 mg SQ .Q2WEEK zolpidem [Ambien] 5 mg Tablet 5 mg PO QHS PRN (Reason: Sleep) Creon 24,000-76,000 -120,000 unit Capsule,Delayed Release(Dr/Ec) 3 cap PO TIDCM benzonatate 200 mg Capsule 200 mg PO TID PRN (Reason: Cough) dicyclomine 20 mg Tablet 20 mg PO TID PRN (Reason: abdominal cramps) pantoprazole 40 mg Tablet,Delayed Release (Dr/Ec) 40 mg PO DAILY carbidopa-levodopa 10-100 mg Tablet 1 tab PO QHS furosemide 20 mg Tablet 40 mg PO DAILY albuterol sulfate [Ventolin HFA] 90 mcg/actuation Hfa Aerosol Inhaler 2 puff INHALATION Q6H PRN (Reason: Wheezing) clotrimazole 1 % Cream 1 applic TOPICAL BID spironolactone 50 mg Tablet 50 mg PO DAILY topiramate 50 mg Tablet 50 mg PO DAILY empagliflozin 25 mg Tablet 25 mg PO DAILY mometasone 200 mcg/actuation Hfa Aerosol Inhaler 2 puff INHALATION BID lifitegrast 5 % Dropperette 1 drp EACH EYE Q12H fluticasone furoate 50 mcg/actuation Blister With Device 100 mcg INHALATION DAILY ammonium lactate 12 % Lotion 1 applic TOPICAL DAILY bacitracin 500 unit/gram Ointment 1 applic TOPICAL TID carboxymethylcellulose sodium 0.5 % Drops 1 drp EACH EYE TID Xifaxan 550 mg Tablet 550 mg PO BID cholecalciferol (vitamin D3) 50 mcg (2,000 unit) Tablet,Chewable 50 mcg PO DAILY carboxymethylcellulose sodium 1 % Drops 1 drp EACH EYE BID lidocaine 4 % Cream 1 applic TOPICAL TID PRN (Reason: Skin Cleansing) ferrous sulfate 325 mg (65 mg iron) Tablet 325 mg PO DAILY glucose 4 gram Tablet,Chewable 4 g PO Q15M PRN (Reason: Hypoglycemia) Rx Instructions: until symptoms of low blood sugar are controlled duloxetine 20 mg Capsule,Delayed Release(Dr/Ec) 20 mg PO DAILY Eucerin Cream 1 applic TOPICAL DAILY PRN (Reason: Dry Skin) isosorbide mononitrate 30 mg tablet extended release 24 hr 30 mg PO DAILY Qty: 90 3RF Changed lactulose 10 gram/15 mL Solution 10 g PO TID Qty: 237 0RF Discontinued tramadol 50 mg tablet 50 mg PO Q6H PRN PRN (Reason: Pain) Referrals / Follow Up: Dima Tavarez MD [Primary Care Provider] - Within 2 Weeks Estefania Coe MD [Med Staff - Active Staff] - See Referral Note (tomorrow) Justus Camargo MD [Non-Staff] - See Referral Note (within 2-3 weeks-call for appointment) Disposition Disposition (needs filled in before D/C Order can be placed): Home, Self Care
[2021-12-08 11:55] LABS: Bedside Glucose 207 mg/dL (74-106)
--- NOTE | 2021-12-08 12:52 | CASEMGMT ---
RN CM in to pt room, pt is not present. Pt states to call to see what nursing services are being set up. TC to pt , Julia, she states that it is palliative care. Discussed other homegoing services and she states she does not feel the patient needs at this time. Discussed [facility] nursing as well. Email to palliative care who report that patient has signed consents and they need to get a MEDICAL RADIATION THERAPIST out to see him.
[2021-12-08 13:29] VITALS: BP 115/62; PULSE 73; RESP 18; TEMP 36.6; O2SAT 99
[2021-12-08 14:47] VITALS: BP 127/70; PULSE 84; RESP 18; TEMP 36.3; O2SAT 94
== END 2021-12-08 15:00 | disposition home or self-care (01) | DRG 372 ==
LOC: ED 16:15 → MS3 17:02
PROVIDERS: Internal Medicine; Admitting Provider Student in an Organized Health Care Education/Training Program; Emergency Provider Emergency Medicine; PCP Family Medicine; Visit Provider Internal Medicine
DX: K65.2 Spontaneous bacterial peritonitis (principal); R18.8 Other ascites; E87.1 Hypo-osmolality and hyponatremia; K86.1 Other chronic pancreatitis; K72.90 Hepatic failure, unspecified without coma; D69.6 Thrombocytopenia, unspecified; D63.8 Anemia in other chronic diseases classified elsewhere; E11.40 Type 2 diabetes mellitus with diabetic neuropathy, unspecified; K74.60 Unspecified cirrhosis of liver; Z79.4 Long term (current) use of insulin; E11.65 Type 2 diabetes mellitus with hyperglycemia; I10 Essential (primary) hypertension; K75.81 Nonalcoholic steatohepatitis (NASH); I25.10 Atherosclerotic heart disease of native coronary artery without angina pectoris; E78.5 Hyperlipidemia, unspecified; G25.81 Restless legs syndrome; I25.2 Old myocardial infarction; Z90.49 Acquired absence of other specified parts of digestive tract; Z95.1 Presence of aortocoronary bypass graft; Z95.5 Presence of coronary angioplasty implant and graft; Z79.899 Other long term (current) drug therapy
CPT/HCPCS: 36415; 49083; 74177; 80048; 80053; 80076; 82945; 82962; 83615; 83690; 83735; 84100; 84157; 85025; 85610; 85730; 87040; 88108; 88305; 88313; 89050; 94640; 97161; 99284; J7030; J7050; Q9967; A4216; J2405

== ENCOUNTER → 2021-12-13 | Outpatient (CLI) | payer MEDICARE, SELFPAY ==
[2018-03-21 13:40] VITALS: BMI 31.6
--- NOTE | 2021-12-13 12:02 | US_ITS ---
PROCEDURE: Ultrasound guided paracentesis. DATE OF EXAMINATION: 12/13/2021. INDICATION: Male, 71 years old. Ascites. PHYSICIAN: Checo Ball M.D. TECHNIQUE: The risks, benefits, and alternatives to the procedure were explained to the patient. The specific risks of bleeding, infection, and damage to bowel were detailed and accepted. Witnessed informed consent was obtained. The abdomen was ultrasonographically surveyed. An appropriate pocket of fluid was identified at the right lower quadrant. The skin were cleaned and prepped in the usual sterile fashion. Using ultrasound guidance, the peritoneal cavity was accessed with a 5-[place]er paracentesis needle/catheter system. The trocar was removed. A total of 4600 ml of velia-colored fluid were removed from the peritoneal cavity. The catheter was removed and a sterile dressing was applied. The procedure was well tolerated. US/Paracentesis with US IMPRESSION: Ultrasound guided paracentesis. Electronically Signed: Checo Ball MD at 13:24 EDT ,
[2021-12-13 12:18] VITALS: BP 115/57; BP 97/40; PULSE 69; PULSE 70; RESP 18; RESP 20; TEMP 36.4; O2SAT 100; O2SAT 98
[2021-12-13] MEDS: Lidocaine 2% (10 ml mdv) 10 ML Vial INFILT (12:18)
== END | disposition home or self-care (01) ==
LOC: US 12:00
PROVIDERS: PCP Family Medicine; Referring Provider Internal Medicine Gastroenterology; Visit Provider Internal Medicine Gastroenterology
DX: K74.60 Unspecified cirrhosis of liver (principal); R18.8 Other ascites
CPT/HCPCS: 49083

== ENCOUNTER → 2021-12-23 | Outpatient (CLI) | payer MEDICARE, SELFPAY ==
[2018-03-21 13:40] VITALS: BMI 31.6
--- NOTE | 2021-12-23 10:05 | US_ITS ---
PROCEDURE: Ultrasound guided paracentesis. DATE OF EXAMINATION: 12/23/2021. INDICATION: Male, 71 years old. Ascites. PHYSICIAN: Checo Ball M.D. TECHNIQUE: The risks, benefits, and alternatives to the procedure were explained to the patient. The specific risks of bleeding, infection, and damage to bowel were detailed and accepted. Witnessed informed consent was obtained. The abdomen was ultrasonographically surveyed. An appropriate pocket of fluid was identified at the right lower quadrant. The skin were cleaned and prepped in the usual sterile fashion. Using ultrasound guidance, the peritoneal cavity was accessed with a 5-Liberian paracentesis needle/catheter system. The trocar was removed. A total of 6200 ml of velia-colored fluid were removed from the peritoneal cavity. The catheter was removed and a sterile dressing was applied. The procedure was well tolerated. US/Paracentesis with US IMPRESSION: Ultrasound guided paracentesis. Electronically Signed: Checo Ball MD at 12:29 EDT ,
[2021-12-23 10:15] VITALS: BP 102/51; BP 105/59; BP 106/62; BP 107/59; BP 108/56; BP 110/59; BP 86/37; BP 98/49; PULSE 71; PULSE 72; PULSE 73; PULSE 74; PULSE 75; RESP 16; RESP 18; TEMP 37; O2SAT 97; O2SAT 98; O2SAT 99
[2021-12-23] MEDS: Lidocaine 2% (10 ml mdv) 10 ML Vial INFILT (10:22)
== END | disposition home or self-care (01) ==
LOC: US 10:03
PROVIDERS: PCP Family Medicine; Referring Provider Internal Medicine Gastroenterology; Visit Provider Internal Medicine Gastroenterology
DX: K74.60 Unspecified cirrhosis of liver (principal); R18.8 Other ascites
CPT/HCPCS: 49083

== ENCOUNTER → 2021-12-30 | Outpatient (CLI) | payer MEDICARE, SELFPAY ==
[2018-03-21 13:40] VITALS: BMI 31.6
--- NOTE | 2021-12-30 08:10 | US_ITS ---
PROCEDURE: Ultrasound guided paracentesis. DATE OF EXAMINATION: 12/30/2021. INDICATION: Male, 71 years old. Ascites. PHYSICIAN: Checo Ball M.D. TECHNIQUE: The risks, benefits, and alternatives to the procedure were explained to the patient. The specific risks of bleeding, infection, and damage to bowel were detailed and accepted. Witnessed informed consent was obtained. The abdomen was ultrasonographically surveyed. An appropriate pocket of fluid was identified at the right lower quadrant. The skin were cleaned and prepped in the usual sterile fashion. Using ultrasound guidance, the peritoneal cavity was accessed with a 5-[place]isian paracentesis needle/catheter system. The trocar was removed. A total of 4600 ml of velia-colored fluid were removed from the peritoneal cavity. The catheter was removed and a sterile dressing was applied. The procedure was well tolerated. US/Paracentesis with US IMPRESSION: Ultrasound guided paracentesis. Electronically Signed: Checo Ball MD at 9:23 EDT ,
[2021-12-30 08:28] VITALS: BP 103/48; BP 106/47; BP 108/51; BP 112/51; BP 98/40; PULSE 71; PULSE 72; PULSE 73; PULSE 74; RESP 16; TEMP 36.6; O2SAT 100; O2SAT 98; O2SAT 99
[2021-12-30] MEDS: Lidocaine 2% (10 ml mdv) 10 ML Vial INFILT (08:28)
[2021-12-30 09:58] LABS: Anion Gap 8 (5-15); BUN 19 mg/dL (7-18); BUN/Creat Ratio 16.2 RATIO (10-20); Calcium,Total 8.6 mg/dL (8.5-10.1); Chloride 102 mmol/L (98-107); Creatinine, Serum 1.17 mg/dL (0.70-1.30); EST Glomerular Filtration Rate 65 mL/min (>60); Est Glom Filt Rate - Afr Amer 78 mL/min (>60); Glucose 332 mg/dL (74-106); Potassium 3.9 mmol/L (3.5-5.1); Sodium Level 134 mmol/L (136-145)
== END | disposition home or self-care (01) ==
LOC: US 08:08
PROVIDERS: PCP Family Medicine; Referring Provider Internal Medicine Gastroenterology; Visit Provider Internal Medicine Gastroenterology
DX: R18.8 Other ascites (principal); Z79.899 Other long term (current) drug therapy
CPT/HCPCS: 49083; 80048

== ENCOUNTER → 2022-01-05 | Outpatient (CLI) | payer MEDICARE, SELFPAY ==
[2018-03-21 13:40] VITALS: BMI 31.6
--- NOTE | 2022-01-05 12:36 | US_ITS ---
PROCEDURE: ULTRASOUND GUIDED PARACENTESIS INDICATION: Male, 71 years old. PROCEDURE -- Ascites PHYSICIAN: Radha Tsang MD INFORMED CONSENT: The risks, benefits, and alternatives to the procedure were explained to the patient. The specific risks of bleeding, infection, and damage to bowel were detailed and accepted. Witnessed informed consent was obtained. TECHNIQUES: The abdomen was ultrasonographically surveyed. An appropriate pocket of fluid was identified at the right lower quadrant. The skin was cleaned and prepped in the usual sterile fashion. Using ultrasound guidance, the peritoneal cavity was accessed with a 5-Wolof paracentesis needle/catheter system. The trocar was removed. A total of 3900 ml of straw-colored ascitic fluid was removed from the peritoneal cavity. The catheter was removed and a sterile dressing was applied. The procedure was well tolerated. # of Images: 10 US/Paracentesis with US IMPRESSION: Ultrasound guided paracentesis. Electronically Signed: Jase Tsang MD at 16:08 EDT ,
[2022-01-05 14:46] VITALS: BP 105/54; BP 109/51; BP 121/56; BP 122/58; BP 123/50; PULSE 61; PULSE 64; PULSE 66; RESP 20; RESP 22; TEMP 36.4; O2SAT 95; O2SAT 97; O2SAT 98; O2SAT 99
[2022-01-05 16:25] LABS: Anion Gap 8 (5-15); BUN 18 mg/dL (7-18); BUN/Creat Ratio 15.8 RATIO (10-20); Calcium,Total 8.5 mg/dL (8.5-10.1); Chloride 99 mmol/L (98-107); Creatinine, Serum 1.14 mg/dL (0.70-1.30); EST Glomerular Filtration Rate 67 mL/min (>60); Est Glom Filt Rate - Afr Amer 81 mL/min (>60); Glucose 459 mg/dL (74-106); Potassium 4.3 mmol/L (3.5-5.1); Sodium Level 131 mmol/L (136-145)
== END | disposition home or self-care (01) ==
PROVIDERS: PCP Family Medicine; Referring Provider Internal Medicine Gastroenterology; Visit Provider Internal Medicine Gastroenterology
DX: R18.8 Other ascites (principal); Z79.899 Other long term (current) drug therapy
CPT/HCPCS: 49083; 80048

== ENCOUNTER → 2022-01-12 | Outpatient (CLI) | payer MEDICARE, SELFPAY ==
[2018-03-21 13:40] VITALS: BMI 31.6
--- NOTE | 2022-01-12 08:09 | US_ITS ---
PROCEDURE: Ultrasound guided paracentesis. DATE OF EXAMINATION: 01/12/2022. INDICATION: Male, 71 years old. Ascites. PHYSICIAN: Checo Ball M.D. TECHNIQUE: The risks, benefits, and alternatives to the procedure were explained to the patient. The specific risks of bleeding, infection, and damage to bowel were detailed and accepted. Witnessed informed consent was obtained. The abdomen was ultrasonographically surveyed. An appropriate pocket of fluid was identified at the left lower quadrant. The skin were cleaned and prepped in the usual sterile fashion. Using ultrasound guidance, the peritoneal cavity was accessed with a 5-Arabic paracentesis needle/catheter system. The trocar was removed. A total of 4650 ml of velia-colored fluid were removed from the peritoneal cavity. The catheter was removed and a sterile dressing was applied. The procedure was well tolerated. US/Paracentesis with US IMPRESSION: Ultrasound guided paracentesis. Electronically Signed: Checo Ball MD at 13:41 EDT ,
[2022-01-12 12:40] VITALS: BP 100/55; BP 103/49; BP 103/55; BP 115/58; PULSE 71; PULSE 74; PULSE 77; RESP 18; TEMP 36.7; O2SAT 96; O2SAT 98; O2SAT 99
[2022-01-12] MEDS: Lidocaine 2% (10 ml mdv) 10 ML Vial INFILT (12:45)
[2022-01-12 13:37] LABS: Hematocrit 35.2 % (40-54); Hemoglobin 10.9 g/dL (13.0-16.5); Mean Corpuscular Hgb 25.6 pg (27.0-32.0); Mean Corpuscular Volume 82.6 fL (80-94); POSITIVE MORPHOLOGY YES; Platelet Count 114 K/mm3 (150-450); RBC Distribution Width CV 21.3 % (11.6-14.6); RBC Distribution Width SD 64.3 fl (35.1-43.9); Red Blood Count 4.26 M/mm3 (4.6-6.2); White Blood Count 7.1 K/mm3 (4.4-11.0)
[2022-01-12 13:40] LABS: Anion Gap 5 (5-15); BUN 13 mg/dL (7-18); BUN/Creat Ratio 12.7 RATIO (10-20); Calcium,Total 8.2 mg/dL (8.5-10.1); Chloride 105 mmol/L (98-107); Creatinine, Serum 1.02 mg/dL (0.70-1.30); EST Glomerular Filtration Rate 76 mL/min (>60); Est Glom Filt Rate - Afr Amer 92 mL/min (>60); Glucose 356 mg/dL (74-106); Potassium 3.7 mmol/L (3.5-5.1); Sodium Level 136 mmol/L (136-145)
[2022-01-12 14:21] LABS: Scan Indicated on CBC? Y/N YES- FLAGS NOTED
== END | disposition home or self-care (01) ==
PROVIDERS: PCP Family Medicine; Referring Provider Internal Medicine Gastroenterology; Visit Provider Internal Medicine Gastroenterology
DX: R18.8 Other ascites (principal)
CPT/HCPCS: 49083; 80048; 85027

== ENCOUNTER → 2022-01-19 | Outpatient (CLI) | payer OTHER, SELFPAY ==
[2018-03-21 13:40] VITALS: BMI 31.6
--- NOTE | 2022-01-19 08:16 | US_ITS ---
PROCEDURE: Ultrasound guided paracentesis. DATE OF EXAMINATION: 01/19/2022. INDICATION: Male, 71 years old. Ascites. PHYSICIAN: Checo Ball M.D. TECHNIQUE: The risks, benefits, and alternatives to the procedure were explained to the patient. The specific risks of bleeding, infection, and damage to bowel were detailed and accepted. Witnessed informed consent was obtained. The abdomen was ultrasonographically surveyed. An appropriate pocket of fluid was identified at the right lower quadrant. The skin were cleaned and prepped in the usual sterile fashion. Using ultrasound guidance, the peritoneal cavity was accessed with a 5-Ukrainian paracentesis needle/catheter system. The trocar was removed. A total of 4150 ml of velia-colored fluid were removed from the peritoneal cavity. The catheter was removed and a sterile dressing was applied. The procedure was well tolerated. US/Paracentesis with US IMPRESSION: Ultrasound guided paracentesis. Electronically Signed: Checo Ball MD at 9:29 EDT ,
[2022-01-19 08:30] VITALS: BP 104/52; BP 105/49; BP 107/50; BP 113/56; PULSE 75; PULSE 76; PULSE 77; RESP 18; RESP 20; TEMP 36.6; O2SAT 96; O2SAT 97
[2022-01-19] MEDS: Lidocaine 2% (10 ml mdv) 10 ML Vial INFILT (08:39)
== END | disposition home or self-care (01) ==
PROVIDERS: PCP Family Medicine; Referring Provider Internal Medicine Gastroenterology; Visit Provider Internal Medicine Gastroenterology
DX: R18.8 Other ascites (principal)
CPT/HCPCS: 49083

== ENCOUNTER 2022-01-23 20:01 | Inpatient (IN) | payer OTHER, SELFPAY ==
[2018-03-21 13:40] VITALS: BMI 31.6
[2022-01-23 20:01] VITALS: BP 101/63; PULSE 76; RESP 17; TEMP 36.3; O2SAT 96; BMI 25.9
--- NOTE | 2022-01-23 20:23 | CT_ITS ---
STUDY: CT CERVICAL SPINE WITHOUT CONTRAST REASON FOR EXAM: Male, 71 years old. Fall at 4:00 AM today. Lethargy. History of diabetes, cirrhosis and atrial fibrillation. RADIATION DOSAGE (If Supplied By Facility): CTDIvol = ( 22.27 ) mGy, DLP = ( 471.30 ) mGycm TECHNIQUE: High resolution transaxial imaging was performed without contrast material. Sagittal and coronal images were reconstructed. Individualized dose optimization techniques were used for this CT. COMPARISON: None FINDINGS: Normal craniovertebral junction. There are degenerative changes of the anterior atlantoaxial articulation. Normal odontoid process. Normal cervical lordosis. Normal vertebral bodies and posterior osseous elements. C2-3: Normal endplates. Normal disc height and morphology. Arthrosis of the right facet. The left appears fused. Normal central canal and intervertebral neuroforamina. C3-4: Normal endplates. Normal disc height and morphology. Mild arthrosis of the facet joints. Normal central canal and intervertebral neuroforamina. C4-5: Normal endplates. Normal disc height and morphology. Arthrosis of the facet joints, left greater than right Normal central canal and intervertebral neuroforamina. C5-6: Normal endplates. Normal disc height and morphology. Normal central canal and intervertebral neuroforamina. C6-7: Normal endplates. Normal disc height and morphology. Normal central canal and intervertebral neuroforamina. C7-T1: Normal endplates. Normal disc height and morphology. Normal central canal and intervertebral neuroforamina. Normal visualized soft tissue structures. CT/Spine Cervical without Contras IMPRESSION: Degenerative changes of the cervical spine. No acute fracture or subluxation. Note: MRI is more sensitive than CT in detecting cord injury, ligamentous injury and epidural hematoma. If there is continued clinical concern for any of these entities, MRI should be considered. Electronically Signed: Raul Gibson DO at 21:22 EDT Reading Location ID and State: [id number] Tel [phone], Service support ,
--- NOTE | 2022-01-23 20:23 | EKG12_ITS ---
Test Reason : DYSRHYTHMIA Blood Pressure : / mmHG Vent. Rate : 071 BPM Atrial Rate : 071 BPM P-R Int : 170 ms QRS Dur : 100 ms QT Int : 426 ms P-R-T Axes : 034 -20 022 degrees QTc Int : 462 ms Normal sinus rhythm Normal ECG Confirmed by RAY REYNA, BATSHEVA ([id number]), medical transcription editor GENEVA VERA ([id number]) on 01/24/2022 9:37:19 AM Referred By: Confirmed By:BATSHEVA BELL MD
--- NOTE | 2022-01-23 20:23 | CT_ITS ---
INDICATION: fall EXAMINATION: CT BRAIN - CT Head or Brain W/O Contrast Injection TECHNIQUE: Multiple axial images were obtained of the head without intravenous contrast. A radiation dose optimization technique was used for this scan. IV Contrast dosage and agent: None. COMPARISON: 12/30/[address] FINDINGS: BRAIN PARENCHYMA: No intra- or extra-axial hemorrhage. No intracranial mass or mass effect. Brooks/white matter differentiation is maintained and there is no blurring of the basal ganglia. There is no hyperdense vessel. Significant intimal calcifications involving the bilateral cavernous carotid arteries and intracranial vertebral arteries, left greater than right. Posterior fossa structures are unremarkable. CSF SPACES: Appropriate for age. No hydrocephalus. Basal cisterns are patent. CALVARIUM, SKULL BASE, PARANASAL SINUSES AND MASTOID AIR CELLS: Small amount of debris in the posterior sphenoid sinus with otherwise clear paranasal sinuses. Patient is status post prior left maxillary fracture with internal fixation plate. No discrete lytic or blastic abnormalities. ORBITS: Both globes, extraocular muscles, optic nerves and retrobulbar fat appear unremarkable. Absent bilateral lenses are absent. ASPECTS Score for Acute Strokes: 10 CT/Brain/Head without Contrast IMPRESSION: Negative Brain CT without contrast. Electronically Signed: Tramaine Bradley DO at 21:39 EDT ,
--- NOTE | 2022-01-23 20:36 | EX.ED.DYSGE1 ---
HPI History of Present Illness Chief Complaint: Alt LOC Informant: spouse/S.O. and family Narrative Narrative: 71-year-old male presenting with altered mental status. Patient had a fall approximately 4 AM. states she noticed blood on his left arm but does not know where he fell or the events surrounding the fall. He has had decreased level of consciousness today. He has been sleeping and difficult to arouse. He normally takes Dilaudid for chronic pain but has not had taken his evening dose due to sleepiness. He is in hospice for nonalcoholic cirrhosis. He has a paracentesis every 7 days. Plan for upcoming drain to be placed. Prior similar symptoms: Yes Recent Illness/Hospitalization: Yes [facility] Medical History Anxiety Atherosclerotic heart disease of [place] coronary artery without angina pectoris Atrial fibrillation CAD (coronary artery disease) Carotid artery disease Cataract Cataract (lens) fragments in eye following cataract surgery, bilateral Chest pain Chronic cough Chronic headaches Chronic neck and back pain Cirrhosis Diabetes Essential hypertension Fatigue GERD (gastroesophageal reflux disease) History of coronary artery disease HLD (hyperlipidemia) Kidney stones Migraines Myocardial infarct Neuropathy Non-smoker NSTEMI (non-ST elevated myocardial infarction) Numbness and tingling in right hand Obstructive sleep apnea Pancreatitis Post traumatic stress disorder (PTSD) Restless legs syndrome Severe headache Type 2 diabetes mellitus Home Medications insulin aspart U-100 100 unit/mL (3 mL) subcutaneous pen 18 units subcut TIDCM high blood sugar 12/23/16 [History Last Taken 10/13/20] insulin glargine 100 unit/mL (3 mL) subcutaneous pen 40 units subcut BID high blood sugar 12/23/16 [History Last Taken 10/13/20] isosorbide mononitrate 30 mg tablet,extended release 24 hr 30 mg PO DAILY heart #90 tabs 07/13/18 [Rx Last Taken 10/12/20] nitroglycerin 0.4 mg sublingual tablet 0.4 mg sublingual Q5-15M PRN cp 12/26/18 [History Last Taken 1 Month Ago ~09/12/20] zolpidem 5 mg tablet (Ambien) 5 mg PO QHS PRN Sleep 10/13/20 [History Last Taken 3 Days Ago ~10/10/20] albuterol sulfate 90 mcg/actuation aerosol inhaler (Ventolin HFA) 2 puff inhalation Q6H PRN Wheezing 08/25/21 [History Last Taken Unknown] benzonatate 200 mg capsule 200 mg PO TID PRN Cough 08/25/21 [History Last Taken Unknown] carbidopa 10 mg-levodopa 100 mg tablet 1 tab PO QHS 08/25/21 [History Last Taken 12/05/21] clotrimazole 1 % topical cream 1 applic topical BID 08/25/21 [History Last Taken Unknown] dicyclomine 20 mg tablet 20 mg PO TID PRN abdominal cramps 08/25/21 [History Last Taken Unknown] empagliflozin 25 mg tablet 25 mg PO DAILY 08/25/21 [History Last Taken Unknown] furosemide 20 mg tablet 40 mg PO DAILY 08/25/21 [History Last Taken Unknown] lifitegrast 5 % eye drops in a dropperette 1 drp EACH EYE Q12H 08/25/21 [History Last Taken Unknown] spironolactone 50 mg tablet 50 mg PO DAILY 08/25/21 [History Last Taken 12/05/21] ammonium lactate 12 % lotion 1 applic topical DAILY 12/06/21 [History Last Taken Unknown] bacitracin 500 unit/gram topical ointment 1 applic topical TID 12/06/21 [History Last Taken Unknown] carboxymethylcellulose sodium 0.5 % eye drops 1 drp EACH EYE TID 12/06/21 [History Last Taken 12/05/21] duloxetine 20 mg capsule,delayed release 20 mg PO DAILY 12/06/21 [History Last Taken Unknown] glucose 4 gram chewable tablet 4 g PO Q15M PRN Hypoglycemia 12/06/21 [History Last Taken Unknown] lanolin alcohols-mineral oil-w.petrolatum-ceresin topical cream (Eucerin topical cream) 1 applic topical DAILY PRN Dry Skin 12/06/21 [History Last Taken Unknown] lidocaine 4 % topical cream 1 applic topical TID PRN Skin Cleansing 12/06/21 [History Last Taken Unknown] rifaximin 550 mg tablet (Xifaxan) 550 mg PO BID 12/06/21 [History Last Taken 12/06/21] carvedilol 3.125 mg tablet 3.125 mg PO BID #60 tabs 12/08/21 [Rx Last Taken Unknown] bisacodyl 10 mg rectal suppository 10 mg RI DAILY PRN Constipation 01/23/22 [History Last Taken Unknown] haloperidol lactate 2 mg/mL oral concentrate 0.5 mg PO Q6H PRN PRN Nausea 01/23/22 [History Last Taken Unknown] hydromorphone 2 mg tablet (Dilaudid) 2 mg PO Q6H PRN Pain 01/23/22 [History Last Taken Unknown] hyoscyamine sulfate 0.125 mg tablet (Levsin) 0.125 mg PO DAILY PRN . 01/23/22 [History Last Taken Unknown] lorazepam 0.5 mg tablet (Ativan) 0.5 mg PO DAILY PRN Anxiety 01/23/22 [History Last Taken Unknown] prochlorperazine maleate 10 mg tablet 10 mg PO BID PRN Nausea 01/23/22 [History Last Taken Unknown] Allergy/AdvReac Type Severity Reaction Status Date / Time oxycodone [From OxyContin] Allergy Shortness Verified 01/23/22 20:04 of breath atorvastatin [From Lipitor] AdvReac muscle Verified 01/23/22 20:04 weakness fish oil AdvReac muscle Verified 01/23/22 20:04 weakness morphine AdvReac MIGRAINE TAO Verified 01/23/22 20:04 Family History Mother Diabetes Heart disease Cancer Hypertension Father Diabetes Heart disease Hypertension CVA (cerebral vascular accident) Sister Ulcerative colitis Surgical History History of ankle surgery History of cholecystectomy History of coronary artery stent placement History of facial surgery Hx of CABG (~08/2017) S/P coronary artery stent placement (~07/05/18) Social History housing: house Smoking Status: Never smoker alcohol intake: never substance use type: does not use ROS ROS ED Review of Systems ROS Unobtainable: due to mental status Constitutional Constitutional ED: Denies fever(s) EXAM Physical Exam Const Vital Signs: 01/23/22 20:01 01/23/22 20:33 01/23/22 22:25 Temperature 97.3 F L Temperature Source Temporal Pulse Rate 76 74 Respiratory Rate 17 15 Blood Pressure 101/63 106/59 L Blood Pressure Mean 75 74 Pulse Ox 96 98 Oxygen Delivery Method Nasal Cannula Room Air Nasal Cannula Oxygen Flow Rate (L/min) 2 Positive well nourished and well developed General Appearance ED: well developed HEENT Reports moist mucous membranes Eyes Eyes Narrative: pinpoint equal pupils Neck Neck Narrative: no midline tenderness Resp normal respiratory effort and clear to auscultation bilaterally Cardio regular rate and regular rhythm GI GI Narrative: diffuse tenderness with no rebound or guarding Inspection: abdominal distention Extremity Extremity Narrative: left forearm skin tear, no active bleeding Neuro Neuro Narrative: opens eyes to voice Sensorium / Orientation: lethargic MDM MDM MDM Narrative Medical decision making narrative: CBC shows hemoglobin 11.2, platelet 112. Chemistries show AST 54, alk phos 180, ammonia 56. Glucose 62. Patient was given D50. He was given Dilaudid IV. Chest x-ray read by myself and radiology shows fracture anterior left sixth rib. CT head and cervical spine show no acute process. Hospice nurse is at bedside. Discussed with hospitalist. Patient is unable to go home as his home is not currently set up with a hospital bed and family is not able to care for him at this time. Lab Data Attestation: I reviewed the patient's lab results. Labs: Laboratory Results - last 24 hr 01/23/22 01/23/22 01/23/22 20:32 20:32 20:32 WBC 8.2 RBC 4.44 L Hgb 11.2 L Hct 36.5 L MCV 82.2 MCH 25.2 L MCHC 30.7 L RDW Std Deviation 61.5 H RDW Coeff of Angeline 20.6 H Plt Count 112 L MPV 11.4 Immature Gran % (Auto) 1.600 H Neut % (Auto) 53.2 Lymph % (Auto) 29.4 [place] % (Auto) 12.6 H Eos % (Auto) 2.3 Baso % (Auto) 0.9 Absolute Neuts (auto) 4.3 Absolute Lymphs (auto) 2.40 Nucleated RBC % 0 Differential Comment SCANNED Anisocytosis 1+ Sodium 137 Potassium 3.7 Chloride 104 Carbon Dioxide 27.0 Anion Gap 6 BUN 22 H Creatinine 1.00 Estim Creat Clear Calc 67.93 Est GFR (MDRD) Af Amer 95 Est GFR (MDRD) Non-Af 78 BUN/Creatinine Ratio 22.1 H Glucose 62 L Calcium 8.3 L Total Bilirubin 0.80 AST 54 H ALT 28 Alkaline Phosphatase 180 H Ammonia 56.0 H Total Protein 6.9 Albumin 1.7 L Globulin 5.2 H Albumin/Globulin Ratio 0.3 L POC Glucose 01/23/22 22:48 WBC RBC Hgb Hct MCV MCH MCHC RDW Std Deviation RDW Coeff of Angeline Plt Count MPV Immature Gran % (Auto) Neut % (Auto) Lymph % (Auto) [place] % (Auto) Eos % (Auto) Baso % (Auto) Absolute Neuts (auto) Absolute Lymphs (auto) Nucleated RBC % Differential Comment Anisocytosis Sodium Potassium Chloride Carbon Dioxide Anion Gap BUN Creatinine Estim Creat Clear Calc Est GFR (MDRD) Af Amer Est GFR (MDRD) Non-Af BUN/Creatinine Ratio Glucose Calcium Total Bilirubin AST ALT Alkaline Phosphatase Ammonia Total Protein Albumin Globulin Albumin/Globulin Ratio POC Glucose 80 Radiography Chest X-Ray - ED: 1 View, Read by ED Physician, Read by Radiologist and Left Rib Fx Diagnostic Testing: Clinical Impression(s) from Imaging Studies Brain CT 01/23/22 20:23 IMPRESSION: Negative Brain CT without contrast. Electronically Signed: Tramaine Bradley DO at 21:39 EDT , Cervical Spine CT 01/23/22 20:23 IMPRESSION: Degenerative changes of the cervical spine. No acute fracture or subluxation. Note: MRI is more sensitive than CT in detecting cord injury, ligamentous injury and epidural hematoma. If there is continued clinical concern for any of these entities, MRI should be considered. Electronically Signed: Raul Gibson DO at 21:22 EDT Reading Location ID and State: [employer] / [place] Tel [phone], Service support , Ribs w/Chest X-Ray 01/23/22 20:50 IMPRESSION: RIBS: Fracture of the anterolateral left sixth rib. CHEST: No acute cardiopulmonary disease or major interval change. Electronically Signed: Raul Gibson DO at 21:26 EDT Reading Location ID and State: [employer] / [place] Tel [phone], Service support , EKG Initial EKG: Attestation: I personally reviewed and interpreted this EKG as follows: Interpretation: Sinus Rhythm and No Acute Injury Pattern Prior: Unchanged Discharge Plan Triage Chief Complaint: Alt LOC ED Provider: Jazmin Cassidy Dx/Rx/DC Orders Clinical Impression: Altered mental status, Hyperammonemia, Hypoglycemia, Left rib fracture Prescriptions: No Action nitroglycerin 0.4 mg tablet, sublingual 0.4 mg SUBLINGUAL Q5-15M PRN (Reason: cp) insulin aspart U-100 100 UNITS/ML insulin pen 18 units subcut TIDCM Label Comments: diabetes insulin glargine 100 UNITS/ML insulin pen 40 units subcut BID Label Comments: diabetes zolpidem [Ambien] 5 mg Tablet 5 mg PO QHS PRN (Reason: Sleep) benzonatate 200 mg Capsule 200 mg PO TID PRN (Reason: Cough) dicyclomine 20 mg Tablet 20 mg PO TID PRN (Reason: abdominal cramps) carbidopa-levodopa 10-100 mg Tablet 1 tab PO QHS furosemide 20 mg Tablet 40 mg PO DAILY albuterol sulfate [Ventolin HFA] 90 mcg/actuation Hfa Aerosol Inhaler 2 puff INHALATION Q6H PRN (Reason: Wheezing) clotrimazole 1 % Cream 1 applic TOPICAL BID spironolactone 50 mg Tablet 50 mg PO DAILY empagliflozin 25 mg Tablet 25 mg PO DAILY lifitegrast 5 % Dropperette 1 drp EACH EYE Q12H ammonium lactate 12 % Lotion 1 applic TOPICAL DAILY bacitracin 500 unit/gram Ointment 1 applic TOPICAL TID carboxymethylcellulose sodium 0.5 % Drops 1 drp EACH EYE TID Xifaxan 550 mg Tablet 550 mg PO BID lidocaine 4 % Cream 1 applic TOPICAL TID PRN (Reason: Skin Cleansing) glucose 4 gram Tablet,Chewable 4 g PO Q15M PRN (Reason: Hypoglycemia) Rx Instructions: until symptoms of low blood sugar are controlled duloxetine 20 mg Capsule,Delayed Release(Dr/Ec) 20 mg PO DAILY Eucerin Cream 1 applic TOPICAL DAILY PRN (Reason: Dry Skin) carvedilol 3.125 mg tablet 3.125 mg PO BID Qty: 60 0RF Rx Instructions: must administer with a meal/food, one daily for seven days, then one twice a day prochlorperazine maleate 10 mg Tablet 10 mg PO BID PRN (Reason: Nausea) hydromorphone [Dilaudid] 2 mg Tablet 2 mg PO Q6H PRN (Reason: Pain) lorazepam [Ativan] 0.5 mg Tablet 0.5 mg PO DAILY PRN (Reason: Anxiety) bisacodyl 10 mg Suppository 10 mg RI DAILY PRN (Reason: Constipation) hyoscyamine sulfate [Levsin] 0.125 mg Tablet 0.125 mg PO DAILY PRN (Reason: .) haloperidol lactate 2 mg/mL Concentrate 0.5 mg PO Q6H PRN PRN (Reason: Nausea) isosorbide mononitrate 30 mg tablet extended release 24 hr 30 mg PO DAILY Qty: 90 3RF Primary Care Provider: Dima Tavarez Referrals: Dima Tavarez MD [Primary Care Provider] - Disposition Disposition: Acute Care Hospital [facility]
[2022-01-23 20:45] LABS: Absolute Neutrophil Count 4.3 X10^3/uL (2.0-7.7); Basophil# 0.07 X10^3/uL; Basophil% 0.9 % (0-1); Eosinophil# 0.19 X10^3/uL; Eosinophils% 2.3 % (0-5); Hematocrit 36.5 % (40-54); Hemoglobin 11.2 g/dL (13.0-16.5); Lymphocyte % 29.4 % (19-41); Mean Corp Hgb Conc 30.7 g/dL (32-36); Mean Corpuscular Hgb 25.2 pg (27.0-32.0); Mean Corpuscular Volume 82.2 fL (80-94); Mean Platelet Vol. 11.4 fl (6.2-12.0); Monocyte# 1.03 X10^3/uL; Monocyte% 12.6 % (0-10); NRBC Flagged by Analyzer 0 % (0-5); Neutrophil # 4.34 X10^3/uL (2.7-7.7); Neutrophil % 53.2 % (47-70); POSITIVE MORPHOLOGY YES; Platelet Count 112 K/mm3 (150-450); RBC Distribution Width CV 20.6 % (11.6-14.6); RBC Distribution Width SD 61.5 fl (35.1-43.9); Red Blood Count 4.44 M/mm3 (4.6-6.2); White Blood Count 8.2 K/mm3 (4.4-11.0)
--- NOTE | 2022-01-23 20:50 | RAD_ITS ---
STUDY: X-RAY - BILATERAL RIBS WITH CHEST REASON FOR EXAM: Male, 71 years old. Fullness morning. Bilateral rib pain. TECHNIQUE - RIBS: 8 view(s) of the ribs. TECHNIQUE - CHEST: Single PA view of the chest. COMPARISON: Chest, 12/30/2020. FINDINGS - RIBS : Fracture of the anterolateral left sixth rib FINDINGS - CHEST: Slightly diminished inspiratory effort compared to prior study. No acute infiltrate or mass. There is no demonstrated pleural abnormality. Sternal cerclage wires are present from a prior sternotomy. The heart is unchanged in size. Normal mediastinum and sade. Normal visualized pulmonary arteries. Normal visualized aortic arch and descending thoracic aorta. There are diffuse degenerative changes of the visualized thoracic spine. There is degenerative osteoarthritis of the bilateral shoulders. There is no demonstrated abnormality of the visualized soft tissue structures of the upper abdomen. RAD/Ribs Naveen Min 4V w/PA Chest IMPRESSION: RIBS: Fracture of the anterolateral left sixth rib. CHEST: No acute cardiopulmonary disease or major interval change. Electronically Signed: Raul Gibson DO at 21:26 EDT Reading Location ID and State: [address] [place] [address] Tel [phone], Service support ,
[2022-01-23 20:55] LABS: ALB/GLOB Ratio 0.3 RATIO (0.9-2.4); AST(SGOT) 54 U/L (15-37); Alanine Aminotransfer ALT/SGPT 28 U/L (16-61); Albumin, Serum 1.7 g/dL (3.2-5.0); Alkaline Phosphatase 180 U/L (45-117); Anion Gap 6 (5-15); BUN 22 mg/dL (7-18); BUN/Creat Ratio 22.1 RATIO (10-20); Calcium,Total 8.3 mg/dL (8.5-10.1); Chloride 104 mmol/L (98-107); EST Glomerular Filtration Rate 78 mL/min (>60); Est Glom Filt Rate - Afr Amer 95 mL/min (>60); Estimated Creatinine Clearance 67.93 ml/min; Globulin 5.2 g/dL (2.2-4.2); Glucose 62 mg/dL (74-106); Potassium 3.7 mmol/L (3.5-5.1); Protein, Total 6.9 g/dL (6.4-8.2); Sodium Level 137 mmol/L (136-145)
[2022-01-23 21:04] LABS: Differential Indicated SCAN CRITERIA MET
[2022-01-23] MEDS: Dextrose 50%-Water 25 GM/50 ML DISP.SYRIN IV (21:06)
[2022-01-23 21:43] LABS: Anisocytosis 1+; Differential Comment SCANNED
[2022-01-23 22:25] VITALS: BP 106/59; PULSE 74; RESP 15; O2SAT 98
[2022-01-23] MEDS: HYDROmorphone 0.5 MG/0.5 ML SYRINGE IV (22:27)
[2022-01-23 23:05] LABS: Bedside Glucose 80 mg/dL (74-106)
--- NOTE | 2022-01-23 23:24 | HP.PCM.HOS_ITS ---
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 Reportedly 3-day before presentation patient fell out of bed. He was unresponsive. His blood glucose was 41. Paramedics were called and patient was given IV glucose. Patient improved. Patient was subsequently helped from the floor. A day before presentation patient was lethargic yet he was playing at home with a baby. Earlier on the day of presentation (about 4 AM ) reportedly patient fell. Patient reported to his that he fell and also patient's noted that there was blood on the floor. Further patient was groaning at home. However, per groaning is not unusual for patient when he is sleeping. Patient reported to his that a table fell on him. Patient could not move his left. Hospice nurse was called and family who was i nstructed to give patient prescribed Dilaudid; and for which patient received. Patient report that patient could not swallow so on the day of presentation patient did not receive his lactulose. Also on the day of presentation patient had not eaten. At the emergency department hospice nurse saw patient. Inpatient hospice was discussed. However patient/family revoked hospice. [facility] Medical History Anxiety Atherosclerotic heart disease of [place] coronary artery without angina pectoris Atrial fibrillation CAD (coronary artery disease) Carotid artery disease Cataract Cataract (lens) fragments in eye following cataract surgery, bilateral Chest pain Chronic cough Chronic headaches Chronic neck and back pain Cirrhosis Diabetes Essential hypertension Fatigue GERD (gastroesophageal reflux disease) History of coronary artery disease HLD (hyperlipidemia) Kidney stones Migraines Myocardial infarct Neuropathy Non-smoker NSTEMI (non-ST elevated myocardial infarction) Numbness and tingling in right hand Obstructive sleep apnea Pancreatitis Post traumatic stress disorder (PTSD) Restless legs syndrome Severe headache Type 2 diabetes mellitus Home Medications insulin aspart U-100 100 unit/mL (3 mL) subcutaneous pen 18 units subcut TIDCM high blood sugar 12/23/16 [History Last Taken 10/13/20] insulin glargine 100 unit/mL (3 mL) subcutaneous pen 40 units subcut BID high blood sugar 12/23/16 [History Last Taken 10/13/20] isosorbide mononitrate 30 mg tablet,extended release 24 hr 30 mg PO DAILY heart #90 tabs 07/13/18 [Rx Last Taken 10/12/20] nitroglycerin 0.4 mg sublingual tablet 0.4 mg sublingual Q5-15M PRN cp 12/26/18 [History Last Taken 1 Month Ago ~09/12/20] zolpidem 5 mg tablet (Ambien) 5 mg PO QHS PRN Sleep 10/13/20 [History Last Taken 3 Days Ago ~10/10/20] albuterol sulfate 90 mcg/actuation aerosol inhaler (Ventolin HFA) 2 puff inhalation Q6H PRN Wheezing 08/25/21 [History Last Taken Unknown] benzonatate 200 mg capsule 200 mg PO TID PRN Cough 08/25/21 [History Last Taken Unknown] carbidopa 10 mg-levodopa 100 mg tablet 1 tab PO QHS 08/25/21 [History Last Taken 12/05/21] clotrimazole 1 % topical cream 1 applic topical BID 08/25/21 [History Last Taken Unknown] dicyclomine 20 mg tablet 20 mg PO TID PRN abdominal cramps 08/25/21 [History Last Taken Unknown] empagliflozin 25 mg tablet 25 mg PO DAILY 08/25/21 [History Last Taken Unknown] furosemide 20 mg tablet 40 mg PO DAILY 08/25/21 [History Last Taken Unknown] lifitegrast 5 % eye drops in a dropperette 1 drp EACH EYE Q12H 08/25/21 [History Last Taken Unknown] spironolactone 50 mg tablet 50 mg PO DAILY 08/25/21 [History Last Taken 12/05/21] ammonium lactate 12 % lotion 1 applic topical DAILY 12/06/21 [History Last Taken Unknown] bacitracin 500 unit/gram topical ointment 1 applic topical TID 12/06/21 [History Last Taken Unknown] carboxymethylcellulose sodium 0.5 % eye drops 1 drp EACH EYE TID 12/06/21 [History Last Taken 12/05/21] duloxetine 20 mg capsule,delayed release 20 mg PO DAILY 12/06/21 [History Last Taken Unknown] glucose 4 gram chewable tablet 4 g PO Q15M PRN Hypoglycemia 12/06/21 [History Last Taken Unknown] lanolin alcohols-mineral oil-w.petrolatum-ceresin topical cream (Eucerin topical cream) 1 applic topical DAILY PRN Dry Skin 12/06/21 [History Last Taken Unknown] lidocaine 4 % topical cream 1 applic topical TID PRN Skin Cleansing 12/06/21 [History Last Taken Unknown] rifaximin 550 mg tablet (Xifaxan) 550 mg PO BID 12/06/21 [History Last Taken 12/06/21] bisacodyl 10 mg rectal suppository 10 mg CO DAILY PRN Constipation 01/23/22 [History Last Taken Unknown] haloperidol lactate 2 mg/mL oral concentrate 0.5 mg PO Q6H PRN PRN Nausea 01/23/22 [History Last Taken Unknown] hydromorphone 2 mg tablet (Dilaudid) 2 mg PO Q6H PRN Pain 01/23/22 [History Last Taken Unknown] hyoscyamine sulfate 0.125 mg tablet (Levsin) 0.125 mg PO DAILY PRN . 01/23/22 [History Last Taken Unknown] lorazepam 0.5 mg tablet (Ativan) 0.5 mg PO DAILY PRN Anxiety 01/23/22 [History Last Taken Unknown] prochlorperazine maleate 10 mg tablet 10 mg PO BID PRN Nausea 01/23/22 [History Last Taken Unknown] carvedilol 3.125 mg tablet 3.125 mg PO BID heart rate/blood pressure 01/24/22 [History Last Taken Unknown] Allergy/AdvReac Type Severity Reaction Status Date / Time oxycodone [From OxyContin] Allergy Shortness Verified 01/23/22 20:04 of breath atorvastatin [From Lipitor] AdvReac muscle Verified 01/23/22 20:04 weakness fish oil AdvReac muscle Verified 01/23/22 20:04 weakness morphine AdvReac MIGRAINE TAO Verified 01/23/22 20:04 Family History Mother Diabetes Heart disease Cancer Hypertension Father Diabetes Heart disease Hypertension CVA (cerebral vascular accident) Sister Ulcerative colitis Surgical History History of ankle surgery History of cholecystectomy History of coronary artery stent placement History of facial surgery Hx of CABG (~08/2017) S/P coronary artery stent placement (~07/05/18) Social History housing: house Smoking Status: Never smoker alcohol intake: never substance use type: does not use ROS ROS Narrative Pertinent positives and pertinent negatives as noted in HPI. All other systems were reviewed and are negative Vital Signs Vital Signs Vital Signs: 01/23/22 20:01 01/23/22 20:33 01/23/22 22:25 Temperature 97.3 F L Temperature Source Temporal Pulse Rate 76 74 Respiratory Rate 17 15 Blood Pressure 101/63 106/59 L Blood Pressure Mean 75 74 Pulse Ox 96 98 Oxygen Delivery Method Nasal Cannula Room Air Nasal Cannula Oxygen Flow Rate (L/min) 2 Weight Weight: 82 kg Body Mass Index (BMI) 25.9 Physical Exam Narrative Physical exam: General: Well-nourished, well-developed. Head: Normocephalic, atraumatic, no tenderness Eyes: Vision is grossly intact. EOMI ENT, no trauma, dry mucous membranes, no rhinorrhea Neck: Nontender, no thyromegaly CVS: Regular rate and rhythm. S1-S2 present. No murmur, gallop or rub. Respiratory : Mild diffuse Rales, chest wall nontender, no wheezing Abdomen: Soft, nontender, nondistended, normal bowel sounds, no masses : Deferred Extremities: Excoriation at left elbow and left forearm. Tender left side of ribs. Skin: Normal color, no trauma, abrasions Neuro: Lethargic. Notes it is the 10th month but does not state the year or the day. Psychiatry: Normal mood. Normal affect. Not depressed. Not anxious. Results Lab / Micro Data Result Diagrams: 01/23/22 20:32 01/23/22 20:32 Labs: Laboratory Results - last 24 hr 01/23/22 20:32: WBC 8.2, RBC 4.44 L, Hgb 11.2 L, Hct 36.5 L, MCV 82.2, MCH 25.2 L, MCHC 30.7 L, RDW Std Deviation 61.5 H, RDW Coeff of [place] 20.6 H, Plt Count 112 L, MPV 11.4, Immature Gran % (Auto) 1.600 H, Neut % (Auto) 53.2, Lymph % (Auto) 29.4, [place] % (Auto) 12.6 H, Eos % (Auto) 2.3, Baso % (Auto) 0.9, Absolute Neuts (auto) 4.3, Absolute Lymphs (auto) 2.40, Nucleated RBC % 0, Differential Comment SCANNED, Anisocytosis 1+ 01/23/22 20:32: Sodium 137, Potassium 3.7, Chloride 104, Carbon Dioxide 27.0, Anion Gap 6, BUN 22 H, Creatinine 1.00, Estim Creat Clear Calc 67.93, Est GFR (MDRD) Af Amer 95, Est GFR (MDRD) Non-Af 78, BUN/Creatinine Ratio 22.1 H, Glucose 62 L, Calcium 8.3 L, Total Bilirubin 0.80, AST 54 H, ALT 28, Alkaline Phosphatase 180 H, Total Protein 6.9, Albumin 1.7 L, Globulin 5.2 H, Albumin/Globulin Ratio 0.3 L 01/23/22 20:32: Ammonia 56.0 H 01/23/22 22:48: POC Glucose [address] 01/23/22 20:23 IMPRESSION: Negative Brain CT without contrast. Electronically Signed: Tramaine Bradley DO at 21:39 EDT , Cervical Spine CT 01/23/22 20:23 IMPRESSION: Degenerative changes of the cervical spine. No acute fracture or subluxation. Note: MRI is more sensitive than CT in detecting cord injury, ligamentous injury and epidural hematoma. If there is continued clinical concern for any of these entities, MRI should be considered. Electronically Signed: Raul Gibson DO at 21:22 EDT , Ribs w/Chest X-Ray 01/23/22 20:50 IMPRESSION: RIBS: Fracture of the anterolateral left sixth rib. CHEST: No acute cardiopulmonary disease or major interval change. Electronically Signed: Raul Gibson DO at 21:26 EDT Reading Location ID and State: [address] [place] [address] Tel [phone], Service support , Assessment & Plan Assessment/Plan (1) Altered mental status: (2) Acute encephalopathy: (3) Hyperammonemia: (4) Left rib fracture: PLAN: Plan Acute metabolic encephalopathy Ammonia level on presentation was 56. Likely hyperammonemia; and hypoglycemia contributing. Unlikely spontaneous bacterial peritonitis as patient has no other stigmata of infection except bandemia of 1.6% which could be reactive. Trend CBC. Due to concern of patient's swallowing ability will keep patient NPO. Lactulose rectally ordered. Trend ammonia level. We will put patient on a D5 infusion. Hold home p.o. Ativan. Paracentesis with ascitic fluid cell count and culture ordered. Dehydration Patient with dry mucous membrane BUN is 22. His BUN on 01/12/2022 was 13; and on 01/05/2022 was 18. Gentle IV hydration with dextrose ordered. Home diuretics held. Trend CMP. Fall/left rib fracture Fall likely secondary to encephalopathy. However PT and OT consulted for training and balance training. Brain CT was visualized and independently interpreted. No acute pathology seen. I agree with radiologist interpretation. CT with degenerative changes with no acute fracture or subluxation. Ribs w/Chest X-ray was visualized and independently interpreted. Fracture of the 6th and seventh rib seen. Per Radiologist there is a fracture of the anterolateral left sixth rib. Patient on p.o. Dilaudid at home. At this time we will hold off all p.o. medication. IV Dilaudid for pain. End-stage liver disease/cirrhosis/ascites With elevated liver enzymes and alkaline phosphatase. Not improving. Plans for Pleurx catheter outpatient on 01/26/2022. Consider discussing with a general surgeon whether this could be done in-house. Hold home diuresis. Patient on as needed home oxygen. Patient placed on oxygen supplementation at the ED. Weaned off oxygen supplementation at the ED. Diabetes mellitus with hypoglycemia Hold home hypoglycemic regimen. Dextrose infusion as above. Trend BMP. Parkinson disease Home carbidopa levodopa held secondary to dysphagia. Chronic anemia Stable DVT prophylaxis: With a plan to do a paracentesis no chemical prophylaxis ordered at this time. SCD ordered. Charges/Coding Visit Charges Inpatient E&M: 17837 Init Hosp L3
[2022-01-24] VITALS (10 sets, daily range): BP systolic 105–146; BP diastolic 55–65; PULSE 72–90; RESP 11–18; TEMP 36.2–36.9; O2SAT 92–98; BMI 25.2
[2022-01-24] MEDS: 0.9% Saline Lock 10 ML Syringe IV ×2 (01:18→12:08)
[2022-01-24] MEDS: Lactulose 20 GM/30 ML UDC 200 GM RC ×2 (02:54→06:28)
[2022-01-24 05:47] LABS: Absolute Neutrophil Count 5.2 X10^3/uL (2.0-7.7); Basophil# 0.09 X10^3/uL; Basophil% 1.1 % (0-1); Eosinophil# 0.17 X10^3/uL; Eosinophils% 2.1 % (0-5); Hematocrit 38.5 % (40-54); Hemoglobin 11.9 g/dL (13.0-16.5); Lymphocyte % 20.6 % (19-41); Mean Corp Hgb Conc 30.9 g/dL (32-36); Mean Corpuscular Hgb 25.6 pg (27.0-32.0); Mean Platelet Vol. 11.1 fl (6.2-12.0); Monocyte# 0.98 X10^3/uL; Monocyte% 11.9 % (0-10); NRBC Flagged by Analyzer 0 % (0-5); Neutrophil # 5.18 X10^3/uL (2.7-7.7); Neutrophil % 62.6 % (47-70); POSITIVE MORPHOLOGY YES; Platelet Count 114 K/mm3 (150-450); RBC Distribution Width CV 20.4 % (11.6-14.6); RBC Distribution Width SD 61.4 fl (35.1-43.9); Red Blood Count 4.64 M/mm3 (4.6-6.2); White Blood Count 8.3 K/mm3 (4.4-11.0)
[2022-01-24 05:50] LABS: Differential Indicated SCAN CRITERIA MET
[2022-01-24 06:24] LABS: ALB/GLOB Ratio 0.3 RATIO (0.9-2.4); AST(SGOT) 58 U/L (15-37); Alanine Aminotransfer ALT/SGPT 30 U/L (16-61); Albumin, Serum 1.7 g/dL (3.2-5.0); Alkaline Phosphatase 191 U/L (45-117); Anion Gap 8 (5-15); BUN 22 mg/dL (7-18); Calcium,Total 8.4 mg/dL (8.5-10.1); Chloride 103 mmol/L (98-107); EST Glomerular Filtration Rate 70 mL/min (>60); Est Glom Filt Rate - Afr Amer 84 mL/min (>60); Estimated Creatinine Clearance 61.76 ml/min; Globulin 5.5 g/dL (2.2-4.2); Glucose 113 mg/dL (74-106); Potassium 3.8 mmol/L (3.5-5.1); Protein, Total 7.2 g/dL (6.4-8.2); Sodium Level 137 mmol/L (136-145); Thyroid Stim Hormone (TSH) 3.22 uIU/mL (0.358-3.74)
[2022-01-24 06:30] LABS: Anisocytosis 2+; Platelet Estimate SLT DEC (ADEQ)
[2022-01-24] MEDS: BACITRACIN 15 GM Tube 1 APPLIC TOPICAL ×3 (06:33→20:49)
[2022-01-24 08:17] LABS: Vitamin D,25 Hydroxy 32.1 ng/mL
[2022-01-24] MEDS: HYDROmorphone 0.5 MG/0.5 ML SYRINGE IV (11:20)
[2022-01-24] MEDS: Ammonium Lactate 225 gm Bottle 1 APPLIC TOPICAL (11:21)
[2022-01-24] MEDS: Clotrimazole 1 APPLIC Tube TOPICAL ×2 (11:22→20:51)
--- NOTE | 2022-01-24 11:40 | CASEMGMT ---
NEISHA LEMONS Face to Face with patient for initial transition planning/care coordination assessment. RN CM introduced self and role at [facility]. Patient lying in bed, alert and oriented, daughter at bedside. Patient willing to participate in assessment and is able to answer all questions appropriately. Care providers, pharmacy, and demographics verified. Patient wishes to discharge home with resumption of hospice at home. Patient states he has no further needs or concerns at this time. CM to follow for discharge planning needs that may arise. PCP: Corby Specialists: DWAYNE Byrnes; Carolin, oncologist Preferred Pharmacy: [facility] Insurance: [employer] [facility] Prescription Benefit: yes Living Will/HPOA: yes, Julia Bishop, HPOA LNOK: , daughter Living Arrangements: Patient lives with and daughter in a 2 story home. Patient states he is independent and able to ambulate stairs. Transportation: self, DME/HHC: Patient has shower chair, raised toilet, cane, nebulizer, pulse ox, and home oxygen through Hospice. Patient is active with hospice at home. Disposition Plan: Patient to discharge home with resumption of hospice care, family support, and follow-up plans in place. Marisa GUTIERREZ, RN, CM
--- NOTE | 2022-01-24 15:33 | PCM.PN.HOSP ---
Subjective Subjective Follow-up on acute encephalopathy/fall: Patient was seen and examined. He complains of pain in his left rib region. His daughter was at the bedside. Patient's hospice status was revoked prior to admission. The daughter stated that the plan is to reinstate hospice at discharge. He denied any new complaints. He is ambulating in the room. Objective Data Objective Data Vital Signs: Vital Signs Temp Pulse Resp BP Pulse Ox O2 Del Method O2 Flow Rate 98.2 F 77 15 146/65 H 98 Nasal Cannula 2 01/24/22 12:43 01/24/22 12:43 01/24/22 12:43 01/24/22 12:43 01/24/22 12:43 01/24/22 15:12 01/24/22 15:12 Oxygen Flow Rate (L/min) 2 Oxygen Delivery Method Nasal Cannula Weight: 79.9 kg Body Mass Index (BMI) 25.2 Intake & Output: Intake and Output for Last 24 Hours 01/22/22 01/23/22 01/24/22 23:59 23:59 23:59 Intake Total 1048.75 / 1048.75 Balance 1048.75 / 1048.75 Lab / Micro Data Result Diagrams: 01/24/22 05:36 01/24/22 05:36 Labs: Laboratory Results - last 24 hr 01/23/22 20:32: WBC 8.2, RBC 4.44 L, Hgb 11.2 L, Hct 36.5 L, MCV 82.2, MCH 25.2 L, MCHC 30.7 L, RDW Std Deviation 61.5 H, RDW Coeff of [place] 20.6 H, Plt Count 112 L, MPV 11.4, Immature Gran % (Auto) 1.600 H, Neut % (Auto) 53.2, Lymph % (Auto) 29.4, [place] % (Auto) 12.6 H, Eos % (Auto) 2.3, Baso % (Auto) 0.9, Absolute Neuts (auto) 4.3, Absolute Lymphs (auto) 2.40, Nucleated RBC % 0, Differential Comment SCANNED, Anisocytosis 1+ 01/23/22 20:32: Sodium 137, Potassium 3.7, Chloride 104, Carbon Dioxide 27.0, Anion Gap 6, BUN 22 H, Creatinine 1.00, Estim Creat Clear Calc 67.93, Est GFR (MDRD) Af Amer 95, Est GFR (MDRD) Non-Af 78, BUN/Creatinine Ratio 22.1 H, Glucose 62 L, Calcium 8.3 L, Total Bilirubin 0.80, AST 54 H, ALT 28, Alkaline Phosphatase 180 H, Total Protein 6.9, Albumin 1.7 L, Globulin 5.2 H, Albumin/Globulin Ratio 0.3 L 01/23/22 20:32: Ammonia 56.0 H 01/23/22 22:48: POC Glucose 80 01/24/22 05:36: WBC 8.3, RBC 4.64, Hgb 11.9 L, Hct 38.5 L, MCV 83.0, MCH 25.6 L, MCHC 30.9 L, RDW Std Deviation 61.4 H, RDW Coeff of [place] 20.4 H, Plt Count 114 L, MPV 11.1, Immature Gran % (Auto) 1.700 H, Neut % (Auto) 62.6, Lymph % (Auto) 20.6, [place] % (Auto) 11.9 H, Eos % (Auto) 2.1, Baso % (Auto) 1.1 H, Absolute Neuts (auto) 5.2, Absolute Lymphs (auto) 1.70, Nucleated RBC % 0, Platelet Estimate SLT DEC, Anisocytosis 2+ 01/24/22 05:36: Sodium 137, Potassium 3.8, Chloride 103, Carbon Dioxide 26.0, Anion Gap 8, BUN 22 H, Creatinine 1.10, Estim Creat Clear Calc 61.76, Est GFR (MDRD) Af Amer 84, Est GFR (MDRD) Non-Af 70, BUN/Creatinine Ratio 20.0, Glucose 113 H, Calcium 8.4 L, Total Bilirubin 1.10 H, AST 58 H, ALT 30, Alkaline Phosphatase 191 H, Total Protein 7.2, Albumin 1.7 L, Globulin 5.5 H, Albumin/Globulin Ratio 0.3 L, TSH 3.22 01/24/22 05:36: Ammonia 34.0 H 01/24/22 05:36: Vitamin D 25-Hydroxy 32.1 Radiography Diagnostic Testing: Radiology Impression Brain CT 01/23/22 20:23 IMPRESSION: Negative Brain CT without contrast. Electronically Signed: Tramaine Bradley DO at 21:39 EDT , Cervical Spine CT 01/23/22 20:23 IMPRESSION: Degenerative changes of the cervical spine. No acute fracture or subluxation. Note: MRI is more sensitive than CT in detecting cord injury, ligamentous injury and epidural hematoma. If there is continued clinical concern for any of these entities, MRI should be considered. Electronically Signed: Raul Mineral BluffDO valerio at 21:22 EDT , Ribs w/Chest X-Ray 01/23/22 20:50 IMPRESSION: RIBS: Fracture of the anterolateral left sixth rib. CHEST: No acute cardiopulmonary disease or major interval change. Electronically Signed: Raul Gibson DO at 21:26 EDT Reading Location ID and State: [address] [place] [address] Tel [phone], Service support , Physical Exam Narrative Physical exam: General: Alert, Oriented x3, Cooperative, in pain, splinting the left side. HEENT: Atraumatic Oral: Moist Mucosa Neck: Supple Lungs: Diminished to auscultation Cardiovascular: HS I+II, regular, no murmurs Abdomen: Ascites++, bowel Sounds Present, Soft, Non Tender Extremities: No edema Skin: No rashes, No breakdown Neurological: Grossly intact Psych/Mental Status: Appropriate Assessment & Plan Assessment/Plan (1) Acute encephalopathy: PLAN: Plan 1. Acute metabolic encephalopathy, multifactorial, appears resolved 2. Acute hypoglycemia, resolved with treatment Continue to monitor 3. Acute hepatic encephalopathy secondary to liver cirrhosis from agent orange, improving Admitting ammonia was 56, 9 hours 46 Patient case frequent paracentesis, peritoneal catheter to be placed on Monday Hold hold off on paracentesis until Monday Continue on lactulose 4. Acute left-sided rib fracture secondary to fall, patient him pain, splint Will continue on oxycodone as needed, Lidoderm patches, encourage use of incentive spirometer 5. Type II DM, presented with hypoglycemia Continue to hold home insulin regimen 6. Parkinson's disease, continue on carbidopa levodopa 7. DVT prophylaxis?SCDs on account of chronic thrombocytopenia Charges/Coding Visit Charges Inpatient E&M: 65568 Subs Hosp L2
[2022-01-24] MEDS: Lactulose 20 GM/30 ML UDC PO ×2 (17:03→20:49)
[2022-01-24] MEDS: Glycerin/Hypromellose/PEG400 15 ml Bottle 1 DRP EACH EYE ×2 (17:05→20:49)
[2022-01-24] MEDS: Lidocaine 5% Patch 2 PATCH TOPICAL (17:06)
[2022-01-24] MEDS: rifAXIMin 550 MG Tablet PO ×2 (17:12→20:49)
[2022-01-24] MEDS: HYDROmorphone 2 MG TABLET PO (17:30)
[2022-01-24] MEDS: Carvedilol 3.125 MG TABLET PO (20:49)
[2022-01-24] MEDS: Carbidopa/Levodopa 10/100 Tablet PO (20:49)
[2022-01-25] VITALS (8 sets, daily range): BP systolic 101–120; BP diastolic 50–53; PULSE 70–82; RESP 15–18; TEMP 36.6–37.4; O2SAT 92–98; BMI 25.2
[2022-01-25] MEDS: Lactulose 20 GM/30 ML UDC PO ×4 (05:37→18:23)
[2022-01-25] MEDS: Glycerin/Hypromellose/PEG400 15 ml Bottle 1 DRP EACH EYE ×3 (05:37→21:05)
[2022-01-25] MEDS: BACITRACIN 15 GM Tube 1 APPLIC TOPICAL ×3 (05:38→21:05)
[2022-01-25] MEDS: HYDROmorphone 2 MG TABLET PO ×3 (05:42→18:53)
[2022-01-25 06:35] LABS: Absolute Lymphocyte Count 1.86 X10^3/uL (0.83-4.51); Absolute Neutrophil Count 3.5 X10^3/uL (2.0-7.7); Basophil# 0.05 X10^3/uL; Basophil% 0.8 % (0-1); Eosinophil# 0.13 X10^3/uL; Hematocrit 35.3 % (40-54); Hemoglobin 11.1 g/dL (13.0-16.5); Lymphocyte # 1.86 X10^3/ul (0.83-4.51); Lymphocyte % 28.4 % (19-41); Mean Corp Hgb Conc 31.4 g/dL (32-36); Mean Corpuscular Hgb 25.9 pg (27.0-32.0); Mean Corpuscular Volume 82.5 fL (80-94); Mean Platelet Vol. 10.8 fl (6.2-12.0); Monocyte# 0.93 X10^3/uL; Monocyte% 14.2 % (0-10); NRBC Flagged by Analyzer 0 % (0-5); Neutrophil # 3.49 X10^3/uL (2.7-7.7); Neutrophil % 53.1 % (47-70); POSITIVE MORPHOLOGY YES; Platelet Count 106 K/mm3 (150-450); RBC Distribution Width CV 20.3 % (11.6-14.6); RBC Distribution Width SD 61.4 fl (35.1-43.9); Red Blood Count 4.28 M/mm3 (4.6-6.2); White Blood Count 6.6 K/mm3 (4.4-11.0)
[2022-01-25 06:58] LABS: Differential Indicated SCAN CRITERIA MET
[2022-01-25 07:01] LABS: ALB/GLOB Ratio 0.3 RATIO (0.9-2.4); AST(SGOT) 47 U/L (15-37); Alanine Aminotransfer ALT/SGPT 18 U/L (16-61); Albumin, Serum 1.7 g/dL (3.2-5.0); Alkaline Phosphatase 183 U/L (45-117); Anion Gap 7 (5-15); BUN 22 mg/dL (7-18); BUN/Creat Ratio 19.6 RATIO (10-20); Calcium,Total 8.5 mg/dL (8.5-10.1); Chloride 104 mmol/L (98-107); Creatinine, Serum 1.12 mg/dL (0.70-1.30); EST Glomerular Filtration Rate 68 mL/min (>60); Est Glom Filt Rate - Afr Amer 83 mL/min (>60); Estimated Creatinine Clearance 60.65 ml/min; Globulin 5.1 g/dL (2.2-4.2); Glucose 246 mg/dL (74-106); Potassium 3.8 mmol/L (3.5-5.1); Protein, Total 6.8 g/dL (6.4-8.2); Sodium Level 136 mmol/L (136-145)
[2022-01-25 07:14] LABS: Anisocytosis 1+; Differential Comment SCANNED; Microcytosis 1+
[2022-01-25] MEDS: Lidocaine 5% Patch 2 PATCH TOPICAL (09:04)
[2022-01-25] MEDS: rifAXIMin 550 MG Tablet PO ×2 (09:05→21:04)
[2022-01-25] MEDS: Carvedilol 3.125 MG TABLET PO ×2 (09:05→21:05)
[2022-01-25] MEDS: Ammonium Lactate 225 gm Bottle 1 APPLIC TOPICAL (11:14)
[2022-01-25] MEDS: Clotrimazole 1 APPLIC Tube TOPICAL ×2 (11:16→21:05)
--- NOTE | 2022-01-25 11:49 | PCM.PN.HOSP ---
Subjective Subjective Follow-up on acute encephalopathy/fall: Patient was seen and examined.? No new complaints. Still complains of pain in his ribs. No acute events overnight. Objective Data Objective Data Vital Signs: Vital Signs Temp Pulse Resp BP Pulse Ox O2 Del Method O2 Flow Rate 99 F 73 15 110/51 L 94 Room Air 2 01/25/22 08:56 01/25/22 08:56 01/25/22 08:56 01/25/22 08:56 01/25/22 08:56 01/25/22 08:56 01/25/22 07:24 Oxygen Flow Rate (L/min) 2 Oxygen Delivery Method Room Air Weight: 79.9 kg Body Mass Index (BMI) 25.2 Intake & Output: Intake and Output for Last 24 Hours 01/23/22 01/24/22 01/25/22 23:59 23:59 23:59 Intake Total 1048.75 / 1048.75 240 / 240 Balance 1048.75 / 1048.75 240 / 240 Lab / Micro Data Result Diagrams: 01/25/22 06:25 01/25/22 06:25 Labs: Laboratory Results - last 24 hr 01/25/22 06:25: Ammonia 48.0 H 01/25/22 06:25: WBC 6.6, RBC 4.28 L, Hgb 11.1 L, Hct 35.3 L, MCV 82.5, MCH 25.9 L, MCHC 31.4 L, RDW Std Deviation 61.4 H, RDW Coeff of [place] 20.3 H, Plt Count 106 L, MPV 10.8, Immature Gran % (Auto) 1.500 H, Neut % (Auto) 53.1, Lymph % (Auto) 28.4, [place] % (Auto) 14.2 H, Eos % (Auto) 2.0, Baso % (Auto) 0.8, Absolute Neuts (auto) 3.5, Absolute Lymphs (auto) 1.86, Nucleated RBC % 0, Differential Comment SCANNED, Anisocytosis 1+, Microcytosis 1+ 01/25/22 06:25: Sodium 136, Potassium 3.8, Chloride 104, Carbon Dioxide 25.0, Anion Gap 7, BUN 22 H, Creatinine 1.12, Estim Creat Clear Calc 60.65, Est GFR (MDRD) Af Amer 83, Est GFR (MDRD) Non-Af 68, BUN/Creatinine Ratio 19.6, Glucose 246 H, Calcium 8.5, Total Bilirubin 0.80, AST 47 H, ALT 18, Alkaline Phosphatase 183 H, Total Protein 6.8, Albumin 1.7 L, Globulin 5.1 H, Albumin/Globulin Ratio 0.3 L Physical Exam Narrative Physical exam: General: Alert, Oriented x3, Cooperative, in pain, splinting the left side. HEENT: Atraumatic Oral: Moist Mucosa Neck: Supple Lungs: Diminished to auscultation Cardiovascular: HS I+II, regular, no murmurs Abdomen: Ascites++, bowel Sounds Present, Soft, Non Tender Extremities: No edema Skin: No rashes, No breakdown Neurological: Grossly intact Psych/Mental Status: Appropriate Assessment & Plan Assessment/Plan (1) Acute encephalopathy: PLAN: Plan 1. Acute metabolic encephalopathy, multifactorial, appears resolved 2. Acute hypoglycemia, resolved with treatment Continue to monitor 3. Acute hepatic encephalopathy secondary to liver cirrhosis from agent orange, improving Admitting ammonia was 56, ammonia today is 48 Patient has history of frequent paracentesis, peritoneal catheter to be placed on Monday Hold hold off on paracentesis until Monday Continue on lactulose 4. Acute left-sided 6th rib fracture secondary to fall, patient continues to be splinting on the left side Will continue on oxycodone as needed, Lidoderm patches, encourage use of incentive spirometer 5. Type II DM, presented with hypoglycemia Continue to hold home insulin regimen 6. Parkinson's disease, continue on carbidopa levodopa 7. DVT prophylaxis?SCDs on account of chronic thrombocytopenia Charges/Coding Visit Charges Inpatient E&M: 32139 Subs Hosp L2
--- NOTE | 2022-01-25 14:50 | CASEMGMT ---
Carolin from Hospice asked that SW keep them updated on patient's discharge. Patient's plan is home on Hospice. Plan: Home with resumption of [facility]. Dorothy JAIME
[2022-01-25 17:45] LABS: Bedside Glucose 355 mg/dL (74-106)
[2022-01-25] MEDS: Insulin Lispro 100 UNIT/ML INSULN.PEN 10 UNIT SC (18:26)
[2022-01-25] MEDS: Mag Hydrox/Al Hydrox/Simeth 30 ML UDC PO (19:08)
[2022-01-25] MEDS: Pregabalin 75 MG Capsule 150 MG PO (21:04)
[2022-01-25] MEDS: Carbidopa/Levodopa 10/100 Tablet PO (21:05)
[2022-01-25] MEDS: Insulin Glargine-YFGN 100 UNIT/ML Pen 20 UNIT SC (21:06)
[2022-01-25] MEDS: 0.9% Saline Lock 10 ML Syringe IV (21:10)
[2022-01-25 22:50] LABS: Bedside Glucose 345 mg/dL (74-106)
[2022-01-26] VITALS (14 sets, daily range): BP systolic 103–131; BP diastolic 50–60; PULSE 65–77; RESP 14–18; TEMP 36.3–37; O2SAT 90–98
[2022-01-26] MEDS: HYDROmorphone 2 MG TABLET PO ×2 (01:45→14:34)
[2022-01-26] MEDS: Lactulose 20 GM/30 ML UDC PO ×3 (01:45→13:06)
[2022-01-26 06:22] LABS: Absolute Lymphocyte Count 1.85 X10^3/uL (0.83-4.51); Absolute Neutrophil Count 3.7 X10^3/uL (2.0-7.7); Basophil# 0.05 X10^3/uL; Basophil% 0.7 % (0-1); Hematocrit 35.8 % (40-54); Hemoglobin 11.1 g/dL (13.0-16.5); Lymphocyte # 1.85 X10^3/ul (0.83-4.51); Lymphocyte % 27.6 % (19-41); Mean Corpuscular Hgb 25.6 pg (27.0-32.0); Mean Corpuscular Volume 82.5 fL (80-94); Monocyte# 0.82 X10^3/uL; Monocyte% 12.2 % (0-10); NRBC Flagged by Analyzer 0 % (0-5); Neutrophil # 3.69 X10^3/uL (2.7-7.7); Neutrophil % 55.2 % (47-70); POSITIVE COUNT YES; Platelet Count 89 K/mm3 (150-450); RBC Distribution Width CV 19.5 % (11.6-14.6); RBC Distribution Width SD 59.2 fl (35.1-43.9); Red Blood Count 4.34 M/mm3 (4.6-6.2); White Blood Count 6.7 K/mm3 (4.4-11.0)
[2022-01-26] MEDS: Glycerin/Hypromellose/PEG400 15 ml Bottle 1 DRP EACH EYE (06:27)
[2022-01-26] MEDS: BACITRACIN 15 GM Tube 1 APPLIC TOPICAL ×2 (06:27→12:05)
[2022-01-26 06:47] LABS: ALB/GLOB Ratio 0.3 RATIO (0.9-2.4); AST(SGOT) 47 U/L (15-37); Alanine Aminotransfer ALT/SGPT 19 U/L (16-61); Albumin, Serum 1.5 g/dL (3.2-5.0); Alkaline Phosphatase 193 U/L (45-117); Anion Gap 6 (5-15); BUN 20 mg/dL (7-18); BUN/Creat Ratio 18.3 RATIO (10-20); Calcium,Total 8.2 mg/dL (8.5-10.1); Chloride 101 mmol/L (98-107); Creatinine, Serum 1.09 mg/dL (0.70-1.30); EST Glomerular Filtration Rate 70 mL/min (>60); Est Glom Filt Rate - Afr Amer 85 mL/min (>60); Estimated Creatinine Clearance 62.32 ml/min; Globulin 5.1 g/dL (2.2-4.2); Glucose 231 mg/dL (74-106); Potassium 3.8 mmol/L (3.5-5.1); Protein, Total 6.6 g/dL (6.4-8.2); Sodium Level 131 mmol/L (136-145)
[2022-01-26 09:01] LABS: Bedside Glucose 198 mg/dL (74-106)
--- NOTE | 2022-01-26 09:16 | NURSING ---
Called report to Doug DRIVER in AC surgery
[2022-01-26] MEDS: Cefazolin 2 GM in 0.9% Normal Saline 100 ML IV (10:23)
--- NOTE | 2022-01-26 11:36 | OP.PCM_ITS ---
Report of Operation Date of Procedure: 01/26/22 Pre-Operative Diagnosis: Cirrhosis and ascites Post-Operative Diagnosis: Same Surgery/Procedure Performed:: Ultrasound guided placement of tunneled Pleurx catheter into the abdomen Description of Procedure: Patient was brought back to the operating room and a light MAC anesthesia was induced. The right side of the abdomen was prepped and draped in usual sterile fashion. Ultrasound was used to inspect the abdomen and ice pocket of fluid was found. Next an area of skin was injected with local anesthetic as well as an area of skin inferior to this and the bridge between them. 2 small incisions were made. A needle was used under ultrasound guidance to access the pocket of fluid and the guidewire was placed through this and the needle was removed. Next over the guidewire a peel-away sheath was placed and then the guidewire was removed. The catheter was placed on the tunneler and brought from the lower incision to the upper incision and then into the peel-away sheath and the peel- away sheath was removed leaving the catheter in place. The superior skin incision was then closed with 3-0 Vicryl suture and Dermabond. The cuff was securely inside the subcutaneous tissue. The catheter was connected to suction and 3 L of straw-colored fluid were removed. The catheter was then capped and the dressing was applied. Patient was taken to PACU in stable condition and tolerated the procedure well with no drop in blood pressure. Grafts/Implants Used: Pleurx catheter into the abdominal cavity Admit VTE Documentation VTE Mechan Device Prophylaxis: SCD's
--- NOTE | 2022-01-26 11:38 | PN_ITS ---
Progress Note The patient had been previously scheduled for elective abdominal Pleurx catheter today however he was admitted for a fall. The catheter was placed as he was inpatient and here and available. He tolerated the procedure well. Home hospice will take care of supplies and drainage after discharge. Rodo Odonnell MD Pager: [facility] [address] [place] [address], [address] [place] [address] Office:
--- NOTE | 2022-01-26 11:38 | PCM.PN.BLA ---
Progress Note The patient had been previously scheduled for elective abdominal Pleurx catheter today however he was admitted for a fall. The catheter was placed as he was inpatient and here and available. He tolerated the procedure well. Home hospice will take care of supplies and drainage after discharge. Rodo Odonnell MD Pager: [facility] [address] [place] [address], [address] [place] [address] Office:
--- NOTE | 2022-01-26 11:47 | DS.PCM_ITS ---
Providers Date of Admission: 01/23/22 Date of Discharge: 01/26/22 Primary Care Physician: Dr. Dima Tavarez MD Reason For Visit: ACUTE ENCEPHALOPATHY Diagnosis Discharge Diagnosis (1) Acute encephalopathy: Status: Resolved Code(s): G93.40 - Encephalopathy, unspecified Plan 1. Acute metabolic encephalopathy, multifactorial 2. Acute hypoglycemia 3. 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 Acute left-sided 6th rib fracture secondary to fall 5. Type II DM 6. Parkinson's disease Medications at Discharge Home Medications insulin aspart U-100 100 unit/mL (3 mL) subcutaneous pen 18 units subcut TIDCM high blood sugar 12/23/16 insulin glargine 100 unit/mL (3 mL) subcutaneous pen 40 units subcut BID high blood sugar 12/23/16 isosorbide mononitrate 30 mg tablet,extended release 24 hr 30 mg PO DAILY heart #90 tabs 07/13/18 nitroglycerin 0.4 mg sublingual tablet 0.4 mg sublingual Q5-15M PRN cp 12/26/18 zolpidem 5 mg tablet (Ambien) 5 mg PO QHS PRN Sleep 10/13/20 albuterol sulfate 90 mcg/actuation aerosol inhaler (Ventolin HFA) 2 puff inhalation Q6H PRN Wheezing 08/25/21 benzonatate 200 mg capsule 200 mg PO TID PRN Cough 08/25/21 carbidopa 10 mg-levodopa 100 mg tablet 1 tab PO QHS parkinson 08/25/21 clotrimazole 1 % topical cream 1 applic topical BID dryness 08/25/21 dicyclomine 20 mg tablet 20 mg PO TID PRN abdominal cramps 08/25/21 empagliflozin 25 mg tablet 25 mg PO DAILY diabetes 08/25/21 lifitegrast 5 % eye drops in a dropperette 1 drp EACH EYE Q12H dry eyes 08/25/21 spironolactone 50 mg tablet 50 mg PO DAILY water pill 08/25/21 ammonium lactate 12 % lotion 1 applic topical DAILY dryness 12/06/21 bacitracin 500 unit/gram topical ointment 1 applic topical TID antibiotic ointment 12/06/21 carboxymethylcellulose sodium 0.5 % eye drops 1 drp EACH EYE TID dry eyes 12/06/21 duloxetine 20 mg capsule,delayed release 20 mg PO DAILY depression 12/06/21 glucose 4 gram chewable tablet 4 g PO Q15M PRN Hypoglycemia 12/06/21 lanolin alcohols-mineral oil-w.petrolatum-ceresin topical cream (Eucerin topical cream) 1 applic topical DAILY PRN Dry Skin 12/06/21 lidocaine 4 % topical cream 1 applic topical TID PRN Skin Cleansing 12/06/21 rifaximin 550 mg tablet (Xifaxan) 550 mg PO BID IBS 12/06/21 bisacodyl 10 mg rectal suppository 10 mg [place] DAILY PRN Constipation 01/23/22 haloperidol lactate 2 mg/mL oral concentrate 0.5 mg PO Q6H PRN PRN Nausea 01/23/22 hydromorphone 2 mg tablet (Dilaudid) 2 mg PO Q6H PRN Pain 01/23/22 hyoscyamine sulfate 0.125 mg tablet (Levsin) 0.125 mg PO DAILY PRN tremors 01/23/22 lorazepam 0.5 mg tablet (Ativan) 0.5 mg PO DAILY PRN Anxiety 01/23/22 prochlorperazine maleate 10 mg tablet 10 mg PO BID PRN Nausea 01/23/22 carvedilol 3.125 mg tablet 3.125 mg PO BID heart rate/blood pressure 01/24/22 pregabalin 150 mg capsule 150 mg PO BID pain 01/24/22 lactulose 20 gram/30 mL oral solution 20 g (30 mL) PO Q6H 30 days #3,600 mL 01/26/22 lidocaine 5 % topical patch 2 patch topical DAILY 30 days #60 ea 01/26/22 Hospital Course Operations None Procedures - (Abdominal pleurx catheter and paracentesis 01/26/22) Summary of Care Provided Minutes Spent on Discharge: 35 Hospital Course: 71-year-old male with past medical history of liver cirrhosis reportedly second wilian to peña lorenzo, who gets frequent paracentesis, and is currently in hospice presented with altered mental status that started 3 days prior to admission. Patient reportedly fell out of bed 3 days prior to admission. He was unresponsive. His blood glucose was 41. The paramedics were called, he was given IV glucose. He felt improved. He was subsequently helped from the floor. On the day of presentation, patient fell and the found him groaning. He could not move his left side. Family revoked hospice in the emergency room. Patient was found to have acute hepatic encephalopathy. His admitting ammonia level was 56. He was also found to be dehydrated. Chest x-ray was showed fractu re of the left sixth anterolateral rib. Patient was admitted to the progressive care unit, given gentle IV fluids, continued on lactulose and rifaximin. He continue to be more responsive. He was alert oriented x3 by the next morning. He had pain medications as well as Lidoderm patches for his rib fracture. Patient had episodes of hypoglycemia and his insulin regimen was held couple of times during his hospital stay. He was resumed back on a lower dose of his antidiabetic regimen at discharge. Patient underwent peritoneal Pleurx catheter placement as well as paracentesis today with 3 L of fluid were removed. There were no acute events during this hospital stay. Patient was discharged back home with hospice. Physical Exam Narrative Physical exam: General: Alert, Oriented x3, Cooperative, in pain, splinting the left side. HEENT: Atraumatic Oral: Moist Mucosa Neck: Supple Lungs: Diminished to auscultation Cardiovascular: HS I+II, regular, no murmurs Abdomen: Ascites++, bowel Sounds Present, Soft, Non Tender Extremities: No edema Skin: No rashes, No breakdown Neurological: Grossly intact Psych/Mental Status: Appropriate Weight / BMI Weight Weight: 79.9 kg Body Mass Index (BMI) 25.2 ABG / Lab / Microbiology Data Result Diagrams: 01/26/22 06:00 01/26/22 06:00 Laboratory: Laboratory Results - last 24 hr 01/25/22 17:23: POC Glucose 355 H 01/25/22 21:01: POC Glucose 345 H 01/26/22 06:00: Ammonia 45.0 H 01/26/22 06:00: WBC 6.7, RBC 4.34 L, Hgb 11.1 L, Hct 35.8 L, MCV 82.5, MCH 25.6 L, MCHC 31.0 L, RDW Std Deviation 59.2 H, RDW Coeff of Angeline 19.5 H, Plt Count 89 L, MPV TNP, Immature Gran % (Auto) 1.300 H, Neut % (Auto) 55.2, Lymph % (Auto) 27.6, [place] % (Auto) 12.2 H, Eos % (Auto) 3.0, Baso % (Auto) 0.7, Absolute Neuts (auto) 3.7, Absolute Lymphs (auto) 1.85, Nucleated RBC % 0 01/26/22 06:00: Sodium 131 L, Potassium 3.8, Chloride 101, Carbon Dioxide 24.0, Anion Gap 6, BUN 20 H, Creatinine 1.09, Estim Creat Clear Calc 62.32, Est GFR (MDRD) Af Amer 85, Est GFR (MDRD) Non-Af 70, BUN/Creatinine Ratio 18.3, Glucose 231 H, Calcium 8.2 L, Total Bilirubin 1.10 H, AST 47 H, ALT 19, Alkaline Phosphatase 193 H, Total Protein 6.6, Albumin 1.5 L, Globulin 5.1 H, Albumin/Globulin Ratio 0.3 L 01/26/22 08:33: POC Glucose 198 H D/C Instructions Discharge Diet: No restrictions Meaningful Use Info Meaningful Use Diagnoses (Choose all that apply): None applicable Discharge Plan Admission Admit Date/Time: 01/23/22 23:25 Primary Reason for Your Visit: Acute hepatic encephalopathy Attending Provider: Nakita Garvey Primary Care Provider: Dima Tavarez Consulting Providers: Haja Breen Instructions Additional Instructions / Restrictions: You are being discharged with hospice. Continue per Hospice recommendation. Discharge Orders/Prescriptions Prescriptions: New lidocaine 5 % Adhesive Patch,Medicated 2 patch topical DAILY 30 Days Qty: 60 0RF Protocol: *Topical Application Instructions APPLICATION INSTRUCTIONS: To be applied to the left side of the chest lactulose 20 gram/30 mL Solution 20 g PO Q6H 30 Days Qty: 3600 0RF Continued nitroglycerin 0.4 mg tablet, sublingual 0.4 mg SUBLINGUAL Q5-15M PRN (Reason: cp) insulin aspart U-100 100 UNITS/ML insulin pen 18 units subcut TIDCM Label Comments: diabetes insulin glargine 100 UNITS/ML insulin pen 40 units subcut BID Label Comments: diabetes zolpidem [Ambien] 5 mg Tablet 5 mg PO QHS PRN (Reason: Sleep) benzonatate 200 mg Capsule 200 mg PO TID PRN (Reason: Cough) dicyclomine 20 mg Tablet 20 mg PO TID PRN (Reason: abdominal cramps) carbidopa-levodopa 10-100 mg Tablet 1 tab PO QHS albuterol sulfate [Ventolin HFA] 90 mcg/actuation Hfa Aerosol Inhaler 2 puff INHALATION Q6H PRN (Reason: Wheezing) clotrimazole 1 % Cream 1 applic TOPICAL BID spironolactone 50 mg Tablet 50 mg PO DAILY empagliflozin 25 mg Tablet 25 mg PO DAILY lifitegrast 5 % Dropperette 1 drp EACH EYE Q12H ammonium lactate 12 % Lotion 1 applic TOPICAL DAILY bacitracin 500 unit/gram Ointment 1 applic TOPICAL TID carboxymethylcellulose sodium 0.5 % Drops 1 drp EACH EYE TID Xifaxan 550 mg Tablet 550 mg PO BID lidocaine 4 % Cream 1 applic TOPICAL TID PRN (Reason: Skin Cleansing) glucose 4 gram Tablet,Chewable 4 g PO Q15M PRN (Reason: Hypoglycemia) Rx Instructions: until symptoms of low blood sugar are controlled duloxetine 20 mg Capsule,Delayed Release(Dr/Ec) 20 mg PO DAILY Eucerin Cream 1 applic TOPICAL DAILY PRN (Reason: Dry Skin) prochlorperazine maleate 10 mg Tablet 10 mg PO BID PRN (Reason: Nausea) hydromorphone [Dilaudid] 2 mg Tablet 2 mg PO Q6H PRN (Reason: Pain) lorazepam [Ativan] 0.5 mg Tablet 0.5 mg PO DAILY PRN (Reason: Anxiety) bisacodyl 10 mg Suppository 10 mg OK DAILY PRN (Reason: Constipation) hyoscyamine sulfate [Levsin] 0.125 mg Tablet 0.125 mg PO DAILY PRN (Reason: tremors) haloperidol lactate 2 mg/mL Concentrate 0.5 mg PO Q6H PRN PRN (Reason: Nausea) carvedilol 3.125 mg tablet 3.125 mg PO BID Rx Instructions: must administer with a meal/food, one daily for seven days, then one twice a day pregabalin 150 mg Capsule 150 mg PO BID isosorbide mononitrate 30 mg tablet extended release 24 hr 30 mg PO DAILY Qty: 90 3RF Discontinued furosemide 20 mg Tablet 40 mg PO DAILY Referrals / Follow Up: Dima Tavarez MD [Primary Care Provider] - In 1 Week Disposition Disposition (needs filled in before D/C Order can be placed): Hospice in Home Charges/Coding Visit Charges Inpatient E&M: 40628 Disch Hosp
[2022-01-26] MEDS: Insulin Glargine-YFGN 100 UNIT/ML Pen 20 UNIT SC (12:02)
[2022-01-26] MEDS: Ammonium Lactate 225 gm Bottle 1 APPLIC TOPICAL (12:04)
[2022-01-26] MEDS: Clotrimazole 1 APPLIC Tube TOPICAL (12:05)
[2022-01-26] MEDS: Pregabalin 75 MG Capsule 150 MG PO (12:06)
[2022-01-26] MEDS: Lidocaine 5% Patch 2 PATCH TOPICAL (12:07)
[2022-01-26] MEDS: rifAXIMin 550 MG Tablet PO (12:07)
[2022-01-26] MEDS: Insulin Lispro 100 UNIT/ML INSULN.PEN 10 UNIT SC (13:06)
--- NOTE | 2022-01-26 13:21 | CASEMGMT ---
FALLON called Julia at Hospice and let her know patient will be leaving [facility] around 2:30. FALLON also faxed d/c instructions to [facility]. Plan: d/c home with [facility]. Dorothy JAIME
--- NOTE | 2022-01-26 13:59 | PHA.DC.MR ---
Pharmacy Service has performed discharge medication reconciliation for this patient. The patient's discharge medication list was reviewed for discrepancies and discrepancies were resolved. Home Medications insulin aspart U-100 100 unit/mL (3 mL) subcutaneous pen 18 units subcut TIDCM high blood sugar 12/23/16 insulin glargine 100 unit/mL (3 mL) subcutaneous pen 40 units subcut BID high blood sugar 12/23/16 isosorbide mononitrate 30 mg tablet,extended release 24 hr 30 mg PO DAILY heart #90 tabs 07/13/18 nitroglycerin 0.4 mg sublingual tablet 0.4 mg sublingual Q5-15M PRN cp 12/26/18 zolpidem 5 mg tablet (Ambien) 5 mg PO QHS PRN Sleep 10/13/20 albuterol sulfate 90 mcg/actuation aerosol inhaler (Ventolin HFA) 2 puff inhalation Q6H PRN Wheezing 08/25/21 benzonatate 200 mg capsule 200 mg PO TID PRN Cough 08/25/21 carbidopa 10 mg-levodopa 100 mg tablet 1 tab PO QHS parkinson 08/25/21 clotrimazole 1 % topical cream 1 applic topical BID dryness 08/25/21 dicyclomine 20 mg tablet 20 mg PO TID PRN abdominal cramps 08/25/21 empagliflozin 25 mg tablet 25 mg PO DAILY diabetes 08/25/21 lifitegrast 5 % eye drops in a dropperette 1 drp EACH EYE Q12H dry eyes 08/25/21 spironolactone 50 mg tablet 50 mg PO DAILY water pill 08/25/21 ammonium lactate 12 % lotion 1 applic topical DAILY dryness 12/06/21 bacitracin 500 unit/gram topical ointment 1 applic topical TID antibiotic ointment 12/06/21 carboxymethylcellulose sodium 0.5 % eye drops 1 drp EACH EYE TID dry eyes 12/06/21 duloxetine 20 mg capsule,delayed release 20 mg PO DAILY depression 12/06/21 glucose 4 gram chewable tablet 4 g PO Q15M PRN Hypoglycemia 12/06/21 lanolin alcohols-mineral oil-w.petrolatum-ceresin topical cream (Eucerin topical cream) 1 applic topical DAILY PRN Dry Skin 12/06/21 lidocaine 4 % topical cream 1 applic topical TID PRN Skin Cleansing 12/06/21 rifaximin 550 mg tablet (Xifaxan) 550 mg PO BID IBS 12/06/21 bisacodyl 10 mg rectal suppository 10 mg [place] DAILY PRN Constipation 01/23/22 haloperidol lactate 2 mg/mL oral concentrate 0.5 mg PO Q6H PRN PRN Nausea 01/23/22 hydromorphone 2 mg tablet (Dilaudid) 2 mg PO Q6H PRN Pain 01/23/22 hyoscyamine sulfate 0.125 mg tablet (Levsin) 0.125 mg PO DAILY PRN tremors 01/23/22 lorazepam 0.5 mg tablet (Ativan) 0.5 mg PO DAILY PRN Anxiety 01/23/22 prochlorperazine maleate 10 mg tablet 10 mg PO BID PRN Nausea 01/23/22 carvedilol 3.125 mg tablet 3.125 mg PO BID heart rate/blood pressure 01/24/22 pregabalin 150 mg capsule 150 mg PO BID pain 01/24/22 lactulose 20 gram/30 mL oral solution 20 g (30 mL) PO Q6H 30 days #3,600 mL 01/26/22 lidocaine 5 % topical patch 2 patch topical DAILY 30 days #60 ea 01/26/22
[2022-01-26 14:45] LABS: Bedside Glucose 228 mg/dL (74-106)
== END 2022-01-26 16:24 | disposition hospice, home (50) | DRG 642 ==
LOC: ED 23:29 → PCU 01-24 00:13
PROVIDERS: Surgery; Admitting Provider Hospitalist; Emergency Provider Emergency Medicine; PCP Family Medicine; Visit Provider Internal Medicine
PROC: 0W9930Z Drainage of Right Pleural Cavity with Drainage Device, Percutaneous Approach (ICD-10-PCS; CPT 32550; principal; 2022-01-26 10:15)
DX: E72.20 Disorder of urea cycle metabolism, unspecified (principal); S22.32XA Fracture of one rib, left side, initial encounter for closed fracture; R18.8 Other ascites; E11.649 Type 2 diabetes mellitus with hypoglycemia without coma; D69.6 Thrombocytopenia, unspecified; K72.10 Chronic hepatic failure without coma; K76.82 Hepatic encephalopathy; K74.69 Other cirrhosis of liver; E11.40 Type 2 diabetes mellitus with diabetic neuropathy, unspecified; Z79.4 Long term (current) use of insulin; G20 Parkinson's disease; D64.9 Anemia, unspecified; I25.10 Atherosclerotic heart disease of native coronary artery without angina pectoris; E78.5 Hyperlipidemia, unspecified; I10 Essential (primary) hypertension; E86.0 Dehydration; W19.XXXA Unspecified fall, initial encounter; I25.2 Old myocardial infarction; F41.9 Anxiety disorder, unspecified; G89.29 Other chronic pain; F43.10 Post-traumatic stress disorder, unspecified; R29.6 Repeated falls; Z90.49 Acquired absence of other specified parts of digestive tract; Z95.5 Presence of coronary angioplasty implant and graft; Z51.5 Encounter for palliative care; Z79.899 Other long term (current) drug therapy
CPT/HCPCS: 36415; 70450; 71111; 72125; 80053; 82140; 82306; 82962; 84443; 85025; 92526; 92610; 93005; 97110; 97116; 97162; 97166; 97530; 97535; 99251; 99285; A4216; C1729; G0463; J2405

== ENCOUNTER 2022-01-31 15:31 | Emergency (ER) | payer OTHER, SELFPAY ==
[2018-03-21 13:40] VITALS: BMI 31.6
[2022-01-31 15:32] VITALS: BP 108/63; PULSE 69; RESP 13; TEMP 35.9; O2SAT 99; BMI 24.8
--- NOTE | 2022-01-31 15:56 | CT_ITS ---
STUDY: CT BRAIN WITHOUT CONTRAST REASON FOR EXAM: Male, 71 years old. Confusion. RADIATION DOSAGE (If Supplied By Facility): CTDIvol = ( 44.99 ) mGy, DLP = ( 863.60 ) mGycm TECHNIQUE: Transaxial CT imaging of the brain was performed without administration of intravenous contrast material. Individualized dose optimization techniques were used for this CT. COMPARISON: 01/23/2022. FINDINGS: Normal soft tissue structures. Normal calvarium. Normal size ventricles and extra-axial spaces for the patient''s age. Normal white matter tracts of the cerebral hemispheres. There are small punctate calcifications of the basal ganglia which are seen in the aging brain as a normal variant. Normal brainstem. Normal cerebellum. There is no intracranial hemorrhage. There are no findings of an acute ischemic infarction. Minimal mucoperiosteal reaction in the sphenoid sinus. CT/Brain/Head without Contrast IMPRESSION: No acute intracranial or calvarial abnormality. There is no major interval change. Electronically Signed: Raul Gibson DO at 16:38 EDT ,
--- NOTE | 2022-01-31 15:57 | EKG12_ITS ---
Test Reason : Blood Pressure : / mmHG Vent. Rate : 064 BPM Atrial Rate : 064 BPM P-R Int : 164 ms QRS Dur : 094 ms QT Int : 436 ms P-R-T Axes : 066 -16 014 degrees QTc Int : 449 ms Sinus rhythm with Premature atrial complexes Anteroseptal infarct , age undetermined Abnormal ECG Confirmed by CONCEPCIÓN REYNA, MARIO ([id number]), editor dictionary GENEVA VERA ([id number]) on 02/02/2022 6:41:21 AM Referred By: Confirmed By:MARIO BEEBE MD
--- NOTE | 2022-01-31 16:00 | CM.ED ---
Addendum entered by Lizz Matute 01/31/22 20:25: FALLON spoke to patient's and daughter. SW provided emotional support. indicated she would like patient to stay at hospital or [facility]. appears to be very tired. FALLON was advised by engine head repairer that patient is going to [facility]. Lizz ALFONSO Original Note: FALLON Note SW received call from patient's . said that patient has hospice and he got agitated and tried to pull his drain out. said that patient's temp this morning was 99 but generally it is 98. said that she wanted contracting executive to come and check patient's drain but the kids want me to take him to the ED. said that the hospice social work told her that if she goes to the ED she will revoke hospice privileges and then they would not pay. SW advised that she needs to do whatever medically she feels patient needs. said if I don't bring him to the Ed the kids will say I killed their dad. asked what to tell ED staff and social sciences department chair said to tell them what she had told this typewriter ribbon winder. FALLON updated Chasity Cabezas and [facility] Triage regarding patient. Jocelynn said that Hospice had already called and updated her regarding patient and patient could go to [facility] if family agrees. Lizz ALFONSO
[2022-01-31] MEDS: Lactulose 20 GM/30 ML UDC PO (16:16)
--- NOTE | 2022-01-31 16:25 | RAD_ITS ---
STUDY: X-RAY CHEST REASON FOR EXAM: Male, 71 years old. Weakness. Altered mental status. TECHNIQUE: Single AP portable view of the chest. COMPARISON: Chest, 12/30/2020. RIBS with PA chest, 01/23/2022. FINDINGS: Limited inspiratory effort with minimal bibasilar atelectasis. No new infiltrate or mass. There is no demonstrated pleural abnormality. Sternal cerclage wires are present from a prior sternotomy. The heart is unchanged in size. Normal mediastinum and sade. Normal visualized pulmonary arteries. Normal visualized aortic arch and descending thoracic aorta. There are diffuse degenerative changes of the visualized thoracic spine. There is degenerative osteoarthritis of the bilateral shoulders. There is no demonstrated abnormality of the visualized soft tissue structures of the upper abdomen. RAD/Chest 1 View (Portable) IMPRESSION: No acute cardiopulmonary disease is resolution of the mild vascular congestion seen on the prior study. Electronically Signed: Raul Gibson DO at 16:40 EDT ,
[2022-01-31 16:39] LABS: ALB/GLOB Ratio 0.3 RATIO (0.9-2.4); AST(SGOT) 70 U/L (15-37); Alanine Aminotransfer ALT/SGPT 23 U/L (16-61); Albumin, Serum 1.6 g/dL (3.2-5.0); Alkaline Phosphatase 224 U/L (45-117); Anion Gap 4 (5-15); BUN 22 mg/dL (7-18); BUN/Creat Ratio 23.5 RATIO (10-20); Calcium,Total 8.4 mg/dL (8.5-10.1); Chloride 101 mmol/L (98-107); Creatinine, Serum 0.94 mg/dL (0.70-1.30); EST Glomerular Filtration Rate 84 mL/min (>60); Est Glom Filt Rate - Afr Amer 102 mL/min (>60); Estimated Creatinine Clearance 72.27 ml/min; Globulin 5.2 g/dL (2.2-4.2); Glucose 140 mg/dL (74-106); Potassium 4.4 mmol/L (3.5-5.1); Protein, Total 6.8 g/dL (6.4-8.2); Sodium Level 132 mmol/L (136-145); Troponin-I HS 12 pg/mL (3.0-78.0)
[2022-01-31 16:55] LABS: Absolute Lymphocyte Count 2.17 X10^3/uL (0.83-4.51); Absolute Neutrophil Count 5.3 X10^3/uL (2.0-7.7); Basophil# 0.07 X10^3/uL; Basophil% 0.8 % (0-1); Eosinophil# 0.18 X10^3/uL; Eosinophils% 2.1 % (0-5); Hematocrit 34.7 % (40-54); Lymphocyte # 2.17 X10^3/ul (0.83-4.51); Lymphocyte % 24.9 % (19-41); Mean Corp Hgb Conc 31.7 g/dL (32-36); Mean Corpuscular Hgb 25.9 pg (27.0-32.0); Mean Corpuscular Volume 81.6 fL (80-94); Monocyte# 0.84 X10^3/uL; Monocyte% 9.6 % (0-10); NRBC Flagged by Analyzer 0 % (0-5); Neutrophil # 5.34 X10^3/uL (2.7-7.7); Neutrophil % 61.2 % (47-70); Platelet Count 134 K/mm3 (150-450); RBC Distribution Width CV 19.6 % (11.6-14.6); RBC Distribution Width SD 58.7 fl (35.1-43.9); Red Blood Count 4.25 M/mm3 (4.6-6.2); White Blood Count 8.7 K/mm3 (4.4-11.0)
--- NOTE | 2022-01-31 17:29 | EDS_ITS ---
HPI History of Present Illness Chief Complaint: Alt LOC Informant: patient and family Narrative Narrative: Patient has nonalcoholic cirrhosis thought to be due to [place]. He was encephalopathic and admitted to the hospital a week ago, he has been home for a bout 4 to 5 days. After being on lactulose for couple days he was a lot better and at his baseline mental status. First couple days at home are like that. But slowly over the last 2-3 days, he has gotten back to the way he was when he was admitted to the hospital. Lethargic, disoriented. No other new symptoms. Most of the history comes in the family, patient is poor historian due to his mental status. They have been giving lactulose 15 cc twice daily. [facility] Medical History (Updated 01/31/22 @ 17:[address] Jose Luis Clifford MD) Anxiety Atherosclerotic heart disease of [place] coronary artery without angina pectoris Atrial fibrillation CAD (coronary artery disease) Carotid artery disease Cataract Cataract (lens) fragments in eye following cataract surgery, bilateral Chest pain Chronic cough Chronic headaches Chronic neck and back pain Cirrhosis Diabetes Encounter for pleural drainage tube placement Essential hypertension Fatigue GERD (gastroesophageal reflux disease) History of coronary artery disease HLD (hyperlipidemia) Kidney stones Migraines Myocardial infarct WHITLOCK (nonalcoholic steatohepatitis) Neuropathy Non-smoker NSTEMI (non-ST elevated myocardial infarction) Numbness and tingling in right hand Obstructive sleep apnea Pancreatitis Post traumatic stress disorder (PTSD) Restless legs syndrome Severe headache Type 2 diabetes mellitus Home Medications insulin aspart U-100 100 unit/mL (3 mL) subcutaneous pen 10 units subcut BID high blood sugar 12/23/16 [History Last Taken 01/30/22] insulin glargine 100 unit/mL (3 mL) subcutaneous pen 20 units subcut BID high blood sugar 12/23/16 [History Last Taken 01/30/22] isosorbide mononitrate 30 mg tablet,extended release 24 hr 30 mg PO DAILY heart #90 tabs 07/13/18 [Rx Last Taken 01/31/22] nitroglycerin 0.4 mg sublingual tablet 0.4 mg sublingual Q5-15M PRN cp 12/26/18 [History Last Taken 1 Month Ago ~09/12/20] zolpidem 5 mg tablet (Ambien) 5 mg PO QHS PRN Sleep 06/29/21 [History Last Taken 3 Days Ago ~10/10/20] albuterol sulfate 90 mcg/actuation aerosol inhaler (Ventolin HFA) 2 puff i nhalation Q6H PRN Wheezing 08/25/21 [History Last Taken Unknown] benzonatate 200 mg capsule 200 mg PO TID PRN Cough 08/25/21 [History Last Taken Unknown] carbidopa 10 mg-levodopa 100 mg tablet 1 tab PO QHS parkinson 08/25/21 [History Last Taken 01/30/22] dicyclomine 20 mg tablet 20 mg PO TID PRN abdominal cramps 08/25/21 [History Last Taken 01/31/22] empagliflozin 25 mg tablet 25 mg PO DAILY diabetes 08/25/21 [History Last Taken 01/30/22] lifitegrast 5 % eye drops in a dropperette (Xiidra) 1 drp EACH EYE Q12H dry eyes 08/25/21 [History Last Taken 01/30/22] spironolactone 50 mg tablet 50 mg PO DAILY water pill 08/25/21 [History Last Taken 01/30/22] bacitracin 500 unit/gram topical ointment 1 applic topical TID antibiotic ointment 12/06/21 [History Last Taken 01/30/22] duloxetine 20 mg capsule,delayed release 20 mg PO DINNER depression 12/06/21 [History Last Taken 01/30/22] glucose 4 gram chewable tablet 4 g PO Q15M PRN Hypoglycemia 12/06/21 [History Last Taken Unknown] rifaximin 550 mg tablet (Xifaxan) 550 mg PO BID 12/06/21 [History Last Taken 01/31/22] haloperidol lactate 2 mg/mL oral concentrate 0.5 mg PO Q6H PRN PRN Nausea 01/23/22 [History Last Taken 01/30/22] hydromorphone 2 mg tablet (Dilaudid) 2 mg PO Q6H PRN Pain 01/23/22 [History Last Taken 01/31/22] hyoscyamine sulfate 0.125 mg tablet (Levsin) 0.125 mg PO DAILY PRN tremors 01/23/22 [History Last Taken 01/30/22] lorazepam 0.5 mg tablet (Ativan) 0.5 mg PO DAILY PRN Anxiety 01/23/22 [History Last Taken 01/28/22] prochlorperazine maleate 10 mg tablet 10 mg PO BID PRN Nausea 01/23/22 [History Last Taken Unknown] carvedilol 3.125 mg tablet 3.125 mg PO BID heart rate/blood pressure 01/24/22 [History Last Taken Unknown] pregabalin 150 mg capsule 150 mg PO BID pain 01/24/22 [History Last Taken 01/31/22] lactulose 20 gram/30 mL oral solution 20 g (30 mL) PO Q6H 30 days #3,600 mL 01/26/22 [Rx Last Taken 01/30/22] lidocaine 5 % topical patch 2 patch topical DAILY 30 days #60 ea 01/26/22 [Rx Last Taken 01/31/22] Allergy/AdvReac Type Severity Reaction Status Date / Time oxycodone [From OxyContin] Allergy Shortness Verified 01/23/22 20:04 of breath atorvastatin [From Lipitor] AdvReac muscle Verified 01/23/22 20:04 weakness fish oil AdvReac muscle Verified 01/23/22 20:04 weakness morphine AdvReac MIGRAINE TAO Verified 01/23/22 20:04 Family History Mother Diabetes Heart disease Cancer Hypertension Father Diabetes Heart disease Hypertension CVA (cerebral vascular accident) Sister Ulcerative colitis Surgical History History of ankle surgery History of cholecystectomy History of coronary artery stent placement History of facial surgery Hx of CABG (~08/2017) S/P coronary artery stent placement (~07/05/18) Social History housing: house Smoking Status: Never smoker alcohol intake: never substance use type: does not use ROS ROS ED Review of Systems ROS Unobtainable: due to mental status Constitutional Constitutional ED: Reports fatigue; Denies chills or fever(s) Eyes Eyes: Denies blurry vision, change in vision or diplopia ENT ENT ED: Denies ear pain or sore throat Cardiovascular Cardiovascular: Denies chest pain or racing heartbeat Respiratory/Chest Respiratory/Chest: Denies cough or dyspnea Gastrointestinal Gastrointestinal: Denies abdominal pain or nausea Musculoskeletal Musculoskeletal: Denies back pain or neck pain Integumentary Denies abscess or rash Neurologic Neurologic: Denies headache(s) or paresthesias EXAM Physical Exam Const Vital Signs: 01/31/22 15:32 01/31/22 19:21 Temperature 96.6 F L Temperature Source Temporal Pulse Rate 69 69 Respiratory Rate 13 12 Blood Pressure 108/63 110/58 L Blood Pressure Mean 78 75 Pulse Ox 99 98 Oxygen Delivery Method Nasal Cannula Room Air Oxygen Flow Rate (L/min) 3 Positive well nourished and well developed Constitutional Narrative: Lethargic, alerts easily to voice, Conversive, answers questions appropriately. General Appearance ED: well developed and NAD HEENT Reports moist mucous membranes normocephalic and atraumatic Eyes PERRL and EOMs intact bilaterally General Eye ED: Negative for scleral icterus Neck full ROM, no lymphadenopathy and supple Resp normal respiratory effort and clear to auscultation bilaterally Cardio regular rate, regular rhythm and no murmurs GI non-tender and non-distended GI Narrative: Mild ascites/distention. Ascites catheter in the right upper quadrant appears to be tunneled, it is in place the site looks benign without signs of infection, fluid in it without blood. Auscultation: normoactive bowel sounds Palpation: soft Back/Spine no CVA tenderness General Back: other FROM Extremity normal to inspection General Extremety ED: Negative for edema, pulses abnormal or tenderness General Extremity: Negative for edema or pulses abnormal Neuro oriented x3, CN's II-XII intact bilaterally and no sensory deficits noted Neuro Narrative: Generalized weakness, moves all 4 extremities equally. Sensorium / Orientation: awake and alert Psych Psych Narrative: flat affect Skin no rashes or lesions noted and no wounds MDM MDM MDM Narrative Medical decision making narrative: Other than the elevated ammonia, the rest of his work-up is relatively unremarkable. He has not provided urine for us yet but I have a low suspicion of a UTI based on his history and lack of symptoms so I do not think we need to catheterize him just to get a sample. CT of the head is unremarkable. His ammonia is 63. I gave him a dose of lactulose and in reviewing his discharge summary he is supposed to be on 30 cc 4 times per day, and I suspect his underdosing of this is probably the issue. Family does want to take him home. However, he is so disoriented according to and weak and unable to stand that they are requesting he be admitted to the hospital for the medications and increase lactulose dosing so that he can get strong enough to at least function at home for them and not pull out his catheter. I think that is reasonable. I discussed with the hospitalist, however [facility], until he is strong enough to be sent back home on hospice, and does not need acute care hospital, which I tend to agree with. I discussed with hospice personnel who came and evaluated him, they spoke with her physician who was in agreement with this, and the plan is to transport him to inpatient hospice facility locally since they do have a bed available for him. While awaiting a ride, family stated they were going to take him themselves, and they did not want to wait for a ride so they asked for discharge paperwork. Lab Data Attestation: I reviewed the patient's lab results. Labs: Laboratory Results - last 24 hr 01/31/22 01/31/22 01/31/22 16:07 16:07 16:07 WBC 8.7 RBC 4.25 L Hgb 11.0 L Hct 34.7 L MCV 81.6 MCH 25.9 L MCHC 31.7 L RDW Std Deviation 58.7 H RDW Coeff of Angeline 19.6 H Plt Count 134 L MPV 11.0 Immature Gran % (Auto) 1.400 H Neut % (Auto) 61.2 Lymph % (Auto) 24.9 [place] % (Auto) 9.6 Eos % (Auto) 2.1 Baso % (Auto) 0.8 Absolute Neuts (auto) 5.3 Absolute Lymphs (auto) 2.17 Nucleated RBC % 0 Sodium 132 L Potassium 4.4 Chloride 101 Carbon Dioxide 27.0 Anion Gap 4 L BUN 22 H Creatinine 0.94 Estim Creat Clear Calc 72.27 Est GFR (MDRD) Af Amer 102 Est GFR (MDRD) Non-Af 84 BUN/Creatinine Ratio 23.5 H Glucose 140 H Calcium 8.4 L Total Bilirubin 0.80 AST 70 H ALT 23 Alkaline Phosphatase 224 H Ammonia 63.0 H Troponin I High Sens 12 Total Protein 6.8 Albumin 1.6 L Globulin 5.2 H Albumin/Globulin Ratio 0.3 L Urine Color Urine Clarity Urine pH Ur Specific [place] Urine Protein Urine Glucose (UA) Urine Ketones Urine Occult Blood Urine Nitrite Urine Bilirubin Urine Urobilinogen Ur Leukocyte Esterase Urine RBC Urine WBC Ur Squamous Epith Cells Urine Bacteria Urine Mucus Urine Yeast 01/31/22 20:50 WBC RBC Hgb Hct MCV MCH MCHC RDW Std Deviation RDW Coeff of [place] Plt Count MPV Immature Gran % (Auto) Neut % (Auto) Lymph % (Auto) [place] % (Auto) Eos % (Auto) Baso % (Auto) Absolute Neuts (auto) Absolute Lymphs (auto) Nucleated RBC % Sodium Potassium Chloride Carbon Dioxide Anion Gap BUN Creatinine Estim Creat Clear Calc Est GFR (MDRD) Af Amer Est GFR (MDRD) Non-Af BUN/Creatinine Ratio Glucose Calcium Total Bilirubin AST ALT Alkaline Phosphatase Ammonia Troponin I High Sens Total Protein Albumin Globulin Albumin/Globulin Ratio Urine Color Yellow Urine Clarity Clear Urine pH 6.0 Ur Specific [place] 1.010 Urine Protein 15 H Urine Glucose (UA) 1000 H Urine Ketones Negative Urine Occult Blood Negative Urine Nitrite Negative Urine Bilirubin Negative Urine Urobilinogen Normal Ur Leukocyte Esterase 25 H Urine RBC 0 SEEN Urine WBC 0-5 SEEN Ur Squamous Epith Cells 0 SEEN Urine Bacteria RARE Urine Mucus 0 SEEN Urine Yeast RARE Radiography Chest X-Ray - ED: 1 View, Read by ED Physician and No Infiltrates Diagnostic Testing: Clinical Impression(s) from Imaging Studies Brain CT 01/31/22 15:56 IMPRESSION: No acute intracranial or calvarial abnormality. There is no major interval change. Electronically Signed: Raul Gibson DO at 16:38 EDT Reading Location ID and State: [address] [place] [address] Tel [phone], Service support , Chest X-Ray 01/31/22 16:25 IMPRESSION: No acute cardiopulmonary disease is resolution of the mild vascular congestion seen on the prior study. Electronically Signed: Raul Gibson DO at 16:40 EDT Reading Location ID and State: [facility] [employer] / [place] Tel [phone], Service support , Rhythm Strip Rhythm Strip: Sinus Rhythm Rate: 65 Ectopy: PAC(s) EKG Initial EKG: Attestation: I personally reviewed and interpreted this EKG as follows: Interpretation: Sinus Rhythm and No Acute Injury Pattern Discharge Plan Triage Chief Complaint: Alt LOC ED Provider: Jose Luis Clifford Dx/Rx/DC Orders Clinical Impression: Acute hepatic encephalopathy, Cirrhosis, non-alcoholic Instructions: Hepatic Encephalopathy Prescriptions: No Action nitroglycerin 0.4 mg tablet, sublingual 0.4 mg SUBLINGUAL Q5-15M PRN (Reason: cp) insulin aspart U-100 100 UNITS/ML insulin pen 10 units subcut BID Label Comments: diabetes insulin glargine 100 UNITS/ML insulin pen 20 units subcut BID Label Comments: diabetes zolpidem [Ambien] 5 mg Tablet 5 mg PO QHS PRN (Reason: Sleep) benzonatate 200 mg Capsule 200 mg PO TID PRN (Reason: Cough) dicyclomine 20 mg Tablet 20 mg PO TID PRN (Reason: abdominal cramps) carbidopa-levodopa 10-100 mg Tablet 1 tab PO QHS albuterol sulfate [Ventolin HFA] 90 mcg/actuation Hfa Aerosol Inhaler 2 puff INHALATION Q6H PRN (Reason: Wheezing) spironolactone 50 mg Tablet 50 mg PO DAILY empagliflozin 25 mg Tablet 25 mg PO DAILY Xiidra 5 % Dropperette 1 drp EACH EYE Q12H bacitracin 500 unit/gram Ointment 1 applic TOPICAL TID Xifaxan 550 mg Tablet 550 mg PO BID glucose 4 gram Tablet,Chewable 4 g PO Q15M PRN (Reason: Hypoglycemia) Rx Instructions: until symptoms of low blood sugar are controlled duloxetine 20 mg Capsule,Delayed Release(Dr/Ec) 20 mg PO DINNER prochlorperazine maleate 10 mg Tablet 10 mg PO BID PRN (Reason: Nausea) hydromorphone [Dilaudid] 2 mg Tablet 2 mg PO Q6H PRN (Reason: Pain) lorazepam [Ativan] 0.5 mg Tablet 0.5 mg PO DAILY PRN (Reason: Anxiety) hyoscyamine sulfate [Levsin] 0.125 mg Tablet 0.125 mg PO DAILY PRN (Reason: tremors) haloperidol lactate 2 mg/mL Concentrate 0.5 mg PO Q6H PRN PRN (Reason: Nausea) carvedilol 3.125 mg tablet 3.125 mg PO BID Rx Instructions: must administer with a meal/food, one daily for seven days, then one twice a day pregabalin 150 mg Capsule 150 mg PO BID lidocaine 5 % Adhesive Patch,Medicated 2 patch topical DAILY 30 Days Qty: 60 0RF Protocol: *Topical Application Instructions APPLICATION INSTRUCTIONS: To be applied to the left side of the chest lactulose 20 gram/30 mL Solution 20 g PO Q6H 30 Days Qty: 3600 0RF isosorbide mononitrate 30 mg tablet extended release 24 hr 30 mg PO DAILY Qty: 90 3RF Primary Care Provider: Dima Tavarez Referrals: Dima Tavarez MD [Primary Care Provider] - Activity Restrictions/Additional Instructions: to Inpatient Hospice tonight Disposition Disposition: DC/Tx to Another Type of HCF
[2022-01-31 19:21] VITALS: BP 110/58; PULSE 69; RESP 12; O2SAT 98
[2022-01-31] MEDS: HYDROmorphone 1 MG/ML Syringe IV (19:43)
--- NOTE | 2022-01-31 20:03 | ED.RN ---
hospice nurse called back they are sending [employer] consultant nurse in when free to admit patient to the inpatient unit
[2022-01-31 20:58] LABS: Mucous, Urine 0 SEEN /hpf (<or=2+); Red Blood Cells-Urine 0 SEEN /hpf (0-5); Squamous Epithelial Cells - UA 0 SEEN /hpf (0-5)
[2022-01-31 20:59] LABS: Color, Urine Yellow (Yellow); Glucose, Dipstick 1000 mg/dl (Normal); Ketone-Dipstick Negative (Negative); Leukocyte Esterase-Dipstick 25 /ul (Negative); Nitrite-Dipstick Negative (Negative); Occult Blood-Urine Negative /ul (Negative); Protein-Dipstick 15 mg/dl (Negative); Urine Bilirubin Dipstick Negative (Negative); Urine Clarity Clear (Clear); Urine Urobilinogen Normal (Normal)
[2022-01-31 21:08] LABS: Bacteria RARE /hpf (None Seen); White Blood Cells 0-5 SEEN /hpf (0-5); Yeast-Urine RARE /hpf (None Seen)
[2022-01-31 22:49] VITALS: BP 107/59; PULSE 69; RESP 13; O2SAT 99
== END 2022-01-31 22:51 | disposition other institution (70) ==
PROVIDERS: Emergency Provider Emergency Medicine; PCP Family Medicine; Visit Provider Emergency Medicine
DX: K76.82 Hepatic encephalopathy (principal); K74.60 Unspecified cirrhosis of liver; E11.40 Type 2 diabetes mellitus with diabetic neuropathy, unspecified; Z79.4 Long term (current) use of insulin; I10 Essential (primary) hypertension; I25.10 Atherosclerotic heart disease of native coronary artery without angina pectoris; I25.2 Old myocardial infarction; G47.33 Obstructive sleep apnea (adult) (pediatric); Z95.5 Presence of coronary angioplasty implant and graft; Z79.899 Other long term (current) drug therapy
CPT/HCPCS: 70450; 71045; 80053; 81001; 82140; 84484; 85025; 93005; 96374; 99284; A4216